=== PATIENT | male | born 1955 | race Caucasian/White ===

== ENCOUNTER → 2018-08-30 19:51 | Outpatient (CLI) | payer MEDICARE, MEDICAID, SELFPAY | PROVIDERS: Family Provider Internal Medicine; PCP Internal Medicine | DX: G47.33 Obstructive sleep apnea (adult) (pediatric) (principal) | CPT/HCPCS: 95810 ==

== ENCOUNTER 2019-01-03 13:17 | Observation (INO) | payer MEDICARE, MEDICAID, SELFPAY ==
[2019-01-03] VITALS (10 sets, daily range): BP systolic 103–125; BP diastolic 64–85; PULSE 60–73; RESP 14–18; TEMP 36.4–37.1; O2SAT 92–99; BMI 33.3; BMI 30.8; BMI 30.9
--- NOTE | 2019-01-03 13:35 | EKG12_ITS ---
Test Reason : CP ADMISSION Blood Pressure : / mmHG Vent. Rate : 063 BPM Atrial Rate : 063 BPM P-R Int : 118 ms QRS Dur : 080 ms QT Int : 394 ms P-R-T Axes : 070 055 031 degrees QTc Int : 403 ms Normal sinus rhythm Normal ECG Confirmed by MILA FRENCH, DIMITRIOS ([id number]), senior editor ROSA SAGASTUME ([id number] on 01/09/2019 5:21:05 PM Referred By: Blair Francisco Confirmed By:DIMITRIOS ZARAGOZA MD
--- NOTE | 2019-01-03 13:35 | RAD_ITS ---
STUDY: X-RAY CHEST REASON FOR EXAM: Male, 63 years old. Chest pain. Shortness of breath. TECHNIQUE: Single AP portable view of the chest. COMPARISON: Comparison is made with prior study dated September 08, 2016. FINDINGS: EKG electrodes are seen. Hyperinflation. Scattered calcified granulomas. There is no demonstrated pleural abnormality. There is mild cardiac enlargement. Normal mediastinum and laurence. Normal visualized pulmonary arteries. Normal visualized aortic arch and descending thoracic aorta. There are diffuse degenerative changes of the visualized thoracic spine. Normal visualized ribs, clavicles, and shoulders. There is no demonstrated abnormality of the visualized soft tissue structures of the upper abdomen. RAD/Chest 1 View (Portable) IMPRESSION: Hyperinflation. The lungs are clear. Electronically Signed: Clinton Banda, at 14:23 EDT , Service support ,
[2019-01-03 13:55] LABS: Absolute Lymphocyte Count 1.64 X10^3/ul (0.83-4.51); Absolute Neutrophil Count 4.5 X10^3/uL (2.0-7.7); Basophil# 0.01 X10^3/uL; Basophil% 0.1 % (0-1); Eosinophil# 0.21 X10^3/uL; Hematocrit 42.2 % (40-54); Hemoglobin 13.9 g/dl (13.0-16.5); Lymphocyte # 1.64 X10^3/ul (4.0); Lymphocyte % 23.7 % (19-41); Mean Corp Hgb Conc 32.9 g/gl (32-36); Mean Corpuscular Volume 94.2 fL (80-94); Mean Platelet Vol. 10.2 fl (6.2-12.0); Monocyte% 8.7 % (0-10); Neutrophil # 4.46 X10^3/uL (2.7-7.7); Neutrophil % 64.4 % (47-70); Platelet Count 270 K/mm3 (150-450); RBC Distribution Width CV 13.3 % (11.6-14.6); RBC Distribution Width SD 45.7 fl (35.1-43.9); Red Blood Count 4.48 M/mm3 (4.6-6.2); White Blood Count 6.9 K/mm3 (4.4-11.0)
[2019-01-03 14:03] LABS: Anion Gap 2 (5-15); BUN 19 mg/dL (7-18); Calcium,Total 8.7 mg/dL (8.5-10.1); Chloride 108 mmol/L (98-107); Creatinine, Serum 0.95 mg/dL (0.70-1.30); EST Glomerular Filtration Rate 84 mL/min (>60); Est Glom Filt Rate - Afr Amer 102 mL/min (>60); Estimated Creatinine Clearance 72.48 ml/min; Glucose 127 mg/dL (74-106); Sodium Level 139 mmol/L (136-145)
[2019-01-03 14:06] LABS: POSITIVE COUNT NO; POSITIVE DIFFERENTIAL NO; POSITIVE MORPHOLOGY NO
--- NOTE | 2019-01-03 14:14 | ED.VISSUMM ---
- ER Visit Summary Date of Service: 01/03/19 Chief Complaint: Chest pain History of Present Illness: The patient is a 63 M with history of stents x1 resents with chest pain that started 9 hours prior to arrival. No known injury. Pain is on the left. No fever or chills. He has no back pain or tearing sensation. He has no PE risk factors. Physical Examination: Otherwise normal exam he does not appear toxic. He has normal pulse ox, heart is regular lungs are clear bilaterally no chest wall tenderness he is got a soft and nontender abdomen with no lower extremity edema. Emergency Department Course and Treatment: Patient has an unremarkable EKG, chest x-ray is unremarkable except for a very slight effusion. He does have quite a few risk factors including prior PTCA, his last stress test was over 2 years ago, he will need admission for further cardiac testing Disposition: Admit to the hospital in stable condition Impression: Chest pain This note was generated with [employer] dictation software. It may contain incorrect words, spelling, and punctuation that were not noted in review of the chart prior to signing ED Disposition - Plan for ED Patient: Referrals: Grant Krause MD [Primary Care Provider] -
[2019-01-03] MEDS: Ondansetron 4 MG/2 ML Vial IV (14:22)
[2019-01-03] MEDS: Morphine 4 MG/ML Syringe IV (14:23)
--- NOTE | 2019-01-03 14:45 | PCM.HP.STD ---
Problem List (1) Chest pain Status: Acute (2) Type II diabetes mellitus Status: Chronic (3) Coronary artery disease Status: Chronic Comment: Status post stent 3 years ago. (4) Hyperlipidemia Status: Chronic (5) Hypertension Status: Chronic History of Present Illness Date of Admission: 01/03/19 Chief Complaint: Chest pain The patient is a 63 year old M with history of coronary artery disease status post 1 stent came to ED with chest pain started about 4 AM. Patient told he was awake watching TV at that time, felt like throbbing sensation, localized without radiation. It is not associated with shortness of breath, palpitation, dizziness or localized. Patient still feel some discomfort/throbbing sensation even after aspirin 4 tablets of 81 mg, 4 mg IV morphine sulfate. EKG normal sinus rhythm. There is no ST-T significant changes suggestive of ischemia. There is no change from the previous EKG. [] Past Medical History Past Medical History (Chronic Problems): Chronic Problems Type II diabetes mellitus (Chronic) Coronary artery disease (Chronic) Status post stent 3 years ago. Hyperlipidemia (Chronic) Hypertension (Chronic) Allergies No Known Allergies Allergy (Verified 01/03/19 13:16) Home Medications: Ambulatory Orders Medication Instructions Recorded Aspirin [Aspirin, Baby] 81 mg PO DAILY@0800 07/20/15 Metformin HCl [Glucophage] 500 mg PO BIDCM #60 tablet 07/23/15 Metoprolol(XL)Succ [Toprol Xl 50 mg PO DAILY #30 tablet 07/23/15 (Beta Raegan)] Nitroglycerin [Nitrostat] 0.4 mg SUBLINGUAL Q5M PRN #25 07/23/15 tablet Lisinopril [Prinivil] 5 mg PO DAILY 09/08/16 Tamsulosin HCl [Flomax] 0.4 mg PO DAILY 09/08/16 Fenofibrate [Lofibra] 160 mg PO DAILY 09/10/16 Lovastatin [Mevacor] 40 mg PO DAILY 09/10/16 Albuterol IH (ProAir) [Proair Hfa 1 - 2 puff INHALATION Q4H PRN PRN 01/03/19 (SP)Vent Pts] Surgical History: tonsillectomy, - - Left eye surgery, tonsillectomy. heart cath with stents Psychiatric History: No pertinent psych hx Smoking Status: Never smoker - *Family History Maternal History Items: Diabetes Paternal History Items: Heart Disease - Coronary artery disease/[place] Review of Systems Constitutional: Denies: Chills, Fever, Weight Change HEENT: Denies: Head Aches, Sinus Congestion, Sinus Drainage Cardiovascular: Reports: Chest Pressure, Edema. Denies: Palpitations Respiratory: Denies: Cough, Shortness of breath at rest, Sputum production Gastrointestinal: Denies: Abdominal Pain, Nausea, Vomiting Genitourinary: Denies: Dysuria Musculoskeletal: Denies: Joint Pain, Joint Tenderness Skin: Denies: Rash, Wounds Neurological: Denies: Numbness, Tingling, Focal weakness Psychiatric: Denies: Anxiety, Depression, Homicidal Ideations, Suicidal Ideations Hematologic/ Lymphatic: Denies: Easy Bruising, Easy Bleeding VTE Information - Inpt Only VTE Present on Admission: No VTE Mechan Device Prophylaxis: None VTE Pharm Prophylaxis ordered?: Yes - Physical Exam General: Alert, Oriented x3, Cooperative HEENT: Atraumatic, PERRLA, EOMI, Normocephalic Oral: Moist Mucosa Neck: Supple, No JVD, Negative Carotid Bruits Lungs: Clear to auscultation, No rhonchi, No wheeze, No rales, Diminished - Air entry is diminished in bilateral bases Cardiovascular: Regular rate, Regular Rhythm, Normal S1, Normal S2, No murmurs Abdomen: Bowel Sounds Present, Soft, Non Tender Extremities: Capillary Refill Less than 3 Seconds, Edema - Mild ankle edema. Skin: No rashes, No breakdown Musculoskeletal: No Tenderness to Palpation of Joints or Extremities, Arthritic Changes Neurological: Cranial nerves II-XII grossly intact Psych/Mental Status: Normal Affect, Appropriate Vital Signs Temp Pulse Resp BP Pulse Ox 98.7 F 60 16 103/73 98 01/03/19 13:12 01/03/19 14:10 01/03/19 14:10 01/03/19 14:10 01/03/19 14:10 Oxygen Flow Rate (L/min) 2 Oxygen Delivery Method Nasal Cannula Weight: 213 lb 2.992 oz Body Mass Index (BMI) 33.3 Laboratory Tests Past 24 Hrs 01/03/19 01/03/19 13:15 13:15 WBC 6.9 RBC 4.48 L Hgb 13.9 Hct 42.2 MCV 94.2 H MCH 31.0 MCHC 32.9 RDW 13.3 RDW Differential 45.7 H Plt Count 270 MPV 10.2 Immature Gran % (Auto) 0.100 Neut % (Auto) 64.4 Lymph % (Auto) 23.7 [place] % (Auto) 8.7 Eos % (Auto) 3.0 Baso % (Auto) 0.1 Absolute Neuts (auto) 4.5 Absolute Lymphs (auto) 1.64 Total Counted Not Reportable Sodium 139 Potassium 4.0 Chloride 108 H Carbon Dioxide 29.0 Anion Gap 2 L BUN 19 H Creatinine 0.95 Estim Creat Clear Calc 72.48 Est GFR (MDRD) Af Amer 102 Est GFR (MDRD) Non-Af 84 BUN/Creatinine Ratio 20.0 Glucose 127 H Calcium 8.7 Troponin I < 0.015 Assessment/Plan All Active Problems Chest pain (Acute) The patient is a 63 year old M with history of coronary artery disease status post 1 stent came to ED with chest pain started about 4 AM. Patient told he was awake watching TV at that time, felt like throbbing sensation, localized without radiation. It is not associated with shortness of breath, palpitation, dizziness or localized. Patient still feel some discomfort/throbbing sensation even after aspirin 4 tablets of 81 mg, 4 mg IV morphine sulfate. EKG normal sinus rhythm. There is no ST-T significant changes suggestive of ischemia. There is no change from the previous EKG. [] 1. Atypical chest pain: Patient is being admitted in PCU for observation to rule out acute coronary syndrome.Serial troponin enzymes and if negative, Lexiscan nuclear stress test tomorrow morning. Fasting profile tomorrow morning. Patient had nuclear stress test in October 2016 and was reported normal myocardial perfusion with preserved EF. Patient had cardiac cath in June 2015 and reported as proximal LAD 50% with mild mid segment disease. Left circumflex with previously placed stent patent with left to right collaterals. RCA totally occluded with [id number] collaterals. Preserved EF. Patient follows Dr. Barakat. 2. Diabetes mellitus type 2: On Accu-Chek before meals and at bedtime and cover with NovoLog sliding scale. 3. Hypertension and dyslipidemia: Home medications continued. Blood pressure controlled. Fasting lipid profile for tomorrow morning. 4. Obstructive sleep apnea on CPAP: Seems patient is noncompliant to CPAP. 5. DVT prophylaxis: On Lovenox 40 mg subcu daily. Clinical Impression(s) from Imaging Studies Chest X-Ray 01/03/19 13:35 IMPRESSION: Hyperinflation. The lungs are clear. Code Visit OBSV E&M: 09684 Initial observation care L3
--- NOTE | 2019-01-03 15:00 | EKG12_ITS ---
Test Reason : CP Blood Pressure : / mmHG Vent. Rate : 065 BPM Atrial Rate : 065 BPM P-R Int : 122 ms QRS Dur : 082 ms QT Int : 396 ms P-R-T Axes : 067 052 030 degrees QTc Int : 411 ms Normal sinus rhythm Normal ECG Confirmed by MILA FRENCH, DIMITRIOS ([id number]), online editor ROSA SAGASTUME ([id number]) on 01/09/2019 4:20:33 PM Referred By: Blair Francisco Confirmed By:DIMITRIOS ZARAGOZA MD
[2019-01-03 16:41] LABS: Bedside Glucose 112 mg/dL (70-110)
[2019-01-03] MEDS: Enoxaparin 40 MG/0.4 ML Syringe SC (16:48)
[2019-01-03] MEDS: Atorvastatin Calcium 80 MG Tablet PO (21:10)
[2019-01-03] MEDS: Metoprolol Tartrate 25 MG Tablet PO (21:10)
[2019-01-03 23:11] LABS: Bedside Glucose 96 mg/dL (70-110)
[2019-01-04] VITALS (10 sets, daily range): BP systolic 105–123; BP diastolic 59–78; PULSE 53–77; RESP 16–17; TEMP 36.6–36.9; O2SAT 92–100
[2019-01-04 05:36] LABS: Absolute Lymphocyte Count 1.68 X10^3/ul (0.83-4.51); Absolute Neutrophil Count 3.8 X10^3/uL (2.0-7.7); Basophil# 0.02 X10^3/uL; Basophil% 0.3 % (0-1); Eosinophil# 0.25 X10^3/uL; Eosinophils% 3.9 % (0-5); Hematocrit 39.7 % (40-54); Hemoglobin 12.8 g/dl (13.0-16.5); Lymphocyte # 1.68 X10^3/ul (4.0); Lymphocyte % 26.5 % (19-41); Mean Corp Hgb Conc 32.2 g/gl (32-36); Mean Corpuscular Hgb 30.3 pg (27.0-32.0); Mean Corpuscular Volume 94.1 fL (80-94); Mean Platelet Vol. 10.6 fl (6.2-12.0); Monocyte# 0.53 X10^3/uL; Monocyte% 8.4 % (0-10); Neutrophil # 3.84 X10^3/uL (2.7-7.7); Neutrophil % 60.7 % (47-70); Platelet Count 246 K/mm3 (150-450); Prothrombin Time (Protime)PT. 13.2 SECONDS (11.7-14.9); RBC Distribution Width CV 13.1 % (11.6-14.6); RBC Distribution Width SD 43.8 fl (35.1-43.9); Red Blood Count 4.22 M/mm3 (4.6-6.2); White Blood Count 6.3 K/mm3 (4.4-11.0)
[2019-01-04 05:37] LABS: Partial Thromboplast Time 25.3 Seconds (24.1-36.2)
[2019-01-04 05:49] LABS: POSITIVE COUNT NO; POSITIVE DIFFERENTIAL NO; POSITIVE MORPHOLOGY NO
--- NOTE | 2019-01-04 05:55 | EKG12_ITS ---
Test Reason : CP Blood Pressure : / mmHG Vent. Rate : 064 BPM Atrial Rate : 064 BPM P-R Int : 122 ms QRS Dur : 078 ms QT Int : 404 ms P-R-T Axes : 068 059 047 degrees QTc Int : 416 ms Normal sinus rhythm with sinus arrhythmia Normal ECG When compared with ECG of 03-JAN-2019 15:15, MANUAL COMPARISON REQUIRED, DATA IS UNCONFIRMED Confirmed by MILA FRENCH, DIMITRIOS ([id number]), primer expeditor and drier ROSA SAGASTUME ([id number]) on 01/09/2019 5:18:36 PM Referred By: Blair Francisco Confirmed By:DIMITRIOS ZARAGOZA MD
[2019-01-04 05:57] LABS: Anion Gap 8 (5-15); BUN 17 mg/dL (7-18); BUN/Creat Ratio 18.6 RATIO (10-20); Calcium,Total 8.7 mg/dL (8.5-10.1); Chloride 108 mmol/L (98-107); Cholesterol 128 mg/dL (200); Creatinine, Serum 0.92 mg/dL (0.70-1.30); EST Glomerular Filtration Rate 88 mL/min (>60); Est Glom Filt Rate - Afr Amer 106 mL/min (>60); Estimated Creatinine Clearance 74.84 ml/min; Glucose 114 mg/dL (74-106); High Density Lipoprotein 41 mg/dL; Sodium Level 143 mmol/L (136-145); Thyroid Stim Hormone (TSH) 1.86 uIU/mL (0.358-3.74); Triglycerides 74 mg/dL; Very Low Density Lipoprotein 15 mg/dL (5-40)
[2019-01-04] MEDS: Lisinopril 5 MG Tablet PO (06:24)
[2019-01-04] MEDS: Aspirin 81 MG TAB.CHEW PO (06:24)
[2019-01-04 07:01] LABS: Bedside Glucose 129 mg/dL (70-110)
[2019-01-04] MEDS: Fenofibrate 145 MG Tablet PO (09:59)
[2019-01-04] MEDS: Tamsulosin HCl 0.4 MG Capsule PO (09:59)
[2019-01-04] MEDS: Metoprolol Tartrate 25 MG Tablet PO (10:00)
--- NOTE | 2019-01-04 13:19 | STRESSREP ---
Stress Test Report Exercise stress myocardial perfusion scan. 63-year-old male with a history of chest pain. Stress protocol: Resting EKG demonstrates sinus bradycardia with a rate of 59 beats minute normal intervals are noted resting blood pressure 112/82 mmHg. Patient exercised according to regular Vinicio protocol for total duration of 5 minutes completing 2 minutes into stage II of the Vinicio protocol the maximum heart rate attained was 150 bpm which is 96% of maximum predicted heart rate maximum workload was 7 metabolic equivalents. At rest there were no ST or T wave changes noted suggest ischemia peak exercise Myocardial perfusion protocol. 14.2 mCi of technetium 99m sestamibi was injected at rest. Patient exercised according to regular Vinicio protocol for 5 minutes at peak exercise 44.6 mCi of technetium 99m sestamibi was injected stress images were obtained stress and rest images were reconstructed and compared in the short axis vertical and horizontal long axis. Gated images were also obtained Perfusion SPECT analysis: Review of the stress images demonstrate normal uptake of tracer noted in all areas of myocardium the resting images similarly demonstrate normal uptake of tracer noted in all areas of the myocardium. No areas of reversibility are noted suggest ischemia no previous infarct is noted. Gated SPECT analysis: The gated ejection fraction is noted to be 67%. Conclusion: Normal exercise myocardial perfusion stress test at a moderate workload. Preserved ejection fraction.
[2019-01-04 14:15] LABS: Bedside Glucose 114 mg/dL (70-110)
[2019-01-04 14:51] LABS: D-Dimer Quantitative (DVT/PE) 0.42 FEU/ug/m (0.27-0.49)
--- NOTE | 2019-01-04 14:53 | DCINST_ITS ---
You will use the following diet at home:: Cardiac Your food should be the consistency of: Regular Your liquids should be the consistency of: Regular/Thin Discharge Activity: Return to Normal Activity Allergies/Adverse Reactions: Allergies No Known Allergies Allergy (Verified 01/03/19 13:16) Medications to take at Discharge Aspirin [Aspirin, Baby] 81 mg PO DAILY@0800 07/20/15 Metformin HCl [Glucophage] 500 mg PO BIDCM #60 tablet 07/23/15 Nitroglycerin [Nitrostat] 0.4 mg SUBLINGUAL Q5M PRN #25 tablet 07/23/15 Lisinopril [Prinivil] 5 mg PO DAILY 09/08/16 Tamsulosin HCl [Flomax] 0.4 mg PO DAILY 09/08/16 Fenofibrate [Lofibra] 160 mg PO DAILY 09/10/16 Albuterol IH (ProAir) [Proair Hfa] 1 - 2 puff INHALATION Q4H PRN PRN 01/03/19 Atorvastatin Calcium [Lipitor] 80 mg PO QHS 01/03/19 Metoprolol Tartrate [Lopressor (beta natan)] 25 mg PO BID 01/03/19 Primary Care Physician: Grant Krause MD [Primary Care Provider] - Please follow up with your Primary Care Physician in: 1-2 weeks Test Results: Test results from this visit will be discussed in further detail at your follow- up appointment, if applicable. Proposed Discharge Date: 01/04/19
--- NOTE | 2019-01-04 14:53 | PCM.DC.SUM ---
Discharge Date and Diagnosis Date of Admission: 01/03/19 Date of Discharge: 01/04/19 - Primary Discharge Diagnosis Chest pain - musculoskeletal T2DM Hx CAD prior stents HLD HTN Obesity - Secondary Discharge Diagnosis Chronic Problems Type II diabetes mellitus (Chronic) Coronary artery disease (Chronic) Status post stent 3 years ago. Hyperlipidemia (Chronic) Hypertension (Chronic) Hospital Course and Treatment Imaging Results: 01/04/19 05:55 Nuclear Stress Test - Treadmil [NM] Routine Operations: None Procedures: Stress test Summary of Care Provided: Hospital course: The patient is a 63 year old M with a past medical history of CAD with prior stents, hypertension, hyperlipidemia, type 2 diabetes, who presents the emergency room with complaint of new left-sided aching pain in his left chest wall. In the emergency room he had a EKG that was negative, troponin that was negative, negative chest x-ray. Chest pain continued. He was admitted to the PCU and placed on telemetry. He had no events on telemetry. Troponin was cycled and remained negative. The following morning he underwent stress test which was negative for ischemia. As he continued to have left-sided pain, and reported that he has been sedentary lately, and has been having calf pain when he walks, it was felt that a d-dimer should be checked to rule out PE. This was negative. As the pain was reproducible with palpation, at this time it is most likely that the chest pain is due to a musculoskeletal etiology. The patient was then discharged home in stable condition and advised to follow-up with his PCP in 1-2 weeks. This patient was seen by Keo Bernard PA-C under the supervision of Doctor []. [] - Physical Exam General: Alert, Oriented x3, Cooperative HEENT: Atraumatic, PERRLA, EOMI, Normocephalic Neck: Supple, No JVD, Negative Carotid Bruits Lungs: Clear to auscultation, Normal air movement Cardiovascular: Regular rate, No murmurs, - - Chest pain reproducible with palpation over the lateral left ribs Abdomen: Bowel Sounds Present, Soft, Non Tender Extremities: No edema, Capillary Refill Less than 3 Seconds Skin: No rashes, No breakdown Musculoskeletal: No Tenderness to Palpation of Joints or Extremities Neurological: Cranial nerves II-XII grossly intact Psych/Mental Status: Normal Affect, Appropriate, Alert and oriented to time, place, person, mood and affect Vital Signs Temp Pulse Resp BP Pulse Ox 97.9 F 77 17 123/73 H 92 01/04/19 09:55 01/04/19 10:00 01/04/19 09:55 01/04/19 10:00 01/04/19 09:55 Oxygen Flow Rate (L/min) 2 Oxygen Delivery Method Room Air Weight: 197 lb Body Mass Index (BMI) 30.8 Intake and Output for Last 24 Hours 01/02/19 01/03/19 01/04/19 23:59 23:59 23:59 Intake Total 750 / 750 700 / 700 Balance 750 / 750 700 / 700 Laboratory Tests Past 24 Hrs 01/03/19 01/03/19 01/04/19 16:20 19:20 04:58 WBC RBC Hgb Hct MCV MCH MCHC RDW RDW Differential Plt Count MPV Immature Gran % (Auto) Neut % (Auto) Lymph % (Auto) [place] % (Auto) Eos % (Auto) Baso % (Auto) Absolute Neuts (auto) Absolute Lymphs (auto) Total Counted PT INR APTT D-Dimer Quant (PE/DVT) Sodium 143 Potassium 4.0 Chloride 108 H Carbon Dioxide 27.0 Anion Gap 8 BUN 17 Creatinine 0.92 Estim Creat Clear Calc 74.84 Est GFR (MDRD) Af Amer 106 Est GFR (MDRD) Non-Af 88 BUN/Creatinine Ratio 18.6 Glucose 114 H Calcium 8.7 Troponin I < 0.015 < 0.015 Triglycerides 74 Cholesterol 128 LDL Cholesterol 72 VLDL Cholesterol 15 HDL Cholesterol 41 TSH 1.86 01/04/19 01/04/19 01/04/19 04:58 04:58 14:24 WBC 6.3 RBC 4.22 L Hgb 12.8 L Hct 39.7 L MCV 94.1 H MCH 30.3 MCHC 32.2 RDW 13.1 RDW Differential 43.8 Plt Count 246 MPV 10.6 Immature Gran % (Auto) 0.200 Neut % (Auto) 60.7 Lymph % (Auto) 26.5 [place] % (Auto) 8.4 Eos % (Auto) 3.9 Baso % (Auto) 0.3 Absolute Neuts (auto) 3.8 Absolute Lymphs (auto) 1.68 Total Counted Not Reportable PT 13.2 INR 1.0 APTT 25.3 D-Dimer Quant (PE/DVT) 0.42 Sodium Potassium Chloride Carbon Dioxide Anion Gap BUN Creatinine Estim Creat Clear Calc Est GFR (MDRD) Af Amer Est GFR (MDRD) Non-Af BUN/Creatinine Ratio Glucose Calcium Troponin I Triglycerides Cholesterol LDL Cholesterol VLDL Cholesterol HDL Cholesterol TSH POC Glucose 01/04/19 01/04/19 01/03/19 14:01 06:54 21:12 POC Glucose 114 H 129 H 96 01/03/19 16:35 POC Glucose 112 H Discharge Diet: Low fat/ Low Cholesterol, 1800 Calorie Control Diet, - - No added salt Discharge Activity: Return to Normal Activity Home Medications: Medications to take at Discharge Aspirin [Aspirin, Baby] 81 mg PO DAILY@0800 07/20/15 Metformin HCl [Glucophage] 500 mg PO BIDCM #60 tablet 07/23/15 Nitroglycerin [Nitrostat] 0.4 mg SUBLINGUAL Q5M PRN #25 tablet 07/23/15 Lisinopril [Prinivil] 5 mg PO DAILY 09/08/16 Tamsulosin HCl [Flomax] 0.4 mg PO DAILY 09/08/16 Fenofibrate [Lofibra] 160 mg PO DAILY 09/10/16 Albuterol IH (ProAir) [Proair Hfa] 1 - 2 puff INHALATION Q4H PRN PRN 01/03/19 Atorvastatin Calcium [Lipitor] 80 mg PO QHS 01/03/19 Metoprolol Tartrate [Lopressor (beta natan)] 25 mg PO BID 01/03/19 Primary Care Physician: Grant Krause MD [Primary Care Provider] - Please follow up with your Primary Care Physician in: 1-2 weeks Disposition: Home Minutes spent on discharge:: 35 Patient Condition:: Stable Medical Necessity - Tobacco Use Smoking Status: Never smoker Meaningful Use Info Meaningful Use Diagnoses (Choose all that apply): None applicable
== END 2019-01-04 14:53 | disposition home or self-care (01) ==
LOC: ED 13:34 → PCU 14:41
PROVIDERS: Physician Assistant; Admitting Provider Internal Medicine; Emergency Provider Emergency Medicine; Family Provider Internal Medicine; PCP Internal Medicine; Referring Provider Internal Medicine; Visit Provider Internal Medicine
DX: R07.89 Other chest pain (principal); I25.10 Atherosclerotic heart disease of native coronary artery without angina pectoris; E11.9 Type 2 diabetes mellitus without complications; E78.5 Hyperlipidemia, unspecified; I10 Essential (primary) hypertension; Z79.899 Other long term (current) drug therapy; Z79.82 Long term (current) use of aspirin; Z79.84 Long term (current) use of oral hypoglycemic drugs; Z95.5 Presence of coronary angioplasty implant and graft; G47.33 Obstructive sleep apnea (adult) (pediatric); E66.9 Obesity, unspecified; Z68.30 Body mass index [BMI] 30.0-30.9, adult; Z71.3 Dietary counseling and surveillance
CPT/HCPCS: 36415; 71045; 78452; 80048; 80061; 82962; 84443; 84484; 85025; 85379; 85610; 85730; 93005; 93017; 96372; 96374; 96375; 99218; 99284; A9500; J7030; A4216; G0378; J2405

== ENCOUNTER → 2020-04-02 06:56 | Outpatient (CLI) | payer MEDICARE, MEDICAID, SELFPAY ==
[2020-03-25 11:01] VITALS: BMI 33.2
[2020-04-02 07:32] LABS: AST(SGOT) 16 U/L (15-37); Alanine Aminotransfer ALT/SGPT 19 U/L (16-61); Albumin, Serum 3.4 g/dL (3.2-5.0); Alkaline Phosphatase 49 U/L (45-117); Bilirubin, Direct 0.13 mg/dL (0.00-0.30); Cholesterol 144 mg/dL (200); Globulin 3.8 g/dL (2.2-4.2); High Density Lipoprotein 38 mg/dL; Protein, Total 7.2 g/dL (6.4-8.2); Triglycerides 85 mg/dL; Very Low Density Lipoprotein 17 mg/dL (5-40)
--- NOTE | 2020-04-02 09:25 | STRESSREP_ITS ---
Stress Test Report Date: Procedure: Exercise tolerance test/imaging study Indications: Chest pain; CAD; PCI Consent: Per the patient Procedure: The patient exercised on a Vinicio protocol for 4 minutes and 13 seconds completing Stage I and 1 minute and 13 seconds of Stage II achieving a peak heart rate of 148 bpm (96 % predicted maximal heart rate) with a peak blood pressure 162/90 mmHg and a peak MET capacity of 6 METs. The baseline ECG demonstrated sinus rhythm. The peak exercise ECG demonstrated somatic/motion artifact with [id number] ST segment variability with the appearance of approximately 1 to [address] segment depression in leads II, III, aVF, and V4 through V6 with gradual resolution towards baseline in recovery. There were no cardiac dysrhythmias pretest, during exercise, or recovery. The functional capacity was considered decreased. There was no complaint of chest discomfort during exercise or recovery. The examination was discontinued secondary to dyspnea. Impression: 1. Technically adequate (percent predicted maximal heart rate greater than 85%) exercise tolerance test 2. Peak exercise ECG with somatic/motion artifact with [id number] ST segment variability with the appearance of approximately 1 to [address] segment depression in leads II, III, aVF, and V4 through V6 with gradual resolution towards baseline in recovery 3. There were no cardiac dysrhythmias pretest, during exercise, or recovery 4. Nuclear images pending Myocardial perfusion imaging study: Technique: The patient was injected with 14.1 mCi of technetium 99m Cardiolite and subsequently rest SPECT Cardiolite nuclear imaging was obtained in the horizontal long, vertical long, and short axis views. The patient exercised on a Vinicio protocol for 4 minutes and 13 seconds completing Stage I and 1 minute and 13 seconds of Stage II achieving a peak heart rate of 148 bpm (96 % predicted maximal heart rate) with a peak blood pressure 162/90 mmHg and a peak MET capacity of 6 METs. The patient was injected with 44.5 mCi of technetium 99m Cardiolite and subsequently stress SPECT Cardiolite nuclear imaging was obtained in the horizontal long, vertical long, and short axis views. A gated Cardiolite study at peak stress was obtained. Interpretation: Rest and stress SPECT Cardiolite nuclear imaging status post realignment, normalization, and attenuation correction, demonstrates status post stress the appearance of diminished myocardial perfusion/tracer uptake in the basal towards mid inferior segments noted more prominently on the short axis views. There is diminished end systolic thickening and brightening in the aforementioned areas. The gated Cardiolite study demonstrates myocardial thickening and inward wall motion. The reported LVEF is 71 %. Impression: 1. Rest and stress SPECT Cardiolite nuclear imaging demonstrate myocardial perfusion changes demonstrating following stress the appearance of diminished myocardial perfusion/tracer uptake in the basal towards mid inferior segments noted more prominently on the short axis views appearing suggestive of but not diagnostic of stress-induced myocardial ischemia. 2. The gated Cardiolite study reports an LVEF of 71 %. This note was generated with [employer] software. It may contain incorrect words, spelling, and punctuation that were not noted in checking the note before signing.
== END ==
PROVIDERS: PCP Internal Medicine; Referring Provider Internal Medicine Cardiovascular Disease; Visit Provider Internal Medicine Cardiovascular Disease
DX: I25.10 Atherosclerotic heart disease of native coronary artery without angina pectoris (principal); Z95.5 Presence of coronary angioplasty implant and graft; E78.00 Pure hypercholesterolemia, unspecified; I10 Essential (primary) hypertension; R07.9 Chest pain, unspecified
CPT/HCPCS: 36415; 78452; 80061; 80076; 93017; A9500; A4216

== ENCOUNTER → 2020-04-18 14:00 | Outpatient (CLI) | payer MEDICARE, MEDICAID, SELFPAY ==
[2020-03-25 11:01] VITALS: BMI 33.2
--- NOTE | 2020-04-18 14:47 | RAD_ITS ---
STUDY: X-RAY CHEST REASON FOR EXAM: Male, 65 years old. ABNORMAL STRESS TEST ON 04/02 TECHNIQUE: PA and lateral views of the chest. COMPARISON: 01/03/2019 FINDINGS: Lungs are hyperexpanded with chronic interstitial changes, no superimposed infiltrate or effusion. There is no demonstrated pleural abnormality. Normal size heart. Normal mediastinum and laurence. Normal visualized pulmonary arteries. Normal visualized aortic arch and descending thoracic aorta. There are diffuse degenerative changes of the visualized thoracic spine. Normal visualized ribs, clavicles, and shoulders. There is no demonstrated abnormality of the visualized soft tissue structures of the upper abdomen. RAD/Chest PA and Lateral IMPRESSION: Hyperexpanded lungs with chronic interstitial changes, no superimposed acute pulmonary process Electronically Signed: Brenden Ledezma MD at 15:18 EDT , Service support ,
== END ==
PROVIDERS: PCP Internal Medicine; Referring Provider Physician Assistant Medical; Visit Provider Physician Assistant Medical
DX: I25.10 Atherosclerotic heart disease of native coronary artery without angina pectoris (principal); E78.00 Pure hypercholesterolemia, unspecified; I10 Essential (primary) hypertension
CPT/HCPCS: 71046

== ENCOUNTER 2020-04-23 08:06 | Day surgery (SDC) | payer MEDICARE, MEDICAID, SELFPAY ==
[2020-03-25 11:01] VITALS: BMI 33.2
[2020-04-18 15:10] LABS: Absolute Neutrophil Count 3.6 X10^3/uL (2.0-7.7); Basophil# 0.02 X10^3/uL; Basophil% 0.4 % (0-1); Eosinophil# 0.13 X10^3/uL; Eosinophils% 2.5 % (0-5); Hematocrit 41.6 % (40-54); Hemoglobin 13.4 g/dL (13.0-16.5); Lymphocyte % 20.8 % (19-41); Mean Corp Hgb Conc 32.2 g/dL (32-36); Mean Corpuscular Hgb 30.2 pg (27.0-32.0); Mean Corpuscular Volume 93.9 fL (80-94); Mean Platelet Vol. 11.9 fl (6.2-12.0); Monocyte# 0.43 X10^3/uL; Monocyte% 8.1 % (0-10); NRBC Flagged by Analyzer 0 % (0-5); Neutrophil % 67.8 % (47-70); POSITIVE COUNT YES; RBC Distribution Width CV 13.2 % (11.6-14.6); RBC Distribution Width SD 45.4 fl (35.1-43.9); Red Blood Count 4.43 M/mm3 (4.6-6.2); White Blood Count 5.3 K/mm3 (4.4-11.0)
[2020-04-18 15:15] LABS: International Normalized Ratio 0.9; Prothrombin Time (Protime)PT. 11.6 SECONDS (11.7-14.9)
[2020-04-18 15:31] LABS: Anion Gap 2 (5-15); BUN 21 mg/dL (7-18); BUN/Creat Ratio 22.4 RATIO (10-20); Calcium,Total 8.8 mg/dL (8.5-10.1); Chloride 110 mmol/L (98-107); Creatinine, Serum 0.94 mg/dL (0.70-1.30); EST Glomerular Filtration Rate 85 mL/min (>60); Est Glom Filt Rate - Afr Amer 103 mL/min (>60); Glucose 158 mg/dL (74-106); Potassium 4.2 mmol/L (3.5-5.1); Sodium Level 140 mmol/L (136-145)
[2020-04-18 15:46] LABS: Differential Indicated SCAN CRITERIA MET
[2020-04-18 15:49] LABS: Differential Comment SCANNED; Platelet Estimate ADEQUATE (ADEQ)
--- NOTE | 2020-04-19 07:38 | HP.PCM_ITS ---
<Nagi Gan - Last Filed: 04/22/20 09:39> History and Physical Date of Admission: 04/23/20 Intake Vital Signs: See EMR Intake Visit Reasons: [facility] Allergies No Known Allergies Allergy (Verified 03/25/20 11:14) Medications See EMR [facility] Medical History Presence of stent in coronary artery (Chronic ~04/05/12) Pure hypercholesterolemia (Chronic) Essential hypertension (Chronic) Atherosclerotic heart disease of [place] coronary artery without angina pectoris (Chronic) Chest pain (Acute) Type II diabetes mellitus (Chronic) Hyperlipidemia (Inactive) Hypertension (Inactive) Surgical History Presence of coronary angioplasty implant and graft (Chronic ~04/05/12) History of umbilical hernia repair (Resolved) Family History Sister Hypertension Social History (Updated 03/25/20 @ 11:[address] Chirag Barakat MD) Smoking Status: Never smoker alcohol intake: current substance use type: marijuana HPI HPI XAVI CABELLO, is a 65 year old white male who presents to the [facility] today for a left heart catheterization. He has a history of CAD, PCI, hyperlipidemia, and hypertension. Overall he states he is doing reasonably well. He does note that at times when he exerts, such as going up an incline, he does develop some chest discomfort. He feels this is par for the course for his diagnosis. He states he has not had use his nitroglycerin sublingual. He has not had any obvious orthopnea or PND. He denies any near-syncope or syncope. He was checking his PCP visit from 03-15-2020. At that time he states his temperature was 98.6, pulse of 70, blood pressure 122/76 mmHg, respiratory rate 16, O2 saturation of 96% on room air, weight of 219 pounds, and a BMI of 34.4. He states his PCP has not checked his lipid labs to the best of his knowledge. Due to symptoms expressed during telephone visit on 03/25/2020 patient underwent stress test on 04/02/2020, that showed diminished myocardial perfusion/tracer uptake in the basal towards mid inferior segments noted more prominently on the short axis views appearing suggestive of but not diagnostic of stress-induced myocardial ischemia and peak exercise ECG showing appearance of approximately 1 to [address] segment depression in leads 2, 3, aVF, and V4 through V6 with gradual resolution towards baseline in recovery. Due to his abnormal stress test, he presents today for a heart catheterization to evaluate further. ROS Const Constitutional: Positive for fatigue; no anorexia, body ache, chills, excessive sweating, fever(s), frequent falls, headache(s), decreased energy, malaise, night sweats, snoring, weakness, weight change, sleep problems, abnormal sleep pattern, change in appetite or other Eyes Eyes: No visual disturbances ENT ENT: No abnormal hearing, headache(s) or neck pain Resp Respiratory: Positive for shortness of breath sob: SOB with activity (slight; going upstairs); no cough, change in phlegm color, chest congestion, excessive phlegm production, hemoptysis, pain on inspiration, pain with cough, snoring, stridor, wheezing or other Cardio Cardiology: Positive for chest pain with exertion (Rare); no chest pain at rest, leg pain with exertion, excessive sweating, shortness of breath, dyspnea on exertion, generalized swelling, irregular heart rhythm, lightheadedness, orthopnea, radiating jaw, neck or arm pain, fast heart rate, slow heart rate, palpitations or other Musc Musculoskeletal: Positive for joint pain (Lt knee); no abnormal walking, back pain, deformity, joint swelling, limited range of motion, loss of height, muscle cramps, muscle weakness, decreased muscle mass, body aches, neck pain, numbness, radiating pain into limb, stiffness, tingling or other Neuro Neurology: Positive for unsteady gait/balance (slight); no abnormal walking, abnormal hearing, abnormal movements, abnormal speech, behavioral changes, confusion, dizziness, weakness, frequent falls, headache(s), lack of coordination, loss of vision, memory loss, numbness, tingling, visual disturbances, restless legs, fainting, tremor(s) or other Psych Psychiatric: No abnormal sleep pattern, No behavioral changes, No change in appetite, No confusion, No memory loss Endo Endocrine: Positive for fatigue; no excessive sweating Aller/Imm Allergy/Immunologic: No wheezing Cardiology Exam Const Appearance: cooperative, healthy appearing, comfortable and no acute distress Nutritional Appearance: well nourished and obese Orientation: alert, awake and oriented x3 Head Head: normal to inspection Ears: hearing grossly normal bilaterally Nose: external nose normal Face and Sinus: face symmetric Mouth: oral mucosae normal Eyes General: appearance normal, both eyes and all related structures Eyelids: eyelids normal EOM: EOM intact bilaterally Neck Neck: normal visual inspection and no JVD Carotids: normal carotid upstroke Chest Chest inspection: normal inspection of the chest, symmetric chest movement and normal respiratory effort; negative cough Auscultation: Bilateral: Clear to Auscultation Cardio Rate: regular rate Rhythm: regular rhythm Heart sounds: S1 normal and S2 normal; negative rub, gallop or murmur GI GI: normal to inspection and obese Neuro General: alert, awake, oriented x3 and CN's II-XI intact bilaterally Skin Skin: no rashes or lesions noted Extremities Pulses: Normal: Right Posterior Tibial Pulse, Left Posterior Tibial Pulse, Right Radial Pulse, Left Radial Pulse Lower Extremity Edema: None: Bilateral Psych Psychological: normal affect Musc Musculoskeletal: No muscle weakness Details: Details:: Exam was limited due to phone visit with no video. Supplemental Info Transthoracic echocardiogram: 07-28-13: [facility] CONCLUSIONS: ? Exam indication: Chest Pain ? The left ventricle is normal in size. There is mild left ventricular hypertrophy. Left ventricular systolic function is normal. EF ? 57 ? 5% (20 biplane) Baseline left ventricular diastolic function is normal. ? The right ventricle is normal in size. Right ventricular systolic function is normal. ? There are no significant valvular abnori?alities. ? No prior echocardiographic exam available for comparison. Stress Test Report Date: Procedure: Exercise tolerance test/imaging study Indications: Chest pain; CAD; PCI Consent: Per the patient Procedure: The patient exercised on a Vinicio protocol for 4 minutes and 13 seconds completing Stage I and 1 minute and 13 seconds of Stage II achieving a peak heart rate of 148 bpm (96 % predicted maximal heart rate) with a peak blood pressure 162/90 mmHg and a peak MET capacity of 6 METs. The baseline ECG demonstrated sinus rhythm. The peak exercise ECG demonstrated somatic/motion artifact with [id number] ST segment variability with the appearance of approximately 1 to [address] segment depression in leads II, III, aVF, and V4 through V6 with gradual resolution towards baseline in recovery. There were no cardiac dysrhythmias pretest, during exercise, or recovery. The functional capacity was considered decreased. There was no complaint of chest discomfort during exercise or recovery. The examination was discontinued secondary to dyspnea. Impression: 1. Technically adequate (percent predicted maximal heart rate greater than 85%) exercise tolerance test 2. Peak exercise ECG with somatic/motion artifact with [id number] ST segment variability with the appearance of approximately 1 to [address] segment depression in leads II, III, aVF, and V4 through V6 with gradual resolution towards baseline in recovery 3. There were no cardiac dysrhythmias pretest, during exercise, or recovery 4. Nuclear images pending Myocardial perfusion imaging study: Technique: The patient was injected with 14.1 mCi of technetium 99m Cardiolite and subsequently rest SPECT Cardiolite nuclear imaging was obtained in the horizontal long, vertical long, and short axis views. The patient exercised on a Vinicio protocol for 4 minutes and 13 seconds completing Stage I and 1 minute and 13 seconds of Stage II achieving a peak heart rate of 148 bpm (96 % predicted maximal heart rate) with a peak blood pressure 162/90 mmHg and a peak MET capacity of 6 METs. The patient was injected with 44.5 mCi of technetium 99m Cardiolite and subsequently stress SPECT Cardiolite nuclear imaging was obtained in the horizontal long, vertical long, and short axis views. A gated Cardiolite study at peak stress was obtained. Interpretation: Rest and stress SPECT Cardiolite nuclear imaging status post realignment, normalization, and attenuation correction, demonstrates status post stress the appearance of diminished myocardial perfusion/tracer uptake in the basal towards mid inferior segments noted more prominently on the short axis views. There is diminished end systolic thickening and brightening in the aforementioned areas. The gated Cardiolite study demonstrates myocardial thickening and inward wall motion. The reported LVEF is 71 %. Impression: 1. Rest and stress SPECT Cardiolite nuclear imaging demonstrate myocardial perfusion changes demonstrating following stress the appearance of diminished myocardial perfusion/tracer uptake in the basal towards mid inferior segments noted more prominently on the short axis views appearing suggestive of but not diagnostic of stress-induced myocardial ischemia. 2. The gated Cardiolite study reports an LVEF of 71 %. Cardiac catheterization: 07-23-15 CONCLUSION: 1. Angiographically normal left main coronary artery, 2. Left anterior descending artery with proximal 50% stenosis and mild mid segment disease, 3. Left circumflex artery, which is codominant with previously placed stent which is patent and [id number] collaterals. 4. Right coronary artery which is totally occluded with [id number] collaterals. 5. Preserved ejection fraction. PCI: 04-05-12: [facility] IMPRESSION: 1. Severe CAD of the mid circumflex. Chronically occluded right coronary artery. 2. A Vision bare metal stent was deployed due to history of alcohol use, drug use, financial concerns. Quality Reporting Medication Reconciliation ([facility] 68) albuterol sulfate 90 mcg/actuation 1 - 2 puffs inhalation Q4H PRN PRN aspirin 81 mg PO DAILY@0800 atorvastatin 80 mg PO QHS fenofibrate 160 mg PO DAILY fluticasone propionate 50 mcg/actuation (Allergy Relief (fluticasone)) 1 spray intranasal BID lisinopril 5 mg PO DAILY metformin 850 mg PO BID metoprolol tartrate 25 mg PO BID nitroglycerin 0.4 mg sublingual Q5M PRN sildenafil (Viagra) 50 mg PO DAILY PRN tamsulosin 0.4 mg PO DAILY BMI Screening ([facility] 69) Body Mass Index (BMI): 34.9 Tobacco Screening ([facility] 138) Smoking Status: Never smoker Assessment & Plan 1. Atherosclerosis of [place] coronary artery of [place] heart without angina pectoris I25.10 Plan At the present time there is some concern about his exertional chest discomfort. He seems to have a difficult time describing it. It does not happen at rest or at night. Patient's stress test on 04/02/2020 was considered to be abnormal. He will proceed with left heart catheterization to evaluate further. Based on results, further recommendation will be made. 2. Presence of stent in coronary artery Z95.5 PTCA/BMS to Mid CX 04/05/12 Plan He has undergone previous PCI as noted. Based on results of his heart catheterization further recommendation will be made. 3. Pure hypercholesterolemia E78.00 Plan He will be asked to have future fasting lipid hepatic profile. 4. Essential hypertension I10 Plan His blood pressure that he reports from his recent visit appear to be well controlled. He will continue his current medical therapy and follow-up. 5. Chest pain, unspecified type R07.9 Plan He does have exertional chest discomfort and an abnormal stress test. Thus, he will proceed with heart catheterization to further evaluate coronary artery disease. Thank you for allowing me to participate in the care of your patient. Please don't hesitate to call if any issues arise. This note was generated using a voice recognition system and there may be incorrect words, spelling or punctuation that were not noted when reviewing the office note prior to saving. Procedure Criteria Procedure Type: Elective COVID Risk Discussion: The surgeon/proceduralist and patient have discussed in detail the risk of exposure to and/or potential harm posed by the COVID-19 virus with having a surgery/procedure at this time versus the risk of delaying the surgery/pro cedure. It is not possible to know either the risk of delaying the surgery or procedure or chance of getting an infection with perfect accuracy, but a joint decision was made between the patient and the surgeon/proceduralist to proceed at this time with the scheduled surgery/procedure as indicated on the consent form. <Chirag Barakat - Last Filed: 04/23/20 07:45> History and Physical Addendum: Date: 04-23-2020 I have re-examined the patient. There are no clinical changes since date of exam.
[2020-04-23 08:17] VITALS: BMI 33.2
--- NOTE | 2020-04-23 09:58 | CL.D_ITS ---
Patient Name: XAVI CABELLO Study Date: 04/23/2020 Performing: Chirag Barakat MD Ht: 66.92 inches 170 cm : 1955 Wt: 211.64 lbs 96 kg Age: 65 Gender: male BSA: 2.07 PROCEDURE(S) PERFORMED [id number]/COR/LV CLINICAL PROFILE AND INDICATIONS Indications: Suspected CAD Heart Failure: None Stress/Imaging Date: 04/02/2020Stress Test with SPECT MPI: Positive Angina Classification Anginal Classification w/in 2 Weeks: CCS III CAD Presentations: Stable angina. CONCLUSIONS Elevated Left Ventricular End Diastolic Pressure Segmented LV systolic dysfunction- Mild LVEF: by LV gram 55 % [place] Multivessel CAD Left to Right collateral flow RECOMMENDATIONS Risk factor modification Medical therapy DESCRIPTION OF PROCEDURE The patient arrived to the procedure lab. The risks and benefits of the procedure as well as a full d escription of our services here and current unavailability of surgical backup were fully explained to the patient and/or their significant other prior to the catheterization. The Timeout was completed, verifying the correct patient and procedure. The patient's procedural site was prepped and draped in the usual fashion. Local anesthetic was given subcutaneously to right radial region with Lidocaine 2% . Using a modified Seldinger technique, arterial access was obtained via the right radial artery, a 6 Fr sheath was inserted. Right Coronary Artery selective angiography was then performed in multiple v iews using a 5 Fr. 4.0 [place] catheter. Left Coronary Artery selective angiography was performed in mu ltiple views using a 5 Fr. 4.0 [place] catheter. Left Ventriculography was performed in BRANCH projection using a 5 Fr. Pigtail catheter. LV to AO pullback pressures were then recorded.The arterial sheath was pulled and a TR Band was applied for hemostasis CORONARY ANGIOGRAPHY DOMINANCE: Right Dominant LEFT HEART ASSESSMENT Left Ventricular Ejection Fraction: by LV Gram 55 % Inferior Mid Hypokinesis Elevated Left Ventricular End Diastolic Pressure LVEDP: 15 mmHg LEFT MAIN: Angiographically normal LEFT ANTERIOR DESCENDING ARTERY: OSTIAL LAD: 10 - 25 % Stenosis MID LAD: Mild luminal irregularities CIRCUMFLEX ARTERY: Mild luminal irregularities MID CIRC: Previously placed stent has an instent smooth; eccentric; 25 % restenosis RIGHT CORONARY ARTERY: PROX RCA: is occluded COLLATERAL FLOW: Collateral flow from Left to Right AORTIC ROOT: Angiographically normal COMPLICATIONS No Complications PROCEDURE MEDICATIONS Fentanyl 50 mcg IV Versed 1 mg IV Oxygen: 2 L/min via nasal cannula Heparin diluted in 23cc Heparinized saline. Patient given 10cc IA of this solution. 04/23/2020 09:23: 29 Verapamil 2.5mg, Ntg 100mcgs, 2000 units of Heparin diluted in 23cc Heparinized saline. Patient give n 10cc IA of this solution. 04/23/2020 09:23:29 SUMMARY OF HEMODYNAMIC DATA Time AIR REST AO 102/63 (83) SA 09:25:06 LV 128/-3, 18 09:33:27 LV 128/-1, 15 09:33:34 LV 117/1, 21 09:34:21 LV 117/-2, 17 09:34:28 LVp 119/-3, 17 09:34:35 AOp 108/61 (82) 09:34:40 ECG 09:49:02 Signed By Chirag Barakat MD On 04/23/2020 09:58:19 Chirag Barakat MD
== END 2020-04-23 11:10 | disposition home or self-care (01) ==
LOC: CLSP 08:08
PROVIDERS: Physician Assistant Medical; PCP Internal Medicine; Referring Provider Internal Medicine Cardiovascular Disease; Visit Provider Internal Medicine Cardiovascular Disease
DX: I25.10 Atherosclerotic heart disease of native coronary artery without angina pectoris (principal); I25.82 Chronic total occlusion of coronary artery; I10 Essential (primary) hypertension; E11.9 Type 2 diabetes mellitus without complications; E78.00 Pure hypercholesterolemia, unspecified; Z95.1 Presence of aortocoronary bypass graft; Z79.82 Long term (current) use of aspirin; Z79.84 Long term (current) use of oral hypoglycemic drugs; Z79.899 Other long term (current) drug therapy; R07.9 Chest pain, unspecified
CPT/HCPCS: 36415; 80048; 85025; 85610; 85730; 93458; 99152; 99153; J7040; Q9967; C1769; C1894

== ENCOUNTER → 2020-11-11 13:29 | Outpatient (CLI) | payer MEDICARE, MEDICAID, SELFPAY ==
[2020-10-30 11:23] VITALS: BMI 35.1
[2020-11-11 15:10] LABS: AST(SGOT) 23 U/L (15-37); Alanine Aminotransfer ALT/SGPT 27 U/L (16-61); Albumin, Serum 3.5 g/dL (3.2-5.0); Alkaline Phosphatase 45 U/L (45-117); Bilirubin, Direct 0.12 mg/dL (0.00-0.30); Cholesterol 160 mg/dL (200); Globulin 3.5 g/dL (2.2-4.2); High Density Lipoprotein 52 mg/dL; Triglycerides 94 mg/dL; Very Low Density Lipoprotein 19 mg/dL (5-40)
== END ==
PROVIDERS: PCP Internal Medicine; Referring Provider Internal Medicine Cardiovascular Disease; Visit Provider Internal Medicine Cardiovascular Disease
DX: E78.00 Pure hypercholesterolemia, unspecified (principal)
CPT/HCPCS: 36415; 80061; 80076

== ENCOUNTER → 2020-11-15 12:46 | Outpatient (CLI) | payer MEDICARE, MEDICAID, SELFPAY ==
[2020-10-30 11:23] VITALS: BMI 35.1
--- NOTE | 2020-11-15 12:48 | CDU_ITS ---
Reason For Study: Carotid Stenosis Rt. Velocities/BP Lt. Velocities/BP Prox CCA 105/20 cm/sec. Prox CCA 89/27 cm/sec. Mid CCA 80/24 cm/sec. Mid CCA 80/26 cm/sec. Dist CCA 92/29 cm/sec. Dist CCA 93/19 cm/sec. Prox ICA 105/37 cm/sec. Prox ICA 173/58 cm/sec. Mid ICA 58/19 cm/sec. Mid ICA 158/29 cm/sec. Dist ICA 77/23 cm/sec. Dist ICA 98/36 cm/sec. Rt. ICA/CCA = 1.3. Lt. ICA/CCA = 2.2. Prox ECA 115/15 cm/sec. Prox ECA 134/21 cm/sec. Rt. Vert. 44/10 cm/sec. Lt. Vert. 54/17 cm/sec. Right Extracranial There is heterogeneous, smooth atherosclerotic plaque noted in the right common carotid artery. There is heterogeneous, irregular atherosclerotic plaque noted in the right internal carotid artery. There is intimal thickening but no significant atherosclerotic plaque noted in the right external carotid artery. Antegrade flow is noted in the right vertebral artery. Left Extracranial There is heterogeneous, smooth atherosclerotic plaque noted in the left common carotid artery. There is heterogeneous, smooth atherosclerotic plaque noted in the left internal carotid artery. There is intimal thickening but no significant atherosclerotic plaque noted in the left external carotid artery. Antegrade flow is noted in the left vertebral artery. Procedure Carotid Duplex [id number]. Exam performed in department. Interpretation Summary Mild (<50%) stenosis right extracranial internal carotid. Moderate (50-69%) stenosis left extracranial internal carotid. Flow within the vertebral arteries is antegrade bilaterally. Ordering Physician: Chirag Barakat Referring Physician: Grant Krause Performed By: Christie Gan, RDCS, RVT
== END ==
PROVIDERS: PCP Internal Medicine; Referring Provider Internal Medicine Cardiovascular Disease; Visit Provider Internal Medicine Cardiovascular Disease
DX: I65.23 Occlusion and stenosis of bilateral carotid arteries (principal); E78.00 Pure hypercholesterolemia, unspecified; I10 Essential (primary) hypertension; I25.10 Atherosclerotic heart disease of native coronary artery without angina pectoris; Z95.5 Presence of coronary angioplasty implant and graft
CPT/HCPCS: 93880

== ENCOUNTER → 2021-05-08 14:40 | Outpatient (CLI) | payer MEDICARE, MEDICAID, SELFPAY ==
[2021-05-08 14:06] VITALS: BMI 35.1
[2021-05-08 16:35] LABS: AST(SGOT) 19 U/L (15-37); Alanine Aminotransfer ALT/SGPT 23 U/L (16-61); Albumin, Serum 3.5 g/dL (3.2-5.0); Alkaline Phosphatase 36 U/L (45-117); Bilirubin, Direct 0.15 mg/dL (0.00-0.30); Cholesterol 168 mg/dL (200); Globulin 3.3 g/dL (2.2-4.2); High Density Lipoprotein 50 mg/dL; Protein, Total 6.8 g/dL (6.4-8.2); Triglycerides 93 mg/dL; Very Low Density Lipoprotein 19 mg/dL (5-40)
== END ==
PROVIDERS: PCP Internal Medicine; Referring Provider Internal Medicine Cardiovascular Disease; Visit Provider Internal Medicine Cardiovascular Disease
DX: E78.00 Pure hypercholesterolemia, unspecified (principal)
CPT/HCPCS: 36415; 80061; 80076

== ENCOUNTER 2022-01-29 14:39 | Emergency (ER) | payer MEDICARE, MEDICAID, SELFPAY ==
[2022-01-29 14:41] VITALS: BP 143/73; PULSE 76; RESP 15; TEMP 36.7; O2SAT 97; BMI 31.1
--- NOTE | 2022-01-29 16:03 | EX.ED.GENINJ ---
HPI <ROBY Ly - Last Filed: 01/29/22 16:51> History of Present Illness Chief Complaint: Other, Pain/Inj Narrative Narrative: Patient presents of twitching of his jaw that has been ongoing for years. It was intermittent but over the last few months became a daily occurrence. Its not painful but he wants to be evaluated because he is curious about it. He states he will see his PCP but did not think he could get an urgent appointment. He denies tremor in his arms or legs. Denies balance issues or gait difficulty. He denies stiffness or slowness. He has no family history of tremor. He denies any new medications. He denies any trouble swallowing or breathing. No dysphonia or hoarseness. No headache or focal motor or sensory changes. PFS <ROBY Ly - Last Filed: 01/29/22 16:51> [facility] Medical History Atherosclerotic heart disease of [place] coronary artery without angina pectoris Chest pain Essential hypertension Hyperlipidemia Hypertension [place]BAN on CPAP Presence of stent in coronary artery (~04/05/12) Pure hypercholesterolemia Type II diabetes mellitus Home Medications aspirin 81 mg PO DAILY@0800 07/20/15 [History Last Taken 04/23/20] nitroglycerin 0.4 mg SUBLINGUAL Q5M PRN #25 tab 07/23/15 [Rx Last Taken 01/03/19] tamsulosin 0.4 mg PO DAILY 09/08/16 [History Last Taken 01/03/19] fenofibrate 160 mg PO DAILY 09/10/16 [History Last Taken 01/03/19] sildenafil 50 mg tablet 50 mg PO DAILY PRN 03/25/20 [History Last Taken Unknown] albuterol sulfate 90 mcg/actuation aerosol inhaler 2 puff INHALATION Q6H PRN 10/30/20 [History Last Taken Unknown] lisinopril 10 mg tablet 10 mg PO DAILY 10/30/20 [History Last Taken Unknown] ranolazine 500 mg tablet,extended release,12 hr 500 mg PO BID #180 tab 01/24/21 [Rx Last Taken Unknown] metoprolol tartrate 25 mg tablet 25 mg PO BID tab 05/08/21 [History Last Taken Unknown] empagliflozin 25 mg tablet 25 mg PO DAILY 12/04/21 [History Last Taken Unknown] metformin 500 mg tablet 1,000 mg PO BID tab 12/04/21 [History Last Taken Unknown] rosuvastatin 40 mg tablet 40 mg PO DAILY 12/04/21 [History Last Taken Unknown] Allergy/AdvReac Type Severity Reaction Status Date / Time No Known Allergies Allergy Verified 01/29/22 14:44 Family History Sister Hypertension Surgical History History of left heart catheterization (LHC) (~04/23/20) History of umbilical hernia repair Presence of coronary angioplasty implant and graft (~04/05/12) Social History Smoking Status: Never smoker alcohol intake: current alcohol intake frequency: a few times a week Alcohol type: beer substance use type: marijuana caffeine: Yes ROS <ROBY Ly - Last Filed: 01/29/22 16:51> ROS ED ROS Narrative Constitutional: Negative for fever, chills, malaise. Eyes: Negative for visual change. ENT: Negative for sore throat, ear pain, rhinorrhea. CVS: Negative for palpitations, chest pain, syncope. Respiratory: Negative for shortness of breath, cough, orthopnea. GI: Negative for abdominal pain, nausea, vomiting, diarrhea, constipation, melena, hematochezia. : Negative for dysuria, hematuria or frequency. Neuro: Negative for headache, motor/sensory dysfunction. Skin: Negative for rash, abscess, or wound. Musc: Negative for joint pain, swelling, trauma. Heme: Negative for easy bruising, bleeding, lymphadenopathy. EXAM <ROBY Ly - Last Filed: 01/29/22 16:51> Physical Exam Narrative Exam Narrative: CONST: Patient sitting in no acute distress. EYES: Normal inspection. PERRLA, EOMI. ENT: Normal inspection, moist mucous membranes. NECK: Normal inspection. No lymphadenopathy or masses, trachea midline. RESP: No respiratory distress, CTAB. CVS: Regular rate and rhythm, no murmur, no gallop. SKIN: Color normal, no rash, warm, dry, intact. EXTREMITIES: Normal appearance, no pedal edema. NEURO: Oriented x4. Slight tremor of lower jaw. No fasciculations noted. No tremor of the upper or lower extremities, no cogwheeling or rigidity, normal [id number] bilaterally. Normal gait with no bradykinesia, rises from chair easily. PSYCH: Normal affect. Const Vital Signs: 01/29/22 14:41 01/29/22 15:25 Temperature 98.1 F Temperature Source Temporal Pulse Rate 76 Respiratory Rate 15 Respiratory Effort Normal Non-Labored Respiratory Pattern Irregular Blood Pressure 143/73 H Blood Pressure Mean 96 Pulse Ox 97 Oxygen Delivery Method Room Air <Dr. Hugo Gauthier DO - Last Filed: 01/29/22 17:09> Physical Exam Const Vital Signs: 01/29/22 14:41 01/29/22 15:25 Temperature 98.1 F Temperature Source Temporal Pulse Rate 76 Respiratory Rate 15 Respiratory Effort Normal Non-Labored Respiratory Pattern Irregular Blood Pressure 143/73 H Blood Pressure Mean 96 Pulse Ox 97 Oxygen Delivery Method Room Air MDM <ROBY Ly - Last Filed: 01/29/22 16:51> [facility] Narrative Medical decision making narrative: Patient presents with tremor of his jaw that has been ongoing for months. He appears well nontoxic. Vital signs within normal limits. He does have a slight tremor of his jaw. No tremor of his upper or lower extremities. He has no symptoms of Parkinson's such as bradykinesia or rigidity or gait difficulty. We discussed this is likely essential tremor. There is no indication for emergent work-up and he needs to see his primary care doctor for further evaluation. Patient agreeable with this plan and discharged home in stable condition. Diagnosis 1. Facial tremor <Dr. Hugo Gauthier DO - Last Filed: 01/29/22 17:09> [facility] Narrative Medical decision making narrative: I have personally performed a face to face assessment of the patient and have reviewed the ZAK Note. I performed a substantive portion of the visit including all aspects of the following. My rick findings include: History: Patient presents with twitching of his lower jaw that has been getting worse over the past couple days. Patient denies any trauma or injury. Patient states he will schedule appoint with his primary care physician for this however he just came to the emergency department to make sure that this was nothing life-threatening. Patient denies any shortness of breath. Patient denies any difficulty swallowing or difficulty talking. Patient denies any fevers or chills. Exam: Vital signs are stable. Patient is afebrile. Patient is in no acute distress. Cranial nerves II through XII are intact. There are no focal motor or sensory deficits noted. There is a mild tremor noted of the lower jaw. Patient is able to talk in complete sentences without difficulty. Patient is able to swallow without difficulty. Heart was regular rate and rhythm. Lungs are clear and equal bilaterally. Medical Decison Making: Patient was advised that this appears to be an essential tremor. Patient was instructed to follow-up with his primary care physician in 5 to 7 days. Patient understood and was agreeable with the plan. All questions were answered. Discharge Plan Triage Chief Complaint: Other, Pain/Inj ED Provider: Wendy Lopez Dx/Rx/DC Orders Clinical Impression: Tremor Instructions: Essential Tremor (ET) Prescriptions: No Action sildenafil [Viagra] 50 mg tablet 50 mg PO DAILY PRN (Reason: sexual activity) RF: 0 lisinopril 10 mg tablet 10 mg PO DAILY RF: 0 albuterol sulfate [ProAir HFA] 90 mcg/actuation HFA aerosol inhaler 2 puff INHALATION Q6H PRNRF: 0 rosuvastatin 40 mg tablet 40 mg PO DAILY RF: 0 Jardiance 25 mg tablet 25 mg PO DAILY RF: 0 aspirin 81 MG tablet,chewable 81 mg PO DAILY@0800 RF: 0 nitroglycerin 0.4 MG tablet 0.4 mg SUBLINGUAL Q5M PRN (Reason: Chest Pain) Qty: 25 RF: 0 tamsulosin 0.4 MG capsule 0.4 mg PO DAILY RF: 0 fenofibrate 160 MG tablet 160 mg PO DAILY RF: 0 ranolazine [Ranexa] 500 mg tablet extended release 12 hr 500 mg PO BID Qty: 180 RF: 3 metoprolol tartrate 25 mg tablet 25 mg PO BID RF: 0 metformin 500 mg tablet 1,000 mg PO BID RF: 0 Primary Care Provider: Grant Krause Referrals: Grant Krause MD [Primary Care Provider] - Activity Restrictions/Additional Instructions: Please see your doctor for further evaluation. This may be essential tremor. They can do further evaluation and medication if indicated Disposition Disposition: Home, Self Care Discharge Date/Time: 01/29/22 16:59
== END 2022-01-29 16:59 | disposition home or self-care (01) ==
PROVIDERS: Emergency Provider Physician Assistant; PCP Internal Medicine; Visit Provider Physician Assistant
DX: R25.1 Tremor, unspecified (principal); E11.9 Type 2 diabetes mellitus without complications; I25.10 Atherosclerotic heart disease of native coronary artery without angina pectoris; E78.5 Hyperlipidemia, unspecified; E78.00 Pure hypercholesterolemia, unspecified; I10 Essential (primary) hypertension; G47.33 Obstructive sleep apnea (adult) (pediatric); Z95.1 Presence of aortocoronary bypass graft; Z79.82 Long term (current) use of aspirin; Z79.899 Other long term (current) drug therapy; Z79.84 Long term (current) use of oral hypoglycemic drugs
CPT/HCPCS: 99282

== ENCOUNTER → 2022-04-14 | Outpatient (CLI) | payer MEDICARE, MEDICAID, SELFPAY ==
--- NOTE | 2022-04-14 07:21 | ECHOD_ITS ---
Reason For Study: CAD/ASHD Procedure This was a 2D Doppler, Color Flow transthoracic echocardiogram. The exam was of adequate technical quality. Exam performed in department. Left Ventricle Normal LV size. Left ventricular systolic function is normal. The estimated ejection fraction is 65 %. Diastolic function is indeterminate. No regional wall motion abnormalities noted. Right Ventricle Normal RV size. Normal systolic function. Atria The left atrium is mildly enlarged. Normal right atrium. No doppler evidence for ASD. Mitral Valve There is no mitral annular calcification. Normal mitral valve. Trivial mitral valve insufficiency. Tricuspid Valve Normal tricuspid valve. Trivial tricuspid valve insufficiency. Unable to estimate RV systolic pressure due to insufficient tricuspid regurgitant envelope. Aortic Valve Trisinus/trileaflet aortic valve. Mild focal aortic valve calcification. Pulmonic Valve The pulmonic valve is not well visualized. Great Vessels The aortic root is not well visualized. Pericardium/Pleural No pericardial effusion. MMode/2D Measurements & Calculations RVDd: 3.2 cm LAV(MOD-sp4): 61.7 ml LVAd ap4: 24.8 cm2 LVLd ap4: 7.8 cm EDV(MOD-sp4): 72.5 ml EDV(sp4-el): 66.6 ml LVAs ap4: 11.8 cm2 LVLs ap4: 6.0 cm ESV(MOD-sp4): 20.9 ml ESV(sp4-el): 19.6 ml EF(MOD-sp4): 71.2 % EF(sp4-el): 70.5 % SV(MOD-sp4): 51.7 ml SV(sp4-el): 47.0 ml LA A4 area: 21.4 cm2 LA dimension(2D): 4.3 cm RA A4 area: 18.1 cm2 Time Measurements MV dec time: 0.15 sec Doppler Measurements & Calculations MV E max keanu: 91.1 cm/sec Lat Peak E' Keanu: 12.8 cm/sec Med Peak E' Keanu: 7.7 cm/sec MV A max keanu: 61.2 cm/sec E/E' lat: 7.1 E/E' med: 11.8 MV E/A: 1.5 MV dec slope: 643.7 cm/sec2 Ao V2 max: 195.7 cm/sec LV V1 max: 125.2 cm/sec Ao max P.4 mmHg LV V1 max P.3 mmHg Ao V2 mean: 122.6 cm/sec LV V1 mean P.2 mmHg Ao mean P.3 mmHg LV V1 mean: 82.6 cm/sec Ao V2 VTI: 39.1 cm LV V1 VTI: 26.6 cm PA V2 max: 104.4 cm/sec PA V2 mean: 80.0 cm/sec ECHO/Echo Complete Interpretation Summary Left ventricular systolic function is normal. The estimated ejection fraction is 65 %. The left atrium is mildly enlarged. Trivial mitral valve insufficiency. Trivial tricuspid valve insufficiency. Mild focal aortic valve calcification. Unable to estimate RV systolic pressure due to insufficient tricuspid regurgita nt envelope. Diastolic function is indeterminate. Ordering Physician: Chirag Barakat Referring Physician: Chirag Barakat Performed By: Susy Man RCS
[2022-04-14 07:53] LABS: AST(SGOT) 19 U/L (15-37); Alanine Aminotransfer ALT/SGPT 26 U/L (16-61); Albumin, Serum 3.6 g/dL (3.2-5.0); Alkaline Phosphatase 41 U/L (45-117); Bilirubin, Direct 0.16 mg/dL (0.00-0.30); Cholesterol 162 mg/dL (200); Globulin 3.1 g/dL (2.2-4.2); High Density Lipoprotein 55 mg/dL; Protein, Total 6.7 g/dL (6.4-8.2); Triglycerides 74 mg/dL; Very Low Density Lipoprotein 15 mg/dL (5-40)
--- NOTE | 2022-04-14 12:07 | STRESSREP_ITS ---
Stress Test Report Date: 04-14-2022 Procedure: Exercise tolerance test/imaging study Indications: Chest pain/left shoulder pain; CAD; PCI Consent: Per the patient Procedure: The patient exercised on a Vinicio protocol for 5 minutes completing Stage I and 2 minutes of Stage II achieving a peak heart rate of 150 bpm (99% predicted maximal heart rate) with a peak blood pressure 186/78 mmHg and a peak MET capacity of 7 METs. The baseline ECG demonstrated normal sinus rhythm. The peak exercise ECG demonstrated somatic/motion artifact with no obvious ECG changes. There were occasional PVCs and brief ventricular trigeminy during exercise and occasional PVCs during recovery. The functional capacity was considered good. There was no complaint of chest discomfort during exercise or recovery. The examination was discontinued secondary to dyspnea and leg fatigue. Impression: 1. Technically adequate (percent predicted maximal heart rate greater than 85%) exercise tolerance test 2. Peak exercise ECG with somatic/motion artifact with no obvious ECG changes 3. There were occasional PVCs and brief ventricular trigeminy during exercise and occasional PVCs during recovery 4. Nuclear images pending Myocardial perfusion imaging study: Technique: The patient was injected with 14.1 mCi of technetium 99m Cardiolite and subsequently rest SPECT Cardiolite nuclear imaging was obtained in the horizontal long, vertical long, and short axis views. The patient exercised on a Vinicio protocol for 5 minutes completing Stage I and 2 minutes of Stage II a chieving a peak heart rate of 150 bpm (99% predicted maximal heart rate) with a peak blood pressure 186/78 mmHg and a peak MET capacity of 7 METs. The patient was injected with 43.9 mCi of technetium 99m Cardiolite and subsequently stress SPECT Cardiolite nuclear imaging was obtained in the horizontal long, vertical long, and short axis views. A gated Cardiolite study at peak stress was obtained. Interpretation: Rest and stress SPECT Cardiolite nuclear imaging status post realignment, normalization, and attenuation correction, demonstrates the appearance of body motion during image acquisition and the appearance following stress of an area of diminished myocardial perfusion/tracer uptake in the mid inferior segments. There is end systolic thickening and brightening. The gated Cardiolite study demonstrates myocardial thickening and inward wall motion. The reported LVEF is 85%. Impression: 1. Rest and stress SPECT Cardiolite nuclear imaging demonstrate the appearance of body motion during image acquisition and the appearance following stress of an area of diminished myocardial perfusion/tracer uptake in the mid inferior segments concerning for an area of stress-induced myocardial ischemia, however, an element of body motion/shifting soft tissue attenuation/artifact cannot necessarily be excluded. 2. The gated Cardiolite study reports an LVEF of 85%. This note was generated with [employer] software. It may contain incorrect words, spelling, and punctuation that were not noted in checking the note before signing.
== END | disposition home or self-care (01) ==
LOC: CVS 07:05
PROVIDERS: PCP Internal Medicine; Referring Provider Internal Medicine Cardiovascular Disease; Visit Provider Internal Medicine Cardiovascular Disease
DX: I25.10 Atherosclerotic heart disease of native coronary artery without angina pectoris (principal); Z95.5 Presence of coronary angioplasty implant and graft; E78.00 Pure hypercholesterolemia, unspecified
CPT/HCPCS: 36415; 78452; 80061; 80076; 93017; 93306; A9500; A4216

== ENCOUNTER 2022-04-25 22:42 | Emergency (ER) | payer MEDICARE, MEDICAID, SELFPAY ==
[2022-04-25 22:42] VITALS: BP 158/88; PULSE 97; RESP 16; TEMP 37.2; O2SAT 99; BMI 29.0
--- NOTE | 2022-04-25 22:51 | EX.ED.DYSGE1 ---
HPI History of Present Illness Chief Complaint: Cold Sx Informant: patient Narrative Narrative: Patient presents sore throat since yesterday. No fevers cough vomiting diarrhea. No loss of taste or smell. No COVID infections in the past. He states he had vaccination with the booster. However states he is here to rule out COVID. Denies nausea or vomiting. History of hypertension diabetes hyperlipidemia. History of coronary disease. Denies any dyspnea. [facility] Medical History Atherosclerotic heart disease of [place] coronary artery without angina pectoris Chest pain Essential hypertension Hyperlipidemia Hypertension [place] on CPAP Presence of stent in coronary artery (~04/05/12) Pure hypercholesterolemia Type II diabetes mellitus Home Medications aspirin 81 mg chewable tablet 81 mg PO DAILY@0800 07/20/15 [History Last Taken 04/23/20] nitroglycerin 0.4 mg sublingual tablet 0.4 mg sublingual Q5M PRN Chest Pain #25 tabs 07/23/15 [Rx Last Taken 01/03/19] tamsulosin 0.4 mg capsule 0.4 mg PO DAILY 09/08/16 [History Last Taken 01/03/19] fenofibrate 160 mg tablet 160 mg PO DAILY 09/10/16 [History Last Taken 01/03/19] sildenafil 50 mg tablet (Viagra) 50 mg PO DAILY PRN sexual activity 03/25/20 [History Last Taken Unknown] albuterol sulfate 90 mcg/actuation aerosol inhaler (ProAir HFA) 2 puff inhalation Q6H PRN 10/30/20 [History Last Taken Unknown] lisinopril 10 mg tablet 10 mg PO DAILY 10/30/20 [History Last Taken Unknown] metoprolol tartrate 25 mg tablet 25 mg PO BID 05/08/21 [History Last Taken Unknown] empagliflozin 25 mg tablet (Jardiance) 25 mg PO DAILY 12/04/21 [History Last Taken Unknown] metformin 500 mg tablet 1,000 mg PO BID 12/04/21 [History Last Taken Unknown] rosuvastatin 40 mg tablet 40 mg PO DAILY 12/04/21 [History Last Taken Unknown] ranolazine 500 mg tablet,extended release,12 hr (Ranexa) 500 mg PO BID #180 tabs 04/07/22 [Rx Last Taken Unknown] nirmatrelvir 300 mg (150 mg x2)-ritonavir 100 mg tablet,dose pack(EUA) (Paxlovid) See Rx Instructions PO .COMPLEX #30 tabs 04/25/22 [Rx Last Taken Unknown] Allergy/AdvReac Type Severity Reaction Status Date / Time No Known Allergies Allergy Verified 04/25/22 22:44 Family History Sister Hypertension Surgical History History of left heart catheterization (LHC) (~04/23/20) History of umbilical hernia repair Presence of coronary angioplasty implant and graft (~04/05/12) Social History Smoking Status: Never smoker alcohol intake: current alcohol intake frequency: a few times a week Alcohol type: beer substance use type: marijuana caffeine: Yes ROS ROS ED Constitutional Constitutional ED: Denies chills, fever(s) or sweats Eyes Eyes: Denies change in vision ENT ENT ED: Reports sore throat; Denies dysphagia Cardiovascular Cardiovascular: Denies chest pain, leg edema, palpitations or racing heartbeat Respiratory/Chest Respiratory/Chest: Denies cough, dyspnea or dyspnea on exertion Gastrointestinal Gastrointestinal: Denies abdominal pain, diarrhea, nausea or vomiting Genitourinary Genitourinary ED: Denies dysuria, hematuria or urinary frequency Musculoskeletal Musculoskeletal: Denies back pain, extremity pain or neck pain Integumentary Denies rash or wounds Neurologic Neurologic: Denies headache(s), paresthesias or weakness EXAM Physical Exam Const Vital Signs: 04/25/22 22:42 04/25/22 22:59 Temperature 98.9 F Temperature Source Temporal Pulse Rate 97 Respiratory Rate 16 Respiratory Effort Normal Respiratory Pattern Normal Blood Pressure 158/88 H Blood Pressure Mean 111 Pulse Ox 99 Oxygen Delivery Method Room Air Positive well nourished and well developed General Appearance ED: well developed and NAD HEENT Reports moist mucous membranes HEENT Narrative: No posterior pharyngeal erythema. No exudates. Airway patent. No trismus. normocephalic and atraumatic Eyes PERRL, EOMs intact bilaterally and conjunctivae normal General Eye ED: Yes normal appearance of both eyes Neck no lymphadenopathy and supple General: Negative for tenderness Chest Wall Chest: Negative for tenderness Resp normal respiratory effort and normal air movement Effort and Inspection: symmetric chest movement; Negative for respiratory distress Cardio regular rate, regular rhythm and no murmurs Peripheral Pulses: pulses 2+ throughout GI normal to inspection, nondistended, normoactive bowel sounds and non-tender Palpation: Negative for guarding or rebound tenderness present Back/Spine no CVA tenderness and no thoracic nor lumbar tenderness Extremity normal to inspection General Extremety ED: Negative for edema or tenderness General Extremity: Negative for edema Neuro oriented x3 and no sensory deficits noted Sensorium / Orientation: awake and alert Skin no rashes or lesions noted and no wounds MDM MDM MDM Narrative Medical decision making narrative: Patient vital signs stable. Isolated pharyngitis since yesterday normal throat exam. COVID testing obtained and returned positive. Pulse ox stable I discussed findings with patient. Labs 3 days as an outpatient normal creatinine. He does wish to start treatment. Paxlovid ordered for meds to bed. Discussed for him that he may hold his statin prevent any myalgias. We will hold his Ranexa and his Flomax. He will monitor his pulse ox. Return precautions discussed. All questions were answered. Discharge Plan Triage Chief Complaint: Cold Sx ED Provider: Milton Garcia Dx/Rx/DC Orders Clinical Impression: COVID-19 virus infection, Sore throat, History of coronary artery disease Prescriptions: New Paxlovid (EUA) 300 mg (150 mg x 2)-100 mg tablets,dose pack See Rx Instructions .ROUTE .COMPLEX Qty: 30 0RF Rx Instructions: take TWO 150 mg tablets of nirmatrelvir with ONE 100 mg tablet of ritonavir twice daily for 5 days No Action sildenafil [Viagra] 50 mg tablet 50 mg PO DAILY PRN (Reason: sexual activity) lisinopril 10 mg tablet 10 mg PO DAILY albuterol sulfate [ProAir HFA] 90 mcg/actuation HFA aerosol inhaler 2 puff INHALATION Q6H PRN rosuvastatin 40 mg tablet 40 mg PO DAILY Jardiance 25 mg tablet 25 mg PO DAILY aspirin 81 MG tablet,chewable 81 mg PO DAILY@0800 Label Comments: antiplatelet nitroglycerin 0.4 MG tablet 0.4 mg SUBLINGUAL Q5M PRN (Reason: Chest Pain) Qty: 25 0RF Label Comments: CHEST PAIN tamsulosin 0.4 MG capsule 0.4 mg PO DAILY fenofibrate 160 MG tablet 160 mg PO DAILY metoprolol tartrate 25 mg tablet 25 mg PO BID metformin 500 mg tablet 1,000 mg PO BID ranolazine [Ranexa] 500 mg tablet extended release 12 hr 500 mg PO BID Qty: 180 3RF Primary Care Provider: Grant Krause Referrals: Grant Krause MD [Primary Care Provider] - 5-7 Days Activity Restrictions/Additional Instructions: COVID-positive. Take medication as provided. Hold your Ranexa and your Flomax while taking this medication. You may want to hold your rosuvastatin to prevent possible increasing myalgias for up to 3 days.. Monitor your pulse oximeter. Return if any dyspnea with pulse ox less than 88%. Disposition Disposition: Home, Self Care
[2022-04-26 00:21] VITALS: PULSE 94; RESP 17; O2SAT 99
== END 2022-04-26 00:22 | disposition home or self-care (01) ==
PROVIDERS: Emergency Provider Emergency Medicine; PCP Internal Medicine; Visit Provider Emergency Medicine
DX: U07.1 COVID-19 (principal); E11.9 Type 2 diabetes mellitus without complications; I10 Essential (primary) hypertension; E78.5 Hyperlipidemia, unspecified; I25.10 Atherosclerotic heart disease of native coronary artery without angina pectoris; G47.33 Obstructive sleep apnea (adult) (pediatric); Z95.1 Presence of aortocoronary bypass graft; Z79.82 Long term (current) use of aspirin; Z79.899 Other long term (current) drug therapy
CPT/HCPCS: 87811; 99282

== ENCOUNTER → 2022-05-11 | Outpatient (CLI) | payer MEDICARE, MEDICAID, SELFPAY | END | disposition home or self-care (01) | LOC: LAB 15:15 | PROVIDERS: PCP Internal Medicine; Visit Provider Internal Medicine | DX: G24.4 Idiopathic orofacial dystonia (principal) ==

== ENCOUNTER 2022-05-26 07:28 | Day surgery (SDC) | payer MEDICARE, MEDICAID, SELFPAY ==
--- NOTE | 2022-04-22 10:11 | RAD_ITS ---
EXAM: XR CHEST, 2 VIEWS CLINICAL INDICATION: Heart cath TECHNIQUE: Frontal and lateral views of the chest. This report was created using [employer] report generation technology. COMPARISON: 04/18/2020 FINDINGS: LUNGS AND PLEURAL SPACES: There is minimal scarring at the lung bases. There has been no change. No pneumothorax. No effusion. HEART: Unremarkable. Cardiac silhouette not enlarged. MEDIASTINUM: Central airways and mediastinal contour are unremarkable. BONES/JOINTS: Unremarkable. SOFT TISSUES: Unremarkable. RAD/Chest PA and Lateral IMPRESSION: No acute pulmonary abnormality. Electronically Signed: Dario White MD at 3:03 EDT ,
[2022-04-22 11:17] LABS: Absolute Lymphocyte Count 1.31 X10^3/uL (0.83-4.51); Absolute Neutrophil Count 4.8 X10^3/uL (2.0-7.7); Basophil# 0.05 X10^3/uL; Basophil% 0.7 % (0-1); Eosinophil# 0.23 X10^3/uL; Eosinophils% 3.2 % (0-5); Hematocrit 46.3 % (40-54); Lymphocyte # 1.31 X10^3/ul (0.83-4.51); Lymphocyte % 18.4 % (19-41); Mean Corp Hgb Conc 32.4 g/dL (32-36); Mean Corpuscular Hgb 31.9 pg (27.0-32.0); Mean Corpuscular Volume 98.5 fL (80-94); Mean Platelet Vol. 10.6 fl (6.2-12.0); Monocyte% 9.8 % (0-10); NRBC Flagged by Analyzer 0 % (0-5); Neutrophil # 4.83 X10^3/uL (2.7-7.7); Neutrophil % 67.8 % (47-70); Platelet Count 276 K/mm3 (150-450); RBC Distribution Width CV 12.8 % (11.6-14.6); RBC Distribution Width SD 46.5 fl (35.1-43.9); White Blood Count 7.1 K/mm3 (4.4-11.0)
[2022-04-22 11:25] LABS: International Normalized Ratio 0.9; Prothrombin Time (Protime)PT. 12.2 SECONDS (11.7-14.9)
[2022-04-22 11:26] LABS: Partial Thromboplast Time 27.7 Seconds (24.1-36.2)
[2022-04-22 11:43] LABS: Anion Gap 4 (5-15); BUN 29 mg/dL (7-18); BUN/Creat Ratio 24.2 RATIO (10-20); Calcium,Total 9.6 mg/dL (8.5-10.1); Chloride 105 mmol/L (98-107); EST Glomerular Filtration Rate 64 mL/min (>60); Est Glom Filt Rate - Afr Amer 77 mL/min (>60); Glucose 141 mg/dL (74-106); Potassium 4.4 mmol/L (3.5-5.1); Sodium Level 138 mmol/L (136-145)
[2022-05-11 15:28] LABS: Hematocrit 45.9 % (40-54); Hemoglobin 15.2 g/dL (13.0-16.5); Mean Corp Hgb Conc 33.1 g/dL (32-36); Mean Corpuscular Hgb 31.7 pg (27.0-32.0); Mean Corpuscular Volume 95.6 fL (80-94); Mean Platelet Vol. 9.8 fl (6.2-12.0); Platelet Count 313 K/mm3 (150-450); RBC Distribution Width CV 12.3 % (11.6-14.6); RBC Distribution Width SD 43.6 fl (35.1-43.9); White Blood Count 9.8 K/mm3 (4.4-11.0)
[2022-05-11 15:44] LABS: International Normalized Ratio 0.9; Partial Thromboplast Time 24.9 Seconds (24.1-36.2); Prothrombin Time (Protime)PT. 12.3 SECONDS (11.7-14.9)
[2022-05-11 16:13] LABS: Anion Gap 5 (5-15); BUN 28 mg/dL (7-18); Calcium,Total 9.3 mg/dL (8.5-10.1); Chloride 106 mmol/L (98-107); Creatinine, Serum 1.27 mg/dL (0.70-1.30); EST Glomerular Filtration Rate 60 mL/min (>60); Est Glom Filt Rate - Afr Amer 72 mL/min (>60); Glucose 147 mg/dL (74-106); Potassium 4.4 mmol/L (3.5-5.1); Sodium Level 140 mmol/L (136-145)
--- NOTE | 2022-05-25 07:56 | PCM.HP.BLA ---
History and Physical Date of Admission: 05/26/22 [facility] [address] [place], [place] [address] OFFICE VISIT Date of Service:? 04/22/22 MR#: [id number] Acct: [id number] Name:XAVI HORTON Rep #: [id number] : 1955 ?Provider: ?MELISSA Gan Age/Sex:? 67/M Location: [facility] Status: Signed HPI HPI History of Present Illness Surgical H&P: Yes Details: This is a 67-year-old white male who presents today for outpatient cardiovascular follow-up and was previously been followed with our colleague, Mo Hatfield MD, for concerns of underlying CAD status post PCI superimposed upon a history of hyperlipidemia and hypertension. He had an echocardiogram completed on 04/14/2022 that showed ejection fraction of 65%, no regional wall motion abnormalities, and no hemodynamically significant valvular disease.? He had stress test completed on 04/14/2022 that showed P ECG with no obvious ECG changes and nuclear images demonstrating an area of diminished myocardial perfusion/tracer uptake in the mid inferior segments concerning for an area of stress-induced myocardial ischemia, however, an element of body motion/shifting soft tissue attenuation/artifact cannot necessarily be excluded.? On account of stress test results, symptoms, and CAD history, he will proceed with heart catheterization to assess further. He denies to us, arm, jaw, or neck discomfort.? He acknowledges occasional palpitations.? He states left lower extremity edema.? He acknowledges that his shortness of breath with activity is at baseline.? He denies shortness of breath at rest, orthopnea, cough, or PND.? He denies lightheadedness, dizziness, near-syncope, syncope, or fatigue. Intake Vital Signs ? 04/22/2209:00 04/22/2209:07 Height 5 ft 7 in 5 ft 7 in Weight: ? 200 lb 4 oz BMI ? 31.4 BP ? 122/78 H Blood Pressure Location ? Lt brachial Position ? Sitting Respiration ? 16 Pulse ? 60 Pulse Source ? Auscultation Intake Visit Reasons:?UPDATE H&P FOR CATH 05/05 Community Living Coach Required: No Accompanied by: Self Allergies No Known Allergies Allergy (Verified 04/22/22 09:07) Medications aspirin 81 mg chewable tablet 81 mg PO DAILY@0800 07/20/15 [History Confirmed 04/22/22] nitroglycerin 0.4 mg sublingual tablet 0.4 mg sublingual Q5M PRN Chest Pain #25 tabs 07/23/15 [Rx Confirmed 04/22/22] tamsulosin 0.4 mg capsule 0.4 mg PO DAILY 09/08/16 [History Confirmed 04/22/22] fenofibrate 160 mg tablet 160 mg PO DAILY 09/10/16 [History Confirmed 04/22/22] sildenafil 50 mg tablet (Viagra) 50 mg PO DAILY PRN sexual activity 03/25/20 [History Confirmed 04/22/22] albuterol sulfate 90 mcg/actuation aerosol inhaler (ProAir HFA) 2 puff inhalation Q6H PRN 10/30/20 [History Confirmed 04/22/22] lisinopril 10 mg tablet 10 mg PO DAILY 10/30/20 [History Confirmed 04/22/22] metoprolol tartrate 25 mg tablet 25 mg PO BID 05/08/21 [History Confirmed 04/22/22] empagliflozin 25 mg tablet (Jardiance) 25 mg PO DAILY 12/04/21 [History Confirmed 04/22/22] metformin 500 mg tablet 1,000 mg PO BID 12/04/21 [History Confirmed 04/22/22] rosuvastatin 40 mg tablet 40 mg PO DAILY 12/04/21 [History Confirmed 04/22/22] ranolazine 500 mg tablet,extended release,12 hr (Ranexa) 500 mg PO BID #180 tabs 04/07/22 [Rx Confirmed 04/22/22] PFSH Medical History? Atherosclerotic heart disease of [place] coronary artery without angina pectoris Chest pain Essential hypertension Hyperlipidemia Hypertension [place] on CPAP Presence of stent in coronary artery (~04/05/12) Pure hypercholesterolemia Type II diabetes mellitus Surgical History? History of left heart catheterization (LHC) (~04/23/20) History of umbilical hernia repair Presence of coronary angioplasty implant and graft (~04/05/12) Family History? Sister Hypertension Social History? Smoking Status:? Never smoker alcohol intake:? current alcohol intake frequency: a few times a week Alcohol type: beer substance use type:? marijuana caffeine:? Yes ROS Const Const: Negative for fatigue, weakness, body ache, fever(s), headache(s), chills, frequent falls, night sweats, daytime sleepiness, difficulty sleeping, excessive sweating, weight gain, weight loss, increased appetite, poor appetite, anorexia or other Eyes Eyes: Negative for blurry vision or double vision ENT ENT: Negative for headache(s), dizziness or balance problems Cardio Chest Pain: No Palpitations: Yes (occasional) feels like its: fast and skipping Edema: Left (LE) Muscle aches with walking: None Resp Respiratory: Positive for SOB with activity (baseline); Negative for SOB at rest, SOB orthopnea\SOB lying down, Cough, Coughing up blood/hemoptysis, chest congestion, pain on inspiration, snoring, stridor, wheezing, crackles, paroxysmal nocturnal dyspnea or other Musc Musc: Positive for joint pain (Lt knee); Negative for muscle aches/ myalgia, muscle weakness or balance problems Neuro Neuro: Negative for dizziness, lightheadedness, near syncope, syncope, orthostatic symptoms, frequent falls, headache(s), weakness, confusion, memory loss, restless legs, blurry vision, double vision, vertigo, seizures, lack of coordination or other Endo Endo: Negative for fatigue or excessive sweating Cardiology Exam Const Appearance: cooperative, healthy appearing, comfortable and no acute distress Nutritional Appearance: well nourished and obese Orientation: alert, awake and oriented x3 Head Head: normal to inspection Ears: hearing grossly normal bilaterally Nose: external nose normal Face and Sinus: face symmetric Mouth: oral mucosae normal Eyes General: appearance normal, both eyes and all related structures Eyelids: eyelids normal EOM: EOM intact bilaterally Neck Neck: normal visual inspection and no JVD Carotids: normal carotid upstroke Chest Chest inspection: normal inspection of the chest, symmetric chest movement and normal respiratory effort; Negative cough Auscultation: Bilateral: Diminished Lung Sounds Cardio Rate: regular rate Rhythm: regular rhythm Heart sounds: S1 normal and S2 normal; Negative rub, gallop or murmur GI GI: normal to inspection and obese Neuro General: patient alert, patient awake, patient oriented x3 and CN's II-XI intact bilaterally Skin Skin: no rashes or lesions noted Extremities Pulses: Normal: Right Posterior Tibial Pulse, Left Posterior Tibial Pulse, Right Radial Pulse and Left Radial Pulse Lower Extremity Edema: Trace: Bilateral Psych Psychological: normal affect Supplemental Info Supplemental Information Echocardiogram from 04/14/22 Interpretation Summary Left ventricular systolic function is normal. The estimated ejection fraction is 65 %. The left atrium is mildly enlarged. Trivial mitral valve insufficiency. Trivial tricuspid valve insufficiency. Mild focal aortic valve calcification. Unable to estimate RV systolic pressure due to insufficient tricuspid regurgitant envelope. Diastolic function is indeterminate. Transthoracic echocardiogram: 07-28-13: [facility] CONCLUSIONS: ? Exam indication: Chest Pain ? The left ventricle is normal in size. There is mild left ventricular hypertrophy. Left ventricular systolic function is normal. EF ? 57 ? 5% (20 biplane) Baseline left ventricular diastolic function is normal. ? The right ventricle is normal in size. Right ventricular systolic function is normal. ? There are no significant valvular abnormalities. ? No prior echocardiographic exam available for comparison. Stress Test Report Date: 04-14-2022 Procedure: Exercise tolerance test/imaging study Indications: Chest pain/left shoulder pain; CAD; PCI Consent: Per the patient Procedure: The patient exercised on a Vinicio protocol for 5 minutes completing Stage I and 2 minutes of Stage II achieving a peak heart rate of 150 bpm (99% predicted maximal heart rate) with a peak blood pressure 186/78 mmHg and a peak MET capacity of 7 METs. The baseline ECG demonstrated normal sinus rhythm.? The peak exercise ECG demonstrated somatic/motion artifact with no obvious ECG changes. There were occasional PVCs and brief ventricular trigeminy during exercise and occasional PVCs during recovery.? The functional capacity was considered good. There was no complaint of chest discomfort during exercise or recovery. The examination was discontinued secondary to dyspnea and leg fatigue. Impression: 1.? Technically adequate (percent predicted maximal heart rate greater than 85%) exercise tolerance test 2.? Peak exercise ECG with somatic/motion artifact with no obvious ECG changes 3.? There were occasional PVCs and brief ventricular trigeminy during exercise and occasional PVCs during recovery 4.? Nuclear images pending Myocardial perfusion imaging study: Technique: The patient was injected with 14.1 mCi of technetium 99m Cardiolite and subsequently rest SPECT Cardiolite nuclear imaging was obtained in the horizontal long, vertical long, and short axis views. The patient exercised on a Vinicio protocol for 5 minutes completing Stage I and 2 minutes of Stage II achieving a peak heart rate of 150 bpm (99% predicted maximal heart rate) with a peak blood pressure 186/78 mmHg and a peak MET capacity of 7 METs. The patient was injected with 43.9 mCi of technetium 99m Cardiolite and subsequently stress SPECT Cardiolite nuclear imaging was obtained in the horizontal long, vertical long, and short axis views.? A gated Cardiolite study at peak stress was obtained. Interpretation: Rest and stress SPECT Cardiolite nuclear imaging status post realignment, normalization, and attenuation correction, demonstrates the appearance of body motion during image acquisition and the appearance following stress of an area of diminished myocardial perfusion/tracer uptake in the mid inferior segments.? There is end systolic thickening and brightening.? The gated Cardiolite study demonstrates myocardial thickening and inward wall motion.? The reported LVEF is 85%. Impression: 1.? Rest and stress SPECT Cardiolite nuclear imaging demonstrate the appearance of body motion during image acquisition and the appearance following stress of an area of diminished myocardial perfusion/tracer uptake in the mid inferior segments concerning for an area of stress-induced myocardial ischemia, however, an element of body motion/shifting soft tissue attenuation/artifact cannot necessarily be excluded. 2.? The gated Cardiolite study reports an LVEF of 85%. Cardiac catheterization: 07-23-15 CONCLUSION: 1. Angiographically normal left main coronary artery, 2. Left anterior descending artery with proximal 50% stenosis and mild mid segment disease, 3. Left circumflex artery, which is codominant with previously placed stent which is patent and [id number] collaterals. 4. Right coronary artery which is totally occluded with [id number] collaterals. 5. Preserved ejection fraction. Cardiac cath: 04/23/2020 CONCLUSIONS Elevated Left Ventricular End Diastolic Pressure Segmented LV systolic dysfunction- Mild LVEF: by LV gram 55 % [place] Multivessel CAD Left to Right collateral flow RECOMMENDATIONS Risk factor modification Medical therapy CORONARY ANGIOGRAPHY DOMINANCE:? Right Dominant LEFT HEART ASSESSMENT Left Ventricular Ejection Fraction: by LV Gram 55 % Inferior Mid Hypokinesis Elevated Left Ventricular End Diastolic Pressure LVEDP: 15 mmHg LEFT MAIN: Angiographically normal LEFT ANTERIOR DESCENDING ARTERY: OSTIAL LAD: 10 - 25 % Stenosis MID LAD: Mild luminal irregularities CIRCUMFLEX ARTERY: Mild luminal irregularities MID CIRC: Previously placed stent has an instent smooth; eccentric; 25 % restenosis RIGHT CORONARY ARTERY: PROX RCA: is occluded COLLATERAL FLOW: Collateral flow from Left to Right AORTIC ROOT: Angiographically normal PCI: 04-05-12: [facility] IMPRESSION: 1. Severe CAD of the mid circumflex. Chronically occluded right coronary artery. 2. A Vision bare metal stent was deployed due to history of alcohol use, drug use, financial concerns. Carotid duplex ultrasound from 11/15/2020: Interpretation Summary Mild (<50%) stenosis right extracranial internal carotid. Moderate (50-69%) stenosis left extracranial internal carotid. Flow within the vertebral arteries is antegrade bilaterally. Labs: ?? ? LDL Cholesterol 92 mg/dL (0-130) ?? ? HDL Cholesterol 55 mg/dL (40-) ?? ? Triglycerides 74 mg/dL (-199) ?? ? VLDL Cholesterol 15 mg/dL (5-40) Diagnostics: ?? ? Electrocardiogram ? Echocardiogram ? Stress Test NM ? Stress Test ? Pulmonary: ?? ? No Data to Display Assessment and Plan Assessment and Plan (1) Atherosclerotic heart disease of [place] coronary artery without angina pectoris: ?Status:?Chronic ?Qualifiers: ?[place] vs. transplanted heart:?[place] heart? Qualified Code(s):?I25.10 - Atherosclerotic heart disease of [place] coronary artery without angina pectoris ?Plan: His EKG on 04/22/2022 showed sinus rhythm at a rate of 60 bpm, AL interval 140, QTc 478, and QRS 98.? On account of abnormal stress test and CAD history, he will proceed with heart catheterization.? Based on results, further recommendation will be made. (2) Presence of stent in coronary artery: ?Status:?Chronic ?Comment: PTCA/[facility] to Mid CX 04/05/12 ?Plan: He will continue current medical therapy with aspirin 81 mg p.o. daily, fenofibrate 160 mg p.o. daily, lisinopril 10 mg p.o. daily, metoprolol 25 mg p.o. twice daily, Ranexa 500 mg p.o. twice daily, and Crestor 40 mg p.o. daily. (3) Essential hypertension: ?Status:?Chronic ?Plan: Patient's blood pressure is well-controlled.? We will continue to monitor. We will not make any medication regimen changes. (4) Pure hypercholesterolemia: ?Status:?Chronic ?Plan: Laboratory Tests ? 04/14/22 ? 07:11 Triglycerides ?74 Cholesterol ?162 LDL Cholesterol ?92 HDL Cholesterol ?55 He will continue Crestor 40 mg p.o. daily and repeat laboratory testing in approximately 6 months. ? ? ? Orders: Orders 12 Lead EKG performed by [facility] Today I25.10 - Atherosclerotic heart disease of [place] coronary artery without angina pectoris, Z95.5 - Presence of coronary angioplasty implant and graft ? Plan Details Follow Up: ? ? Keep as is (PFM) COVID (Procedure Consent) Procedure Criteria Procedure Criteria: Yes Elective The surgeon/proceduralist and patient have discussed in detail the risk of exposure to and/or potential harm posed by the COVID-19 virus with having a surgery/procedure at this time versus the risk of? delaying the surgery/procedure. It is not possible to know either the risk of delaying the surgery or procedure or chance of getting an infection with perfect accuracy, but a joint decision was made between the patient and the surgeon/proceduralist ?to proceed at this time with the scheduled surgery/procedure as indicated on the consent form. Coding Level of Care Code Off vis,est,level 3 Diagnoses Atherosclerotic heart disease of [place] coronary artery without angina pectoris? I25.10 ? ? ? [place] vs. transplanted heart: [place] heart Presence of stent in coronary artery? Z95.5 Essential hypertension? I10 Pure hypercholesterolemia? E78.00 Coding Level of Care Code Off vis,est,level 3 Diagnoses Atherosclerotic heart disease of [place] coronary artery without angina pectoris? I25.10 ? ? ? [place] vs. transplanted heart: [place] heart Presence of stent in coronary artery? Z95.5 Essential hypertension? I10 Pure hypercholesterolemia? E78.00 04/22/22 0956 <Electronically signed by Nagi CAMC> Date Nagi TORRES Cosigner Signature: Date (if applicable) CC:? Dr. Grant Krause MD ~ Assessment & Plan Addt'l Comments Addendum: I have examined the patient the following changes are noted: The patient underwent transthoracic echocardiogram on 04-14-2022. The results are noted below. Interpretation Summary Left ventricular systolic function is normal. The estimated ejection fraction is 65 %. The left atrium is mildly enlarged. Trivial mitral valve insufficiency. Trivial tricuspid valve insufficiency. Mild focal aortic valve calcification. Unable to estimate RV systolic pressure due to insufficient tricuspid regurgitant envelope. Diastolic function is indeterminate. The patient underwent pharmacologic stress nuclear imaging study on 04-14-2022. The results are noted below. Stress Test Report Date: 04-14-2022 Procedure: Exercise tolerance test/imaging study Indications: Chest pain/left shoulder pain; CAD; PCI Consent: Per the patient Procedure: The patient exercised on a Vinicio protocol for 5 minutes completing Stage I and 2 minutes of Stage II achieving a peak heart rate of 150 bpm (99% predicted maximal heart rate) with a peak blood pressure 186/78 mmHg and a peak MET capacity of 7 METs. The baseline ECG demonstrated normal sinus rhythm.? The peak exercise ECG demonstrated somatic/motion artifact with no obvious ECG changes. There were occasional PVCs and brief ventricular trigeminy during exercise and occasional PVCs during recovery.? The functional capacity was considered good. There was no complaint of chest discomfort during exercise or recovery. The examination was discontinued secondary to dyspnea and leg fatigue. Impression: 1.? Technically adequate (percent predicted maximal heart rate greater than 85%) exercise tolerance test 2.? Peak exercise ECG with somatic/motion artifact with no obvious ECG changes 3.? There were occasional PVCs and brief ventricular trigeminy during exercise and occasional PVCs during recovery 4.? Nuclear images pending Myocardial perfusion imaging study: Technique: The patient was injected with 14.1 mCi of technetium 99m Cardiolite and subsequently rest SPECT Cardiolite nuclear imaging was obtained in the horizontal long, vertical long, and short axis views. The patient exercised on a Vinicio protocol for 5 minutes completing Stage I and 2 minutes of Stage II achieving a peak heart rate of 150 bpm (99% predicted maximal heart rate) with a peak blood pressure 186/78 mmHg and a peak MET capacity of 7 METs. The patient was injected with 43.9 mCi of technetium 99m Cardiolite and subsequently stress SPECT Cardiolite nuclear imaging was obtained in the horizontal long, vertical long, and short axis views.? A gated Cardiolite study at peak stress was obtained. Interpretation: Rest and stress SPECT Cardiolite nuclear imaging status post realignment, normalization, and attenuation correction, demonstrates the appearance of body motion during image acquisition and the appearance following stress of an area of diminished myocardial perfusion/tracer uptake in the mid inferior segments.? There is end systolic thickening and brightening.? The gated Cardiolite study demonstrates myocardial thickening and inward wall motion.? The reported LVEF is 85%. Impression: 1.? Rest and stress SPECT Cardiolite nuclear imaging demonstrate the appearance of body motion during image acquisition and the appearance following stress of an area of diminished myocardial perfusion/tracer uptake in the mid inferior segments concerning for an area of stress-induced myocardial ischemia, however, an element of body motion/shifting soft tissue attenuation/artifact cannot necessarily be excluded. 2.? The gated Cardiolite study reports an LVEF of 85%. The patient's previous diagnostic cardiac catheterization from 04-23-2020 is noted below. CONCLUSIONS Elevated Left Ventricular End Diastolic Pressure Segmented LV systolic dysfunction- Mild LVEF: by LV gram 55 % [place] Multivessel CAD Left to Right collateral flow RECOMMENDATIONS Risk factor modification Medical therapy DESCRIPTION OF? PROCEDURE The patient arrived to the procedure lab. The risks and benefits of the procedure as well as a full description of our services here and current unavailability of surgical backup were fully explained to the patient and/or their significant other prior to the catheterization. The Timeout was completed, verifying the correct patient and procedure. The patient's procedural site was prepped and draped in the usual fashion. Local anesthetic was given subcutaneously to right radial region with Lidocaine 2%. Using a modified Seldinger technique, arterial access was obtained via the right radial artery, a 6Fr sheath was inserted.? Right Coronary Artery selective angiography was then performed in multiple views using a 5 Fr. 4.0 [place] catheter. Left Coronary Artery selective angiography was performed in multiple views using a 5 Fr. 4.0 [place] catheter. Left Ventriculography was performed in BRANCH projection using a 5 Fr. [place] catheter. LV to AO pullback pressures were then recorded.The arterial sheath was pulled and a TR Band was applied for hemostasis CORONARY ANGIOGRAPHY DOMINANCE:? Right Dominant LEFT HEART ASSESSMENT Left Ventricular Ejection Fraction: by LV Gram 55 % Inferior Mid Hypokinesis Elevated Left Ventricular End Diastolic Pressure LVEDP: 15 mmHg LEFT MAIN: Angiographically normal LEFT ANTERIOR DESCENDING ARTERY: OSTIAL LAD: 10 - 25 % Stenosis MID LAD: Mild luminal irregularities CIRCUMFLEX ARTERY: Mild luminal irregularities MID CIRC: Previously placed stent has an instent smooth; eccentric; 25 % restenosis RIGHT CORONARY ARTERY: PROX RCA: is occluded COLLATERAL FLOW: Collateral flow from Left to Right AORTIC ROOT: Angiographically normal Based upon the patient's clinical course and pharmacologic stress nuclear imaging studies it was recommended the patient undergo reevaluation in the cardiac catheterization laboratory. The procedure and risk were discussed with the patient. He was agreeable to this approach.
[2022-05-25 08:13] VITALS: BMI 31.3
--- NOTE | 2022-05-26 13:00 | CL.D_ITS ---
Patient Name: XAVI CABELLO Study Date: 05/26/2022 Performing: Chirag Barakat MD Ht: 67 inches 170.18 cm : 1955 Wt: 200 lbs 90.72 kg Age: 67 Gender: male BSA: 2.02 PROCEDURE(S) PERFORMED [id number])[facility] CLINICAL PROFILE AND INDICATIONS Indications: Suspected CAD Heart Failure: None Stress/Imaging Date: 04/14/2022tress Test with SPECT MPI: Positive Intermediate Risk Angina Classification Anginal Classification w/in 2 Weeks: CCS III CAD Presentations: Other: worsening angina CONCLUSIONS RECOMMENDATIONS DESCRIPTION OF PROCEDURE The patient arrived to the procedure lab. The risks and benefits of the procedure as well as a full description of our services here and current unavailability of surgical backup were fully explained to the patient and/or their significant other prior to the catheterization. The Timeout was completed, verifying the correct patient and procedure. The patient's procedural site was prepped and draped in the usual fashion. Local anesthetic was given subcutaneously to right radial region with Lidocaine 2%. Using a modified Seldinger technique, arterial access was obtained via the right radial artery, a 6Fr sheath was inserted. Left Coronary Artery selective angiography was performed in multiple views using a 5 Fr. 4.0 [place] catheter. Right Coronary Artery selective angiography was then performed in multiple views using a 5 Fr. 4.0 [place] catheter. LV to AO pullback pressures were then recorded.The arterial sheath was pulled and a TR Band was applied for hemostasis-10 cc air CORONARY ANGIOGRAPHY DOMINANCE: Right Dominant LEFT HEART ASSESSMENT Left Ventricular Ejection Fraction: Not assessed Elevated Left Ventricular End Diastolic Pressure LVEDP: 24 mmHg LEFT MAIN: Mild calcification LEFT ANTERIOR DESCENDING ARTERY: Mild luminal irregularities OSTIAL LAD: 10 -25 % Stenosis PROX LAD: Mild calcification, 25 % Stenosis CIRCUMFLEX ARTERY: PROX CIRC: Mild calcification MID CIRC: eccentric: 25 % Stenosis, Previously placed stent has an instent 10 - 25 % restenosis OM 2: Proximal - 25 % Stenosis RIGHT CORONARY ARTERY: PROX RCA: is occluded COLLATERAL FLOW: Collateral flow from Left to Right COMPLICATIONS No Complications PROCEDURE MEDICATIONS Fentanyl 50 mcg IV Versed 1 mg IV Fentanyl 50 mcg IV Versed 1 mg IV Oxygen: 2 L/min via nasal cannula Heparin given IA 05/26/2022 11:42:08 Verapamil 2.5mg, Ntg 100mcgs, 3000 units of Heparin given IA 05/26/2022 11:42:08 SUMMARY OF HEMODYNAMIC DATA Time AIR REST ECG 07:49:59 Art 130/69 (90) 11:35:06 AO 100/57 (77) SA 11:42:34 LV 138/10, 24 11:51:08 LV 130/9, 24 11:51:17 LVp 129/6, 23 11:51:24 AOp 118/68 (91) 11:51:31 Signed By Chirag Barakat MD On 05/26/2022 13:00:15 Chirag Barakat MD
== END 2022-05-26 13:45 | disposition home or self-care (01) ==
LOC: CLSP 07:31
PROVIDERS: PCP Internal Medicine; Referring Provider Internal Medicine Cardiovascular Disease; Visit Provider Internal Medicine Cardiovascular Disease
DX: I25.10 Atherosclerotic heart disease of native coronary artery without angina pectoris (principal); E11.9 Type 2 diabetes mellitus without complications; I10 Essential (primary) hypertension; E78.5 Hyperlipidemia, unspecified; G47.33 Obstructive sleep apnea (adult) (pediatric); Z95.1 Presence of aortocoronary bypass graft; E78.00 Pure hypercholesterolemia, unspecified; Z79.84 Long term (current) use of oral hypoglycemic drugs; Z79.890 Hormone replacement therapy; Z79.82 Long term (current) use of aspirin; R06.02 Shortness of breath
CPT/HCPCS: 36415; 71046; 80048; 85025; 85027; 85610; 85730; 87426; 93454; 99152; 99153; C9803; J7040; Q9967; C1769; C1894

== ENCOUNTER → 2022-05-28 | Outpatient (CLI) | payer MEDICARE, MEDICAID, SELFPAY ==
[2022-05-28 13:03] LABS: Anion Gap 6 (5-15); BUN 17 mg/dL (7-18); BUN/Creat Ratio 14.4 RATIO (10-20); Calcium,Total 9.3 mg/dL (8.5-10.1); Chloride 107 mmol/L (98-107); Creatinine, Serum 1.18 mg/dL (0.70-1.30); EST Glomerular Filtration Rate 65 mL/min (>60); Est Glom Filt Rate - Afr Amer 79 mL/min (>60); Glucose 126 mg/dL (74-106); Potassium 4.3 mmol/L (3.5-5.1); Sodium Level 138 mmol/L (136-145)
== END | disposition home or self-care (01) ==
PROVIDERS: PCP Internal Medicine; Visit Provider Internal Medicine Cardiovascular Disease
DX: I25.10 Atherosclerotic heart disease of native coronary artery without angina pectoris (principal); I10 Essential (primary) hypertension; E78.00 Pure hypercholesterolemia, unspecified; Z95.5 Presence of coronary angioplasty implant and graft
CPT/HCPCS: 36415; 80048

== ENCOUNTER → 2022-11-13 | Outpatient (CLI) | payer MEDICARE, MEDICAID, SELFPAY ==
[2022-11-13 13:43] LABS: AST(SGOT) 18 U/L (15-37); Alanine Aminotransfer ALT/SGPT 22 U/L (16-61); Albumin, Serum 3.5 g/dL (3.2-5.0); Alkaline Phosphatase 42 U/L (45-117); Bilirubin, Direct 0.12 mg/dL (0.00-0.30); Cholesterol 135 mg/dL (200); Globulin 3.5 g/dL (2.2-4.2); High Density Lipoprotein 54 mg/dL; Triglycerides 79 mg/dL; Very Low Density Lipoprotein 16 mg/dL (5-40)
== END | disposition home or self-care (01) ==
LOC: LAB 12:07
PROVIDERS: PCP Internal Medicine; Referring Provider Internal Medicine Cardiovascular Disease; Visit Provider Internal Medicine Cardiovascular Disease
DX: E78.00 Pure hypercholesterolemia, unspecified (principal)
CPT/HCPCS: 36415; 80061; 80076

== ENCOUNTER 2023-06-09 11:33 | Emergency (ER) | payer MEDICARE, MEDICAID, SELFPAY ==
[2023-06-09 11:34] VITALS: BP 131/81; PULSE 68; RESP 18; TEMP 36.2; O2SAT 96; BMI 34.4
--- NOTE | 2023-06-09 11:47 | EDS_ITS ---
HPI HPI - URI History of Present Illness Chief Complaint: Cold Sx Narrative Narrative: Male with history of COPD presenting with cough, cold symptoms. He states he had some rhinorrhea and a cough. Mild sputum production. No fevers or chills. No nausea or vomiting. Patient states has been ill for about 5 days. He states he came to the ER today to get a COVID test. ROS ROS ED Constitutional Constitutional ED: Denies chills, fever(s) or sweats Eyes Eyes: Denies blurry vision or change in vision ENT ENT ED: Reports rhinorrhea; Denies ear pain or sore throat Cardiovascular Cardiovascular: Denies chest pain, palpitations or racing heartbeat Respiratory/Chest Respiratory/Chest: Reports cough; Denies dyspnea or sputum Gastrointestinal Gastrointestinal: Denies abdominal pain, constipation, diarrhea, nausea or vomiting Genitourinary Genitourinary ED: Denies dysuria, hematuria or urinary frequency Musculoskeletal Musculoskeletal: Denies arthralgias, myalgias or neck pain Integumentary Denies abscess, Abrasions or rash Neurologic Neurologic: Denies headache(s), paresthesias or weakness Psychiatric Psychiatric: Denies anxiety, depression, suicidal ideation or suicidal thoughts Endocrine Endocrinology: Denies polydipsia or polyuria PFSH [facility] Medical History Atherosclerotic heart disease of [place] coronary artery without angina pectoris Chest pain Essential hypertension Hyperlipidemia Hypertension [place] on CPAP Presence of stent in coronary artery (~04/05/12) Pure hypercholesterolemia Type II diabetes mellitus Home Medications aspirin 81 mg chewable tablet 81 mg PO DAILY@0800 07/20/15 [History Last Taken 05/26/22] nitroglycerin 0.4 mg sublingual tablet 0.4 mg sublingual Q5M PRN Chest Pain #25 tabs 07/23/15 [Rx Last Taken 01/03/19] tamsulosin 0.4 mg capsule 0.4 mg PO DAILY 09/08/16 [History Last Taken 01/03/19] fenofibrate 160 mg tablet 160 mg PO DAILY 09/10/16 [History Last Taken 01/03/19] sildenafil 50 mg tablet (Viagra) 50 mg PO DAILY PRN sexual activity 03/25/20 [History Last Taken Unknown] albuterol sulfate 90 mcg/actuation aerosol inhaler (ProAir HFA) 2 puff inhalation Q6H PRN Shortness Of Breath Or Wheezing 10/30/20 [History Last Taken Unknown] lisinopril 10 mg tablet 10 mg PO DAILY 10/30/20 [History Last Taken 05/26/22] metoprolol tartrate 25 mg tablet 25 mg PO BID 05/08/21 [History Last Taken 05/26/22] empagliflozin 25 mg tablet (Jardiance) 25 mg PO DAILY 12/04/21 [History Last Taken Unknown] metformin 500 mg tablet 1,000 mg PO BID 12/04/21 [History Last Taken 05/25/22] rosuvastatin 40 mg tablet 40 mg PO DAILY 12/04/21 [History Last Taken Unknown] ranolazine 1,000 mg tablet,extended release,12 hr (Ranexa) 1,000 mg PO BID #180 tabs 05/26/22 [Rx Last Taken Unknown] gabapentin 100 mg capsule 100 mg PO DAILY PRN 05/14/23 [History Last Taken Unknown] glipizide 2.5 mg tablet, extended release 24 hr 2.5 mg PO DAILY 05/14/23 [History Last Taken Unknown] Allergy/AdvReac Type Severity Reaction Status Date / Time No Known Allergies Allergy Verified 06/09/23 11:34 Family History Sister Hypertension Surgical History History of left heart catheterization (LHC) (~05/26/22) History of umbilical hernia repair Presence of coronary angioplasty implant and graft (~04/05/12) Social History Smoking Status: Never smoker alcohol intake: current alcohol intake frequency: a few times a week Alcohol type: beer substance use type: marijuana caffeine: Yes EXAM Physical Exam Const Vital Signs: 06/09/23 11:34 06/09/23 11:57 Temperature 97.2 F L Temperature Source Temporal Pulse Rate 68 Respiratory Rate 18 Respiratory Effort Normal Non-Labored Respiratory Pattern Normal Blood Pressure 131/81 H Blood Pressure Mean 97 Pulse Ox 96 Oxygen Delivery Method Room Air Positive well nourished General Appearance ED: NAD; Negative for pallor HEENT Reports moist mucous membranes normocephalic and atraumatic Eyes PERRL and EOMs intact bilaterally Resp normal respiratory effort and clear to auscultation bilaterally Auscultation: Negative for rales, rhonchi or wheezes Cardio Rate: regular rate Rhythm: regular rhythm Extremity normal to inspection Neuro oriented x3 and CN's II-XII intact bilaterally Sensorium / Orientation: alert Motor Exam: strength 5/5 throughout Psych mental status grossly normal Skin General Skin Exam: Negative for jaundice or pallor MDM MDM MDM Narrative Medical decision making narrative: Senting with URI symptoms for the last 5 days. Lungs are clear to auscultation bilaterally. Good rate and rhythm. Vital signs are stable he is afebrile. Is not hypoxic, tachypneic. Patient requested COVID test. Discussed with the patient that he is already been having symptoms for 5 days and this would not change the course of treatment but he still wants this. Flu are negative. Patient counseled on return precautions. I feel he stable for discharge at this time. Impression: 1. Viral syndrome Lab Data Attestation: I reviewed the patient's lab results. Discharge Plan Triage Chief Complaint: Cold Sx ED Provider: Garry Warren Dx/Rx/DC Orders Instructions: ED Pharyngitis, Viral Prescriptions: No Action sildenafil [Viagra] 50 mg tablet 50 mg PO DAILY PRN (Reason: sexual activity) lisinopril 10 mg tablet 10 mg PO DAILY albuterol sulfate [ProAir HFA] 90 mcg/actuation HFA aerosol inhaler 2 puff INHALATION Q6H PRN (Reason: Shortness Of Breath Or Wheezing) rosuvastatin 40 mg tablet 40 mg PO DAILY Jardiance 25 mg tablet 25 mg PO DAILY glipizide 2.5 mg tablet extended release 24hr 2.5 mg PO DAILY Patient Comments: Take 1 tablet by mouth once daily. gabapentin 100 mg capsule 100 mg PO DAILY PRN aspirin 81 MG tablet,chewable 81 mg PO DAILY@0800 Patient Comments: antiplatelet nitroglycerin 0.4 MG tablet 0.4 mg SUBLINGUAL Q5M PRN (Reason: Chest Pain) Qty: 25 0RF Patient Comments: CHEST PAIN tamsulosin 0.4 MG capsule 0.4 mg PO DAILY fenofibrate 160 MG tablet 160 mg PO DAILY metoprolol tartrate 25 mg tablet 25 mg PO BID metformin 500 mg tablet 1,000 mg PO BID ranolazine [Ranexa] 1,000 mg tablet extended release 12 hr 1,000 mg PO BID Qty: 180 4RF Primary Care Provider: Grant Krause Referrals: Grant Krause MD [Primary Care Provider] - Disposition Disposition: Home, Self Care
== END 2023-06-09 13:06 | disposition home or self-care (01) ==
PROVIDERS: Emergency Provider Student in an Organized Health Care Education/Training Program; PCP Internal Medicine; Visit Provider Student in an Organized Health Care Education/Training Program
DX: B34.9 Viral infection, unspecified (principal); J44.9 Chronic obstructive pulmonary disease, unspecified; E11.9 Type 2 diabetes mellitus without complications; E78.00 Pure hypercholesterolemia, unspecified; I10 Essential (primary) hypertension; I25.10 Atherosclerotic heart disease of native coronary artery without angina pectoris; Z79.82 Long term (current) use of aspirin; Z79.899 Other long term (current) drug therapy; Z95.5 Presence of coronary angioplasty implant and graft
CPT/HCPCS: 87428; 99282

== ENCOUNTER → 2023-12-06 | Outpatient (CLI) | payer MEDICARE, MEDICAID, SELFPAY ==
[2023-12-06 16:30] LABS: AST(SGOT) 17 U/L (15-37); Alanine Aminotransfer ALT/SGPT 18 U/L (16-61); Albumin, Serum 3.5 g/dL (3.2-5.0); Alkaline Phosphatase 35 U/L (45-117); Anion Gap 2 (5-15); BUN 29 mg/dL (7-18); BUN/Creat Ratio 21.3 RATIO (10-20); Calcium,Total 9.3 mg/dL (8.5-10.1); Chloride 109 mmol/L (98-107); Creatinine, Serum 1.36 mg/dL (0.70-1.30); EST Glomerular Filtration Rate 55 mL/min (>60); Est Glom Filt Rate - Afr Amer 67 mL/min (>60); Globulin 3.4 g/dL (2.2-4.2); Glucose 122 mg/dL (74-106); Potassium 4.3 mmol/L (3.5-5.1); Protein, Total 6.9 g/dL (6.4-8.2); Sodium Level 140 mmol/L (136-145)
== END | disposition home or self-care (01) ==
LOC: LAB 15:38
PROVIDERS: PCP Internal Medicine; Referring Provider Internal Medicine Cardiovascular Disease; Visit Provider Internal Medicine Cardiovascular Disease
DX: E66.9 Obesity, unspecified (principal); E78.5 Hyperlipidemia, unspecified; R60.0 Localized edema; I25.10 Atherosclerotic heart disease of native coronary artery without angina pectoris; I10 Essential (primary) hypertension
CPT/HCPCS: 36415; 80053

== ENCOUNTER → 2023-12-14 | Outpatient (CLI) | payer MEDICARE, MEDICAID, SELFPAY ==
[2023-12-14 17:28] LABS: Anion Gap 7 (5-15); BUN 35 mg/dL (7-18); BUN/Creat Ratio 20.5 RATIO (10-20); Calcium,Total 9.6 mg/dL (8.5-10.1); Chloride 104 mmol/L (98-107); Creatinine, Serum 1.71 mg/dL (0.70-1.30); EST Glomerular Filtration Rate 42 mL/min (>60); Est Glom Filt Rate - Afr Amer 51 mL/min (>60); Glucose 146 mg/dL (74-106); Potassium 4.5 mmol/L (3.5-5.1); Sodium Level 138 mmol/L (136-145)
== END | disposition home or self-care (01) ==
LOC: LAB 16:22
PROVIDERS: PCP Internal Medicine; Referring Provider Internal Medicine Cardiovascular Disease; Visit Provider Internal Medicine Cardiovascular Disease
DX: R60.0 Localized edema (principal); I25.10 Atherosclerotic heart disease of native coronary artery without angina pectoris; E66.9 Obesity, unspecified; I10 Essential (primary) hypertension
CPT/HCPCS: 36415; 80048

== ENCOUNTER → 2024-01-13 | Outpatient (CLI) | payer MEDICARE, MEDICAID, SELFPAY ==
--- NOTE | 2024-01-13 13:44 | ECHOD_ITS ---
Reason For Study: CHEST PAIN Procedure This was a 2D Doppler, Color Flow transthoracic echocardiogram. Exam performed in department. Left Ventricle Normal LV size. Mild concentric left ventricular hypertrophy. The left ventricular ejection fraction is 65 %. Normal diastology for age. Right Ventricle Normal right ventricle. Atria The left and right atria are normal. Mitral Valve Trivial mitral valve insufficiency. Tricuspid Valve Trivial tricuspid valve insufficiency. Normal pulmonary artery pressure. Aortic Valve The aortic valve is not well visualized in the short axis view. Mild aortic stenosis. Pulmonic Valve The pulmonic valve is not well visualized. Great Vessels Normal sized aortic root. Pericardium/Pleural Epicardial fat. MMode/2D Measurements & Calculations LVIDd: 5.0 cm IVSd: 1.3 cm Ao root diam: 3.1 cm RVDd: 3.4 cm LVPWd: 0.94 cm LAV(MOD-bp): 44.4 ml LVAd ap4: 21.6 cm2 SV(MOD-sp4): 27.2 ml LAV(MOD-bp) Indexed: 20.9 ml/m2 LVLd ap4: 7.6 cm LAV(MOD-sp2): 32.3 ml EDV(MOD-sp4): 52.2 ml LAV(MOD-sp4): 52.6 ml EDV(sp4-el): 52.0 ml LVAs ap4: 12.6 cm2 LVLs ap4: 6.2 cm ESV(MOD-sp4): 25.0 ml ESV(sp4-el): 22.0 ml EF(MOD-sp4): 52.1 % EF(sp4-el): 57.7 % SV(sp4-el): 30.0 ml LA A4 area: 19.4 cm2 RA A4 area: 14.7 cm2 TAPSE: 1.9 cm Time Measurements MV dec time: 0.22 sec Doppler Measurements & Calculations MV E max keanu: 80.5 cm/sec Lat Peak E' Keanu: 12.1 cm/sec Med Peak E' Keanu: 5.0 cm/sec MV A max keanu: 49.8 cm/sec E/E' lat: 6.6 E/E' med: 16.0 MV E/A: 1.6 MV V2 max: 90.0 cm/sec MV dec slope: 390.7 cm/sec2 Ao V2 max: 224.6 cm/sec MV max P.2 mmHg Ao max P.2 mmHg MV V2 mean: 52.6 cm/sec Ao V2 mean: 149.3 cm/sec MV mean P.3 mmHg Ao mean P.3 mmHg MV V2 VTI: 27.3 cm Ao V2 VTI: 50.4 cm AV (velocity ratio): 0.51 LV V1 max: 119.0 cm/sec PA V2 max: 92.8 cm/sec TR max keanu: 260.5 cm/sec LV V1 max P.7 mmHg PA V2 mean: 65.6 cm/sec TR max P.1 mmHg LV V1 mean P.2 mmHg LV V1 mean: 85.8 cm/sec LV V1 VTI: 25.6 cm ECHO/Echo Complete Interpretation Summary Mild concentric left ventricular hypertrophy. The left ventricular ejection fraction is 65 %. Mild aortic stenosis. Ordering Physician: Calderon Cordova Referring Physician: Calderon Cordova Performed By: Susy Koehler and Student
== END | disposition home or self-care (01) ==
LOC: CVS 13:42
PROVIDERS: PCP Internal Medicine; Referring Provider Internal Medicine Cardiovascular Disease; Visit Provider Internal Medicine Cardiovascular Disease
DX: Z98.890 Other specified postprocedural states (principal); R60.0 Localized edema; I25.10 Atherosclerotic heart disease of native coronary artery without angina pectoris; I10 Essential (primary) hypertension; G47.33 Obstructive sleep apnea (adult) (pediatric); Z99.89 Dependence on other enabling machines and devices; E66.9 Obesity, unspecified
CPT/HCPCS: 93306

== ENCOUNTER → 2024-06-06 | Outpatient (CLI) | payer MEDICARE, MEDICAID, SELFPAY ==
[2024-06-06 15:46] LABS: AST(SGOT) 19 U/L (15-37); Alanine Aminotransfer ALT/SGPT 23 U/L (16-61); Albumin, Serum 3.5 g/dL (3.2-5.0); Alkaline Phosphatase 35 U/L (45-117); Anion Gap 7 (5-15); BUN 29 mg/dL (7-18); Calcium,Total 9.5 mg/dL (8.5-10.1); Chloride 105 mmol/L (98-107); Cholesterol 150 mg/dL (200); Creatinine, Serum 1.53 mg/dL (0.70-1.30); EST Glomerular Filtration Rate 48 mL/min (>60); Est Glom Filt Rate - Afr Amer 58 mL/min (>60); Globulin 3.5 g/dL (2.2-4.2); Glucose 196 mg/dL (74-106); High Density Lipoprotein 59 mg/dL; Potassium 4.5 mmol/L (3.5-5.1); Sodium Level 138 mmol/L (136-145); Triglycerides 95 mg/dL; Very Low Density Lipoprotein 19 mg/dL (5-40)
== END | disposition home or self-care (01) ==
PROVIDERS: PCP Internal Medicine; Referring Provider Internal Medicine Cardiovascular Disease; Visit Provider Internal Medicine Cardiovascular Disease
DX: E78.5 Hyperlipidemia, unspecified (principal); R60.0 Localized edema; I25.10 Atherosclerotic heart disease of native coronary artery without angina pectoris; Z95.5 Presence of coronary angioplasty implant and graft
CPT/HCPCS: 36415; 80053; 80061

== ENCOUNTER 2024-07-11 00:19 | Observation (INO) | payer MEDICARE, MEDICAID, SELFPAY ==
[2024-07-11] VITALS (22 sets, daily range): BP systolic 103–148; BP diastolic 63–114; PULSE 67–83; RESP 14–31; TEMP 36.3–36.7; O2SAT 94–99; BMI 36.2; BMI 35.3
--- NOTE | 2024-07-11 00:43 | RAD_ITS ---
EXAM: XR Chest 1 View INDICATION: Male, 69 years old. Chest pain TECHNIQUE: Single AP view COMPARISON: None FINDINGS: DEVICES: None LUNGS: No confluent air space opacity. Mild coarsened prominence of the interstitial lung markings noted at bilateral lung bases, likely representing scar formation. No concerning pulmonary nodule. No pleural effusion or pneumothorax. MEDIASTINUM: Borderline cardiomegaly. Mediastinal silhouette is within normal limits. No central pulmonary vascular congestion. . SKELETAL STRUCTURES: No acute skeletal abnormality. Multilevel degenerative changes spine UPPER ABDOMEN: Unremarkable RAD/Chest 1 View (Portable) IMPRESSION: Likely bibasilar linear scar formation with no acute cardiopulmonary disease Electronically Signed: Rudolph Ambrosio MD at 1:44 EDT ,
--- NOTE | 2024-07-11 00:44 | EDS_ITS ---
HPI History of Present Illness Chief Complaint: Upper Extremity Injury Narrative Narrative: Chief complaint and HPI: Left upper extremity pain radiating to the chest. 69-year-old male with history of ACS status post stents, DM, HTN, HLD, CVA, presents for evaluation of left upper extremity pain that is radiating into his left chest. Patient states that this feels similar to his previous [place]. Patient states he woke up with left arm pain. He did state that he slept on his left arm last night. He states that the pain radiates into his chest. He states that the pain has not improved and is slightly worsening therefore he presented today. He did take his baby aspirin this morning. He denies any fever, chills, dizziness, lightheadedness, nausea, vomiting, shortness of breath, abdominal pain, numbness/tingling, weakness. Review of systems: See HPI Medications: As listed on the chart Allergies: As listed on the chart PFSH: Per chart Vital signs: As listed on the chart. Reviewed. Physical exam: Gen: A&O x3, NAD Head: Normocephalic, atraumatic Eyes: No sclera icterus, conjunctiva clear ENT: Moist mucous membranes Neck: Trachea midline, No JVD CV: RRR, no murmurs, no peripheral edema Resp: Lungs CTA BL, no w/r/c GI: Abd soft, non-distended, non-tender, no r/r/g Musc: Full ROM, no deformity, bilateral upper extremity ulnar and radial pulses plus 2 out of 4-no swelling or tenderness to palpation Skin: Warm, dry Neuro: Alert, oriented, grossly intact, sensation intact Psych: Cooperative, appropriate mood and affect [facility] Medical History Atherosclerotic heart disease of [place] coronary artery without angina pectoris Chest pain COVID-19 virus infection Essential hypertension Hyperlipidemia Hypertension Leg edema, left [place] on CPAP Presence of stent in coronary artery (~04/05/12) Pure hypercholesterolemia Tinnitus Type II diabetes mellitus Home Medications ?Medication ?Instructions ?Recorded ?Last Taken ?Type aspirin 81 mg chewable tablet 81 mg PO DAILY@0800 07/20/15 05/26/22 History nitroglycerin 0.4 mg sublingual 0.4 mg sublingual Q5M PRN Chest 07/23/15 01/03/19 Rx tablet Pain #25 tabs tamsulosin 0.4 mg capsule 0.4 mg PO DAILY 09/08/16 01/03/19 History fenofibrate 160 mg tablet 160 mg PO DAILY 09/10/16 01/03/19 History albuterol sulfate 90 mcg/actuation 2 puff inhalation Q6H PRN 10/30/20 Unknown History aerosol inhaler (ProAir HFA) Shortness Of Breath Or Wheezing lisinopril 10 mg tablet 10 mg PO DAILY 10/30/20 05/26/22 History metoprolol tartrate 25 mg tablet 25 mg PO BID 05/08/21 05/26/22 History empagliflozin 25 mg tablet 25 mg PO DAILY 12/04/21 Unknown History (Jardiance) metformin 500 mg tablet 1,000 mg PO BID 12/04/21 05/25/22 History rosuvastatin 40 mg tablet 40 mg PO DAILY 12/04/21 Unknown History glipizide 2.5 mg tablet, extended 2.5 mg PO DAILY 05/14/23 Unknown History release 24 hr ranolazine 1,000 mg 1,000 mg PO BID #180 tabs 07/09/23 Unknown Rx tablet,extended release,12 hr (Ranexa) furosemide 20 mg tablet 20 mg PO DAILY #90 tabs 12/06/23 Unknown Rx gabapentin 100 mg capsule 100 mg PO BID 12/06/23 Unknown History potassium chloride 10 mEq 10 meq PO DAILY #90 tabs 12/06/23 Unknown Rx tablet,extended release sildenafil 50 mg tablet (Viagra) 50 mg PO QDAY PRN sexual activity 06/06/24 Unknown History Allergy/AdvReac Type Severity Reaction Status Date / Time No Known Allergies Allergy Verified 07/11/24 00:20 Family History Sister Hypertension Surgical History History of left heart catheterization (LHC) (~05/26/22) History of umbilical hernia repair Presence of coronary angioplasty implant and graft (~04/05/12) Social History (Updated 06/06/24 @ 13:53 by Suresh Beltran RN) Smoking Status: Never smoker alcohol intake: former substance use type: former substance user Date of last use: stopped marijuana caffeine: Yes EXAM Physical Exam Const Vital Signs: 07/11/24 00:20 Temperature 97.8 F Temperature Source Oral Pulse Rate 83 Respiratory Rate 16 Blood Pressure 148/82 H Blood Pressure Mean 104 Pulse Ox 98 Oxygen Delivery Method Room Air MDM MDM MDM Narrative Medical decision making narrative: 69-year-old male with significant cardiac history presents for evaluation of left upper extremity pain that radiates into his left chest. States this feels similar to his previous [place]. On chart review patient had an echo in December 2023 EF was 65%. His last cardiac cath was April 2022 showed mild stenosis in multiple vessels. Differential diagnosis includes but is not limited to ACS, arrhythmia, electrolyte abnormality, musculoskeletal strain. Aspirin ordered along with cardiac workup. EKG and chest x-ray reviewed see below. CBC unremarkable without leukocytosis or anemia. BMP without STEPHANIE. Magnesium unremarkable. Troponin unremarkable x 2. Patient is still having his left arm pain that is radiating to his left chest. Given that he has a moderate heart score of 5 and states that this feels like his previous [place], patient will warrant admission for further cardiac workup. Patient was updated on results and confirmed understanding the plan. Nitro ordered. Dr. Cristina was contacted and patient was discussed. He accepted admission. EKG: Interpreted by me/EM physician: EKG shows normal sinus rhythm with PVCs. No acute ischemic changes. Heart rate 76. Diagnostic: Interpreted by me/EM physician: Chest x-ray shows bibasilar atelectasis, no pneumonia, effusion, cardiomegaly, pneumothorax Impression: 1. Left upper extremity pain radiating to the chest 2. Concern for ACS with moderate heart score Discharge Plan Triage Chief Complaint: Upper Extremity Injury ED Provider: Jere Fabian Dx/Rx/DC Orders Prescriptions: No Action lisinopril 10 mg tablet 10 mg PO DAILY albuterol sulfate [ProAir HFA] 90 mcg/actuation HFA aerosol inhaler 2 puff INHALATION Q6H PRN (Reason: Shortness Of Breath Or Wheezing) rosuvastatin 40 mg tablet 40 mg PO DAILY Jardiance 25 mg tablet 25 mg PO DAILY glipizide 2.5 mg tablet extended release 24hr 2.5 mg PO DAILY Patient Comments: Take 1 tablet by mouth once daily. gabapentin 100 mg capsule 100 mg PO BID furosemide 20 mg tablet 20 mg PO DAILY Qty: 90 3RF potassium chloride 10 mEq tablet extended release 10 meq PO DAILY Qty: 90 3RF sildenafil [Viagra] 50 mg tablet 50 mg PO QDAY PRN (Reason: sexual activity) Rx Instructions: administer 30 minutes to 4 hours before activity aspirin 81 MG tablet,chewable 81 mg PO DAILY@0800 Patient Comments: antiplatelet nitroglycerin 0.4 MG tablet 0.4 mg SUBLINGUAL Q5M PRN (Reason: Chest Pain) Qty: 25 0RF Patient Comments: CHEST PAIN tamsulosin 0.4 MG capsule 0.4 mg PO DAILY fenofibrate 160 MG tablet 160 mg PO DAILY metoprolol tartrate 25 mg tablet 25 mg PO BID metformin 500 mg tablet 1,000 mg PO BID ranolazine [Ranexa] 1,000 mg tablet extended release 12 hr 1,000 mg PO BID Qty: 180 4RF Primary Care Provider: Grant Krause Referrals: Grant Krause MD [Primary Care Provider] - Print Language: Sammarinese
[2024-07-11] MEDS: Aspirin 81 MG TAB.CHEW 324 MG PO (00:50)
[2024-07-11 00:54] LABS: Absolute Lymphocyte Count 1.75 X10^3/uL (0.83-4.51); Basophil# 0.04 X10^3/uL; Basophil% 0.5 % (0-1); Eosinophil# 0.23 X10^3/uL; Eosinophils% 2.9 % (0-5); Hemoglobin 14.2 g/dL (13.0-16.5); Lymphocyte # 1.75 X10^3/ul (0.83-4.51); Lymphocyte % 22.3 % (19-41); Mean Corp Hgb Conc 32.3 g/dL (32-36); Mean Corpuscular Hgb 31.8 pg (27.0-32.0); Mean Corpuscular Volume 98.4 fL (80-94); Mean Platelet Vol. 10.3 fl (6.2-12.0); Monocyte# 0.75 X10^3/uL; Monocyte% 9.6 % (0-10); NRBC Flagged by Analyzer 0 % (0-5); Neutrophil # 5.02 X10^3/uL (2.7-7.7); Neutrophil % 64.2 % (47-70); Platelet Count 292 K/mm3 (150-450); RBC Distribution Width CV 13.3 % (11.6-14.6); RBC Distribution Width SD 48.2 fl (35.1-43.9); Red Blood Count 4.47 M/mm3 (4.6-6.2); White Blood Count 7.8 K/mm3 (4.4-11.0)
[2024-07-11 01:15] LABS: Anion Gap 6 (5-15); BUN 22 mg/dL (7-18); BUN/Creat Ratio 17.9 RATIO (10-20); Chloride 107 mmol/L (98-107); Creatinine, Serum 1.23 mg/dL (0.70-1.30); EST Glomerular Filtration Rate 62 mL/min (>60); Est Glom Filt Rate - Afr Amer 75 mL/min (>60); Estimated Creatinine Clearance 63.59 ml/min; Glucose 166 mg/dL (74-106); Magnesium 1.9 mg/dL (1.6-2.6); Potassium 4.1 mmol/L (3.5-5.1); Sodium Level 140 mmol/L (136-145); Troponin-I HS (w/2H Reflex) 4 pg/mL (3.0-78.0)
[2024-07-11 02:51] LABS: Reflex Troponin-HS? (from REC) Y
[2024-07-11 03:12] LABS: Troponin-I HS 5 pg/mL (3.0-78.0)
--- NOTE | 2024-07-11 03:52 | HP.PCM_ITS ---
HPI - General General Date of Admission: 07/11/24 Date of Service: 07/11/24 Chief Complaint: Chest pain HPI Narrative XAVI CABELLO, is a 69 M who presents with left arm pain radiating to his chest. Onset of symptoms began earlier this evening when he woke up with pain that he states felt like his previous acute coronary syndrome pain. Patient has a history of diabetes, hypertension, hyperlipidemia and obstructive sleep apnea and obesity. Initial set of cardiac markers are negative and EKGs negative for ST elevation. Last heart catheterization was 2021 that showed mild coronary disease at that time. Patient denies any fevers or chills, shortness of breath and/or nausea or vomiting. Patient will be admitted to progressive care unit for observation and rule out cardiac etiology. [facility] Medical History Atherosclerotic heart disease of [place] coronary artery without angina pectoris Chest pain COVID-19 virus infection Essential hypertension Hyperlipidemia Hypertension Leg edema, left ALBAN on CPAP Presence of stent in coronary artery (~04/05/12) Pure hypercholesterolemia Tinnitus Type II diabetes mellitus Home Medications ?Medication ?Instructions ?Recorded ?Last Taken ?Type aspirin 81 mg chewable tablet 81 mg PO DAILY@0800 07/20/15 05/26/22 History nitroglycerin 0.4 mg sublingual 0.4 mg sublingual Q5M PRN Chest 07/23/15 01/03/19 Rx tablet Pain #25 tabs tamsulosin 0.4 mg capsule 0.4 mg PO DAILY 09/08/16 01/03/19 History fenofibrate 160 mg tablet 160 mg PO DAILY 09/10/16 01/03/19 History albuterol sulfate 90 mcg/actuation 2 puff inhalation Q6H PRN 10/30/20 Unknown History aerosol inhaler (ProAir HFA) Shortness Of Breath Or Wheezing lisinopril 10 mg tablet 10 mg PO DAILY 10/30/20 05/26/22 History metoprolol tartrate 25 mg tablet 25 mg PO BID 05/08/21 05/26/22 History empagliflozin 25 mg tablet 25 mg PO DAILY 12/04/21 Unknown History (Jardiance) metformin 500 mg tablet 1,000 mg PO BID 12/04/21 05/25/22 History rosuvastatin 40 mg tablet 40 mg PO DAILY 12/04/21 Unknown History glipizide 2.5 mg tablet, extended 2.5 mg PO DAILY 05/14/23 Unknown History release 24 hr ranolazine 1,000 mg 1,000 mg PO BID #180 tabs 07/09/23 Unknown Rx tablet,extended release,12 hr (Ranexa) furosemide 20 mg tablet 20 mg PO DAILY #90 tabs 12/06/23 Unknown Rx gabapentin 100 mg capsule 100 mg PO BID 12/06/23 Unknown History potassium chloride 10 mEq 10 meq PO DAILY #90 tabs 12/06/23 Unknown Rx tablet,extended release sildenafil 50 mg tablet (Viagra) 50 mg PO QDAY PRN sexual activity 06/06/24 Unknown History Allergy/AdvReac Type Severity Reaction Status Date / Time No Known Allergies Allergy Verified 07/11/24 00:20 Family History Sister Hypertension Surgical History History of left heart catheterization (LHC) (~05/26/22) History of umbilical hernia repair Presence of coronary angioplasty implant and graft (~04/05/12) Social History (Updated 06/06/24 @ 13:53 by Suresh Beltran RN) Smoking Status: Never smoker alcohol intake: former substance use type: former substance user Date of last use: stopped marijuana caffeine: Yes ROS Constitutional Constitutional: Denies chills or fever(s) Eyes Eyes: Denies blurry vision ENT HEENT: Denies abnormal hearing Cardiovascular Cardiovascular: Reports chest pain Respiratory/Chest Respiratory/Chest: Denies cough Gastrointestinal Gastrointestinal: Denies abdominal pain Musculoskeletal Musculoskeletal: Reports extremity pain; Denies back pain Integumentary Integumentary: Reports dry skin Neurologic Neurologic: Denies abnormal gait Psychiatric Psychiatric: Denies anxiety Vital Signs Vital Signs Vital Signs: 07/11/24 00:20 07/11/24 00:28 07/11/24 00:30 Temperature 97.8 F Temperature Source Oral Pulse Rate 83 82 80 Respiratory Rate 16 18 17 Respiratory Effort Respiratory Pattern Blood Pressure 148/82 H Blood Pressure Mean 104 Pulse Ox 98 96 97 Oxygen Delivery Method Room Air 07/11/24 00:33 07/11/24 00:45 07/11/24 00:45 Temperature Temperature Source Pulse Rate 80 78 Respiratory Rate 27 H 18 Respiratory Effort Normal Respiratory Pattern Normal Blood Pressure 125/81 H 108/68 Blood Pressure Mean 95 80 Pulse Ox 97 95 Oxygen Delivery Method Room Air 07/11/24 01:00 07/11/24 01:15 07/11/24 01:30 Temperature Temperature Source Pulse Rate 67 Respiratory Rate 19 H Respiratory Effort Respiratory Pattern Blood Pressure 132/87 H 128/82 H 131/71 H Blood Pressure Mean 102 96 88 Pulse Ox 96 96 96 Oxygen Delivery Method Room Air Room Air 07/11/24 01:45 07/11/24 02:00 07/11/24 02:15 Temperature Temperature Source Pulse Rate 71 Respiratory Rate 16 Respiratory Effort Respiratory Pattern Blood Pressure 112/75 123/80 H 117/74 Blood Pressure Mean 88 92 88 Pulse Ox 96 95 95 Oxygen Delivery Method Room Air 07/11/24 02:30 07/11/24 02:45 07/11/24 02:46 Temperature Temperature Source Pulse Rate 83 79 Respiratory Rate 16 14 Respiratory Effort Respiratory Pattern Blood Pressure 119/73 103/80 Blood Pressure Mean 83 89 Pulse Ox 94 95 96 Oxygen Delivery Method 07/11/24 03:00 07/11/24 03:35 Temperature 98.1 F Temperature Source Pulse Rate 82 78 Respiratory Rate 31 H 16 Respiratory Effort Respiratory Pattern Blood Pressure 106/63 123/76 H Blood Pressure Mean 78 91 Pulse Ox 97 99 Oxygen Delivery Method Room Air Weight Weight: 231 lb 4.238 oz Body Mass Index (BMI) 36.2 Physical Exam Const oriented x3 General Appearance: cooperative and well developed HEENT normocephalic and head/scalp atraumatic Eyes PERRL Neck no lymphadenopathy Lymph Lymphatic: no lymphadenopathy noted Resp normal respiratory effort, normal air movement and clear to auscultation bilaterally Cardio regular rate, regular rhythm, S1 normal heart sound, S2 normal heart sound and no murmurs GI normal to inspection, nondistended, normoactive bowel sounds Extremity normal capillary refill Skin General Skin Exam: no breakdown Neuro no focal motor deficits and no sensory deficits noted Results Lab / Micro Data 07/11/24 00:31 07/11/24 00:31 Labs: Laboratory Results - last 24 hr 07/11/24 00:31: WBC 7.8, RBC 4.47 L, Hgb 14.2, Hct 44.0, MCV 98.4 H, MCH 31.8, MCHC 32.3, RDW Std Deviation 48.2 H, RDW Coeff of Marlen 13.3, Plt Count 292, MPV 10.3, Immature Gran % (Auto) 0.500, Neut % (Auto) 64.2, Lymph % (Auto) 22.3, [place] % (Auto) 9.6, Eos % (Auto) 2.9, Baso % (Auto) 0.5, Absolute Neuts (auto) 5.0, Absolute Lymphs (auto) 1.75, Nucleated RBC % 0, Sodium 140, Potassium 4.1, Chloride 107, Carbon Dioxide 27.0, Anion Gap 6, BUN 22 H, Creatinine 1.23, Estim Creat Clear Calc 63.59, Est GFR (MDRD) Af Amer 75, Est GFR (MDRD) Non-Af 62, BUN/Creatinine Ratio 17.9, Glucose 166 H, Calcium 9.0, Magnesium 1.9, Troponin I High Sens 4 07/11/24 02:43: Troponin I High Sens 5 Imaging Radiology Impression Chest X-Ray 07/11/24 00:43 IMPRESSION: Likely bibasilar linear scar formation with no acute cardiopulmonary disease Electronically Signed: Rudolph Ambrosio MD at 1:44 EDT , Assessment & Plan Assessment/Plan (1) History of left heart catheterization (LHC): (2) Presence of stent in coronary artery: (3) Pure hypercholesterolemia: (4) Essential hypertension: (5) Chest pain: QUALIFIERS: Chest pain type: unspecified Qualified Code(s): R07.9 - Chest pain, unspecified (6) Type II diabetes mellitus: (7) Obesity (BMI 30.0-34.9): (8) ALBAN on CPAP: PLAN: Plan 1. Chest pain rule out [place]?admit patient to progressive care unit for observation, cycle cardiac enzymes, nitroglycerin as needed for pain and oxygen per routine protocol, will order a nuclear exercise stress test 2. Hypertension?continue routine home medications 3. Diabetes?we will continue routine home medications and monitor blood glucose levels 4. Hyperlipidemia?continue statin medication 5. ALBAN?continue CPAP 6. DVT prophylaxis?low molecular weight heparin Charges/Coding Visit Charges OBSV E&M: 76097 Observ/hosp same date L2
[2024-07-11 06:03] LABS: Absolute Lymphocyte Count 2.14 X10^3/uL (0.83-4.51); Absolute Neutrophil Count 4.1 X10^3/uL (2.0-7.7); Basophil# 0.05 X10^3/uL; Basophil% 0.7 % (0-1); Eosinophil# 0.28 X10^3/uL; Eosinophils% 3.8 % (0-5); Hematocrit 42.1 % (40-54); Hemoglobin 13.7 g/dL (13.0-16.5); Lymphocyte # 2.14 X10^3/ul (0.83-4.51); Mean Corp Hgb Conc 32.5 g/dL (32-36); Mean Corpuscular Hgb 32.1 pg (27.0-32.0); Mean Corpuscular Volume 98.6 fL (80-94); Mean Platelet Vol. 10.4 fl (6.2-12.0); Monocyte# 0.74 X10^3/uL; NRBC Flagged by Analyzer 0 % (0-5); Neutrophil # 4.14 X10^3/uL (2.7-7.7); Platelet Count 279 K/mm3 (150-450); RBC Distribution Width CV 13.4 % (11.6-14.6); RBC Distribution Width SD 47.9 fl (35.1-43.9); Red Blood Count 4.27 M/mm3 (4.6-6.2); White Blood Count 7.4 K/mm3 (4.4-11.0)
[2024-07-11 06:38] LABS: Anion Gap 4 (5-15); BUN 23 mg/dL (7-18); BUN/Creat Ratio 21.1 RATIO (10-20); Calcium,Total 9.2 mg/dL (8.5-10.1); Chloride 108 mmol/L (98-107); Creatinine, Serum 1.09 mg/dL (0.70-1.30); EST Glomerular Filtration Rate 71 mL/min (>60); Est Glom Filt Rate - Afr Amer 86 mL/min (>60); Estimated Creatinine Clearance 70.85 ml/min; Glucose 123 mg/dL (74-106); Potassium 4.2 mmol/L (3.5-5.1); Sodium Level 140 mmol/L (136-145)
[2024-07-11 06:42] LABS: Troponin-I HS 8 pg/mL (3.0-78.0)
[2024-07-11] MEDS: Lisinopril 10 MG Tablet PO (07:55)
[2024-07-11] MEDS: Aspirin 81 MG TAB.CHEW PO (07:55)
[2024-07-11] MEDS: 0.9% Saline Lock 10 ML Syringe IV (07:55)
[2024-07-11] MEDS: Furosemide 20 MG Tablet PO (10:25)
[2024-07-11] MEDS: Tamsulosin HCl 0.4 MG Capsule PO (10:25)
[2024-07-11] MEDS: Potassium Chloride Oral Tablet 10 MEQ PO (10:25)
[2024-07-11] MEDS: Fenofibrate 145 MG Tablet PO (10:26)
[2024-07-11] MEDS: Ranolazine 500 MG Tablet 1000 MG PO (10:26)
[2024-07-11] MEDS: Metoprolol Tartrate 25 MG Tablet PO (10:28)
[2024-07-11] MEDS: Gabapentin 100 MG Capsule PO (10:56)
--- NOTE | 2024-07-11 11:31 | STRESSREP ---
Stress Test Report Exercise myocardial perfusion stress test. 69-year-old male with a history of chest pain Stress protocol: Resting EKG demonstrates normal sinus rhythm with a rate of 55 bpm resting blood pressure is 150/92 mmHg. The patient exercised according to the regular [place] protocol for a total duration of 3 minutes attaining a maximum heart rate of 144 bpm which was 100% of maximum predicted heart rate; the maximum workload was 4.6 metabolic equivalents. At rest there were no ST or T wave changes noted to suggest ischemia and at peak exercise upsloping ST changes only were noted which did not meet the criteria for ischemia. No clinical angina was noted the test was terminated due to the target heart rate being achieved/fatigue. The peak blood pressure was 204/92 mmHg. Myocardial perfusion protocol. 14.8 mCi of technetium 99m sestamibi was injected at rest. The patient exercised according to regular Vinicio protocol for total duration of 3 minutes and at peak exercise 45 mCi of technetium 99m sestamibi was injected stress images were obtained stress and rest images were reconstructed in comparing the short axis vertical long and horizontal long axis. Gated images were also obtained. Perfusion SPECT analysis: Review of the stress images demonstrate normal uptake of tracer noted in all areas of the myocardium. The resting images similarly demonstrate normal uptake of tracer noted in all areas of the myocardium. No areas of reversibility are noted to suggest ischemia no previous infarct was noted. Gated SPECT analysis: The gated ejection fraction is 77%. Conclusion: Normal exercise myocardial perfusion stress test at a low workload Preserved ejection fraction.
[2024-07-11] MEDS: glipiZIDE 2.5 MG TAB.ER.24 PO (12:15)
[2024-07-11] MEDS: metFORMIN HCl 1,000 MG Tablet 1000 MG PO (12:15)
[2024-07-11] MEDS: Empagliflozin 25 MG Tablet PO (12:15)
[2024-07-11] MEDS: Enoxaparin 40 MG/0.4 ML Syringe SC (12:15)
[2024-07-11 12:38] LABS: Bedside Glucose 169 mg/dL (74-106)
[2024-07-11] MEDS: Magnesium Chloride 64 MG Delay Rel.Tablet 128 MG PO (12:52)
--- NOTE | 2024-07-11 13:30 | PCM.DC.SUM ---
Providers Date of Admission: 07/11/24 Date of Discharge: 07/11/24 Primary Care Physician: Dr. Grant Krause MD Reason For Visit: CHEST PAIN WITH LEFT ARM PAIN Diagnosis Discharge Diagnosis (1) History of left heart catheterization (LHC): Status: Acute Code(s): Z98.890 - Other specified postprocedural states (2) Presence of stent in coronary artery: Status: Chronic Code(s): Z95.5 - Presence of coronary angioplasty implant and graft (3) Pure hypercholesterolemia: Status: Chronic Code(s): E78.00 - Pure hypercholesterolemia, unspecified (4) Essential hypertension: Status: Chronic Code(s): I10 - Essential (primary) hypertension (5) Chest pain: Status: Acute Code(s): R07.9 - Chest pain, unspecified Qualifiers: Chest pain type: unspecified Qualified Code(s): R07.9 - Chest pain, unspecified (6) Type II diabetes mellitus: Status: Chronic Code(s): E11.9 - Type 2 diabetes mellitus without complications (7) Obesity (BMI 30.0-34.9): Status: Chronic Code(s): E66.9 - Obesity, unspecified (8) ALBAN on CPAP: Status: Chronic Code(s): G47.33 - Obstructive sleep apnea (adult) (pediatric); Z99.89 - Dependence on other enabling machines and devices Medications at Discharge Home Medications aspirin 81 mg chewable tablet 81 mg PO DAILY@0800 07/20/15 nitroglycerin 0.4 mg sublingual tablet 0.4 mg sublingual Q5M PRN Chest Pain #25 tabs 07/23/15 tamsulosin 0.4 mg capsule 0.4 mg PO DAILY 09/08/16 fenofibrate 160 mg tablet 160 mg PO DAILY 09/10/16 albuterol sulfate 90 mcg/actuation aerosol inhaler (ProAir HFA) 2 puff inhalation Q6H PRN Shortness Of Breath Or Wheezing 10/30/20 lisinopril 10 mg tablet 10 mg PO DAILY 10/30/20 metoprolol tartrate 25 mg tablet 25 mg PO BID 05/08/21 empagliflozin 25 mg tablet (Jardiance) 25 mg PO DAILY 12/04/21 metformin 500 mg tablet 1,000 mg PO BID 12/04/21 rosuvastatin 40 mg tablet 40 mg PO DAILY 12/04/21 glipizide 2.5 mg tablet, extended release 24 hr 2.5 mg PO DAILY 05/14/23 ranolazine 1,000 mg tablet,extended release,12 hr (Ranexa) 1,000 mg PO BID #180 tabs 07/09/23 furosemide 20 mg tablet 20 mg PO DAILY #90 tabs 12/06/23 gabapentin 100 mg capsule 100 mg PO BID 12/06/23 potassium chloride 10 mEq tablet,extended release 10 meq PO DAILY #90 tabs 12/06/23 sildenafil 50 mg tablet (Viagra) 50 mg PO QDAY PRN sexual activity 06/06/24 Hospital Course Operations None Procedures Stress test Summary of Care Provided Minutes Spent on Discharge: 45 Hospital Course: Patient is a 69 y/o male with a PMH as outlined who was admitted via the ED on 07/11/2024 with a complaint of chest pain. The chest pain radiated to the left side of his chest and symptoms started on the evening of admission. He said the pain felt like how he had previously felt when he had his acute coronary syndrome. Review of symptoms otherwise negative. Troponins x 3 were negative. He was admitted to be managed for chest pain to rule out ACS. He had stress test on 07/11/2024 which showed no evidence of ischemia. Patient felt much better and was discharged home on 07/11/2024. He is follow-up with his primary care doctor within 1 to 2 weeks. Patient seen and examined prior to discharge. He felt well and had no complaints. He had an uneventful night. Review of systems otherwise negative. Labs and vitals reviewed. Home medications reviewed and reconciled. Physical Exam Const alert, oriented x3 and no apparent distress General Appearance: cooperative, comfortable and well kempt Exam Limitations: no limitations HEENT normocephalic, head/scalp atraumatic, hearing grossly normal bilaterally and moist oral mucous membranes Mouth: oral and palatal mucosa normal Eyes PERRL, EOMs intact bilaterally and conjunctivae normal Neck no lymphadenopathy and supple Resp normal respiratory effort, no retractions, no use of accessory muscles and clear to auscultation bilaterally Cardio regular rate, regular rhythm, S1 normal heart sound, S2 normal heart sound and no murmurs GI normal to inspection, nondistended, normoactive bowel sounds, soft to palpation, non-tender and non-distended Extremity normal to inspection, full ROM and no clubbing, cyanosis or edema Skin no rashes or lesions noted and no wounds Neuro oriented x3, CN's II-XII intact bilaterally and moves all extremities Sensorium / Orientation: awake and alert Motor Exam: strength 5/5 throughout Psych affect normal Weight / BMI Weight Weight: 225 lb 8.526 oz Body Mass Index (BMI) 35.3 ABG / Lab / Microbiology Data 07/11/24 05:48 07/11/24 05:48 Laboratory: Laboratory Results - last 24 hr 07/11/24 00:31: WBC 7.8, RBC 4.47 L, Hgb 14.2, Hct 44.0, MCV 98.4 H, MCH 31.8, MCHC 32.3, RDW Std Deviation 48.2 H, RDW Coeff of Marlen 13.3, Plt Count 292, MPV 10.3, Immature Gran % (Auto) 0.500, Neut % (Auto) 64.2, Lymph % (Auto) 22.3, [place] % (Auto) 9.6, Eos % (Auto) 2.9, Baso % (Auto) 0.5, Absolute Neuts (auto) 5.0, Absolute Lymphs (auto) 1.75, Nucleated RBC % 0, Sodium 140, Potassium 4.1, Chloride 107, Carbon Dioxide 27.0, Anion Gap 6, BUN 22 H, Creatinine 1.23, Estim Creat Clear Calc 63.59, Est GFR (MDRD) Af Amer 75, Est GFR (MDRD) Non-Af 62, BUN/Creatinine Ratio 17.9, Glucose 166 H, Calcium 9.0, Magnesium 1.9, Troponin I High Sens 4 07/11/24 02:43: Troponin I High Sens 5 07/11/24 05:48: WBC 7.4, RBC 4.27 L, Hgb 13.7, Hct 42.1, MCV 98.6 H, MCH 32.1 H, MCHC 32.5, RDW Std Deviation 47.9 H, RDW Coeff of [place] 13.4, Plt Count 279, MPV 10.4, Immature Gran % (Auto) 0.500, Neut % (Auto) 56.0, Lymph % (Auto) 29.0, [place] % (Auto) 10.0, Eos % (Auto) 3.8, Baso % (Auto) 0.7, Absolute Neuts (auto) 4.1, Absolute Lymphs (auto) 2.14, Nucleated RBC % 0, Sodium 140, Potassium 4.2, Chloride 108 H, Carbon Dioxide 27.0, Anion Gap 4 L, BUN 23 H, Creatinine 1.09, Estim Creat Clear Calc 70.85, Est GFR (MDRD) Af Amer 86, Est GFR (MDRD) Non-Af 71, BUN/Creatinine Ratio 21.1 H, Glucose 123 H, Calcium 9.2, Troponin I High Sens 8 07/11/24 12:12: POC Glucose 169 H Radiography Diagnostic Testing: Radiology Impression Chest X-Ray 07/11/24 00:43 IMPRESSION: Likely bibasilar linear scar formation with no acute cardiopulmonary disease Electronically Signed: Rudolph Ambrosio MD at 1:44 EDT , D/C Instructions Discharge Diet: Low fat / Low cholesterol Discharge Activity: Return to Normal Activity Weight Bearing Status: Weight bearing as tolerated Call your doctor if you observe: Fever of 101 or Higher, Shortness of breath, Dizziness, Swelling in the ankles and Chest pain Meaningful Use Info Meaningful Use Meaningful Use Diagnoses (Choose all that apply): None applicable Ischemic Stroke Statin Dosing Therapy Reference: STATIN DOSE THERAPY REFERENCE: * Patients > 75 years receive moderate or high dose statin therapy. * Patients 75 years or YOUNGER should receive HIGH intensity statin dose unless contraindicated. You will be required to document reason for non-treatment if statin daily dose does not meet guidelines. HIGH DOSE STATIN THERAPY DAILY Atorvastatin > than or = to 40 mg Rosuvastatin > than or = to 20 mg Amlodipine + Atorvastatin > than or = to 2.5/40 mg Ezetimibe + Simvastatin 10/80 mg Simvastatin 80mg Discharge Plan Admission Admit Date/Time: 07/11/24 03:57 Primary Reason for Your Visit: chest pain Attending Provider: Quyen Broussard Primary Care Provider: Grant Krause Consulting Providers: Chirag Cristina Instructions Patient Instructions: ED Chest Pain, Noncardiac Discharge Orders/Prescriptions Prescriptions: Continued lisinopril 10 mg tablet 10 mg PO DAILY albuterol sulfate [ProAir HFA] 90 mcg/actuation HFA aerosol inhaler 2 puff INHALATION Q6H PRN (Reason: Shortness Of Breath Or Wheezing) rosuvastatin 40 mg tablet 40 mg PO DAILY Jardiance 25 mg tablet 25 mg PO DAILY glipizide 2.5 mg tablet extended release 24hr 2.5 mg PO DAILY Patient Comments: Take 1 tablet by mouth once daily. gabapentin 100 mg capsule 100 mg PO BID furosemide 20 mg tablet 20 mg PO DAILY Qty: 90 3RF potassium chloride 10 mEq tablet extended release 10 meq PO DAILY Qty: 90 3RF sildenafil [Viagra] 50 mg tablet 50 mg PO QDAY PRN (Reason: sexual activity) Rx Instructions: administer 30 minutes to 4 hours before activity aspirin 81 MG tablet,chewable 81 mg PO DAILY@0800 Patient Comments: antiplatelet nitroglycerin 0.4 MG tablet 0.4 mg SUBLINGUAL Q5M PRN (Reason: Chest Pain) Qty: 25 0RF Patient Comments: CHEST PAIN tamsulosin 0.4 MG capsule 0.4 mg PO DAILY fenofibrate 160 MG tablet 160 mg PO DAILY metoprolol tartrate 25 mg tablet 25 mg PO BID metformin 500 mg tablet 1,000 mg PO BID ranolazine [Ranexa] 1,000 mg tablet extended release 12 hr 1,000 mg PO BID Qty: 180 4RF Referrals / Follow Up: Grant Krause MD [Primary Care Provider] - Within 1 Week Disposition Disposition (needs filled in before D/C Order can be placed): Home, Self Care Charges/Coding Visit Charges Inpatient E&M: 34304 Disch Hosp >30min
--- NOTE | 2024-07-11 14:05 | DCINST_ITS ---
Discharge Instructions Diet Discharge Diet: Low fat / Low cholesterol Activity Discharge Activity: Return to Normal Activity Weight Bearing Status: Weight bearing as tolerated Dressing / Incision Call your doctor if you observe: Fever of 101 or Higher, Shortness of breath, Dizziness, Swelling in the ankles and Chest pain Follow Up Care Test Results: Test results from this visit will be discussed in further detail at your follow- up appointment, if applicable. Discharge Plan Admission Admit Date/Time: 07/11/24 03:57 Primary Reason for Your Visit: chest pain Attending Provider: Quyen Broussard Primary Care Provider: Grant Krause Consulting Providers: Chirag Cristina Instructions Patient Instructions: ED Chest Pain, Noncardiac Discharge Orders/Prescriptions Prescriptions: Continued lisinopril 10 mg tablet 10 mg PO DAILY albuterol sulfate [ProAir HFA] 90 mcg/actuation HFA aerosol inhaler 2 puff INHALATION Q6H PRN (Reason: Shortness Of Breath Or Wheezing) rosuvastatin 40 mg tablet 40 mg PO DAILY Jardiance 25 mg tablet 25 mg PO DAILY glipizide 2.5 mg tablet extended release 24hr 2.5 mg PO DAILY Patient Comments: Take 1 tablet by mouth once daily. gabapentin 100 mg capsule 100 mg PO BID furosemide 20 mg tablet 20 mg PO DAILY Qty: 90 3RF potassium chloride 10 mEq tablet extended release 10 meq PO DAILY Qty: 90 3RF sildenafil [Viagra] 50 mg tablet 50 mg PO QDAY PRN (Reason: sexual activity) Rx Instructions: administer 30 minutes to 4 hours before activity aspirin 81 MG tablet,chewable 81 mg PO DAILY@0800 Patient Comments: antiplatelet nitroglycerin 0.4 MG tablet 0.4 mg SUBLINGUAL Q5M PRN (Reason: Chest Pain) Qty: 25 0RF Patient Comments: CHEST PAIN tamsulosin 0.4 MG capsule 0.4 mg PO DAILY fenofibrate 160 MG tablet 160 mg PO DAILY metoprolol tartrate 25 mg tablet 25 mg PO BID metformin 500 mg tablet 1,000 mg PO BID ranolazine [Ranexa] 1,000 mg tablet extended release 12 hr 1,000 mg PO BID Qty: 180 4RF Referrals / Follow Up: Grant Krause MD [Primary Care Provider] - Within 1 Week Disposition Disposition (needs filled in before D/C Order can be placed): Home, Self Care
--- NOTE | 2024-07-11 14:22 | PHA.DC_ITS ---
Pharmacy [facility] Reconciliation Pharmacy Service has performed discharge medication reconciliation for this patient. The patient's discharge medication list was reviewed for discrepancies and discrepancies were resolved. Medications at Discharge Home Medications aspirin 81 mg chewable tablet 81 mg PO DAILY@0800 07/20/15 nitroglycerin 0.4 mg sublingual tablet 0.4 mg sublingual Q5M PRN Chest Pain #25 tabs 07/23/15 tamsulosin 0.4 mg capsule 0.4 mg PO DAILY 09/08/16 fenofibrate 160 mg tablet 160 mg PO DAILY 09/10/16 albuterol sulfate 90 mcg/actuation aerosol inhaler (ProAir HFA) 2 puff inhalation Q6H PRN Shortness Of Breath Or Wheezing 10/30/20 lisinopril 10 mg tablet 10 mg PO DAILY 10/30/20 metoprolol tartrate 25 mg tablet 25 mg PO BID 05/08/21 empagliflozin 25 mg tablet (Jardiance) 25 mg PO DAILY 12/04/21 metformin 500 mg tablet 1,000 mg PO BID 12/04/21 rosuvastatin 40 mg tablet 40 mg PO DAILY 12/04/21 glipizide 2.5 mg tablet, extended release 24 hr 2.5 mg PO DAILY 05/14/23 ranolazine 1,000 mg tablet,extended release,12 hr (Ranexa) 1,000 mg PO BID #180 tabs 07/09/23 furosemide 20 mg tablet 20 mg PO DAILY #90 tabs 12/06/23 gabapentin 100 mg capsule 100 mg PO BID 12/06/23 potassium chloride 10 mEq tablet,extended release 10 meq PO DAILY #90 tabs 12/06/23 sildenafil 50 mg tablet (Viagra) 50 mg PO QDAY PRN sexual activity 06/06/24
--- NOTE | 2024-07-11 14:32 | CASEMGMT ---
Patient has order for discharge. RN CM in to discuss needs at discharge. Patient denies needs or help at discharge. Patient had no further questions or concerns.
--- NOTE | 2024-07-11 14:39 | CHAPLAIN ---
Type of Pastoral Visit _x__ Initial Visit ___ Follow-up Visit ___ On-call Visit ___ General Patient Visit ___ Spiritual Assessment ___ Family Conference ___ Bereavement ___ Rapid Response ___ Code Blue ___ Other (describe below) Pastoral Care Referral From _x__ Patient ___ Family ___ Nurse ___ Physician ___ Fitting Room Associate ___ [employer] ___ Other (describe below) Sacrament/Intervention _x__ Active listening ___ Anointing ___ Taoism ___ Bereavement ___ Communion ___ Beatrice exploration ___ _x__ Life review _x__ Prayer ___ Reconciliation ___ Sacrament of Sick _x__ Supportive presence ___ Wedding ___ Other (describe below) Pastoral Comments patient and his friend are in the room together; both are talkative and expressive of their thoughts; both engage in a longer conversation about life, work, locations, and the country; pt acknowledges his intent of going back to [place] and he welcomes a prayer to be given; pt goal is finding out test results and going home; pt did not have further requests or concerns
[2024-07-18 18:08] LABS: BNP,B-Type NATRIURETIC PEPTIDE 77.5 pg/mL (0.0-100.0)
== END 2024-07-11 14:04 | disposition home or self-care (01) ==
LOC: ED 03:25 → PCU 04:12
PROVIDERS: Admitting Provider Family Medicine; Emergency Provider Surgery; PCP Internal Medicine; Visit Provider Student in an Organized Health Care Education/Training Program
DX: R07.89 Other chest pain (principal); E11.9 Type 2 diabetes mellitus without complications; Z86.73 Personal history of transient ischemic attack (TIA), and cerebral infarction without residual deficits; G47.33 Obstructive sleep apnea (adult) (pediatric); M79.602 Pain in left arm; Z79.84 Long term (current) use of oral hypoglycemic drugs; I10 Essential (primary) hypertension; Z79.82 Long term (current) use of aspirin; Z95.5 Presence of coronary angioplasty implant and graft; I25.10 Atherosclerotic heart disease of native coronary artery without angina pectoris; E78.00 Pure hypercholesterolemia, unspecified; E66.9 Obesity, unspecified; Z79.899 Other long term (current) drug therapy; Z68.36 Body mass index [BMI] 36.0-36.9, adult
CPT/HCPCS: 36415; 71045; 78452; 80048; 82962; 83735; 83880; 84484; 85025; 93005; 93017; 96372; 99221; 99285; A9500; A4216; G0378

== ENCOUNTER → 2025-05-09 | Outpatient (CLI) | payer MEDICARE, MEDICAID, SELFPAY | END | disposition home or self-care (01) | LOC: SL 20:01 | PROVIDERS: PCP Internal Medicine; Referring Provider Nurse Practitioner Adult Health; Visit Provider Nurse Practitioner Adult Health | DX: G47.33 Obstructive sleep apnea (adult) (pediatric) (principal) | CPT/HCPCS: 95810 ==

== ENCOUNTER 2025-09-23 00:47 | Emergency (ER) | payer MEDICARE, MEDICAID, SELFPAY ==
[2025-09-23 00:48] VITALS: BP 156/111; PULSE 103; RESP 22; TEMP 36.4; O2SAT 97; BMI 34.4
[2025-09-23 00:51] VITALS: BP 156/111; PULSE 106; RESP 22; TEMP 36.4; O2SAT 96
--- NOTE | 2025-09-23 01:00 | EKG12_ITS ---
Test Reason : DYSRHYTHMIA Blood Pressure : */* mmHG Vent. Rate : 91 BPM Atrial Rate : 91 BPM P-R Int : 122 ms QRS Dur : 68 ms QT Int : 372 ms P-R-T Axes : 66 63 46 degrees QTcB Int : 457 ms Normal sinus rhythm Nonspecific ST abnormality Abnormal ECG Confirmed by Taran Chne ([id number]), editor & co founder BORIS BILL ([id number]) on 09/25/2025 10:02:45 AM Referred By: Confirmed By: Taran Chen
[2025-09-23] MEDS: 0.9% Normal Saline (1000mL) 1,000 ML 1000 ML IV (01:21)
--- NOTE | 2025-09-23 01:24 | EDS_ITS ---
HPI History of Present Illness Chief Complaint: General Illness Narrative Narrative: Patient was seen and examined after presenting to ED for nausea cough congestion body aches roommate has similar symptoms. [facility] Medical History Obesity (BMI 30.0-34.9) Tinnitus COVID-19 virus infection Leg edema, left ALBNA on CPAP Presence of stent in coronary artery (~04/05/12) Pure hypercholesterolemia Essential hypertension Atherosclerotic heart disease of [place] coronary artery without angina pectoris Chest pain Type II diabetes mellitus Hyperlipidemia Hypertension Home Medications ?Medication ?Instructions ?Recorded ?Last Taken ?Type aspirin 81 mg chewable tablet 81 mg PO DAILY@0800 hear [facility] 07/20/15 05/26/22 History nitroglycerin 0.4 mg sublingual 0.4 mg sublingual Q5M PRN Chest 07/23/15 01/03/19 Rx tablet Pain #25 tabs tamsulosin 0.4 mg capsule 0.4 mg PO DAILY 09/08/1606/15 History fenofibrate 160 mg tablet 160 mg PO DAILY cholesterol 09/10/16 01/03/19 History albuterol sulfate 90 mcg/actuation 2 puff inhalation Q 6H PRN 10/30/20 Unknown History aerosol inhaler (ProAir HFA) Shortness Of Breath Or Wh eezing lisinopril 10 mg tablet 10 mg PO DAILY blood pressur e 10/30/20 05/26/22 History metoprolol tartrate 25 mg tablet 25 mg PO BID blood pr essure 05/08/21 05/26/22 History empagliflozin 25 mg tablet 25 mg PO DAILY diabetes 07/18 Unknown History (Jardiance) metformin 500 mg tablet 1,000 mg PO BID diabetes 07/1805/25/22 History rosuvastatin 40 mg tablet 40 mg PO DAILY cholesterol 0 12/04/21 Unknown History glipizide 2.5 mg tablet, extended 2.5 mg PO DAILY diab etes 05/14/23 Unknown History release 24 hr gabapentin 100 mg capsule 100 mg PO BID nerve pain 08/20 Unknown History sildenafil 50 mg tablet (Viagra) 50 mg PO QDAY PRN sex ual activity 06/06/24 Unknown History ranolazine 1,000 mg 1,000 mg PO BID #180 tabs Unknown Rx tablet,extended release,12 hr potassium chloride 10 mEq 10 meq PO DAILY #90 TABLETS 10/18/24 Unknown Rx tablet,extended release furosemide 20 mg tablet 20 mg PO DAILY #30 TABLETS 1 11/08/24 Unknown Rx Allergy/AdvReac Type Severity Reaction Status Date / Time No Known Allergies Allergy Verified 09/23/25 00:49 Family History Sister Hypertension Surgical History History of left heart catheterization (LHC) (~05/26/22) History of umbilical hernia repair Presence of coronary angioplasty implant and graft (~04/05/12) Social History Smoking Status: Never smoker alcohol intake: former substance use type: former substance user Date of last use: stopped marijuana caffeine: Yes ROS ROS ED ROS Narrative Pertinent Positives: Nausea cough congestion body aches fevers diarrhea Pertinent Negatives: Chest pain or pressure shortness of breath vomiting The remainder of review of systems negative unless otherwise stated in the HPI above. Systems reviewed including constitutional, psychiatric, cardiovascular, respiratory, integument, HENT, gastrointestinal. EXAM Physical Exam Narrative Exam Narrative: Afebrile he is hemodynamically stable does not appear toxic or in distress normal range of motion of head and neck normal heart and lung sounds abdomen is soft nontender nondistended no palpable pulsatile mass he has intact and equal MSPs in his extremities. Const Vital Signs: 09/23/25 00:48 09/23/25 00:48 09/23/25 00:51 Temperature 97.6 F L 97.6 F L Temperature Source Oral Oral Pulse Rate 103 H 106 H Respiratory Rate 22 H 22 H Respiratory Effort Normal Respiratory Pattern Tachypnea Blood Pressure 156/111 H 156/111 H Blood Pressure Mean 126 126 Pulse Ox 97 96 Oxygen Delivery Method Room Air Room Air 09/23/25 01:51 09/23/25 02:00 09/23/25 02:48 Temperature 97.6 F L 97.6 F L Temperature Source Oral Oral Pulse Rate 87 92 86 Respiratory Rate 18 18 18 Respiratory Effort Respiratory Pattern Blood Pressure 130/77 H 133/88 H 132/94 H Blood Pressure Mean 94 103 106 Pulse Ox 92 96 93 Oxygen Delivery Method Room Air Room Air Room Air 09/23/25 03:04 Temperature 97.6 F L Temperature Source Pulse Rate 84 Respiratory Rate 18 Respiratory Effort Respiratory Pattern Blood Pressure 132/94 H Blood Pressure Mean 106 Pulse Ox 95 Oxygen Delivery Method MDM MDM MDM Narrative Medical decision making narrative: Nursing notes, triage notes, available previous documentation, and vital signs were reviewed. Any discrepancies noted were addressed. Differential Diagnoses: Viral syndrome will evaluate for pneumonia or UTI could be a gastroenteritis picture as well Interventions: Zofran Fluids Given: 1 L normal saline Labs Reviewed: No leukocytosis leukopenia anemia electrolyte abnormality or kunal l insufficiency or significant transaminitis troponin was 18 patient patient is positive for influenza A Imaging Reviewed: Personally reviewed and interpreted by me: Chest x-ray no significant pneumonia edema widened mediastinum or pneumothoraces EKG: Normal sinus rhythm rate of [address] segment elevation. EKG interpretation is noted and agreed to in the EMR. The interpretation of this patient's EKG contributed directly to the care and management of this patient. Previous Documentation Reviewed: None available or applicable at this time. ED Course: Patient presenting with symptoms that are consistent with a viral process we will have her evaluate for bacterial pneumonia as well as a urine infection patient given Zofran and IV fluids we will reassess. 0309: Patient is positive for influenza A he was up and ambulatory did not desaturate he appears to be doing well overall he is stable for discharge home return precautions follow-up recommendations provided This note was made utilizing voice recognition software. All attempts were made to correct spelling or other errors prior to note completion. However, due to the fast-paced nature of emergency medicine, some errors may still be present. Lab Data Labs: Laboratory Results - last 24 hr 09/23/25 01:18 WBC 5.2 RBC 4.95 Hgb 15.2 Hct 47.8 MCV 96.6 H MCH 30.7 MCHC 31.8 L RDW Std Deviation 46.4 H RDW Coeff of Marlen 13.1 Plt Count 225 MPV 10.3 Immature Gran % (Auto) 0.200 Neut % (Auto) 61.3 Lymph % (Auto) 22.6 [place] % (Auto) 13.4 H Eos % (Auto) 1.9 Baso % (Auto) 0.6 Absolute Neuts (auto) 3.2 Absolute Lymphs (auto) 1.18 Nucleated RBC % 0 Sodium 138 Potassium 4.5 Chloride 100 Carbon Dioxide 25.6 Anion Gap 12 BUN 22 H Creatinine 1.09 Estim Creat Clear Calc 68.92 Est GFR (MDRD) Non-Af 72 BUN/Creatinine Ratio 20.2 H Glucose 213 H Calcium 9.4 Total Bilirubin 0.54 AST 54 H ALT 32 Alkaline Phosphatase 46 Troponin T High Sens 18 Total Protein 6.7 Albumin 3.5 Globulin 3.2 Albumin/Globulin Ratio 1.1 Discharge Plan Triage Chief Complaint: General Illness ED Provider: Aleksandra Diaz Dx/Rx/DC Orders Clinical Impression: Myalgia, Nausea, Diarrhea, Acute viral syndrome, Influenza A Instructions: ED Viral Syndrome (Adult) Prescriptions: No Action lisinopril 10 mg tablet 10 mg PO DAILY albuterol sulfate [ProAir HFA] 90 mcg/actuation HFA aerosol inhaler 2 puff INHALATION Q6H PRN (Reason: Shortness Of Breath Or Wheezing) rosuvastatin 40 mg tablet 40 mg PO DAILY Jardiance 25 mg tablet 25 mg PO DAILY glipizide 2.5 mg tablet extended release 24hr 2.5 mg PO DAILY Patient Comments: Take 1 tablet by mouth once daily. gabapentin 100 mg capsule 100 mg PO BID sildenafil [Viagra] 50 mg tablet 50 mg PO QDAY PRN (Reason: sexual activity) Rx Instructions: administer 30 minutes to 4 hours before activity aspirin 81 MG tablet,chewable 81 mg PO DAILY@0800 Patient Comments: antiplatelet nitroglycerin 0.4 MG tablet 0.4 mg SUBLINGUAL Q5M PRN (Reason: Chest Pain) Qty: 25 0RF Patient Comments: CHEST PAIN tamsulosin 0.4 MG capsule 0.4 mg PO DAILY fenofibrate 160 MG tablet 160 mg PO DAILY metoprolol tartrate 25 mg tablet 25 mg PO BID metformin 500 mg tablet 1,000 mg PO BID ranolazine 1,000 mg tablet extended release 12 hr 1,000 mg PO BID Qty: 180 4RF potassium chloride 10 mEq tablet extended release 10 meq PO DAILY Qty: 90 3RF furosemide 20 mg tablet 20 mg PO DAILY Qty: 30 1RF Primary Care Provider: Grant Krause Referrals: Grant Krause MD [Primary Care Provider, Internal Medicine] Activity Restrictions/Additional Instructions: You have influenza A treatment for it is Tylenol ibuprofen if you can take it and making sure that you are staying hydrated please follow-up with your doctor please return if you are getting worse Print Language: Divehi Disposition Disposition: Home, Self Care
--- NOTE | 2025-09-23 01:34 | RAD_ITS ---
PROCEDURE: CHEST PA AND LATERAL 09/22/2025 REASON FOR EXAM: COUGH TECHNIQUE: Procedure Code: RADCXR Modality: DX Procedure: CHEST PA AND LATERAL COMPARISON: Chest x-ray 07/11/2024 FINDINGS: Hardware: None. Heart: The heart size is normal. Mediastinum: The mediastinal contour is unremarkable. Lungs: The lungs are clear. No pneumothorax or pleural effusion. Bones: The bones are unremarkable. RAD/Chest PA and Lateral IMPRESSION: NO ACUTE FINDINGS. Reading [facility]
[2025-09-23 01:40] LABS: Hematocrit 47.8 % (40-54); Hemoglobin 15.2 g/dL (13.0-16.5); Immature Granulocytes Count 0.010 X10^3/uL (0.0-0.0); Mean Corp Hgb Conc 31.8 g/dL (32-36); Mean Corpuscular Volume 96.6 fL (80-94); Mean Platelet Vol. 10.3 fl (6.2-12.0); NRBC Flagged by Analyzer 0 % (0-5); Platelet Count 225 K/mm3 (150-450); RBC Distribution Width CV 13.1 % (11.6-14.6); RBC Distribution Width SD 46.4 fl (35.1-43.9); Red Blood Count 4.95 M/mm3 (4.6-6.2); White Blood Count 5.2 K/mm3 (4.4-11.0)
[2025-09-23 01:51] VITALS: BP 130/77; PULSE 87; RESP 18; TEMP 36.4; O2SAT 92
[2025-09-23 02:00] VITALS: BP 133/88; PULSE 92; RESP 18; TEMP 36.4; O2SAT 96
[2025-09-23 02:15] LABS: AST(SGOT) 54 U/L (<=37); Alanine Aminotransfer ALT/SGPT 32 U/L (<=46); Albumin, Serum 3.5 g/dL (3.4-4.8); Alkaline Phosphatase 46 U/L (40-129); Anion Gap 12 (7-18); BUN 22 mg/dL (4-19); BUN/Creat Ratio 20.2 RATIO (10-20); Calcium,Total 9.4 mg/dL (7.6-11.0); Carbon Dioxide 25.6 mmol/L (20.0-29.0); Chloride 100 mmol/L (96-106); Estimated Creatinine Clearance 68.92 ml/min (50-250); Globulin 3.2 g/dL (2.2-4.2); Glucose 213 mg/dL (70-99); Potassium 4.5 mmol/L (3.5-5.1)
--- OUTSIDE RECORDS SUMMARY | 2025-09-23 02:15 | XMS RPT_ITS | CCD ---
Demographics Address [address] [place] [address] Home Phone Preferred Language en Marital Status Single Druze Affiliation Unknown Race White Ethnic Group Not or Lati no Author Organization [facility] Care Team Providers Care Jeweler Apprentice Name Role Phone Marleen James Unavailable Unavailable Linda RN, Jovita Yates Unavailable Unavailable Grant Krause MD Primary Care Provider Alysia, [place] S Unavailable Dr. Grant Krause Primary Care Provider Hortencia Mathis Attending Provider Unavailable Dr. Grant Krause Referring Provider Roof SENIOR ORACLE DATABASE DEVELOPER, SENIOR ORACLE DATABASE DEVELOPER-Carmen Chao Attending Provider Dr. Grant Krause Primary Care Provider Dr. Grant Krause Referring Provider Dr. Chirag Barakat Attending Provider Dr. Chirag Barakat Referring Provider Dr. Chirag Barakat Other Provider Roof SENIOR ORACLE DATABASE DEVELOPER, IVELISSE-Carmen Chao Attending Provider Grant Krause MD Primary Care Provider Alysia, Mo S Unavailable Alysia, Mo S Unavailable Grant Krause MD Primary Care Provider Alysia, [place] S Unavailable Dr. Grant Krause Primary Care Provider Rosana Shirley Attending Provider Unavailable Dr. Grant Krause Referring Provider Dr. Chirag Barakat Attending Provider Alysia [place] S Unavailable Dr. Grant Krause Primary Care Provider Jimi, Dr. Burns Referring Provider Roof SENIOR ORACLE DATABASE DEVELOPER, SENIOR ORACLE DATABASE DEVELOPER-C Nagi Chao Attending Provider Alysia FRENCH, Mo S Unavailable Dr. Grant Krause Primary Care Provider Dr. Grant Krause Referring Provider Art, Dr. Mancera Attending Provider Jimi FRENCH, Grant Chao Primary Care Provider Mary WHALEN.Liat ROJAS Unavailable Jimi FRENCH, Dr. Burns Primary Care Provider Nathan SENIOR ORACLE DATABASE DEVELOPER-C, Tito Howell Attending Provider Nathan SENIOR ORACLE DATABASE DEVELOPER-C, Tito Howell Referring Provider Grant Krause Primary Care Unavailable Grant Krause Referring Unavailable ArtCalderon calabrese Attending Unavailable Jimi, Grant Primary Care Unavailable Chirag Cristina Attending Unavailable Alysia, [place] Attending Unavailable Jimi, Grant Primary Care Unavailable CristinaChirag Admitting Unavailable Chirag Cristina Consulting Unavailable Quyen Broussard Consulting Unavailable Grant Krause Primary Care Unavailable Calderon Cordova Attending Unavailable ArtCalderon calabrese Referring Unavailable Jimi, Grant Primary Care Unavailable Nathan SENIOR ORACLE DATABASE DEVELOPER, Tito M Attending Unavailable Nathan SENIOR ORACLE DATABASE DEVELOPER, Tito M Referring Unavailable Jimi, Grant Primary Care Unavailable Latishaam, Quyen Camilla Attending Unavailable CristinaChirag medeiros Admitting Unavailable CristinaChirag Consulting Unavailable GANTA, TERRI Referring Unavailable KRAUSE, QUENTIN Primary Care Unavailable JIMI, GRANT Chao Primary Care Unavailable LIAT SMITH Referring Unavailable GANTA, TERRI Attending Unavailable JIMI, QUENTIN Primary Care Unavailable GANTA, TERRI Referring Unavailable JIMI, GRANT Chao Primary Care Unavailable TESTRAKE, MARGARITO Attending Unavailable KRAUSE, QUENTIN Primary Care Unavailable SELF Referring Unavailable TERRI AGUIRRE Attending Unavailable KRAUSE, QUENTIN Primary Care Unavailable VETOVITZ, NILDA Referring Unavailable VETOVITZ, NILDA Attending Unavailable KRAUSE, QUENTIN Primary Care Unavailable NATHAN, TITO Attending Unavailable KRAUSE, QUENTIN Primary Care Unavailable KRAUSE, QUENTIN Referring Unavailable KRAUSE, QUENTIN Primary Care Unavailable TESTRAKE, MARGARITO Referring Unavailable TESTRAKE, MARGARITO Attending Unavailable KRAUSE, QUENTIN Primary Care Unavailable KRAUSE, QUENTIN Referring Unavailable NATHAN, TITO Attending Unavailable KRAUSE, QUENTIN Primary Care Unavailable VETOVITZ, NILDA Referring Unavailable VETOVITZ, NILDA Attending Unavailable KRAUSE, QUENTIN Primary Care Unavailable KRAUSE, QUENTIN Attending Unavailable KRAUSE, QUENTIN Primary Care Unavailable TESTRAKE, MARGARITO Referring Unavailable TESTRAKE, MARGARITO Attending Unavailable KRAUSE, QUENTIN Primary Care Unavailable KRAUSE, QUENTIN Attending Unavailable KRAUSE, QUENTIN Primary Care Unavailable VETOVITZ, NILDA Referring Unavailable VETOVITZ, NILDA Attending Unavailable KRAUSE, QUENTIN Primary Care Unavailable NATHAN, TITO Attending Unavailable KRAUSE, QUENTIN Primary Care Unavailable LIAT SMITH Attending Unavailable JIMI, QUENTIN Primary Care Unavailable LIAT SMITH Referring Unavailable KRAUSE, QUENTIN Primary Care Unavailable VETOVITZ, NILDA Referring Unavailable VETOVITZ, NILDA Attending Unavailable Medications Current Medications Medication Drug Class(es) Dates Sig (Normalized) Sig (Original) [id number] 200 actuat albuterol 0.09 mg/actuat metered dose inhaler (20 sources) beta2-Adrenergic Agonist Start: 01-14-2021 End: 10-24-2024 take 2 puff(s) by inhalation every six hours as needed for wheezing albuterol HFA (PROVENTIL HFA, VENTOLIN HFA) 90 mcg/actuation inhaler Indications: Wheezing Inhale 2 Puffs as instructed every 6 hours as needed for wheezing/shortnes s of breath. 18 g 2 10/24/2024 Active Start: 10-30-2020 Albuterol Sulf ate (Proair Hfa) 90 mcg/actuation HFA aerosol inhaler Active 2 NMA INHALATION EVERY 6 HOURS as needed for Shortness Of Breath Or Wheezing October 30, 2020 1:00am Start: 10-30-2020 take 1 puff(s) by in halation every six hours Albuterol Sulfate (Proair Hfa) 90 mcg/actuation HFA aerosol inhaler Active 2 PUFF INHALATION EVERY 6 HOURS October 30, 2020 1:00am Start: 01-03-2019 End: 12-04-2021 Albuterol Sulfate 1 PUFF inh aler Discontinued 1 - 2 NMA INHALATION EVERY 4 HOURS NEEDED as needed for Asthma January 03, 2019 12:00am December 04, 2021 5:42pm Start: 01-03-2019 End: 12-04-2021 take 1 puff(s) by inhalation every four hours as needed Albuterol Sulfate Discontinued 1 - 2 PUFF INHALATION EVERY 4 HOURS NEEDED January 03, 2019 12:00am December 04, 2021 5:42pm Comment on above: Inhale 2 Puffs as in structed every 6 hours as needed for Wheezing/Shortness of Breath. CPAP/BIPAP/OTHER (13 sources) Start: End: CPAP/BIPAP/OTHER Indications: ALBAN on CPAP Type .CPAPSettings into a note to see current settings/supplies/DM E information. 1 Each 11/02/2024 03/19/2052 Active empagliflozin 25 mg oral tablet (20 sources) Sodium-Glucose Cotransporter 2 Inhibitor Start: 022 End: take 1 tablet by mouth once daily, then take 1 tablet by mouth once daily in the morning empagliflozin (JARDIANCE) 25 mg tablet Indications: Controlled type 2 diabetes mellitus without complication, without long-term current use of insulin (HCC) Take 1 tablet by mouth once daily. Take 1 tablet once daily in the morning 90 tablet 3 11/02/2024 Active Comment on above: Take 1 tablet by luma th once daily. Take 1 tablet once daily in the morning fenofibrate 160 mg oral tablet (20 sources) Peroxisome Proliferator Receptor alpha Agonist Start: 016 End: 024 take 1 tablet by mouth once daily Fenofibrate (LOFIBRA) 160 mg tablet Indications: Mixed hyperlipidemia Take 1 tablet by mouth once daily. 90 tablet 3 06/16/2024 Active Comment on above: Take 1 tablet by luma once daily. furosemide 20 mg oral tablet (20 sources) Loop Diuretic Start: End: take 1 tablet by mouth once daily furosemide (LASIX) 20 mg tablet Take 1 tablet by mouth once daily[facility] 12/09/2023 Active Comment on above: Take 1 tablet by luma once daily. [facility] gabapentin 100 mg oral capsule (20 sources) Anti-epileptic Agent Start: End: take 1 capsule by mouth twice daily gabapentin (NEURONTIN) 100 mg capsule Indications: Oral dyskinesia Take 1 capsule by mouth two times a day for 180 days. Taking for tremors 180 capsule 1 04/10/2025 10/07/2025 Active Start: 05-14-2023 End: 12-06-2023 take 1 capsule by mouth once daily as needed Gabapentin 100 mg capsule Discontinued 100 mg PO DAILY as needed May 14, 2023 12:00am December 06, 2023 2:50pm Start: 09-25-2022 End: 06-14-2023 take 1 capsule by mouth twice daily gabapentin (NEURONTIN) 100 mg capsule Indications: Oral dyskinesia Take 1 capsule by mouth twice daily for 180 days. 180 capsule 1 12/16/2022 Active Comment on above: Take 1 capsule by [facility] twice daily for 90 days. Take 1 capsule by mo [facility] twice daily for 180 days. Take 1 capsule by mo [facility] two times a day for 180 days. glipiZIDE er 2.5 mg 24 hr extended release oral tablet (20 sources) Sulfonylurea Start: 3 End: take 1 tablet by mouth once daily glipiZIDE (GLUCOTROL XL) 2.5 mg 24 hr tablet Indications: Type 2 diabetes mellitus with stage 3a chronic kidney disease, without long-term current use of insulin (HCC) Take 1 tablet by mouth once daily. Taking Diabetes 30 tablet 5 04/10/2025 Active Comment on above: Take 1 tablet by luma once daily. lisinopril 10 mg oral tablet (20 sources) Angiotensin Converting Enzyme Inhibitor Start: End: take 1 tablet by mouth once daily lisinopril (ZESTRIL) 10 mg tablet Take 1 tablet by mouth once daily. 90 tablet 3 10/24/2024 Active Start: 09-08-2016 End: 10-30-2020 take 1 tablet by mouth once daily Lisinopril 5 MG tablet Discontinued 5 mg PO DAILY September 08, 2016 1:00am October 30, 2020 12:26pm Comment on above: Take 1 tablet by luma th once daily. metFORMIN hydrochloride 500 mg oral tablet (20 sources) Biguanide Start: take 1 tablet by mouth twice daily at mealtime metFORMIN (GLUCOPHAGE) 500 mg tablet Take 1 tablet by mouth two times a day with meals. . 04/10/2025 Active Start: 12-04-2021 take 1000 mg by mout h twice daily Metformin Active 1000 MG PO TWICE A DAY December 04, 2021 5:40pm Start: 05-08-2021 End: 12-04-2021 Metformin 500 mg tablet Discontinued 850 mg PO TWICE A DAY May 08, 2021 2:04pm December 04, 2021 5:42pm Start: 05-08-2021 End: 12-04-2021 take 850 mg by mouth twice daily Metformin Discontinue d 850 MG PO TWICE A DAY May 08, 2021 2:04pm December 04, 2021 5:42pm Start: 11-11-2020 End: 05-08-2021 take 1000 mg by mouth twice daily Metformin Discontinued 1000 MG PO TWICE A DAY November 11, 2020 1:00am May 08, 2021 2:05pm Start: 09-16-2020 End: 04-10-2025 take 2 tablets by mouth twice daily Metformin 500 mg tablet Discontinued 1000 mg PO TWICE A DAY November 11, 2020 1:00am May 08, 2021 2:05pm Start: 03-25-2020 End: 11-11-2020 take 1 tablet by mouth twice daily Metformin 850 mg tablet Discontinued 850 mg PO TWICE A DAY March 25, 2020 12:00am November 11, 2020 5:41pm Start: 07-22-2015 End: 03-25-2020 take 1 tablet by mouth twice daily at mealtime Metformin 500 MG tablet Discontinued 500 mg PO TWICE DAILY WITH MEALS 60 0 July 23, 2015 11:54am March 25, 2020 11:17am Comment on above: Take 2 tablets by mo [facility] twice daily with meals. . metoprolol tartrate 25 mg oral tablet (20 sources) beta-Adrenergic Raegan Start: 05-08-2021 End: 06-20-2024 take 1 tablet by mouth twice daily metoprolol tartrate, short acting, (LOPRESSOR) 25 mg tablet Take 1 tablet by mouth two times a day. 180 tablet 3 06/20/2024 Active Start: 11-11-2020 End: 05-08-2021 take 1 tablet by mouth once daily Metoprolol Tartrate 25 mg tablet Discontinued 25 mg PO DAILY November 11, 2020 5:43pm May 08, 2021 2:05pm Start: 03-25-2020 End: 11-11-2020 take 1 tablet by mouth twice daily Metoprolol Tartrate 25 mg tablet Discontinued 25 mg PO TWICE A DAY March 25, 2020 12:00am November 11, 2020 5:43pm Start: 01-03-2019 End: 03-25-2020 Metoprolol Tartrate 50 MG ta blet Discontinued 25 mg PO TWICE A DAY January 03, 2019 12:00am March 25, 2020 11:17am Start: 01-03-2019 End: 03-25-2020 take 25 mg by mouth twice daily Metoprolol Tartrate Di scontinued 25 MG PO TWICE A DAY January 03, 2019 12:00am March 25, 2020 11:17am Start: 07-30-2015 take 1 tablet by luma once daily TOPROL XL 50 MG [id number] One tablet by mouth daily METOPROLOL SUCCINATE [id number] Anita Dietrich RN Start: 07-22-2015 End: 07-23-2015 take 1 tablet by mouth once daily Metoprolol Succinate 50 MG tablet Discontinued 50 mg PO DAILY July 22, 2015 12:00am July 23, 2015 11:54am Comment on above: Take 1 tablet by luma twice daily. nitroglycerin 0.4 mg sublingual tablet (20 sources) Nitrate Vasodilator Start: 07-30-2015 NITROGLYCERIN 0.4 MG SUBL 1 tablet under the tongue every 5 minutes times 3 as needed for chest pain. NITROGLYCERIN [id number] Rosana Shirley RN Start: 07-22-2015 End: 09-18-2024 nitroglycerin sublingual (NI TROQUICK) 0.4 mg SL tablet Indications: Coronary artery disease involving squaxin coronary artery of squaxin heart without angina pectoris Dissolve 1 tablet under the tongue as needed for chest pain. 25 tablet 09/18/2024 Active Start: 07-22-2015 End: 07-23-2015 Nitroglycerin Active 0.4 MG SL Q5M July 23, 2015 11:54am Comment on above: Dissolve 1 tablet un zachary the tongue as needed for chest pain. potassium chloride 10 meq extended release oral tablet (20 sources) Start: 12-06-2023 End: 10-18-2024 take 1 tablet by mouth once daily at breakfast potassium chloride (K-TAB) 10 mEq tablet Take 1 tablet by mouth daily with breakfast. [facility] 12/09/2023 Active Comment on above: Take 1 tablet by luma th daily with breakfast. [facility] 12 hr ranolazine 1000 mg extended release oral tablet (20 sources) Anti-anginal Start: 05-26-2022 End: 09-18-2024 ranolazine SR (RANEXA) 1,000 mg tab ER 12 hr Indications: Coronary artery disease involving squaxin coronary artery of squaxin heart without angina pectoris Take 1 tablet by mouth twice daily. Per CARDIOLOGY. 09/28/2022 Active Start: 11-06-2020 End: 09-28-2022 take 1 tablet by mouth twice daily Ranolazine (Ranexa) 500 mg tablet extended release 12 hr Discontinued 500 mg PO TWICE A DAY 180 April 07, 2022 3:17pm May 26, 2022 1:11pm Start: 04-23-2020 End: 10-30-2020 take 1 tablet by mouth twice daily Ranolazine (Ranexa) 500 mg tablet extended release 12 hr Discontinued 500 mg PO TWICE A DAY 60 April 23, 2020 12:00am October 30, 2020 12:28pm Comment on above: Take 1 tablet by luma th twice daily. Take 1 tablet by luma th twice daily. Per CARDIOLOGY. rosuvastatin calcium 40 mg oral tablet (20 sources) HMG-CoA Reductase Inhibitor Start: 2020 End: 2024 take 1 tablet by mouth once daily at bedtime for hyperlipidemia rosuvastatin (CRESTOR) 40 mg tablet Indications: Mixed hyperlipidemia Take 1 tablet by mouth daily at bedtime. For cholesterol. 90 tablet 3 10/09/2024 Active Comment on above: Take 1 tablet by luma th daily at bedtime. For cholesterol. sildenafil 100 mg oral tablet (20 sources) Phosphodiesterase 5 Inhibitor Start: 2023 Sildenafil (Viagra) 50 mg tablet Active 50 mg PO daily as needed for sexual activity June 06, 2024 12:00am administer 30 minutes to 4 hours before activity Start: 04-18-2024 End: 04-02-2025 take 1 tablet by mouth once daily as needed sildenafil (VIAGRA) 100 mg tablet Indications: Erectile dysfunction, unspecified erectile dysfunction type Take 1 tablet by mouth once daily as needed. Take 30-60 minutes before sexual activity. 5 tablet 5 04/03/2025 Active Start: 04-14-2024 End: 04-18-2024 sildenafil (VIAGRA) 50 mg ta blet Indications: Erectile dysfunction, unspecified erectile dysfunction type Take 1 tablet by mouth as needed. Take 1/2 hour before sexual activity, as directed for e.d. 5 tablet 5 04/14/2024 04/18/2024 Discontinued (Dosage adjustment) Start: 06-26-2023 End: 04-12-2024 sildenafil (VIAGRA) 50 mg ta blet Indications: Erectile dysfunction, unspecified erectile dysfunction type Take 1 tablet by mouth as needed. Take 1/2 hour before sexual activity, as directed for e.d. 5 tablet 5 10/22/2023 04/12/2024 Discontinued Start: 08-15-2019 End: 06-06-2024 take 1 tablet by mouth once daily as needed Sildenafil (Viagra) 50 mg tablet Discontinued 50 mg PO DAILY as needed for sexual activity March 25, 2020 11:18am June 06, 2024 1:40pm Comment on above: Take 1 tablet by luma th as needed. Take 1/2 hour before sexual activity, as directed for e.d. tamsulosin hydrochloride 0.4 mg oral capsule (20 sources) alpha-Adrenergic Raegan Start: End: take 1 capsule by mouth once daily tamsulosin (FLOMAX) 0.4 mg Indications: BPH with obstruction/lower urinary tract symptoms Take 1 capsule by mouth once daily. 90 capsule 3 11/02/2024 Active Comment on above: Take 1 capsule by mo [facility] once daily. Completed/Discontinued Medications Medication Drug Class(es) Dates Sig (Normalized) Sig (Original) aspirin 81 mg oral strip (20 sources) Nonsteroidal Anti-inflammatory Drug Start: 07-30-2015 take 1 tablet by mouth once daily ASPIRIN 81 MG TABS One tablet by mouth daily ASPIRIN [id number] Anita Dietrich RN Start: 07-20-2015 take 1 tablet by luma once daily Aspirin 81 MG tablet,chewable Active 81 mg PO DAILY@0800 July 20, 2015 12:00am [facility] Start: 01-03-2015 take 1 tablet by luma once daily aspirin, enteric coated (ECOTRIN LOW STRENGTH) 81 mg EC tablet Indications: Type II or unspecified type diabetes mellitus without mention of complication, not stated as uncontrolled Take 1 tablet by mouth once daily. 30 tablet 6 01/03/2015 Active Comment on above: Take 1 tablet by luma once daily. atorvastatin 80 mg oral tablet (20 sources) HMG-CoA Reductase Inhibitor Start: 0 End: 2 take 1 tablet by mouth at bedtime Atorvastatin 80 mg tablet Discontinued 80 mg PO AT BEDTIME March 25, 2020 12:00am December 04, 2021 5:41pm Start: 01-03-2019 End: 03-25-2020 take 2 tablets by mouth at bedtime Atorvastatin 40 MG tablet Discontinued 80 mg PO AT BEDTIME January 03, 2019 12:00am March 25, 2020 11:18am Start: 01-03-2019 End: 03-25-2020 take 80 mg by mouth at bedtime Atorvastatin Discontinu ed 80 MG PO AT BEDTIME January 03, 2019 12:00am March 25, 2020 11:18am Start: 07-30-2015 take 1 tablet by luma once daily in the evening ATORVASTATIN CALCIUM 80 MG TABS One tablet by mouth every evening ATORVASTATIN CALCIUM [id number] Anita Dietrich RN Start: 07-22-2015 End: 07-23-2015 take 1 tablet by mouth at bedtime Atorvastatin 80 MG tablet Discontinued 80 mg PO AT BEDTIME July 22, 2015 12:00am July 23, 2015 11:54am benzonatate 100 mg oral capsule (7 sources) Non-narcotic Antitussive Start: 07-21-2024 End: 10-09-2024 take 1 capsule by mouth three times daily as needed benzonatate (TESSALON PERLES) 100 mg capsule Indications: Acute cough Take 1 capsule by mouth three times a day as needed for up to 12 doses. 12 capsule 07/21/2024 10/09/2024 Discontinued (Course of therapy completed) betamethasone 3 mg/ml / betamethasone acetate 3 mg/ml injectable suspension (13 sources) Corticosteroid Start: 04-23-2025 End: 04-23-2025 betamethasone acetate-betamethas one sodium phosphate 6 mg injection (CELESTONE) Start: 04-23-2025 End: 04-23-2025 6 mg, Injection - FOR ORTHO USE ONLY, ONCE, 1 dose, Starting on Wed04/23/25 at 1440, Until Wed04/23/25 at 1440 Start: 01-15-2025 End: 01-15-2025 betamethasone acetate-betame thasone sodium phosphate 6 mg injection (CELESTONE) Start: 01-15-2025 End: 01-15-2025 6 mg, Injection - FOR ORTHO USE ONLY, ONCE, 1 dose, Starting on Wed01/15/25 at 1343, Until Wed01/15/25 at 1343 Start: 10-09-2024 End: 10-09-2024 betamethasone acetate-betame thasone sodium phosphate 6 mg injection (CELESTONE) Start: 10-09-2024 End: 10-09-2024 6 mg, Injection - FOR ORTHO USE ONLY, ONCE, 1 dose, Starting on Wed10/09/24 at 1535, Until Wed10/09/24 at 1535 Start: 06-05-2024 End: 06-05-2024 betamethasone acetate-betame thasone sodium phosphate 6 mg injection (CELESTONE) Start: 06-05-2024 End: 06-05-2024 6 mg, Injection - FOR ORTHO USE ONLY, ONCE, 1 dose, Starting on 06/05/24 at 1433, Until Wed06/05/24 at 1433 Start: 02-14-2024 End: 02-14-2024 betamethasone acetate-betame thasone sodium phosphate 6 mg injection (CELESTONE) Start: 11-08-2023 End: 11-08-2023 betamethasone acetate-betame thasone sodium phosphate 6 mg injection (CELESTONE) Start: 04-26-2023 End: 04-26-2023 betamethasone acetate-betame thasone sodium phosphate 6 mg injection (CELESTONE) Start: 2023 End: 2023 betamethasone acetate-betame thasone sodium phosphate 6 mg injection (CELESTONE) C,E,Copper,Zinc 53-[id number]-N ut (Ocuvite Adult 50 Plus) 250-5-1 mg capsule (1 source) Start: 11-11-2020 End: 12-04-2021 C,E,Copper,Zinc 33-[id number]-X ut (Ocuvite Adult 50 Plus) 250-5-1 mg capsule Discontinued 1 NMA PO DAILY November 11, 2020 1:00am December 04, 2021 5:42pm C,E,Zinc,Copper 46-Perpl1t-U ut (Ocuvite Adult 50 Plus) 250-5-1 mg capsule (10 sources) Start: 11-11-2020 End: 12-04-2021 C,E,Zinc,Copper 19-Vftvr0n-Z ut (Ocuvite Adult 50 Plus) 250-5-1 mg capsule Discontinued 1 CAP PO DAILY November 11, 2020 5:42pm December 04, 2021 5:42pm Start: 11-11-2020 End: 12-04-2021 C,E,Zinc,Copper 56-Idokt1e-N ut (Ocuvite Adult 50 Plus) 250-5-1 mg capsule Discontinued 1 CAP PO DAILY November 11, 2020 12:00am December 04, 2021 4:42pm Start: 11-11-2020 End: 12-04-2021 C,E,Zinc,Copper 63-Xnaev0a-V ut (Ocuvite Adult 50 Plus) 250-5-1 mg capsule Discontinued 1 CAP PO DAILY November 11, 2020 1:00am December 04, 2021 5:42pm clopidogrel 75 mg oral tablet (11 sources) [id number] Platelet Inhibitor Start: 04-17-2020 End: 10-30-2020 take 1 tablet by mouth once daily Clopidogrel (Plavix) 75 mg tablet Discontinued 75 mg PO DAILY 26 10April 17, 2020 12:00am October 30, 2020 12:26pm for heart cath CPAP (20 sources) Start: 09-15-2018 End: 12-04-2024 CPAP Settings 5 - 15 cm H2O, suitable mask per pt preference, chin strap, head gear, humidity, tubing, lifetime supplies. G47.33 Obstructive Sleep Apnea 1 Device 09/15/2018 12/04/2024 Discontinued Start: 09-15-2018 CPAP Settings 5 - 15 cm H2O, suitable mask per pt preference, chin strap, head gear, humidity, tubing, lifetime supplies. G47.33 Obstructive Sleep Apnea 1 Device 09/15/2018 Active Start: 09-15-2018 CPAP Settings 5 - 15 cm H2O, suitable mask per pt preference, chin strap, head gear, humidity, tubing, lifetime supplies. G47.33 Obstructive Sleep Apnea 1 Device 0 09/15/2018 Active Comment on above: Settings 5 - 15 cm H 2O, suitable mask per pt preference, chin strap, head gear, humidity, tubing, lifetime supplies. G47.33 Obstructive Sleep Apnea cyclobenzaprine hydrochloride 10 mg oral tablet (11 sources) Muscle Relaxant Start: End: take 1 tablet by mouth three times daily as needed for pain Cyclobenzaprine 10 MG tablet Discontinued 10 mg PO 3 TIMES DAILY NEEDED as needed for muscle spasm/chest pain January 04, 2019 12:00am February 16, 2019 1:50pm ezetimibe 10 mg oral tablet (11 sources) Dietary Cholesterol Absorption Inhibitor Start: End: take 1 tablet by mouth once daily Ezetimibe 10 MG tablet Discontinued 10 mg PO DAILY July 22, 2015 12:00am July 23, 2015 11:47am fluticasone propionate 0.05 mg/actuat metered dose nasal spray (11 sources) Corticosteroid Start: 020 End: take 50 ug nasal route twice daily Fluticasone Propionate (Allergy Relief (Fluticasone)) 50 mcg/actuation spray,suspension Discontinued 1 NMA INTRANASAL TWICE A DAY March 25, 2020 12:00am December 04, 2021 5:42pm administer into each nostril Start: 03-25-2020 End: 12-04-2021 take 1 spray(s) nasal route twice daily Fluticasone Propionate (Allergy Relief (Fluticasone)) 50 mcg/actuation spray,suspension Discontinued 1 SPRAY INTRANASAL TWICE A DAY March 25, 2020 12:00am December 04, 2021 5:42pm administer into each nostril 24 hr isosorbide mononitrate 120 mg extended release oral tablet (4 sources) Start: 07-30-2015 End: 10-14-2016 take 1 tablet by mouth once daily ISOSORBIDE MONONITRATE ER 120 MG [id number] (Imdur) One tablet by mouth daily ISOSORBIDE MONONITRATE [id number] Rosana Shirley RN 10 ml lidocaine hydrochloride 10 mg/ml injection (13 sources) Antiarrhythmic, Amide Local Anesthetic Start: 04-23-2025 End: 04-23-2025 lidocaine (PF) 10 mg/mL (1 %) 5 mL injection (XYLOCAINE) Start: 04-23-2025 End: 04-23-2025 5 mL, Injection - FOR ORTHO USE ONLY, ONCE, 1 dose, Starting on Wed04/23/25 at 1440, Until Wed04/23/25 at 1440 Start: 01-15-2025 End: 01-15-2025 lidocaine (PF) 10 mg/mL (1 % ) 5 mL injection (XYLOCAINE) Start: 01-15-2025 End: 01-15-2025 5 mL, Injection - FOR ORTHO USE ONLY, ONCE, 1 dose, Starting on Wed01/15/25 at 1343, Until Wed01/15/25 at 1343 Start: 10-09-2024 End: 10-09-2024 lidocaine (PF) 10 mg/mL (1 % ) 5 mL injection (XYLOCAINE) Start: 10-09-2024 End: 10-09-2024 5 mL, Injection - FOR ORTHO USE ONLY, ONCE, 1 dose, Starting on Wed10/09/24 at 1535, Until Wed10/09/24 at 1535 Start: 06-05-2024 End: 06-05-2024 lidocaine (PF) 10 mg/mL (1 % ) 4 mL injection (XYLOCAINE) Start: 06-05-2024 End: 06-05-2024 4 mL, Injection - FOR ORTHO USE ONLY, ONCE, 1 dose, Starting on Wed06/05/24 at 1433, Until Wed06/05/24 at 1433 Start: 02-14-2024 End: 02-14-2024 lidocaine (PF) 10 mg/mL (1 % ) 4 mL injection (XYLOCAINE) Start: 11-08-2023 End: 11-08-2023 lidocaine (PF) 10 mg/mL (1 % ) 4 mL injection (XYLOCAINE) Start: 04-26-2023 End: 04-26-2023 lidocaine (PF) 10 mg/mL (1 % ) 4 mL injection (XYLOCAINE) Start: 2023 End: 2023 lidocaine (PF) 10 mg/mL (1 % ) 4 mL injection (XYLOCAINE) Multivitamin With Folic Acid (Thera) 1 TABLET tablet (11 sources) Start: 07-22-2015 End: 07-23-2015 take 1 tablet by mouth once daily Multivitamin With Folic Acid (Thera) 1 TABLET tablet Discontinued 1 TABLET PO DAILY July 22, 2015 10:35am July 23, 2015 11:48am Start: 07-22-2015 End: 07-23-2015 take 1 tablet by mouth once daily Multivitamin With Folic Acid (Thera) 1 TABLET tablet Discontinued 1 {tbl} PO DAILY July 22, 2015 12:00am July 23, 2015 11:48am Start: 07-22-2015 End: 07-23-2015 take 1 tablet by mouth once daily Multivitamin With Folic Acid (Thera) 1 TABLET tablet Discontinued 1 TABLET PO DAILY July 21, 2015 11:00pm July 23, 2015 10:48am Start: 07-22-2015 End: 07-23-2015 take 1 tablet by mouth once daily Multivitamin With Folic Acid (Thera) 1 TABLET tablet Discontinued 1 TABLET PO DAILY July 22, 2015 12:00am July 23, 2015 11:48am Nirmatrelvir-Ritonavir (9 sources) Start: 04-25-2022 End: 11-13-2022 Nirmatrelvir-Ritonavir (Paxl ovid (Eua)) 300 mg (150 mg x 2)-100 mg tablets,dose pack Discontinued 0 PO .COMPLEX 30 April 25, 2022 12:00am November 13, 2022 12:04pm take TWO 150 mg tablets of nirmatrelvir with ONE 100 mg tablet of ritonavir twice daily for 5 days Start: 04-25-2022 End: 11-13-2022 Nirmatrelvir-Ritonavir (Paxl ovid (Eua)) 300 mg (150 mg x 2)-100 mg tablets,dose pack Discontinued 0 PO .COMPLEX April 25, 2022 12:00am November 13, 2022 12:04pm take TWO 150 mg tablets of nirmatrelvir with ONE 100 mg tablet of ritonavir twice daily for 5 days Start: 04-25-2022 End: 11-13-2022 Nirmatrelvir-Ritonavir (Paxl ovid (Eua)) 300 mg (150 mg x 2)-100 mg tablets,dose pack Discontinued 0 PO .COMPLEX April 24, 2022 11:00pm November 13, 2022 11:04am take TWO 150 mg tablets of nirmatrelvir with ONE 100 mg tablet of ritonavir twice daily for 5 days Start: 04-25-2022 Nirmatrelvir-R itonavir (Paxlovid (Eua)) 300 mg (150 mg x 2)- 100 mg tablets,dose pack Active 0 PO .COMPLEX April 25, 2022 12:00am take TWO 150 mg tablets of nirmatrelvir with ONE 100 mg tablet of ritonavir twice daily for 5 days polyethylene glycol 3350 [id number] mg / potassium chloride 2970 mg / sodium bicarbonate 6740 mg / sodium chloride 5860 mg / sodium sulfate 88313 mg powder for oral solution (2 sources) Osmotic Laxative Start: 08-04-2023 End: 08-04-2023 peg 3350-Electrolytes (GOLYTELY) 236-22.74-6.74 -5.86 gram suspension Indications: History of colonic polyps Take 4,000 mL by mouth one time only for 1 dose. Refer to printed prep instructions from your provider. 4000 mL 0 08/04/2023 08/04/2023 Start: 09-16-2022 End: 09-16-2022 peg 3350-electrolytes (COLYT E) 240-22.72-6.72 -5.84 gram solution Indications: Special screening for malignant neoplasms, colon Take 4,000 mL by mouth one time only for 1 dose. 4000 mL 0 09/16/2022 09/16/2022 Active Comment on above: Take 4,000 mL by luma th one time only for 1 dose. Take 4,000 mL by luma th one time only for 1 dose. Refer to printed prep instructions from your provider. Problems Active Problems Problem Classification Problem Date Documented Da te Episodic/Chronic Acquired foot deformities (8 sources) Acquired hallux valgus; Translations: [Hallux valgus (acquired), unspecified foot] Onset: 06-01-2025 04-22-2023 Chronic Acquired foot deformities (1 source) Bunion; Translations: [Bunion of unspecified foot] Episodic Coronary atherosclerosis and other heart disease (20 sources) Coronary atherosclerosis; Translations: [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] Onset: 03-04-2012 Resolved: 04-28-2017 10-14-2016 Chronic Comment on above: History of bare-meta l stent to the left circumflex coronary artery. Chronic total occlusion of the right coronary artery. Diabetes mellitus with complications (20 sources) Type 2 diabetes mellitus; Translations: [Type 2 diabetes mellitus with diabetic chronic kidney disease] Onset: 09-26-2022 09-27-2022 Chronic Diabetes mellitus without complication (20 sources) Diabetes mellitus; Translations: [Type 2 diabetes mellitus without complication] Onset: 09-05-2007 07-30-2015 Chronic Diabetes mellitus without complication (1 source) Diabetes mellitus without complication; Translations: [Type 2 diabetes mellitus with stage 3a chronic kidney disease, without long-term current use of insulin (HCC)] Onset: 09-27-2022 Disorders of lipid metabolism (20 sources) Hyperlipidemia; Translations: [Mixed hyperlipidemia] Onset: 07-30-2015 07-30-2015 Chronic E Codes: Fall (1 source) Fall; Translations: [Unspecified fall, initial encounter] 06-16-2024 Episodic Essential hypertension (20 sources) Hypertensive disorder; Translations: [Essential hypertension] Onset: 03-04-2012 Resolved: 10-06-2017 07-30-2015 Chronic Heart valve disorders (2 sources) Aortic valve stenosis; Translations: [Nonrheumatic aortic (valve) stenosis] Onset: 06-14-2024 06-06-2024 Chronic Hyperplasia of prostate (20 sources) Benign prostatic hyperplasia; Translations: [Benign prostatic hyperplasia without lower urinary tract symptoms] Onset: 07-28-2007 Resolved: 03-04-2012 06-30-2021 Chronic Malaise and fatigue (1 source) Other fatigue; Translations: [Fatigue, unspecified type] Onset: 05-10-2025 Episodic Mycoses (7 sources) Onychomycosis; Translations: [Tinea unguium] Onset: 06-01-2025 04-22-2023 Episodic Nutritional deficiencies (1 source) Deficiency of other specified B group vitamins; Translations: [Vitamin B12 deficiency] Onset: 05-10-2025 Episodic Osteoarthritis (20 sources) Osteoarthritis of left knee joint; Translations: [Unilateral primary osteoarthritis, left knee] Onset: 05-11-2022 Chronic Other circulatory disease (9 sources) H/O: heart disorder; Translations: [Personal history of other diseases of the circulatory system] 05-04-2022 Episodic Other connective tissue disease (6 sources) Pain of toe of left foot; Translations: [Pain in left toe(s)] 04-22-2023 Episodic Other connective tissue disease (6 sources) Pain of toe of right foot; Translations: [Pain in right toe(s)] 04-22-2023 Episodic Other connective tissue disease (1 source) Pain in left toe(s); Translations: [Pain in toe of left foot] Onset: 06-01-2025 Episodic Other connective tissue disease (1 source) Pain in right toe(s); Translations: [Pain in toe of right foot] Onset: 06-01-2025 Episodic Other diseases of kidney and ureters (1 source) Renal impairment; Translations: [Disorder of kidney and ureter, unspecified] 02-07-2024 Episodic Other ear and sense organ disorders (1 source) Tinnitus, unspecified ear; Translations: [Tinnitus, unspecified] 05-14-2023 Episodic Other hereditary and degenerative nervous system conditions (20 sources) Oral dyskinesia; 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] Onset: 05-11-2022 Chronic Other hereditary and degenerative nervous system conditions (1 source) Impaired cognition; Translations: [Mild cognitive impairment, so stated] 05-10-2025 Chronic Other hereditary and degenerative nervous system conditions (2 sources) Mild cognitive impairment, so stated; Translations: [Cognitive impairment, mild, so stated] Onset: 05-10-2025 Chronic Other hereditary and degenerative nervous system conditions (1 source) Idiopathic orofacial dystonia; 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] Onset: 05-11-2022 Chronic Other lower respiratory disease (4 sources) Wheezing; Translations: [Wheezing] Episodic Other lower respiratory disease (1 source) Cough; Translations: [Acute cough] 07-21-2024 Episodic Other male genital disorders (20 sources) Male erectile dysfunction, unspecified; Translations: [Impotence of organic origin] Onset: 06-11-2016 06-11-2016 Chronic Other nervous system disorders (11 sources) Tremor; Translations: [Tremor, unspecified] 02-06-2022 Episodic Other nervous system disorders (4 sources) Impaired cognition; Translations: [Other symptoms and signs involving cognitive functions and awareness] 04-10-2025 Episodic Other nervous system disorders (1 source) Other symptoms and signs involving cognitive functions and awareness; Translations: [Cognitive deficits] Onset: 05-10-2025 Episodic Other non-traumatic joint disorders (4 sources) Pain in left knee; Translations: [Pain in joint, lower leg] Episodic Other nutritional; endocrine; and metabolic disorders (2 sources) Body mass index (BMI) 32.0-32.9, adult; Translations: [Body mass index (BMI) 32.0-32.9, adult] Onset: 10-30-2016 10-30-2016 Chronic Other nutritional; endocrine; and metabolic disorders (20 sources) Obese class II; Translations: [Obesity, unspecified] Onset: 04-02-2023 Chronic Other nutritional; endocrine; and metabolic disorders (5 sources) Obesity, unspecified; Translations: [Obesity, unspecified] Onset: 06-14-2024 12-06-2023 Chronic Other nutritional; endocrine; and metabolic disorders (1 source) Abnormal weight gain; Translations: [Weight gain] Onset: 05-10-2025 Episodic Other screening for suspected conditions (not mental disorders or infectious disease) (5 sources) Patient encounter status; Translations: [Encounter for screening for malignant neoplasm of colon] Episodic Other skin disorders (1 source) Seborrheic keratosis; Translations: [Other seborrheic keratosis] 10-09-2024 Episodic Other upper respiratory infections (9 sources) Sore throat symptom; Translations: [Acute pharyngitis, unspecified] 05-04-2022 Episodic Residual codes; unclassified (20 sources) Obstructive sleep apnea syndrome; Translations: [Obstructive sleep apnea (adult) (pediatric)] Onset: 10-06-2017 03-03-2021 Chronic Residual codes; unclassified (20 sources) Hypoxia; Translations: [Idiopathic sleep related nonobstructive alveolar hypoventilation] Onset: 10-06-2017 10-06-2017 Chronic Residual codes; unclassified (7 sources) Obstructive sleep apnea (adult) (pediatric); Translations: [Obstructive sleep apnea (adult)(pediatric)] Onset: 07-25-2024 12-06-2023 Chronic Residual codes; unclassified (2 sources) Dependence on other enabling machines and devices; Translations: [Dependence on other enabling machines and devices] Onset: 06-14-2024 Chronic Residual codes; unclassified (11 sources) Edema of left lower limb; Translations: [Localized edema] 12-08-2021 Episodic Residual codes; unclassified (4 sources) Bilateral lower limb edema; Translations: [Localized edema] 12-06-2023 Episodic Residual codes; unclassified (1 source) Other specified health status; Translations: [Intolerance of continuous positive airway pressure (CPAP) ventilation] Onset: 08-02-2025 Episodic Screening or history of mental health and substance abuse (2 sources) Nicotine dependence; Translations: [Nicotine dependence, unspecified, uncomplicated] Onset: 07-30-2015 07-30-2015 Chronic Substance-related disorders (20 sources) Marijuana user; Translations: [Cannabis use, unspecified, uncomplicated] 12-13-2015 Episodic Unclassified (2 sources) Placement of stent in coronary artery ; Translations: [Presence of cardiac and vascular implant and graft, unspecified] Onset: 07-30-2015 04-28-2017 Viral infection (9 sources) Disease caused by 2019-nCoV; Translations: [COVID-19] 04-25-2022 Episodic Past or Other Problems Problem Classification Problem Date Documented Date Episodic/Chronic Acute bronchitis (20 sources) Bronchitis; Translations: [Acute bronchitis, unspecified] Onset: 01-19-2019 01-19-2019 Episodic Alcohol-related disorders (20 sources) Alcohol abuse; Translations: [Alcohol abuse, uncomplicated] Onset: 03-05-2012 Resolved: 03-16-2012 09-22-2021 Chronic Coronary atherosclerosis and other heart disease (20 sources) Presence of coronary angioplasty implant and graft; Translations: [Stented coronary artery] Onset: 03-08-2012 07-30-2015 Episodic Comment on above: PTCA/BMS to Mid CX 0 04/05/12 Genitourinary symptoms and ill-defined conditions (20 sources) Lower urinary tract symptoms; Translations: [Unspecified symptoms and signs involving the genitourinary system] Onset: 12-11-2015 Resolved: 05-04-2018 05-04-2018 Episodic Nonspecific chest pain (16 sources) Atypical chest pain; Translations: [Chest pain] Onset: 10-14-2016 10-14-2016 Episodic Other aftercare (2 sources) Other prison (current) drug therapy; Translations: [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] Onset: 07-30-2015 07-30-2015 Episodic Other and unspecified benign neoplasm (20 sources) Tubular adenoma of colon; Translations: [Benign neoplasm of colon, unspecified] Onset: 08-03-2012 10-21-2016 Episodic Other and unspecified benign neoplasm (20 sources) History of polyp of colon; Translations: [Personal history of colonic polyps] Onset: 08-25-2023 Episodic Other ear and sense organ disorders (20 sources) Tinnitus; Translations: [Tinnitus, unspecified ear] Onset: 07-30-2021 07-30-2021 Episodic Other nutritional; endocrine; and metabolic disorders (20 sources) Obese class I; Translations: [Obesity, unspecified] Onset: 08-16-2019 Resolved: 10-08-2023 08-16-2019 Chronic Other nutritional; endocrine; and metabolic disorders (20 sources) Body mass index 30+ - obesity; Translations: [Obesity, unspecified] Resolved: 07-30-2021 07-30-2021 Chronic Residual codes; unclassified (9 sources) Localized edema; Translations: [Edema] Onset: 06-14-2024 Episodic Residual codes; unclassified (7 sources) History of cardiac catheterization; Translations: [Other specified postprocedural states] Onset: 04-27-2022 05-26-2022 Episodic Comment on above: LEFT MAIN: Mild calc ification; LEFT ANTERIOR DESCENDING ARTERY: Mild luminal irregularities; OSTIAL LAD: 10 -25 % StenosisPROX LAD: Mild calcification, 25 % Stenosis; CIRCUMFLEX ARTERY: PROX CIRC: Mild calcification; MID CIRC: eccentric: 25 % Stenosis, Previously placed stent has an [id number] - 25 % restenosis; OM 2: Proximal - 25 % Stenosis; RIGHT CORONARY ARTERY: PROX RCA: is occluded; COLLATERAL FLOW: Collateral flow from Left to Right; per cardiac cath Dr. Barakat 05/26/22 ;LEFT MAIN: Angiographically normal; LEFT ANTERIOR DESCENDING ARTERY:OSTIAL LAD: 10 - 25 % StenosisMID LAD: Mild luminal irregularities, CIRCUMFLEX ARTERY: Mild luminal irregularities, MID CIRC: Previously placed; stent has an instent smooth; eccentric; 25 % restenosis; RIGHT CORONARY ARTERY:PROX RCA: is occluded, COLLATERAL FLOW: Collateral flow from Left to Right; AORTIC ROOT: Angiographically normal per cath 04/23/20 Residual codes; unclassified (1 source) Other specified postprocedural states; Translations: [Other specified postprocedural states] Onset: 07-25-2024 Episodic Screening and history of mental health and substance abuse codes (2 sources) Encounter for screening examination for other mental health and behavioral disorders; Translations: [Encounter for screening for depression] Onset: 04-10-2025 Episodic Substance-related disorders (20 sources) Smoker; Translations: [Nicotine dependence, unspecified, uncomplicated] Onset: 03-04-2012 Resolved: 03-04-2012 Chronic Unclassified (20 sources) SUMMARY Onset: 03-04-2012 Resolved: 03-16-2012 09-22-2021 Unclassified (9 sources) Smoker; Translations: [Smoking] Onset: 03-04-2012 Resolved: 03-04-2012 Results Test Name Value Interpretation Reference Range Facility [facility] 07-30-2025 CNOV Office Visit (ORTHWS ) XAVI CABELLO ([id number]) 1955 Date Time Provider Department 07/30/25 11:45 AM NILDA KIM During your visit today, we recorded the following information about you: Arabella Cohen MA 07/30/2025 12:03 PM Signed AMB ROOMING INTAKE FLOWSHEET DATA Pain Pain Level: 4 Pain Location: Knee-Left Description: Sharp, Dull, Aching Duration Amount of Time: (ongoing) Frequency: Intermittent Intervention/Comfort measure: Medication Nilda Kim PA-C 07/30/2025 12:03 PM Signed Large Joint Arthro/Inj: L knee joint 07/30/2025 12:03 PM The procedure site was prepped in the usual sterile fashion. Site: L knee joint Medications: 6 mg betamethasone acetate-betamethasone sodium phosphate 6 mg/mL Anesthetics: 5 mL lidocaine (PF) 10 mg/mL (1 %) Outcome: Tolerated well, no immediate complications Post-injection instructions were reviewed with the patient and the patient voiced understanding of these instructions. Informed Consent Consent Obtained: Verbal [place] Protocol A moment to CARE was completed. SIGN IN Sign in communication not applicable due to emergent procedure. Personnel directly involved with the procedure wore the appropriate PPE. Special Equipment: N/A Patient/Surrogate Stated/Verified: Patient name, Date of , Relevant allergies and Intended procedure TIME OUT Relevant labs, photos, and/or imaging studies have been reviewed. Consent documented and matches the intended procedure. Correct side/site marked and visible. Medications required for procedure verified. No fire risk assessment and interventions applicable. No implant(s) inserted. Referring Provider: NILDA KIM [[id number]] Allergies As of Date: 07/30/2025 (No Known Allergies) Date Reviewed: 07/30/2025 Reviewed by: Arabella Cohen MA - Fully Assessed Reason for Visit: Follow Up [171] Primary Visit Diagnosis:Primary osteoarthritis of left knee [M17.12] Order(s):Large Joint Arthro/Inj: L knee joint [VFJ790] Order #: [id number] [] betamethasone acetate-betamethasone sodium phosphate 6 mg injection (CELESTONE)Disp: Rfl: [] lidocaine (PF) 10 mg/mL (1 %) 5 mL injection (XYLOCAINE)Disp: Rfl: Prescriptions as of 07/30/2025 - Fenofibrate (LOFIBRA) 160 mg tablet Take 1 tablet by mouth once daily. - gabapentin (NEURONTIN) 100 mg capsule Take 1 capsule by mouth two times a day for 180 days. Taking for tremors - glipiZIDE (GLUCOTROL XL) 2.5 mg 24 hr tablet Take 1 tablet by mouth once daily. Taking Diabetes - metFORMIN (GLUCOPHAGE) 500 mg tablet Take 1 tablet by mouth two times a day with meals. . - sildenafil (VIAGRA) 100 mg tablet Take 1 tablet by mouth once daily as needed. Take 30-60 minutes before sexual activity. - empagliflozin (JARDIANCE) 25 mg tablet Take 1 tablet by mouth once daily. Take 1 tablet once daily in the morning - tamsulosin (FLOMAX) 0.4 mg Take 1 capsule by mouth once daily. - CPAP/BIPAP/OTHER Type .CPAPSettings into a note to see current settings/supplies/DME information. - lisinopril (ZESTRIL) 10 mg tablet Take 1 tablet by mouth once daily. - albuterol HFA (PROVENTIL HFA, VENTOLIN HFA) 90 mcg/actuation inhaler Inhale 2 Puffs as instructed every 6 hours as needed for wheezing/shortness of breath. - rosuvastatin (CRESTOR) 40 mg tablet Take 1 tablet by mouth daily at bedtime. For cholesterol. - nitroglycerin sublingual (NITROQUICK) 0.4 mg SL tablet Dissolve 1 tablet under the tongue as needed for chest pain. - metoprolol tartrate, short acting, (LOPRESSOR) 25 mg tablet Take 1 tablet by mouth two times a day. - furosemide (LASIX) 20 mg tablet Take 1 tablet by mouth once daily. From [facility]. - potassium chloride (K-TAB) 10 mEq tablet Take 1 tablet by mouth daily with breakfast. From [facility]. - ranolazine SR (RANEXA) 1,000 mg tab ER 12 hr Take 1 tablet by mouth twice daily. Per CARDIOLOGY. - aspirin, enteric coated (ECOTRIN LOW STRENGTH) 81 mg EC tablet Take 1 tablet by mouth once daily. Problem List As Of Date 07/30/2025 Noted Resolved Mixed hyperlipidemia [E78.2] BPH w/o urinary obs/LUTS [N40.0] 07/28/2007 03/04/2012 Type 2 diabetes mellitus with stage 3a chronic *09/26/2022 Unstable angina (HCC) [I20.0] 03/04/2012 03/15/2012 SUMMARY [V999.95] 03/04/2012 03/16/2012 Smoking [PCJ6005] 03/04/2012 03/04/2012 Hypertension [I10] 03/04/2012 10/06/2017 Alcohol abuse [F10.10] 03/05/2012 03/16/2012 CAD (coronary artery disease), squaxin coronary *03/05/2012 Stented coronary artery [Z95.5] 03/08/2012 Unstable angina [I20.0] 07/28/2013 09/06/2013 BPH with obstruction/lower urinary tract sympto*12/11/2015 Lower urinary tract symptoms (LUTS) [R39.9] 12/11/2015 05/04/2018 Marijuana use [F12.90] Obesity (BMI 30-39.9) [E66.9] 07/30/2021 Essential hypertension [I10] 12/13/2015 Male erectile dysfun (more content not included)... Normal [facility] MRI 3D BRAIN QUANTon -14-2 025 MRI 3D BRAIN QUANT * * *Final Report* * * DATE OF EXAM: Jul 10 2025 3:27PM [facility] [id number] - MRI 3D BRAIN QUANT / PROCEDURE REASON: Cognitive impairment, mild, so stated * * * * Physician Interpretation * * * * EXAMINATION: MRI BRAIN W QUANT WO IVCON, MRI 3D BRAIN QUANT CLINICAL HISTORY: Cognitive impairment. TECHNIQUE: Axial LINDA FLAIR, LINDA T2, diffusion and susceptibility weighted imaging without contrast, using the ADNI dementia protocol and 3-D post-processing using the NeuroQuant software at an independent workstation with concurrent physician supervision and images were created, reviewed and archived. MQ: [id number] COMPARISON: None RESULT: QUALITATIVE: Acute Intracranial Process: None. Chronic Intracranial Process: Scattered nonspecific white matter changes. Number of chronic lacunar infarcts: None Location of chronic lacunar infarcts: Not applicable Age related white matter changes ([facility]) rating: White matter lesions: 1 Basal ganglia lesions: 0 Prior intracranial hemorrhage: Parenchymal microhemorrhages: 0 Other (siderosis/macrohemorrh ages (>10mm): Not Applicable Amyloid Related Imaging Abnormalities: ARIA-E: N/A ARIA-H Microhemorrhage: N/A ARIA-H Siderosis: N/A Qualitative brain and hippocampal volume loss for age: Mild volume loss. Ventricles: Commensurate with volume loss. Brain Parenchymal Signal and Morphology: The brain parenchyma is otherwise within normal limits of signal and morphology. There is no evidence of an intracranial mass or extraaxial fluid collection. Other Significant Findings: None. QUANTITATIVE: Exam Quality: Good for volumetric analysis. Segmentation: Negligible mismapping by visual inspection. Quantitative Data: Total Hippocampal Volume: Percentile for Age: 32 Asymmetry Index: -9.99 Inferior Lateral Vent Volume: Percentile for age: 46 Asymmetry Index: 27.8 Superior Lateral Vent Volume: Percentile for age: 34 Asymmetry Index: 35.7 Temporal Lobe Cortex Volume: Temporal Lobe Percentile for Age: 80 Temporal Lobe Asymmetry Index: -1.59 Frontal Lobe Cortex Volume: Frontal Lobe Percentile for Age: 97 Frontal Lobe Asymmetry Index: -3.72 Parietal Lobe Cortex Volume: Parietal Lobe Percentile for Age:50 Occipital Lobe Cortex Volume: Occipital Lobe Percentile for Age: 73 Whole Brain Volume Brain Percentile for Age: 31 Concordance between qualitative and quantitative hippocampal volume assessment: Concordant Change in brain volumes: No previous volumetric study for comparison See below for comparison of brain volumes in relation to the prior volumetric study: Not applicable. The prior study was reprocessed with the current algorithm version for adequate comparison. Please note that small variations may be due to standard measurement error. Brain Volume: Current percentile: N/A Previous percentile: N/A Hippocampal Volume: Current percentile: N/A Previous percentile: N/A Superior Lateral Ventricle Volume Change: Current percentile: N/A Previous percentile: N/A Inferior Lateral Ventricle Volume Change: Current percentile: N/A Previous percentile: N/A Mean hippocampal volume loss among normal elderly: 0.7% per year, (-0.3 to 1.7; Ovi 2008; also Yoel 2010). IMPRESSION: No evidence of an acute intracranial process or intracranial mass. Mild generalized volume loss. Hippocampal volumes at the 32nd percentile when compared to age matched normal controls by quantitative analysis. Mild white matter disease which is nonspecific but likely reflective of chronic microvascular ischemia. No evidence of parenchymal microhemorrhages by MRI. REFERENCES: White Matter Lesions: 0 = No lesions, including symmetrical, well-defined caps or bands 1 = Focal Lesions 2 = Beginning of [place] 3 = Diffuse Involvement of Entire Region Basal Ganglia Lesions: 0 = No Lesions 1 = 1 Focal Lesion (>5mm) 2 = >1 Focal Lesion (>5mm) 3 = Confluent Lesions Yoel Butts et al. The clinical use of structural MRI in Alzheimer disease. Nature Reviews Neurology 6;67 (2010). Ovi et al. Validation of a fully automated 3D hippocampal segmentation method using subjects with Alzheimer's disease mild cognitive impairment, and elderly controls. Neuroimage 43;59 (2008). Delta et al. A New Rating Scale for Age-Related White Matter Changes Applicable to MRI and CT. Stroke. 32:1318 (2001). * Asymmetry index defined as difference between left and right volumes divided by mean or [(L-R/Mean) x 100] (%). Age-matched reference charts measure total hippocampal volume (% of intracranial volume). See results from the analysis charts for details. Care Companion: CYNTHIA Transcribe Date/Time: Jul 10 2025 3:33P Dictated by : CHACHA VILLANUEVA MD This examination was interpreted and the report reviewed and electronically signed by: CHACHA VILLANUEVA MD on Jul 10 2025 4:44PM EST [id number] [facility] MRI BRAIN W QUANT WO IVCONon 07-10-2025 MRI BRAIN W QUANT WO IVCON * * *Final Report* * * DATE OF EXAM: Jul 10 2025 3:27PM [facility] 3015 - MRI BRAIN W QUANT WO IVCON / PROCEDURE REASON: Cognitive impairment, mild, so stated * * * * Physician Interpretation * * * * EXAMINATION: MRI BRAIN W QUANT WO IVCON, MRI 3D BRAIN QUANT CLINICAL HISTORY: Cognitive impairment. TECHNIQUE: Axial LINDA FLAIR, LINDA T2, diffusion and susceptibility weighted imaging without contrast, using the ADNI dementia protocol and 3-D post-processing using the [employer] software at an independent workstation with concurrent physician supervision and images were created, reviewed and archived. MQ: [id number] COMPARISON: None RESULT: QUALITATIVE: Acute Intracranial Process: None. Chronic Intracranial Process: Scattered nonspecific white matter changes. Number of chronic lacunar infarcts: None Location of chronic lacunar infarcts: Not applicable Age related white matter changes (ARWMC) rating: White matter lesions: 1 Basal ganglia lesions: 0 Prior intracranial hemorrhage: Parenchymal microhemorrhages: 0 Other (siderosis/macrohemorrh ages (>10mm): Not Applicable Amyloid Related Imaging Abnormalities: ARIA-E: N/A ARIA-H Microhemorrhage: N/A ARIA-H Siderosis: N/A Qualitative brain and hippocampal volume loss for age: Mild volume loss. Ventricles: Commensurate with volume loss. Brain Parenchymal Signal and Morphology: The brain parenchyma is otherwise within normal limits of signal and morphology. There is no evidence of an intracranial mass or extraaxial fluid collection. Other Significant Findings: None. QUANTITATIVE: Exam Quality: Good for volumetric analysis. Segmentation: Negligible mismapping by visual inspection. Quantitative Data: Total Hippocampal Volume: Percentile for Age: 32 Asymmetry Index: -9.99 Inferior Lateral Vent Volume: Percentile for age: 46 Asymmetry Index: 27.8 Superior Lateral Vent Volume: Percentile for age: 34 Asymmetry Index: 35.7 Temporal Lobe Cortex Volume: Temporal Lobe Percentile for Age: 80 Temporal Lobe Asymmetry Index: -1.59 Frontal Lobe Cortex Volume: Frontal Lobe Percentile for Age: 97 Frontal Lobe Asymmetry Index: -3.72 Parietal Lobe Cortex Volume: Parietal Lobe Percentile for Age:50 Occipital Lobe Cortex Volume: Occipital Lobe Percentile for Age: 73 Whole Brain Volume Brain Percentile for Age: 31 Concordance between qualitative and quantitative hippocampal volume assessment: Concordant Change in brain volumes: No previous volumetric study for comparison See below for comparison of brain volumes in relation to the prior volumetric study: Not applicable. The prior study was reprocessed with the current algorithm version for adequate comparison. Please note that small variations may be due to standard measurement error. Brain Volume: Current percentile: N/A Previous percentile: N/A Hippocampal Volume: Current percentile: N/A Previous percentile: N/A Superior Lateral Ventricle Volume Change: Current percentile: N/A Previous percentile: N/A Inferior Lateral Ventricle Volume Change: Current percentile: N/A Previous percentile: N/A Mean hippocampal volume loss among normal elderly: 0.7% per year, (-0.3 to 1.7; Ovi 2008; also Yoel 2010). IMPRESSION: No evidence of an acute intracranial process or intracranial mass. Mild generalized volume loss. Hippocampal volumes at the 32nd percentile when compared to age matched normal controls by quantitative analysis. Mild white matter disease which is nonspecific but likely reflective of chronic microvascular ischemia. No evidence of parenchymal microhemorrhages by MRI. REFERENCES: White Matter Lesions: 0 = No lesions, including symmetrical, well-defined caps or bands 1 = Focal Lesions 2 = Beginning of [place] 3 = Diffuse Involvement of Entire Region Basal Ganglia Lesions: 0 = No Lesions 1 = 1 Focal Lesion (>5mm) 2 = >1 Focal Lesion (>5mm) 3 = Confluent Lesions Yoel Butts, et al. The clinical use of structural MRI in Alzheimer disease. Nature Reviews Neurology 6;67 (2010). Ovi et al. Validation of a fully automated 3D hippocampal segmentation method using subjects with Alzheimer's disease mild cognitive impairment, and elderly controls. Neuroimage 43;59 (2008). Delta et al. A New Rating Scale for Age-Related White Matter Changes Applicable to MRI and CT. Stroke. 32:1318 (2001). * Asymmetry index defined as difference between left and right volumes divided by mean or [(L-R/Mean) x 100] (%). Age-matched reference charts measure total hippocampal volume (% of intracranial volume). See results from the analysis charts for details. Care Companion: CYNTHIA Transcribe Date/Time: Jul 10 2025 3:33P Dictated by : CHACHA VILLANUEVA MD This examination was interpreted and the report reviewed and electronically signed by: CHACHA VILLANUEVA MD on Jul 10 2025 4:44PM EST [id number] [facility] CNOVon 06-27-2025 CNOV Office Visit (CHRISTINAR ) XAVI CABELLO ([id number]) 1955 M Date Time Provider Department 06/27/25 3:30 PM TERRI AGUIRRE During your visit today, we recorded the following information about you: Pulse Respiration Blood pressure Weight 86/minute 16/minute 122/78 102.1 kg Terri Aguirre MD 06/27/2025 4:04 PM Signed We discussed the following during your visit: 1. MRI Test: - I will reorder the MRI test for you. Please ensure you go to the correct location this time. If you need assistance with directions, consider asking your cousin or friend to help you navigate or use a GPS-enabled device. - Once the MRI is completed, we will review the results together at a follow-up appointment. 2. Sleep Apnea and Inspire Device: - You expressed interest in the Inspire device for sleep apnea and stated you no longer wish to use the CPAP machine. - The Inspire device involves placing a probe in the tongue area. You mentioned concerns about whether this would interfere with dental implants, and I confirmed it will not. - You may need to visit the [facility] twice a year for follow-up care related to the Inspire device. 3. Tremor: - You reported taking medication for tremors, but I do not see any current prescriptions for this in your records. Please confirm the name of the medication and the prescribing doctor so we can update your chart. - If your tremors worsen or you need further evaluation, let me know. 4. Tinnitus: - You mentioned ongoing tinnitus and frustration with treatment options. While there is no specific treatment discussed today, please let me know if you would like to explore management options in the future. Next Steps: - Complete the MRI as scheduled. My team will assist you with scheduling and provide any necessary instructions. - Follow up with me after the MRI to discuss the results and next steps. - If you have any questions or concerns about your tremor medication or the Inspire device, please contact our office. Terri Aguirre MD 06/27/2025 5:49 PM Signed Reason for Visit HPI Xavi is a 70-year-old male with a history of tremors, tinnitus, and sleep apnea, presenting for follow-up. Xavi reports difficulty locating the facility for a scheduled MRI test, resulting in multiple visits to the wrong hospital. He plans to attempt the test again with assistance from his cousin and roommate, who have navigation capabilities on their phones. Xavi expresses a desire to discontinue using his current sleep apnea machine and is interested in the Inspire device. He inquires about potential interference with future dental implants and mentions that his insurance may cover some costs for both the Inspire device and dental implants. He reports ongoing tremors, for which he is taking medication. Initially prescribed one pill, he requested an increase to two pills daily and believes a dosage of 4-5 pills would be more effective. He also experiences tinnitus and expresses skepticism about available treatments. SOCIAL HISTORY[1] Past medical history, appointments, medications, allergies reviewed. Pertinent Lab/Diagnostic Studies are reviewed and discussed today Current Outpatient Medications: Fenofibrate (LOFIBRA) 160 mg tablet gabapentin (NEURONTIN) 100 mg capsule glipiZIDE (GLUCOTROL XL) 2.5 mg 24 hr tablet metFORMIN (GLUCOPHAGE) 500 mg tablet sildenafil (VIAGRA) 100 mg tablet empagliflozin (JARDIANCE) 25 mg tablet tamsulosin (FLOMAX) 0.4 mg CPAP/BIPAP/OTHER lisinopril (ZESTRIL) 10 mg tablet albuterol HFA (PROVENTIL HFA, VENTOLIN HFA) 90 mcg/actuation inhaler rosuvastatin (CRESTOR) 40 mg tablet nitroglycerin sublingual (NITROQUICK) 0.4 mg SL tablet metoprolol tartrate, short acting, (LOPRESSOR) 25 mg tablet furosemide (LASIX) 20 mg tablet potassium chloride (K-TAB) 10 mEq tablet ranolazine SR (RANEXA) 1,000 mg tab ER 12 hr aspirin, enteric coated (ECOTRIN LOW STRENGTH) 81 mg EC tablet Health Maintenance Influenza Vaccine(1)@ Review Of Systems Ears/Nose/Mouth/Throat: (+) tinnitus Neurological: (+) tremor Physical Exam BP 122/78 Pulse 86 Resp 16 Wt 102.1 kg (225 lb) BMI 35.73 kg/m? GENERAL: NAD, alert and oriented SKIN: unremarkable, no rash or skin lesions. HEAD: normocephalic EYES: PERRLA, EOMI, conjunctiva clear EARS: external ears normal, canals clear, TM's normal. NOSE/SINUSES: Nares normal. Septum midline. OROPHARYNX: lips, mucosa, and tongue normal, good dentition. No oral lesions noted. NECK: Supple, no lymphadenopathy, normal thyroid, no carotid bruits. LUNGS: Clear to auscultation bilaterally, no wheezes/rhonchi/rales. HEART: Regular rate and rhythm, no murmurs. No ectopy. EXTREMITIES: Normal, No deformities, No skin discoloration, No edema. NEURO: Awake, alert and oriented x3, cranial nerves II-XII (more content not included)... Normal [facility] CNOVon 06-01-2025 CNOV Office Visit (PODIWS ) XAVI CABELLO ([id number]) 1955 M Date Time Provider Department 06/01/25 2:20 PM MARGARITO JOSEPH During your visit today, we recorded the following information about you: Rupali Pendleton, VIOLETA 06/01/2025 2:37 PM Signed Patient presents with: Left Foot - Established Patient, Follow Up, Diabetic Foot Care Right Foot - Established Patient, Follow Up, Diabetic Foot Care Patient presents for follow up diabetic foot/nail care. WALT 11/28/24 Margarito Joseph 06/01/2025 2:25 PM Signed Diabetes Foot Care Instructions When you have diabetes, proper foot care is very important. Poor foot care may lead to amputation of a foot or leg. As a person with diabetes, you are more vulnerable to foot problems, because diabetes can damage your nerves and reduce blood flow to your feet. Here are some diabetes foot care tips to follow: Wash and Dry Your Feet Daily Use mild soaps Use warm water Pat your skin dry; do not rub. Thoroughly dry your feet. After washing, use lotion on your feet to prevent cracking. Do not put lotion between your toes. Examine Your Feet Each Day Check the tops and bottoms of your feet. Have someone else look at your feet if you cannot see them. Check for dry, cracked skin. Look for blisters, cuts, scratches, or other sores. Check for redness, increased warmth, or tenderness when touching any area of your feet. Check for ingrown toenails, corns, and calluses. If you get a blister or sore from your shoes, do not pop it. Apply a bandage and wear a different pair of shoes. Take Care of Your Toenails Cut toenails after bathing, when they are soft. Cut toenails straight across and smooth with a nail file. Avoid cutting into the corners of toes. Do not cut cuticles. If you have neuropathy (or decreased sensation in your feet) a director data processing should always cut your toenails. Be Careful When Exercising Walk and exercise in comfortable shoes. Do not exercise when you have open sores on your feet. Protect Your Feet With Shoes and Socks Never go barefoot. Always protect your feet by wearing shoes or hard-soled slippers or footwear. Avoid shoes with high heels and pointed toes. Avoid shoes that expose your toes or heels (such as open-toed shoes or sandals). These types of shoes increase your risk for injury and potential infections. Try on new footwear with the type of socks you usually wear. Do not wear new shoes for more than an hour at a time. Change your socks daily. Look and feel inside your shoes before putting them on to make sure there are no foreign objects or rough areas. Avoid tight socks. Wear natural-fiber socks (cotton, wool, or a cotton-wool blend). Wear special shoes if your health care provider recommends them. Wear shoes/boots that will protect your feet from various weather conditions (cold, moisture, etc.). Make sure your shoes fit properly. If you have neuropathy (nerve damage), you may not notice that your shoes are too tight. Perform the footwear test described below. Footwear Test Use this simple test to see if your shoes fit correctly: Stand on a piece of paper. (Make sure you are standing and not sitting, because your foot changes shape when you stand.) Trace the outline of your foot. Trace the outline of your shoe. Compare the tracings: Is the shoe too narrow? Is your foot crammed into the shoe? The shoe should be at least 1/2 inch longer than your longest toe and as wide as your foot. Proper Shoe Choices The following types of shoes are best for people with diabetes Closed toes and heels Leather uppers without a seam inside At least 1/2 inch extra space at the end of your longest toe Inside of shoe should be soft with no rough areas Outer sole should be made of stiff material Shoes should be at least as wide as your feet Tips for Foot Care in Diabetes Don't wait to treat a minor foot problem if you have diabetes. Follow your health care provider's guidelines and first aid guidelines. Report foot injuries and infections to your health care provider immediately. Check water temperature with your elbow, not your foot. Do not use a heating pad on your feet. Do not cross your legs. Do not self-treat your corns, calluses, or other foot problems. Go to your health care provider or director data processing to treat these conditions. Margarito Joseph 06/01/2025 2:37 PM Signed Last saw pcp: 05/10/25 Subjective: Patient presents to clinic c/o painful toenails. They state that the nails are especially painful with shoe gear and pressure. Patient states that nails 1-5 b/l are painful. Patient admits to being diabetic. No other pedal complaints at this time. Patient states no change in medications or medical history since last visit. Objective: Patient presents to clinic ambulating in And 1 high tops Vasc: DP and PT pulses are (more content not included)... Normal [facility] CNOVon 05-10-2025 CNOV Office Visit (CHRISTINAR ) XAVI CABELLO ([id number]) 1955 M Date Time Provider Department 05/10/25 1:30 PM TERRI AGUIRRE During your visit today, we recorded the following information about you: Pulse Respiration Blood pressure Weight Normal [facility] TSH SerPl-aCncon 05-10-2025 TSH Qn 1.700 m[IU]/L Normal 0.270-4.200 [facility] Comment on above: Order Comment: Speci men Type: BLOOD SPECIMENOrdering Facility: [facility] Address: [address] [place] [address] Performed By: #### 3 016-3, 2132-9 ####[facility] LABCLIA [id number] [place] [address] [place] Vit B12 [facility], [place] 08-14-2 025 Cobalamin (Vitamin B12) [Mass/Vol] 530 pg/mL Normal 232-1245 [facility] Comment on above: Order Comment: Speci men Type: BLOOD SPECIMENOrdering Facility: [facility] Address: [address] [place] [address] Performed By: #### 3 016-3, 2132-9 ####[facility] LABCLIA [id number] [facility]ID[facility] [address] CNOVon 04-23-2025 CNOV Office Visit (ORTHWS ) XAVI CABELLO ([id number]) 1955 Date Time Provider Department 04/23/25 2:30 PM NILDA KIM During your visit today, we recorded the following information about you: Arabella Cohen MA 04/23/2025 2:40 PM Signed AMB ROOMING INTAKE FLOWSHEET DATA Pain Pain Level: 3 Pain Location: Knee-Left Description: Dull, Aching Duration Amount of Time: (ongoing) Frequency: Intermittent Intervention/Comfort measure: Other: See comment (none) Nilda Kim PA-C 04/23/2025 2:40 PM Signed Large Joint Arthro/Inj: L knee joint 04/23/2025 2:40 PM The procedure site was prepped in the usual sterile fashion. Site: L knee joint Medications: 6 mg betamethasone acetate-betamethasone sodium phosphate 6 mg/mL Anesthetics: 5 mL lidocaine (PF) 10 mg/mL (1 %) Outcome: Tolerated well, no immediate complications Post-injection instructions were reviewed with the patient and the patient voiced understanding of these instructions. Informed Consent Consent Obtained: Verbal [place] Protocol A moment to CARE was completed. SIGN IN Sign in communication not applicable due to emergent procedure. Personnel directly involved with the procedure wore the appropriate PPE. Special Equipment: N/A Patient/Surrogate Stated/Verified: Patient name, Date of , Relevant allergies and Intended procedure TIME OUT Relevant labs, photos, and/or imaging studies have been reviewed. Consent documented and matches the intended procedure. Correct side/site marked and visible. Medications required for procedure verified. No fire risk assessment and interventions applicable. No implant(s) inserted. SIGN OUT No specimen collected. All instruments, equipment, possible retained foreign bodies accounted for. No post-procedure POC communication to the patient's multidisciplinary team (including the bedside nurse for hospitalized patients) applicable. Referring Provider: NILDA KIM [[id number]] Allergies As of Date: 04/23/2025 (No Known Allergies) Date Reviewed: 04/23/2025 Reviewed by: Arabella Cohen MA - Fully Assessed Reason for Visit: Follow Up [171] Primary Visit Diagnosis:Primary osteoarthritis of left knee [M17.12] Order(s):Large Joint Arthro/Inj: L knee joint [TRE425] Order #: [id number] [] betamethasone acetate-betamethasone sodium phosphate 6 mg injection (CELESTONE)Disp: Rfl: [] lidocaine (PF) 10 mg/mL (1 %) 5 mL injection (XYLOCAINE)Disp: Rfl: Prescriptions as of 04/23/2025 - gabapentin (NEURONTIN) 100 mg capsule Take 1 capsule by mouth two times a day for 180 days. Taking for tremors - glipiZIDE (GLUCOTROL XL) 2.5 mg 24 hr tablet Take 1 tablet by mouth once daily. Taking Diabetes - metFORMIN (GLUCOPHAGE) 500 mg tablet Take 1 tablet by mouth two times a day with meals. . - sildenafil (VIAGRA) 100 mg tablet Take 1 tablet by mouth once daily as needed. Take 30-60 minutes before sexual activity. - empagliflozin (JARDIANCE) 25 mg tablet Take 1 tablet by mouth once daily. Take 1 tablet once daily in the morning - tamsulosin (FLOMAX) 0.4 mg Take 1 capsule by mouth once daily. - CPAP/BIPAP/OTHER Type .CPAPSettings into a note to see current settings/supplies/DME information. - lisinopril (ZESTRIL) 10 mg tablet Take 1 tablet by mouth once daily. - albuterol HFA (PROVENTIL HFA, VENTOLIN HFA) 90 mcg/actuation inhaler Inhale 2 Puffs as instructed every 6 hours as needed for wheezing/shortness of breath. - rosuvastatin (CRESTOR) 40 mg tablet Take 1 tablet by mouth daily at bedtime. For cholesterol. - nitroglycerin sublingual (NITROQUICK) 0.4 mg SL tablet Dissolve 1 tablet under the tongue as needed for chest pain. - metoprolol tartrate, short acting, (LOPRESSOR) 25 mg tablet Take 1 tablet by mouth two times a day. - Fenofibrate (LOFIBRA) 160 mg tablet Take 1 tablet by mouth once daily. - furosemide (LASIX) 20 mg tablet Take 1 tablet by mouth once daily. From [facility]. - potassium chloride (K-TAB) 10 mEq tablet Take 1 tablet by mouth daily with breakfast. From [facility]. - ranolazine SR (RANEXA) 1,000 mg tab ER 12 hr Take 1 tablet by mouth twice daily. Per CARDIOLOGY. - aspirin, enteric coated (ECOTRIN LOW STRENGTH) 81 mg EC tablet Take 1 tablet by mouth once daily. Problem List As Of Date 04/23/2025 Noted Resolved Mixed hyperlipidemia [E78.2] BPH w/o urinary obs/LUTS [N40.0] 07/28/2007 03/04/2012 Type 2 diabetes mellitus with stage 3a chronic *09/26/2022 Unstable angina (HCC) [I20.0] 03/04/2012 03/15/2012 SUMMARY [V999.95] 03/04/2012 03/16/2012 Smoking [DDG6475] 03/04/2012 03/04/2012 Hypertension [I10] 03/04/2012 10/06/2017 Alcohol abuse [F10.10] 03/05/2012 03/16/2012 CAD (coronary artery disease), squaxin coronary *03/05/2012 Stented coronary artery [Z95.5] 03/08/2012 Unstable angina [I20.0] 07/28/2013more content not included)... Normal [facility] Large Joint Arthro/Inj: L nicolle ee jointon 04-23-2025 Nilda Kim PA -C 04/23/2025 2:40 PM Large Joint Arthro/Inj: L knee joint 04/23/2025 2:40 PM The procedure site was prepped in the usual sterile fashion. Site: L knee joint Medications: 6 mg betamethasone acetate-betamethasone sodium phosphate 6 mg/mL Anesthetics: 5 mL lidocaine (PF) 10 mg/mL (1 %) Outcome: Tolerated well, no immediate complications Post-injection instructions were reviewed with the patient and the patient voiced understanding of these instructions. Informed Consent Consent Obtained: Verbal [place] Protocol A moment to CARE was completed. SIGN IN Sign in communication not applicable due to emergent procedure. Personnel directly involved with the procedure wore the appropriate PPE. Special Equipment: N/A Patient/Surrogate Stated/Verified: Patient name, Date of , Relevant allergies and Intended procedure TIME OUT Relevant labs, photos, and/or imaging studies have been reviewed. Consent documented and matches the intended procedure. Correct side/site marked and visible. Medications required for procedure verified. No fire risk assessment and interventions applicable. No implant(s) inserted. SIGN OUT No specimen collected. All instruments, equipment, possible retained foreign bodies accounted for. No post-procedure POC communication to the patient's multidisciplinary team (including the bedside nurse for hospitalized patients) applicable. [facility] CNOVon 04-10-2025 CNOV Office Visit (INTMWS ) XAVI CABELLO ([id number]) 1955 M Date Time Provider Department 04/10/25 1:40 PM LIAT SMITH INTMWS During your visit today, we recorded the following information about you: Pulse Respiration Blood pressure Weight 68/minute 14/minute 126/72 99.9 kg Height 1.69 m Liat Smith, HIGH 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 04/10/2025 2:24 PM Signed Xavi Dempseybull is a 70 year old male here for a Medicare wellness visit. Medicare Health Risk Assessment General Health Good Exercise: Minutes/Day 0 min Exercise: Days/Week 0 days Alcohol: Daily Use Never Alcohol: Drinks/Day Patient does not drink Alcohol: 6 or more drinks Never Feel off balance No Concerns: Teeth/Dentures No Concerns: Sexual function No Troubled by feelings None of the above Frequency: Eating healthy diet Nearly every day ADLs requiring help None of the above Safety precautions in home/vehicle Yes Smoke, vape, chews tobacco No Difficulty hearing No Difficulty seeing No Current Providers Specialists: I have reviewed specialist-related care of the patient in the medical record. Current care team: Patient Care Team: Grant Krause MD as PCP - Mo Parsons MD as Physician (Cardiology) Liat Smith APRN.BOB as Cover Operator (Internal Medicine) Dr. Joseph-podiatry [facility] Medical/Family history review Reviewed and updated problem list, medical/surgical/family /social history, medications, and allergies. Opioid use review Opioid Medications (last 90 days) No data to display Anxiety/Depression screening PHQ-2 Score: 0 (Lower risk for depression) MAT-2 Score: 0 Recommendation: no further intervention at this time Cognitive screening Mini Cog Score: 2 Cognitive screening reviewed and Recommended referral for further evaluation (score 0-2). Functional Observation Was the patient's Timed Up AND Go test unsteady or >= 12 seconds? No Advance Care Planning Surrogate decision maker documented and/or advance directives scanned in chart Measurements BP 126/72 Pulse 68 Resp 14 Ht 169 cm (5' 6.54) Wt 99.9 kg (220 lb 3.8 oz) SpO2 96% BMI 34.98 kg/m? Vision Screening: Follows with optometry/ophthalmology Assessment/Plan Medicare annual wellness visit, subsequent (Z00.00) - Counseled on healthy diet and regular exercise - Fall avoidance information provided - Personalized prevention plan provided - Discussed need for and benefit of weight loss. BMI 34.98 kg/(m2) Additional Concerns The following concerns were also discussed with the patient: Memory Concerns: - Reports so-so memory. - Taking an OTC memory supplement. Type 2 Diabetes Mellitus: - Last A1c: 6.2%. - Taking glipizide, Jardiance, and metformin. - Recently reduced metformin dosage from 2 tablets BID to 1 tablet BID, reporting improved symptoms. - Denies checking blood glucose levels at home. Hypertension: - Taking lisinopril and metoprolol. - Denies checking blood pressure at home. Review of Systems Constitutional: Negative for fatigue. Respiratory: Negative for cough, shortness of breath and wheezing. Cardiovascular: Negative for chest pain, palpitations and leg swelling. Objective: BP 126/72 Pulse 68 Resp 14 Ht 169 cm (5' 6.54) Wt 99.9 kg (220 lb 3.8 oz) SpO2 96% BMI 34.98 kg/m? Physical Exam Vitals reviewed. Constitutional: Appearance: Normal appearance. Cardiovascular: Rate and Rhythm: Normal rate and regular rhythm. Heart sounds: Normal heart sounds. No murmur heard. Pulmonary: Effort: Pulmonary effort is normal. Breath sounds: Normal breath sounds. No wheezing, rhonchi or rales. Skin: General: Skin is warm and dry. Neurological: Mental Status: He is alert. Psychiatric: Mood and Affect: Mood normal. DATA REVIEWED: Most recent labs Assessment/Plan: 1. Medicare annual wellness visit, subsequent (Z00.00) See medicare wellness 2. Oral dyskinesia (G24.4) Gabapentin refilled 3. Type 2 diabetes mellitus with stage 3a chronic kidney disease, without long-term current use of insulin (HCC) (E11.22) - Last HbA1c was 6.2%. - Currently managed with glipizide, Jardiance, and metformin. - Patient reduced metformin dosage to 500 mg BID due to gastrointestinal side effects; updated medication list accordingly. - Refills for gabapentin and glipizide provided. - Patient not currently monitoring blood glucose at home. 4. Cognitive deficits (R41.89) - Scored 2 out of 5 on memory test, indicating potential cognitive issues. - Referred to Dr. Aguirre, a specialist in geriatric cognitive disorders, for further evaluation. - Appointment to be scheduled in the afternoon as per patient's preference. 5. Essential hypertension (I10) - Managed with lisinopril and metoprolol. - Patient not currently monitoring blood pressure at home. 6. Enco (more content not included)... Normal [facility] Comprehensive metabolic 2000 panelon 04-10-2025 Albumin [Mass/Vol] 4.2 g/dL 3.9 - 4.9 g/dL [facility] ALP [Catalytic activity/Vol] 42 U/L 38 - 113 U/L [facility] ALT [Catalytic activity/Vol] 15 U/L 10 - 54 U/L [facility] Anion gap [Moles/Vol] 13 mmol/L 8 - 15 mmol/L [facility] AST [Catalytic activity/Vol] 26 U/L 14 - 40 U/L [facility] Bilirubin [Mass/Vol] 0.4 mg/dL 0.2 - 1 .3 mg/dL [facility] Calcium [Mass/Vol] 9.5 mg/dL 8.5 - 10. 2 mg/dL [facility] Chloride [Moles/Vol] 101 mmol/L 98 - 10 7 mmol/L [facility] CO2 [Moles/Vol] 24 mmol/L 22 - 30 mmol/L [facility] Creatinine [Mass/Vol] 1.21 mg/dL 0.73 - 1.22 mg/dL [facility] GFR/1.73 sq M.predicted among non-blacks MDRD (S/P/Bld) [Vol rate/Area] 64 mL/min/{1.73_m2} - PINF [facility] Comment on above: Estimated Glomerular Filtration Rate (eGFR) is calculated using the 2020 CKD-EPI creatinine equation. This equation utilizes serum creatinine, sex, and age as parameters. The creatinine assay has traceable calibration to isotope dilution-mass spectrometry. Refer to KDIGO guidelines for clinical interpretation. In patients with unstable renal function, e.g. those with acute kidney injury, the eGFR may not accurately reflect actual GFR. Glucose [Mass/Vol] 141 mg/dL High 74 - 99 mg/dL [facility] Comment on above: The [place] Diab[employer] s Association (ADA) provides guidance for cutoff values for fasting glucose and random glucose. The ADA defines fasting as no caloric intake for at least 8 hours. Fasting plasma glucose results between 100 to 125 mg/dL indicate increased risk for diabetes (prediabetes). Fasting plasma glucose results greater than or equal to 126 mg/dL meet the criteria for diagnosis of diabetes. In the absence of unequivocal hyperglycemia, results should be confirmed by repeat testing. In a patient with classic symptoms of hyperglycemia or hyperglycemic crisis, random plasma glucose results greater than or equal to 200 mg/dL meet the criteria for diagnosis of diabetes. Reference: Standards of Medical Care in Diabetes 2016, [place] Diabetes Association. Diabetes Care. 2016.39(Suppl 1). Interpretation and review of laboratory results Abnormal [facility] Potassium [Moles/Vol] 4.9 mmol/L 3.7 - 5.1 mmol/L [facility] Protein [Mass/Vol] 6.9 g/dL 6.3 - 8.0 g/dL [facility] Sodium [Moles/Vol] 138 mmol/L 136 - 144 mmol/L [facility] Urea nitrogen [Mass/Vol] 19 mg/dL 9 - 24 mg/dL [facility] Albumin [Mass/Vol] 4.2 g/dL Normal 3.9-4.9 [facility] Comment on above: Order Comment: Speci men Type: BLOOD SPECIMENOrdering Facility: [facility] Address: [address] [place] [address] Performed By: #### 2 4323-8 ####[facility] LABCLIA [id number] [place] [address] [place] ALP [Catalytic activity/Vol] 42 U/L Normal 38-113 [facility] Comment on above: Order Comment: Speci men Type: BLOOD SPECIMENOrdering Facility: [facility] Address: [address] [place] [address] Performed By: #### 2 4323-8 ####[facility] LABCLIA [id number] [place] [address] [place] ALT [Catalytic activity/Vol] 15 U/L Normal 10-54 [facility] Comment on above: Order Comment: Speci men Type: BLOOD SPECIMENOrdering Facility: [facility] Address: [address] [place] [address] Performed By: #### 2 4323-8 ####[facility] LABCLIA [id number] [facility] [place] [id number] [place] Anion gap [Moles/Vol] 13 mmol/L Normal 8-15 [facility] Comment on above: Order Comment: Speci men Type: BLOOD SPECIMENOrdering Facility: [facility] Address: [address] [place] [address] Performed By: #### 2 4323-8 ####[facility] LABCLIA [id number] [address] [place] [address] [place] AST [Catalytic activity/Vol] 26 U/L Normal 14-40 [facility] Comment on above: Order Comment: Speci men Type: BLOOD SPECIMENOrdering Facility: [facility] Address: [address] [place] [address] Performed By: #### 2 4323-8 ####[facility] LABCLIA [id number] [place] [id number] [place] Bilirubin [Mass/Vol] 0.4 mg/dL Normal 0.2-1.3 [facility] Comment on above: Order Comment: Speci men Type: BLOOD SPECIMENOrdering Facility: [facility] Address: [address] [place] [address] Performed By: #### 2 4323-8 ####[facility] LABCLIA [id number] [place] [id number] [place] Calcium [Mass/Vol] 9.5 mg/dL Normal 8.5-10.2 [facility] Comment on above: Order Comment: Speci men Type: BLOOD SPECIMENOrdering Facility: [facility] Address: [address] [place] [address] Performed By: #### 2 4323-8 ####[facility] LABCLIA [id number] [facility] [place] [id number] [place] Chloride [Moles/Vol] 101 mmol/L Normal 98-107 [facility] Comment on above: Order Comment: Speci men Type: BLOOD SPECIMENOrdering Facility: [facility] Address: [address] [place] [address] Performed By: #### 2 4323-8 ####[facility] LABCLIA [id number] [facility] [place] [id number] [place] CO2 [Moles/Vol] 24 mmol/L Normal 22-30 [facility] Comment on above: Order Comment: Speci men Type: BLOOD SPECIMENOrdering Facility: [facility] Address: [address] [place] [id number] Performed By: #### 2 4323-8 ####[facility] LABIA [id number] [place] [id number] [place] Creatinine [Mass/Vol] 1.21 mg/dL Normal 0.73-1.22 [facility] Comment on above: Order Comment: Speci men Type: BLOOD SPECIMENOrdering Facility: [facility] Address: [address] [place] [address] Performed By: #### 2 4323-8 ####[facility] LABIA [id number] [place] [address] [place] eGFRcr SerPlBld CKD-EPI 2020 64 mL/min/1.73m??? Normal >=60 [facility] Comment on above: Order Comment: Speci men Type: BLOOD SPECIMENOrdering Facility: [facility] Address: [address] [place] [address] Result Comment: Alryn mated Glomerular Filtration Rate (eGFR) is calculated using the 2020 CKD-EPI creatinine equation. This equation utilizes serum creatinine, sex, and age as parameters. The creatinine assay has traceable calibration to isotope dilution-mass spectrometry. Refer to KDIGO guidelines for clinical interpretation. In patients with unstable renal function, e.g. those with acute kidney injury, the eGFR may not accurately reflect actual GFR. Performed By: #### 2 4323-8 ####[facility] LABIA [id number] [place] [id number] [place] Glucose [Mass/Vol] 141 mg/dL High 74-99 [facility] Comment on above: Order Comment: Speci men Type: BLOOD SPECIMENOrdering Facility: [facility] Address: [address] [place] [address] Result Comment: The [place] Diabetes Association (ADA) provides guidance for cutoff values for fasting glucose and random glucose. The ADA defines fasting as no caloric intake for at least 8 hours. Fasting plasma glucose results between 100 to 125 mg/dL indicate increased risk for diabetes (prediabetes). Fasting plasma glucose results greater than or equal to 126 mg/dL meet the criteria for diagnosis of diabetes. In the absence of unequivocal hyperglycemia, results should be confirmed by repeat testing. In a patient with classic symptoms of hyperglycemia or hyperglycemic crisis, random plasma glucose results greater than or equal to 200 mg/dL meet the criteria for diagnosis of diabetes. Reference: Standards of Medical Care in Diabetes 2016, [place] Diabetes Association. Diabetes Care. 2016.39(Suppl 1). Performed By: #### 2 4323-8 ####[facility] LABCLIA [id number] [address] [address] [place] Potassium [Moles/Vol] 4.9 mmol/L Normal 3.7-5.1 [facility] Comment on above: Order Comment: Speci men Type: BLOOD SPECIMENOrdering Facility: [facility] Address: [address] [place] [address] Performed By: #### 2 4323-8 ####[facility] LABIA [id number] [place] [id number] [place] Protein [Mass/Vol] 6.9 g/dL Normal 6.3-8.0 [facility] Comment on above: Order Comment: Speci men Type: BLOOD SPECIMENOrdering Facility: [facility] Address: [address] [place] [address] Performed By: #### 2 4323-8 ####[facility] LABCLIA [id number] [address] [address] [place] Sodium [Moles/Vol] 138 mmol/L Normal 136-144 [facility] Comment on above: Order Comment: Speci men Type: BLOOD SPECIMENOrdering Facility: [facility] Address: [address] [place] [address] Performed By: #### 2 4323-8 ####[facility] LABCLIA [id number] [address] [address] [place] Urea nitrogen [Mass/Vol] 19 mg/dL Normal 9-24 [facility] Comment on above: Order Comment: Mariana sinclair Type: BLOOD SPECIMENOrdering Facility: [facility] Address: [address] [place] [address] Performed By: #### 2 4323-8 ####[facility] LABIA [id number] [place] [id number] [facility] HbA1c (Bld)on 04-10-2025 Average glucose Estimated from glycated hemoglobin (Bld) [Mass/Vol] 157 mg/dL Normal [facility] Comment on above: Order Comment: Mariana sinclair Type: BLOOD SPECIMENOrdering Facility: [facility] Address: [address] [place] [address] Result Comment: eAG: (Estimated average glucose) is a calculated value from HgbA1c and is payable representative of the average blood glucose level in the last 2-3 month period. Performed By: #### 5 5454-3 ####[facility] [id number] [address] STATES [facility] HbA1c (Bld) [Mass fraction] 7.1 % High 4.3-5.6 [facility] Comment on above: Order Comment: Mariana sinclair Type: BLOOD SPECIMENOrdering Facility: [facility] Address: [address] [place] [address] Result Comment: [place] Diabetes Association guidelines indicate that patients with HgbA1c in the range 5.7-6.4% are at increased risk for development of diabetes, and intervention by lifestyle modification may be beneficial. HgbA1c greater or equal to 6.5% is considered diagnostic of diabetes. Performed By: #### 5 5454-3 ####[facility] [id number] [place] [id number] [facility] CNOVon 02-15-2025 CNOV Office Visit (SLEWST ) XAVI CABELLO ([id number]) 1955 M Date Time Provider Department 02/15/25 2:30 PM TITO EVANS During your visit today, we recorded the following information about you: Pulse Respiration Blood pressure Weight 78/minute 16/minute 119/80 101.3 kg Tito Evans APRN.CNP 02/15/2025 5:39 PM Signed [facility] Follow up/ Established patient visit Date of last visit : 12/04/2024 The following Impression/Plan was copied and pasted from the patient's last [facility] Disorders [facility] visit on 12/04/24: IMPRESSION/PLAN: G47.33 ALBAN on CPAP (primary encounter diagnosis) Xavi Cabello is a 69 year old male with PMH of moderate to severe ALBAN on autoCPAP, DM2, BPH, HTN, obesity, HLD, aortic valve stenosis, CAD, dyslipidemia, cardiac stent We discussed ALBAN, PAP therapy. Answered his questions about hypoglossal nerve stimulation ([employer]). Recommend he continue PAP therapy since he tolerates it. We will look at his residual AHI when he comes in for follow up. - Continue Auto CPAP at 5-15 cmH2O. DME [employer] - Remember to clean your mask and equipment regularly, as directed. - You should be eligible for new supplies approximately every 3-6 months, depending on your insurance coverage. Contact your Durable Medical Equipment (DME) company for new supplies as needed. - Follow up in 6-8 weeks for 31-90 day PAP compliance visit Tito Evans APRN.BRAKE MACHINE OPERATOR Recording using blueKiwi software for draft documentation of the visit was discussed with the patient/authorized payable representative; all questions welcomed and answered. Patient/authorized payable representative agreed to proceed Here for follow up for ALBAN, this was scheduled for a 31-90 day PAP compliance visit for his replacement device. - Moderate to Severe Sleep Apnea - Patient is a 70-year-old male presenting with concerns about moderate sleep apnea, which becomes severe when sleeping on his back. - He was prescribed an auto CPAP with a pressure range of [address] Krause and picked it up eventually, though he does not recall the exact date. - Patient has not been able to use the new machine yet and is experiencing difficulties with its setup, particularly with adding water and starting the machine. - He prefers the old machine but acknowledges it is no longer functional. - Patient is considering the possibility of needing a hospital-based sleep study to reassess his condition. His last PSG was in 2018 and used 3% scoring. He now has Medicare. - Sleep Difficulties - Patient reports intermittent trouble sleeping. - He uses gummies from [employer] to help fall asleep, initially taking one but now takes two for better effect. - Typically goes to bed around 02:00 or 03:00 and wakes up between 11:00 and 13:00. - He wakes up 1-2 times per night, though not consistently every night. - Describes himself as a night owl and occasionally takes naps during the day. Usually sleeps on back or left side SLEEP APNEA Sleep apnea type : ALBAN, Most Recent Apnea-Hypopnea Index (AHI): 15.1 (3%) in 2018 at [facility] Treatment : PAP therapy DME: [facility] Current PAP settin-15 cm H2O. PATIENT-ENTERED QUESTIONNAIRE SLEEP SCORES 07/28/2018 09/15/2018 Insomnia Severity Index Score 11 13 07/28/2018 09/15/2018 PHQ-9 Score 2 5 04/20/2017 04/20/2017 07/28/2018 PROMIS Global Health - (T-Scores - the mean of general population = 50. Five points is a clinically meaningful difference.) Physical T-Score 42.3 42.3 42.3 Mental T-Score 43.5 43.5 45.8 ALLERGIES No Known Allergies CURRENT MEDICATIONS: empagliflozin (JARDIANCE) 25 mg tablet Take 1 tablet by mouth once daily. Take 1 tablet once daily in the morning tamsulosin (FLOMAX) 0.4 mg Take 1 capsule by mouth once daily. CPAP/BIPAP/OTHER Type .CPAPSettings into a note to see current settings/supplies/DME information. lisinopril (ZESTRIL) 10 mg tablet Take 1 tablet by mouth once daily. albuterol HFA (PROVENTIL HFA, VENTOLIN HFA) 90 mcg/actuation inhaler Inhale 2 Puffs as instructed every 6 hours as needed for wheezing/shortness of breath. glipiZIDE (GLUCOTROL XL) 2.5 mg 24 hr tablet Take 1 tablet by mouth once daily. rosuvastatin (CRESTOR) 40 mg tablet Take 1 tablet by mouth daily at bedtime. For cholesterol. gabapentin (NEURONTIN) 100 mg capsule Take 1 capsule by mouth two times a day for 180 days. nitroglycerin sublingual (NITROQUICK) 0.4 mg SL tablet Dissolve 1 tablet under the tongue as needed for chest pain. sildenafil (VIAGRA) 100 mg tablet Take 1 tablet by mouth once daily as needed. Take 30-60 minutes before sexual activity. metoprolol tartrate, short acting, (LOPRESSOR) 25 mg tablet Take 1 tablet by mouth two times a day. Fenofibrate (LOFIBRA) 160 mg tablet Take 1 tablet by mouth once daily. metFORMIN (GLUCOPHAGE) 500 mg tablet Take 2 tab (more content not included)... Normal [facility] CNOVon 01-15-2025 CNOV Office Visit (ORTHWS ) XAVI CABELLO ([id number]) 1955 Date Time Provider Department 01/15/25 1:30 PM NILDA KIM During your visit today, we recorded the following information about you: Arabella Cohen MA 01/15/2025 1:43 PM Signed AMB ROOMING INTAKE FLOWSHEET DATA Pain Pain Level: 3 Pain Location: Knee-Left Description: Aching Duration Amount of Time: (ongoing) Frequency: Continuous Intervention/Comfort measure: Other: See comment (none) 14 weeks post visit OA left knee with injection given. He got good relief and would like a repeat injection. Nilda Kim PA-C 01/15/2025 1:43 PM Signed Large Joint Arthro/Inj: L knee joint 01/15/2025 1:43 PM The procedure site was prepped in the usual sterile fashion. Site: L knee joint Medications: 6 mg betamethasone acetate-betamethasone sodium phosphate 6 mg/mL Anesthetics: 5 mL lidocaine (PF) 10 mg/mL (1 %) Outcome: Tolerated well, no immediate complications Post-injection instructions were reviewed with the patient and the patient voiced understanding of these instructions. Informed Consent Consent Obtained: Verbal [place] Protocol A moment to CARE was completed. SIGN IN Sign in communication not applicable due to emergent procedure. Personnel directly involved with the procedure wore the appropriate PPE. Special Equipment: N/A Patient/Surrogate Stated/Verified: Patient name, Date of , Relevant allergies and Intended procedure TIME OUT Relevant labs, photos, and/or imaging studies have been reviewed. Consent documented and matches the intended procedure. Correct side/site marked and visible. Medications required for procedure verified. No fire risk assessment and interventions applicable. No implant(s) inserted. SIGN OUT No specimen collected. All instruments, equipment, possible retained foreign bodies accounted for. No post-procedure POC communication to the patient's multidisciplinary team (including the bedside nurse for hospitalized patients) applicable. Referring Provider: NILDA KIM [[id number]] Allergies As of Date: 01/15/2025 (No Known Allergies) Date Reviewed: 01/15/2025 Reviewed by: Arabella Cohen MA - Fully Assessed Reason for Visit: Established Patient [175] Follow Up [171] Primary Visit Diagnosis:Primary osteoarthritis of left knee [M17.12] Order(s):Large Joint Arthro/Inj: L knee joint [EHS658] Order #: [id number] [] betamethasone acetate-betamethasone sodium phosphate 6 mg injection (CELESTONE)Disp: Rfl: [] lidocaine (PF) 10 mg/mL (1 %) 5 mL injection (XYLOCAINE)Disp: Rfl: Prescriptions as of 01/15/2025 - empagliflozin (JARDIANCE) 25 mg tablet Take 1 tablet by mouth once daily. Take 1 tablet once daily in the morning - tamsulosin (FLOMAX) 0.4 mg Take 1 capsule by mouth once daily. - CPAP/BIPAP/OTHER Type .CPAPSettings into a note to see current settings/supplies/DME information. - lisinopril (ZESTRIL) 10 mg tablet Take 1 tablet by mouth once daily. - albuterol HFA (PROVENTIL HFA, VENTOLIN HFA) 90 mcg/actuation inhaler Inhale 2 Puffs as instructed every 6 hours as needed for wheezing/shortness of breath. - glipiZIDE (GLUCOTROL XL) 2.5 mg 24 hr tablet Take 1 tablet by mouth once daily. - rosuvastatin (CRESTOR) 40 mg tablet Take 1 tablet by mouth daily at bedtime. For cholesterol. - gabapentin (NEURONTIN) 100 mg capsule Take 1 capsule by mouth two times a day for 180 days. - nitroglycerin sublingual (NITROQUICK) 0.4 mg SL tablet Dissolve 1 tablet under the tongue as needed for chest pain. - sildenafil (VIAGRA) 100 mg tablet Take 1 tablet by mouth once daily as needed. Take 30-60 minutes before sexual activity. - metoprolol tartrate, short acting, (LOPRESSOR) 25 mg tablet Take 1 tablet by mouth two times a day. - Fenofibrate (LOFIBRA) 160 mg tablet Take 1 tablet by mouth once daily. - metFORMIN (GLUCOPHAGE) 500 mg tablet Take 2 tablets by mouth two times a day with meals. . - furosemide (LASIX) 20 mg tablet Take 1 tablet by mouth once daily. From [facility]. - potassium chloride (K-TAB) 10 mEq tablet Take 1 tablet by mouth daily with breakfast. From [facility]. - ranolazine SR (RANEXA) 1,000 mg tab ER 12 hr Take 1 tablet by mouth twice daily. Per CARDIOLOGY. - aspirin, enteric coated (ECOTRIN LOW STRENGTH) 81 mg EC tablet Take 1 tablet by mouth once daily. Medication notes this encounter METFORMIN 500 MG TABLET >> Arabella Cohen MA 01/15/2025 1:30 PM >> ARABELLA COHEN WedJan 15, 2025 1:30 PM Patient is taking 1 in the am and 1 in the pm Problem List As Of Date 01/15/2025 Noted Resolved Mixed hyperlipidemia [E78.2] BPH w/o urinary obs/LUTS [N40.0] 07/28/2007 03/04/2012 Type 2 diabetes mellitus with stage 3a chronic *09/26/2022 Unstable angina (HCC) [I20.0] 03/04/2012 03/15/2012 SUMMARY [V999.95] (more content not included)... Normal [facility] Large Joint Arthro/Inj: L nicolle ee jointon 01-15-2025 VeNilda hwang PA -C 01/15/2025 1:43 PM Large Joint Arthro/Inj: L knee joint 01/15/2025 1:43 PM The procedure site was prepped in the usual sterile fashion. Site: L knee joint Medications: 6 mg betamethasone acetate-betamethasone sodium phosphate 6 mg/mL Anesthetics: 5 mL lidocaine (PF) 10 mg/mL (1 %) Outcome: Tolerated well, no immediate complications Post-injection instructions were reviewed with the patient and the patient voiced understanding of these instructions. Informed Consent Consent Obtained: Verbal [place] Protocol A moment to CARE was completed. SIGN IN Sign in communication not applicable due to emergent procedure. Personnel directly involved with the procedure wore the appropriate PPE. Special Equipment: N/A Patient/Surrogate Stated/Verified: Patient name, Date of , Relevant allergies and Intended procedure TIME OUT Relevant labs, photos, and/or imaging studies have been reviewed. Consent documented and matches the intended procedure. Correct side/site marked and visible. Medications required for procedure verified. No fire risk assessment and interventions applicable. No implant(s) inserted. SIGN OUT No specimen collected. All instruments, equipment, possible retained foreign bodies accounted for. No post-procedure POC communication to the patient's multidisciplinary team (including the bedside nurse for hospitalized patients) applicable. [facility] CNOVon 12-04-2024 CNOV Office Visit (SLEWST ) XAVI CABELLO ([id number]) 1955 M Date Time Provider Department 12/04/24 2:30 PM TITO EVANS During your visit today, we recorded the following information about you: Pulse Respiration Blood pressure Weight 74/minute 18/minute 103/72 100.9 kg Tito Evans APRN.CNP 12/04/2024 3:06 PM Signed [facility] New Patient Evaluation PATIENT NAME: Xavi Cabello DATE OF SERVICE: December 03, 2024 CONSULTING PROVIDER: Grant Krause [address] [facility] [address] REASON FOR CONSULT: Grant Krause sends the patient for an opinion about ALBAN. My findings and recommendations will be transmitted electronically via shared medical record to the consulting provider. HPI: Xavi Cabello is a 69 year old male. Sleep-related history: moderate ALBAN, exacerbated to severe in supine sleep, Dr Krause wrote a prescription for a replacement autoCPAP 5-15 cmH2O, pt says he is picking it up from [facility] today. He says he uses his CPAP nightly, except for the last month when his machine quit working. No marijuana or alcohol for 2 yrs SLEEP-WAKE SCHEDULE Bedtime: 2-3 AM. He does not have a hard time falling asleep. Takes a gummy to help him sleep (gets at [employer], doesn't know the ingredients). Wake time: 11 AM to 1 PM After falling asleep: he wakes up 1-2 time(s) per night, because of the need to urinate. On weekends, he maintains the same sleep schedule. Average total sleep time (in a 24 hour period): 8-10 hours. SLEEP-RELATED DETAILS Preferred sleep position: side or back Breathing disturbances and other behaviors during sleep: probably snores. GERD or aspiration: No Waking up with heart pounding or racing: No Anxiety or rumination: No He does not report having an urge to move the legs in the evening (when resting) that is accompanied or caused by uncomfortable and/or unpleasant sensations in the legs. He has not been told that he has leg kicking during sleep. He denies any history of parasomnias. Daytime sleepiness is not a problem. He does not report sleep paralysis but has had sleep-related hallucinations WAKE-RELATED DETAILS He does not work. He does have difficulty with memory or concentration. He denies falling asleep or dozing off when driving. He does not take naps. He does not drink caffeinated beverages. There has not been a recent change in weight. Patient Questionnaires Sleep Scores 09/15/2018 Insomnia Severity Index Score 13 09/15/2018 PHQ-9 Score 5 07/28/2018 PROMIS Global Health - (T-Scores - the mean of general population = 50. Five points is a clinically meaningful difference.) Physical T-Score 42.3 Mental T-Score 45.8 PAST TREATMENTS: AutoPAP 5-15 cmH2O PRIOR SLEEP STUDIES: 08/30/2018 PSG at [facility]: AHI 15.1, supine 33.0 PAST MEDICAL HISTORY Diagnosis Date Alcohol abuse 03/05/2012 Arthritis Asthma BPH with obstruction/lower urinary tract symptoms 12/11/2015 CAD (coronary artery disease), squaxin coronary artery 03/05/2012 COPD (chronic obstructive pulmonary disease) ([facility]) COVID-19 04/24/2022 Hypertension Hypertrophy of prostate without urinary obstruction and other lower urinary tract symptoms (LUTS) 07/28/2007 Left knee pain Marijuana use Nocturnal hypoxia 10/06/2017 Obesity (BMI 30-39.9) Obstructive sleep apnea 10/06/2017 DME [facility] Other and unspecified hyperlipidemia Stented coronary artery 03/08/2012 Tubular adenoma of colon 08/03/2012 Type 2 diabetes mellitus with stage 3a chronic kidney disease, without long-term current use of insulin ([facility]) 09/26/2022 Type II or unspecified type diabetes mellitus without mention of complication, not stated as uncontrolled 09/05/2007 Unstable angina ([facility]) 07/28/2013 PAST SURGICAL HISTORY Procedure Laterality Date COLONOSCOPY 09/23/2022 poor bowel prep-repeat in 1 year COLONOSCOPY 08/25/2023 repeat 5 years COLONOSCOPY FLX DX W/COLLJ SPEC WHEN PFRMD 08/03/2012 Colonoscopy COLONOSCOPY FLX DX W/COLLJ SPEC WHEN PFRMD 12/16/2016 Colonoscopy mac EYE SURGERY HX HERNIA REPAIR HX LEFT HEART CATH,PERCUTANEOUS 07/31/2013 Cardiac cath, L heart LEFT HEART CATH,PERCUTANEOUS 07/23/2015 Cardiac cath, L heart PAST SURGICAL HISTORY OF 1968 circumcision PAST SURGICAL HISTORY OF Left 1968 eye surgery left eye only PAST SURGICAL HISTORY OF 03/24/2004 Umbilical hernia repair TONSILLECTOMY AND ADENOIDECTOMY TONSILLECTOMY HX TRANSCATH STENT INIT VESSEL,PERCUT 03/07/2012 Transcath stent init vessel percut ACTIVE PROBLEM LIST Mixed Hyperlipidemia Type 2 Diabetes Mellitus With Stage 3a Chronic Kidney Disease, Without Long-Term Current Use of Insulin ([facility]) Cad (Coronary Artery Disease), [place] Coronary Artery Stented Coronary Artery Bph With Obstruction/Lower Urinary Tract Symptoms Anastasia (more content not included)... Normal [facility] CNOVon 11-28-2024 CNOV Office Visit (PODIWS ) XAVI CABELLO ([id number]) 1955 M Date Time Provider Department 11/28/24 1:45 PM MARGARITO JOSEPH PODIWS During your visit today, we recorded the following information about you: Lupis Ramirez LPN 11/28/2024 2:39 PM Signed AMB ROOMING INTAKE FLOWSHEET DATA Patient presents with: Left Foot - Established Patient, Diabetic Foot Care Right Foot - Established Patient, Diabetic Foot Care YUN Linder Matthew 11/28/2024 2:26 PM Signed Diabetes Foot Care Instructions When you have diabetes, proper foot care is very important. Poor foot care may lead to amputation of a foot or leg. As a person with diabetes, you are more vulnerable to foot problems, because diabetes can damage your nerves and reduce blood flow to your feet. Here are some diabetes foot care tips to follow: Wash and Dry Your Feet Daily Use mild soaps Use warm water Pat your skin dry; do not rub. Thoroughly dry your feet. After washing, use lotion on your feet to prevent cracking. Do not put lotion between your toes. Examine Your Feet Each Day Check the tops and bottoms of your feet. Have someone else look at your feet if you cannot see them. Check for dry, cracked skin. Look for blisters, cuts, scratches, or other sores. Check for redness, increased warmth, or tenderness when touching any area of your feet. Check for ingrown toenails, corns, and calluses. If you get a blister or sore from your shoes, do not pop it. Apply a bandage and wear a different pair of shoes. Take Care of Your Toenails Cut toenails after bathing, when they are soft. Cut toenails straight across and smooth with a nail file. Avoid cutting into the corners of toes. Do not cut cuticles. If you have neuropathy (or decreased sensation in your feet) a director data processing should always cut your toenails. Be Careful When Exercising Walk and exercise in comfortable shoes. Do not exercise when you have open sores on your feet. Protect Your Feet With Shoes and Socks Never go barefoot. Always protect your feet by wearing shoes or hard-soled slippers or footwear. Avoid shoes with high heels and pointed toes. Avoid shoes that expose your toes or heels (such as open-toed shoes or sandals). These types of shoes increase your risk for injury and potential infections. Try on new footwear with the type of socks you usually wear. Do not wear new shoes for more than an hour at a time. Change your socks daily. Look and feel inside your shoes before putting them on to make sure there are no foreign objects or rough areas. Avoid tight socks. Wear natural-fiber socks (cotton, wool, or a cotton-wool blend). Wear special shoes if your health care provider recommends them. Wear shoes/boots that will protect your feet from various weather conditions (cold, moisture, etc.). Make sure your shoes fit properly. If you have neuropathy (nerve damage), you may not notice that your shoes are too tight. Perform the footwear test described below. Footwear Test Use this simple test to see if your shoes fit correctly: Stand on a piece of paper. (Make sure you are standing and not sitting, because your foot changes shape when you stand.) Trace the outline of your foot. Trace the outline of your shoe. Compare the tracings: Is the shoe too narrow? Is your foot crammed into the shoe? The shoe should be at least 1/2 inch longer than your longest toe and as wide as your foot. Proper Shoe Choices The following types of shoes are best for people with diabetes Closed toes and heels Leather uppers without a seam inside At least 1/2 inch extra space at the end of your longest toe Inside of shoe should be soft with no rough areas Outer sole should be made of stiff material Shoes should be at least as wide as your feet Tips for Foot Care in Diabetes Don't wait to treat a minor foot problem if you have diabetes. Follow your health care provider's guidelines and first aid guidelines. Report foot injuries and infections to your health care provider immediately. Check water temperature with your elbow, not your foot. Do not use a heating pad on your feet. Do not cross your legs. Do not self-treat your corns, calluses, or other foot problems. Go to your health care provider or director data processing to treat these conditions. Margarito Joseph 11/28/2024 2:39 PM Signed Last saw pcp: 10/09/24 Subjective: Patient presents to clinic c/o painful toenails. They state that the nails are especially painful with shoe gear and pressure. Patient states that nails 1-5 b/l are painful. Patient admits to being diabetic. No other pedal complaints at this time. Patient states no change in medications or medical history since last visit. Objective: Patient presents to clinic ambulating in sneaker Vasc: DP and PT pulses are palpable bilateral. CFT is less than 5 secon (more content not included)... Normal [facility] 11-09-2024 CNPN Telephone (PODIWS) XAVI CABELLO ([id number]) 1955 M Date Time Provider Department 11/09/24 MAGRARITO JOSEPH PODIWS During your visit today, we recorded the following information about you: Martha Meza LPN 11/09/2024 10:14 AM Signed Patient calling with influenza-like symptoms. Would like to reschedule his appointment this afternoon to next week if possible? He prefers afternoons. He is reachable at [phone]. YUN Garcia Amelia, LPN 11/09/2024 10:40 AM Signed Patient is rescheduled for 11/28/2024. Lupis Ramirez LPN Allergies As of Date: 11/09/2024 (No Known Allergies) Date Reviewed: 11/02/2024 Reviewed by: Johanny Palomo LPN - Fully Assessed Reason for Visit: Appointment [186] Prescriptions as of 11/09/2024 - empagliflozin (JARDIANCE) 25 mg tablet Take 1 tablet by mouth once daily. Take 1 tablet once daily in the morning - tamsulosin (FLOMAX) 0.4 mg Take 1 capsule by mouth once daily. - CPAP/BIPAP/OTHER Type .CPAPSettings into a note to see current settings/supplies/DME information. - lisinopril (ZESTRIL) 10 mg tablet Take 1 tablet by mouth once daily. - albuterol HFA (PROVENTIL HFA, VENTOLIN HFA) 90 mcg/actuation inhaler Inhale 2 Puffs as instructed every 6 hours as needed for wheezing/shortness of breath. - glipiZIDE (GLUCOTROL XL) 2.5 mg 24 hr tablet Take 1 tablet by mouth once daily. - rosuvastatin (CRESTOR) 40 mg tablet Take 1 tablet by mouth daily at bedtime. For cholesterol. - gabapentin (NEURONTIN) 100 mg capsule Take 1 capsule by mouth two times a day for 180 days. - nitroglycerin sublingual (NITROQUICK) 0.4 mg SL tablet Dissolve 1 tablet under the tongue as needed for chest pain. - sildenafil (VIAGRA) 100 mg tablet Take 1 tablet by mouth once daily as needed. Take 30-60 minutes before sexual activity. - metoprolol tartrate, short acting, (LOPRESSOR) 25 mg tablet Take 1 tablet by mouth two times a day. - Fenofibrate (LOFIBRA) 160 mg tablet Take 1 tablet by mouth once daily. - metFORMIN (GLUCOPHAGE) 500 mg tablet Take 2 tablets by mouth two times a day with meals. . - furosemide (LASIX) 20 mg tablet Take 1 tablet by mouth once daily. From [facility]. - potassium chloride (K-TAB) 10 mEq tablet Take 1 tablet by mouth daily with breakfast. From [facility]. - ranolazine SR (RANEXA) 1,000 mg tab ER 12 hr Take 1 tablet by mouth twice daily. Per CARDIOLOGY. - CPAP Settings 5 - 15 cm H2O, suitable mask per pt preference, chin strap, head gear, humidity, tubing, lifetime supplies. G47.33 Obstructive Sleep Apnea - aspirin, enteric coated (ECOTRIN LOW STRENGTH) 81 mg EC tablet Take 1 tablet by mouth once daily. Problem List As Of Date 11/09/2024 Noted Resolved Mixed hyperlipidemia [E78.2] BPH w/o urinary obs/LUTS [N40.0] 07/28/2007 03/04/2012 Type 2 diabetes mellitus with stage 3a chronic *09/26/2022 Unstable angina (HCC) [I20.0] 03/04/2012 03/15/2012 SUMMARY [V999.95] 03/04/2012 03/16/2012 Smoking [F17.200] 03/04/2012 03/04/2012 Hypertension [I10] 03/04/2012 10/06/2017 Alcohol abuse [F10.10] 03/05/2012 03/16/2012 CAD (coronary artery disease), squaxin coronary *03/05/2012 Stented coronary artery [Z95.5] 03/08/2012 Unstable angina [I20.0] 07/28/2013 09/06/2013 BPH with obstruction/lower urinary tract sympto*12/11/2015 Lower urinary tract symptoms (LUTS) [R39.9] 12/11/2015 05/04/2018 Marijuana use [F12.90] Obesity (BMI 30-39.9) [E66.9] 07/30/2021 Essential hypertension [I10] 12/13/2015 Male erectile dysfunction, unspecified [N52.9] 06/11/2016 Tubular adenoma of colon [D12.6] 08/03/2012 ALBAN on CPAP [G47.33] 10/06/2017 Nocturnal hypoxia [G47.34] 10/06/2017 Bronchitis with bronchospasm [J20.9] 01/19/2019 Erectile dysfunction [N52.9] 01/20/2019 Obesity, Class I, BMI 30-34.9 [E66.811] 08/16/2019 10/08/2023 Tinnitus [H93.19] 07/30/2021 Oral dyskinesia [G24.4] 05/11/2022 Primary osteoarthritis of left knee [M17.12] 05/11/2022 Obesity, Class II, BMI 35-39.9 [E66.812] 04/02/2023 History of colonic polyps [Z86.0100] 08/25/2023 Encounter Status:Closed by LUPIS RAMIREZ on 11/09/24 Normal [facility] CNOVon 11-02-2024 CNOV Office Visit (INTMWS ) XAVI CABELLO ([id number]) 1955 M Date Time Provider Department 11/02/24 2:00 PM GRANT KRAUSE INTMWS During your visit today, we recorded the following information about you: Temperature Pulse Respiration Blood pressure Normal [facility] CNPNon 10-24-2024 CNPN Telephone (4CQ) XAVI CABELLO ([id number]) 1955 M Date Time Provider Department 10/24/24 GRANT KRAUSE 4CQ During your visit today, we recorded the following information about you: Olga Oquendo 10/24/2024 4:36 PM Signed Patient is in need of CPAP supplies and possibly a new machine as his was making a noise and after taking it to [facility] advised patient that he may need a new machine. Patient was also told that he would need to transfer his CPAP and supplies over to [facility] due to insurance. Patient did schedule with Tito Evans for 12/04 as he has not been seen by them since 2018 Grant Krause MD 10/26/2024 5:25 PM Signed Schedule sooner appointment with sleep medicine or here if machine is not operational. Rufina Jerome MA 10/26/2024 7:05 PM Addendum No sooner new patient sleep appointment available. Patient is still scheduled with sleep 3/10. Insurance also may require patient to complete a new sleep study since it's been over 5 years to qualify for a new machine. Please advise if patient is able to schedule with PCP team to get new supplies in the mean time? ALY Patel Victor H, MD 10/27/2024 1:18 PM Signed Schedule PCP appointment if CPAP is inoperable. Amber Valdes OCCA 10/30/2024 2:01 PM Signed In review of chart, patient is scheduled with PCP to discuss CPAP issues on 11/01. MELINDA Sauceda Allergies As of Date: 10/24/2024 (No Known Allergies) Date Reviewed: 10/09/2024 Reviewed by: Lupis Ramirez LPN - Fully Assessed Reason for Visit: Patient Update [1234] Cmt: CPAP supplies Prescriptions as of 10/30/2024 - lisinopril (ZESTRIL) 10 mg tablet Take 1 tablet by mouth once daily. - albuterol HFA (PROVENTIL HFA, VENTOLIN HFA) 90 mcg/actuation inhaler Inhale 2 Puffs as instructed every 6 hours as needed for wheezing/shortness of breath. - glipiZIDE (GLUCOTROL XL) 2.5 mg 24 hr tablet Take 1 tablet by mouth once daily. - rosuvastatin (CRESTOR) 40 mg tablet Take 1 tablet by mouth daily at bedtime. For cholesterol. - gabapentin (NEURONTIN) 100 mg capsule Take 1 capsule by mouth two times a day for 180 days. - nitroglycerin sublingual (NITROQUICK) 0.4 mg SL tablet Dissolve 1 tablet under the tongue as needed for chest pain. - sildenafil (VIAGRA) 100 mg tablet Take 1 tablet by mouth once daily as needed. Take 30-60 minutes before sexual activity. - metoprolol tartrate, short acting, (LOPRESSOR) 25 mg tablet Take 1 tablet by mouth two times a day. - Fenofibrate (LOFIBRA) 160 mg tablet Take 1 tablet by mouth once daily. - metFORMIN (GLUCOPHAGE) 500 mg tablet Take 2 tablets by mouth two times a day with meals. . - tamsulosin (FLOMAX) 0.4 mg Take 1 capsule by mouth once daily. - furosemide (LASIX) 20 mg tablet Take 1 tablet by mouth once daily. From [facility]. - potassium chloride (K-TAB) 10 mEq tablet Take 1 tablet by mouth daily with breakfast. From [facility]. - empagliflozin (JARDIANCE) 25 mg tablet Take 1 tablet by mouth once daily. Take 1 tablet once daily in the morning - ranolazine SR (RANEXA) 1,000 mg tab ER 12 hr Take 1 tablet by mouth twice daily. Per CARDIOLOGY. - CPAP Settings 5 - 15 cm H2O, suitable mask per pt preference, chin strap, head gear, humidity, tubing, lifetime supplies. G47.33 Obstructive Sleep Apnea - aspirin, enteric coated (ECOTRIN LOW STRENGTH) 81 mg EC tablet Take 1 tablet by mouth once daily. Problem List As Of Date 10/24/2024 Noted Resolved Mixed hyperlipidemia [E78.2] BPH w/o urinary obs/LUTS [N40.0] 07/28/2007 03/04/2012 Type 2 diabetes mellitus with stage 3a chronic *09/26/2022 Unstable angina (HCC) [I20.0] 03/04/2012 03/15/2012 SUMMARY [V999.95] 03/04/2012 03/16/2012 Smoking [F17.200] 03/04/2012 03/04/2012 Hypertension [I10] 03/04/2012 10/06/2017 Alcohol abuse [F10.10] 03/05/2012 03/16/2012 CAD (coronary artery disease), squaxin coronary *03/05/2012 Stented coronary artery [Z95.5] 03/08/2012 Unstable angina [I20.0] 07/28/2013 09/06/2013 Benign prostatic hyperplasia without lower urin*12/11/2015 Lower urinary tract symptoms (LUTS) [R39.9] 12/11/2015 05/04/2018 Marijuana use [F12.90] Obesity (BMI 30-39.9) [E66.9] 07/30/2021 Essential hypertension [I10] 12/13/2015 Male erectile dysfunction, unspecified [N52.9] 06/11/2016 Tubular adenoma of colon [D12.6] 08/03/2012 Obstructive sleep apnea [G47.33] 10/06/2017 Nocturnal hypoxia [G47.34] 10/06/2017 Bronchitis with bronchospasm [J20.9] 01/19/2019 Erectile dysfunction [N52.9] 01/20/2019 Obesity, Class I, BMI 30-34.9 [E66.811] 08/16/2019 10/08/2023 Tinnitus [H93.19] 07/30/2021 Oral dyskinesia [G24.4] 05/11/2022 Primary osteoarthritis of left knee [M17.12] 05/11/2022 Obesity, Class II, BMI 35-39.9 [E66.812] 04/02/2023 History of colonic polyps [Z86.0100] 08/25/2023 (more content not included)... Normal [facility] ALBUMIN/CREATININE RATIO, UR INEon 10-09-2024 Albumin DL <= 20 mg/L (U) [Mass/Vol] mg/dL Normal [facility] Comment on above: Order Comment: Speci men Type: URINE SPECIMENOrdering Facility: [facility] Address: [address] [place] [address] Performed By: #### U ACR ####[facility] LABCLIA [id number] [place] [address] [place] Albumin/Creatinine (U) [Mass ratio] <12 Normal <30 [facility] Comment on above: Order Comment: Chrisi men Type: URINE SPECIMENOrdering Facility: [facility] Address: [address] [place] [address] Result Comment: Adul t Male and Female Nephrotic Criteria: <30 mg/g is considered normal to mildly increased 30-300 mg/g is considered moderately increased >300 mg/g is considered severely increased KDIGO. (2013). KDIGO 2012 Clinical Practice Guideline for the Evaluation and Management of Chronic Kidney Disease. Official Journal of the International Society of Nephrology, 3(1), 1-150. Performed By: #### U ACR ####[facility] LABCLIA [id number] [place] [address] [place] Creatinine (U) [Mass/Vol] 102.9 mg/dL Normal 20.0-300.0 [facility] Comment on above: Order Comment: Chrisi men Type: URINE SPECIMENOrdering Facility: [facility] Address: [address] [id number] Performed By: #### U ACR ####[facility] LABCLIA [id number] [facility] [id number] [address] [place] Basic metabolic 2000 panelon 10-09-2024 Anion gap [Moles/Vol] 8 mmol/L Normal 8-15 [facility] Comment on above: Order Comment: Speci men Type: BLOOD SPECIMENOrdering Facility: [facility] Address: [address] [place] [address] Performed By: #### 2 4321-2 ####[facility] MILLTOWNCLIA [id number] [place] [address] [place] Calcium [Mass/Vol] 9.8 mg/dL Normal 8.5-10.2 [facility] Comment on above: Order Comment: Speci men Type: BLOOD SPECIMENOrdering Facility: [facility] Address: [address] [place] [address] Performed By: #### 2 4321-2 ####[facility] MILLTOWNCLIA [id number] [place] [address] [place] Chloride [Moles/Vol] 100 mmol/L Normal 98-107 [facility] Comment on above: Order Comment: Speci men Type: BLOOD SPECIMENOrdering Facility: [facility] Address: [address] [place] [address] Performed By: #### 2 4321-2 ####[facility] MILLTOWNCLIA [id number] [place] [address] [place] CO2 [Moles/Vol] 28 mmol/L Normal 22-30 [facility] Comment on above: Order Comment: Speci men Type: BLOOD SPECIMENOrdering Facility: [facility] Address: [address] [place] [address] Performed By: #### 2 4321-2 ####[facility] MILLTOWNCLIA [id number] [place] [address] [place] Creatinine [Mass/Vol] 1.21 mg/dL Normal 0.73-1.22 [facility] Comment on above: Order Comment: Mariana sinclair Type: BLOOD SPECIMENOrdering Facility: [facility] Address: [address] [place] [address] Performed By: #### 2 4321-2 ####[facility] [id number] [place] [address] [place] Creatinine and Glomerular filtration rate.predicted panel (S/P/Bld) 64 mL/min/1.73m??? Normal >=60 [facility] Comment on above: Order Comment: Mariana sinclair Type: BLOOD SPECIMENOrdering Facility: [facility] Address: [address] [place] [address] Result Comment: Arlyn mated Glomerular Filtration Rate (eGFR) is calculated using the 2020 CKD-EPI creatinine equation. This equation utilizes serum creatinine, sex, and age as parameters. The creatinine assay has traceable calibration to isotope dilution-mass spectrometry. Refer to KDIGO guidelines for clinical interpretation. In patients with unstable renal function, e.g. those with acute kidney injury, the eGFR may not accurately reflect actual GFR. Performed By: #### 2 4321-2 ####[facility] [id number] [place] [address] [place] Glucose [Mass/Vol] 120 mg/dL High 74-99 [facility] Comment on above: Order Comment: Mariana sinclair Type: BLOOD SPECIMENOrdering Facility: [facility] Address: [address] [place] [address] Result Comment: The [place] Diabetes Association (ADA) provides guidance for cutoff values for fasting glucose and random glucose. The ADA defines fasting as no caloric intake for at least 8 hours. Fasting plasma glucose results between 100 to 125 mg/dL indicate increased risk for diabetes (prediabetes). Fasting plasma glucose results greater than or equal to 126 mg/dL meet the criteria for diagnosis of diabetes. In the absence of unequivocal hyperglycemia, results should be confirmed by repeat testing. In a patient with classic symptoms of hyperglycemia or hyperglycemic crisis, random plasma glucose results greater than or equal to 200 mg/dL meet the criteria for diagnosis of diabetes. Reference: Standards of Medical Care in Diabetes 2016, [place] Diabetes Association. Diabetes Care. 2016.39(Suppl 1). Performed By: #### 2 4321-2 ####[facility] [id number] [place] [address] [place] Potassium [Moles/Vol] 4.7 mmol/L Normal 3.7-5.1 [facility] Comment on above: Order Comment: Mariana sinclair Type: BLOOD SPECIMENOrdering Facility: [facility] Address: [address] [place] [address] Performed By: #### 2 4321-2 ####[facility] [id number] [place] [address] [place] Sodium [Moles/Vol] 136 mmol/L Normal 136-144 [facility] Comment on above: Order Comment: Mariana sinclair Type: BLOOD SPECIMENOrdering Facility: [facility] Address: [address] [place] [address] Performed By: #### 2 4321-2 ####[facility] [id number] [place] [address] [place] Urea nitrogen [Mass/Vol] 20 mg/dL Normal 9-24 [facility] Comment on above: Order Comment: Mariana sinclair Type: BLOOD SPECIMENOrdering Facility: [facility] Address: [address] [place] [address] Performed By: #### 2 4321-2 ####[facility] [id number] [place] [address] [place] CNOVon 10-09-2024 CNOV Office Visit (ORTHWS ) DESTINEYXAVI Mamta ([id number]) 1955 M Date Time Provider Department 10/09/24 3:00 PM NILDA KIM During your visit today, we recorded the following information about you: Lupis Ramirez LPN 10/09/2024 3:36 PM Signed AMB ROOMING INTAKE FLOWSHEET DATA Patient presents with: Left Knee - Established Patient, Follow Up, Injections YUN Linder Sondra, PA-C 10/09/2024 3:36 PM Signed Large Joint Arthro/Inj: L knee joint Informed Consent Consent Obtained: Verbal [place] Protocol A moment to CARE was completed. SIGN IN Sign in communication not applicable due to emergent procedure. Personnel directly involved with the procedure wore the appropriate PPE. Special Equipment: N/A Patient/Surrogate Stated/Verified: Patient name, Date of , Relevant allergies and Intended procedure TIME OUT Relevant labs, photos, and/or imaging studies have been reviewed. Intended patient and procedure match the source document(s). Consent documented and matches the intended procedure. Correct side/site marked and visible. Medications required for procedure verified. No fire risk assessment and interventions applicable. No implant(s) inserted.10/09/2024 3:35 PM The procedure site was prepped in the usual sterile fashion. Site: L knee joint Medications: 6 mg betamethasone acetate-betamethasone sodium phosphate 6 mg/mL Anesthetics: 5 mL lidocaine (PF) 10 mg/mL (1 %) Outcome: Tolerated well, no immediate complications Post-injection instructions were reviewed with the patient and the patient voiced understanding of these instructions. SIGN OUT No specimen collected. All instruments, equipment, possible retained foreign bodies accounted for. Post-procedure follow-up management communicated and Plan of Care Visit completed when applicable Referring Provider: NILDA KIM [[id number]] Allergies As of Date: 10/09/2024 (No Known Allergies) Date Reviewed: 10/09/2024 Reviewed by: Lupis Ramirez LPN - Fully Assessed Reason for Visit: Established Patient [175] Follow Up [171] Injections [199] Primary Visit Diagnosis:Primary osteoarthritis of left knee [M17.12] Order(s):Large Joint Arthro/Inj: L knee joint [LQF409] Order #: [id number] [] betamethasone acetate-betamethasone sodium phosphate 6 mg injection (CELESTONE)Disp: Rfl: [] lidocaine (PF) 10 mg/mL (1 %) 5 mL injection (XYLOCAINE)Disp: Rfl: Prescriptions as of 10/09/2024 - glipiZIDE (GLUCOTROL XL) 2.5 mg 24 hr tablet Take 1 tablet by mouth once daily. - rosuvastatin (CRESTOR) 40 mg tablet Take 1 tablet by mouth daily at bedtime. For cholesterol. - gabapentin (NEURONTIN) 100 mg capsule Take 1 capsule by mouth two times a day for 180 days. - nitroglycerin sublingual (NITROQUICK) 0.4 mg SL tablet Dissolve 1 tablet under the tongue as needed for chest pain. - sildenafil (VIAGRA) 100 mg tablet Take 1 tablet by mouth once daily as needed. Take 30-60 minutes before sexual activity. - albuterol HFA (PROVENTIL HFA, VENTOLIN HFA) 90 mcg/actuation inhaler Inhale 2 Puffs as instructed every 6 hours as needed for wheezing/shortness of breath. - metoprolol tartrate, short acting, (LOPRESSOR) 25 mg tablet Take 1 tablet by mouth two times a day. - Fenofibrate (LOFIBRA) 160 mg tablet Take 1 tablet by mouth once daily. - metFORMIN (GLUCOPHAGE) 500 mg tablet Take 2 tablets by mouth two times a day with meals. . - lisinopril (ZESTRIL) 10 mg tablet Take 1 tablet by mouth once daily. - tamsulosin (FLOMAX) 0.4 mg Take 1 capsule by mouth once daily. - furosemide (LASIX) 20 mg tablet Take 1 tablet by mouth once daily. From [facility]. - potassium chloride (K-TAB) 10 mEq tablet Take 1 tablet by mouth daily with breakfast. From [facility]. - empagliflozin (JARDIANCE) 25 mg tablet Take 1 tablet by mouth once daily. Take 1 tablet once daily in the morning - ranolazine SR (RANEXA) 1,000 mg tab ER 12 hr Take 1 tablet by mouth twice daily. Per CARDIOLOGY. - CPAP Settings 5 - 15 cm H2O, suitable mask per pt preference, chin strap, head gear, humidity, tubing, lifetime supplies. G47.33 Obstructive Sleep Apnea - aspirin, enteric coated (ECOTRIN LOW STRENGTH) 81 mg EC tablet Take 1 tablet by mouth once daily. Problem List As Of Date 10/09/2024 Noted Resolved Mixed hyperlipidemia [E78.2] BPH w/o urinary obs/LUTS [N40.0] 07/28/2007 03/04/2012 Type 2 diabetes mellitus with stage 3a chronic *09/26/2022 Unstable angina (HCC) [I20.0] 03/04/2012 03/15/2012 SUMMARY [V999.95] 03/04/2012 03/16/2012 Smoking [F17.200] 03/04/2012 03/04/2012 Hypertension [I10] 03/04/2012 10/06/2017 Alcohol abuse [F10.10] 03/05/2012 03/16/2012 CAD (coronary artery disease), [place] coronary *03/05/2012 Stented coronary artery [Z95.5] 03/08/2012 Unstable angina [I20.0] 07/28/2013 09/06/2013 Benign pro (more content not included)... Normal [facility] Office Visit (INTMWS ) XAVI CABELLO ([id number]) 1955 M Date Time Provider Department 10/09/24 1:00 PM GRANT KRAUSE INTMWS During your visit today, we recorded the following information about you: Temperature Pulse Respiration Blood pressure 98.1 degrees 64/minute 16/minute 118/76 Weight 101 kg Grant Krause MD 10/09/2024 1:45 PM Signed This note was created using NoteWriter. Subjective Xavimonster Cabello is a 69 year old male. He was doing well and was only concerned about a lesion on his right earlobe present for a year or so. No rapid growth, pain, or bleeding was noted. He had not done his labs but will do them today. Review of Systems Constitutional: Negative for fatigue and fever. Respiratory: Negative for chest tightness and shortness of breath. Cardiovascular: Negative for chest pain, palpitations and leg swelling. ACTIVE PROBLEM LIST Mixed Hyperlipidemia Type 2 Diabetes Mellitus With Stage 3a Chronic Kidney Disease, Without Long-Term Current Use of Insulin (Hcc) Cad (Coronary Artery Disease), [place] Coronary Artery Stented Coronary Artery Benign Prostatic Hyperplasia Without Lower Urinary Tract Symptoms Marijuana Use Essential Hypertension Male Erectile Dysfunction, Unspecified Tubular Adenoma of Colon Obstructive Sleep Apnea Nocturnal Hypoxia Bronchitis With Bronchospasm Erectile Dysfunction Tinnitus Oral Dyskinesia Primary Osteoarthritis of Left Knee Obesity, Class II, Bmi 35-39.9 History of Colonic Polyps Social History Tobacco Use - Smoking status: Never - Smokeless tobacco: Never Vaping Use - Vaping status: Never Used Substance Use Topics - Alcohol use: Not Currently Comment: sober over year - Drug use: Not Currently Types: Marijuana Comment: sober over year Current Outpatient Medications Medication Sig - glipiZIDE (GLUCOTROL XL) 2.5 mg 24 hr tablet Take 1 tablet by mouth once daily. - nitroglycerin sublingual (NITROQUICK) 0.4 mg SL tablet Dissolve 1 tablet under the tongue as needed for chest pain. - sildenafil (VIAGRA) 100 mg tablet Take 1 tablet by mouth once daily as needed. Take 30-60 minutes before sexual activity. - albuterol HFA (PROVENTIL HFA, VENTOLIN HFA) 90 mcg/actuation inhaler Inhale 2 Puffs as instructed every 6 hours as needed for wheezing/shortness of breath. - metoprolol tartrate, short acting, (LOPRESSOR) 25 mg tablet Take 1 tablet by mouth two times a day. - Fenofibrate (LOFIBRA) 160 mg tablet Take 1 tablet by mouth once daily. - metFORMIN (GLUCOPHAGE) 500 mg tablet Take 2 tablets by mouth two times a day with meals. . - lisinopril (ZESTRIL) 10 mg tablet Take 1 tablet by mouth once daily. - tamsulosin (FLOMAX) 0.4 mg Take 1 capsule by mouth once daily. - furosemide (LASIX) 20 mg tablet Take 1 tablet by mouth once daily. From [facility]. - potassium chloride (K-TAB) 10 mEq tablet Take 1 tablet by mouth daily with breakfast. From [facility]. - empagliflozin (JARDIANCE) 25 mg tablet Take 1 tablet by mouth once daily. Take 1 tablet once daily in the morning - ranolazine SR (RANEXA) 1,000 mg tab ER 12 hr Take 1 tablet by mouth twice daily. Per CARDIOLOGY. - CPAP Settings 5 - 15 cm H2O, suitable mask per pt preference, chin strap, head gear, humidity, tubing, lifetime supplies. G47.33 Obstructive Sleep Apnea - aspirin, enteric coated (ECOTRIN LOW STRENGTH) 81 mg EC tablet Take 1 tablet by mouth once daily. - rosuvastatin (CRESTOR) 40 mg tablet Take 1 tablet by mouth daily at bedtime. For cholesterol. - gabapentin (NEURONTIN) 100 mg capsule Take 1 capsule by mouth two times a day for 180 days. No current facility-administered medications for this visit. Objective BP 118/76 (BP Site: Left Arm, BP Position: Sitting, BP Cuff Size: Large Adult) Pulse 64 Temp 36.7 ?C (98.1 ?F) (Temporal) Resp 16 Wt 101 kg (222 lb 10.6 oz) BMI 35.67 kg/m? Physical Exam Constitutional: General: He is not in acute distress. HENT: Ears: Comments: Greenish seborrheic lesion edge of right ear lobe ~4 x 3 mm. Cardiovascular: Rate and Rhythm: Normal rate and regular rhythm. Heart sounds: No murmur heard. No gallop. Pulmonary: Breath sounds: Normal breath sounds. Musculoskeletal: Right lower leg: No edema. Left lower leg: No edema. Neurological: Mental Status: He is alert. Cranial Nerves: No facial asymmetry. Comments: No oral dyskinesia. Assessment and Plan 1. Seborrheic keratosis - ICD9: 702.19, ICD10: L82.1 (primary diagnosis) - Right ear lobe. Observe only. Consider LN if bothersome. 2. Controlled type 2 diabetes mellitus without complication, without long-term current use of insulin (HCC) - ICD9: 250.00, ICD10: E11.9 - Control undetermined, due for labs - Continue current medications 3. Mixed hyperlipidemia - ICD9: 272.2, ICD10: E78.2 - Control undetermined, du (more content not included)... Normal [facility] HbA1c (Bld)on 10-09-2024 Average glucose Estimated from glycated hemoglobin (Bld) [Mass/Vol] 131 mg/dL Normal [facility] Comment on above: Order Comment: Mariana sinclair Type: BLOOD SPECIMENOrdering Facility: [facility] Address: [address] [place] [address] Result Comment: eAG: (Estimated average glucose) is a calculated value from HgbA1c and is payable representative of the average blood glucose level in the last 2-3 month period. Performed By: #### 5 5454-3 ####[facility] [id number] [place] [address] [place] [facility] HbA1c (Bld) [Mass fraction] 6.2 % High 4.3-5.6 [facility] Comment on above: Order Comment: Mariana sinclair Type: BLOOD SPECIMENOrdering Facility: [facility] Address: [address] [place] [address] Result Comment: [place] Diabetes Association guidelines indicate that patients with HgbA1c in the range 5.7-6.4% are at increased risk for development of diabetes, and intervention by lifestyle modification may be beneficial. HgbA1c greater or equal to 6.5% is considered diagnostic of diabetes. Performed By: #### 5 5454-3 ####[facility] [id number] [address] [place] Large Joint Arthro/Inj: L kn ee jointon 10-09-2024 Nilda Kim PA -C 10/09/2024 3:36 PM Large Joint Arthro/Inj: L knee joint Informed Consent Consent Obtained: Verbal [place] Protocol A moment to CARE was completed. SIGN IN Sign in communication not applicable due to emergent procedure. Personnel directly involved with the procedure wore the appropriate PPE. Special Equipment: N/A Patient/Surrogate Stated/Verified: Patient name, Date of , Relevant allergies and Intended procedure TIME OUT Relevant labs, photos, and/or imaging studies have been reviewed. Intended patient and procedure match the source document(s). Consent documented and matches the intended procedure. Correct side/site marked and visible. Medications required for procedure verified. No fire risk assessment and interventions applicable. No implant(s) inserted.10/09/2024 3:35 PM The procedure site was prepped in the usual sterile fashion. Site: L knee joint Medications: 6 mg betamethasone acetate-betamethasone sodium phosphate 6 mg/mL Anesthetics: 5 mL lidocaine (PF) 10 mg/mL (1 %) Outcome: Tolerated well, no immediate complications Post-injection instructions were reviewed with the patient and the patient voiced understanding of these instructions. SIGN OUT No specimen collected. All instruments, equipment, possible retained foreign bodies accounted for. Post-procedure follow-up management communicated and Plan of Care Visit completed when applicable [facility] Lipid 1996 panelon 5 Cholesterol [Mass/Vol] 154 mg/dL Normal <200 [facility] Comment on above: Order Comment: Mariana sinclair Type: BLOOD SPECIMENOrdering Facility: [facility] Address: [address] [place] [address] Result Comment: <200 mg/dL, Desirable 200-239 mg/dL, Borderline high >239 mg/dL, High Performed By: #### 2 4331-1 ####[facility]CL[facility] [id number] [address] [id number] [place] [address] [place] Cholesterol in HDL [Mass/Vol] 52 mg/dL Normal >39 [facility] Comment on above: Order Comment: Mariana sinclair Type: BLOOD SPECIMENOrdering Facility: [facility] Address: [address] [place] [address] Result Comment: 40-5 9 mg/dL, Acceptable >59 mg/dL, High: Negative risk factor for coronary heart disease <40 mg/dL, Low: Positive risk factor for coronary heart disease Performed By: #### 2 4331-1 ####[facility] [id number] [address] [id number] [place] [address] [place] Cholesterol in LDL [Mass/Vol] 79 mg/dL Normal <100 [facility] Comment on above: Order Comment: Speci men Type: BLOOD SPECIMENOrdering Facility: [facility] Address: [address] [place] [address] Result Comment: <100 mg/dL, Optimal 100-129 mg/dL, Near optimal/above optimal 130-159 mg/dL, Borderline high 160-189 mg/dL, High >189 mg/dL, Very high Secondary prevention optimal LDL Cholesterol levels are recommended to be < 70 mg/dL Performed By: #### 2 4331-1 ####[facility] LABIA [id number] [address] [id number] [place] [address] [place] Cholesterol in LDL/Cholesterol in HDL [Mass ratio] 1.52 {ratio} Normal <2.54 [facility] Comment on above: Order Comment: Mariana men Type: BLOOD SPECIMENOrdering Facility: [facility] Address: [address] [place] [address] Result Comment: Refe rence: 1. National Cholesterol Education Program ATP III Guideline At-A-Glance Quick Desk Reference: National Heart, Lung, and Blood [place]. National Institutes of Health. 2001: NIH Publication No. 01-3305. 2. An International Atherosclerosis Society position paper: global recommendations for the management of dyslipidemia: executive summary, Atherosclerosis. 2014: 232(2):410-413. Performed By: #### 2 4331-1 ####[facility] [id number] [address] [id number] [place] [address] [place] Cholesterol in VLDL [Mass/Vol] 23 mg/dL Normal <30 [facility] Comment on above: Order Comment: Chrisi men Type: BLOOD SPECIMENOrdering Facility: [facility] Address: [address] [place] [address] Performed By: #### 2 4331-1 ####[facility]CL[facility] [id number] [place] [id number] [facility] [id number] [place] [address] [place] Cholesterol non HDL [Mass/Vol] 102 mg/dL Normal <130 [facility] Comment on above: Order Comment: Speci men Type: BLOOD SPECIMENOrdering Facility: [facility] Address: [address] [place] [address] Result Comment: <130 mg/dL, Optimal 130-159 mg/dL, Near optimal/above optimal 160-189 mg/dL, Borderline high 190-219 mg/dL, High >219 mg/dL, Very high Secondary prevention optimal non HDL Cholesterol levels are recommended to be <100 mg/dL Performed By: #### 2 4331-1 ####[facility] [id number] [address] [id number] [place] [address] [place] Cholesterol.total/Cho lesterol in HDL [Mass ratio] 2.96 {ratio} Normal <5.10 [facility] Comment on above: Order Comment: Speci men Type: BLOOD SPECIMENOrdering Facility: [facility] Address: [address] [place] [address] Performed By: #### 2 4331-1 ####[facility] [id number] [address] [id number] [place] [address] [place] FASTING TIME 13 hrs Normal [facility] Comment on above: Order Comment: Speci men Type: BLOOD SPECIMENOrdering Facility: [facility] Address: [address] [place] [address] Performed By: #### 2 4331-1 ####[facility] [id number] [place] [id number] [facility] [id number] [place] [address] [place] Triglyceride [Mass/Vol] 116 mg/dL Normal <150 [facility] Comment on above: Order Comment: Speci men Type: BLOOD SPECIMENOrdering Facility: [facility] Address: [address] [place] [address] Result Comment: <150 mg/dL, Normal 150-199 mg/dL, Borderline high 200-499 mg/dL, High >499 mg/dL, Very high Performed By: #### 2 4331-1 ####[facility] [id number] [address] [id number] [address] [place] CNOVon 10-06-2024 CNOV Office Visit (PODIWS ) XAVI CABELLO ([id number]) 1955 M Date Time Provider Department 10/06/24 1:00 PM MARGARITO JOSEPH PODIWS During your visit today, we recorded the following information about you: Lupis Ramirez LPN 10/06/2024 1:17 PM Signed AMB ROOMING INTAKE FLOWSHEET DATA Patient presents with: Left Foot - Established Patient, Diabetic Foot Care, Swelling Right Foot - Established Patient, Diabetic Foot Care YUN Linder Matthew 10/06/2024 1:17 PM Signed Last saw pcp: 07/19/24 Subjective: Patient presents to clinic c/o painful toenails. They state that the nails are especially painful with shoe gear and pressure. Patient states that nails 1-5 b/l are painful. Patient admits to being diabetic. No other pedal complaints at this time. Patient states no change in medications or medical history since last visit. Objective: Patient presents to clinic ambulating in [facility] Vasc: DP and PT pulses are palpable bilateral. CFT is less than 5 seconds bilateral. Skin temperature is warm to cool proximal to distal bilateral. There is moderate edema or varicosities noted. Neuro: Protective sensation is intact to the foot and toes when tested with the 5.07 SWM bilateral. Vibratory sensation is absent at the hallux IPJ bilateral. The hallux is downgoing bilateral. Derm: Nails 1-5 b/l are painful, discolored-yellow, thick, crumbly, dystrophic and with subungal debris. Skin is of normal turgor, texture and hair growth is present bilateral. There are no hyperkeratosis, ulcerations, scars, verruca or other lesions noted. Ortho: Muscle strength is 5/5 for all pedal groups tested. Ankle joint DF is full with the knee extended with no pain or crepitus noted. 1st MPJ ROM is decreased bilateral. Bunion is present to b/l feet. Assessment: (B35.1) Onychomycosis (primary encounter diagnosis) (M79.675) Pain in toe of left foot (M79.674) Pain in toe of right foot (E11.42) Diabetic polyneuropathy associated with type 2 diabetes mellitus (HCC) (M20.10) Acquired hallux valgus, unspecified laterality (M20.12) Hallux valgus of left foot Plan: Patient was seen and evaluated. Nails 1-5 bilateral were debrided in length and thickness. Patient was instructed on the continued importance of diabetic foot care along with proper diet and keeping their blood sugar under control to prevent complications. Stressed the importance of avoiding barefoot walking, wearing good shoe and inspection of feet Discussed bunion. No pain. Continue with wider shoe. Patient is to RTC in 3-4 months. MELLY Montoya Matthew 10/06/2024 1:16 PM Signed Diabetes Foot Care Instructions When you have diabetes, proper foot care is very important. Poor foot care may lead to amputation of a foot or leg. As a person with diabetes, you are more vulnerable to foot problems, because diabetes can damage your nerves and reduce blood flow to your feet. Here are some diabetes foot care tips to follow: Wash and Dry Your Feet Daily Use mild soaps Use warm water Pat your skin dry; do not rub. Thoroughly dry your feet. After washing, use lotion on your feet to prevent cracking. Do not put lotion between your toes. Examine Your Feet Each Day Check the tops and bottoms of your feet. Have someone else look at your feet if you cannot see them. Check for dry, cracked skin. Look for blisters, cuts, scratches, or other sores. Check for redness, increased warmth, or tenderness when touching any area of your feet. Check for ingrown toenails, corns, and calluses. If you get a blister or sore from your shoes, do not pop it. Apply a bandage and wear a different pair of shoes. Take Care of Your Toenails Cut toenails after bathing, when they are soft. Cut toenails straight across and smooth with a nail file. Avoid cutting into the corners of toes. Do not cut cuticles. If you have neuropathy (or decreased sensation in your feet) a director data processing should always cut your toenails. Be Careful When Exercising Walk and exercise in comfortable shoes. Do not exercise when you have open sores on your feet. Protect Your Feet With Shoes and Socks Never go barefoot. Always protect your feet by wearing shoes or hard-soled slippers or footwear. Avoid shoes with high heels and pointed toes. Avoid shoes that expose your toes or heels (such as open-toed shoes or sandals). These types of shoes increase your risk for injury and potential infections. Try on new footwear with the type of socks you usually wear. Do not wear new shoes for more than an hour at a time. Change your socks daily. Look and feel inside your shoes before putting them on to make sure there are no foreign objects or rough areas. Avoid tight socks. Wear natural-fiber socks (cotton, wool, or a cotton-wool blend). Wear special shoes if your health care (more content not included)... Normal [facility] L5000.0010on 07-18-2024 Natriuretic peptide B (Bld) [Mass/Vol] 77.5 pg/mL Normal 0.0-100.0 [facility] Comment on above: Order Comment: Speci men Comment: A duplicate report has been generated due to demographic Specimen Comment: updates. Result Comment: Siem ens ADVIA Centaur XP methodology Performed at: [address] [id number] Clipper Counters: Patrick Rosales PhD, Phone: [phone] Performed By: #### L 500.2500, L501.5200, L100.0100, L501.5425, L5000.0010 #### [facility] Laboratory [address] [place], [address] Basic Metabolic Profile (BMP )on 07-11-2024 BUN/CRE 21.1 RATIO High 10-20 [facility] Comment on above: Performed By: #### L 100.0100, L500.2500 ####[facility] [address] [place], [address] CA,Total 9.2 mg/dL Normal 8.5-10.1 [facility] Comment on above: Performed By: #### L 100.0100, L500.2500 ####[facility] [address] [place], [address] Chloride [Moles/Vol] 108 mmol/L High 98-107 [facility] Comment on above: Performed By: #### L 100.0100, L500.2500 ####[facility] [address] [place], [address] CO2 [Moles/Vol] 27.0 mmol/L Normal 21.0-32.0 [facility] Comment on above: Performed By: #### L 100.0100, L500.2500 ####[facility] [address] [place], [address] Creatinine [Mass/Vol] 1.09 mg/dL Normal 0.70-1.30 [facility] Comment on above: Result Comment: The validity of the calculated GFR GFRAA in patients over 70 years has not been determined. Clinical correlation is essential. Performed By: #### L 100.0100, L500.2500 ####[facility] [address] [place], [address] ECRCL 70.85 ml/min Normal [facility] Comment on above: Performed By: #### L 100.0100, L500.2500 ####[facility] [address] [place], [address] EST GFR - AA 86 mL/min Normal >60 [facility] Comment on above: Result Comment: Afri can Gambian GFR Calc Performed By: #### L 100.0100, L500.2500 ####[facility] [address] [place], [address] GAP 4 Low 5-15 [facility] Comment on above: Performed By: #### L 100.0100, L500.2500 ####[facility] [address] [place], [address] GFR/1.73 sq M.predicted among non-blacks MDRD (S/P/Bld) [Vol rate/Area] 71 mL/min/{1.73_m2} Normal >60 [facility] Comment on above: Result Comment: Non- GFR Calc Performed By: #### L 100.0100, L500.2500 ####[facility] [address] [place], [address] Glucose [Mass/Vol] 123 mg/dL High 74-106 [facility] Comment on above: Result Comment: Fast ing Glucose result from 100 to 125 mg/dL suggests IMPAIRED HOMEOSTASIS per A.D.A. criteria. Performed By: #### L 100.0100, L500.2500 ####[facility] [address] [place], [address] Potassium [Moles/Vol] 4.2 mmol/L Normal 3.5-5.1 [facility] Comment on above: Performed By: #### L 100.0100, L500.2500 ####[facility] [address] [place], [address] Sodium [Moles/Vol] 140 mmol/L Normal 136-145 [facility] Comment on above: Performed By: #### L 100.0100, L500.2500 ####[facility] [address] [place], [address] Urea nitrogen [Mass/Vol] 23 mg/dL High 7-18 [facility] Comment on above: Performed By: #### L 100.0100, L500.2500 ####[facility] [address] [place], [address] BUN/CRE 17.9 RATIO Normal 10-20 [facility] Comment on above: Order Comment: 1 Y Performed By: #### L 500.2500, L501.5200, L100.0100, L501.5425, L5000.0010 #### [facility] [address] [place], [address] CA,Total 9.0 mg/dL Normal 8.5-10.1 [facility] Comment on above: Order Comment: 1 Y Performed By: #### L 500.2500, L501.5200, L100.0100, L501.5425, L5000.0010 #### [facility] [address] [place], [address] Chloride [Moles/Vol] 107 mmol/L Normal 98-107 [facility] Comment on above: Order Comment: 1 Y Performed By: #### L 500.2500, L501.5200, L100.0100, L501.5425, L5000.0010 #### [facility] [address] [place], [address] CO2 [Moles/Vol] 27.0 mmol/L Normal 21.0-32.0 [facility] Comment on above: Order Comment: 1 Y Performed By: #### L 500.2500, L501.5200, L100.0100, L501.5425, L5000.0010 #### [facility] [address] [place], [address] Creatinine [Mass/Vol] 1.23 mg/dL Normal 0.70-1.30 [facility] Comment on above: Order Comment: 1 Y Result Comment: The validity of the calculated GFR GFRAA in patients over 70 years has not been determined. Clinical correlation is essential. Performed By: #### L 500.2500, L501.5200, L100.0100, L501.5425, L5000.0010 #### [facility] [address] [place], [address] ECRCL 63.59 ml/min Normal [facility] Comment on above: Order Comment: 1 Y Performed By: #### L 500.2500, L501.5200, L100.0100, L501.5425, L5000.0010 #### [facility] [address] [place], [address] EST GFR - AA 75 mL/min Normal >60 [facility] Comment on above: Order Comment: 1 Y Result Comment: Afri can Gambian GFR Calc Performed By: #### L 500.2500, L501.5200, L100.0100, L501.5425, L5000.0010 #### [facility] [address] [place], [address] GAP 6 Normal 5-15 [facility] Comment on above: Order Comment: 1 Y Performed By: #### L 500.2500, L501.5200, L100.0100, L501.5425, L5000.0010 #### [facility] [address] [place], [address] GFR/1.73 sq M.predicted among non-blacks MDRD (S/P/Bld) [Vol rate/Area] 62 mL/min/{1.73_m2} Normal >60 [facility] Comment on above: Order Comment: 1 Y Result Comment: Non- GFR Calc Performed By: #### L 500.2500, L501.5200, L100.0100, L501.5425, L5000.0010 #### [facility] [address] [place], [address] Glucose [Mass/Vol] 166 mg/dL High 74-106 [facility] Comment on above: Order Comment: 1 Y Result Comment: Fast ing Glucose result greater than or equal to 126 mg/dL suggests DIABETES MELLITUS per A.D.A. criteria. Performed By: #### L 500.2500, L501.5200, L100.0100, L501.5425, L5000.0010 #### [facility] [address] [place], [address] Potassium [Moles/Vol] 4.1 mmol/L Normal 3.5-5.1 [facility] Comment on above: Order Comment: 1 Y Performed By: #### L 500.2500, L501.5200, L100.0100, L501.5425, L5000.0010 #### [facility] [address] [place], [address] Sodium [Moles/Vol] 140 mmol/L Normal 136-145 [facility] Comment on above: Order Comment: 1 Y Performed By: #### L 500.2500, L501.5200, L100.0100, L501.5425, L5000.0010 #### [facility] [address] [place], [address] Urea nitrogen [Mass/Vol] 22 mg/dL High 7-18 [facility] Comment on above: Order Comment: 1 Y Performed By: #### L 500.2500, L501.5200, L100.0100, L501.5425, L5000.0010 #### [facility] [address] [place], [address] Bedside Glucoseon 07-11-2024 FINGERSTICK GLU 169 mg/dL High 74-106 [facility] Comment on above: Result Comment: SHAHRAM WILKERSON OF PATIENT CARE PER NURSING PROTOCOL Performed By: #### L 501.080 ####[facility] [address] [place], [address] CBC W/Diff, Automatedon 06-27 Absolute Lymph 2.14 X10 3/uL Normal 0.83-4.51 [facility] Comment on above: Performed By: #### L 100.0100, L500.2500 #### [facility] [address] [place], [address] Absolute Neut 4.1 X10 3/uL Normal 2.0-7.7 [facility] Comment on above: Performed By: #### L 100.0100, L500.2500 #### [facility] [address] [place], [address] Basophils/100 WBC (Bld) 0.7 % Normal 0-1 [facility] Comment on above: Performed By: #### L 100.0100, L500.2500 #### [facility] [address] [place], [address] Eosinophils/100 WBC (Bld) 3.8 % Normal 0-5 [facility] Comment on above: Performed By: #### L 100.0100, L500.2500 #### [facility] [address] [place], [address] Erythrocyte distribution width (RBC) [Ratio] 13.4 % Normal 11.6-14.6 [facility] Comment on above: Performed By: #### L 100.0100, L500.2500 #### [facility] [address] [place], [address] Hematocrit (Bld) [Volume fraction] 42.1 % Normal 40-54 [facility] Comment on above: Performed By: #### L 100.0100, L500.2500 #### [facility] [address] [place], [address] Hemoglobin (Bld) [Mass/Vol] 13.7 g/dL Normal 13.0-16.5 [facility] Comment on above: Performed By: #### L 100.0100, L500.2500 #### [facility] [address] [place], [address] IG% 0.500 Normal 0.0-0.9 [facility] Comment on above: Result Comment: IG% - Immature Granulocytes (promyelocytes, myelocytes and metamyelocytes) > 1% indicates that a LEFT SHIFT is Present. Performed By: #### L 100.0100, L500.2500 #### [facility] [address] [place], [address] Lymphocytes/100 WBC (Bld) 29.0 % Normal 19-41 [facility] Comment on above: Performed By: #### L 100.0100, L500.2500 #### [facility] [address] [place], [address] MCH (RBC) [Entitic mass] 32.1 pg High 27.0-32.0 [facility] Comment on above: Performed By: #### L 100.0100, L500.2500 #### [facility] [address] [place], [address] MCHC (RBC) [Mass/Vol] 32.5 g/dL Normal 32-36 [facility] Comment on above: Performed By: #### L 100.0100, L500.2500 #### [facility] [address] [place], [address] MCV (RBC) [Entitic vol] 98.6 fL High 80-94 [facility] Comment on above: Performed By: #### L 100.0100, L500.2500 #### [facility] [address] [place], [address] Monocytes/100 WBC (Bld) 10.0 % Normal 0-10 [facility] Comment on above: Performed By: #### L 100.0100, L500.2500 #### [facility] [address] [place], [address] Neutrophils/100 WBC (Bld) 56.0 % Normal 47-70 [facility] Comment on above: Performed By: #### L 100.0100, L500.2500 #### [facility] [address] [place], [address] Nucleated RBC (Bld) [#/Vol] 0 10*3/uL Normal 0-5 [facility] Comment on above: Performed By: #### L 100.0100, L500.2500 #### [facility] [address] [place], [address] Platelet mean volume (Bld) [Entitic vol] 10.4 fL Normal 6.2-12.0 [facility] Comment on above: Performed By: #### L 100.0100, L500.2500 #### [facility] [address] [place], [address] Platelets (Bld) [#/Vol] 279 10*3/uL Normal 150-450 [facility] Comment on above: Performed By: #### L 100.0100, L500.2500 #### [facility] [address] [place], [address] RBC (Bld) [#/Vol] 4.27 10*6/uL Low 4.6-6.2 [facility] Comment on above: Performed By: #### L 100.0100, L500.2500 #### [facility] [address] [place], [address] RDW SD 47.9 fl High 35.1-43.9 [facility] Comment on above: Performed By: #### L 100.0100, L500.2500 #### [facility] [address] [place], [address] WBC (Bld) [#/Vol] 7.4 10*3/uL Normal 4.4-11.0 [facility] Comment on above: Performed By: #### L 100.0100, L500.2500 #### [facility] [address] [facility] [place], [address] Absolute Lymph 1.75 X10 3/uL Normal 0.83-4.51 [facility] Comment on above: Performed By: #### L 500.2500, L501.5200, L100.0100, L501.5425, L5000.0010 #### [facility] [address] [facility] [place], [address] Absolute Neut 5.0 X10 3/uL Normal 2.0-7.7 [facility] Comment on above: Performed By: #### L 500.2500, L501.5200, L100.0100, L501.5425, L5000.0010 #### [facility] [address] [place], [address] Basophils/100 WBC (Bld) 0.5 % Normal 0-1 [facility] Comment on above: Performed By: #### L 500.2500, L501.5200, L100.0100, L501.5425, L5000.0010 #### [facility] [address] [place], [address] Eosinophils/100 WBC (Bld) 2.9 % Normal 0-5 [facility] Comment on above: Performed By: #### L 500.2500, L501.5200, L100.0100, L501.5425, L5000.0010 #### [facility] [address] [place], [address] Erythrocyte distribution width (RBC) [Ratio] 13.3 % Normal 11.6-14.6 [facility] Comment on above: Performed By: #### L 500.2500, L501.5200, L100.0100, L501.5425, L5000.0010 #### [facility] [address] [place], [address] Hematocrit (Bld) [Volume fraction] 44.0 % Normal 40-54 [facility] Comment on above: Performed By: #### L 500.2500, L501.5200, L100.0100, L501.5425, L5000.0010 #### [facility] [address] [facility] [place], [address] Hemoglobin (Bld) [Mass/Vol] 14.2 g/dL Normal 13.0-16.5 [facility] Comment on above: Performed By: #### L 500.2500, L501.5200, L100.0100, L501.5425, L5000.0010 #### [facility] [address] [facility] [place], [address] IG% 0.500 Normal 0.0-0.9 [facility] Comment on above: Result Comment: IG% - Immature Granulocytes (promyelocytes, myelocytes and metamyelocytes) > 1% indicates that a LEFT SHIFT is Present. Performed By: #### L 500.2500, L501.5200, L100.0100, L501.5425, L5000.0010 #### [facility] [address] [facility] [place], [address] Lymphocytes/100 WBC (Bld) 22.3 % Normal 19-41 [facility] Comment on above: Performed By: #### L 500.2500, L501.5200, L100.0100, L501.5425, L5000.0010 #### [facility] [address] [place], [address] MCH (RBC) [Entitic mass] 31.8 pg Normal 27.0-32.0 [facility] Comment on above: Performed By: #### L 500.2500, L501.5200, L100.0100, L501.5425, L5000.0010 #### [facility] [address] [place], [address] MCHC (RBC) [Mass/Vol] 32.3 g/dL Normal 32-36 [facility] Comment on above: Performed By: #### L 500.2500, L501.5200, L100.0100, L501.5425, L5000.0010 #### [facility] [address] [place], [address] MCV (RBC) [Entitic vol] 98.4 fL High 80-94 [facility] Comment on above: Performed By: #### L 500.2500, L501.5200, L100.0100, L501.5425, L5000.0010 #### [facility] [address] [place], [address] Monocytes/100 WBC (Bld) 9.6 % Normal 0-10 [facility] Comment on above: Performed By: #### L 500.2500, L501.5200, L100.0100, L501.5425, L5000.0010 #### [facility] [address] [place], [address] Neutrophils/100 WBC (Bld) 64.2 % Normal 47-70 [facility] Comment on above: Performed By: #### L 500.2500, L501.5200, L100.0100, L501.5425, L5000.0010 #### [facility] [address] [place], [address] Nucleated RBC (Bld) [#/Vol] 0 10*3/uL Normal 0-5 [facility] Comment on above: Performed By: #### L 500.2500, L501.5200, L100.0100, L501.5425, L5000.0010 #### [facility] [address] [place], [address] Platelet mean volume (Bld) [Entitic vol] 10.3 fL Normal 6.2-12.0 [facility] Comment on above: Performed By: #### L 500.2500, L501.5200, L100.0100, L501.5425, L5000.0010 #### [facility] [address] [place], [address] Platelets (Bld) [#/Vol] 292 10*3/uL Normal 150-450 [facility] Comment on above: Performed By: #### L 500.2500, L501.5200, L100.0100, L501.5425, L5000.0010 #### [facility] [address] [place], [address] RBC (Bld) [#/Vol] 4.47 10*6/uL Low 4.6-6.2 [facility] Comment on above: Performed By: #### L 500.2500, L501.5200, L100.0100, L501.5425, L5000.0010 #### [facility] [address] [place], [address] RDW SD 48.2 fl High 35.1-43.9 [facility] Comment on above: Performed By: #### L 500.2500, L501.5200, L100.0100, L501.5425, L5000.0010 #### [facility] [address] [place], [address] WBC (Bld) [#/Vol] 7.8 10*3/uL Normal 4.4-11.0 [facility] Comment on above: Performed By: #### L 500.2500, L501.5200, L100.0100, L501.5425, L5000.0010 #### [facility] [address] [place], [address] Chest 1 View (Portable)on Chest 1 View (Portable) [facility] Imaging Services [address] [place] [address] Chest 1 View (Portable) MR#: [id number] Acct: [id number] Name: XAVI CABELLO Rep #: [id number] : 1955 M 69 From: Rudolph Ambrosio MD PCP: Dr. Grant Krause MD Status: REG ER Study: Chest 1 View (Portable) Date of Exam: 07/11/24 Exam# [id number] Ordering Dr: [place] [id number] EXAM: XR Chest 1 View INDICATION: Male, 69 years old. Chest pain TECHNIQUE: Single AP view COMPARISON: None FINDINGS: DEVICES: None LUNGS: No confluent air space opacity. Mild coarsened prominence of the interstitial lung markings noted at bilateral lung bases, likely representing scar formation. No concerning pulmonary nodule. No pleural effusion or pneumothorax. MEDIASTINUM: Borderline cardiomegaly. Mediastinal silhouette is within normal limits. No central pulmonary vascular congestion. . SKELETAL STRUCTURES: No acute skeletal abnormality. Multilevel degenerative changes spine UPPER ABDOMEN: Unremarkable RAD/Chest 1 View (Portable) IMPRESSION: Likely bibasilar linear scar formation with no acute cardiopulmonary disease Electronically Signed: Rudolph Ambrosio MD at 1:44 EDT , CC: Dr. Jere Fabian DO; Dr. Grant Krause MD Care Companion: Signed Normal [facility] Discharge Instructionon 06-[address] [facility] Medical Records Department [address] [place] [address] Instructions for Home/Discharge Instructions 07/11/24 1405 MR#: [id number] Acct: [id number] Name: XAVI CABELLO Rep #: [id number] : 1955 69 From: Quyen Broussard MD PCP: Dr. Grant Krause MD Status:ADM NHUNG Discharge Instructions Diet Discharge Diet: Low fat / Low cholesterol Activity Discharge Activity: Return to Normal Activity Weight Bearing Status: Weight bearing as tolerated Dressing / Incision Call your doctor if you observe: Fever of 101 or Higher, Shortness of breath, Dizziness, Swelling in the ankles and Chest pain Follow Up Care Test Results: Test results from this visit will be discussed in further detail at your follow-up appointment, if applicable. Discharge Plan Admission Admit Date/Time: 07/11/24 03:57 Primary Reason for Your Visit: chest pain Attending Provider: Quyen Broussard Primary Care Provider: Grant Krause Consulting Providers: Chirag Cristina Instructions Patient Instructions: ED Chest Pain, Noncardiac Discharge Orders/Prescriptions Prescriptions: Continued lisinopril 10 mg tablet 10 mg PO DAILY albuterol sulfate [ProAir HFA] 90 mcg/actuation HFA aerosol inhaler 2 puff INHALATION Q6H PRN (Reason: Shortness Of Breath Or Wheezing) rosuvastatin 40 mg tablet 40 mg PO DAILY Jardiance 25 mg tablet 25 mg PO DAILY glipizide 2.5 mg tablet extended release 24hr 2.5 mg PO DAILY Patient Comments: Take 1 tablet by mouth once daily. gabapentin 100 mg capsule 100 mg PO BID furosemide 20 mg tablet 20 mg PO DAILY Qty: 90 3RF potassium chloride 10 mEq tablet extended release 10 meq PO DAILY Qty: 90 3RF sildenafil [Viagra] 50 mg tablet 50 mg PO QDAY PRN (Reason: sexual activity) Rx Instructions: administer 30 minutes to 4 hours before activity aspirin 81 MG tablet,chewable 81 mg PO DAILY@0800 Patient Comments: antiplatelet nitroglycerin 0.4 MG tablet 0.4 mg SUBLINGUAL Q5M PRN (Reason: Chest Pain) Qty: 25 0RF Patient Comments: CHEST PAIN tamsulosin 0.4 MG capsule 0.4 mg PO DAILY fenofibrate 160 MG tablet 160 mg PO DAILY metoprolol tartrate 25 mg tablet 25 mg PO BID metformin 500 mg tablet 1,000 mg PO BID ranolazine [Ranexa] 1,000 mg tablet extended release 12 hr 1,000 mg PO BID Qty: 180 4RF Referrals / Follow Up: Grant Krause MD [Primary Care Provider] - Within 1 Week Disposition Disposition (needs filled in before D/C Order can be placed): Home, Self Care 07/11/24 1405 Quyen Broussard MD CC: Dr. Chirag Cristina MD; Dr. Grant Krause MD Signed Normal [facility] Emergency Department Summary on 07-11-2024 Emergency Department Summary [facility] Medical Records Department [address] [place] [address] Emergency Department Summary 07/11/24 MR#: [id number] Acct: [id number] Name: XAVI CABELLO Rep #: [id number] : 1955 69 From: Jere Fabian DO PCP: Dr. Grant Krause MD Status:REG ER Location: ED HPI History of Present Illness Chief Complaint: Upper Extremity Injury Narrative Narrative: Chief complaint and HPI: Left upper extremity pain radiating to the chest. 69-year-old male with history of ACS status post stents, DM, HTN, HLD, CVA, presents for evaluation of left upper extrem ity pain that is radiating into his left chest. Patient states that this feels similar to his previous [place]. Patient states he woke up with left arm pain. He did state that he slept on his left arm last night. He states that the pain radiates into his chest. He states that the pain has not improved and is slightly worsening therefore he presented today. He did take his baby aspirin this morning. He denies any fever, chills, dizziness, lightheadedness, nausea, vomiting, shortness of breath, abdominal pain, numbness/tingling, weakness. Review of systems: See HPI Medications: As listed on the chart Allergies: As listed on the chart PFSH: Per chart Vital signs: As listed on the chart. Reviewed. 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 Chest pain COVID-19 virus infection Essential hypertension Hyperlipidemia Hypertension Leg edema, left ALBAN on CPAP Presence of stent in coronary artery ( 04/05/12) Pure hypercholesterolemia Tinnitus Type II diabetes mellitus Home Medications ???Medication ???Instructions ???Recorded ???Last Taken ???Type aspirin 81 mg chewable tablet 81 mg PO DAILY@0800 07/20/15 05/26/22 History nitroglycerin 0.4 mg sublingual 0.4 mg sublingual Q5M PRN Chest 07/23/15 01/03/19 Rx tablet Pain #25 tabs tamsulosin 0.4 mg capsule 0.4 mg PO DAILY 09/08/16 01/03/19 History fenofibrate 160 mg tablet 160 mg PO DAILY 09/10/16 01/03/19 History albuterol sulfate 90 mcg/actuation 2 puff inhalation Q6H PRN 10/30/20 Unknown History aerosol inhaler (ProAir HFA) Shortness Of Breath Or Wheezing lisinopril 10 mg tablet 10 mg PO DAILY 10/30/20 05/26/22 History metoprolol tartrate 25 mg tablet 25 mg PO BID 05/08/21 05/26/22 History empagliflozin 25 mg tablet 25 mg PO DAILY 12/04/21 Unknown History (Jardiance) metformin 500 mg tablet 1,000 mg PO BID 12/04/21 05/25/22 History rosuvastatin 40 mg tablet 40 mg PO DAILY 12/04/21 Unknown History glipizide 2.5 mg tablet, extended 2.5 mg PO DAILY 05/14/23 Unknown History release 24 hr ranolazine 1,000 mg 1,000 mg PO BID #180 tabs 07/09/23 Unknown Rx tablet,extended release,12 hr (Ranexa) furosemide 20 mg tablet 20 mg PO DAILY #90 tabs 12/06/23 Unknown Rx gabapentin 100 mg capsule 100 mg PO BID 12/06/23 Unknown History potassium chloride 10 mEq 10 meq PO DAILY #90 tabs 12/06/23 Unknown Rx tablet,extended release sildenafil 50 mg tablet (Viagra) 50 mg PO QDAY PRN sexual activity 06/06/24 Unknown History Allergy/AdvReac Type Severity Reaction Status Date / Time No Known Allergies Allergy Verified 07/11/24 00:20 Family History Sister Hypertension Surgical History History of left heart catheterization (LHC) ( 05/26/22) History of umbilical hernia repair Presence of coronary angioplasty implant and graft ( 04/05/12) Social History (Updated 06/06/24 @ 13:53 by Suresh Beltran RN) Smoking Status: Never smoker alcohol intake: former substance use type: former substance user Date of last use: stopped marijuana caffeine: Yes EXAM Physical Exam Const Vital Signs: 07/11/24 00:20 Temperature 97.8 F Temperature Source Oral Pulse Rate 83 Respiratory Rate 16 Blood Pressure 148/82 H Blood Pressure Mean 104 Pulse Ox 98 Oxygen Delivery Method Room Air MDM MDM MDM Narrative Medical decision making narrative: 69-year-old male with significant cardiac history presents for evaluatio (more content not included)... Normal [facility] L501.4020on 07-11-2024 TROPONIN-I HS 8 pg/mL Normal 3.0-78.0 [facility] Comment on above: Order Comment: 'TROP ' Serial specimen #1, #2 or #3: 3 Result Comment: Arabella banks Note: New Test Units and Gender Specific Reference Ranges. For more information see Policy Stat Procedure [place] High Sensitivity Troponin (TNIH) and attachments. Performed By: #### L 501.4020 #### [facility] Laboratory [address] [place], [address] TROPONIN-I HS 5 pg/mL Normal 3.0-78.0 [facility] Comment on above: Result Comment: Plea se Note: New Test Units and Gender Specific Reference Ranges. For more information see Policy Stat Procedure [place] High Sensitivity Troponin (TNIH) and attachments. Performed By: #### L 501.4020 #### [facility] [address] [place], [address] L501.5425on 07-11-2024 TROPONIN-I HS 4 pg/mL Normal 3.0-78.0 [facility] Comment on above: Order Comment: 1 Y Result Comment: Plea se Note: New Test Units and Gender Specific Reference Ranges. For more information see Policy Stat Procedure [place] High Sensitivity Troponin (TNIH) and attachments. Performed By: #### L 500.2500, L501.5200, L100.0100, L501.5425, L5000.0010 #### [facility] [address] [place], [address] Magnesiumon 07-11-2024 Magnesium [Mass/Vol] 1.9 mg/dL Normal 1.6-2.6 [facility] Comment on above: Order Comment: 1 Y Performed By: #### L 500.2500, L501.5200, L100.0100, L501.5425, L5000.0010 #### [facility] [address] [place], [address] Stress Reporton 07-11-2024 Stress Report [facility] [address] [place] [address] MR#: [id number] Acct: [id number] Name: XAVI CABELLO Rep #: [id number] : 1955 69 From: Mo [place] MD Primary Care: Dr. Grant Krause MD Status: ADM NHUNG Referring Dr: Sex: M C Stress Test Report Exercise myocardial perfusion stress test. 69-year-old male with a history of chest pain Stress protocol: Resting EKG demonstrates normal sinus rhythm with a rate of 55 bpm resting blood pressure is 150/92 mmHg. The patient exercised according to the regular Vinicio protocol for a total duration of 3 minutes attaining a maximum heart rate of 144 bpm which was 100% of maximum predicted heart rate; the maximum workload was 4.6 metabolic equivalents. At rest there were no ST or T wave changes noted to suggest ischemia and at peak exercise upsloping ST changes only were noted which did not meet the criteria for ischemia. No clinical angina was noted the test was terminated due to the target heart rate being achieved/fatigue. The peak blood pressure was 204/92 mmHg. Myocardial perfusion protocol. 14.8 mCi of technetium 99m sestamibi was injected at rest. The patient exercised according to regular Vinicio protocol for total duration of 3 minutes and at peak exercise 45 mCi of technetium 99m sestamibi was injected stress images were obtained stress and rest images were reconstructed in comparing the short axis vertical long and horizontal long axis. Gated images were also obtained. Perfusion SPECT analysis: Review of the stress images demonstrate normal uptake of tracer noted in all areas of the myocardium. The resting images similarly demonstrate normal uptake of tracer noted in all areas of the myocardium. No areas of reversibility are noted to suggest ischemia no previous infarct was noted. Gated SPECT analysis: The gated ejection fraction is 77%. Conclusion: Normal exercise myocardial perfusion stress test at a low workload Preserved ejection fraction. 07/11/241131 Date Mo [place] MD CC: Dr. Jere Fabian DO; Dr. Quyen Broussard MD; Dr. Chirag Cristina MD; Dr. Grant Krause MD Date Dictated: 07/11/241130 Date Transcribed: 07/11/241130 Care Companion: CO Signed Normal [facility] Cardiology Visit Reporton Cardiology Visit Report [facility] [address] [place] [address]. [address] [place] [address] OFFICE VISIT Date of Service: 06/06/24 MR#: [id number] Acct: [id number] Name: XAVI CABELLO Rep #: [id number] : 1955 Provider: Dr. Calderon Cordova MD Age/Sex: 69/M Location: [facility] Status: Signed [facility] History of Present Illness Details: Denies any complaints today. No chest pains. No shortness of breath. No palpitations. No orthopnea. No PND. His ankle edema is better since starting on furosemide. Patient has stopped smoking marijuana. Intake Vital Signs 12/06/23 14:44 06/06/24 08:51 Height 5 ft 7 in 5 ft 7 in Weight: 220 lb BMI 34.4 BP 110/73 Blood Pressure Location Lt brachial Position Sitting Respiration 20 H Pulse 84 Pulse Source NIBP Intake Visit Reasons: 6 M FU Co Founder And Director Required: No Accompanied by: Self Is patient in pain?: No Allergies No Known Allergies Allergy (Verified 06/06/24 13:36) Medications ???Medication ???Instructions ???Recorded ???Confirmed ???Type aspirin 81 mg chewable tablet 81 mg PO DAILY@0800 07/20/06/06/24 History nitroglycerin 0.4 mg sublingual 0.4 mg sublingual Q5M PRN Chest 07/23/15 06/06/24 Rx tablet Pain #25 tabs tamsulosin 0.4 mg capsule 0.4 mg PO DAILY 09/08/16 06/06/24 History fenofibrate 160 mg tablet 160 mg PO DAILY 09/10/16 06/06/24 History albuterol sulfate 90 mcg/actuation 2 puff inhalation Q6H PRN 10/30/20 06/06/24 History aerosol inhaler (ProAir HFA) Shortness Of Breath Or Wheezing lisinopril 10 mg tablet 10 mg PO DAILY 10/30/20 06/06/24 History metoprolol tartrate 25 mg tablet 25 mg PO BID 05/08/21 06/06/24 History empagliflozin 25 mg tablet 25 mg PO DAILY 12/04/21 06/06/24 History (Jardiance) metformin 500 mg tablet 1,000 mg PO BID 12/04/21 06/06/24 History rosuvastatin 40 mg tablet 40 mg PO DAILY 12/04/21 06/06/24 History glipizide 2.5 mg tablet, extended 2.5 mg PO DAILY 05/14/23 06/06/24 History release 24 hr ranolazine 1,000 mg 1,000 mg PO BID #180 tabs 07/09/23 06/06/24 Rx tablet,extended release,12 hr (Ranexa) furosemide 20 mg tablet 20 mg PO DAILY #90 tabs 12/06/23 06/06/24 Rx gabapentin 100 mg capsule 100 mg PO BID 12/06/23 06/06/24 History potassium chloride 10 mEq 10 meq PO DAILY #90 tabs 12/06/23 06/06/24 Rx tablet,extended release sildenafil 50 mg tablet (Viagra) 50 mg PO QDAY PRN 06/06/24 06/06/24 History Ejection fraction %: 65 Have you fallen in the past year?: Yes (S/P Fall wednesday. Right leg gave out. 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 Chest pain COVID-19 virus infection Essential hypertension Hyperlipidemia Hypertension Leg edema, left ALBAN on CPAP Presence of stent in coronary artery ( 04/05/12) Pure hypercholesterolemia Tinnitus Type II diabetes mellitus Surgical History History of left heart catheterization (LHC) ( 05/26/22) History of umbilical hernia repair Presence of coronary angioplasty implant and graft ( 04/05/12) Family History Sister Hypertension Social History (Updated 06/06/24 @ 13:53 by Suresh Beltran RN) Smoking Status: Never smoker alcohol intake: former substance use type: former substance user Date of last use: stopped marijuana caffeine: Yes ROS Const Const: Negative for fatigue, weakness or headache(s) ENT ENT: Negative for headache(s), dizziness, Nosebleed/epistaxis or balance problems Cardio Chest Pain: No Palpitations: Yes feels like its: fast (pt reports anxiety related) Edema: Bilateral (left worse than right, +3 pitting LLE) Muscle aches with walking: None Resp Respiratory: Positive for SOB with activity (audibly observed by RN) and SOB at rest; Negative for SOB orthopnea SOB lying down GI GI: Positive for heartburn (diet induced); Negative nausea or vomiting Musc Musc: Positive for joint pain (Left knee); Negative for muscle aches/ myalgia, muscle weakness or balance problems Neuro Neuro: Negative for dizziness, lightheadedness, near syncope, syncope, headache(s) or weakness Endo Endo: Negative for fatigue Cardiology Exam Const Appearance: comfortable and no acute distress Nutritional Appearance: obese Neck Neck: no JVD Carotids: Negative bruit Chest Auscultation: Bilateral: Clear to Auscultation Cardio Rate: regular rate Rhythm: regular rhythm Heart sounds: S1 normal and S2 normal GI GI: obese Neuro General: patient alert, patient awake and patient oriented x3 Extremities Lower Extremity Edema: +2: Bilateral Supplemental Info Supplemental Informat (more content not included)... Normal [facility] Comprehensive Metabolic Prof ilon 06-06-2024 Albumin [Mass/Vol] 3.5 g/dL Normal 3.2-5.0 [facility] Comment on above: Performed By: #### L 500.4100, L500.4050 ####[facility] [address] [place], [address] Albumin/Globulin [Mass ratio] 1.0 {ratio} Normal 0.9-2.4 [facility] Comment on above: Performed By: #### L 500.4100, L500.4050 ####[facility] [address] [place], [address] ALK P 35 U/L Low 45-117 [facility] Comment on above: Performed By: #### L 500.4100, L500.4050 ####[facility] [address] [place], [address] ALT [Catalytic activity/Vol] 23 U/L Normal 16-61 [facility] Comment on above: Performed By: #### L 500.4100, L500.4050 ####[facility] [address] [place], [address] AST [Catalytic activity/Vol] 19 U/L Normal 15-37 [facility] Comment on above: Performed By: #### L 500.4100, L500.4050 ####[facility] [address] [place], [address] Bilirubin [Mass/Vol] 0.40 mg/dL Normal 0.20-1.00 [facility] Comment on above: Result Comment: For patients on eltrombopag therapy, use of Dimension [place] TBIL is not recommended. Performed By: #### L 500.4100, L500.4050 ####[facility] [address] [place], [address] BUN/CRE 19.0 RATIO Normal 10-20 [facility] Comment on above: Performed By: #### L 500.4100, L500.4050 ####[facility] [address] [place], [address] CA,Total 9.5 mg/dL Normal 8.5-10.1 [facility] Comment on above: Performed By: #### L 500.4100, L500.4050 ####[facility] [address] [place], [address] Chloride [Moles/Vol] 105 mmol/L Normal 98-107 [facility] Comment on above: Performed By: #### L 500.4100, L500.4050 ####[facility] [address] [place], [address] CO2 [Moles/Vol] 26.0 mmol/L Normal 21.0-32.0 [facility] Comment on above: Performed By: #### L 500.4100, L500.4050 ####[facility] [address] [place], [address] Creatinine [Mass/Vol] 1.53 mg/dL High 0.70-1.30 [facility] Comment on above: Result Comment: The validity of the calculated GFR GFRAA in patients over 70 years has not been determined. Clinical correlation is essential. Performed By: #### L 500.4100, L500.4050 ####[facility] [address] [place], [address] EST GFR - AA 58 mL/min Low >60 [facility] Comment on above: Result Comment: Afri can Gambian GFR Calc Performed By: #### L 500.4100, L500.4050 ####[facility] [address] [place], [address] GAP 7 Normal 5-15 [facility] Comment on above: Performed By: #### L 500.4100, L500.4050 ####[facility] [address] [place], [address] GFR/1.73 sq M.predicted among non-blacks MDRD (S/P/Bld) [Vol rate/Area] 48 mL/min/{1.73_m2} Low >60 [facility] Comment on above: Result Comment: Non- GFR Calc Performed By: #### L 500.4100, L500.4050 ####[facility] [address] [place], [address] Globulin (S) [Mass/Vol] 3.5 g/dL Normal 2.2-4.2 [facility] Comment on above: Performed By: #### L 500.4100, L500.4050 ####[facility] [address] [place], [address] Glucose [Mass/Vol] 196 mg/dL High 74-106 [facility] Comment on above: Result Comment: Fast ing Glucose result greater than or equal to 126 mg/dL suggests DIABETES MELLITUS per A.D.A. criteria. Performed By: #### L 500.4100, L500.4050 ####[facility] [address] [place], [address] Potassium [Moles/Vol] 4.5 mmol/L Normal 3.5-5.1 [facility] Comment on above: Performed By: #### L 500.4100, L500.4050 ####[facility] [address] [place], [address] Sodium [Moles/Vol] 138 mmol/L Normal 136-145 [facility] Comment on above: Performed By: #### L 500.4100, L500.4050 ####[facility] [address] [place], [address] T PROT 7.0 g/dL Normal 6.4-8.2 [facility] Comment on above: Performed By: #### L 500.4100, L500.4050 ####[facility] [address] [place], [address] Urea nitrogen [Mass/Vol] 29 mg/dL High 7-18 [facility] Comment on above: Performed By: #### L 500.4100, L500.4050 ####[facility] [address] [place], [address] Lipid Profileon 06-06-2024 Cholesterol [Mass/Vol] 150 mg/dL Normal 200 [facility] Comment on above: Result Comment: <200 mg/dL Desirable 200-240 mg/dL Borderline >240 mg/dL High Risk Performed By: #### L 500.4100, L500.4050 ####[facility] [address] [place], [address] Cholesterol in HDL [Mass/Vol] 59 mg/dL Normal [facility] Comment on above: Result Comment: The drugs N-Acetylcysteine and Metamizole may falsely depress this assay. Reference Range HDL <40 mg/dL Low HDL Cholesterol HDL >or= 60 mg/dL High HDL Cholesterol Performed By: #### L 500.4100, L500.4050 ####[facility] [address] [place], [address] Cholesterol in LDL [Mass/Vol] 72 mg/dL Normal 0-130 [facility] Comment on above: Performed By: #### L 500.4100, L500.4050 ####[facility] [address] [place], [address] Cholesterol in VLDL [Mass/Vol] 19 mg/dL Normal 5-40 [facility] Comment on above: Performed By: #### L 500.4100, L500.4050 ####[facility] [address] [place], [address] Triglyceride [Mass/Vol] 95 mg/dL Normal [facility] Comment on above: Result Comment: The drugs N-Acetylcysteine and Metamizole may falsely depress this assay. Serum Triglycerides Reference Interval Normal <150 mg/dL Borderline high 150 - 199 mg/dL High 200 - 499 mg/dL Very High > or = 500 mg/dL Performed By: #### L 500.4100, L500.4050 ####[facility] [address] [place], [address] Large Joint Arthro/Inj: L kn ee jointon 06-05-2024 Nilda Kim PA -C 06/05/2024 2:34 PM Large Joint Arthro/Inj: L knee joint Informed Consent Consent Obtained: Verbal [place] Protocol A moment to CARE was completed. SIGN IN Sign in communication not applicable due to emergent procedure. Personnel directly involved with the procedure wore the appropriate PPE. Special Equipment: N/A Patient/Surrogate Stated/Verified: Patient name, Date of , Relevant allergies and Intended procedure TIME OUT Intended patient and procedure match the source document(s). Relevant labs, photos, and/or imaging studies have been reviewed. Correct side/site marked and visible. Medications required for procedure verified. No fire risk assessment and interventions applicable. No implant(s) inserted. 06/05/2024 2:33 PM The procedure site was prepped in the usual sterile fashion. Site: L knee joint Medications: 6 mg betamethasone acetate-betamethasone sodium phosphate 6 mg/mL Anesthetics: 4 mL lidocaine (PF) 10 mg/mL (1 %) Outcome: Tolerated well, no immediate complications Post-injection instructions were reviewed with the patient and the patient voiced understanding of these instructions. SIGN OUT No specimen collected. All instruments, equipment, possible retained foreign bodies accounted for. Post-procedure follow-up management communicated and Plan of Care Visit completed when applicable [facility] Large Joint Arthro/Inj: L kn ee jointon 02-14-2024 Nilda Kim PA -C 02/14/2024 1:53 PM Large Joint Arthro/Inj: L knee joint Informed Consent Consent Obtained: Verbal [place] Protocol A moment to CARE was completed. SIGN IN Sign in communication not applicable due to emergent procedure. Personnel directly involved with the procedure wore the appropriate PPE. Special Equipment: N/A Patient/Surrogate Stated/Verified: Patient name, Date of , Relevant allergies and Intended procedure TIME OUT Intended patient and procedure match the source document(s). Relevant labs, photos, and/or imaging studies have been reviewed. Correct side/site marked and visible. Medications required for procedure verified. No fire risk assessment and interventions applicable. No implant(s) inserted. 02/14/2024 1:53 PM The procedure site was prepped in the usual sterile fashion. Site: L knee joint Medications: 6 mg betamethasone acetate-betamethasone sodium phosphate 6 mg/mL Anesthetics: 4 mL lidocaine (PF) 10 mg/mL (1 %) Outcome: Tolerated well, no immediate complications Post-injection instructions were reviewed with the patient and the patient voiced understanding of these instructions. SIGN OUT All instruments, equipment, possible retained foreign bodies accounted for. [facility] Basophil percentageOrdered B y: Calderon Cordova on 12-14-2023 Chloride [Moles/Vol] 104 mmol/L 98-107 [facility] Glucose [Mass/Vol] 146 mg/dL 74-106 [facility] Comment on above: Fasting Glucose resu lt greater than or equal to 126 mg/dL suggests DIABETES MELLITUS per A.D.A. criteria. Potassium [Moles/Vol] 4.5 mmol/L 3.5-5.1 [facility] Sodium [Moles/Vol] 138 mmol/L 136-145 [facility] Laboratory - Chemistry and C hemistry - challengeOrdered By: Calderon Cordova on 12-14-2023 CO2 [Moles/Vol] 27.0 mmol/L 21.0-32.0 [facility] Urea nitrogen/Creatinine [Mass ratio] 20.5 mg/mg 10-20 [facility] No Panel InformationOrdered By: Calderon Cordova on 12-14-2023 Estimated GFR (MDRD) Amer 51 mL/min >60 [facility] Comment on above: GFR Calc Estimated GFR (MDRD) Non-Af Amer 42 mL/min >60 [facility] Comment on above: Non- GFR Calc Serum or plasma calcium rony urement (mass/volume)Ordered By: Calderon Cordova on 12-14-2023 Calcium [Mass/Vol] 9.6 mg/dL 8.5-10.1 [facility] Serum or plasma creatinine m easurement (mass/volume)Ordered By: Calderon Cordova on 12-14-2023 Creatinine [Mass/Vol] 1.71 mg/dL 0.70-1.30 [facility] Comment on above: The validity of the calculated GFR & GFRAA in patients over 70 years has not been determined. Clinical correlation is essential. Serum or plasma urea nitroge n measurement (mass/volume)Ordered By: Calderon Cordova on 12-14-2023 Urea nitrogen [Mass/Vol] 35 mg/dL 7-18 [facility] Thin prep Papanicolaou smear with manual screeningOrdered By: Calderon Cordova on 12-14-2023 Thin prep Papanicolaou smear with manual screening 7 5-15 [facility] Basophil percentageOrdered B y: Calderon Cordova on 12-06-2023 Bilirubin [Mass/Vol] 0.50 mg/dL 0.20-1.00 [facility] Comment on above: For patients on eltr ombopag therapy, use of Dimension [place] TBIL is not recommended. Chloride [Moles/Vol] 109 mmol/L 98-107 [facility] Glucose [Mass/Vol] 122 mg/dL 74-106 [facility] Comment on above: Fasting Glucose resu lt from 100 to 125 mg/dL suggests IMPAIRED HOMEOSTASIS per A.D.A. criteria. Potassium [Moles/Vol] 4.3 mmol/L 3.5-5.1 [facility] Protein [Mass/Vol] 6.9 g/dL 6.4-8.2 [facility] Sodium [Moles/Vol] 140 mmol/L 136-145 [facility] Laboratory - Chemistry and C hemistry - challengeOrdered By: Calderon Cordova on 12-06-2023 Albumin/Globulin [Mass ratio] 1.0 {ratio} 0.9-2.4 [facility] ALP [Catalytic activity/Vol] 35 U/L 45-117 [facility] ALT [Catalytic activity/Vol] 18 U/L 16-61 [facility] CO2 [Moles/Vol] 29.0 mmol/L 21.0-32.0 [facility] Globulin (S) [Mass/Vol] 3.4 g/dL 2.2-4.2 [facility] Urea nitrogen/Creatinine [Mass ratio] 21.3 mg/mg 10-20 [facility] No Panel InformationOrdered By: Calderon Cordova on 12-06-2023 Estimated GFR (MDRD) Amer 67 mL/min >60 [facility] Comment on above: GFR Calc Estimated GFR (MDRD) Non-Af Amer 55 mL/min >60 [facility] Comment on above: Non- GFR Calc Serum or plasma calcium rony urement (mass/volume)Ordered By: Calderon Cordova on 12-06-2023 Calcium [Mass/Vol] 9.3 mg/dL 8.5-10.1 [facility] Serum or plasma creatinine m easurement (mass/volume)Ordered By: Calderon Cordova on 12-06-2023 Creatinine [Mass/Vol] 1.36 mg/dL 0.70-1.30 [facility] Comment on above: The validity of the calculated GFR & GFRAA in patients over 70 years has not been determined. Clinical correlation is essential. Serum or plasma urea nitroge n measurement (mass/volume)Ordered By: Caldeorn Cordova on 12-06-2023 Urea nitrogen [Mass/Vol] 29 mg/dL 7-18 [facility] Thin prep Papanicolaou smear with manual screeningOrdered By: Calderon Cordova on 12-06-2023 Thin prep Papanicolaou smear with manual screening 3.5 g/dL 3.2-5.0 [facility] Thin prep Papanicolaou smear with manual screening 17 U/L 15-37 [facility] Thin prep Papanicolaou smear with manual screening 2 5-15 [facility] COLONOSCOPY SCREENINGon 11-2 [facility] Influenza virus A and B and SARS-CoV-2 (COVID-19) Ag panel - Upper respiratory specimOrdered By: Garry Warren on 06-09-2023 SARS-CoV-2 (COVID-19) RNA CHUY+probe Ql (Resp) [facility] XR KNEE GENERAL 4V AP BOTH/P A BOTH/LAT/MERC LEFTon 04-26-2023 [facility] CBC panel Auto (Bld)on 04-02 Erythrocyte distribution width (RBC) [Ratio] 13.0 % 11.5 - 15.0 % [facility] Hematocrit (Bld) [Volume fraction] 47.6 % 39.0 - 51.0 % [facility] Hemoglobin (Bld) [Mass/Vol] 15.2 g/dL 13.0 - 17.0 g/dL [facility] MCH (RBC) [Entitic mass] 31.1 pg 26.0 - 34.0 pg [facility] MCHC (RBC) [Mass/Vol] 31.9 g/dL 30.5 - 36.0 g/dL [facility] MCV (RBC) [Entitic vol] 97.3 fL 80.0 - 100.0 fL [facility] Nucleated RBC (Bld) [#/Vol] <0.01 k/uL [facility] Platelet mean volume (Bld) [Entitic vol] 10.6 fL 9.0 - 12.7 fL [facility] Platelets (Bld) [#/Vol] 312 10*3/uL 150 - 400 k/uL [facility] RBC (Bld) [#/Vol] 4.89 10*6/uL 4.20 - 6.0 0 m/uL [facility] WBC (Bld) [#/Vol] 9.97 10*3/uL 3.70 - 11. 00 k/uL [facility] HbA1c (Bld)on 04-02-2023 Average glucose Estimated from glycated hemoglobin (Bld) [Mass/Vol] 169 mg/dL [facility] HbA1c (Bld) [Mass fraction] 7.5 % High 4.3 - 5.6 % [facility] Basophil percentageOrdered B y: Dr. Barakat on 11-13-2022 Bilirubin [Mass/Vol] 0.30 mg/dL 0.20-1.00 [facility] Comment on above: For patients on eltr ombopag therapy, use of Dimension [place] TBIL is not recommended. Cholesterol [Mass/Vol] 135 mg/dL <200 [facility] Comment on above: <200 mg/dL Desirable 200-240 mg/dL Borderline >240 mg/dL High Risk Protein [Mass/Vol] 7.0 g/dL 6.4-8.2 [facility] Triglyceride [Mass/Vol] 79 mg/dL <199 [facility] Comment on above: The drugs N-Acetylcy steine and Metamizole may falsely depress this assay.Serum Triglycerides Reference Interval Normal <150 mg/dL Borderline high 150 - 199 mg/dL High 200 - 499 mg/dL Very High > or = 500 mg/dL Direct bilirubinOrdered By: Dr. Barakat on 11-13-2022 Bilirubin.direct [Mass/Vol] 0.12 mg/dL 0.00-0.30 [facility] Laboratory - Chemistry and C hemistry - challengeOrdered By: Dr. Barakat on 11-13-2022 ALP [Catalytic activity/Vol] 42 U/L 45-117 [facility] ALT [Catalytic activity/Vol] 22 U/L 16-61 [facility] Globulin (S) [Mass/Vol] 3.5 g/dL 2.2-4.2 [facility] Serum or plasma albumin rony urement (mass/volume)Ordered By: Dr. Barakat on 11-13-2022 Albumin [Mass/Vol] 3.5 g/dL 3.2-5.0 [facility] Serum or plasma cholesterol in HDL measurement (mass/volume)Ordered By: Dr. Barakat on 11-13-2022 Cholesterol in HDL [Mass/Vol] 54 mg/dL >40 [facility] Comment on above: The drugs N-Acetylcy steine and Metamizole may falsely depress this assay. Reference Range HDL <40 mg/dL Low HDL Cholesterol HDL >or= 60 mg/dL High HDL Cholesterol Serum or plasma cholesterol in VLDL measurement (mass/volume)Ordered By: Dr. Barakat on 11-13-2022 Cholesterol in VLDL [Mass/Vol] 16 mg/dL 5-40 [facility] Serum or plasma low density lipoprotein (LDL) cholesterol measurement (mass/volume)Ordered By: Dr. Barakat on 11-13-2022 Cholesterol in LDL [Mass/Vol] 65 mg/dL 0-130 [facility] Thin prep Papanicolaou smear with manual screeningOrdered By: Dr. Barakat on 11-13-2022 Thin prep Papanicolaou smear with manual screening 18 U/L 15-37 [facility] SURGICAL PATHOLOGYon 022 Case Report Surgical Pathology Report Case: [id number] Authorizing Provider: Madelin Blanc MD Collected: 09/23/2022 12:35 PM Ordering Location: Ambulatory Surgery Received: 09/23/2022 01:34 PM Pathologist: Fracisco David MD Specimen: TRANSVERSE COLON POLYP [facility] FINAL DIAGNOSIS Transverse colon june yp, biopsy: - Tubular adenoma. JEL 09/25/2022 [facility] Gross Description A. TRANSVERSE COLON POLYP Received in formalin is one piece of snow, soft tissue measuring 0.4 x 0.2 x 0.2 cm. Totally submitted in one cassette. Gross examination performed at [facility], [address] [place] [address] TTN 09/23/2022 11:34 PM [facility] Performing Lab Diagnostic interpretation performed at [facility], [address] [place] [address] CLIA# [id number] Physician Practice Consultant: Damien Golden M.D. [facility] COLONOSCOPY SCREENINGon 08-28 [facility] Basophil percentageon 2021 Chloride [Moles/Vol] 107 mmol/L 98-107 [facility] Work Phone: Glucose [Mass/Vol] 126 mg/dL 74-106 [facility] Work Phone: Comment on above: Fasting Glucose resu lt greater than or equal to 126 mg/dL suggests DIABETES MELLITUS per A.D.A. criteria. Potassium [Moles/Vol] 4.3 mmol/L 3.5-5.1 [facility] Work Phone: Sodium [Moles/Vol] 138 mmol/L 136-145 [facility] Work Phone: Laboratory - Chemistry and C hemistry - challengeon 05-28-2022 CO2 [Moles/Vol] 25.0 mmol/L 21.0-32.0 [facility] Work Phone: Urea nitrogen/Creatinine [Mass ratio] 14.4 mg/mg 10-20 [facility] Work Phone: No Panel Informationon 05-28 Estimated GFR (MDRD) Amer 79 mL/min >60 [facility] Work Phone: Comment on above: GFR Calc Estimated GFR (MDRD) Non-Af Amer 65 mL/min >60 [facility] Work Phone: Comment on above: Non- GFR Calc Serum or plasma calcium rony urement (mass/volume)on 05-28-2022 Calcium [Mass/Vol] 9.3 mg/dL 8.5-10.1 [facility] Work Phone: Serum or plasma creatinine m easurement (mass/volume)on 05-28-2022 Creatinine [Mass/Vol] 1.18 mg/dL 0.70-1.30 [facility] Work Phone: Comment on above: The validity of the calculated GFR & GFRAA in patients over 70 years has not been determined. Clinical correlation is essential. Serum or plasma urea nitroge n measurement (mass/volume)on 05-28-2022 Urea nitrogen [Mass/Vol] 17 mg/dL 7-18 [facility] Work Phone: Thin prep Papanicolaou smear with manual screeningon 05-28-2022 Thin prep Papanicolaou smear with manual screening 6 5-15 [facility] Work Phone: Basophil percentageon 2021 Chloride [Moles/Vol] 106 mmol/L 98-107 [facility] Work Phone: Glucose [Mass/Vol] 147 mg/dL 74-106 [facility] Work Phone: Comment on above: Fasting Glucose resu lt greater than or equal to 126 mg/dL suggests DIABETES MELLITUS per A.D.A. criteria. Potassium [Moles/Vol] 4.4 mmol/L 3.5-5.1 [facility] Work Phone: Sodium [Moles/Vol] 140 mmol/L 136-145 [facility] Work Phone: WBC (Bld) [#/Vol] 9.8 10*3/uL 4.4-11.0 [facility] Work Phone: [phone] Blood erythrocytes count (nu mber/volume)on 05-11-2022 RBC (Bld) [#/Vol] 4.80 10*6/uL 4.6-6.2 [facility] Work Phone: Blood hemoglobin measurement (mass/volume)on 05-11-2022 Hemoglobin (Bld) [Mass/Vol] 15.2 g/dL 13.0-16.5 [facility] Work Phone: Blood platelet mean volumeon 05-11-2022 Platelet mean volume (Bld) [Entitic vol] 9.8 fL 6.2-12.0 [facility] Work Phone: Determination of erythrocyte mean corpuscular volume (MCV)on 05-11-2022 MCV (RBC) [Entitic vol] 95.6 fL 80-94 [facility] Work Phone: Hematocrit Auto (Bld) [Volum e fraction]on 05-11-2022 Hematocrit (Bld) [Volume fraction] 45.9 % 40-54 [facility] Work Phone: INR in Blood by Coagulation assayon 05-11-2022 INR Coag (Bld) [Relative time] 0.9 {INR} [facility] Work Phone: Laboratory - Chemistry and C hemistry - challengeon 05-11-2022 CO2 [Moles/Vol] 29.0 mmol/L 21.0-32.0 [facility] Work Phone: Urea nitrogen/Creatinine [Mass ratio] 22.0 mg/mg 10-20 [facility] Work Phone: Laboratory - Coagulationon 0 05-11-2022 aPTT Coag (Bld) [Time] 24.9 s 24.1-36.2 [facility] Work Phone: [phone] PT Coag (PPP) [Time] 12.3 s 11.7-14.9 [facility] Work Phone: Laboratory - Hematology and Cell countson 05-11-2022 Erythrocyte distribution width (RBC) [Entitic vol] 43.6 fL 35.1-43.9 [facility] Work Phone: [phone] Erythrocyte distribution width (RBC) [Ratio] 12.3 % 11.6-14.6 [facility] Work Phone: MCH (RBC) [Entitic mass] 31.7 pg 27.0-32.0 [facility] Work Phone: MCHC Auto (RBC) [Mass/Vol]on 05-11-2022 MCHC (RBC) [Mass/Vol] 33.1 g/dL 32-36 [facility] Work Phone: No Panel Informationon 05-11 Estimated GFR (MDRD) Amer 72 mL/min >60 [facility] Work Phone: Comment on above: GFR Calc Estimated GFR (MDRD) Non-Af Amer 60 mL/min >60 [facility] Work Phone: Comment on above: Non- GFR Calc Platelets bldon 05-11-2022 Platelets (Bld) [#/Vol] 313 10*3/uL 150-450 [facility] Work Phone: Serum or plasma calcium rony urement (mass/volume)on 05-11-2022 Calcium [Mass/Vol] 9.3 mg/dL 8.5-10.1 [facility] Work Phone: Serum or plasma creatinine m easurement (mass/volume)on 05-11-2022 Creatinine [Mass/Vol] 1.27 mg/dL 0.70-1.30 [facility] Work Phone: Comment on above: The validity of the calculated GFR & GFRAA in patients over 70 years has not been determined. Clinical correlation is essential. Serum or plasma urea nitroge n measurement (mass/volume)on 05-11-2022 Urea nitrogen [Mass/Vol] 28 mg/dL 7-18 [facility] Work Phone: Thin prep Papanicolaou smear with manual screeningon 05-11-2022 Thin prep Papanicolaou smear with manual screening 5 5-15 [facility] Work Phone: Absolute lymphocyte counton 04-22-2022 Lymphocytes Auto (Unsp spec) [#/Vol] 1.31 10*3/uL 0.83-4.51 [facility] Work Phone: Basophil percentageon 2021 Basophils/100 WBC (Bld) 0.7 % 0-1 [facility] Work Phone: Eosinophils/100 WBC (Bld) 3.2 % 0-5 [facility] Work Phone: Neutrophils (Bld) [#/Vol] 4.8 10*3/uL 2.0-7.7 [facility] Work Phone: Neutrophils/100 WBC (Bld) 67.8 % 47-70 [facility] Work Phone: Blood lymphocytes/100 leukoc yteson 04-22-2022 Lymphocytes/100 WBC (Bld) 18.4 % 19-41 [facility] Work Phone: Blood monocytes/100 leukocyt eson 04-22-2022 Monocytes/100 WBC (Bld) 9.8 % 0-10 [facility] Work Phone: Laboratory - Hematology and Cell countson 04-22-2022 Immature granulocytes/100 WBC (Bld) 0.100 % 0.0-0.9 [facility] Work Phone: Comment on above: IG% - Immature Granu locytes (promyelocytes, myelocytes and metamyelocytes) > 1% indicates that a LEFT SHIFT is Present. Nucleated RBC/100 WBC (Bld) [Ratio] 0 % 0-5 [facility] Work Phone: Basophil percentageon 2021 Bilirubin [Mass/Vol] 0.30 mg/dL 0.20-1.00 [facility] Work Phone: [phone] Comment on above: For patients on eltr ombopag therapy, use of Dimension [place] TBIL is not recommended. Cholesterol [Mass/Vol] 162 mg/dL <200 [facility] Work Phone: [phone] Comment on above: <200 mg/dL Desirable 200-240 mg/dL Borderline >240 mg/dL High Risk Protein [Mass/Vol] 6.7 g/dL 6.4-8.2 [facility] Work Phone: [phone] Triglyceride [Mass/Vol] 74 mg/dL <199 [facility] Work Phone: [phone] Comment on above: The drugs N-Acetylcy steine and Metamizole may falsely depress this assay.Serum Triglycerides Reference Interval Normal <150 mg/dL Borderline high 150 - 199 mg/dL High 200 - 499 mg/dL Very High > or = 500 mg/dL Direct bilirubinon 2 Bilirubin.direct [Mass/Vol] 0.16 mg/dL 0.00-0.30 [facility] Work Phone: [phone] Laboratory - Chemistry and C hemistry - challengeon 04-14-2022 ALP [Catalytic activity/Vol] 41 U/L 45-117 [facility] Work Phone: [phone] ALT [Catalytic activity/Vol] 26 U/L 16-61 [facility] Work Phone: [phone] Globulin (S) [Mass/Vol] 3.1 g/dL 2.2-4.2 [facility] Work Phone: [phone] Serum or plasma albumin rony urement (mass/volume)on 04-14-2022 Albumin [Mass/Vol] 3.6 g/dL 3.2-5.0 [facility] Work Phone: Serum or plasma cholesterol in HDL measurement (mass/volume)on 04-14-2022 Cholesterol in HDL [Mass/Vol] 55 mg/dL >40 [facility] Work Phone: Comment on above: The drugs N-Acetylcy steine and Metamizole may falsely depress this assay. Reference Range HDL <40 mg/dL Low HDL Cholesterol HDL >or= 60 mg/dL High HDL Cholesterol Serum or plasma cholesterol in VLDL measurement (mass/volume)on 04-14-2022 Cholesterol in VLDL [Mass/Vol] 15 mg/dL 5-40 [facility] Work Phone: Serum or plasma low density lipoprotein (LDL) cholesterol measurement (mass/volume)on 04-14-2022 Cholesterol in LDL [Mass/Vol] 92 mg/dL 0-130 [facility] Work Phone: Thin prep Papanicolaou smear with manual screeningon 04-14-2022 Thin prep Papanicolaou smear with manual screening 19 U/L 15-37 [facility] Work Phone: XR Chest PA and Lateralon IMPRESSION: No acute radiographic abnormality. Care Companion: [facility] Transcribe Date/Time: Feb 13 2022 10:04A Dictated by : SARY GENTILE MD This examination was interpreted and the report reviewed and electronically signed by: SARY GENTILE MD on Feb 13 2022 10:13AM EST [id number]_U SE_DIVISION OF RADIOLOGY * * *Final Report* * * DATE OF EXAM: Feb 12 2022 4:20PM WOX 5291 - XR CHEST 2V FRONTAL/LAT / PROCEDURE REASON: Bronchitis with bronchospasm * * * * Physician Interpretation * * * * EXAMINATION: CHEST RADIOGRAPH (2 VIEW FRONTAL & LATERAL) CLINICAL HISTORY: Bronchitis with bronchospasm MQ: XC2_6 EXAM DATE/TIME: 02/12/2022 4:20 PM COMPARISON: Chest x-ray 03/11/2017 RESULT: Lines, tubes, and devices: None. Lungs and pleura: No consolidation. No lung mass. No pleural effusion. No pneumothorax. Cardiomediastinal silhouette: Normal cardiomediastinal silhouette. Bones and soft tissues: Degenerative disease of the thoracic spine. [id number]_U _DIVISION OF RADIOLOGY Provider, [facility] Mitchel brumfield [place] - 02/13/2022 * * *Final Report* * * DATE OF EXAM: Feb 12 2022 4:20PM WOX 5291 - XR CHEST 2V FRONTAL/LAT / PROCEDURE REASON: Bronchitis with bronchospasm * * * * Physician Interpretation * * * * EXAMINATION: CHEST RADIOGRAPH (2 VIEW FRONTAL & LATERAL) CLINICAL HISTORY: Bronchitis with bronchospasm MQ: XC2_6 EXAM DATE/TIME: 02/12/2022 4:20 PM COMPARISON: Chest x-ray 03/11/2017 RESULT: Lines, tubes, and devices: None. Lungs and pleura: No consolidation. No lung mass. No pleural effusion. No pneumothorax. Cardiomediastinal silhouette: Normal cardiomediastinal silhouette. Bones and soft tissues: Degenerative disease of the thoracic spine. IMPRESSION IMPRESSION: No acute radiographic abnormality. Care Companion: CYNTHIA Transcribe Date/Time: Feb 13 2022 10:04A Dictated by : SARY GENTILE MD This examination was interpreted and the report reviewed and electronically signed by: SARY GENTILE MD on Feb 13 2022 10:13AM EST [facility] XR Chest PA and LateralOrder ed By: [facility] Provider on 02-13-2022 [facility] XR Chest PA and Lateralon Radiology Study observation (narrative) [facility] XR Knee - left 4 Viewson IMPRESSION: Degenerative changes as detailed in report. Small amount of left suprapatellar joint fluid. Care Companion: [facility] Transcribe Date/Time: Nov 28 2021 4:29P Dictated by : MALIA THOMAS MD This examination was interpreted and the report reviewed and electronically signed by: MALIA THOMAS MD on Nov 28 2021 4:32PM [facility] DIVISION OF RADIOLOGY * * *Final Report* * * DATE OF EXAM: Nov 28 2021 4:26PM WOX 5202 - XR KNEE 4V AP/PA BOTH+LAT/ALANNA LT / PROCEDURE REASON: multiple diagnoses * * * * Physician Interpretation * * * * EXAMINATION: XR KNEE 4V AP/PA BOTH+LAT/ALANNA LT HISTORY: Chronic worsening left knee pain. Pain is anterior. Negative injury. TECHNIQUE: XR KNEE 4V AP/PA BOTH+LAT/ALANNA LT Laterality: LEFT Number of different views (projections): 4 M: XB_1 COMPARISON: Comparison is made to left knee dated 03 Feb 2013 RESULT: Standing frontal radiographs of the bilateral knees with bilateral PA flexion views, sunrise views and a lateral view of the left knee show no acute osseous or articular process. There is pancompartmental degenerative change present with periarticular osteophytosis and narrowing of the left medial tibiofemoral joint compartment. There is an associated mild varus deformity. There is left intercondylar and patellar spurring with preservation of the patellofemoral joint spaces. There is a small amount of left suprapatellar joint fluid. The soft tissues are unremarkable. DIVISION OF RADIOLOGY Provider, [facility] - 11/28/2021 * * *Final Report* * * DATE OF EXAM: Nov 28 2021 4:26PM WOX 5202 - XR KNEE 4V AP/PA BOTH+LAT/ALANNA LT / PROCEDURE REASON: multiple diagnoses * * * * Physician Interpretation * * * * EXAMINATION: XR KNEE 4V AP/PA BOTH+LAT/ALANNA LT HISTORY: Chronic worsening left knee pain. Pain is anterior. Negative injury. TECHNIQUE: XR KNEE 4V AP/PA BOTH+LAT/ALANNA LT Laterality: LEFT Number of different views (projections): 4 M: XB_1 COMPARISON: Comparison is made to left knee dated 03 Feb 2013 RESULT: Standing frontal radiographs of the bilateral knees with bilateral PA flexion views, sunrise views and a lateral view of the left knee show no acute osseous or articular process. There is pancompartmental degenerative change present with periarticular osteophytosis and narrowing of the left medial tibiofemoral joint compartment. There is an associated mild varus deformity. There is left intercondylar and patellar spurring with preservation of the patellofemoral joint spaces. There is a small amount of left suprapatellar joint fluid. The soft tissues are unremarkable. IMPRESSION IMPRESSION: Degenerative changes as detailed in report. Small amount of left suprapatellar joint fluid. 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 04-28-2017 Left ventricular Ejection fraction 57 % Invalid Interpretation Code [facility] Work Phone: [phone] Office Visit: [facility] 10-30-19 17 Dietary management education, guidance, and counseling (procedure) yes Invalid Interpretation Code [email or web address] Work Phone: [phone] Documentation of current medications (procedure) Done Invalid Interpretation Code [email or web address] Work Phone: [phone] Clinical Lists Update: Prelo meal packer 07-30-2015 Anion gap 5 mmol/L Invalid Interpretation Code [email or web address] Work Phone: [phone] BUN/Creatinine Ratio 17.9 mg/mg Invalid Interpretation Code [email or web address] Work Phone: [phone] Calcium 8.9 mg/dL Invalid Interpretation Code [email or web address] Work Phone: [phone] Chloride 107 mmol/L Invalid Interpretation Code [email or web address] Work Phone: [phone] CO2 27 mmol/L Invalid Interpretation Code [employer] Work Phone: [phone] Creatinine 0.78 mg/dL Invalid Interpretation Code [facility] Work Phone: [phone] Glucose 130 mg/dL High [employer] Work Phone: [phone] Potassium 4.0 mmol/L Invalid Interpretation Code [facility] Work Phone: [phone] Sodium 139 mmol/L Invalid Interpretation Code [employer] Work Phone: [phone] Tobacco use CPHS Current every day smoker Invalid Interpretation Code [employer] Work Phone: [phone] Urea nitrogen 14 mg/dL Invalid Interpretation Code [email or web address] Work Phone: [phone] Clinical Lists Update: Prelo meal packer 07-21-2015 Cholesterol 243 mg/dL Invalid Interpretation Code [email or web address] Work Phone: [phone] Erythrocytes (RBC) 4.46 10*6/uL [facility]: [phone] HDL Cholesterol 47 mg/dL Invalid Interpretation Code [facility] Work Phone: [phone] Hematocrit (HCT) 42.5 % Invalid Interpretation Code [facility] Work Phone: [phone] Hemoglobin (HGB) 13.9 g/dL Invalid Interpretation Code [facility] Work Phone: [phone] LDL Cholesterol 166 mg/dL Invalid Interpretation Code [facility] Work Phone: [phone] Platelets 255 10*3/mm3 Invalid Interpretation Code [facility] Work Phone: [phone] Triglyceride 149 mg/dL Invalid Interpretation Code [facility] Work Phone: [phone] WBC (Leukocytes) 7.6 10*3/uL Invalid Interpretation Code [facility] Work Phone: [phone] Clinical Lists Update: Prelo meal packer 07-20-2015 Thyroid stimulating hormone (TSH) 0.45 u[iU]/mL Invalid Interpretation Code [facility] Work Phone: [phone] No Panel Information [facility] SARS-CoV-2 (COVID-19) Ag IA. rapid Ql (Resp) SARS-CoV-2 Antigen (Rapid) SARS-CoV-2 (COVID 19) [facility] Work Phone: Vital Signs Date Time Vital Sign Value Performing Clinician Deb brown 05-10-2025 13:24-0400 Body mass index (BMI) [Ratio] 35.23 kg/m2 Terri Aguirre MD Work Phone: [facility] 05-10-2025 13:24-0400 Body weight 100.61 kg Terri Aguirre MD Work Phone: [facility] 05-10-2025 13:24-0400 Diastolic blood pressure 77 mm[Hg] Terri Aguirre MD Work Phone: [facility] 05-10-2025 13:24-0400 Heart rate 89 /min Terri Aguirre MD Work Phone: [facility] 05-10-2025 13:24-0400 Respiratory rate 16 /min Terri Aguirre MD Work Phone: [facility] 05-10-2025 13:24-0400 Systolic blood pressure 126 mm[Hg] Terri Aguirre MD Work Phone: [facility] 04-10-2025 13:50-0400 Body height 169 cm Liat Mary 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 Work Phone: [facility] 04-10-2025 13:50-0400 Body mass index (BMI) [Ratio] 34.98 kg/m2 Liat Mary 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 Work Phone: [facility] 04-10-2025 13:50-0400 Body weight 99.9 kg Liat Mary 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 Work Phone: [facility] 04-10-2025 13:50-0400 Diastolic blood pressure 72 mm[Hg] Liat Mary 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 Work Phone: [facility] 04-10-2025 13:50-0400 Heart rate 68 /min Liat Mary 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 Work Phone: [facility] 04-10-2025 13:50-0400 Respiratory rate 14 /min Liat Mary 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 Work Phone: [facility] 04-10-2025 13:50-0400 SaO2% (BldA) [Mass fraction] 96 % Liat Mary 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 Work Phone: [facility] 04-10-2025 13:50-0400 Systolic blood pressure 126 mm[Hg] Liat Mary 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 Work Phone: [facility] 12-04-2024 14:28-0400 Body mass index (BMI) [Ratio] 35.63 kg/m2 Tito Evans [employer]IGH 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 Work Phone: [facility] 12-04-2024 14:28-0400 Body weight 100.88 kg Tito Nathan 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 Work Phone: [facility] 12-04-2024 14:28-0400 Diastolic blood pressure 72 mm[Hg] Tito Nathan [employer]IGH 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 Work Phone: [facility] 12-04-2024 14:28-0400 Heart rate 74 /min Tito Nathan 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 Work Phone: [facility] 12-04-2024 14:28-0400 Respiratory rate 18 /min Tito Nathan [employer]IGH 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 Work Phone: [facility] 12-04-2024 14:28-0400 SaO2% (BldA) [Mass fraction] 93 % Tito Nathan [employer]IGH 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 Work Phone: [facility] 12-04-2024 14:28-0400 Systolic blood pressure 103 mm[Hg] Tito Nathan [employer]IGH 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 Work Phone: [facility] 11-02-2024 14:06-0500 Body mass index (BMI) [Ratio] 35.81 kg/m2 Grant Krause MD Work Phone: [facility] 11-02-2024 14:06-0500 Body temperature 98.29 [degF] Grant Krause MD Work Phone: [facility] 11-02-2024 14:06-0500 Body weight 101.4 kg Grant Krause MD Work Phone: [facility] 11-02-2024 14:06-0500 Diastolic blood pressure 66 mm[Hg] Grant Krause MD Work Phone: [facility] 11-02-2024 14:06-0500 Heart rate 76 /min Grant Krause MD Work Phone: [facility] 11-02-2024 14:06-0500 Respiratory rate 16 /min Grant Krause MD Work Phone: [facility] 11-02-2024 14:06-0500 Systolic blood pressure 110 mm[Hg] Grant Krause MD Work Phone: [facility] 10-09-2024 12:59-0500 Body mass index (BMI) [Ratio] 35.67 kg/m2 Grant Krause MD Work Phone: [facility] 10-09-2024 12:59-0500 Body temperature 98.1 [degF] Grant Krause MD Work Phone: [facility] 10-09-2024 12:59-0500 Body weight 101 kg Grant Krause MD Work Phone: [facility] 10-09-2024 12:59-0500 Diastolic blood pressure 76 mm[Hg] Grant Krause MD Work Phone: [facility] 10-09-2024 12:59-0500 Heart rate 64 /min Grant Krause MD Work Phone: [facility] 10-09-2024 12:59-0500 Respiratory rate 16 /min Grant Krause MD Work Phone: [facility] 10-09-2024 12:59-0500 Systolic blood pressure 118 mm[Hg] Grant Krause MD Work Phone: [facility] 07-21-2024 15:41-0400 Body mass index (BMI) [Ratio] 35.46 kg/m2 Tad Moomaw [employer]IGH 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 Work Phone: [facility] 07-21-2024 15:41-0400 Body temperature 99.61 [degF] Tad Moomaw [employer]IGH 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 Work Phone: [facility] 07-21-2024 15:41-0400 Body weight 100.4 kg Tad Moomaw HIGH 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 Work Phone: [facility] 07-21-2024 15:41-0400 Diastolic blood pressure 78 mm[Hg] Tad Moomaw [employer]IGH 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 Work Phone: [facility] 07-21-2024 15:41-0400 Heart rate 102 /min Tad Moomaw [employer]IGH 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 Work Phone: [facility] 07-21-2024 15:41-0400 Respiratory rate 18 /min Tad Moomaw [employer]IGH 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 Work Phone: [facility] 07-21-2024 15:41-0400 SaO2% (BldA) [Mass fraction] 96 % Tad Moomaw [employer]IGH 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 Work Phone: [facility] 07-21-2024 15:41-0400 Systolic blood pressure 128 mm[Hg] Tad Moomaw [employer]IGH 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 Work Phone: [facility] 07-19-2024 14:18-0400 Body mass index (BMI) [Ratio] 35.88 kg/m2 Grant Krause MD Work Phone: [facility] 07-19-2024 14:18-0400 Body temperature 98.01 [degF] Grant Krause MD Work Phone: [facility] 07-19-2024 14:18-0400 Body weight 101.6 kg Grant Krause MD Work Phone: [facility] 07-19-2024 14:18-0400 Diastolic blood pressure 60 mm[Hg] Grant Krause MD Work Phone: [facility] 07-19-2024 14:18-0400 Heart rate 64 /min Grant Krause MD Work Phone: [facility] 07-19-2024 14:18-0400 Respiratory rate 16 /min Grant Krause MD Work Phone: [facility] 07-19-2024 14:18-0400 Systolic blood pressure 102 mm[Hg] Grant Krause MD Work Phone: [facility] 06-16-2024 14:45-0400 Body mass index (BMI) [Ratio] 35.03 kg/m2 Grant Krause MD Work Phone: [facility] 06-16-2024 14:45-0400 Body temperature 97.39 [degF] Grant Krause MD Work Phone: [facility] 06-16-2024 14:45-0400 Body weight 99.2 kg Grant Krause MD Work Phone: [facility] 06-16-2024 14:45-0400 Diastolic blood pressure 82 mm[Hg] Grant Krause MD Work Phone: [facility] 06-16-2024 14:45-0400 Heart rate 72 /min Grant Krause MD Work Phone: [facility] 06-16-2024 14:45-0400 Respiratory rate 18 /min Grant Krause MD Work Phone: [facility] 06-16-2024 14:45-0400 SaO2% (BldA) [Mass fraction] 96 % Grant Krause MD Work Phone: [facility] 06-16-2024 14:45-0400 Systolic blood pressure 118 mm[Hg] Grant Krause MD Work Phone: [facility] 02-22-2024 12:51-0400 Body mass index (BMI) [Ratio] 35.34 kg/m2 Liat Mary 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 Work Phone: [facility] 02-22-2024 12:51-0400 Body weight 100.06 kg Liat Mary 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 Work Phone: [facility] 02-22-2024 12:51-0400 Diastolic blood pressure 60 mm[Hg] Liat Mary 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 Work Phone: [facility] 02-22-2024 12:51-0400 Heart rate 60 /min Liat Mary 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 Work Phone: [facility] 02-22-2024 12:51-0400 Respiratory rate 20 /min Liat Mary [employer] 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 Work Phone: [facility] 02-22-2024 12:51-0400 Systolic blood pressure 106 mm[Hg] Liat Mary [employer]IGH 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 Work Phone: [facility] 02-07-2024 12:49-0400 Body height 168.3 cm Liat Mary 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 Work Phone: [facility] 02-07-2024 12:49-0400 Body mass index (BMI) [Ratio] 36.04 kg/m2 Liat Mary 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 Work Phone: [facility] 02-07-2024 12:49-0400 Body weight 102.06 kg Liat Mary 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 Work Phone: [facility] 02-07-2024 12:49-0400 Diastolic blood pressure 68 mm[Hg] Liat Mary [employer]IGH 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 Work Phone: [facility] 02-07-2024 12:49-0400 Heart rate 69 /min Liat Mary 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 Work Phone: [facility] 02-07-2024 12:49-0400 Respiratory rate 16 /min [facility] Mary [employer] 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 Work Phone: [facility] 02-07-2024 12:49-0400 SaO2% (BldA) [Mass fraction] 94 % [facility] Mary [employer] 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 Work Phone: [facility] 02-07-2024 12:49-0400 Systolic blood pressure 110 mm[Hg] Liat Mary [employer] 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 Work Phone: [facility] 12-06-2023 14:44-0400 Body height 170.[address] Grant Krause Work Phone: [facility] 12-06-2023 14:44-0400 Body mass index (BMI) [Ratio] 34.9 kg/m2 Dr. Grant Krause Work Phone: [facility] 12-06-2023 14:44-0400 Body weight 101.[address] Grant Krause Work Phone: [facility] 12-06-2023 14:44-0400 Diastolic blood pressure 81 mm[Hg] Dr. Grant Krause Work Phone: [facility] 12-06-2023 14:44-0400 Heart rate 74 /min Dr. Grant Krause Work Phone: [facility] 12-06-2023 14:44-0400 Respiratory rate 16 /min Dr. Grant Krause Work Phone: [facility] 12-06-2023 14:44-0400 Systolic blood pressure 128 mm[Hg] Dr. Grant Krause Work Phone: [facility] 08-25-2023 09:56-0500 Diastolic blood pressure 78 mm[Hg] Madelin Blanc MD Work Phone: [facility] 08-25-2023 09:56-0500 Heart rate 82 /min Madelin Blanc MD Work Phone: [facility] 08-25-2023 09:56-0500 Respiratory rate 16 /min Madelin Blanc MD Work Phone: [facility] 08-25-2023 09:56-0500 SaO2% (BldA) [Mass fraction] 96 % Madelin Blanc MD Work Phone: [facility] 08-25-2023 09:56-0500 Systolic blood pressure 148 mm[Hg] Madelin Blanc MD Work Phone: [facility] 08-25-2023 08:14-0500 Body temperature 97.11 [degF] Madelin Blanc MD Work Phone: [facility] 08-25-2023 08:14-0500 Body weight 100.6 kg Madelin Blanc MD Work Phone: [facility] 08-04-2023 15:40-0500 Body height 170.2 cm Madelin Blanc MD Work Phone: [facility] 08-04-2023 15:40-0500 Body temperature 98.6 [degF] Madelin Blanc MD Work Phone: [facility] 08-04-2023 15:40-0500 Body weight 100.61 kg Madelin Blanc MD Work Phone: [facility] 08-04-2023 15:40-0500 Diastolic blood pressure 82 mm[Hg] Madelin Blanc MD Work Phone: [facility] 08-04-2023 15:40-0500 Heart rate 77 /min Madelin Blanc MD Work Phone: [facility] 08-04-2023 15:40-0500 SaO2% (BldA) [Mass fraction] 96 % Madelin Blanc MD Work Phone: [facility] 08-04-2023 15:40-0500 Systolic blood pressure 126 mm[Hg] Madelin Blanc MD Work Phone: [facility] 06-09-2023 11:34-0400 Body height 170.[address] Grant Krause Work Phone: 7([phone])710-472760 [place] [address] 06-09-2023 11:34-0400 Body mass index (BMI) [Ratio] 34.4 kg/m2 Dr. Grant Krause Work Phone: 7(138)776-542860 [place] [address] 06-09-2023 11:34-0400 Body temperature 97.2 [degF] Dr. Grant Krause Work Phone: 4(474)[phone] [place] [address] 06-09-2023 11:34-0400 Body weight 99.[address] Grant Krause Work Phone: 1(387)524-518160 [place] [address] 06-09-2023 11:34-0400 Diastolic blood pressure 81 mm[Hg] Dr. Grant Krause Work Phone: 0(449)135-118960 [place] [address] 06-09-2023 11:34-0400 Heart rate 68 /min Dr. Grant Krause Work Phone: 9(353)661-534660 [place] [address] 06-09-2023 11:34-0400 Respiratory rate 18 /min Dr. Grant Krause Work Phone: 6(670)520-108760 [place] [address] 06-09-2023 11:34-0400 SaO2% (BldA) [Mass fraction] 96 % Dr. Grant Krause Work Phone: 1(128)943-352260 [place] [address] 06-09-2023 11:34-0400 Systolic blood pressure 131 mm[Hg] Dr. Grant Krause Work Phone: [facility] 05-14-2023 11:20-0400 Body mass index (BMI) [Ratio] 33.3 kg/m2 Dr. Grant Krause Work Phone: [facility] 05-14-2023 11:20-0400 Body weight 96.[address] Grant Krause Work Phone: [facility] 05-14-2023 11:20-0400 Diastolic blood pressure 67 mm[Hg] Dr. Grant Krause Work Phone: [facility] 05-14-2023 11:20-0400 Heart rate 62 /min Dr. Grant Krause Work Phone: 9(326)929-290460 [place] [address] 05-14-2023 11:20-0400 Respiratory rate 18 /min Dr. Grant Krause Work Phone: [facility] 05-14-2023 11:20-0400 Systolic blood pressure 109 mm[Hg] Dr. Grant Krause Work Phone: [facility] 04-02-2023 13:11-0400 Body weight 98.88 kg Grant Krause MD Work Phone: [facility] 04-02-2023 13:11-0400 Diastolic blood pressure 72 mm[Hg] Grant Krause MD Work Phone: [facility] 04-02-2023 13:11-0400 Heart rate 64 /min Grant Krause MD Work Phone: [facility] 04-02-2023 13:11-0400 Respiratory rate 18 /min Grant Krause MD Work Phone: [facility] 04-02-2023 13:11-0400 Systolic blood pressure 114 mm[Hg] Grant Krause MD Work Phone: [facility] 12-16-2022 15:18-0400 Body height 168 cm Liat Older [employer]IGH 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 Work Phone: [facility] 12-16-2022 15:18-0400 Body weight 97.98 kg Liat Older [employer]IGH 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 Work Phone: [facility] 12-16-2022 15:18-0400 Diastolic blood pressure 77 mm[Hg] Liat Older HIGH 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 Work Phone: [facility] 12-16-2022 15:18-0400 Heart rate 69 /min Liat Older HIGH 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 Work Phone: [facility] 12-16-2022 15:18-0400 Respiratory rate 18 /min Liat Older HIGH 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 Work Phone: [facility] 12-16-2022 15:18-0400 Systolic blood pressure 113 mm[Hg] Liat Older HIGH 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 Work Phone: [facility] 11-13-2022 11:03-0500 Body height 170.[address] Grant Krause Work Phone: [facility] 11-13-2022 11:03-0500 Body mass index (BMI) [Ratio] 34.1 kg/m2 Dr. Grant Krause Work Phone: [facility] 11-13-2022 11:03-0500 Body weight 98.[address] Grant Krause Work Phone: [facility] 11-13-2022 11:03-0500 Diastolic blood pressure 72 mm[Hg] Dr. Grant Krause Work Phone: [facility] 11-13-2022 11:03-0500 Heart rate 64 /min Dr. Grant Krause Work Phone: [facility] 11-13-2022 11:03-0500 Respiratory rate 18 /min Dr. Grant Krause Work Phone: [facility] 11-13-2022 11:03-0500 Systolic blood pressure 118 mm[Hg] Dr. Grant Krause Work Phone: [facility] 09-23-2022 13:13-0500 Diastolic blood pressure 73 mm[Hg] Madelin Blanc MD Work Phone: [facility] 09-23-2022 13:13-0500 Heart rate 76 /min Madelin Blanc MD Work Phone: [facility] 09-23-2022 13:13-0500 Respiratory rate 16 /min Madelin Blanc MD Work Phone: [facility] 09-23-2022 13:13-0500 SaO2% (BldA) [Mass fraction] 93 % Madelin Blanc MD Work Phone: [facility] 09-23-2022 13:13-0500 Systolic blood pressure 117 mm[Hg] Madelin Blanc MD Work Phone: [facility] 09-23-2022 11:05-0500 Body temperature 97.5 [degF] Madelin Blanc MD Work Phone: [facility] 05-26-2022 07:44-0400 Body height 170.[address] Grant Krause Work Phone: [facility] Work Phone: 05-26-2022 07:44-0400 Body weight 90.[address] Grant Krause Work Phone: [facility] Work Phone: 05-25-2022 08:13-0400 Body mass index (BMI) [Ratio] 31.3 kg/m2 Dr. Grant Krause Work Phone: [facility] Work Phone: 05-11-2022 13:58-0400 Body temperature 98.1 [degF] Grant Krause MD Work Phone: [facility] 05-11-2022 13:58-0400 Body weight 88.36 kg Grant Krause MD Work Phone: [facility] 05-11-2022 13:58-0400 Diastolic blood pressure 80 mm[Hg] Grant Krause MD Work Phone: [facility] 05-11-2022 13:58-0400 Heart rate 80 /min Grant Krause MD Work Phone: [facility] 05-11-2022 13:58-0400 Respiratory rate 16 /min Grant Krause MD Work Phone: [facility] 05-11-2022 13:58-0400 Systolic blood pressure 102 mm[Hg] Grant Krause MD Work Phone: [facility] 04-26-2022 00:21-0400 Heart rate 94 /min Dr. Grant Krause Work Phone: [facility] Work Phone: 04-26-2022 00:21-0400 Respiratory rate 17 /min Dr. Grant Krause Work Phone: [facility] Work Phone: 04-26-2022 00:21-0400 SaO2% (BldA) [Mass fraction] 99 % Dr. Grant Krause Work Phone: [facility] Work Phone: 04-25-2022 22:42-0400 Body height 170.[address] Grant Krause Work Phone: [facility] Work Phone: 04-25-2022 22:42-0400 Body mass index (BMI) [Ratio] 29 kg/m2 Dr. Grant Krause Work Phone: [facility] Work Phone: 04-25-2022 22:42-0400 Body temperature 98.9 [degF] Dr. Garnt Krause Work Phone: [facility] Work Phone: 04-25-2022 22:42-0400 Body weight 83.[address] Grant Krause Work Phone: [facility] Work Phone: 04-25-2022 22:42-0400 Diastolic blood pressure 88 mm[Hg] Dr. Grant Krause Work Phone: [facility] Work Phone: 04-25-2022 22:42-0400 Systolic blood pressure 158 mm[Hg] Dr. Grant Krause Work Phone: [facility] Work Phone: 04-22-2022 09:07-0400 Body mass index (BMI) [Ratio] 31.4 kg/m2 Dr. Grant Krause Work Phone: [facility] Work Phone: 04-22-2022 09:07-0400 Body weight 90.[address] Grant Krause Work Phone: [facility] Work Phone: 04-22-2022 09:07-0400 Diastolic blood pressure 78 mm[Hg] Dr. Grant Krause Work Phone: [facility] Work Phone: 04-22-2022 09:07-0400 Heart rate 60 /min Dr. Grant Krause Work Phone: [facility] Work Phone: 04-22-2022 09:07-0400 Respiratory rate 16 /min Dr. Grant Krause Work Phone: [facility] Work Phone: 04-22-2022 09:07-0400 Systolic blood pressure 122 mm[Hg] Dr. Grant Krause Work Phone: [facility] Work Phone: 03-16-2022 13:36-0400 Body height 170.[address] Grant Krause Work Phone: [facility] Work Phone: 03-16-2022 13:36-0400 Body mass index (BMI) [Ratio] 30.6 kg/m2 Dr. Grant Krause Work Phone: [facility] Work Phone: 03-16-2022 13:36-0400 Body weight 88.[address] Grant Krause Work Phone: [facility] Work Phone: 03-16-2022 13:36-0400 Diastolic blood pressure 62 mm[Hg] Dr. Grant Krause Work Phone: [facility] Work Phone: 03-16-2022 13:36-0400 Heart rate 60 /min Dr. Grant Krause Work Phone: [facility] Work Phone: 03-16-2022 13:36-0400 Respiratory rate 16 /min Dr. Grant Krause Work Phone: [facility] Work Phone: 03-16-2022 13:36-0400 Systolic blood pressure 96 mm[Hg] Dr. Grant Krause Work Phone: [facility] Work Phone: 01-29-2022 14:41-0400 Body height 170.[address] Grant Krause Work Phone: [facility] Work Phone: 01-29-2022 14:41-0400 Body mass index (BMI) [Ratio] 31.1 kg/m2 Dr. Grant Krause Work Phone: [facility] Work Phone: 01-29-2022 14:41-0400 Body temperature 98.1 [degF] Dr. Grant Krause Work Phone: [facility] Work Phone: 01-29-2022 14:41-0400 Body weight 90.[address] Grant Krause Work Phone: [facility] Work Phone: 01-29-2022 14:41-0400 Diastolic blood pressure 73 mm[Hg] Dr. Grant Krause Work Phone: [facility] Work Phone: 01-29-2022 14:41-0400 Heart rate 76 /min Dr. Grant Krause Work Phone: [facility] Work Phone: 01-29-2022 14:41-0400 Respiratory rate 15 /min Dr. Grant Krause Work Phone: [facility] Work Phone: 01-29-2022 14:41-0400 SaO2% (BldA) [Mass fraction] 97 % Dr. Grant Krause Work Phone: [facility] Work Phone: 01-29-2022 14:41-0400 Systolic blood pressure 143 mm[Hg] Dr. Grant Krause Work Phone: [facility] Work Phone: 12-08-2021 15:15-0400 Body mass index (BMI) [Ratio] 30.2 kg/m2 Dr. Grant Krause Work Phone: [facility] Work Phone: 12-08-2021 15:15-0400 Body weight 87.[address] Grant Krause Work Phone: [facility] Work Phone: 12-08-2021 15:15-0400 Diastolic blood pressure 58 mm[Hg] Dr. Grant Krause Work Phone: [facility] Work Phone: 12-08-2021 15:15-0400 Heart rate 66 /min Dr. Grant Krause Work Phone: [facility] Work Phone: 12-08-2021 15:15-0400 Respiratory rate 18 /min Dr. Grant Krause Work Phone: [facility] Work Phone: 12-08-2021 15:15-0400 Systolic blood pressure 96 mm[Hg] Dr. Grant Krause Work Phone: [facility] Work Phone: 10-30-2016 15:58-0500 BMI (Body Mass Index) 32.04 kg/m2 Jovita Mckeon RN [facility] Work Phone: 10-30-2016 15:58-0500 BP Diastolic 74 mm[Hg] Jovita Mckeon RN [facility] Work Phone: 10-30-2016 15:58-0500 BP Systolic 110 mm[Hg] Jovita Mckeon RN [facility] Work Phone: 10-30-2016 15:58-0500 BSA (Body Surface Area) 2.04 m2 Jovita Mckeon RN [facility] Work Phone: 10-30-2016 15:58-0500 Height 170.18 cm Jovita Mckeon RN [facility] Work Phone: 10-30-2016 15:58-0500 Pulse (Heart Rate) 72 /min Jovita Mckeon RN [facility] Work Phone: 10-30-2016 15:58-0500 Respiratory Rate 18 /min Jovita Mckeon RN [facility] Work Phone: 10-30-2016 15:58-0500 Weight 92.81 kg Jovita Mckeon RN [facility] Work Phone: Encounters Encounter Date Encounter Type Care Provider Facility Start: 08-02-2025 End: 08-02-2025 ambulatory GRANT KRAUSE Facility:[facility] Start: 07-30-2025 End: 07-30-2025 ambulatory GRANT KRAUSE Facility:[facility] Start: 07-10-2025 ambulatory TERRI AGUIRRE Facility:1 [id number] Start: 06-27-2025 End: 06-27-2025 ambulatory GRANT KRAUSE Facility:[facility] Start: 06-01-2025 End: 06-01-2025 Patient encounter procedure Margarito Opal Work Phone: Podiatry Comment on above: Onychomycosis (Prima ry Dx); Pain in toe of left foot; Pain in toe of right foot; Diabetic polyneuropathy associated with type 2 diabetes mellitus (HCC); Acquired hallux valgus of right foot Start: 06-01-2025 End: 06-01-2025 ambulatory GRANT KRAUSE Facility:[facility] Start: 05-10-2025 End: 05-10-2025 ambulatory GRANT KRAUSE Facility:[facility] Start: 05-10-2025 End: 05-10-2025 Office consultation new/estab patient 60 min Terri Aguirre MD Work Phone: Geriatrics Comment on above: Cognitive impairment , mild, so stated (Primary Dx); Cognitive deficits Start: 05-10-2025 End: 05-10-2025 ambulatory GRANT KRAUSE Facility:[facility] Start: 05-09-2025 End: 05-09-[address] Grant Krause MD Work Phone: -Sleep Lab Start: 05-09-2025 End: 05-09-2025 Patient encounter procedure Tito Evans [employer] -Sleep Lab Work Phone: Start: 05-09-2025 End: 05-09-2025 ambulatory Grant Krause Facility:[facility] Start: 04-23-2025 End: 04-23-2025 Patient encounter procedure Nilda Kim PA-C Work Phone: Orthopaedics Comment on above: Primary osteoarthrit is of left knee (Primary Dx) Start: 04-23-2025 End: 04-23-2025 ambulatory GRANT KRAUSE Facility:[facility] Start: 04-11-2025 End: 04-11-2025 Follow-up encounter Liat Smith APRN.CNP Work Phone: [facility] Start: 04-10-2025 End: 04-10-2025 Office outpatient visit 25 minutes Liat Smith APRN.CNP Work Phone: [facility] Comment on above: Medicare annual well ness visit, subsequent (Primary Dx); Oral dyskinesia; Type 2 diabetes mellitus with stage 3a chronic kidney disease, without long-term current use of insulin (HCC); Cognitive deficits; Essential hypertension; Encounter for screening examination for other mental health and behavioral disorders; Screening for depression Start: 04-10-2025 End: 04-10-2025 ambulatory GRANT KRAUSE Facility:[facility] Start: 04-10-2025 End: 04-10-2025 Patient encounter procedure Liat Smith APRN.BRAKE MACHINE OPERATOR Work Phone: [facility] Start: 04-02-2025 End: 04-03-2025 Refill Grant Krause MD Work Phone: Family Medicine [facility] Comment on above: Refill Request Start: 03-12-2025 End: 03-12-2025 Refill Grant Krause MD Work Phone: Internal Medicine [facility] Comment on above: Refill Request Start: 02-15-2025 End: 02-15-2025 ambulatory GRANT KRAUSE Facility:[facility] Start: 02-05-2025 End: 02-05-2025 Refill Grant Krause MD Work Phone: [facility] Comment on above: Refill Request Start: 01-15-2025 End: 01-15-2025 Patient encounter procedure Nilda Kim PA-C Work Phone: Orthopaedics Comment on above: Primary osteoarthrit is of left knee (Primary Dx) Start: 01-15-2025 End: 01-15-2025 ambulatory GRANT KRAUSE Facility:[facility] Start: 12-04-2024 End: 12-04-2024 Patient encounter procedure Tito Evans APRN.BRAKE MACHINE OPERATOR Work Phone: Neurology Comment on above: ALBAN on CPAP (Primary Dx) Start: 12-04-2024 End: 12-04-2024 ambulatory GRANT KRAUSE Facility:[facility] Start: 11-28-2024 End: 11-28-2024 ambulatory GRANT KRAUSE Facility:[facility] Start: 11-28-2024 End: 11-28-2024 Patient encounter procedure Margarito Joseph Work Phone: Podiatry Comment on above: Onychomycosis (Prima ry Dx); Pain in toe of left foot; Pain in toe of right foot; Diabetic polyneuropathy associated with type 2 diabetes mellitus (HCC) Start: 11-09-2024 End: 11-09-2024 Telephone encounter Margarito Kimblesahara Work Phone: Podiatry Comment on above: Appointment Start: 11-02-2024 End: 11-02-2024 ambulatory GRANT KRAUSE Facility:[facility] Start: 11-02-2024 End: 11-02-2024 Office outpatient visit 25 minutes Grant Krause MD Work Phone: Internal Medicine [facility] Comment on above: ALBAN on CPAP (Primary Dx); Controlled type 2 diabetes mellitus without complication, without long-term current use of insulin ([facility]); BPH with obstruction/lower urinary tract symptoms; Essential hypertension Start: 11-01-2024 End: 11-01-2024 Refill Grant Krause MD Work Phone: [facility] Comment on above: Refill Request Start: 10-24-2024 End: 10-30-2024 Refill Grant Krause MD Work Phone: [facility] Comment on above: Refill Request Refill Request; Medi cation Problem (Patient is out of his inhaler.) Patient Update (CPAP supplies) Start: 10-09-2024 End: 10-09-2024 Office outpatient visit 15 minutes Grant Krause MD Work Phone: [facility] Comment on above: Seborrheic keratosis (Primary Dx); Controlled type 2 diabetes mellitus without complication, without long-term current use of insulin (HCC); Mixed hyperlipidemia; Oral dyskinesia Start: 10-09-2024 End: 10-09-2024 Refill Grnat Krause MD Work Phone: Internal Medicine [place] Comment on above: Refill Request Primary osteoarthrit is of left knee (Primary Dx) Start: 10-06-2024 End: 10-06-2024 ambulatory GRANT KRAUSE Facility:[facility] Start: 09-18-2024 End: 09-18-2024 Refill Grant Krause MD Work Phone: Internal [facility] Comment on above: Refill Request Start: 08-14-2024 End: 08-14-[address] [facility] Work Phone: [facility] Start: 08-14-2024 End: 08-14-2024 Patient encounter procedure Teressa Pansiacasio [facility] Work Phone: [facility] Comment on above: Allied Health Visit (Statin Use Review) Start: 08-03-2024 End: 08-04-2024 Refill Grant Krause MD Work Phone: Internal Medicine [place] Comment on above: Refill Request Start: 07-27-2024 End: 07-27-2024 ambulatory Grant Krause MD Work Phone: Pharm [facility] Start: 07-21-2024 End: 07-21-2024 Patient encounter procedure Tad Stratton 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 Work Phone: [facility] Comment on above: Acute cough (Primary Dx) Start: 07-19-2024 End: 07-19-2024 Office outpatient visit 15 minutes Grant Krause MD Work Phone: Internal Medicine [place] Comment on above: Chest pain, unspecif ied type (Primary Dx); Coronary artery disease involving squaxin coronary artery of squaxin heart without angina pectoris; Type 2 diabetes mellitus with stage 3a chronic kidney disease, without long-term current use of insulin (HCC); Mixed hyperlipidemia Start: 07-11-2024 End: 07-11-2024 ambulatory Grant Krause Facility:[facility] Start: 06-23-2024 End: 06-23-2024 Patient encounter procedure Margarito Joseph Work Phone: Podiatry Comment on above: Onychomycosis (Prima ry Dx); Pain in toe of left foot; Pain in toe of right foot; Diabetic polyneuropathy associated with type 2 diabetes mellitus (HCC); Acquired hallux valgus, unspecified laterality Start: 06-21-2024 End: 06-21-2024 Refill Grant Krause MD Work Phone: Family [facility] Comment on above: Refill Request Start: 06-20-2024 End: 06-20-2024 Refill Grant Krause MD Work Phone: Internal Medicine [place] Comment on above: Refill Request Start: 06-19-2024 End: 06-19-2024 Telephone encounter Grant Krause MD Work Phone: Internal Medicine [place] Comment on above: Results Start: 06-16-2024 End: 06-16-2024 Office outpatient visit 25 minutes Grant Krause MD Work Phone: Internal Medicine [place] Comment on above: Fall, initial encoun ter (Primary Dx); Mixed hyperlipidemia; Encounter for immunization; Type 2 diabetes mellitus with stage 3a chronic kidney disease, without long-term current use of insulin (HCC); Coronary artery disease involving squaxin coronary artery of squaxin heart without angina pectoris; Oral dyskinesia Start: 06-06-2024 End: 06-06-2024 ambulatory Grant Krause Facility:[facility] Start: 06-06-2024 End: 06-06-2024 ambulatory Grant Krause Facility:[facility] Start: 06-05-2024 End: 06-05-2024 Patient encounter procedure Nilda Kim PA-C Work Phone: Orthopaedics Comment on above: Primary osteoarthrit is of left knee (Primary Dx) Start: 05-05-2024 Refill Grant allen MD Work Phone: Internal Medicine [place] Comment on above: Refill Request Start: 04-27-2024 Refill Grant allen MD Work Phone: [facility] Comment on above: Refill Request Start: 04-18-2024 Refill Grant allen MD Work Phone: [facility] Comment on above: Refill Request Start: 04-12-2024 Refill Grant allen MD Work Phone: Internal [facility] [place] Comment on above: Refill Request Start: 04-10-2024 Refill Grant allen MD Work Phone: Internal Medicine [facility] Comment on above: Refill Request Start: 03-23-2024 End: 03-23-2024 Patient encounter procedure Margarito Kimblesahara Work Phone: Podiatry Comment on above: Onychomycosis (Prima ry Dx); Pain in toe of left foot; Pain in toe of right foot; Diabetic polyneuropathy associated with type 2 diabetes mellitus (HCC); Acquired hallux valgus, unspecified laterality; Hallux valgus of left foot Start: 02-25-2024 Refill Grant allen MD Work Phone: Internal [facility] Comment on above: Refill Request Start: 02-22-2024 End: 02-22-2024 Patient encounter procedure Liat Smith APRN.BRAKE MACHINE OPERATOR Work Phone: Internal [facility] Comment on above: Patient request for diagnostic testing (Primary Dx) Start: 02-22-2024 End: 02-22-2024 Patient requested procedure Liat Smith APRN.BRAKE MACHINE OPERATOR Work Phone: [facility] Work Phone: Start: 02-14-2024 End: 02-14-2024 Patient encounter procedure Nilda Kim PA-C Work Phone: Orthopaedics Comment on above: Primary osteoarthrit is of left knee (Primary Dx) Start: 02-09-2024 Telephone encounter Grant connell MD Work Phone: Internal [facility] Comment on above: Results Start: 02-07-2024 End: 02-07-2024 Patient encounter procedure Liathiro Smith APRN.CNP Work Phone: [facility] Comment on above: Medicare annual well ness visit, subsequent (Primary Dx); Renal insufficiency Start: 01-14-2024 Refill Grant allen MD Work Phone: Internal Medicine [facility] Comment on above: Refill Request Start: 01-13-2024 Non-patient / Non-visit Dr. Rahda Krause Work Phone: [facility] Start: 01-13-2024 End: 01-13-[address] Grant Krause Work Phone: [facility] Work Phone: Start: 01-13-2024 End: 01-13-[address] Grant Krause Work Phone: [facility]-Cardiovascula r Services Work Phone: Start: 01-12-2024 Refill Grant allen MD Work Phone: Internal Medicine [facility] Comment on above: Refill Request Start: 12-14-2023 End: 12-14-[address] Grant Krause Work Phone: [facility] Work Phone: Start: 12-14-2023 End: 12-14-[address] Grant Krause Work Phone: [facility]-Laboratory Work Phone: Start: 12-07-2023 Telephone encounter Grant connell MD Work Phone: Internal Medicine [facility] Comment on above: Patient Update Start: 12-06-2023 End: 12-06-[address] Grant Krause Work Phone: [facility] Work Phone: Start: 12-06-2023 End: 12-06-[address] Grant Krause Work Phone: [facility]-Laboratory Work Phone: Start: 12-06-2023 End: 12-06-[address] Grant Krause Work Phone: [facility] Work Phone: Start: 11-23-2023 Refill Grant allen MD Work Phone: Internal [facility] Comment on above: Refill Request Start: 11-08-2023 End: 11-08-2023 Patient encounter procedure Nilda Kim PA-C Work Phone: Orthopaedics Comment on above: Primary osteoarthrit is of left knee (Primary Dx) Start: 08-26-2023 Refill Grant allen MD Work Phone: Internal [facility] Comment on above: Refill Request Start: 08-25-2023 End: 08-25-2023 Subsequent hospital visit by physician Madelin Blanc MD Work Phone: Ambulatory Surgery Comment on above: History of colonic p olyps [Z86.010] Start: 08-04-2023 End: 08-04-2023 Patient encounter procedure Madelin Blanc MD Work Phone: General Surgery Comment on above: History of colonic p olyps (Primary Dx) Start: 08-04-2023 End: 08-01-2024 Telephone encounter Madelin Blanc MD Work Phone: General Surgery Comment on above: 08/25/2023 [facility] Start: 07-26-2023 End: 07-26-2023 Patient encounter procedure Margarito Joseph Work Phone: Podiatry Comment on above: Onychomycosis (Prima ry Dx); Pain in toe of left foot; Pain in toe of right foot; Diabetic polyneuropathy associated with diabetes mellitus due to underlying condition (HCC); Acquired hallux valgus, unspecified laterality; Hallux valgus of left foot Refill Request Start: 07-08-2023 Refill Grant allen MD Work Phone: Family [facility] Comment on above: Refill Request Start: 06-09-2023 End: 06-09-2023 Emergency department patient visit Dr. Grant Krause Work Phone: [facility]-Emergency Department Work Phone: Start: 05-28-2023 Refill Grant allen MD Work Phone: Internal [facility] Comment on above: Refill Request Start: 05-14-2023 End: 05-14-[address] Grant Krause Work Phone: [facility] Work Phone: Start: 05-10-2023 Refill Grant allen MD Work Phone: Internal [facility] Comment on above: Refill Request Start: 04-26-2023 End: 04-26-2023 Patient encounter procedure Nilda CA-C Work Phone: Orthopaedics Comment on above: Primary osteoarthrit is of left knee (Primary Dx) Start: 04-26-2023 End: 04-26-2023 Subsequent hospital visit by physician Nakul [facility] Work Phone: Radiology Comment on above: Left knee pain, unsp ecified chronicity [M25.562] Start: 04-22-2023 End: 04-22-2023 Patient encounter procedure Margarito Joseph Work Phone: Podiatry Comment on above: Diabetic mononeuropa thy associated with diabetes mellitus due to underlying condition (HCC) (Primary Dx); Acquired hallux valgus, unspecified laterality; Onychomycosis; Pain in toe of left foot; Pain in toe of right foot Start: 04-13-2023 Orders Only Nilda bosch PA-C Work Phone: Orthopaedics Comment on above: Left knee pain, unsp ecified chronicity (Primary Dx) Start: 04-07-2023 Telephone encounter Grant connell MD Work Phone: Internal [facility] Comment on above: Results Start: 04-02-2023 End: 04-02-2023 Patient encounter procedure Grant Krause MD Work Phone: Internal Medicine [place] Comment on above: Type 2 diabetes octaviano itus with stage 3a chronic kidney disease, without long-term current use of insulin (HCC) (Primary Dx); Essential hypertension; Coronary artery disease involving squaxin coronary artery of squaxin heart without angina pectoris; Mixed hyperlipidemia; Obesity, Class II, BMI 35-39.9; Bunion Start: 03-23-2023 Refill Grant aleln MD Work Phone: Internal Medicine [place] Comment on above: Refill Request Start: 01-19-2023 Refill Grant allen MD Work Phone: Internal [facility] Comment on above: Refill Request Start: 2023 End: 2023 Patient encounter procedure Nilda Kim PA-C Work Phone: Orthopaedics Comment on above: Primary osteoarthrit is of left knee (Primary Dx) Start: 12-28-2022 Telephone encounter Grant connell MD Work Phone: Internal [facility] Comment on above: Medication Problem Start: 12-18-2022 Refill Grant allen MD Work Phone: Internal [facility] Comment on above: Refill Request Start: 12-16-2022 End: 12-16-2022 Patient encounter procedure Liat Emery APRN.BRAKE MACHINE OPERATOR Work Phone: Internal Medicine [place] Comment on above: Medicare annual well ness visit, initial (Primary Dx); Oral dyskinesia Start: 11-24-2022 Refill Grant allen MD Work Phone: Internal Medicine [place] Comment on above: Refill Request Start: 11-16-2022 ambulatory [facility] Comment on above: Population Health Na vigation Outreach ([employer] care gaps) Start: 11-13-2022 End: 11-13-[address] Grant Krause Work Phone: [facility] Work Phone: Start: 11-13-2022 End: 11-13-[address] rGant Krause Work Phone: [facility]-Laboratory Start: 11-13-2022 End: 11-13-[address] Grant Krause Work Phone: [facility] Start: 11-02-2022 Refill Grant allen MD Work Phone: [facility] Comment on above: Refill Request Start: 10-30-2022 Non-patient / Non-visit Dr. Radha Krause Work Phone: [facility] Start: 09-30-2022 Refill Grant allen MD Work Phone: Internal [facility] Start: 09-25-2022 Refill Grant allen MD Work Phone: Internal [facility] Comment on above: Refill Request; Refi ll Request Start: 09-23-2022 End: 09-23-2022 Subsequent hospital visit by physician Madelin Blanc MD Work Phone: Ambulatory Surgery Comment on above: History of colonic p olyps [Z86.010] Start: 09-16-2022 Refill Grant allen MD Work Phone: Internal [facility] Comment on above: Refill Request Start: 09-01-2022 Refill Grant allen MD Work Phone: Internal Medicine [facility] Comment on above: Refill Request Start: 08-14-2022 Telephone encounter Madelin Zapata MD Work Phone: General Surgery Comment on above: Patient Question (Ca rdiac clearance for colonoscopy) Start: 08-03-2022 Telephone encounter Madelin Zapata MD Work Phone: General Surgery Comment on above: 09/23/2022 cololn as c Start: 07-24-2022 Refill Liat Older [employer]IGH [employer]CHOOL MATH TUTOR .BRAKE MACHINE OPERATOR Work Phone: Internal [facility] Comment on above: Refill Request Start: 07-10-2022 Refill Grant allen MD Work Phone: Internal [facility] Comment on above: Refill Request Start: 06-29-2022 Refill Grant allen MD Work Phone: Internal [facility] Comment on above: Refill Request Start: 05-28-2022 End: 05-28-[address] Grant Krause Work Phone: [facility] Work Phone: Start: 05-28-2022 End: 05-28-[address] Grant Krause Work Phone: [facility]-Laboratory Start: 05-26-2022 End: 05-26-2022 Admission to same day surgery center Dr. Grant Krause Work Phone: [facility]-Vice President Of Software Development/Special Procedures Start: 05-25-2022 Non-patient / Non-visit Dr. Radha Krause Work Phone: [facility] Start: 05-11-2022 End: 05-11-2022 Patient encounter procedure Grant Krause MD Work Phone: [facility] Comment on above: Oral dyskinesia (Danita peter Dx); Coronary artery disease involving squaxin coronary artery of squaxin heart without angina pectoris; Stented coronary artery; Primary osteoarthritis of left knee Start: 05-01-2022 ambulatory Grant allen MD Work Phone: Internal [facility] Comment on above: Tremor Start: 04-27-2022 Telephone encounter Grant connell MD Work Phone: Internal [facility] Comment on above: Covid19 Concern (shayy t + ) Start: 04-25-2022 End: 04-26-2022 Emergency department patient visit Dr. Grant Krause Work Phone: [facility]-Emergency Department Start: 04-24-2022 Refill Grant allen MD Work Phone: [facility] Comment on above: Refill Request Start: 04-22-2022 End: 04-22-[address] Grant Krause Work Phone: [facility] Start: 04-14-2022 Non-patient / Non-visit Dr. Radha Krause Work Phone: [facility] Start: 04-14-2022 End: 04-14-[address] Grant Krause Work Phone: [facility]-Cardiovascula r Services Start: 04-06-2022 Refill Grant allen MD Work Phone: [facility] Comment on above: Refill Request Start: 04-01-2022 Refill Grant allen MD Work Phone: [facility] Comment on above: Refill Request Start: 03-16-2022 End: 03-16-[address] Grant Krause Work Phone: [facility] Start: 02-27-2022 Refill Grant allen MD Work Phone: [facility] Comment on above: Refill Request Start: 02-17-2022 Refill Grant allen MD Work Phone: [facility] Comment on above: Refill Request Start: 02-12-2022 End: 02-12-2022 Subsequent hospital visit by physician [facility]r [facility] Work Phone: Radiology Comment on above: Canceled (CC cx: Err or or Template Change) Bronchitis with bron chospasm [J20.9] Start: 02-09-2022 Refill Grant allen MD Work Phone: Internal [facility] Comment on above: Refill Request Start: 02-06-2022 Refill Liat Emery APRN, .CNP Work Phone: Internal [facility] Comment on above: Refill Request Start: 01-29-2022 End: 01-29-2022 Emergency department patient visit Dr. Grant Krause Work Phone: [facility]Emergency Department Start: 01-26-2022 End: 01-26-2022 Patient encounter procedure Nilda Kim PA-C Work Phone: Orthopaedics Comment on above: Chronic pain of left knee (Primary Dx); Primary osteoarthritis of left knee Start: 01-12-2022 Refill Grant allen MD Work Phone: Internal [facility] Comment on above: Refill Request Start: 12-29-2021 Refill Grant allen MD Work Phone: [facility] Comment on above: Refill Request Start: 12-24-2021 ambulatory Wendy Narvaez MA [facility] Comment on above: Population Health Na vigation Outreach ([employer] Gaps) Start: 12-08-2021 End: 12-08-[address] Grant Krause Work Phone: [facility] Start: 12-04-2021 Non-patient / Non-visit Dr. Radha Krause Work Phone: [facility] Start: 11-28-2021 End: 11-28-2021 Subsequent hospital visit by physician Xr [facility] Work Phone: Radiology Comment on above: Chronic pain of left knee [M25.562, G89.29] Procedures Date Procedure Procedure Detail Performing Clinician Start: 04-23-2025 Arthrocentesis aspir &/inj major jt/bursa w/o us Nilda Kim PA-C Work Phone: Start: 04-10-2025 Adult depression scr eening sobeida Smith APRN.BRAKE MACHINE OPERATOR Work Phone: Start: 01-15-2025 Arthrocentesis aspir &/inj major jt/bursa w/o us Nilda Vetovitz PA-C Work Phone: Start: 10-09-2024 Arthrocentesis aspir &/inj major jt/bursa w/o us Nilda Vetovitz PA-C Work Phone: Start: 06-05-2024 Arthrocentesis aspir &/inj major jt/bursa w/o us Nilda Vetovitz PA-C Work Phone: Start: 02-14-2024 Arthrocentesis aspir &/inj major jt/bursa w/o us Nilda Vetovitz PA-C Work Phone: Start: 02-07-2024 Adult depression scr eening assessment Grant Krause MD Work Phone: Start: 11-08-2023 Arthrocentesis aspir &/inj major jt/bursa w/o us Nilda Vetovitz PA-C Work Phone: Start: 08-25-2023 Colonoscopy flx dx w /collj spec when pfrmd Madelin Blanc MD Work Phone: Start: 08-25-2023 Colonoscopy Madelin Blanc MD Work Phone: Start: 06-09-2023 SARS-CoV-2 & FLU Ant igen (Rapid) Dr. Grant Krause Work Phone: Start: 04-26-2023 Arthrocentesis aspir &/inj major jt/bursa w/o us Nilda Vetovitz PA-C Work Phone: Start: 04-26-2023 Radiologic exam knee complete 4/more views Nilda Vetovitz PA-C Work Phone: Start: 2023 Arthrocentesis aspir &/inj major jt/bursa w/o us Nilda Vetovitz PA-C Work Phone: Start: 09-23-2022 Level iv surg pathol ogy gross&microscopic exam Madelin Blanc MD Work Phone: Start: 09-23-2022 Colonoscopy flx dx w /collj spec when pfrmd Madelin Blanc MD Work Phone: Start: 09-23-2022 Colonoscopy Grant Crain MD Work Phone: Start: 04-22-2022 Plain chest X-ray Dr. Adriana Krause Work Phone: Start: 04-14-2022 Radionuclide imaging of perfusion of myocardium under exercise stress Dr. Grant Krause Work Phone: Start: 03-26-2022 Adult depression scr eening assessment Grant Krause MD Work Phone: Start: 02-12-2022 Radiologic exam ches t 2 views Grant Krause MD Work Phone: Start: 11-28-2021 Radiologic exam knee complete 4/more views Amanda Yap APRN.CNP Work Phone: Start: 01-03-2021 Adult depression scr eening assessment Wendy Narvaez MA Start: 12-16-2016 Colonoscopy Wendy Narvaez MA Start: 10-30-2016 End: 10-30-2016 SUPERVISOR INTER[employer]ATIONS Rosana Grace PA-C Work Phone: Start: 10-30-2016 End: 10-30-2016 Follow Up Appt 6 months Rosana bone PA-C Work Phone: Viral antigen assay Dr. Mary Krause Work Phone: Plan of Treatment Date Care Activity Detail Author Start: 08-25-2028 Screening for malign ant neoplasm of colon [facility] Start: 09-23-2027 Colonoscopy COLONOSCOPY [facility] Start: 09-23-2027 COLORECTAL CANCER SCREENING COLORECTAL CANCER SCREENING [facility] Start: 04-10-2026 Annual PCP Team Internet Retailer saumya Disease Visit Annual PCP Team Chronic Disease Visit [facility] Start: 04-10-2026 Anxiety Screening Anxiety Screening [facility] Start: 04-10-2026 Creatinine measurement Serum Creatin ine [facility] Start: 04-10-2026 Depression Screening Depression Scre ening [facility] Start: 04-10-2026 Urine microalbumin profile DTaP,Tdap,Td Vaccine (2 - Td or Tdap) [facility] Comment on above: Postponed from 07/28 (Declined at this time) Start: 01-03-2026 PROSTATE CANCER SCREENING DISCUSSION PROSTATE CANCER SCREENING DISCUSSION [facility] Start: 12-26-2025 Glaucoma screening Dilated Retinal E xam [facility] Start: 12-04-2025 BP Controlled (<130/80) BP Controlle d (<130/80) [facility] Start: 11-28-2025 Diabetic foot examination Diabetic Foot Exam [facility] Start: 11-02-2025 Annual PCP Team Internet Retailer saumya Disease Visit Annual PCP Team Chronic Disease Visit [facility] Start: 11-02-2025 BP Controlled (<130/80) BP Controlle d (<130/80) [facility] Start: 10-11-2025 End: 10-11-2025 Patient encounter procedure 10/11/2025 3:00 PM EST Office Visit Internal Medicine [facility] [address] [place] [address] Grant Krause MD [address] [place] [address] follow up 6 months Internal Medicine [facility] Comment on above: follow up 6 months Start: 10-11-2025 Hemoglobin A1c measurement HbA1C [facility] Start: 10-09-2025 Annual PCP Team Cynthia saumya Disease Visit Annual PCP Team Chronic Disease Visit [facility] Start: 10-09-2025 BP Controlled (<130/80) BP Controlle d (<130/80) [facility] Start: 10-09-2025 Creatinine measurement Serum Creatin ine [facility] Start: 10-09-2025 Hepatitis B screening Urine Al bumin:Creatinine Ratio [facility] Start: 10-09-2025 Hepatitis B surface antibody level LDL Cholesterol [facility] Start: 10-01-2025 End: 10-01-2025 Patient encounter procedure 10/01/2025 1:00 PM EST Office Visit Podiatry [address] [place], [place] [id number] Margarito Joseph [address] [place] [address] 4 month follow up nail care Podiatry Comment on above: 4 month follow up na il care Start: 07-30-2025 End: 07-30-2025 Patient encounter procedure 07/30/2025 11:45 AM EST Office Visit Orthopaedics [address] [place] [address] Nilda Kim PA-C [address] [place] [address] L knee injection 91 day follow up Orthopaedics Comment on above: L knee injection 91 day follow up Start: 07-21-2025 BP Controlled (<130/80) BP Controlle d (<130/80) [facility] Start: 07-19-2025 Annual PCP Team Internet Retailer saumya Disease Visit Annual PCP Team Chronic Disease Visit [facility] Start: 07-19-2025 BP Controlled (<130/80) BP Controlle d (<130/80) [facility] Start: 07-05-2025 End: 07-05-2025 Patient encounter procedure 07/05/2025 2:30 PM EDT Office Visit Neurology [address] [place] [address] Tito Evans APRN.BRAKE MACHINE OPERATOR [address] [place] [address] follow up after sleep test Neurology Comment on above: follow up after slee p test Start: 06-21-2025 End: 06-21-2025 Patient encounter procedure 06/21/2025 3:30 PM EDT Office Visit Geriatrics [address] [place], [place] [id number] Terri Aguirre MD [address] [place], [place] [address] MRI Follow up Geriatrics Comment on above: MRI Follow up Start: 06-16-2025 Annual PCP Team Internet Retailer saumya Disease Visit Annual PCP Team Chronic Disease Visit [facility] Start: 06-16-2025 Complete blood count Hemoglobin/Lonnie tocrit [facility] Start: 06-16-2025 Covid-19 Vaccine ( season) Covid-19 Vaccine () [facility] Comment on above: Postponed from 05/28 (Declined at this time) Start: 06-16-2025 Covid-19 Vaccine () Covid-19 Vaccine () [facility] Comment on above: Postponed from 05/28 (Declined at this time) Start: 06-16-2025 Creatinine measurement Serum Creatin ine [facility] Start: 06-08-2025 End: 06-08-2025 Patient encounter procedure 06/08/2025 2:30 PM EDT Appointment RADIO [facility] [address] [place] [address] Cognitive impairment, mild, so stated [G31.84] [facility] [place] Comment on above: Cognitive impairment , mild, so stated [G31.84] Start: 06-01-2025 End: 06-01-2025 Patient encounter procedure 06/01/2025 2:20 PM EDT Office Visit Podiatry [address] [place] [place] [address] Margarito Joseph [address] [facility] [address] [place], [place] [id number] f/u Podiatry Comment on above: f/u Start: 05-28-2025 Influenza vaccination Influenza Vacc ine (#1) [facility] Start: 05-10-2025 End: 08-09-2025 Cobalamin (Vitamin B12) [Mass/volume] in Serum or Plasma [facility] Comment on above: Expected: 05/10/2025 , Expires: 08/09/2025 Start: 05-10-2025 End: 08-09-2025 Thyrotropin [Units/volume] in Serum or Plasma [facility] Comment on above: Expected: 05/10/2025 , Expires: 08/09/2025 Start: 05-10-2025 End: 05-10-2025 Patient encounter procedure 05/10/2025 1:30 PM EDT Office Visit Geriatrics [address] [place] [address] Terri Aguirre MD [address] [place] [address] Cognitive deficits [R41.89] Geriatrics Comment on above: Cognitive deficits [ R41.89] Start: 04-23-2025 End: 04-23-2025 Patient encounter procedure 04/23/2025 2:30 PM EDT Office Visit Orthopaedics [address] [place] [address] Nilda Kim PA-C [address] [place] [address] L knee 91 day follow up injection Orthopaedics Comment on above: L knee 91 day follow up injection Start: 04-10-2025 End: 07-10-2025 Hemoglobin A1c in Blood [facility] Work Phone: Comment on above: Expected: 04/10/2025 , Expires: 07/10/2025 Start: 04-10-2025 End: 04-10-2025 Patient encounter procedure 04/10/2025 1:40 PM EDT Office Visit Internal Medicine [facility] [address] [place] [address] Liat Smith, HIGH 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 [address] [place] [address] rescheduled for 02-06 Internal Medicine [facility] Comment on above: rescheduled for 01-25 3 Start: 04-08-2025 Hemoglobin A1c measurement HbA1C [facility] Start: 04-06-2025 End: 04-06-2025 Patient encounter procedure Podiatry Comment on above: 4 month follow up na sly care Start: 03-23-2025 Diabetic foot examination Diabetic Foot Exam [facility] Start: 02-21-2025 Annual PCP Team Internet Retailer saumya Disease Visit Annual PCP Team Chronic Disease Visit [facility] Start: 02-21-2025 BP Controlled (<130/80) BP Controlle d (<130/80) [facility] Start: 02-15-2025 End: 02-15-2025 Patient encounter procedure 02/15/2025 2:30 PM EDT Office Visit Neurology [address] [facility] [place] [address] Tito Evans APRN.BRAKE MACHINE OPERATOR [address] [place] [address] 2 month follow up Neurology Comment on above: 2 month follow up Start: 02-06-2025 End: 02-06-2025 Patient encounter procedure 02/06/2025 2:20 PM EDT Office Visit Internal Medicine [facility] [address] [facility] [place], [place] [phone] Liat Smith APRN.BRAKE MACHINE OPERATOR [address] [facility] [place] [address] Annual Medicare Wellness w/4 month follow-up Internal Medicine [facility] Comment on above: Annual Medicare Well ness w/4 month follow-up Start: 02-06-2025 Annual PCP Team Internet Retailer saumya Disease Visit Annual PCP Team Chronic Disease Visit [facility] Start: 02-06-2025 Anxiety Screening Anxiety Screening [facility] Start: 02-06-2025 BP Controlled (<130/80) BP Controlle d (<130/80) [facility] Start: 02-06-2025 Covid-19 Vaccine () Covid-19 Vaccine () [facility] Comment on above: Postponed from 05/28 (Declined at this time) Start: 02-06-2025 Creatinine measurement Serum Creatin ine [facility] Start: 02-06-2025 Depression Screening Depression Scre ening [facility] Start: 02-06-2025 Urine microalbumin profile DTaP,Tdap,Td Vaccine (2 - Td or Tdap) [facility] Comment on above: Postponed from 07/28 (Declined at this time) Start: 01-15-2025 End: 01-15-2025 Patient encounter procedure 01/15/2025 1:30 PM EDT Office Visit Orthopaedics [address] [place], [place] [phone] Nilda Kim PA-C [address] [place] [address] L knee 91 day follow up injection Orthopaedics Comment on above: L knee 91 day follow up injection Start: 12-14-2024 Hemoglobin A1c measurement HbA1C [facility] Start: 12-04-2024 End: 12-04-2024 Patient encounter procedure Neurology Comment on above: consult for [employer] consult fo r [employer] Start: 11-28-2024 End: 11-28-2024 Patient encounter procedure 11/28/2024 1:45 PM EST Office Visit Podiatry [address] [place] [address] Margarito Joseph [address] [address] 3 month follow up nail care Podiatry Comment on above: 3 month follow up na il care Start: 11-09-2024 End: 11-09-2024 Patient encounter procedure 11/09/2024 1:15 PM EST Office Visit Podiatry [address] [place] [address] Margarito Joseph [address] [address] 3 month follow up nail care Podiatry Comment on above: 3 month follow up na il care Start: 11-02-2024 End: 11-02-2024 Patient encounter procedure 11/02/2024 2:00 PM EST Office Visit Internal Medicine [place] [address] [place] [address] Grant Krause MD [address] [place], [place] [id number] discuss CPAP issues Internal Medicine [facility] Comment on above: discuss CPAP issues Start: 11-01-2024 End: 11-01-2024 Patient encounter procedure 11/01/2024 2:00 PM EST Office Visit [facility] Medicine [facility] [address] [facility] [place] [address] Grant Krause MD [address] [facility] [place] [address] discuss CPAP issues Internal Medicine [place] Comment on above: discuss CPAP issues Start: 10-19-2024 Glaucoma screening Dilated Retinal E xam [facility] Start: 10-09-2024 End: 10-09-2024 Patient encounter procedure Internal Medicine [facility] Comment on above: follow up L knee 91 day follow up injection Start: 10-08-2024 Annual PCP Team Internet Retailer saumya Disease Visit Annual PCP Team Chronic Disease Visit [facility] Start: 10-08-2024 BP Controlled (<130/80) BP Controlle d (<130/80) [facility] Start: 10-08-2024 Creatinine measurement Serum Creatin ine [facility] Start: 10-08-2024 Hepatitis B screening Urine Al bumin:Creatinine Ratio [facility] Start: 10-08-2024 Hepatitis B surface antibody level LDL Cholesterol [facility] Start: 10-06-2024 End: 10-06-2024 Patient encounter procedure Podiatry Comment on above: 3 month follow up na il care Start: 09-28-2024 End: 12-28-2024 Basic metabolic 2000 panel - Serum or Plasma BASIC METABOLIC PANEL Lab Routine Type 2 diabetes mellitus with stage 3a chronic kidney disease, without long-term current use of insulin (HCC) Expected: 09/28/2024, Expires: 12/28/2024 [facility] Work Phone: Comment on above: Expected: 09/28/2024 , Expires: 12/28/2024 Start: 09-28-2024 End: 12-28-2024 Hemoglobin A1c in Blood HEMOGLOBIN A1C Lab Routine Type 2 diabetes mellitus with stage 3a chronic kidney disease, without long-term current use of insulin (HCC) Expected: 09/28/2024, Expires: 12/28/2024 [facility] Comment on above: Expected: 09/28/2024 , Expires: 12/28/2024 Start: 09-28-2024 End: 12-28-2024 Lipid 1996 panel - Serum or Plasma LIPID PANEL BASIC Lab Routine Mixed hyperlipidemia Expected: 09/28/2024, Expires: 12/28/2024 [facility] Comment on above: Expected: 09/28/2024 , Expires: 12/28/2024 Start: 09-28-2024 End: 12-28-2024 Microalbumin/Creatinine [Mass Ratio] in Urine ALBUMIN/CREATININE RATIO, URINE Lab Routine Type 2 diabetes mellitus with stage 3a chronic kidney disease, without long-term current use of insulin (HCC) Expected: 09/28/2024, Expires: 12/28/2024 [facility] Comment on above: Expected: 09/28/2024 , Expires: 12/28/2024 Start: 09-27-2024 Advance Directive Discussion Advance Directive Discussion [facility] Start: 09-27-2024 Medicare Advantage Annual Wellness Visit Medicare Advantage Annual Wellness Visit [facility] Start: 09-11-2024 End: 09-11-2024 Patient encounter procedure 09/11/2024 2:30 PM EST Office Visit Orthopaedics [address] [place], [place] [address] Nilda Kim PA-C [address] [place] [address] L knee 91 day follow up injection Orthopaedics Comment on above: L knee 91 day follow up injection Start: 08-25-2024 Colonoscopy Colonoscopy [facility] Start: 08-25-2024 Colorectal Cancer Screening Colorectal Cancer Screening [facility] Start: 06-23-2024 End: 06-23-2024 Patient encounter procedure 06/23/2024 3:20 PM EDT Office Visit Podiatry [address] [place] [address] Margarito Joseph [address] [place] [address] 3 month follow up nail care Podiatry Comment on above: 3 month follow up na il care Start: 06-16-2024 End: 09-15-2024 Basic metabolic 2000 panel - Serum or Plasma [facility] Comment on above: Expected: 06/16/2024 , Expires: 09/15/2024 Start: 06-16-2024 End: 09-15-2024 CBC panel - Blood by Automated count [facility] Work Phone: Comment on above: Expected: 06/16/2024 , Expires: 09/15/2024 Start: 06-16-2024 End: 09-15-2024 Hemoglobin A1c in Blood [facility] Comment on above: Expected: 06/16/2024 , Expires: 09/15/2024 Start: 06-16-2024 End: 06-16-2024 Patient encounter procedure Internal Medicine [facility] Comment on above: 4 month follow up Start: 06-05-2024 End: 06-05-2024 Patient encounter procedure 06/05/2024 2:00 PM EDT Office Visit Orthopaedics [address] [place] [address] Nilda Kim PA-C [address] [place] [address] 91 days injection L knee Orthopaedics Comment on above: 91 days injection L knee Start: 05-28-2024 Covid-19 Vaccine ( season) Covid-19 Vaccine ( season) [facility] Start: 05-28-2024 Influenza vaccination Influenza Vacc ine (#1) [facility] Start: 04-07-2024 Hemoglobin A1c measurement HbA1C [facility] Start: 04-02-2024 3 comp foot exam completed DIABETIC FOOT EXAM [facility] Start: 04-02-2024 ANNUAL PCP TEAM ADVISOR CONSULTANT SAUMYA DISEASE VISIT ANNUAL PCP TEAM CHRONIC DISEASE VISIT [facility] Start: 04-02-2024 BP CONTROLLED (<130/80) BP CONTROLLE D (<130/80) [facility] Start: 04-02-2024 Complete blood count Hemoglobin/Lonnie tocrit [facility] Start: 04-02-2024 Diabetic foot examination Diabetic Foot Exam [facility] Start: 04-02-2024 HEMOGLOBIN/HEMATOCRIT HEMOGLOBIN/HEM ATOCRIT [facility] Start: 04-02-2024 Hepatitis B surface antibody level LDL CHOLESTEROL [facility] Start: 04-02-2024 SERUM CREATININE SERUM CREATININE Cl [facility] Start: 03-24-2024 End: 03-24-2024 Patient encounter procedure 03/24/2024 1:40 PM EDT Office Visit Podiatry [address] [place] [address] Margarito Joseph [address] [place] [address] RESCHEDULED FROM 03/03 4 month follow up nail care Podiatry Comment on above: RESCHEDULED FROM 03/03 4 month follow up nail care Start: 03-23-2024 End: 03-23-2024 Patient encounter procedure 03/23/2024 2:00 PM EDT Office Visit Podiatry [address] [place] [address] Margarito Joseph [address] [place] [address] RESCHEDULED FROM 03/03 4 month follow up nail care Podiatry Comment on above: RESCHEDULED FROM 03/03 4 month follow up nail care Start: 02-22-2024 End: 02-22-2024 Patient encounter procedure 02/22/2024 1:00 PM EDT Office Visit Internal Medicine [place] [address] [facility] [address] Lita Smith, HIGH 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 [address] [place] [address] Follow up for multi medication [facility] Medicine [facility] Comment on above: Follow up for multi medication Start: 02-14-2024 End: 02-14-2024 Patient encounter procedure 02/14/2024 1:30 PM EDT Office Visit Orthopaedics [address] [place] [address] Nilda Kim PA-C [address] [place] [address] 91 days injection L knee Orthopaedics Comment on above: 91 days injection L knee Start: 02-07-2024 End: 05-08-2024 Basic metabolic 2000 panel - Serum or Plasma [facility] Work Phone: Comment on above: Expected: 02/07/2024 , Expires: 05/08/2024 Start: 12-17-2023 ANNUAL PCP TEAM ADVISOR CONSULTANT SAUMYA DISEASE VISIT ANNUAL PCP TEAM CHRONIC DISEASE VISIT [facility] Start: 12-17-2023 BP CONTROLLED (<130/80) BP CONTROLLE D (<130/80) [facility] Start: 12-17-2023 Urine microalbumin profile [facility] Comment on above: Postponed from 07/28 (Declined at this time) Start: 10-03-2023 Hemoglobin A1c/Hemoglobin.total in Blood HBA1C [facility] Start: 09-27-2023 Advance Directive Discussion Advance Directive Discussion [facility] Start: 09-27-2023 Behavioral Health Screening Behavioral Health Screening [facility] Start: 09-27-2023 Depression Assessment Depression Ass essment [facility] Start: 09-25-2023 ANNUAL PCP TEAM ADVISOR CONSULTANT SAUMYA DISEASE VISIT ANNUAL PCP TEAM CHRONIC DISEASE VISIT [facility] Start: 09-23-2023 Colonoscopy COLONOSCOPY [facility] Start: 09-23-2023 COLORECTAL CANCER SCREENING COLORECTAL CANCER SCREENING [facility] Start: 09-22-2023 Hepatitis B screening URINE AL BUMIN:CREATININE RATIO [facility] Start: 09-22-2023 SERUM CREATININE SERUM CREATININE Cl [facility] Start: 09-14-2023 Hepatitis C antibody , confirmatory test DILATED RETINAL EXAM [facility] Start: 08-05-2023 BP CONTROLLED (<130/80) BP CONTROLLE D (<130/80) [facility] Start: 06-09-2023 [facility] Start: 05-28-2023 Covid-19 Vaccine ( season) Covid-19 Vaccine ( season) [facility] Start: 05-28-2023 Influenza vaccination C [facility] Start: 05-11-2023 ANNUAL PCP TEAM ADVISOR CONSULTANT SAUMYA DISEASE VISIT ANNUAL PCP TEAM CHRONIC DISEASE VISIT [facility] Start: 04-02-2023 End: 06-02-2023 Comprehensive metabolic 2000 panel - Serum or Plasma [facility] Work Phone: Comment on above: Expected: 04/02/2023 , Expires: 06/02/2023 Start: 04-02-2023 End: 06-02-2023 Lipid 1996 panel - Serum or Plasma [facility] Work Phone: Comment on above: Expected: 04/02/2023 , Expires: 06/02/2023 Start: 03-26-2023 Adult depression screening assessment DEPRESSION SCREENING [facility] Start: 03-26-2023 ANNUAL PCP TEAM ADVISOR CONSULTANT SAUMYA DISEASE VISIT ANNUAL PCP TEAM CHRONIC DISEASE VISIT [facility] Start: 03-26-2023 BP CONTROLLED (<130/80) BP CONTROLLE D (<130/80) [facility] Start: 03-23-2023 Hemoglobin A1c/Hemoglobin.total in Blood HBA1C [facility] Start: 02-13-2023 HEMOGLOBIN/HEMATOCRIT HEMOGLOBIN/HEM ATOCRIT [facility] Start: 02-13-2023 Hepatitis B surface antibody level LDL CHOLESTEROL [facility] Start: 02-12-2023 3 comp foot exam completed DIABETIC FOOT EXAM [facility] Start: 02-12-2023 ANNUAL PCP TEAM ADVISOR CONSULTANT SAUMYA DISEASE VISIT ANNUAL PCP TEAM CHRONIC DISEASE VISIT [facility] Start: 02-12-2023 BP CONTROLLED (<130/80) BP CONTROLLE D (<130/80) [facility] Start: 01-24-2023 COVID-19 VACCINE (6 - Pfizer series) COVID-19 VACCINE (6 - Pfizer series) [facility] Start: 11-28-2022 BP CONTROLLED (<130/80) BP CONTROLLE D (<130/80) [facility] Start: 10-09-2022 Hepatitis C antibody , confirmatory test DILATED RETINAL EXAM [facility] Start: 09-27-2022 ADVANCE DIRECTIVE DISCUSSION ADVANCE DIRECTIVE DISCUSSION [facility] Start: 09-27-2022 DEPRESSION ASSESSMENT DEPRESSION ASS ESSMENT [facility] Start: 08-16-2022 Hemoglobin A1c/Hemoglobin.total in Blood HBA1C [facility] Start: 07-30-2022 ANNUAL PCP TEAM ADVISOR CONSULTANT SAUMYA DISEASE VISIT ANNUAL PCP TEAM CHRONIC DISEASE VISIT [facility] Start: 07-14-2022 COVID-19 VACCINE (5 - Booster for Pfizer series) COVID-19 VACCINE (5 - Booster for Pfizer series) [facility] Start: 06-30-2022 Hepatitis B screening URINE AL BUMIN:CREATININE RATIO [facility] Start: 06-27-2022 Hepatitis B surface antibody level LDL CHOLESTEROL [facility] Start: 06-27-2022 Urine microalbumin profile DTAP,TDAP,TD (2 - Td or Tdap) [facility] Comment on above: Postponed from 07/28 (Declined at this time) Start: 05-28-2022 Influenza vaccination INFLUENZA (#1) [facility] Start: 04-25-2022 [facility] Work Phone: Start: 01-03-2022 Adult depression screening assessment DEPRESSION SCREENING [facility] Start: 01-03-2022 BP CONTROLLED (<130/80) BP CONTROLLE D (<130/80) [facility] Start: 12-26-2021 Hemoglobin A1c/Hemoglobin.total in Blood HBA1C [facility] Start: 12-16-2021 Colonoscopy COLONOSCOPY [facility] Start: 12-16-2021 COLORECTAL CANCER SCREENING COLORECTAL CANCER SCREENING [facility] Start: 12-16-2021 COVID-19 VACCINE (4 - Booster for Pfizer series) COVID-19 VACCINE (4 - Booster for Pfizer series) [facility] Start: 11-04-2021 3 comp foot exam completed DIABETIC FOOT EXAM [facility] Start: 09-27-2021 ADVANCE DIRECTIVE DISCUSSION ADVANCE DIRECTIVE DISCUSSION [facility] Start: 09-27-2021 DEPRESSION ASSESSMENT DEPRESSION ASS ESSMENT [facility] Start: 07-28-2017 Urine microalbumin profile [facility] Start: 05-04-2017 End: 05-04-2017 Appointment Appointment [facility] Work Phone: Start: 10-30-2016 End: 10-30-2016 SUPERVISOR INTERNATIONAL RESERVATIONS SUPERVISOR INTERNATIONAL RESERVATIONS [facility] Work Phone: Start: 10-30-2016 End: 10-30-2016 Follow Up Appt 6 months Follow Up Appt 6 months [facility] Work Phone: Start: 2013 Hepatitis B Vaccine (1 of 3 - Risk 3-dose series) Hepatitis B Vaccine (1 of 3 - Risk 3-dose series) [facility] Start: 2013 RSV Vaccine (1 - 1-d ose 60+ series) RSV Vaccine (1 - 1-dose 60+ series) [facility] Start: 1998 COLOGUARD (FIT-DNA) COLOGUARD (FIT-D NA) [facility] Start: [address] COLONOGRAPHY [facility] Start: 1998 FECAL OCCULT BLOOD FECAL OCCULT BLOO D [facility] Start: 1998 Screening for malign ant neoplasm of colon [facility] Start: 1998 [facility] Start: 1959 PNEUMOCOCCAL: 65+ (1 - PCV) PNEUMOCOCCAL: 65+ (1 - PCV) [facility] Blood chemistry [facility] End: 06-09-2026 MR Brain WO contrast MRI BRAIN W QUANT WO IVCON Radiology Routine Cognitive impairment, mild, so stated 1 Occurrences starting 05/10/2025 until 06/09/2026 [facility] Work Phone: Comment on above: 1 Occurrences starti ng 05/10/2025 until 06/09/2026 End: 06-09-2026 MR Unspecified body region 3D post processing MRI 3D BRAIN QUANT Radiology Routine Cognitive impairment, mild, so stated 1 Occurrences starting 05/10/2025 until 06/09/2026 [facility] Comment on above: 1 Occurrences starti ng 05/10/2025 until 06/09/2026 Patient Education [facility] Work Phone: Patient referral [facility] Work Phone: Radiologic exam ches t 2 views XR CHEST 2V FRONTAL/LAT Radiology Routine Bronchitis with bronchospasm 02/12/2022 4:20 PM EDT [facility] Work Phone: End: 08-05-2023 Screening colonoscopy COLONOSCOPY SCREENING Endoscopy Routine History of colonic polyps 1 Occurrences starting 08/05/2022 until 08/05/2023 [facility] Work Phone: Comment on above: 1 Occurrences starti ng 08/05/2022 until 08/05/2023 End: 08-04-2024 Screening colonoscopy COLONOSCOPY SCREENING Endoscopy Routine History of colonic polyps 1 Occurrences starting 08/04/2023 until 08/04/2024 [facility] Work Phone: Comment on above: 1 Occurrences starti ng 08/04/2023 until 08/04/2024 [facility] End: 05-12-2024 XR KNEE GENERAL 4V AP BOTH/PA BOTH/LAT/MERC LEFT XR KNEE GENERAL 4V AP BOTH/PA BOTH/LAT/MERC LEFT Radiology Routine Left knee pain, unspecified chronicity 1 Occurrences starting 04/13/2023 until 05/12/2024 [facility] Work Phone: Comment on above: 1 Occurrences starti ng 04/13/2023 until 05/12/2024 [facility] Immunizations Immunization Date Immunization Notes Care Provider [facility] 06-16-2024 influenza, high dose seasonal, preservative-free Grant Krause MD Work Phone: [facility] 06-16-2024 influenza virus vacc ine, unspecified formulation Grant Krause MD Work Phone: [facility] 07-08-2023 influenza (HD-IIV4) vaccine, age 65+ yr, high dose, quadrivalent, PF (FLUZONE HIGH-DOSE) Nilda Kim PA-C Work Phone: [facility] Work Phone: 07-08-2023 influenza virus vacc ine, unspecified formulation Grant Krause MD Work Phone: [facility] 09-25-2022 COVID-19 booster vaccine, age 12+ yr, bivalent (PFIZERBiocrates Life SciencesNTFrogtek Bop) Grant Krause MD Work Phone: [facility] Work Phone: 07-29-2022 influenza, high-dose , quadrivalent vaccine (FLUZONE HIGH DOSE QUADRIVALENT) Grant Krause MD Work Phone: [facility] Work Phone: 07-29-2022 influenza virus vacc ine, unspecified formulation Grant Krause MD Work Phone: [facility] 06-27-2021 influenza, high-dose , quadrivalent vaccine (FLUZONE HIGH DOSE QUADRIVALENT) Wendy Narvaez MA [facility] 01-27-2021 zoster vaccine recombinant Wendy Narvaez [facility] Work Phone: 12-27-2020 COVID-19 vaccine, ag e 12+ yr (PFIZER-BIONTECH - PURPLE TOP) Wendy Narvaez [facility] Work Phone: 12-06-2020 COVID-19 vaccine, ag e 12+ yr (PFIZER-BIONTECH - PURPLE TOP) Wendy Narvaez MA [facility] Work Phone: 07-20-2020 influenza, high-dose , quadrivalent vaccine (FLUZONE HIGH DOSE QUADRIVALENT) Wendy Narvaez MA [facility] 07-03-2020 zoster vaccine recombinant Wendy Narvaez [facility] Work Phone: 08-16-2019 influenza, high dose seasonal, preservative-free Wendy Narvaez [facility] Work Phone: 08-16-2019 pneumococcal polysaccharide vaccine, 23 valent Wendy Narvaez [facility] Work Phone: 07-21-2019 influenza, high dose seasonal, preservative-free Wendy Narvaez [facility] 07-28-[address] Grant Krause Work Phone: [facility] 07-28-2018 influenza, seasonal, injectable, preservative free Wendy Narvaez [facility] Work Phone: 06-01-2018 influenza, high dose seasonal, preservative-free Wendy Narvaez MA [facility] 06-01-2018 pneumococcal conjuga te vaccine, 13 valent Wendy Narvaez MA [facility] 05-28-2018 pneumococcal conjuga te vaccine, [address] Grant Krause Work Phone: [facility] 06-17-2017 influenza, injectabl e, quadrivalent, contains preservative Wendy Narvaez ALY [facility] Work Phone: 06-27-[address] Grant Krause Work Phone: [facility] 06-27-2016 influenza, seasonal, injectable, preservative free Wendy Narvaez [facility] Work Phone: 06-11-2016 influenza, injectabl e, quadrivalent, contains preservative Wendy Narvaez MA [facility] 08-13-2015 influenza, seasonal, injectable Wendy Narvaez ALY [facility] 06-27-2013 influenza virus vacc ine, unspecified formulation Wendy Maurerer [facility] Work Phone: 08-10-2011 influenza virus vacc ine, unspecified formulation Wendy Maurerer [facility] Work Phone: 07-31-2008 pneumococcal polysaccharide vaccine, 23 valent Wendy Maurerer [facility] Work Phone: 08-11-2007 influenza virus vacc ine, unspecified formulation Wendy Narvaez [facility] Work Phone: 07-28-2007 tetanus toxoid, redu miky diphtheria toxoid, and acellular pertussis vaccine, adsorbed Wendy Narvaez [facility] Work Phone: Payers Date Payer Category Payer Self-pay [id number] 2024 Medicare (Managed Care) LORNA ESCOTO O [id number] 2024 Unknown ANTHEM BLUE CROS S AND BLUE SHIELD ANTHEM MEDICARE ADVANTAGE HMO [id number] 2024-Present [phone] [address] [place] [address] HMO [id number] 2024 Medicare [id number] 2020 Medicare HUMANA MEDICARE HUMANA GOLD PLUS [id number] 2020-Present [phone] [address] [address] [place] [address] HMO [id number] 2020 Medicare [id number] 2018 Medicaid MEDICAID [facility] MEDICAID [id number] 2018-Present [phone] [address] [place] [address] Medicaid [id number] 2018 Medicaid [id number] 2017 Medicaid [id number] Medicare [id number] Private Health Insurance [id number] Unknown [id number] Unknown [id number] Unknown [id number] Unknown [id number] Unknown [id number] Unknown [id number] Social History Date Type Detail Facility Start: 03-13-2011 End: 08-05-2022 Tobacco smoking status NHIS Never smoked tobacco [facility] Start: 11-28-2021 End: 02-12-2022 Alcohol intake Current drinker of alcohol (finding) [facility] Start: 06-27-2021 History SDOH Alcohol Comment does not drink alcohol routinely [facility] Start: 1955 Sex Assigned At Not on file C [facility] Start: 10-29-2021 End: 08-05-2022 Exposure to SARS-CoV-2 (event) Not sure [facility] Start: 01-29-2022 End: 12-06-2023 Tobacco smoking status NVIS Unknown if ever smoked [facility] Start: 07-20-2015 Heavy [facility] Start: 09-25-2016 Marijuana [facility] Start: 07-26-2013 With Family [facility] Start: 09-25-2016 Non-smoker [facility] Start: 1955 Sex Assigned At Male W [facility] Start: 03-26-2022 End: 06-01-2025 Alcohol intake Ex-drinker (finding) [facility] Start: 03-13-2011 End: 08-05-2022 Tobacco use and exposure Smokeless tobacco non-user [facility] Work Phone: Start: 03-24-2023 End: 04-02-2023 History of Social function [facility] Work Phone: Start: 03-24-2023 End: 04-02-2023 Tobacco use panel [facility] Work Phone: Start: 08-28-2012 Adult Depression Screening Assessment 0 [facility] Work Phone: Start: 07-26-2023 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 Never [facility] Functional Status Date Assessment Result Facility 04-10-2025 Total score [AUDIT-C] 0 04/10/20 25 1:00 PM EDT Alena Mendes MA [facility] 01-04-2014 Are you deaf, or do you have serious difficulty hearing No 01/04/2014 4:32 PM EDT Roseann Cummings Ma No [facility] 01-04-2014 Are you blind, or do you have serious difficulty seeing, even when wearing glasses No 01/04/2014 4:32 PM EDT Roseann Cummings Ma No [facility] 01-04-2014 Do you have serious difficulty walking or climbing stairs No 01/04/2014 4:32 PM EDT Roseann Cummings Ma No [facility] 01-04-2014 Do you have difficul ty dressing or bathing No 01/04/2014 4:32 PM EDT Roseann Cummings Ma No [facility] 01-04-2014 Because of a physica l, mental, or emotional condition, do you have difficulty doing errands alone such as visiting a physician's office or shopping No 01/04/2014 4:32 PM EDT Roseann Cummings Ma No [facility] Mental Status Date Assessment Result Facility 06-09-2023 Cognitive function Level Of Cons ciousness Awake;Alert;Appropriate;Fol lows Commands [facility] Work Phone: 04-25-2022 Cognitive function Level Of Cons ciousness Awake;Alert;Appropriate;Fol lows Commands [facility] Work Phone: 01-29-2022 Cognitive function Level Of Cons ciousness Awake;Alert;Appropriate;Fol lows Commands [facility] Work Phone: 01-04-2014 Because of a physica l, mental, or emotional condition, do you have serious difficulty concentrating, remembering, or making decisions No 01/04/2014 4:32 PM EDT Roseann Cummings Ma No [facility] Clinical Notes 03-27-2012 to 07-30-2025 Margarito Joseph - 06/01/2025 2:25 PM Rupali Bingham RN - 06/01/2025 2:17 PM EDTPatient InstructionsPatient Terri Abacra MD - 05/10/2025 2:33 PM EDTPatient Instructions Note Date & Type Note Facility 07-30-2025 Note HNO ID: [id number] Author: NILDA KIM PA-C Service: ? 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 Site: L knee joint Medications: 6 mg betamethasone acetate-betamethasone sodium phosphate 6 mg/mL Anesthetics: 5 mL lidocaine (PF) 10 mg/mL (1 %) Outcome: Tolerated well, no immediate complications Post-injection instructions were reviewed with the patient and the patient voiced understanding of these instructions. Informed Consent Consent Obtained: Verbal [place] Protocol A moment to CARE was completed. SIGN IN Sign in communication not applicable due to emergent procedure. Personnel directly involved with the procedure wore the appropriate PPE. Special Equipment: N/A Patient/Surrogate Stated/Verified: Patient name, Date of , Relevant allergies and Intended procedure TIME OUT Relevant labs, photos, and/or imaging studies have been reviewed. Consent documented and matches the intended procedure. Correct side/site marked and visible. Medications required for procedure verified. No fire risk assessment and interventions applicable. No implant(s) inserted. [facility] 07-30-2025 Note HNO ID: [id number] Author: ARABELLA COHEN MA Service: ? Author Type: Burn Crew Member Type: Progress Notes Filed: 07/30/2025 12:03 Note Text: AMB ROOMING INTAKE FLOWSHEET DATA Pain Pain Level: 4 Pain Location: Knee-Left Description: Sharp, Dull, Aching Duration Amount of Time: (ongoing) Frequency: Intermittent Intervention/Comfort measure: Medication [facility] 07-10-2025 Note HNO ID: [id number] Author: CELSO PICKERING RT(R) Service: ? Author Type: Technologist Type: Progress Notes Filed: 07/10/2025 14:54 Note Text: Radiology Service Progress Note PATIENT NAME: Xavi Cabello DATE OF SERVICE: July 10, 2025 TIME: 2:47 PM PATIENT IDENTITY VERIFICATION COMPLETED USING TWO (2) IDENTIFIERS: Name and Date of confirmed by patient verbally. FALL SCREENING: Has the patient had 2 falls in the last year or 1 fall with injury or currently using an Ambulatory Assistive Device (Walker, Cane, Wheelchair, Crutches, etc.)? 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 Anesthesia: No. Aromatherapy Administered: No PERIPHERAL IV DATA: Not applicable 3d brain QUANT SIGNED BY: RT Zully(R) July 10, 2025 2:[address] [facility] 06-27-2025 Note HNO ID: [id number] Author: TERRI AGUIRRE MD Service: ? Author Type: Physician Type: Progress Notes Filed: 06/27/2025 17:49 Note Text: Reason for Visit HPI Xavi is a 70-year-old male with a history of tremors, tinnitus, and sleep apnea, presenting for follow-up. Xavi reports difficulty locating the facility for a scheduled MRI test, resulting in multiple visits to the wrong hospital. He plans to attempt the test again with assistance from his cousin and roommate, who have navigation capabilities on their phones. Xavi expresses a desire to discontinue using his current sleep apnea machine and is interested in the Inspire device. He inquires about potential interference with future dental implants and mentions that his insurance may cover some costs for both the Inspire device and dental implants. He reports ongoing tremors, for which he is taking medication. Initially prescribed one pill, he requested an increase to two pills daily and believes a dosage of 4-5 pills would be more effective. He also experiences tinnitus and expresses skepticism about available treatments. SOCIAL HISTORY[1] Past medical history, appointments, medications, allergies reviewed. Pertinent Lab/Diagnostic Studies are reviewed and discussed today Current Outpatient Medications: Fenofibrate (LOFIBRA) 160 mg tablet gabapentin (NEURONTIN) 100 mg capsule glipiZIDE (GLUCOTROL XL) 2.5 mg 24 hr tablet metFORMIN (GLUCOPHAGE) 500 mg tablet sildenafil (VIAGRA) 100 mg tablet empagliflozin (JARDIANCE) 25 mg tablet tamsulosin (FLOMAX) 0.4 mg CPAP/BIPAP/OTHER lisinopril (ZESTRIL) 10 mg tablet albuterol HFA (PROVENTIL HFA, VENTOLIN HFA) 90 mcg/actuation inhaler rosuvastatin (CRESTOR) 40 mg tablet nitroglycerin sublingual (NITROQUICK) 0.4 mg SL tablet metoprolol tartrate, short acting, (LOPRESSOR) 25 mg tablet furosemide (LASIX) 20 mg tablet potassium chloride (K-TAB) 10 mEq tablet ranolazine SR (RANEXA) 1,000 mg tab ER 12 hr aspirin, enteric coated (ECOTRIN LOW STRENGTH) 81 mg EC tablet Health Maintenance Influenza Vaccine(1)@ Review Of Systems Ears/Nose/Mouth/Throat: (+) tinnitus Neurological: (+) tremor Physical Exam BP 122/78 Pulse 86 Resp 16 Wt 102.1 kg (225 lb) BMI 35.73 kg/m? GENERAL: NAD, alert and oriented SKIN: unremarkable, no rash or skin lesions. HEAD: normocephalic EYES: PERRLA, EOMI, conjunctiva clear EARS: external ears normal, canals clear, TM's normal. NOSE/SINUSES: Nares normal. Septum midline. OROPHARYNX: lips, mucosa, and tongue normal, good dentition. No oral lesions noted. NECK: Supple, no lymphadenopathy, normal thyroid, no carotid bruits. LUNGS: Clear to auscultation bilaterally, no wheezes/rhonchi/rales. HEART: Regular rate and rhythm, no murmurs. No ectopy. EXTREMITIES: Normal, No deformities, No skin discoloration, No edema. NEURO: Awake, alert and oriented x3, cranial nerves II-XII grossly intact, normal gait, no involuntary motions. No tremor noted. Tests AND Prior Procedures: - Neurologic assessment: No dementia; some memory issues; no Parkinson's disease Assessment and Plan 1. Cognitive impairment, mild, so stated (G31.84) No evidence of dementia or Parkinson's disease; mild memory issues noted. - MRI reordered after previous attempt was unsuccessful due to navigation issues. - Patient educated on the importance of completing the MRI. - Follow-up after MRI completion. Voice recognition software was used to compose this office note. Please excuse any unintended typographical errors. Recording using ambient [employer] software for draft documentation of the visit was discussed with the patient/authorized payable representative; all questions welcomed and answered. 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 Service: ? Author Type: Physician Type: Progress Notes Filed: 06/01/2025 14:37 Note Text: Last saw pcp: 05/10/25 Subjective: Patient presents to clinic c/o painful toenails. They state that the nails are especially painful with shoe gear and pressure. Patient states that nails 1-5 b/l are painful. Patient admits to being diabetic. No other pedal complaints at this time. Patient states no change in medications or medical history since last visit. Objective: Patient presents to clinic ambulating in And 1 high tops Vasc: DP and PT pulses are palpable bilateral. CFT is less than 5 seconds bilateral. Skin temperature is warm to cool proximal to distal bilateral. There is mild edema or varicosities noted. Neuro: Protective sensation is decreased to the foot and toes when tested with the 5.07 SWM bilateral. Vibratory sensation is absent at the hallux IPJ bilateral. The hallux is downgoing bilateral. Derm: Nails 1-5 b/l are painful, discolored-yellow, thick, crumbly, dystrophic and with subungal debris. Skin is of normal turgor, texture and hair growth is present bilateral. There are no hyperkeratosis, ulcerations, scars, verruca or other lesions noted. Ortho: Muscle strength is 5/5 for all pedal groups tested. Ankle joint DF is decreased with the knee extended with no pain or crepitus noted. 1st MPJ ROM is decreased bilateral. Large bunion is present to b/l feet R>L Assessment: (B35.1) Onychomycosis (primary encounter diagnosis) (M79.675) Pain in toe of left foot (M79.674) Pain in toe of right foot (E11.42) Diabetic polyneuropathy associated with type 2 diabetes mellitus (HCC) (M20.11) Acquired hallux valgus of right foot Plan: Patient was seen and evaluated. Nails 1-5 bilateral were debrided in length and thickness. I personally discussed the bunion deformity of both feet R>L. He has no pain and has no open sores. I discussed how bunions could lead to rubbing in narrow shoe gear so we discussed the need for wider shoes and/or padding. He has elected for wider shoes Because of diabetes and having neuropathy, I personally feel that a diabetic shoe will be a far better option than his current shoe so these were ordered. Other options discussed include surgery. He has elected to pursue conservative care for now Patient was instructed on the continued importance of diabetic foot care along with proper diet and keeping their blood sugar under control to prevent complications. I stressed the importance of avoiding barefoot walking, wearing good shoes and inspection of feet Patient is to RTC in 3-4 months. Margarito Joseph DPM [facility] 06-01-2025 History of Presen t illness Narrative Last saw pcp: 05/10/25 Subjective: Patient presents to clinic c/o painful toenails. They state that the nails are especially painful with shoe gear and pressure. Patient states that nails 1-5 b/l are painful. Patient admits to being diabetic. No other pedal complaints at this time. Patient states no change in medications or medical history since last visit. Objective: Patient presents to clinic ambulating in And 1 high tops Vasc: DP and PT pulses are palpable bilateral. CFT is less than 5 seconds bilateral. Skin temperature is warm to cool proximal to distal bilateral. There is mild edema or varicosities noted. Neuro: Protective sensation is decreased to the foot and toes when tested with the 5.07 SWM bilateral. Vibratory sensation is absent at the hallux IPJ bilateral. The hallux is downgoing bilateral. Derm: Nails 1-5 b/l are painful, discolored-yellow, thick, crumbly, dystrophic and with subungal debris. Skin is of normal turgor, texture and hair growth is present bilateral. There are no hyperkeratosis, ulcerations, scars, verruca or other lesions noted. Ortho: Muscle strength is 5/5 for all pedal groups tested. Ankle joint DF is decreased with the knee extended with no pain or crepitus noted. 1st MPJ ROM is decreased bilateral. Large bunion is present to b/l feet R>L Assessment: (B35.1) Onychomycosis (primary encounter diagnosis) (M79.675) Pain in toe of left foot (M79.674) Pain in toe of right foot (E11.42) Diabetic polyneuropathy associated with type 2 diabetes mellitus (HCC) (M20.11) Acquired hallux valgus of right foot Plan: Patient was seen and evaluated. Nails 1-5 bilateral were debrided in length and thickness. I personally discussed the bunion deformity of both feet R>L. He has no pain and has no open sores. I discussed how bunions could lead to rubbing in narrow shoe gear so we discussed the need for wider shoes and/or padding. He has elected for wider shoes Because of diabetes and having neuropathy, I personally feel that a diabetic shoe will be a far better option than his current shoe so these were ordered. Other options discussed include surgery. He has elected to pursue conservative care for now Patient was instructed on the continued importance of diabetic foot care along with proper diet and keeping their blood sugar under control to prevent complications. I stressed the importance of avoiding barefoot walking, wearing good shoes and inspection of feet Patient is to RTC in 3-4 months. Margarito Joseph DPM Patient presents with: Left Foot - Established Patient, Follow Up, Diabetic Foot Care Right Foot - Established Patient, Follow Up, Diabetic Foot Care Patient presents for follow up diabetic foot/nail care. WALT 11/28/24 documented in this encounter [facility] 06-01-2025 Instructions Margarito Joseph - 06/01/2025 2:25 PM EDT Diabetes Foot Care Instructions When you have diabetes, proper foot care is very important. Poor foot care may lead to amputation of a foot or leg. As a person with diabetes, you are more vulnerable to foot problems, because diabetes can damage your nerves and reduce blood flow to your feet. Here are some diabetes foot care tips to follow: Wash and Dry Your Feet Daily Use mild soaps Use warm water Pat your skin dry; do not rub. Thoroughly dry your feet. After washing, use lotion on your feet to prevent cracking. Do not put lotion between your toes. Examine Your Feet Each Day Check the tops and bottoms of your feet. Have someone else look at your feet if you cannot see them. Check for dry, cracked skin. Look for blisters, cuts, scratches, or other sores. Check for redness, increased warmth, or tenderness when touching any area of your feet. Check for ingrown toenails, corns, and calluses. If you get a blister or sore from your shoes, do not pop it. Apply a bandage and wear a different pair of shoes. Take Care of Your Toenails Cut toenails after bathing, when they are soft. Cut toenails straight across and smooth with a nail file. Avoid cutting into the corners of toes. Do not cut cuticles. If you have neuropathy (or decreased sensation in your feet) a director data processing should always cut your toenails. Be Careful When Exercising Walk and exercise in comfortable shoes. Do not exercise when you have open sores on your feet. Protect Your Feet With Shoes and Socks Never go barefoot. Always protect your feet by wearing shoes or hard-soled slippers or footwear. Avoid shoes with high heels and pointed toes. Avoid shoes that expose your toes or heels (such as open-toed shoes or sandals). These types of shoes increase your risk for injury and potential infections. Try on new footwear with the type of socks you usually wear. Do not wear new shoes for more than an hour at a time. Change your socks daily. Look and feel inside your shoes before putting them on to make sure there are no foreign objects or rough areas. Avoid tight socks. Wear natural-fiber socks (cotton, wool, or a cotton-wool blend). Wear special shoes if your health care provider recommends them. Wear shoes/boots that will protect your feet from various weather conditions (cold, moisture, etc.). Make sure your shoes fit properly. If you have neuropathy (nerve damage), you may not notice that your shoes are too tight. Perform the footwear test described below. Footwear Test Use this simple test to see if your shoes fit correctly: Stand on a piece of paper. (Make sure you are standing and not sitting, because your foot changes shape when you stand.) Trace the outline of your foot. Trace the outline of your shoe. Compare the tracings: Is the shoe too narrow? Is your foot crammed into the shoe? The shoe should be at least 1/2 inch longer than your longest toe and as wide as your foot. Proper Shoe Choices The following types of shoes are best for people with diabetes Closed toes and heels Leather uppers without a seam inside At least 1/2 inch extra space at the end of your longest toe Inside of shoe should be soft with no rough areas Outer sole should be made of stiff material Shoes should be at least as wide as your feet Tips for Foot Care in Diabetes Don't wait to treat a minor foot problem if you have diabetes. Follow your health care provider's guidelines and first aid guidelines. Report foot injuries and infections to your health care provider immediately. Check water temperature with your elbow, not your foot. Do not use a heating pad on your feet. Do not cross your legs. Do not self-treat your corns, calluses, or other foot problems. Go to your health care provider or director data processing to treat these conditions. documented in this encounter [facility] 06-01-2025 Note HNO ID: [id number] Author: RUPALI PENDLETON RN Service: ? Author Type: Registered Nurse Type: Progress Notes Filed: 06/01/2025 14:37 Note Text: Patient presents with: Left Foot - Established Patient, Follow Up, Diabetic Foot Care Right Foot - Established Patient, Follow Up, Diabetic Foot Care Patient presents for follow up diabetic foot/nail care. WALT 11/28/24 [facility] 05-10-2025 Instructions Terri Aguirre MD - 05/10/2025 3:23 PM EDT We discussed your memory concerns: - You reported some memory issues, particularly with recent events, but noted that you can remember older events well. You are still able to manage your medications, bills, and daily activities independently. - I recommend getting an MRI to evaluate for possible causes of memory issues, such as Alzheimer s disease. This will need to be done in [place]. Please arrange transportation if needed. - I also ordered lab work, including a vitamin B12 level, as low levels can contribute to memory problems. Please complete this lab work downstairs before leaving today. - In the meantime, I encourage you to: - Exercise daily, such as walking, to improve overall health and brain function. - Keep your blood sugar and blood pressure under control by taking your medications as prescribed. - Stay socially engaged by meeting with friends, family, or participating in community activities. Activities like puzzles or games can also help keep your mind active. We discussed your dizziness: - You mentioned occasional dizziness when standing up quickly. This may be related to changes in blood pressure. To reduce this, try standing up more slowly and holding onto something for support if needed. - If dizziness becomes more frequent or severe, please let me know. We discussed your tremors: - You are currently taking medication for your tremors. If you feel the tremors are not well-controlled or worsening, let me know so we can adjust your treatment. We discussed your sleep: - You recently completed a sleep study and are considering the Inspire device for sleep apnea. This would require a surgical procedure and follow-up visits at the [facility]. If you decide to pursue this, please contact Dr. Wright and your insurance provider to discuss coverage and next steps. Follow-Up: - Please complete the lab work today and schedule the MRI in [place]. Once the MRI is completed, we will review the results together at your next visit. - Continue your current medications and lifestyle adjustments as discussed. Let me know if you experience any new or worsening symptoms. documented in this encounter [facility] 05-10-2025 Note HNO ID: [id number] Author: TERRI AGUIRRE MD Service: ? Author Type: Physician Type: Progress Notes Filed: 05/10/2025 16:48 Note Text: [facility] Initial Consult Xavi Cabello is a 70 year old year old male who comes for Comprehensive Geriatric Assessment. Pt accompanied by: Caregivers involved in care: HPI: Xavi needed to be redirected multiple times in our interview today, although he was very pleasant Xavi Cabello is a 70-year-old male, with a history of tremors, presenting for evaluation of memory concerns. Xavi reports concerns about memory, noting that he has always had some forgetfulness but is now uncertain if it is more significant. He believes he performed okay on a recent cognitive test, particularly on the clock-drawing task, and mentions that a previous physician did not detect any issues. He is interested in living to 89 years old and wants to maintain cognitive function to realize what's going on. He is unsure if his memory issues are related to a potential stroke, though he is on medication for stroke prevention. He also mentions a family history of dementia or Alzheimer's, as his sister is currently in a correction with a form of dementia. Xavi reports that he can remember lots of old things and some recent events, but he is not sure if his memory is impaired. He denies feeling sad or depressed and has never been or had children, though he mentions two miscarriages with friends. He lives with a 62-year-old roommate, who has had about 15 heart surgeries and some memory issues. Xavi is on Social Security and does not work; he manages his own bills, medications, and transportation. He drives locally but avoids big cities due to traffic stress. He has had a couple of close calls while driving but attributes them to momentary lapses in attention rather than memory issues. He also experiences tinnitus, describing it as a swimming sound, and is on medication for it. He has had five heart surgeries, with the last three performed locally. He recently underwent a sleep study and has used a CPAP machine in the past. He is considering the Inspire device for sleep apnea management. He reports good sleep quality, though he stays up late and gets up once or twice to use the bathroom. He denies restless legs but mentions occasional hallucinations, such as seeing or hearing things that are not there. He also experiences dizziness when getting up too quickly and has had a fall in the past year due to his leg giving out, but he denies any recent falls. Xavi has a history of cortisone injections every 90 days for arthritis. He denies any issues with swallowing or chewing and is trying to get hearing aids due to a potential hearing loss. He has a history of smoking marijuana and using other drugs but denies current use. He does not own any firearms and denies any suicidal ideation. He socializes with his cousin and his cousin's , going out to eat with them when he gets paid. He also tries to visit his nephew, who works at [employer], but has had difficulty reaching him. Any Family History of dementia? Not sure anyone has had the disease. Are you or your spouse a ? No Alzheimer Questionnaire Long-term Memory: Difficulty remembering distant events from the past like childhood, previous employment, wedding: YES Behavioral/personality: Withdrawn/Depressed: NO Crying spells: NO Anxious: NO History of aggression: NO History of irritability: NO Apathy:NO Recent changes in weight or appetite: NO Alcohol or Drug use: NO Smoking? NO Sleep: Do you snore loudly (louder than talking or loud enough to be heard through closed doors)? Has a sleep machine Are you restless when you sleep at night? NO Do you have problems falling a sleep? NO Do you have problems staying a sleep? NO Psychosis: Hallucinations or delusions: NO Suicidal or homicidal ideations: NO Obsessions, compulsions, or hoarding: NO Safety: Does pt know his/her address? YES What would you do if there was a fire? Get out and call 911 Are there any firearms in the home? No Social History: Primary language: Czech Marital Status: Single Living situation: with friend Socially engaged? (participates in activities such as clubs, scientology, community center, sports, games, visiting friends/relatives, etc?): YES meets his cousin once in a while. Caregiver [place] and Stress Are your feeling overwhelmed? NO Do you have concerns about your own health? NO Are you neglecting your own needs? NO Do you have financial concerns? NO Do your fear loss of employment? NO Do you have concerns about verbal/physical abuse? NO Do you feel that you are still capable of taking care of your relative? N/a Are you willing to continue being in the caregiver role? N/a B-ADLs: (I=independent,A=assistance,D=d (more content not included)... [facility] 05-10-2025 History of Presen t illness Narrative [facility] Initial Consult Xavi Cabello is a 70 year old year old male who comes for Comprehensive Geriatric Assessment. Pt accompanied by: Caregivers involved in care: HPI: Xavi needed to be redirected multiple times in our interview today, although he was very pleasant Xavi Cabello is a 70-year-old male, with a history of tremors, presenting for evaluation of memory concerns. Xavi reports concerns about memory, noting that he has always had some forgetfulness but is now uncertain if it is more significant. He believes he performed okay on a recent cognitive test, particularly on the clock-drawing task, and mentions that a previous physician did not detect any issues. He is interested in living to 89 years old and wants to maintain cognitive function to realize what's going on. He is unsure if his memory issues are related to a potential stroke, though he is on medication for stroke prevention. He also mentions a family history of dementia or Alzheimer's, as his sister is currently in a correction with a form of dementia. Xavi reports that he can remember lots of old things and some recent events, but he is not sure if his memory is impaired. He denies feeling sad or depressed and has never been or had children, though he mentions two miscarriages with friends. He lives with a 62-year-old roommate, who has had about 15 heart surgeries and some memory issues. Xavi is on Social Security and does not work; he manages his own bills, medications, and transportation. He drives locally but avoids big cities due to traffic stress. He has had a couple of close calls while driving but attributes them to momentary lapses in attention rather than memory issues. He also experiences tinnitus, describing it as a swimming sound, and is on medication for it. He has had five heart surgeries, with the last three performed locally. He recently underwent a sleep study and has used a CPAP machine in the past. He is considering the Inspire device for sleep apnea management. He reports good sleep quality, though he stays up late and gets up once or twice to use the bathroom. He denies restless legs but mentions occasional hallucinations, such as seeing or hearing things that are not there. He also experiences dizziness when getting up too quickly and has had a fall in the past year due to his leg giving out, but he denies any recent falls. Xavi has a history of cortisone injections every 90 days for arthritis. He denies any issues with swallowing or chewing and is trying to get hearing aids due to a potential hearing loss. He has a history of smoking marijuana and using other drugs but denies current use. He does not own any firearms and denies any suicidal ideation. He socializes with his cousin and his cousin's , going out to eat with them when he gets paid. He also tries to visit his nephew, who works at [employer], but has had difficulty reaching him. Any Family History of dementia? Not sure anyone has had the disease. Are you or your spouse a ? No Alzheimer Questionnaire Long-term Memory: Difficulty remembering distant events from the past like childhood, previous employment, wedding: YES Behavioral/personality: Withdrawn/Depressed: NO Crying spells: NO Anxious: NO History of aggression: NO History of irritability: NO Apathy:NO Recent changes in weight or appetite: NO Alcohol or Drug use: NO Smoking? NO Sleep: Do you snore loudly (louder than talking or loud enough to be heard through closed doors)? Has a sleep machine Are you restless when you sleep at night? NO Do you have problems falling a sleep? NO Do you have problems staying a sleep? NO Psychosis: Hallucinations or delusions: NO Suicidal or homicidal ideations: NO Obsessions, compulsions, or hoarding: NO Safety: Does pt know his/her address? YES What would you do if there was a fire? Get out and call 911 Are there any firearms in the home? No Social History: Primary language: Czech Marital Status: Single Living situation: with friend Socially engaged? (participates in activities such as clubs, scientology, community center, sports, games, visiting friends/relatives, etc?): YES meets his cousin once in a while. Caregiver [place] and Stress Are your feeling overwhelmed? NO Do you have concerns about your own health? NO Are you neglecting your own needs? NO Do you have financial concerns? NO Do your fear loss of employment? NO Do you have concerns about verbal/physical abuse? NO Do you feel that you are still capable of taking care of your relative? N/a Are you willing to continue being in the caregiver role? N/a B-ADLs: (I=independent,A=assistance,D=de pendent) ?Bathing: I, Dressing: I, Toileting: I, Transferring:I, Continence: I, Feeding: I, I-ADLs: Ability to use phone: I, Shopping: I, Cooking: I, Housekeeping: I, Laundry: I, Transportation:I, Medications: {I, Handle Finances: I. PMHx: PAST MEDICAL HISTORY Diagnosis Date Alcohol abuse 03/05/2012 Arthritis Asthma ([facility]) BPH with obstruction/lower urinary tract symptoms 12/11/2015 CAD (coronary artery disease), squaxin coronary artery 03/05/2012 COPD (chronic obstructive pulmonary disease) ([facility]) COVID-19 04/24/2022 Hypertension Hypertrophy of prostate without urinary obstruction and other lower urinary tract symptoms (LUTS) 07/28/2007 Left knee pain Marijuana use Nocturnal hypoxia 10/06/2017 Obesity (BMI 30-39.9) Obstructive sleep apnea 10/06/2017 DME [facility] Other and unspecified hyperlipidemia Stented coronary artery 03/08/2012 Tubular adenoma of colon 08/03/2012 Type 2 diabetes mellitus with stage 3a chronic kidney disease, without long-term current use of insulin ([facility]) 09/26/2022 Type II or unspecified type diabetes mellitus without mention of complication, not stated as uncontrolled 09/05/2007 Unstable angina ([facility]) 07/28/2013 PSHx: PAST SURGICAL HISTORY Procedure Laterality Date COLONOSCOPY 09/23/2022 poor bowel prep-repeat in 1 year COLONOSCOPY 08/25/2023 repeat 5 years COLONOSCOPY FLX DX W/COLLJ SPEC WHEN PFRMD 08/03/2012 Colonoscopy COLONOSCOPY FLX DX W/COLLJ SPEC WHEN PFRMD 12/16/2016 Colonoscopy mac EYE SURGERY HX HERNIA REPAIR HX LEFT HEART CATH,PERCUTANEOUS 07/31/2013 Cardiac cath, L heart LEFT HEART CATH,PERCUTANEOUS 07/23/2015 Cardiac cath, L heart PAST SURGICAL HISTORY OF 1968 circumcision PAST SURGICAL HISTORY OF Left 1968 eye surgery left eye only PAST SURGICAL HISTORY OF 03/24/2004 Umbilical hernia repair TONSILLECTOMY & ADENOIDECTOMY <AGE 10 1958 TONSILLECTOMY HX TRANSCATH STENT INIT VESSEL,PERCUT 03/07/2012 Transcath stent init vessel percut Home Meds: Prior to Admission medications: Medication gabapentin (NEURONTIN) 100 mg capsule, Sig Take 1 capsule by mouth two times a day for 180 days. Taking for tremors, Start Date 04/10/25, End Date 10/07/25, Taking? Yes, Authorizing Provider Liat Smith, HIGH 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 Medication glipiZIDE (GLUCOTROL XL) 2.5 mg 24 hr tablet, Sig Take 1 tablet by mouth once daily. Taking Diabetes, Start Date 04/10/25, Taking? Yes, Authorizing Provider Liat Smith, HIGH 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 Medication metFORMIN (GLUCOPHAGE) 500 mg tablet, Sig Take 1 tablet by mouth two times a day with meals. ., Start Date 04/10/25, Taking? Yes, Authorizing Provider Liat Smith, HIGH 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 Medication sildenafil (VIAGRA) 100 mg tablet, Sig Take 1 tablet by mouth once daily as needed. Take 30-60 minutes before sexual activity., Start Date 04/03/25, Taking? Yes, Authorizing Provider Liat Smith, HIGH 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 Medication empagliflozin (JARDIANCE) 25 mg tablet, Sig Take 1 tablet by mouth once daily. Take 1 tablet once daily in the morning, Start Date 11/02/24, Taking? Yes, Authorizing Provider Grant Krause MD Medication tamsulosin (FLOMAX) 0.4 mg, Sig Take 1 capsule by mouth once daily., Start Date 11/02/24, Taking? Yes, Authorizing Provider Grant Krause MD Medication CPAP/BIPAP/OTHER, Sig Type .CPAPSettings into a note to see current settings/supplies/DME information., Start Date 11/02/24, End Date 03/19/52, Taking? Yes, Authorizing Provider Grant Krause MD Medication lisinopril (ZESTRIL) 10 mg tablet, Sig Take 1 tablet by mouth once daily., Start Date 10/24/24, Taking? Yes, Authorizing Provider Liat Smith, HIGH 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 Medication albuterol HFA (PROVENTIL HFA, VENTOLIN HFA) 90 mcg/actuation inhaler, Sig Inhale 2 Puffs as instructed every 6 hours as needed for wheezing/shortness of breath., Start Date 10/24/24, Taking? Yes, Authorizing Provider Liat Smith, HIGH 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 Medication rosuvastatin (CRESTOR) 40 mg tablet, Sig Take 1 tablet by mouth daily at bedtime. For cholesterol., Start Date 10/09/24, Taking? Yes, Authorizing Provider Grant Krause MD Medication nitroglycerin sublingual (NITROQUICK) 0.4 mg SL tablet, Sig Dissolve 1 tablet under the tongue as needed for chest pain., Start Date 09/18/24, Taking? Yes, Authorizing Provider Liat Smith, HIGH 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 Medication metoprolol tartrate, short acting, (LOPRESSOR) 25 mg tablet, Sig Take 1 tablet by mouth two times a day., Start Date 06/20/24, Taking? Yes, Authorizing Provider Liat Smith, HIGH 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 Medication Fenofibrate (LOFIBRA) 160 mg tablet, Sig Take 1 tablet by mouth once daily., Start Date 06/16/24, Taking? Yes, Authorizing Provider Grant Krause MD Medication furosemide (LASIX) 20 mg tablet, Sig Take 1 tablet by mouth once daily. From [facility] Start Date 12/09/23, Taking? Yes, Authorizing Provider Grant Krause MD Medication potassium chloride (K-TAB) 10 mEq tablet, Sig Take 1 tablet by mouth daily with breakfast. From [facility] Start Date 12/09/23, Taking? Yes, Authorizing Provider Grant Krause MD Medication ranolazine SR (RANEXA) 1,000 mg tab ER 12 hr, Sig Take 1 tablet by mouth twice daily. Per CARDIOLOGY., Start Date 09/28/22, Taking? Yes, Authorizing Provider Grant Krause MD Medication aspirin, enteric coated (ECOTRIN LOW STRENGTH) 81 mg EC tablet, Sig Take 1 tablet by mouth once daily., Start Date 01/03/15, Taking? Yes, Authorizing Provider Grant Krause MD Medication Review: - ANY HIGH RISK MEDICATIONS (STOPP CRITERIA): NO ALLERGIES No Known Allergies Review of Systems Difficulty chew/swallow: no Pain: no Tremor: yes Incontinence - During the last 3 months did you leak urine? NO - Type?: mixed incontinence No Constipation/Change in bowel habits: NO Vision No vision problems reported Follows with retail buyer:NO Hearing - Hearing aid : Hearing impairment, no hearing aids Falls: .: Falls in the last 12 months: None. If + falls: Physical Exam: General: Well-nourished, kempt, obese Ambulatory: without assistance Mobility Aid: None Head: Normocephalic Cardio: regular rate and rhythm Pulmonary: Lungs clear to auscultation bilaterally Extremities: Extremities normal. No deformities, edema, or skin discoloration. Musculoskeletal: Normal Gait Extremities: Extremities normal. No deformities, edema, or skin discoloration. Musculoskeletal: No rigidity, tremor or bradykinesia is noted. Rhomberg: Negative. Neuro:Deep Tendon reflexes :2/4 , Both Lurias test: was normal. A tandem gait testing was normal. Was able to stand on either leg for 10 seconds without any issues. Gait: Unsteadiness: NO Shuffling: NO Tremors: NO Slowness: NO Edgar Cognitive Exam (MOCA): CDR Dementia Scale 1) Subjective Memory Loss: YES 2) Measurable Memory Loss: YES 3) IADLs: NO 4) BADLs: NO Driving Safely: No < 50% 6) Medications: No Level: CDR 0.5 Depression Screening/Evaluation: GDS: 11/11 Assessment and Plan: 1. Cognitive deficits (R41.89) Cognitive impairment, mild, so stated (G31.84) Patient exhibits mild cognitive impairment with concerns about memory retention, particularly recent events. No significant issues with daily functioning, including medication management, bill payments, and driving. No family history of Alzheimer's disease reported. Patient experiences occasional hallucinations and tremors, managed with medication. Recent dizzy spells noted, likely orthostatic in nature. - Ordered MRI to further evaluate cognitive impairment; patient to have MRI done in [place]. - Ordered lab work, including Vitamin B12 levels, to be done downstairs before leaving. - Encouraged regular exercise, blood sugar control, and blood pressure management. - Advised patient to engage in community activities and social interactions to maintain cognitive function. - Follow-up appointment scheduled after MRI results are available. REFERRALS AND RECOMMENDATIONS 1. Discussed the cognitive benefits of memory exercises and reviewed examples 2. Discussed the cognitive benefits of physical exercise and socialization Voice recognition software was used to compose this office note. Please excuse any unintended typographical errors. Terri Aguirre MD [facility] documented in this encounter [facility] 04-23-2025 Note HNO ID: [id number] Author: NILDA KIM PA-C Service: ? Author Type: Physician Fishing Line Winding Machine Operator Type: Progress Notes Filed: 04/23/2025 14:40 Note Text: Large Joint Arthro/Inj: L knee joint 04/23/2025 2:40 PM The procedure site was prepped in the usual sterile fashion. Site: L knee joint Medications: 6 mg betamethasone acetate-betamethasone sodium phosphate 6 mg/mL Anesthetics: 5 mL lidocaine (PF) 10 mg/mL (1 %) Outcome: Tolerated well, no immediate complications Post-injection instructions were reviewed with the patient and the patient voiced understanding of these instructions. Informed Consent Consent Obtained: Verbal [place] Protocol A moment to CARE was completed. SIGN IN Sign in communication not applicable due to emergent procedure. Personnel directly involved with the procedure wore the appropriate PPE. Special Equipment: N/A Patient/Surrogate Stated/Verified: Patient name, Date of , Relevant allergies and Intended procedure TIME OUT Relevant labs, photos, and/or imaging studies have been reviewed. Consent documented and matches the intended procedure. Correct side/site marked and visible. Medications required for procedure verified. No fire risk assessment and interventions applicable. No implant(s) inserted. SIGN OUT No specimen collected. All instruments, equipment, possible retained foreign bodies accounted for. No post-procedure POC communication to the patient's multidisciplinary team (including the bedside nurse for hospitalized patients) applicable. [facility] 04-23-2025 History of Presen t illness Narrative Associated Order(s): Large Joint Arthro/Inj: L knee joint Post-Procedure Diagnose(s): Primary osteoarthritis of left knee Large Joint Arthro/Inj: L knee joint 04/23/2025 2:40 PM The procedure site was prepped in the usual sterile fashion. Site: L knee joint Medications: 6 mg betamethasone acetate-betamethasone sodium phosphate 6 mg/mL Anesthetics: 5 mL lidocaine (PF) 10 mg/mL (1 %) Outcome: Tolerated well, no immediate complications Post-injection instructions were reviewed with the patient and the patient voiced understanding of these instructions. Informed Consent Consent Obtained: Verbal [place] Protocol A moment to CARE was completed. SIGN IN Sign in communication not applicable due to emergent procedure. Personnel directly involved with the procedure wore the appropriate PPE. Special Equipment: N/A Patient/Surrogate Stated/Verified: Patient name, Date of , Relevant allergies and Intended procedure TIME OUT Relevant labs, photos, and/or imaging studies have been reviewed. Consent documented and matches the intended procedure. Correct side/site marked and visible. Medications required for procedure verified. No fire risk assessment and interventions applicable. No implant(s) inserted. SIGN OUT No specimen collected. All instruments, equipment, possible retained foreign bodies accounted for. No post-procedure POC communication to the patient's multidisciplinary team (including the bedside nurse for hospitalized patients) applicable. AMB ROOMING INTAKE FLOWSHEET DATA Pain Pain Level: 3 Pain Location: Knee-Left Description: Dull, Aching Duration Amount of Time: (ongoing) Frequency: Intermittent Intervention/Comfort measure: Other: See comment (none) documented in this encounter [facility] 04-23-2025 Note HNO ID: [id number] Author: ARABELLA COHEN MA Service: ? Author Type: Burn Crew Member Type: Progress Notes Filed: 04/23/2025 14:40 Note Text: AMB ROOMING INTAKE FLOWSHEET DATA Pain Pain Level: 3 Pain Location: Knee-Left Description: Dull, Aching Duration Amount of Time: (ongoing) Frequency: Intermittent Intervention/Comfort measure: Other: See comment (none) [facility] 04-10-2025 Note HNO ID: [id number] Author: LIAT SMITH APRN.CNP Service: ? Author Type: Nurse Practitioner Type: Progress Notes Filed: 04/10/2025 14:24 Note Text: Xavi Cabello is a 70 year old male here for a Medicare wellness visit. Medicare Health Risk Assessment General Health Good Exercise: Minutes/Day 0 min Exercise: Days/Week 0 days Alcohol: Daily Use Never Alcohol: Drinks/Day Patient does not drink Alcohol: 6 or more drinks Never Feel off balance No Concerns: Teeth/Dentures No Concerns: Sexual function No Troubled by feelings None of the above Frequency: Eating healthy diet Nearly every day ADLs requiring help None of the above Safety precautions in home/vehicle Yes Smoke, vape, chews tobacco No Difficulty hearing No Difficulty seeing No Current Providers Specialists: I have reviewed specialist-related care of the patient in the medical record. Current care team: Patient Care Team: Grant Krause MD as PCP - Mo Parsons MD as Physician (Cardiology) Liat Smith APRN.BOB as Cover Operator (Internal Medicine) Dr. Joseph-podiatry [facility] Medical/Family history review Reviewed and updated problem list, medical/surgical/family/social history, medications, and allergies. Opioid use review Opioid Medications (last 90 days) No data to display Anxiety/Depression screening PHQ-2 Score: 0 (Lower risk for depression) MAT-2 Score: 0 Recommendation: no further intervention at this time Cognitive screening Mini Cog Score: 2 Cognitive screening reviewed and Recommended referral for further evaluation (score 0-2). Functional Observation Was the patient's Timed Up AND Go test unsteady or >= 12 seconds? No Advance Care Planning Surrogate decision maker documented and/or advance directives scanned in chart Measurements BP 126/72 Pulse 68 Resp 14 Ht 169 cm (5' 6.54) Wt 99.9 kg (220 lb 3.8 oz) SpO2 96% BMI 34.98 kg/m? Vision Screening: Follows with optometry/ophthalmology Assessment/Plan Medicare annual wellness visit, subsequent (Z00.00) - Counseled on healthy diet and regular exercise - Fall avoidance information provided - Personalized prevention plan provided - Discussed need for and benefit of weight loss. BMI 34.98 kg/(m2) Additional Concerns The following concerns were also discussed with the patient: Memory Concerns: - Reports so-so memory. - Taking an OTC memory supplement. Type 2 Diabetes Mellitus: - Last A1c: 6.2%. - Taking glipizide, Jardiance, and metformin. - Recently reduced metformin dosage from 2 tablets BID to 1 tablet BID, reporting improved symptoms. - Denies checking blood glucose levels at home. Hypertension: - Taking lisinopril and metoprolol. - Denies checking blood pressure at home. Review of Systems Constitutional: Negative for fatigue. Respiratory: Negative for cough, shortness of breath and wheezing. Cardiovascular: Negative for chest pain, palpitations and leg swelling. Objective: BP 126/72 Pulse 68 Resp 14 Ht 169 cm (5' 6.54) Wt 99.9 kg (220 lb 3.8 oz) SpO2 96% BMI 34.98 kg/m? Physical Exam Vitals reviewed. Constitutional: Appearance: Normal appearance. Cardiovascular: Rate and Rhythm: Normal rate and regular rhythm. Heart sounds: Normal heart sounds. No murmur heard. Pulmonary: Effort: Pulmonary effort is normal. Breath sounds: Normal breath sounds. No wheezing, rhonchi or rales. Skin: General: Skin is warm and dry. Neurological: Mental Status: He is alert. Psychiatric: Mood and Affect: Mood normal. DATA REVIEWED: Most recent labs Assessment/Plan: 1. Medicare annual wellness visit, subsequent (Z00.00) See medicare wellness 2. Oral dyskinesia (G24.4) Gabapentin refilled 3. Type 2 diabetes mellitus with stage 3a chronic kidney disease, without long-term current use of insulin (HCC) (E11.22) - Last HbA1c was 6.2%. - Currently managed with glipizide, Jardiance, and metformin. - Patient reduced metformin dosage to 500 mg BID due to gastrointestinal side effects; updated medication list accordingly. - Refills for gabapentin and glipizide provided. - Patient not currently monitoring blood glucose at home. 4. Cognitive deficits (R41.89) - Scored 2 out of 5 on memory test, indicating potential cognitive issues. - Referred to Dr. Aguirre, a specialist in geriatric cognitive disorders, for further evaluation. - Appointment to be scheduled in the afternoon as per patient's preference. 5. Essential hypertension (I10) - Managed with lisinopril and metoprolol. - Patient not currently monitoring blood pressure at home. 6. Encounter for screening examination for other mental health and behavioral disorders (Z13.39) 7. Screening for depression (Z13.31) - Anxiety and depression screenings scored zero, indicating no current issues. Prescription instructions reviewed with patient as applicable. Potential red (more content not included)... [facility] 04-10-2025 History of Presen t illness Narrative Images from the original note were not included. Xavi Cabello is a 70 year old male here for a Medicare wellness visit. Medicare Health Risk Assessment General Health Good Exercise: Minutes/Day 0 min Exercise: Days/Week 0 days Alcohol: Daily Use Never Alcohol: Drinks/Day Patient does not drink Alcohol: 6 or more drinks Never Feel off balance No Concerns: Teeth/Dentures No Concerns: Sexual function No Troubled by feelings None of the above Frequency: Eating healthy diet Nearly every day ADLs requiring help None of the above Safety precautions in home/vehicle Yes Smoke, vape, chews tobacco No Difficulty hearing No Difficulty seeing No Current Providers Specialists: I have reviewed specialist-related care of the patient in the medical record. Current care team: Patient Care Team: Grant Krause MD as PCP - Mo Parsons MD as Physician (Cardiology) Liat Smith APRN.BOB as Cover Operator (Internal Medicine) Dr. Joseph-podiatry [facility] Medical/Family history review Reviewed and updated problem list, medical/surgical/family/social history, medications, and allergies. Opioid use review Opioid Medications (last 90 days) No data to display Anxiety/Depression screening PHQ-2 Score: 0 (Lower risk for depression) MAT-2 Score: 0 Recommendation: no further intervention at this time Cognitive screening Mini Cog Score: 2 Cognitive screening reviewed and Recommended referral for further evaluation (score 0-2). Functional Observation Was the patient's Timed Up & Go test unsteady or >= 12 seconds? No Advance Care Planning Surrogate decision maker documented and/or advance directives scanned in chart Measurements BP 126/72 Pulse 68 Resp 14 Ht 169 cm (5' 6.54) Wt 99.9 kg (220 lb 3.8 oz) SpO2 96% BMI 34.98 kg/m Vision Screening: Follows with optometry/ophthalmology Assessment/Plan Medicare annual wellness visit, subsequent (Z00.00) - Counseled on healthy diet and regular exercise - Fall avoidance information provided - Personalized prevention plan provided - Discussed need for and benefit of weight loss. BMI 34.98 kg/(m^2) Additional Concerns The following concerns were also discussed with the patient: Memory Concerns: - Reports so-so memory. - Taking an OTC memory supplement. Type 2 Diabetes Mellitus: - Last A1c: 6.2%. - Taking glipizide, Jardiance, and metformin. - Recently reduced metformin dosage from 2 tablets BID to 1 tablet BID, reporting improved symptoms. - Denies checking blood glucose levels at home. Hypertension: - Taking lisinopril and metoprolol. - Denies checking blood pressure at home. Review of Systems Constitutional: Negative for fatigue. Respiratory: Negative for cough, shortness of breath and wheezing. Cardiovascular: Negative for chest pain, palpitations and leg swelling. Objective: BP 126/72 Pulse 68 Resp 14 Ht 169 cm (5' 6.54) Wt 99.9 kg (220 lb 3.8 oz) SpO2 96% BMI 34.98 kg/m Physical Exam Vitals reviewed. Constitutional: Appearance: Normal appearance. Cardiovascular: Rate and Rhythm: Normal rate and regular rhythm. Heart sounds: Normal heart sounds. No murmur heard. Pulmonary: Effort: Pulmonary effort is normal. Breath sounds: Normal breath sounds. No wheezing, rhonchi or rales. Skin: General: Skin is warm and dry. Neurological: Mental Status: He is alert. Psychiatric: Mood and Affect: Mood normal. DATA REVIEWED: Most recent labs Assessment/Plan: 1. Medicare annual wellness visit, subsequent (Z00.00) See medicare wellness 2. Oral dyskinesia (G24.4) Gabapentin refilled 3. Type 2 diabetes mellitus with stage 3a chronic kidney disease, without long-term current use of insulin (HCC) (E11.22) - Last HbA1c was 6.2%. - Currently managed with glipizide, Jardiance, and metformin. - Patient reduced metformin dosage to 500 mg BID due to gastrointestinal side effects; updated medication list accordingly. - Refills for gabapentin and glipizide provided. - Patient not currently monitoring blood glucose at home. 4. Cognitive deficits (R41.89) - Scored 2 out of 5 on memory test, indicating potential cognitive issues. - Referred to Dr. Aguirre, a specialist in geriatric cognitive disorders, for further evaluation. - Appointment to be scheduled in the afternoon as per patient's preference. 5. Essential hypertension (I10) - Managed with lisinopril and metoprolol. - Patient not currently monitoring blood pressure at home. 6. Encounter for screening examination for other mental health and behavioral disorders (Z13.39) 7. Screening for depression (Z13.31) - Anxiety and depression screenings scored zero, indicating no current issues. Prescription instructions reviewed with patient as applicable. Potential red flag symptoms discussed with the patient. Reviewed appropriate action plan to take if red flag symptoms occur. Patient agreeable to treatment plan. Liat Smith APRN.BRAKE MACHINE OPERATOR documented in this encounter [facility] 04-10-2025 Instructions Liat Smith APRN.BOB - 04/10/2025 2:04 PM EDT - A referral to Dr. Aguirre, a memory specialist in this building, has been made Screening schedule The following prevention plan is recommended: DTaP,Tdap,Td Vaccine(2 - Td or Tdap) due on 07/28/2017 WHAT YOU CAN DO TO PREVENT FALLS Many falls can be prevented. By making some changes, you can lower your chances of falling. Four things YOU can do to prevent falls for you* and your caregiver 1. Begin a regular exercise program Exercise is one of the most important ways to lower your chances of falling. It makes you stronger and helps you feel better. Exercises that improve balance and coordination (like Richy Chi) are the most helpful. Lack of exercise leads to weakness and increases your chances of falling. Ask your doctor or health care provider about the best type of exercise program for you. 2. Have your health care provider review your medicines Have your doctor or pharmacist review all the medicines you take, even [id number] medicines. As you get older, the way medicines work in your body can change. Some medicines, or combinations of medicines, can make you sleepy or dizzy and can cause you to fall. 3. Have your vision checked Have your eyes checked by an eye doctor at least once a year. You may be wearing the wrong glasses or have a condition like glaucoma or cataracts that limits your vision. Poor vision can increase your chances of falling. 4. Make your home safer About half of all falls happen at home. To make your home safer: Remove things you can trip over (like papers, books, clothes, and shoes) from stairs and places where you walk. Remove small throw rugs or use double-sided tape to keep the rugs from slipping. Keep items you use often in cabinets you can reach easily without using a step stool. Have grab bars put in next to your toilet and in the tub or shower. Use non-slip mats in the bathtub and on shower floors. Improve the lighting in your home. As you get older, you need brighter lights to see well. Hang light-weight curtains or shades to reduce glare. Have handrails and lights put in on all staircases. Wear shoes both inside and outside the house. Avoid going barefoot or wearing slippers. For more information, contact: Centers for Disease Control and Prevention www.cdc.gov/injury * This information may not apply if you have certain medical conditions. documented in this encounter [facility] 04-02-2025 Telephone encounter Note Prescription Refill Information The patient has been identified by name and date of : Yes Caregiver verified no other encounters exist for this prescription request: Yes Caregiver confirmed with patient/requestor that no other refills are due, in the near future, with this provider at this time: Yes The last office visit in the department: 11/02/24 Does the patient have a future office visit with this provider/department: Yes 04/10/25 Requested Prescriptions Pending Prescriptions Disp Refills sildenafil (VIAGRA) 100 mg tablet 5 tablet 5 Sig: Take 1 tablet by mouth once daily as needed. Take 30-60 minutes before sexual activity. Yara Roberson LPN April 02, 2025 4:38 PM [facility] 04-02-2025 Miscellaneous Notes Prescription Refill Information The patient has been identified by name and date of : Yes Caregiver verified no other encounters exist for this prescription request: Yes Caregiver confirmed with patient/requestor that no other refills are due, in the near future, with this provider at this time: Yes The last office visit in the department: 11/02/24 Does the patient have a future office visit with this provider/department: Yes 04/10/25 Requested Prescriptions Pending Prescriptions Disp Refills sildenafil (VIAGRA) 100 mg tablet 5 tablet 5 Sig: Take 1 tablet by mouth once daily as needed. Take 30-60 minutes before sexual activity. Yara Roberson LPN April 02, 2025 4:38 PM documented in this encounter [facility] 03-12-2025 Telephone encounter Note Prescription Refill Information The patient has been identified by name and date of : Yes Caregiver verified no other encounters exist for this prescription request: Yes Caregiver confirmed with patient/requestor that no other refills are due, in the near future, with this provider at this time: Yes The last office visit in the department: 11-02-2024 Does the patient have a future office visit with this provider/department: Yes Requested Prescriptions Pending Prescriptions Disp Refills metFORMIN (GLUCOPHAGE) 500 mg tablet 120 tablet 11 Sig: Take 2 tablets by mouth two times a day with meals. . Jovita Taylor March 12, 2025 9:21 AM [facility] Work Phone: 03-12-2025 Miscellaneous Notes Prescription Refill Information The patient has been identified by name and date of : Yes Caregiver verified no other encounters exist for this prescription request: Yes Caregiver confirmed with patient/requestor that no other refills are due, in the near future, with this provider at this time: Yes The last office visit in the department: 11-02-2024 Does the patient have a future office visit with this provider/department: Yes Requested Prescriptions Pending Prescriptions Disp Refills metFORMIN (GLUCOPHAGE) 500 mg tablet 120 tablet 11 Sig: Take 2 tablets by mouth two times a day with meals. . Jovita Taylor March 12, 2025 9:21 AM documented in this encounter [facility] 02-15-2025 Note HNO ID: [id number] Author: TITO EVANS APRN.BRAKE MACHINE OPERATOR Service: ? Author Type: Nurse Practitioner Type: Progress Notes Filed: 02/15/2025 17:39 Note Text: [facility] Follow up/ Established patient visit Date of last visit : 12/04/2024 The following Impression/Plan was copied and pasted from the patient's last [facility] visit on 12/04/24: IMPRESSION/PLAN: G47.33 ALBAN on CPAP (primary encounter diagnosis) Xavi Cabello is a 69 year old male with PMH of moderate to severe ALBAN on autoCPAP, DM2, BPH, HTN, obesity, HLD, aortic valve stenosis, CAD, dyslipidemia, cardiac stent We discussed ALBAN, PAP therapy. Answered his questions about hypoglossal nerve stimulation ([employer]). Recommend he continue PAP therapy since he tolerates it. We will look at his residual AHI when he comes in for follow up. - Continue Auto CPAP at 5-15 cmH2O. DME [employer] - Remember to clean your mask and equipment regularly, as directed. - You should be eligible for new supplies approximately every 3-6 months, depending on your insurance coverage. Contact your Durable Medical Equipment (DME) company for new supplies as needed. - Follow up in 6-8 weeks for 31-90 day PAP compliance visit Tito Evans APRN.BRAKE MACHINE OPERATOR Recording using blueKiwi software for draft documentation of the visit was discussed with the patient/authorized payable representative; all questions welcomed and answered. Patient/authorized payable representative agreed to proceed Here for follow up for ALBAN, this was scheduled for a 31-90 day PAP compliance visit for his replacement device. - Moderate to Severe Sleep Apnea - Patient is a 70-year-old male presenting with concerns about moderate sleep apnea, which becomes severe when sleeping on his back. - He was prescribed an auto CPAP with a pressure range of [address] Krause and picked it up eventually, though he does not recall the exact date. - Patient has not been able to use the new machine yet and is experiencing difficulties with its setup, particularly with adding water and starting the machine. - He prefers the old machine but acknowledges it is no longer functional. - Patient is considering the possibility of needing a hospital-based sleep study to reassess his condition. His last PSG was in 2018 and used 3% scoring. He now has Medicare. - Sleep Difficulties - Patient reports intermittent trouble sleeping. - He uses gummies from [employer] to help fall asleep, initially taking one but now takes two for better effect. - Typically goes to bed around 02:00 or 03:00 and wakes up between 11:00 and 13:00. - He wakes up 1-2 times per night, though not consistently every night. - Describes himself as a night owl and occasionally takes naps during the day. Usually sleeps on back or left side SLEEP APNEA Sleep apnea type : ALBAN, Most Recent Apnea-Hypopnea Index (AHI): 15.1 (3%) in 2018 at [facility] Treatment : PAP therapy DME: [employer] Current PAP settin-15 cm H2O. PATIENT-ENTERED QUESTIONNAIRE SLEEP SCORES 07/28/2018 09/15/2018 Insomnia Severity Index Score 11 13 07/28/2018 09/15/2018 PHQ-9 Score 2 5 04/20/2017 04/20/2017 07/28/2018 PROMIS Global Health - (T-Scores - the mean of general population = 50. Five points is a clinically meaningful difference.) Physical T-Score 42.3 42.3 42.3 Mental T-Score 43.5 43.5 45.8 ALLERGIES No Known Allergies CURRENT MEDICATIONS: empagliflozin (JARDIANCE) 25 mg tablet Take 1 tablet by mouth once daily. Take 1 tablet once daily in the morning tamsulosin (FLOMAX) 0.4 mg Take 1 capsule by mouth once daily. CPAP/BIPAP/OTHER Type .CPAPSettings into a note to see current settings/supplies/DME information. lisinopril (ZESTRIL) 10 mg tablet Take 1 tablet by mouth once daily. albuterol HFA (PROVENTIL HFA, VENTOLIN HFA) 90 mcg/actuation inhaler Inhale 2 Puffs as instructed every 6 hours as needed for wheezing/shortness of breath. glipiZIDE (GLUCOTROL XL) 2.5 mg 24 hr tablet Take 1 tablet by mouth once daily. rosuvastatin (CRESTOR) 40 mg tablet Take 1 tablet by mouth daily at bedtime. For cholesterol. gabapentin (NEURONTIN) 100 mg capsule Take 1 capsule by mouth two times a day for 180 days. nitroglycerin sublingual (NITROQUICK) 0.4 mg SL tablet Dissolve 1 tablet under the tongue as needed for chest pain. sildenafil (VIAGRA) 100 mg tablet Take 1 tablet by mouth once daily as needed. Take 30-60 minutes before sexual activity. metoprolol tartrate, short acting, (LOPRESSOR) 25 mg tablet Take 1 tablet by mouth two times a day. Fenofibrate (LOFIBRA) 160 mg tablet Take 1 tablet by mouth once daily. metFORMIN (GLUCOPHAGE) 500 mg tablet Take 2 tablets by mouth two times a day with meals. . furosemide (LASIX) 20 mg tablet Take 1 tablet by mouth once daily. From [facility]. potassium chloride (K-TAB) 10 mEq tablet Take 1 tablet by mouth daily with breakfast. From [facility]. ranolazine SR (RANEXA) 1,00 (more content not included)... [facility] 02-05-2025 Telephone encounter Note Pt states he checked with pharmacy and everything has been taken care of. Olga Rivers RN [facility] 02-05-2025 Miscellaneous Notes Pt states he checked with pharmacy and everything has been taken care of. Olga Rivers RN Patient notified, RX sent to [facility] 11/02/2024, he will check with pharmacy. Johanny Palomo LPN Prescription Refill Information The patient has been identified by name and date of : Yes Caregiver verified no other encounters exist for this prescription request: Yes Caregiver confirmed with patient/requestor that no other refills are due, in the near future, with this provider at this time: Yes The last office visit in the department: 11/02/24 Does the patient have a future office visit with this provider/department: Yes 02/06/25 Requested Prescriptions Pending Prescriptions Disp Refills tamsulosin (FLOMAX) 0.4 mg 90 capsule 3 Sig: Take 1 capsule by mouth once daily. Shefali Arias February 05, 2025 10:35 AM documented in this encounter [facility] 02-05-2025 Telephone encounter Note Patient notified, RX sent to [facility] 11/02/2024, he will check with pharmacy. Johanny Palomo LPN [facility] 02-05-2025 Telephone encounter Note Prescription Refill Information The patient has been identified by name and date of : Yes Caregiver verified no other encounters exist for this prescription request: Yes Caregiver confirmed with patient/requestor that no other refills are due, in the near future, with this provider at this time: Yes The last office visit in the department: 11/02/24 Does the patient have a future office visit with this provider/department: Yes 02/06/25 Requested Prescriptions Pending Prescriptions Disp Refills tamsulosin (FLOMAX) 0.4 mg 90 capsule 3 Sig: Take 1 capsule by mouth once daily. Shefali Arias February 05, 2025 10:35 AM [facility] 01-15-2025 Note HNO ID: [id number] Author: NILDA KIM PA-C Service: ? Author Type: Physician Fishing Line Winding Machine Operator Type: Progress Notes Filed: 01/15/2025 13:43 Note Text: Large Joint Arthro/Inj: L knee joint 01/15/2025 1:43 PM The procedure site was prepped in the usual sterile fashion. Site: L knee joint Medications: 6 mg betamethasone acetate-betamethasone sodium phosphate 6 mg/mL Anesthetics: 5 mL lidocaine (PF) 10 mg/mL (1 %) Outcome: Tolerated well, no immediate complications Post-injection instructions were reviewed with the patient and the patient voiced understanding of these instructions. Informed Consent Consent Obtained: Verbal [place] Protocol A moment to CARE was completed. SIGN IN Sign in communication not applicable due to emergent procedure. Personnel directly involved with the procedure wore the appropriate PPE. Special Equipment: N/A Patient/Surrogate Stated/Verified: Patient name, Date of , Relevant allergies and Intended procedure TIME OUT Relevant labs, photos, and/or imaging studies have been reviewed. Consent documented and matches the intended procedure. Correct side/site marked and visible. Medications required for procedure verified. No fire risk assessment and interventions applicable. No implant(s) inserted. SIGN OUT No specimen collected. All instruments, equipment, possible retained foreign bodies accounted for. No post-procedure POC communication to the patient's multidisciplinary team (including the bedside nurse for hospitalized patients) applicable. [facility] 01-15-2025 History of Presen t illness Narrative Associated Order(s): Large Joint Arthro/Inj: L knee joint Post-Procedure Diagnose(s): Primary osteoarthritis of left knee Large Joint Arthro/Inj: L knee joint 01/15/2025 1:43 PM The procedure site was prepped in the usual sterile fashion. Site: L knee joint Medications: 6 mg betamethasone acetate-betamethasone sodium phosphate 6 mg/mL Anesthetics: 5 mL lidocaine (PF) 10 mg/mL (1 %) Outcome: Tolerated well, no immediate complications Post-injection instructions were reviewed with the patient and the patient voiced understanding of these instructions. Informed Consent Consent Obtained: Verbal [place] Protocol A moment to CARE was completed. SIGN IN Sign in communication not applicable due to emergent procedure. Personnel directly involved with the procedure wore the appropriate PPE. Special Equipment: N/A Patient/Surrogate Stated/Verified: Patient name, Date of , Relevant allergies and Intended procedure TIME OUT Relevant labs, photos, and/or imaging studies have been reviewed. Consent documented and matches the intended procedure. Correct side/site marked and visible. Medications required for procedure verified. No fire risk assessment and interventions applicable. No implant(s) inserted. SIGN OUT No specimen collected. All instruments, equipment, possible retained foreign bodies accounted for. No post-procedure POC communication to the patient's multidisciplinary team (including the bedside nurse for hospitalized patients) applicable. AMB ROOMING INTAKE FLOWSHEET DATA Pain Pain Level: 3 Pain Location: Knee-Left Description: Aching Duration Amount of Time: (ongoing) Frequency: Continuous Intervention/Comfort measure: Other: See comment (none) 14 weeks post visit OA left knee with injection given. He got good relief and would like a repeat injection. documented in this encounter [facility] 01-15-2025 Note HNO ID: [id number] Author: ARABELLA COHEN MA Service: ? Author Type: Burn Crew Member Type: Progress Notes Filed: 01/15/2025 13:43 Note Text: AMB ROOMING INTAKE FLOWSHEET DATA Pain Pain Level: 3 Pain Location: Knee-Left Description: Aching Duration Amount of Time: (ongoing) Frequency: Continuous Intervention/Comfort measure: Other: See comment (none) 14 weeks post visit OA left knee with injection given. He got good relief and would like a repeat injection. [facility] 12-04-2024 History of Presen t illness Narrative Images from the original note were not included. [facility] New Patient Evaluation PATIENT NAME: Xavi Cabello DATE OF SERVICE: December 03, 2024 CONSULTING PROVIDER: Grant Krause [id number] [facility] [id number] REASON FOR CONSULT: Grant Krause sends the patient for an opinion about ALBAN. My findings and recommendations will be transmitted electronically via shared medical record to the consulting provider. HPI: Xavi Cabello is a 69 year old male. Sleep-related history: moderate ALBAN, exacerbated to severe in supine sleep, Dr Krause wrote a prescription for a replacement autoCPAP 5-15 cmH2O, pt says he is picking it up from [facility] today. He says he uses his CPAP nightly, except for the last month when his machine quit working. No marijuana or alcohol for 2 yrs SLEEP-WAKE SCHEDULE Bedtime: 2-3 AM. He does not have a hard time falling asleep. Takes a gummy to help him sleep (gets at [employer], doesn't know the ingredients). Wake time: 11 AM to 1 PM After falling asleep: he wakes up 1-2 time(s) per night, because of the need to urinate. On weekends, he maintains the same sleep schedule. Average total sleep time (in a 24 hour period): 8-10 hours. SLEEP-RELATED DETAILS Preferred sleep position: side or back Breathing disturbances and other behaviors during sleep: probably snores. GERD or aspiration: No Waking up with heart pounding or racing: No Anxiety or rumination: No He does not report having an urge to move the legs in the evening (when resting) that is accompanied or caused by uncomfortable and/or unpleasant sensations in the legs. He has not been told that he has leg kicking during sleep. He denies any history of parasomnias. Daytime sleepiness is not a problem. He does not report sleep paralysis but has had sleep-related hallucinations WAKE-RELATED DETAILS He does not work. He does have difficulty with memory or concentration. He denies falling asleep or dozing off when driving. He does not take naps. He does not drink caffeinated beverages. There has not been a recent change in weight. Patient Questionnaires Sleep Scores 09/15/2018 Insomnia Severity Index Score 13 09/15/2018 PHQ-9 Score 5 07/28/2018 PROMIS Global Health - (T-Scores - the mean of general population = 50. Five points is a clinically meaningful difference.) Physical T-Score 42.3 Mental T-Score 45.8 PAST TREATMENTS: AutoPAP 5-15 cmH2O PRIOR SLEEP STUDIES: 08/30/2018 PSG at [facility]: AHI 15.1, supine 33.0 PAST MEDICAL HISTORY Diagnosis Date Alcohol abuse 03/05/2012 Arthritis Asthma BPH with obstruction/lower urinary tract symptoms 12/11/2015 CAD (coronary artery disease), [place] coronary artery 03/05/2012 COPD (chronic obstructive pulmonary disease) ([facility]) COVID-19 04/24/2022 Hypertension Hypertrophy of prostate without urinary obstruction and other lower urinary tract symptoms (LUTS) 07/28/2007 Left knee pain Marijuana use Nocturnal hypoxia 10/06/2017 Obesity (BMI 30-39.9) Obstructive sleep apnea 10/06/2017 DME [employer] Other and unspecified hyperlipidemia Stented coronary artery 03/08/2012 Tubular adenoma of colon 08/03/2012 Type 2 diabetes mellitus with stage 3a chronic kidney disease, without long-term current use of insulin ([facility]) 09/26/2022 Type II or unspecified type diabetes mellitus without mention of complication, not stated as uncontrolled 09/05/2007 Unstable angina (HCC) 07/28/2013 PAST SURGICAL HISTORY Procedure Laterality Date COLONOSCOPY 09/23/2022 poor bowel prep-repeat in 1 year COLONOSCOPY 08/25/2023 repeat 5 years COLONOSCOPY FLX DX W/COLLJ SPEC WHEN PFRMD 08/03/2012 Colonoscopy COLONOSCOPY FLX DX W/COLLJ SPEC WHEN PFRMD 12/16/2016 Colonoscopy mac EYE SURGERY HX HERNIA REPAIR HX LEFT HEART CATH,PERCUTANEOUS 07/31/2013 Cardiac cath, L heart LEFT HEART CATH,PERCUTANEOUS 07/23/2015 Cardiac cath, L heart PAST SURGICAL HISTORY OF 1968 circumcision PAST SURGICAL HISTORY OF Left 1968 eye surgery left eye only PAST SURGICAL HISTORY OF 03/24/2004 Umbilical hernia repair TONSILLECTOMY & ADENOIDECTOMY <AGE 10 1958 TONSILLECTOMY HX TRANSCATH STENT INIT VESSEL,PERCUT 03/07/2012 Transcath stent init vessel percut ACTIVE PROBLEM LIST Mixed Hyperlipidemia Type 2 Diabetes Mellitus With Stage 3a Chronic Kidney Disease, Without Long-Term Current Use of Insulin ([facility]) Cad (Coronary Artery Disease), [place] Coronary Artery Stented Coronary Artery Bph With Obstruction/Lower Urinary Tract Symptoms Marijuana Use Essential Hypertension Male Erectile Dysfunction, Unspecified Tubular Adenoma of Colon [place] On Cpap Nocturnal Hypoxia Bronchitis With Bronchospasm Erectile Dysfunction Tinnitus Oral Dyskinesia Primary Osteoarthritis of Left Knee Obesity, Class II, Bmi 35-39.9 History of Colonic Polyps Allergies As of Date: 12/04/2024 (No Known Allergies) Fully Assessed 12/04/2024 CURRENT MEDICATIONS: empagliflozin (JARDIANCE) 25 mg tablet Take 1 tablet by mouth once daily. Take 1 tablet once daily in the morning tamsulosin (FLOMAX) 0.4 mg Take 1 capsule by mouth once daily. lisinopril (ZESTRIL) 10 mg tablet Take 1 tablet by mouth once daily. albuterol HFA (PROVENTIL HFA, VENTOLIN HFA) 90 mcg/actuation inhaler Inhale 2 Puffs as instructed every 6 hours as needed for wheezing/shortness of breath. glipiZIDE (GLUCOTROL XL) 2.5 mg 24 hr tablet Take 1 tablet by mouth once daily. rosuvastatin (CRESTOR) 40 mg tablet Take 1 tablet by mouth daily at bedtime. For cholesterol. gabapentin (NEURONTIN) 100 mg capsule Take 1 capsule by mouth two times a day for 180 days. nitroglycerin sublingual (NITROQUICK) 0.4 mg SL tablet Dissolve 1 tablet under the tongue as needed for chest pain. sildenafil (VIAGRA) 100 mg tablet Take 1 tablet by mouth once daily as needed. Take 30-60 minutes before sexual activity. metoprolol tartrate, short acting, (LOPRESSOR) 25 mg tablet Take 1 tablet by mouth two times a day. Fenofibrate (LOFIBRA) 160 mg tablet Take 1 tablet by mouth once daily. metFORMIN (GLUCOPHAGE) 500 mg tablet Take 2 tablets by mouth two times a day with meals. . furosemide (LASIX) 20 mg tablet Take 1 tablet by mouth once daily. From [facility]. potassium chloride (K-TAB) 10 mEq tablet Take 1 tablet by mouth daily with breakfast. From [facility]. ranolazine SR (RANEXA) 1,000 mg tab ER 12 hr Take 1 tablet by mouth twice daily. Per CARDIOLOGY. aspirin, enteric coated (ECOTRIN LOW STRENGTH) 81 mg EC tablet Take 1 tablet by mouth once daily. CPAP/BIPAP/OTHER Type .CPAPSettings into a note to see current settings/supplies/DME information. Review of Systems Constitutional: Negative for fatigue and recent unintentional weight change. Cardiovascular: Negative for palpitations. Gastrointestinal: Negative for heartburn. Genitourinary: Positive for nocturia. Neurological: Negative for headaches. SOCIAL HISTORY: Social History Tobacco Use Smoking status: Never Smokeless tobacco: Never Vaping Use Vaping status: Never Used Substance Use Topics Alcohol use: Not Currently Comment: sober over year Drug use: Not Currently Types: Marijuana Comment: sober over year FAMILY HISTORY: FAMILY HISTORY Problem Relation Age of Onset Heart Father of [place] approximately age 40s COPD Mother Diabetes Mother Hypertension Mother Arthritis Brother Diabetes Sister There is no family history of sleep disorders. PHYSICAL EXAMINATION: Vital Signs: BP 103/72 (BP Position: Sitting) Pulse 74 Resp 18 Wt 100.9 kg (222 lb 6.4 oz) SpO2 93% BMI 35.63 kg/m PHYSICAL EXAM: General appearance: pleasant, NAD Mental status: alert and oriented, able to provide own history Constitutional: obese Skin: No visible rashes on exposed skin Neuro: No focal deficits observed, no tremors IMPRESSION/PLAN: G47.33 ALBAN on CPAP (primary encounter diagnosis) Xavi Cabello is a 69 year old male with PMH of moderate to severe ALBAN on autoCPAP, DM2, BPH, HTN, obesity, HLD, aortic valve stenosis, CAD, dyslipidemia, cardiac stent We discussed ALBAN, PAP therapy. Answered his questions about hypoglossal nerve stimulation ([employer]). Recommend he continue PAP therapy since he tolerates it. We will look at his residual AHI when he comes in for follow up. - Continue Auto CPAP at 5-15 cmH2O. DME [employer] - Remember to clean your mask and equipment regularly, as directed. - You should be eligible for new supplies approximately every 3-6 months, depending on your insurance coverage. Contact your Durable Medical Equipment (DME) company for new supplies as needed. - Follow up in 6-8 weeks for 31-90 day PAP compliance visit Tito Evans APRN.BOB documented in this encounter [facility] 12-04-2024 Note HNO ID: [id number] Author: TITO EVANS APRN.CNP Service: ? Author Type: Nurse Practitioner Type: Progress Notes Filed: 12/04/2024 15:06 Note Text: [facility] New Patient Evaluation PATIENT NAME: Xavi Cabello DATE OF SERVICE: December 03, 2024 CONSULTING PROVIDER: Grant Krause [id number] [facility] [address] REASON FOR CONSULT: Grant Krause sends the patient for an opinion about ALBAN. My findings and recommendations will be transmitted electronically via shared medical record to the consulting provider. HPI: Xavi Cabello is a 69 year old male. Sleep-related history: moderate ALBAN, exacerbated to severe in supine sleep, Dr Krause wrote a prescription for a replacement autoCPAP 5-15 cmH2O, pt says he is picking it up from [employer] today. He says he uses his CPAP nightly, except for the last month when his machine quit working. No marijuana or alcohol for 2 yrs SLEEP-WAKE SCHEDULE Bedtime: 2-3 AM. He does not have a hard time falling asleep. Takes a gummy to help him sleep (gets at [employer], doesn't know the ingredients). Wake time: 11 AM to 1 PM After falling asleep: he wakes up 1-2 time(s) per night, because of the need to urinate. On weekends, he maintains the same sleep schedule. Average total sleep time (in a 24 hour period): 8-10 hours. SLEEP-RELATED DETAILS Preferred sleep position: side or back Breathing disturbances and other behaviors during sleep: probably snores. GERD or aspiration: No Waking up with heart pounding or racing: No Anxiety or rumination: No He does not report having an urge to move the legs in the evening (when resting) that is accompanied or caused by uncomfortable and/or unpleasant sensations in the legs. He has not been told that he has leg kicking during sleep. He denies any history of parasomnias. Daytime sleepiness is not a problem. He does not report sleep paralysis but has had sleep-related hallucinations WAKE-RELATED DETAILS He does not work. He does have difficulty with memory or concentration. He denies falling asleep or dozing off when driving. He does not take naps. He does not drink caffeinated beverages. There has not been a recent change in weight. Patient Questionnaires Sleep Scores 09/15/2018 Insomnia Severity Index Score 13 09/15/2018 PHQ-9 Score 5 07/28/2018 PROMIS Global Health - (T-Scores - the mean of general population = 50. Five points is a clinically meaningful difference.) Physical T-Score 42.3 Mental T-Score 45.8 PAST TREATMENTS: AutoPAP 5-15 cmH2O PRIOR SLEEP STUDIES: 08/30/2018 PSG at [facility]: AHI 15.1, supine 33.0 PAST MEDICAL HISTORY Diagnosis Date Alcohol abuse 03/05/2012 Arthritis Asthma BPH with obstruction/lower urinary tract symptoms 12/11/2015 CAD (coronary artery disease), [place] coronary artery 03/05/2012 COPD (chronic obstructive pulmonary disease) (HCC) COVID-19 04/24/2022 Hypertension Hypertrophy of prostate without urinary obstruction and other lower urinary tract symptoms (LUTS) 07/28/2007 Left knee pain Marijuana use Nocturnal hypoxia 10/06/2017 Obesity (BMI 30-39.9) Obstructive sleep apnea 10/06/2017 DME [employer] Other and unspecified hyperlipidemia Stented coronary artery 03/08/2012 Tubular adenoma of colon 08/03/2012 Type 2 diabetes mellitus with stage 3a chronic kidney disease, without long-term current use of insulin ([facility]) 09/26/2022 Type II or unspecified type diabetes mellitus without mention of complication, not stated as uncontrolled 09/05/2007 Unstable angina ([facility]) 07/28/2013 PAST SURGICAL HISTORY Procedure Laterality Date COLONOSCOPY 09/23/2022 poor bowel prep-repeat in 1 year COLONOSCOPY 08/25/2023 repeat 5 years COLONOSCOPY FLX DX W/COLLJ SPEC WHEN PFRMD 08/03/2012 Colonoscopy COLONOSCOPY FLX DX W/COLLJ SPEC WHEN PFRMD 12/16/2016 Colonoscopy mac EYE SURGERY HX HERNIA REPAIR HX LEFT HEART CATH,PERCUTANEOUS 07/31/2013 Cardiac cath, L heart LEFT HEART CATH,PERCUTANEOUS 07/23/2015 Cardiac cath, L heart PAST SURGICAL HISTORY OF 1968 circumcision PAST SURGICAL HISTORY OF Left 1968 eye surgery left eye only PAST SURGICAL HISTORY OF 03/24/2004 Umbilical hernia repair TONSILLECTOMY AND ADENOIDECTOMY TONSILLECTOMY HX TRANSCATH STENT INIT VESSEL,PERCUT 03/07/2012 Transcath stent init vessel percut ACTIVE PROBLEM LIST Mixed Hyperlipidemia Type 2 Diabetes Mellitus With Stage 3a Chronic Kidney Disease, Without Long-Term Current Use of Insulin ([facility]) Cad (Coronary Artery Disease), [place] Coronary Artery Stented Coronary Artery Bph With Obstruction/Lower Urinary Tract Symptoms Marijuana Use Essential Hypertension Male Erectile Dysfunction, Unspecified Tubular Adenoma of Colon [place] On Cpap Nocturnal Hypoxia Bronchitis With Bronchospasm Erectile Dysfunction Tinnitus Oral Dyskinesia Primary Osteoarthritis of Left Knee Obesity, C (more content not included)... [facility] 11-28-2024 Note HNO ID: [id number] Author: MARGARITO JOSEPH, ? Service: ? Author Type: Physician Type: Progress Notes Filed: 11/28/2024 14:39 Note Text: Last saw pcp: 10/09/24 Subjective: Patient presents to clinic c/o painful toenails. They state that the nails are especially painful with shoe gear and pressure. Patient states that nails 1-5 b/l are painful. Patient admits to being diabetic. No other pedal complaints at this time. Patient states no change in medications or medical history since last visit. Objective: Patient presents to clinic ambulating in [facility] Vasc: DP and PT pulses are palpable bilateral. CFT is less than 5 seconds bilateral. Skin temperature is warm to cool proximal to distal bilateral. There is mild edema or varicosities noted. Neuro: Protective sensation is intact to the foot and toes when tested with the 5.07 SWM bilateral. Vibratory sensation is absent at the hallux IPJ bilateral. The hallux is downgoing bilateral. Derm: Nails 1-5 b/l are painful, discolored-yellow, thick, crumbly, dystrophic and with subungal debris. Skin is of normal turgor, texture and hair growth is present bilateral. There are no hyperkeratosis, ulcerations, scars, verruca or other lesions noted. Ortho: Muscle strength is 5/5 for all pedal groups tested. Ankle joint DF is full with the knee extended with no pain or crepitus noted. 1st MPJ ROM is decreased bilateral. Large bunion is present to b/l feet. Assessment: (B35.1) Onychomycosis (primary encounter diagnosis) (M79.675) Pain in toe of left foot (M79.674) Pain in toe of right foot (E11.42) Diabetic polyneuropathy associated with type 2 diabetes mellitus (HCC) Hallux valgus Plan: Patient was seen and evaluated. Nails 1-5 bilateral were debrided in length and thickness. Patient was instructed on the continued importance of diabetic foot care along with proper diet and keeping their blood sugar under control to prevent complicationsI stressed the importance of avoiding barefoot walking, wearing good shoes and inspection of feet. I discussed how this patient suffers from neuropathy and that it is important that she monitor for any open wounds. If she develops any issues, she is to contact our office immediately and we will have them seen. Discussed bunions. Continue with wider shoes. Patient is to RTC in 3-4 months. Margarito Joseph DPM [facility] 11-28-2024 History of Presen t illness Narrative Last saw pcp: 10/09/24 Subjective: Patient presents to clinic c/o painful toenails. They state that the nails are especially painful with shoe gear and pressure. Patient states that nails 1-5 b/l are painful. Patient admits to being diabetic. No other pedal complaints at this time. Patient states no change in medications or medical history since last visit. Objective: Patient presents to clinic ambulating in eaker Vasc: DP and PT pulses are palpable bilateral. CFT is less than 5 seconds bilateral. Skin temperature is warm to cool proximal to distal bilateral. There is mild edema or varicosities noted. Neuro: Protective sensation is intact to the foot and toes when tested with the 5.07 SWM bilateral. Vibratory sensation is absent at the hallux IPJ bilateral. The hallux is downgoing bilateral. Derm: Nails 1-5 b/l are painful, discolored-yellow, thick, crumbly, dystrophic and with subungal debris. Skin is of normal turgor, texture and hair growth is present bilateral. There are no hyperkeratosis, ulcerations, scars, verruca or other lesions noted. Ortho: Muscle strength is 5/5 for all pedal groups tested. Ankle joint DF is full with the knee extended with no pain or crepitus noted. 1st MPJ ROM is decreased bilateral. Large bunion is present to b/l feet. Assessment: (B35.1) Onychomycosis (primary encounter diagnosis) (M79.675) Pain in toe of left foot (M79.674) Pain in toe of right foot (E11.42) Diabetic polyneuropathy associated with type 2 diabetes mellitus (HCC) Hallux valgus Plan: Patient was seen and evaluated. Nails 1-5 bilateral were debrided in length and thickness. Patient was instructed on the continued importance of diabetic foot care along with proper diet and keeping their blood sugar under control to prevent complicationsI stressed the importance of avoiding barefoot walking, wearing good shoes and inspection of feet. I discussed how this patient suffers from neuropathy and that it is important that she monitor for any open wounds. If she develops any issues, she is to contact our office immediately and we will have them seen. Discussed bunions. Continue with wider shoes. Patient is to RTC in 3-4 months. Margarito Joseph DPM AMB ROOMING INTAKE FLOWSHEET DATA Patient presents with: Left Foot - Established Patient, Diabetic Foot Care Right Foot - Established Patient, Diabetic Foot Care Lupis Ramirez LPN documented in this encounter [facility] 11-28-2024 Instructions Margarito Joseph - 11/28/2024 2:26 PM EST Diabetes Foot Care Instructions When you have diabetes, proper foot care is very important. Poor foot care may lead to amputation of a foot or leg. As a person with diabetes, you are more vulnerable to foot problems, because diabetes can damage your nerves and reduce blood flow to your feet. Here are some diabetes foot care tips to follow: Wash and Dry Your Feet Daily Use mild soaps Use warm water Pat your skin dry; do not rub. Thoroughly dry your feet. After washing, use lotion on your feet to prevent cracking. Do not put lotion between your toes. Examine Your Feet Each Day Check the tops and bottoms of your feet. Have someone else look at your feet if you cannot see them. Check for dry, cracked skin. Look for blisters, cuts, scratches, or other sores. Check for redness, increased warmth, or tenderness when touching any area of your feet. Check for ingrown toenails, corns, and calluses. If you get a blister or sore from your shoes, do not pop it. Apply a bandage and wear a different pair of shoes. Take Care of Your Toenails Cut toenails after bathing, when they are soft. Cut toenails straight across and smooth with a nail file. Avoid cutting into the corners of toes. Do not cut cuticles. If you have neuropathy (or decreased sensation in your feet) a director data processing should always cut your toenails. Be Careful When Exercising Walk and exercise in comfortable shoes. Do not exercise when you have open sores on your feet. Protect Your Feet With Shoes and Socks Never go barefoot. Always protect your feet by wearing shoes or hard-soled slippers or footwear. Avoid shoes with high heels and pointed toes. Avoid shoes that expose your toes or heels (such as open-toed shoes or sandals). These types of shoes increase your risk for injury and potential infections. Try on new footwear with the type of socks you usually wear. Do not wear new shoes for more than an hour at a time. Change your socks daily. Look and feel inside your shoes before putting them on to make sure there are no foreign objects or rough areas. Avoid tight socks. Wear natural-fiber socks (cotton, wool, or a cotton-wool blend). Wear special shoes if your health care provider recommends them. Wear shoes/boots that will protect your feet from various weather conditions (cold, moisture, etc.). Make sure your shoes fit properly. If you have neuropathy (nerve damage), you may not notice that your shoes are too tight. Perform the footwear test described below. Footwear Test Use this simple test to see if your shoes fit correctly: Stand on a piece of paper. (Make sure you are standing and not sitting, because your foot changes shape when you stand.) Trace the outline of your foot. Trace the outline of your shoe. Compare the tracings: Is the shoe too narrow? Is your foot crammed into the shoe? The shoe should be at least 1/2 inch longer than your longest toe and as wide as your foot. Proper Shoe Choices The following types of shoes are best for people with diabetes Closed toes and heels Leather uppers without a seam inside At least 1/2 inch extra space at the end of your longest toe Inside of shoe should be soft with no rough areas Outer sole should be made of stiff material Shoes should be at least as wide as your feet Tips for Foot Care in Diabetes Don't wait to treat a minor foot problem if you have diabetes. Follow your health care provider's guidelines and first aid guidelines. Report foot injuries and infections to your health care provider immediately. Check water temperature with your elbow, not your foot. Do not use a heating pad on your feet. Do not cross your legs. Do not self-treat your corns, calluses, or other foot problems. Go to your health care provider or director data processing to treat these conditions. documented in this encounter [facility] 11-28-2024 Note HNO ID: [id number] Author: LUPIS RAMIREZ LPN Service: ? Author Type: LICENSED NURSE Type: Progress Notes Filed: 11/28/2024 14:39 Note Text: AMB ROOMING INTAKE FLOWSHEET DATA Patient presents with: Left Foot - Established Patient, Diabetic Foot Care Right Foot - Established Patient, Diabetic Foot Care Lupis Ramirez LPN [facility] 11-09-2024 Telephone encounter Note Patient is rescheduled for 11/28/2024. Lupis Ramirez LPN [facility] Work Phone: 11-09-2024 Miscellaneous Notes Patient is rescheduled for 11/28/2024. Lupis Ramirez LPN Patient calling with influenza-like symptoms. Would like to reschedule his appointment this afternoon to next week if possible? He prefers afternoons. He is reachable at [phone]. Martha Meza LPN documented in this encounter [facility] 11-09-2024 Telephone encounter Note Patient calling with influenza-like symptoms. Would like to reschedule his appointment this afternoon to next week if possible? He prefers afternoons. He is reachable at [phone]. Martha Meza LPN [facility] 11-02-2024 Note HNO ID: [id number] Author: GRANT KRAUSE MD Service: ? Author Type: Physician Type: Progress Notes Filed: 11/02/2024 15:17 Note Text: This note was created using [employer]. Subjective Patient presents with: Equipment Question: New CPAP Xavi Cabello is a 69 year old male. His CPAP malfunctioned 3 weeks ago. His supplier suggested he get a new machine (~7 yrs old). He was scheduled with sleep medicine but not till next month. He had been using this nightly with benefit. His insurance apparently changed so he will need to go to a new DME supplier. Review of Systems Constitutional: Negative for fatigue. Respiratory: Negative for chest tightness and shortness of breath. Cardiovascular: Negative for chest pain. Neurological: Negative for dizziness and headaches. Psychiatric/Behavioral: Negative for sleep disturbance. ACTIVE PROBLEM LIST Mixed Hyperlipidemia Type 2 Diabetes Mellitus With Stage 3a Chronic Kidney Disease, Without Long-Term Current Use of Insulin (Hcc) Cad (Coronary Artery Disease), [place] Coronary Artery Stented Coronary Artery Bph With Obstruction/Lower Urinary Tract Symptoms Marijuana Use Essential Hypertension Male Erectile Dysfunction, Unspecified Tubular Adenoma of Colon [place] On Cpap Nocturnal Hypoxia Bronchitis With Bronchospasm Erectile Dysfunction Tinnitus Oral Dyskinesia Primary Osteoarthritis of Left Knee Obesity, Class II, Bmi 35-39.9 History of Colonic Polyps Current Outpatient Medications Medication Sig lisinopril (ZESTRIL) 10 mg tablet Take 1 tablet by mouth once daily. albuterol HFA (PROVENTIL HFA, VENTOLIN HFA) 90 mcg/actuation inhaler Inhale 2 Puffs as instructed every 6 hours as needed for wheezing/shortness of breath. glipiZIDE (GLUCOTROL XL) 2.5 mg 24 hr tablet Take 1 tablet by mouth once daily. rosuvastatin (CRESTOR) 40 mg tablet Take 1 tablet by mouth daily at bedtime. For cholesterol. gabapentin (NEURONTIN) 100 mg capsule Take 1 capsule by mouth two times a day for 180 days. nitroglycerin sublingual (NITROQUICK) 0.4 mg SL tablet Dissolve 1 tablet under the tongue as needed for chest pain. sildenafil (VIAGRA) 100 mg tablet Take 1 tablet by mouth once daily as needed. Take 30-60 minutes before sexual activity. metoprolol tartrate, short acting, (LOPRESSOR) 25 mg tablet Take 1 tablet by mouth two times a day. Fenofibrate (LOFIBRA) 160 mg tablet Take 1 tablet by mouth once daily. metFORMIN (GLUCOPHAGE) 500 mg tablet Take 2 tablets by mouth two times a day with meals. . furosemide (LASIX) 20 mg tablet Take 1 tablet by mouth once daily. From [facility]. potassium chloride (K-TAB) 10 mEq tablet Take 1 tablet by mouth daily with breakfast. From [facility]. ranolazine SR (RANEXA) 1,000 mg tab ER 12 hr Take 1 tablet by mouth twice daily. Per CARDIOLOGY. CPAP Settings 5 - 15 cm H2O, suitable mask per pt preference, chin strap, head gear, humidity, tubing, lifetime supplies. G47.33 Obstructive Sleep Apnea aspirin, enteric coated (ECOTRIN LOW STRENGTH) 81 mg EC tablet Take 1 tablet by mouth once daily. empagliflozin (JARDIANCE) 25 mg tablet Take 1 tablet by mouth once daily. Take 1 tablet once daily in the morning tamsulosin (FLOMAX) 0.4 mg Take 1 capsule by mouth once daily. CPAP/BIPAP/OTHER Type .CPAPSettings into a note to see current settings/supplies/DME information. No current facility-administered medications for this visit. Objective BP 110/66 (BP Site: Left Arm, BP Position: Sitting, BP Cuff Size: Large Adult) Pulse 76 Temp 36.8 ?C (98.3 ?F) (Temporal) Resp 16 Wt 101.4 kg (223 lb 8.7 oz) BMI 35.81 kg/m? Physical Exam Constitutional: General: He is not in acute distress. Appearance: He is not ill-appearing. HENT: Nose: No congestion or rhinorrhea. Mouth/Throat: Mouth: Mucous membranes are moist. Pharynx: Oropharynx is clear. Cardiovascular: Heart sounds: Normal heart sounds. Pulmonary: Breath sounds: Normal breath sounds. Neurological: Mental Status: He is alert. 11/02/2024 [place] People tell me that I snore No I wake up at night with shortness of breath or choking No People tell me I gasp, choke or snort while sleeping No People tell me that I stop breathing when sleeping No Feel almost as/more tired after waking No Often wake with headache No Often have difficulty breathing thru nose No I fight sleepiness during the day No I fall asleep when relaxing before/after dinner No Friends,colleagues, family comment on my sleep No Sitting and reading 0 - Never Watching TV 2 - Moderate Chance Sitting/inactive in public place 0 - Never Car for an hour without break 0 - Never Lying down for rest (afternoon) 2 - Moderate Chance Sitting and talking to someone 0 - Never Sitting quietly after lunch (no alcohol) 0 - Never In car, stopped in traffic 0 - Never Have high BP history? Yes Have history of CHF? No Assessment and Plan 1. ALBAN on CP (more content not included)... [facility] 11-02-2024 History of Presen t illness Narrative This note was created using [employer]. Subjective Patient presents with: Equipment Question: New CPAP Xavi Cabello is a 69 year old male. His CPAP malfunctioned 3 weeks ago. His supplier suggested he get a new machine (~7 yrs old). He was scheduled with sleep medicine but not till next month. He had been using this nightly with benefit. His insurance apparently changed so he will need to go to a new DME supplier. Review of Systems Constitutional: Negative for fatigue. Respiratory: Negative for chest tightness and shortness of breath. Cardiovascular: Negative for chest pain. Neurological: Negative for dizziness and headaches. Psychiatric/Behavioral: Negative for sleep disturbance. ACTIVE PROBLEM LIST Mixed Hyperlipidemia Type 2 Diabetes Mellitus With Stage 3a Chronic Kidney Disease, Without Long-Term Current Use of Insulin (Hcc) Cad (Coronary Artery Disease), [place] Coronary Artery Stented Coronary Artery Bph With Obstruction/Lower Urinary Tract Symptoms Marijuana Use Essential Hypertension Male Erectile Dysfunction, Unspecified Tubular Adenoma of Colon [place] On Cpap Nocturnal Hypoxia Bronchitis With Bronchospasm Erectile Dysfunction Tinnitus Oral Dyskinesia Primary Osteoarthritis of Left Knee Obesity, Class II, Bmi 35-39.9 History of Colonic Polyps Current Outpatient Medications Medication Sig lisinopril (ZESTRIL) 10 mg tablet Take 1 tablet by mouth once daily. albuterol HFA (PROVENTIL HFA, VENTOLIN HFA) 90 mcg/actuation inhaler Inhale 2 Puffs as instructed every 6 hours as needed for wheezing/shortness of breath. glipiZIDE (GLUCOTROL XL) 2.5 mg 24 hr tablet Take 1 tablet by mouth once daily. rosuvastatin (CRESTOR) 40 mg tablet Take 1 tablet by mouth daily at bedtime. For cholesterol. gabapentin (NEURONTIN) 100 mg capsule Take 1 capsule by mouth two times a day for 180 days. nitroglycerin sublingual (NITROQUICK) 0.4 mg SL tablet Dissolve 1 tablet under the tongue as needed for chest pain. sildenafil (VIAGRA) 100 mg tablet Take 1 tablet by mouth once daily as needed. Take 30-60 minutes before sexual activity. metoprolol tartrate, short acting, (LOPRESSOR) 25 mg tablet Take 1 tablet by mouth two times a day. Fenofibrate (LOFIBRA) 160 mg tablet Take 1 tablet by mouth once daily. metFORMIN (GLUCOPHAGE) 500 mg tablet Take 2 tablets by mouth two times a day with meals. . furosemide (LASIX) 20 mg tablet Take 1 tablet by mouth once daily. From [facility]. potassium chloride (K-TAB) 10 mEq tablet Take 1 tablet by mouth daily with breakfast. From [facility]. ranolazine SR (RANEXA) 1,000 mg tab ER 12 hr Take 1 tablet by mouth twice daily. Per CARDIOLOGY. CPAP Settings 5 - 15 cm H2O, suitable mask per pt preference, chin strap, head gear, humidity, tubing, lifetime supplies. G47.33 Obstructive Sleep Apnea aspirin, enteric coated (ECOTRIN LOW STRENGTH) 81 mg EC tablet Take 1 tablet by mouth once daily. empagliflozin (JARDIANCE) 25 mg tablet Take 1 tablet by mouth once daily. Take 1 tablet once daily in the morning tamsulosin (FLOMAX) 0.4 mg Take 1 capsule by mouth once daily. CPAP/BIPAP/OTHER Type .CPAPSettings into a note to see current settings/supplies/DME information. No current facility-administered medications for this visit. Objective BP 110/66 (BP Site: Left Arm, BP Position: Sitting, BP Cuff Size: Large Adult) Pulse 76 Temp 36.8 C (98.3 F) (Temporal) Resp 16 Wt 101.4 kg (223 lb 8.7 oz) BMI 35.81 kg/m Physical Exam Constitutional: General: He is not in acute distress. Appearance: He is not ill-appearing. HENT: Nose: No congestion or rhinorrhea. Mouth/Throat: Mouth: Mucous membranes are moist. Pharynx: Oropharynx is clear. Cardiovascular: Heart sounds: Normal heart sounds. Pulmonary: Breath sounds: Normal breath sounds. Neurological: Mental Status: He is alert. 11/02/2024 [place] People tell me that I snore No I wake up at night with shortness of breath or choking No People tell me I gasp, choke or snort while sleeping No People tell me that I stop breathing when sleeping No Feel almost as/more tired after waking No Often wake with headache No Often have difficulty breathing thru nose No I fight sleepiness during the day No I fall asleep when relaxing before/after dinner No Friends,colleagues, family comment on my sleep No Sitting and reading 0 - Never Watching TV 2 - Moderate Chance Sitting/inactive in public place 0 - Never Car for an hour without break 0 - Never Lying down for rest (afternoon) 2 - Moderate Chance Sitting and talking to someone 0 - Never Sitting quietly after lunch (no alcohol) 0 - Never In car, stopped in traffic 0 - Never Have high BP history? Yes Have history of CHF? No Assessment and Plan 1. ALBAN on CPAP - ICD9: 327.23, ICD10: G47.33 (primary diagnosis) Reviewed previous sleep medicine notes. He was using and benefiting from regular auto CPAP use. Continue current settings. - PAP THERAPY ORDER - CPAP/BIPAP/OTHER 2. Controlled type 2 diabetes mellitus without complication, without long-term current use of insulin (HCC) - ICD9: 250.00, ICD10: E11.9 - Controlled - Continue current medications - EMPAGLIFLOZIN 25 MG TABLET 3. BPH with obstruction/lower urinary tract symptoms - ICD9: 600.01, 599.69, ICD10: N40.1, N13.8 Controlled. - TAMSULOSIN 0.4 MG CAPSULE 4. Essential hypertension - ICD9: 401.9, ICD10: I10 - Controlled - Continue current medications Grant Krause MD documented in this encounter [facility] 11-01-2024 Telephone encounter Note Patient notified and will check with pharmacy and if still needed he will ask pcp at office visit today. Dania Jovel LPN [facility] 11-01-2024 Miscellaneous Notes Patient notified and will check with pharmacy and if still needed he will ask pcp at office visit today. Dania Jovel LPN Attempted to reach pt by phone with out success. 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 Try later. Gerda Hsieh LPN Prescription Refill Information The patient has been identified by name and date of : Yes Caregiver verified no other encounters exist for this prescription request: Yes Caregiver confirmed with patient/requestor that no other refills are due, in the near future, with this provider at this time: Yes The last office visit in the department: 07-19-24 Does the patient have a future office visit with this provider/department: Yes Requested Prescriptions Pending Prescriptions Disp Refills furosemide (LASIX) 20 mg tablet 30 tablet 0 Sig: Take 1 tablet by mouth once daily. From [facility]. glipiZIDE XL (GLUCOTROL XL) 2.5 mg 24 hr tablet 30 tablet 5 Sig: Take 1 tablet by mouth once daily. Symone Hsieh [facility] November 01, 2024 9:20 AM documented in this encounter [facility] 11-01-2024 Telephone encounter Note Attempted to reach pt by phone with out success. 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 Try later. Gerda Hsieh LPN [facility] 11-01-2024 Telephone encounter Note Prescription Refill Information The patient has been identified by name and date of : Yes Caregiver verified no other encounters exist for this prescription request: Yes Caregiver confirmed with patient/requestor that no other refills are due, in the near future, with this provider at this time: Yes The last office visit in the department: 07-19-24 Does the patient have a future office visit with this provider/department: Yes Requested Prescriptions Pending Prescriptions Disp Refills furosemide (LASIX) 20 mg tablet 30 tablet 0 Sig: Take 1 tablet by mouth once daily. From [facility]. glipiZIDE XL (GLUCOTROL XL) 2.5 mg 24 hr tablet 30 tablet 5 Sig: Take 1 tablet by mouth once daily. Symone Jori [facility] November 01, 2024 9:20 AM [facility] 11-01-2024 Evaluation note Diagnosis Type 2 diabetes mellitus with stage 3a chronic kidney disease, without long-term current use of insulin (HCC) documented in this encounter [facility]02-03-2025 Telephone encounter Note* Telephone Encounter - Amber Valdes OCCA - 10/30/2024 2:01 PM EST In review of chart, patient is scheduled with PCP to discuss CPAP issues on 11/01. MELINDA Sauceda [facility]02-03-2025 Miscellaneous Notes* Telephone Encounter - Amber Valdes OCCA - 10/30/2024 2:01 PM EST In review of chart, patient is scheduled with PCP to discuss CPAP issues on 11/01. MELINDA Sauceda * Telephone Encounter - Grant Krause MD - 10/27/2024 1:16 PM EST Schedule PCP appointment if CPAP is inoperable. * Telephone Encounter - Rufina Jerome MA - 10/26/2024 6:35 PM EST No sooner new patient sleep appointment available. Patient is still scheduled with sleep 12/04. Insurance also may require patient to complete a new sleep study since it's been over 5 years to qualifyfor a new machine. Please advise if patient is able to schedule with PCP team to get new supplies in the mean time? Rufina Jerome MA * Telephone Encounter - Grant Krause MD - 10/26/2024 5:24 PM EST Schedule sooner appointment with sleep medicine or here if machine is not operational. * Telephone Encounter - Olga Oquendo - 10/24/2024 4:30 PM EST Patient is in need of CPAP supplies and possibly a new machine as his was making a noise and after taking it to [facility] advised patient that he may need a new machine. Patient was also told that he would need to transfer his CPAP and supplies over to [facility] due to insurance. Patient did schedule with [facility] for 12/04 as he has not been seen by them since 2018 [facility] Tele[facility] encounter Note * Telephone Encounter - Grant Krause MD - 10/27/2024 1:16 PM EST Schedule PCP appointment if CPAP is inoperable. [facility]01-30-2025 Telephone encounter Note* Telephone Encounter - Rufina Jerome MA - 10/26/2024 6:35 PM EST No sooner new patient sleep appointment available. Patient is still scheduled with sleep 12/04. Insurance also may require patient to complete a new sleep study since it's been over 5 years to qualifyfor a new machine. Please advise if patient is able to schedule with PCP team to get new supplies in the mean time? Rufina Jerome MA [facility]01-30-2025 Telephone encounter Note* Telephone Encounter - Grant Krause MD - 10/26/2024 5:24 PM EST Schedule sooner appointment with sleep medicine or here if machine is not operational. [facility]01-28-2025 Telephone encounter Note* Telephone Encounter - Olga Oquendo - 10/24/2024 4:30 PM EST Patient is in need of CPAP supplies and possibly a new machine as his was making a noise and after taking it to [facility] advised patient that he may need a new machine. Patient was also told that he would need to transfer his CPAP and supplies over to [facility] due to insurance. Patient did schedule with Tito Evans for 12/04 as he has not been seen by them since 2018 [facility]01-28-2025 Telephone encounter Note* Telephone Encounter - Olga Oquendo - 10/24/2024 4:23 PM EST Patient returned call and advised medication is at the pharmacy. [facility]01-28-2025 Miscellaneous Notes* Telephone Encounter - Olga Oquendo - 10/24/2024 4:23 PM EST Patient returned call and advised medication is at the pharmacy. * Telephone Encounter - Amber Valdes OCCA - 10/24/2024 4:14 PM EST TC to patient, no answer. Unable to leave . Please try again later. MELINDA Sauceda * Telephone Encounter - Lisa Gillespie - 10/24/2024 11:51 AM EST Patient is out of his inhaler. Please expedite this today. Patient has been identified by name and date of : Yes Patient phones for refill(s): Requested Prescriptions Pending Prescriptions Disp Refills albuterol HFA (PROVENTIL HFA, VENTOLIN HFA) 90 mcg/actuation inhaler 18 g 2 Sig: Inhale 2 Puffs as instructed every 6 hours as needed for wheezing/shortness of breath. Date of last office visit in primary care: 10/09/2024 Date of next office visit in primary care: 02/06/2025 Please advise. Thank you. Lisa Gillespie. documented in this encounterPar[facility] Telephone encounter Note * Telephone Encounter - Amber Valdes OCCA - 10/24/2024 4:14 PM EST TC to patient, no answer. Unable to leave VM. Please try again later. MELINDA Sauceda [facility]01-28-2025 Telephone encounter Note* Telephone Encounter - Lisa Gillespie - 10/24/2024 11:51 AM EST Patient is out of his inhaler. Please expedite this today. Patient has been identified by name and date of : Yes Patient phones for refill(s): Requested Prescriptions Pending Prescriptions Disp Refills albuterol HFA (PROVENTIL HFA, VENTOLIN HFA) 90 mcg/actuation inhaler 18 g 2 Sig: Inhale 2 Puffs as instructed every 6 hours as needed for wheezing/shortness of breath. Date of last office visit in primary care: 10/09/2024 Date of next office visit in primary care: 02/06/2025 Please advise. Thank you. Lisa Gillespie. [facility]01-28-2025 Telephone encounter Note* Telephone Encounter - Symone Gonzalez - 10/24/2024 9:30 AM EST Prescription Refill Information The patient has been identified by name and date of : Yes Caregiver verified no other encounters exist for this prescription request: Yes Caregiver confirmed with patient/requestor that no other refills are due, in the near future, with this provider at this time: Yes The last office visit in the department: 07-19-24 Does the patient have a future office visit with this provider/department: Yes Requested Prescriptions Pending Prescriptions Disp Refills lisinopril (ZESTRIL) 10 mg tablet 90 tablet 3 Sig: Take 1 tablet by mouth once daily. Symone Taylor October 24, 2024 9:31 AM [facility]01-28-2025 Miscellaneous Notes* Telephone Encounter - Symone Gonzalez - 10/24/2024 9:30 AM EST Prescription Refill Information The patient has been identified by name and date of : Yes Caregiver verified no other encounters exist for this prescription request: Yes Caregiver confirmed with patient/requestor that no other refills are due, in the near future, with this provider at this time: Yes The last office visit in the department: 07-19-24 Does the patient have a future office visit with this provider/department: Yes Requested Prescriptions Pending Prescriptions Disp Refills lisinopril (ZESTRIL) 10 mg tablet 90 tablet 3 Sig: Take 1 tablet by mouth once daily. Symone Taylor October 24, 2024 9:31 AM documented in this encounterPar[facility] History of Present illness Narrative* Nilda Kim PA-C - 10/09/2024 3:35 PM ESTAssociated Order(s): Large Joint Arthro/Inj: L knee joint Post-Procedure Diagnose(s): Primary osteoarthritis of left knee Large Joint Arthro/Inj: L knee joint Informed Consent Consent Obtained: Verbal [place] Protocol A moment to CARE was completed. SIGN IN Sign in communication not applicable due to emergent procedure. Personnel directly involved with the procedure wore the appropriate PPE. Special Equipment: N/A Patient/Surrogate Stated/Verified: Patient name, Date of , Relevant allergies and Intended procedure TIME OUT Relevant labs, photos, and/or imaging studies have been reviewed. Intended patient and procedure match the source document(s). Consent documented and matches the intended procedure. Correct side/site marked and visible. Medications required for procedure verified. No fire risk assessment and interventions applicable. No implant(s) inserted.10/09/2024 3:35 PM The procedure site was prepped in the usual sterile fashion. Site: L knee joint Medications: 6 mg betamethasone acetate-betamethasone sodium phosphate 6 mg/mL Anesthetics: 5 mL lidocaine (PF) 10 mg/mL (1 %) Outcome: Tolerated well, no immediate complications Post-injection instructions were reviewed with the patient and the patient voiced understanding of these instructions. SIGN OUT No specimen collected. All instruments, equipment, possible retained foreign bodies accounted for. Post-procedure follow-up management communicated and Plan of Care Visit completed when applicable * Lupis Ramirez LPN - 10/09/2024 3:14 PM EST AMB ROOMING INTAKE FLOWSHEET DATA Patient presents with: Left Knee - Established Patient, Follow Up, Injections Lupis Ramirez LPN documented in this encounterPar[facility]25 NoteHNO ID: [id number] Author: NILDA KIM PA-C Service: ? 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 SIGN IN Sign in communication not applicable due to emergent procedure. Personnel directly involved with the procedure wore the appropriate PPE. Special Equipment: N/A Patient/Surrogate Stated/Verified: Patient name, Date of , Relevant allergies and Intended procedure TIME OUT Relevant labs, photos, and/or imaging studies have been reviewed. Intended patient and procedure match the source document(s). Consent documented and matches the intended procedure. Correct side/site marked and visible. Medications required for procedure verified. No fire risk assessment and interventions applicable. No implant(s) inserted.10/09/2024 3:35 PM The procedure site was prepped in the usual sterile fashion. Site: L knee joint Medications: 6 mg betamethasone acetate-betamethasone sodium phosphate 6 mg/mL Anesthetics: 5 mL lidocaine (PF) 10 mg/mL (1 %) Outcome: Tolerated well, no immediate complications Post-injection instructions were reviewed with the patient and the patient voiced understanding of these instructions. SIGN OUT No specimen collected. All instruments, equipment, possible retained foreign bodies accounted for. Post-procedure follow-up management communicated and Plan of Care [facility] NoteHNO ID: [id number] Author: LUPIS RAMIREZ LPN Service: ? Author Type: LICENSED NURSE Type: Progress Notes Filed: 10/09/2024 15:36 Note Text: AMB ROOMING INTAKE FLOWSHEET DATA Patient presents with: Left Knee - Established Patient, Follow Up, Injections [facility] Instructions* Patient Instructions* Grant Krause MD - 10/09/2024 1:36 PM EST Do fasting blood work today. documented in this encounterParma [facility]01-[facility]-2025 NoteHNO ID: [id number] Author: GRANT KRAUSE MD Service: ? Author Type: Physician Type: Progress Notes Filed: 10/09/2024 13:45 Note Text: This note was created using Pandorama. Subjective Xavi Cabello is a 69 year old male. He was doing well and was only concerned about a lesion on his right earlobe present for a year or so. No rapid growth, pain, or bleeding was noted. He had not done his labs but will do them today. Review of Systems Constitutional: Negative for fatigue and fever. Respiratory: Negative for chest tightness and shortness of breath. Cardiovascular: Negative for chest pain, palpitations and leg swelling. ACTIVE PROBLEM LIST Mixed Hyperlipidemia Type 2 Diabetes Mellitus With Stage 3a Chronic Kidney Disease, Without Long-Term Current Use of Insulin (Hcc) Cad (Coronary Artery Disease), [place] Coronary Artery Stented Coronary Artery Benign Prostatic Hyperplasia Without Lower Urinary Tract Symptoms Marijuana Use Essential Hypertension Male Erectile Dysfunction, Unspecified Tubular Adenoma of Colon Obstructive Sleep Apnea Nocturnal Hypoxia Bronchitis With Bronchospasm Erectile Dysfunction Tinnitus Oral Dyskinesia Primary Osteoarthritis of Left Knee Obesity, Class II, Bmi 35-39.9 History of Colonic Polyps Social History Tobacco Use - Smoking status: Never - Smokeless tobacco: Never Vaping Use - Vaping status: Never Used Substance Use Topics - Alcohol use: Not Currently Comment: sober over year - Drug use: Not Currently Types: Marijuana Comment: sober over year Current Outpatient Medications Medication Sig - glipiZIDE (GLUCOTROL XL) 2.5 mg 24 hr tablet Take 1 tablet by mouth once daily. - nitroglycerin sublingual (NITROQUICK) 0.4 mg SL tablet Dissolve 1 tablet under the tongue as needed for chest pain. - sildenafil (VIAGRA) 100 mg tablet Take 1 tablet by mouth once daily as needed. Take 30-60 minutes before sexual activity. - albuterol HFA (PROVENTIL HFA, VENTOLIN HFA) 90 mcg/actuation inhaler Inhale 2 Puffs as instructed every 6 hours as needed for wheezing/shortness of breath. - metoprolol tartrate, short acting, (LOPRESSOR) 25 mg tablet Take 1 tablet by mouth two times a day. - Fenofibrate (LOFIBRA) 160 mg tablet Take 1 tablet by mouth once daily. - metFORMIN (GLUCOPHAGE) 500 mg tablet Take 2 tablets by mouth two times a day with meals. . - lisinopril (ZESTRIL) 10 mg tablet Take 1 tablet by mouth once daily. - tamsulosin (FLOMAX) 0.4 mg Take 1 capsule by mouth once daily. - furosemide (LASIX) 20 mg tablet Take 1 tablet by mouth once daily. From [facility]. - potassium chloride (K-TAB) 10 mEq tablet Take 1 tablet by mouth daily with breakfast. From [facility]. - empagliflozin (JARDIANCE) 25 mg tablet Take 1 tablet by mouth once daily. Take 1 tablet once daily in the morning - ranolazine SR (RANEXA) 1,000 mg tab ER 12 hr Take 1 tablet by mouth twice daily. Per CARDIOLOGY. - CPAP Settings 5 - 15 cm H2O, suitable mask per pt preference, chin strap, head gear, humidity, tubing, lifetime supplies. G47.33 Obstructive Sleep Apnea - aspirin, enteric coated (ECOTRIN LOW STRENGTH) 81 mg EC tablet Take 1 tablet by mouth once daily. - rosuvastatin (CRESTOR) 40 mg tablet Take 1 tablet by mouth daily at bedtime. For cholesterol. - gabapentin (NEURONTIN) 100 mg capsule Take 1 capsule by mouth two times a day for 180 days. No current facility-administered medications for this visit. Objective BP 118/76 (BP Site: Left Arm, BP Position: Sitting, BP Cuff Size: Large Adult) Pulse 64 Temp 36.7 ?C (98.1 ?F) (Temporal) Resp 16 Wt 101 kg (222 lb 10.6 oz) BMI 35.67 kg/m? Physical Exam Constitutional: General: He is not in acute distress. HENT: Ears: Comments: Greenish seborrheic lesion edge of right ear lobe ~4 x 3 mm. Cardiovascular: Rate and Rhythm: Normal rate and regular rhythm. Heart sounds: No murmur heard. No gallop. Pulmonary: Breath sounds: Normal breath sounds. Musculoskeletal: Right lower leg: No edema. Left lower leg: No edema. Neurological: Mental Status: He is alert. Cranial Nerves: No facial asymmetry. Comments: No oral dyskinesia. Assessment and Plan 1. Seborrheic keratosis - ICD9: 702.19, ICD10: L82.1 (primary diagnosis) - Right ear lobe. Observe only. Consider LN if bothersome. 2. Controlled type 2 diabetes mellitus without complication, without long-term current use of insulin (HCC) - ICD9: 250.00, ICD10: E11.9 - Control undetermined, due for labs - Continue current medications 3. Mixed hyperlipidemia - ICD9: 272.2, ICD10: E78.2 - Control undetermined, due for labs - Continue current medications - Counseled on healthy diet and regular exercise - ROSUVASTATIN 40 MG TABLET 4. Oral dyskinesia - ICD9: 333.82, ICD10: G24.4 - Controlled. Continue medication. - GABAPENTIN 100 MG CAPSULE Grant Krause [facility]01-13-2025 History of Present illness Narrative* Grant Krause MD - 10/09/2024 1:20 PM EST This note was created using MoneyMailriter. Subjective Xavi Cabello is a 69 year old male. He was doing well and was only concerned about a lesion on his right earlobe present for a year or so. No rapid growth, pain, or bleeding was noted. He had not done his labs but will do them today. Review of Systems Constitutional: Negative for fatigue and fever. Respiratory: Negative for chest tightness and shortness of breath. Cardiovascular: Negative for chest pain, palpitations and leg swelling. ACTIVE PROBLEM LIST Mixed Hyperlipidemia Type 2 Diabetes Mellitus With Stage 3a Chronic Kidney Disease, Without Long-Term Current Use of Insulin (Hcc) Cad (Coronary Artery Disease), [place] Coronary Artery Stented Coronary Artery Benign Prostatic Hyperplasia Without Lower Urinary Tract Symptoms Marijuana Use Essential Hypertension Male Erectile Dysfunction, Unspecified Tubular Adenoma of Colon Obstructive Sleep Apnea Nocturnal Hypoxia Bronchitis With Bronchospasm Erectile Dysfunction Tinnitus Oral Dyskinesia Primary Osteoarthritis of Left Knee Obesity, Class II, Bmi 35-39.9 History of Colonic Polyps Social History Tobacco Use Smoking status: Never Smokeless tobacco: Never Vaping Use Vaping status: Never Used Substance Use Topics Alcohol use: Not Currently Comment: sober over year Drug use: Not Currently Types: Marijuana Comment: sober over year Current Outpatient Medications Medication Sig glipiZIDE (GLUCOTROL XL) 2.5 mg 24 hr tablet Take 1 tablet by mouth once daily. nitroglycerin sublingual (NITROQUICK) 0.4 mg SL tablet Dissolve 1 tablet under the tongue as neededfor chest pain. sildenafil (VIAGRA) 100 mg tablet Take 1 tablet by mouth once daily as needed. Take 30-60 minutes before sexual activity. albuterol HFA (PROVENTIL HFA, VENTOLIN HFA) 90 mcg/actuation inhaler Inhale 2 Puffs as instructed every 6 hours as needed for wheezing/shortness of breath. metoprolol tartrate, short acting, (LOPRESSOR) 25 mg tablet Take 1 tablet by mouth two times a day. Fenofibrate (LOFIBRA) 160 mg tablet Take 1 tablet by mouth once daily. metFORMIN (GLUCOPHAGE) 500 mg tablet Take 2 tablets by mouth two times a day with meals. . lisinopril (ZESTRIL) 10 mg tablet Take 1 tablet by mouth once daily. tamsulosin (FLOMAX) 0.4 mg Take 1 capsule by mouth once daily. furosemide (LASIX) 20 mg tablet Take 1 tablet by mouth once daily. From [facility]. potassium chloride (K-TAB) 10 mEq tablet Take 1 tablet by mouth daily with breakfast. From [facility]. empagliflozin (JARDIANCE) 25 mg tablet Take 1 tablet by mouth once daily. Take 1 tablet once daily in the morning ranolazine SR (RANEXA) 1,000 mg tab ER 12 hr Take 1 tablet by mouth twice daily. Per CARDIOLOGY. CPAP Settings 5 - 15 cm H2O, suitable mask per pt preference, chin strap, head gear, humidity, tubing, lifetime supplies. G47.33 Obstructive Sleep Apnea aspirin, enteric coated (ECOTRIN LOW STRENGTH) 81 mg EC tablet Take 1 tablet by mouth once daily. rosuvastatin (CRESTOR) 40 mg tablet Take 1 tablet by mouth daily at bedtime. For cholesterol. gabapentin (NEURONTIN) 100 mg capsule Take 1 capsule by mouth two times a day for 180 days. No current facility-administered medications for this visit. Objective BP 118/76 (BP Site: Left Arm, BP Position: Sitting, BP Cuff Size: Large Adult) Pulse 64 Temp 36.7 C (98.1 F) (Temporal) Resp 16 Wt 101 kg (222 lb 10.6 oz) BMI 35.67 kg/m Physical Exam Constitutional: General: He is not in acute distress. HENT: Ears: Comments: Greenish seborrheic lesion edge of right ear lobe ~4 x 3 mm. Cardiovascular: Rate and Rhythm: Normal rate and regular rhythm. Heart sounds: No murmur heard. No gallop. Pulmonary: Breath sounds: Normal breath sounds. Musculoskeletal: Right lower leg: No edema. Left lower leg: No edema. Neurological: Mental Status: He is alert. Cranial Nerves: No facial asymmetry. Comments: No oral dyskinesia. Assessment and Plan 1. Seborrheic keratosis - ICD9: 702.19, ICD10: L82.1 (primary diagnosis) - Right ear lobe. Observe only. Consider LN if bothersome. 2. Controlled type 2 diabetes mellitus without complication, without long-term current use of insulin (HCC) - ICD9: 250.00, ICD10: E11.9 - Control undetermined, due for labs - Continue current medications 3. Mixed hyperlipidemia - ICD9: 272.2, ICD10: E78.2 - Control undetermined, due for labs - Continue current medications - Counseled on healthy diet and regular exercise - ROSUVASTATIN 40 MG TABLET 4. Oral dyskinesia - ICD9: 333.82, ICD10: G24.4 - Controlled. Continue medication. - GABAPENTIN 100 MG CAPSULE Grant Krause MD documented in this encounterPar[facility] Telephone encounter Note * Telephone Encounter - Lynda Dickens RN - 10/09/2024 9:41 AM EST The patient has been identified by name and date of : Yes Caregiver verified no other encounters exist for this prescription request: Yes Caregiver confirmed with patient/requestor that no other refills are due, in the near future, with this provider at this time: Yes The last office visit in the department: 07/19/2024 Does the patient have a future office visit with this provider/department: Yes 10/09/2024 Requested Prescriptions Pending Prescriptions Disp Refills glipiZIDE XL (GLUCOTROL XL) 2.5 mg 24 hr tablet 30 tablet 5 Sig: Take 1 tablet by mouth once daily. Lynda Dickens RN October 09, 2024 9:41 AM [facility]01-13-2025 Miscellaneous Notes* Telephone Encounter - Lynda Dickens RN - 10/09/2024 9:41 AM EST The patient has been identified by name and date of : Yes Caregiver verified no other encounters exist for this prescription request: Yes Caregiver confirmed with patient/requestor that no other refills are due, in the near future, with this provider at this time: Yes The last office visit in the department: 07/19/2024 Does the patient have a future office visit with this provider/department: Yes 10/09/2024 Requested Prescriptions Pending Prescriptions Disp Refills glipiZIDE XL (GLUCOTROL XL) 2.5 mg 24 hr tablet 30 tablet 5 Sig: Take 1 tablet by mouth once daily. Lynda Dickens RN October 09, 2024 9:41 AM documented in this encounterPar[facility]01[facility]25 Evaluation note* Diagnosis Type 2 diabetes mellitus with stage 3a chronic kidney disease, without long-term current use of insulin (HCC) documented in this encounter [facility]01-10-2025 NoteHNO ID: [id number] Author: MARGARITO JOSEPH, ? Service: ? Author Type: Physician Type: Progress Notes Filed: 10/06/2024 13:17 Note Text: Last saw pcp: 07/19/24 Subjective: Patient presents to clinic c/o painful toenails. They state that the nails are especially painful with shoe gear and pressure. Patient states that nails 1-5 b/l are painful. Patient admits to being diabetic. No other pedal complaints at this time. Patient states no change in medications or medical history since last visit. Objective: Patient presents to clinic ambulating in sneakers Vasc: DP and PT pulses are palpable bilateral. CFT is less than 5 seconds bilateral. Skin temperature is warm to cool proximal to distal bilateral. There is moderate edema or varicosities noted. Neuro: Protective sensation is intact to the foot and toes when tested with the 5.07 SWM bilateral. Vibratory sensation is absent at the hallux IPJ bilateral. The hallux is downgoing bilateral. Derm: Nails 1-5 b/l are painful, discolored-yellow, thick, crumbly, dystrophic and with subungal debris. Skin is of normal turgor, texture and hair growth is present bilateral. There are no hyperkeratosis, ulcerations, scars, verruca or other lesions noted. Ortho: Muscle strength is 5/5 for all pedal groups tested. Ankle joint DF is full with the knee extended with no pain or crepitus noted. 1st MPJ ROM is decreased bilateral. Bunion is present to b/l feet. Assessment: (B35.1) Onychomycosis (primary encounter diagnosis) (M79.675) Pain in toe of left foot (M79.674) Pain in toe of right foot (E11.42) Diabetic polyneuropathy associated with type 2 diabetes mellitus (HCC) (M20.10) Acquired hallux valgus, unspecified laterality (M20.12) Hallux valgus of left foot Plan: Patient was seen and evaluated. Nails 1-5 bilateral were debrided in length and thickness. Patient was instructed on the continued importance of diabetic foot care along with proper diet and keeping their blood sugar under control to prevent complications. Stressed the importance of avoiding barefoot walking, wearing good shoe and inspection of feet Discussed bunion. No pain. Continue with wider shoe. Patient is to RTC in 3-4 months. Margarito Joseph, [facility]01-10-2025 NoteHNO ID: [id number] Author: LUPIS RAMIREZ LPN Service: ? Author Type: LICENSED NURSE Type: Progress Notes Filed: 10/06/2024 13:17 Note Text: AMB ROOMING INTAKE FLOWSHEET DATA Patient presents with: Left Foot - Established Patient, Diabetic Foot Care, Swelling Right Foot - Established Patient, Diabetic Foot Care Lupis Ramirez LPJ.W. [facility] Telephone encounter Note* Telephone Encounter - Gerda Hsieh LPN - 09/18/2024 2:58 PM EST The patient has been identified by name and date of : Yes Caregiver verified no other encounters exist for this prescription request: Yes Caregiver confirmed with patient/requestor that no other refills are due, in the near future, with this provider at this time: Yes The last office visit in the department: 07/19/2024 Does the patient have a future office visit with this provider/department: Yes 10/09/2024 Requested Prescriptions Pending Prescriptions Disp Refills nitroglycerin sublingual (NITROQUICK) 0.4 mg SL tablet 25 tablet 0 Sig: Dissolve 1 tablet under the tongue as needed for chest pain. Gerda Hsieh LPN September 18, 2024 2:58 PM [facility]12-23-2024 Miscellaneous Notes* Telephone Encounter - Gerda Hsieh LPN - 09/18/2024 2:58 PM EST The patient has been identified by name and date of : Yes Caregiver verified no other encounters exist for this prescription request: Yes Caregiver confirmed with patient/requestor that no other refills are due, in the near future, with this provider at this time: Yes The last office visit in the department: 07/19/2024 Does the patient have a future office visit with this provider/department: Yes 10/09/2024 Requested Prescriptions Pending Prescriptions Disp Refills nitroglycerin sublingual (NITROQUICK) 0.4 mg SL tablet 25 tablet 0 Sig: Dissolve 1 tablet under the tongue as needed for chest pain. Gerda Hsieh LPN September 18, 2024 2:58 PM documented in this encounterParma [facility]11-18-2024 History of Present illness Narrative* [facility] - 08/14/2024 2:58 PM EST Pt chart reviewed as part of population health initiative focused on statin use in patients with diabetes (DM) or cardiovascular disease (CVD). Xavi Cabello is identified through data from [employer] (insurer) as a potential candidate for statin therapy with no prescriptions claims processed for a statin medication in this calendar year. Chart Review The following case components were reviewed for current or historic statin use: Confirmed diabetes and or CVD: Yes Current/Active med list includes a statin: Yes IF YES, Last order date and quantity: rosuvastatin 40 mg 90 ds + 1RF on 05/05/24 Last pharmacy fill date: Per Epic: 08/01/24 for 90ds, Per pharmacy phone call: 08/01/24 for 90 ds IF NO, reason identified (contraindication, intolerance, exclusion, etc.): n/a ALLERGIES No Known Allergies PAST MEDICAL HISTORY Diagnosis Date Alcohol abuse 03/05/2012 Arthritis Asthma CAD (coronary artery disease), squaxin coronary artery 03/05/2012 COPD (chronic obstructive pulmonary disease) (HCC) COVID-19 04/24/2022 Hypertension Hypertrophy of prostate without urinary obstruction and other lower urinary tract symptoms (LUTS) 07/28/2007 Left knee pain Marijuana use Nocturnal hypoxia 10/06/2017 Obesity (BMI 30-39.9) Obstructive sleep apnea 10/06/2017 [facility] [employer] Other and unspecified hyperlipidemia Stented coronary artery 03/08/2012 Tubular adenoma of colon 08/03/2012 Type 2 diabetes mellitus with stage 3a chronic kidney disease, without long-term current use of insulin ([facility]) 09/26/2022 Type II or unspecified type diabetes mellitus without mention of complication, not stated as uncontrolled 09/05/2007 Unstable angina ([facility]) 07/28/2013 Cholesterol, Total (mg/dL) Date Value 10/08/2023 150 06/27/2021 208 HDL Cholesterol (mg/dL) Date Value 10/08/2023 40 06/27/2021 50 LDL Cholesterol (mg/dL) Date Value 10/08/2023 80 06/27/2021 130 Triglyceride (mg/dL) Date Value 10/08/2023 149 06/27/2021 138 Outcome of review: Confirmed pickup by pharmacy Teressa Maldonado PharmEvelyn, BCACP Primary Care Clinical Occupational Health Rn documented in this encounterPar[facility]24 NoteHNO ID: [id number] Author: TERESSA MALDONADO RPh Service: ? Author Type: Pharmacist Type: Progress Notes Filed: 08/14/2024 15:00 Note Text: Pt chart reviewed as part of population health initiative focused on statin use in patients with diabetes (DM) or cardiovascular disease (CVD). Xavi Cabello is identified through data from [employer] (insurer) as a potential candidate for statin therapy with no prescriptions claims processed for a statin medication in this calendar year. Chart Review The following case components were reviewed for current or historic statin use: Confirmed diabetes and or CVD: Yes Current/Active med list includes a statin: Yes IF YES, Last order date and quantity: rosuvastatin 40 mg 90 ds + 1RF on 05/05/24 Last pharmacy fill date: Per Epic: 08/01/24 for 90ds, Per pharmacy phone call: 08/01/24 for 90 ds IF NO, reason identified (contraindication, intolerance, exclusion, etc.): n/a ALLERGIES No Known Allergies PAST MEDICAL HISTORY Diagnosis Date Alcohol abuse 03/05/2012 Arthritis Asthma CAD (coronary artery disease), squaxin coronary artery 03/05/2012 COPD (chronic obstructive pulmonary disease) ([facility]) COVID-19 04/24/2022 Hypertension Hypertrophy of prostate without urinary obstruction and other lower urinary tract symptoms (LUTS) 07/28/2007 Left knee pain Marijuana use Nocturnal hypoxia 10/06/2017 Obesity (BMI 30-39.9) Obstructive sleep apnea 10/06/2017 [facility] [employer] Other and unspecified hyperlipidemia Stented coronary artery 03/08/2012 Tubular adenoma of colon 08/03/2012 Type 2 diabetes mellitus with stage 3a chronic kidney disease, without long-term current use of insulin ([facility]) 09/26/2022 Type II or unspecified type diabetes mellitus without mention of complication, not stated as uncontrolled 09/05/2007 Unstable angina ([facility]) 07/28/2013 Cholesterol, Total (mg/dL) Date Value 10/08/2023 150 06/27/2021 208 HDL Cholesterol (mg/dL) Date Value 10/08/2023 40 06/27/2021 50 LDL Cholesterol (mg/dL) Date Value 10/08/2023 80 06/27/2021 130 Triglyceride (mg/dL) Date Value 10/08/2023 149 06/27/2021 138 Outcome of review: Confirmed pickup by pharmacy Teressa Maldonado PharmD, BCACP Primary Care Clinical Pharmacy [facility]ist[facility]24 NotePatient Outreach ([facility]) XAVI CABELLO ([id number]) 1955 M Date Time Provider Department 08/14/24 TERESSA MALDONADO [facility] During your visit today, we recorded the following information about you: Teressa Maldonado [facility] 08/14/2024 3:00 PM Signed Pt chart reviewed as part of population health initiative focused on statin use in patients with diabetes (DM) or cardiovascular disease (CVD). Xavi Cabello is identified through data from [employer] (insurer) as a potential candidate for statin therapy with no prescriptions claims processed for a statin medication in this calendar year. Chart Review The following case components were reviewed for current or historic statin use: Confirmed diabetes and or CVD: Yes Current/Active med list includes a statin: Yes IF YES, Last order date and quantity: rosuvastatin 40 mg 90 ds + 1RF on 05/05/24 Last pharmacy fill date: Per Epic: 08/01/24 for 90ds, Per pharmacy phone call: 08/01/24 for 90 ds IF NO, reason identified (contraindication, intolerance, exclusion, etc.): n/a ALLERGIES No Known Allergies PAST MEDICAL HISTORY Diagnosis Date Alcohol abuse 03/05/2012 Arthritis Asthma CAD (coronary artery disease), squaxin coronary artery 03/05/2012 COPD (chronic obstructive pulmonary disease) ([facility]) COVID-19 04/24/2022 Hypertension Hypertrophy of prostate without urinary obstruction and other lower urinary tract symptoms (LUTS) 07/28/2007 Left knee pain Marijuana use Nocturnal hypoxia 10/06/2017 Obesity (BMI 30-39.9) Obstructive sleep apnea 10/06/2017 [facility] [employer] Other and unspecified hyperlipidemia Stented coronary artery 03/08/2012 Tubular adenoma of colon 08/03/2012 Type 2 diabetes mellitus with stage 3a chronic kidney disease, without long-term current use of insulin ([facility]) 09/26/2022 Type II or unspecified type diabetes mellitus without mention of complication, not stated as uncontrolled 09/05/2007 Unstable angina ([facility]) 07/28/2013 Cholesterol, Total (mg/dL) Date Value 10/08/2023 150 06/27/2021 208 HDL Cholesterol (mg/dL) Date Value 10/08/2023 40 06/27/2021 50 LDL Cholesterol (mg/dL) Date Value 10/08/2023 80 06/27/2021 130 Triglyceride (mg/dL) Date Value 10/08/2023 149 06/27/2021 138 Outcome of review: Confirmed pickup by pharmacy Teressa Maldonado, PharmD, BCACP Primary Care Clinical Occupational Health Rn Allergies As of Date: 08/14/2024 (No Known Allergies) Date Reviewed: 07/21/2024 Reviewed by: Tad Stratton, HIGH 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 - Fully Assessed Reason for Visit: Allied Health Visit [5] Cmt: Statin Use Review Prescriptions as of 08/14/2024 - sildenafil (VIAGRA) 100 mg tablet Take 1 tablet by mouth once daily as needed. Take 30-60 minutes before sexual activity. - benzonatate (TESSALON PERLES) 100 mg capsule Take 1 capsule by mouth three times a day as needed for up to 12 doses. - albuterol HFA (PROVENTIL HFA, VENTOLIN HFA) 90 mcg/actuation inhaler Inhale 2 Puffs as instructed every 6 hours as needed for wheezing/shortness of breath. - metoprolol tartrate, short acting, (LOPRESSOR) 25 mg tablet Take 1 tablet by mouth two times a day. - Fenofibrate (LOFIBRA) 160 mg tablet Take 1 tablet by mouth once daily. - rosuvastatin (CRESTOR) 40 mg tablet Take 1 tablet by mouth daily at bedtime. For cholesterol. - glipiZIDE (GLUCOTROL XL) 2.5 mg 24 hr tablet Take 1 tablet by mouth once daily. - gabapentin (NEURONTIN) 100 mg capsule Take 1 capsule by mouth two times a day for 180 days. - metFORMIN (GLUCOPHAGE) 500 mg tablet Take 2 tablets by mouth two times a day with meals. . - lisinopril (ZESTRIL) 10 mg tablet Take 1 tablet by mouth once daily. - tamsulosin (FLOMAX) 0.4 mg Take 1 capsule by mouth once daily. - furosemide (LASIX) 20 mg tablet Take 1 tablet by mouth once daily. From [facility]. - potassium chloride (K-TAB) 10 mEq tablet Take 1 tablet by mouth daily with breakfast. From [facility]. - empagliflozin (JARDIANCE) 25 mg tablet Take 1 tablet by mouth once daily. Take 1 tablet once daily in the morning - nitroglycerin sublingual (NITROQUICK) 0.4 mg SL tablet Dissolve 1 tablet under the tongue as needed for chest pain. - ranolazine SR (RANEXA) 1,000 mg tab ER 12 hr Take 1 tablet by mouth twice daily. Per CARDIOLOGY. - CPAP Settings 5 - 15 cm H2O, suitable mask per pt preference, chin strap, head gear, humidity, tubing, lifetime supplies. G47.33 Obstructive Sleep Apnea - aspirin, enteric coated (ECOTRIN LOW STRENGTH) 81 mg EC tablet Take 1 tablet by mouth once daily. Problem List As Of Date 08/14/2024 Noted Resolved Mixed hyperlipidemia [E78.2] BPH w/o urinary obs/LUTS [N40.0] 07/28/2007 03/04/2012 Type 2 diabetes mellit (more content not included)...[facility] 08-03-20[facility] Telephone encounter Note* Telephone Encounter - Marbella Reeves RN - 08/03/2024 2:29 PM EST Prescription Refill Information The patient has been identified by name and date of : Yes Caregiver verified no other encounters exist for this prescription request: Yes Caregiver confirmed with patient/requestor that no other refills are due, in the near future, with this provider at this time: Yes The last office visit in the department: 07/19/24 Does the patient have a future office visit with this provider/department: Yes Requested Prescriptions Pending Prescriptions Disp Refills sildenafil (VIAGRA) 100 mg tablet 5 tablet 2 Sig: Take 1 tablet by mouth once daily as needed. Take 30-60 minutes before sexual activity. Marbella Reeves RN August 03, 2024 2:33 PM [facility]11-07-2024 Miscellaneous Notes* Telephone Encounter - Marbella Reeves RN - 08/03/2024 2:29 PM EST Prescription Refill Information The patient has been identified by name and date of : Yes Caregiver verified no other encounters exist for this prescription request: Yes Caregiver confirmed with patient/requestor that no other refills are due, in the near future, with this provider at this time: Yes The last office visit in the department: 07/19/24 Does the patient have a future office visit with this provider/department: Yes Requested Prescriptions Pending Prescriptions Disp Refills sildenafil (VIAGRA) 100 mg tablet 5 tablet 2 Sig: Take 1 tablet by mouth once daily as needed. Take 30-60 minutes before sexual activity. Marbella Reeves RN August 03, 2024 2:33 PM documented in this encounterParma [facility]10-31-2024 History of Present illness Narrative* Suzanne Krueger - 07/27/2024 1:45 PM EDT Xavi Cabello is identified through a medication adherence outreach initiative based on pharmacy claims data from [employer] (insurer) for Non-insulin DM medication(s). Patient is reviewed 07/27/24 due to medication adherence concerns with the following medications (name, strength, sig): Metformin 500mg 2 tabs twice daily Per data/report, last fill date and days supply: Metformin due 07/26 Per reconcile dispense, last fill date and days supply: Metformin 06/26/24 for 30 ds Per call to pharmacy, last picked up date and days supply: n/a Contacted patient: No answer; left generic VM Outcome of review/outreach: (choose outcome source and status) - Called pt had to [facility] Suzanne Krueger Shipping Room Supervisor documented in this encounterParma [facility]10-25-2024 History of Present illness Narrative* Tad Stratton, HIGH 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 - 07/21/2024 3:46 PM EDT This note was created using [employer]. Subjective Xavi Cabello is a 69 year old male. HPI Pt has had a sore throat, cough, runny nose and watery eyes. The nose and eyes have resolved. He has been feeling very tired. Review of Systems Constitutional: Negative for fever. HENT: Positive for sore throat. Respiratory: Positive for cough. Objective BP 128/78 Pulse 102 Temp 37.6 C (99.6 F) Resp 18 Wt 100.4 kg (221 lb 5.5 oz) SpO2 96% BMI 35.46 kg/m Physical Exam Vitals and nursing note reviewed. Constitutional: General: He is not in acute distress. Appearance: Normal appearance. He is not ill-appearing. HENT: Head: Normocephalic. Mouth/Throat: Mouth: Mucous membranes are moist. Eyes: Conjunctiva/sclera: Conjunctivae normal. Cardiovascular: Rate and Rhythm: Normal rate and regular rhythm. Pulmonary: Effort: Pulmonary effort is normal. Breath sounds: Normal breath sounds. Musculoskeletal: General: Normal range of motion. Cervical back: Normal range of motion. Skin: General: Skin is warm and dry. Neurological: General: No focal deficit present. Mental Status: He is alert. Psychiatric: Mood and Affect: Mood normal. Behavior: Behavior normal. Assessment and Plan ASSESSMENT/PLAN: 1. Acute cough - ICD9: 786.2, ICD10: R05.1 Discussed possible viral testing which he declines. I did consider chest x-ray however as patient has not reported a fever and has a benign physical exam and appears well I did not feel it was necessary at this time. Patient requesting a prescription for cough medicine which she was given. Discussed most likely viral origin of his symptoms. - BENZONATATE 100 MG CAPSULE Tad Stratton APRN.BRAKE MACHINE OPERATOR documented in this encounterParma [facility]10-23-2024 Instructions* Patient Instructions* Grant Krause MD - 07/19/2024 2:34 PM EDT FASTING BLOOD WORK AND URINE TEST IN SEPTEMBER. documented in this encounterParma [facility]10-23-2024 History of Present illness Narrative* Grant Krause MD - 07/19/2024 2:27 PM EDT This note was created using [employer]. Subjective Xavi Cabello is a 69 year old male. He was admitted Jul 11 for observation of chest pain. ACS was ruled out and stress test was negative. Medications were unchanged. He had no recurrence of symptoms. Review of Systems Constitutional: Negative for fatigue and fever. Respiratory: Negative for chest tightness and shortness of breath. Cardiovascular: Negative for chest pain, palpitations and leg swelling. ACTIVE PROBLEM LIST Mixed Hyperlipidemia Type 2 Diabetes Mellitus With Stage 3a Chronic Kidney Disease, Without Long-Term Current Use of Insulin (Hcc) Cad (Coronary Artery Disease), [place] Coronary Artery Stented Coronary Artery Benign Prostatic Hyperplasia Without Lower Urinary Tract Symptoms Marijuana Use Essential Hypertension Male Erectile Dysfunction, Unspecified Tubular Adenoma of Colon Obstructive Sleep Apnea Nocturnal Hypoxia Bronchitis With Bronchospasm Erectile Dysfunction Tinnitus Oral Dyskinesia Primary Osteoarthritis of Left Knee Obesity, Class II, Bmi 35-39.9 History of Colonic Polyps Social History Tobacco Use Smoking status: Never Smokeless tobacco: Never Vaping Use Vaping status: Never Used Substance Use Topics 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 metoprolol tartrate, short acting, (LOPRESSOR) 25 mg tablet Take 1 tablet by mouth two times a day. Fenofibrate (LOFIBRA) 160 mg tablet Take 1 tablet by mouth once daily. rosuvastatin (CRESTOR) 40 mg tablet Take 1 tablet by mouth daily at bedtime. For cholesterol. glipiZIDE (GLUCOTROL XL) 2.5 mg 24 hr tablet Take 1 tablet by mouth once daily. sildenafil (VIAGRA) 100 mg tablet Take 1 tablet by mouth once daily as needed. Take 30-60 minutes before sexual activity. gabapentin (NEURONTIN) 100 mg capsule Take 1 capsule by mouth two times a day for 180 days. metFORMIN (GLUCOPHAGE) 500 mg tablet Take 2 tablets by mouth two times a day with meals. . lisinopril (ZESTRIL) 10 mg tablet Take 1 tablet by mouth once daily. tamsulosin (FLOMAX) 0.4 mg Take 1 capsule by mouth once daily. furosemide (LASIX) 20 mg tablet Take 1 tablet by mouth once daily. From [facility]. potassium chloride (K-TAB) 10 mEq tablet Take 1 tablet by mouth daily with breakfast. [facility]. empagliflozin (JARDIANCE) 25 mg tablet Take 1 tablet by mouth once daily. Take 1 tablet once daily in the morning nitroglycerin sublingual (NITROQUICK) 0.4 mg SL tablet Dissolve 1 tablet under the tongue as neededfor chest pain. ranolazine SR (RANEXA) 1,000 mg tab ER 12 hr Take 1 tablet by mouth twice daily. Per CARDIOLOGY. CPAP Settings 5 - 15 cm H2O, suitable mask per pt preference, chin strap, head gear, humidity, tubing, lifetime supplies. G47.33 Obstructive Sleep Apnea aspirin, enteric coated (ECOTRIN LOW STRENGTH) 81 mg EC tablet Take 1 tablet by mouth once daily. No current facility-administered medications for this visit. Objective BP 102/60 (BP Site: Left Arm, BP Position: Sitting, BP Cuff Size: Large Adult) Pulse 64 Temp 36.7 C (98 F) (Temporal) Resp 16 Wt 101.6 kg (223 lb 15.8 oz) BMI 35.88 kg/m Physical Exam Constitutional: General: He is not in acute distress. Appearance: He is not ill-appearing. HENT: Head: Normocephalic. Eyes: Conjunctiva/sclera: Conjunctivae normal. Cardiovascular: Rate and Rhythm: Normal rate and regular rhythm. Heart sounds: No murmur heard. No gallop. Pulmonary: Breath sounds: Normal breath sounds. Musculoskeletal: Right lower leg: No edema. Left lower leg: No edema. Neurological: Mental Status: He is alert. Assessment and Plan 1. Chest pain, unspecified type - ICD9: 786.50, ICD10: R07.9 (primary diagnosis) Chest pain of unclear etiology, patient with significant risk factor(s). 2. Coronary artery disease involving squaxin coronary artery of squaxin heart without angina pectoris- ICD9: 414.01, ICD10: I25.10 - Stable. 3. Type 2 diabetes mellitus with stage 3a chronic kidney disease, without long- term current use of insulin (HCC) - ICD9: 250.40, 585.3, ICD10: E11.22, N18.31 - Controlled - Continue current medications - BASIC METABOLIC PANEL - HEMOGLOBIN A1C - ALBUMIN/CREATININE RATIO, URINE 4. Mixed hyperlipidemia - ICD9: 272.2, ICD10: E78.2 - Controlled - Continue current medications - LIPID PANEL BASIC Grant Krause MD documented in this encounterParma [facility]10-15-2024 [facility] Medical Records Department [address] [place] [id number] Discharge Summary 07/11/24 1330 MR#: [id number] Acct: [id number] Name: XAVI CABELLO Rep #: [id number] : 1955 69 From: Quyen Broussard MD PCP: Dr. Grant Krause MD Status:ADM NHUNG Location: [place] [address] Providers Date of Admission: 07/11/24 Date of Discharge: 07/11/24 Primary Care Physician: Dr. Grant Krause MD Reason For Visit: CHEST PAIN WITH LEFT ARM PAIN Diagnosis Discharge Diagnosis (1) History of left heart catheterization (LHC): Status: Acute Code(s): Z98.890 - Other specified postprocedural states (2) Presence of stent in coronary artery: Status: Chronic Code(s): Z95.5 - Presence of coronary angioplasty implant and graft (3) Pure hypercholesterolemia: Status: Chronic Code(s): E78.00 - Pure hypercholesterolemia, unspecified (4) Essential hypertension: Status: Chronic Code(s): I10 - Essential (primary) hypertension (5) Chest pain: Status: Acute Code(s): R07.9 - Chest pain, unspecified Qualifiers: Chest pain type: unspecified Qualified Code(s): R07.9 - Chest pain, unspecified (6) Type II diabetes mellitus: Status: Chronic Code(s): E11.9 - Type 2 diabetes mellitus without complications (7) Obesity (BMI 30.0-34.9): Status: Chronic Code(s): E66.9 - Obesity, unspecified (8) ALBAN on CPAP: Status: Chronic Code(s): G47.33 - Obstructive sleep apnea (adult) (pediatric); Z99.89 - Dependence on other enabling machines and devices Medications at Discharge Home Medications aspirin 81 mg chewable tablet 81 mg PO DAILY@0800 07/20/15 nitroglycerin 0.4 mg sublingual tablet 0.4 mg sublingual Q5M PRN Chest Pain #25 tabs 07/23/15 tamsulosin 0.4 mg capsule 0.4 mg PO DAILY 09/08/16 fenofibrate 160 mg tablet 160 mg PO DAILY 09/10/16 albuterol sulfate 90 mcg/actuation aerosol inhaler (ProAir HFA) 2 puff inhalation Q6H PRN Shortness Of Breath Or Wheezing 10/30/20 lisinopril 10 mg tablet 10 mg PO DAILY 10/30/20 metoprolol tartrate 25 mg tablet 25 mg PO BID 05/08/21 empagliflozin 25 mg tablet (Jardiance) 25 mg PO DAILY 12/04/21 metformin 500 mg tablet 1,000 mg PO BID 12/04/21 rosuvastatin 40 mg tablet 40 mg PO DAILY 12/04/21 glipizide 2.5 mg tablet, extended release 24 hr 2.5 mg PO DAILY 05/14/23 ranolazine 1,000 mg tablet,extended release,12 hr (Ranexa) 1,000 mg PO BID #180 tabs 07/09/23 furosemide 20 mg tablet 20 mg PO DAILY #90 tabs 12/06/23 gabapentin 100 mg capsule 100 mg PO BID 12/06/23 potassium chloride 10 mEq tablet,extended release 10 meq PO DAILY #90 tabs 12/06/23 sildenafil 50 mg tablet (Viagra) 50 mg PO QDAY PRN sexual activity 06/06/24 Hospital Course Operations None Procedures Stress test Summary of Care Provided Minutes Spent on Discharge: 45 Hospital Course: Patient is a 69 y/o male with a PMH as outlined who was admitted via the ED on 07/11/2024 with a complaint of chest pain. The chest pain radiated to the left side of his chest and symptoms started on the evening of admission. He said the pain felt like how he had previously felt when he had his acute coronary syndrome. Review of symptoms otherwise negative. Troponins x 3 were negative. He was admitted to be managed for chest pain to rule out ACS. He had stress test on 07/11/2024 which showed no evidence of ischemia. Patient felt much better and was discharged home on 07/11/2024. He is follow-up with his primary care doctor within 1 to 2 weeks. Patient seen and examined prior to discharge. He felt well and had no complaints. He had an uneventful night. Review of systems otherwise negative. Labs and vitals reviewed. Home medications reviewed and reconciled. Physical Exam Const alert, oriented x3 and no apparent distress General Appearance: cooperative, comfortable and well kempt Exam Limitations: no limitations HEENT normocephalic, head/scalp atraumatic, hearing grossly normal bilaterally and moist oral mucous membranes Mouth: oral and palatal mucosa normal Eyes PERRL, EOMs intact bilaterally and conjunctivae normal Neck no lymphadenopathy and supple Resp normal respiratory effort, no retractions, no use of accessory muscles and clear to auscultation bilaterally Cardio regular rate, regular rhythm, S1 normal heart sound, S2 normal heart sound and no murmurs GI normal to inspection, nondistended, normoactive bowel sounds, soft to palpation, non-tender and non- distended Extremity normal to inspection, full ROM and no clubbing, cyanosis or edema Skin no rashes or lesions noted and no wounds Neuro oriented x3, CN's II-XII intact bilaterally and moves all extremities Sensorium / Orientation: awake and alert Motor Exam: strength 5/5 throughout Psych affect normal Weight / BMI Weight Weight: 225 lb 8.526 oz Body Mass Index (BMI) 35.3 ABG / Lab (more content not included)...[facility]10-15-2024 [facility] Medical Records Department [address] [place] [address] History Physical Exam 07/11/24 0352 MR#: [id number] Acct: [id number] Name: XAVI CABELLO Rep #: [id number] : 1955 69 From: Chirag Cristina MD PCP: Dr. Grant Krause MD Status:REG ER Location: ED HPI - General General Date of Admission: 07/11/24 Date of Service: 07/11/24 Chief Complaint: Chest pain HPI Narrative XAVI CABELLO, is a 69 M who presents with left arm pain radiating to his chest. Onset of symptoms began earlier this evening when he woke up with pain that he states felt like his previous acute coronary syndrome pain. Patient has a history of diabetes, hypertension, hyperlipidemia and obstructive sleep apnea and obesity. Initial set of cardiac markers are negative and EKGs negative for ST elevation. Last heart catheterization was 2021 that showed mild coronary disease at that time. Patient denies any fevers or chills, shortness of breath and/or nausea or vomiting. Patient will be admitted to progressive care unit for observation and rule out cardiac etiology. [facility] Medical History 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 Chest pain COVID-19 virus infection Essential hypertension Hyperlipidemia Hypertension Leg edema, left ALBAN on CPAP Presence of stent in coronary artery ( 04/05/12) Pure hypercholesterolemia Tinnitus Type II diabetes mellitus Home Medications ???Medication ???Instructions ???Recorded ???Last Taken ???Type aspirin 81 mg chewable tablet 81 mg PO DAILY@0800 07/20/15 05/26/22 History nitroglycerin 0.4 mg sublingual 0.4 mg sublingual Q5M PRN Chest 07/23/15 01/03/19 Rx tablet Pain #25 tabs tamsulosin 0.4 mg capsule 0.4 mg PO DAILY 09/08/16 01/03/19 History fenofibrate 160 mg tablet 160 mg PO DAILY 12/15/16 04/09/19 History albuterol sulfate 90 mcg/actuation 2 puff inhalation Q6H PRN 10/30/20 Unknown History aerosol inhaler (ProAir HFA) Shortness Of Breath Or Wheezing lisinopril 10 mg tablet 10 mg PO DAILY 10/30/20 05/26/22 History metoprolol tartrate 25 mg tablet 25 mg PO BID 05/08/21 05/26/22 History empagliflozin 25 mg tablet 25 mg PO DAILY 12/04/21 Unknown History (Jardiance) metformin 500 mg tablet 1,000 mg PO BID 12/04/21 05/25/22 History rosuvastatin 40 mg tablet 40 mg PO DAILY 12/04/21 Unknown History glipizide 2.5 mg tablet, extended 2.5 mg PO DAILY 05/14/23 Unknown History release 24 hr ranolazine 1,000 mg 1,000 mg PO BID #180 tabs 07/09/23 Unknown Rx tablet,extended release,12 hr (Ranexa) furosemide 20 mg tablet 20 mg PO DAILY #90 tabs 12/06/23 Unknown Rx gabapentin 100 mg capsule 100 mg PO BID 12/06/23 Unknown History potassium chloride 10 mEq 10 meq PO DAILY #90 tabs 12/06/23 Unknown Rx tablet,extended release sildenafil 50 mg tablet (Viagra) 50 mg PO QDAY PRN sexual activity 06/06/24 Unknown History Allergy/AdvReac Type Severity Reaction Status Date / Time No Known Allergies Allergy Verified 07/11/24 00:20 Family History Sister Hypertension Surgical History History of left heart catheterization (LHC) ( 05/26/22) History of umbilical hernia repair Presence of coronary angioplasty implant and graft ( 04/05/12) Social History (Updated 06/06/24 @ 13:53 by Suresh Beltran RN) Smoking Status: Never smoker alcohol intake: former substance use type: former substance user Date of last use: stopped marijuana caffeine: Yes ROS Constitutional Constitutional: Denies chills or fever(s) Eyes Eyes: Denies blurry vision ENT HEENT: Denies abnormal hearing Cardiovascular Cardiovascular: Reports chest pain Respiratory/Chest Respiratory/Chest: Denies cough Gastrointestinal Gastrointestinal: Denies abdominal pain Musculoskeletal Musculoskeletal: Reports extremity pain; Denies back pain Integumentary Integumentary: Reports dry skin Neurologic Neurologic: Denies abnormal gait Psychiatric Psychiatric: Denies anxiety Vital Signs Vital Signs Vital Signs: 07/11/24 00:20 07/11/24 00:28 07/11/24 00:30 Temperature 97.8 F Temperature Source Oral Pulse Rate 83 82 80 Respiratory Rate 16 18 17 Respiratory Effort Respiratory Pattern Blood Pressure 148/82 H Blood Pressure Mean 104 Pulse Ox 98 96 97 Oxygen Delivery Method Room Air 07/11/24 00:33 07/11/24 00:45 07/11/24 00:45 Temperature Temperature Source Pulse Rate 80 78 Respiratory Rate 27 H 18 Respiratory Effort Normal Respiratory Pattern Normal Blood Pressure 125/81 H 108/68 Blood Pressure Mean 95 80 Pulse Ox 97 95 Oxygen Delivery M (more content not included)...[facility] 06-23-2024 History of Present illness Narrative* Margarito Joseph - 06/23/2024 3:18 PM EDT Last saw pcp: 06/16/2024 Subjective: Patient presents to clinic c/o painful toenails. They state that the nails are especially painful with shoe gear and pressure. Patient states that nails 1-5 b/l are painful. Patient admits to being diabetic. No other pedal complaints at this time. Patient states no change in medications or medical history since last visit. Objective: Patient presents to clinic ambulating in [facility] Vasc: DP and PT pulses are palpable bilateral. CFT is less than 5 seconds bilateral. Skin temperature is warm to cool proximal to distal bilateral. There is mild edema or varicosities noted. Neuro: Protective sensation is intact to the foot and toes when tested with the 5.07 SWM bilateral.Vibratory sensation is decreased at the hallux IPJ bilateral. The hallux is downgoing bilateral. Derm: Nails 1-5 b/l are painful, discolored-yellow, thick, crumbly, dystrophic and with subungal debris. Skin is of normal turgor, texture and hair growth is decreased bilateral. There are no hyperkeratosis, ulcerations, scars, verruca or other lesions noted. Ortho: Muscle strength is 5/5 for all pedal groups tested. Ankle joint DF is decreased with the knee extended with no pain or crepitus noted. 1st MPJ ROM is decreased bilateral. Bunion is present to right foot Assessment: (B35.1) Onychomycosis (primary encounter diagnosis) (M79.675) Pain in toe of left foot (M79.674) Pain in toe of right foot (E11.42) Diabetic polyneuropathy associated with type 2 diabetes mellitus (HCC) (M20.10) Acquired hallux valgus, unspecified laterality Plan: Patient was seen and evaluated. Nails 1-5 bilateral were debrided in length and thickness. Patient was instructed on the continued importance of diabetic foot care along with proper diet andkeeping their blood sugar under control to prevent complications. Stressed the importance of avoiding barefoot walking, wearing good shoes and inspection of feet Patient has bunion of right foot. No pain. Will order diabetic shoes. Patient will benefti from diabetic shoes given bunion and neuopathy. Patient is to RTC in 3-4 months. Margarito Joseph DPM * Lupis Ramirez LPN - 06/23/2024 3:13 PM EDT AMB ROOMING INTAKE FLOWSHEET DATA Patient presents with: Left Foot - Established Patient, Diabetic Foot Care Right Foot - Established Patient, Diabetic Foot Care Lupis Ramirez LPN documented in [facility] encounterPar[facility] Instructions* Patient Instructions* Margarito Joseph - 06/23/2024 3:18 PM EDT Diabetes Foot Care Instructions When you have diabetes, proper foot care is very important. Poor foot care may lead to amputation of a foot or leg. As a person with diabetes, you are more vulnerable to foot problems, because diabetes can damage your nerves and reduce blood flow to your feet. Here are some diabetes foot care tips to follow: Wash and Dry Your Feet Daily Use mild soaps Use warm water Pat your skin dry; do not rub. Thoroughly dry your feet. After washing, use lotion on your feet to prevent cracking. Do not put lotion between your toes. Examine Your Feet Each Day Check the tops and bottoms of your feet. Have someone else look at your feet if you cannot see them. Check for dry, cracked skin. Look for blisters, cuts, scratches, or other sores. Check for redness, increased warmth, or tenderness when touching any area of your feet. Check for ingrown toenails, corns, and calluses. If you get a blister or sore from your shoes, do not pop it. Apply a bandage and wear a differentpair of shoes. Take Care of Your Toenails Cut toenails after bathing, when they are soft. Cut toenails straight across and smooth with a nail file. Avoid cutting into the corners of toes. Do not cut cuticles. If you have neuropathy (or decreased sensation in your feet) a director data processing should always cut your toenails. Be Careful When Exercising Walk and exercise in comfortable shoes. Do not exercise when you have open sores on your feet. Protect Your Feet With Shoes and Socks Never go barefoot. Always protect your feet by wearing shoes or hard-soled slippers or footwear. Avoid shoes with high heels and pointed toes. Avoid shoes that expose your toes or heels (such as open-toed shoes or sandals). These types of shoes increase your risk for injury and potential infections. Try on new footwear with the type of socks you usually wear. Do not wear new shoes for more than an hour at a time. Change your socks daily. Look and feel inside your shoes before putting them on to make sure there are no foreign objects orrough areas. Avoid tight socks. Wear natural-fiber socks (cotton, wool, or a cotton-wool blend). Wear special shoes if your health care provider recommends them. Wear shoes/boots that will protect your feet from various weather conditions (cold, moisture, etc.). Make sure your shoes fit properly. If you have neuropathy (nerve damage), you may not notice that your shoes are too tight. Perform the footwear test described below. Footwear Test Use this simple test to see if your shoes fit correctly: Stand on a piece of paper. (Make sure you are standing and not sitting, because your foot changes shape when you stand.) Trace the outline of your foot. Trace the outline of your shoe. Compare the tracings: Is the shoe too narrow? Is your foot crammed into the shoe? The shoe should be at least 1/2 inch longer than your longest toe and as wide as your foot. Proper Shoe Choices The following types of shoes are best for people with diabetes Closed toes and heels Leather uppers without a seam inside At least 1/2 inch extra space at the end of your longest toe Inside of shoe should be soft with no rough areas Outer sole should be made of stiff material Shoes should be at least as wide as your feet Tips for Foot Care in Diabetes Don't wait to treat a minor foot problem if you have diabetes. Follow your health care provider's guidelines and first aid guidelines. Report foot injuries and infections to your health care provider immediately. Check water temperature with your elbow, not your foot. Do not use a heating pad on your feet. Do not cross your legs. Do not self-treat your corns, calluses, or other foot problems. Go to your health care provider or director data processing to treat these conditions. documented in this encounterPar[facility]09-[facility]24 Telephone encounter Note * Telephone Encounter - Hillary Flores LPN - 06/21/2024 4:00 PM EDT Pt notified. [facility] Miscellaneous Notes* Telephone Encounter - Hillary Flores LPN - 06/21/2024 4:00 PM EDT Pt notified. * Telephone Encounter - Liat Smith APRN.CNP - 06/21/2024 3:58 PM EDT Please remind patient regarding time line for medication refills Liat Smith APRN.CNP * Telephone Encounter - Amanda Bueno - 06/21/2024 2:11 PM EDT Prescription Refill Information The patient has been identified by name and date of : Yes Caregiver verified no other encounters exist for this prescription request: Yes Caregiver confirmed with patient/requestor that no other refills are due, in the near future, with this provider at this time: Yes NOTE: please send RX today, patient is completely out of this medication The last office visit in the department: 06/16/2024 Does the patient have a future office visit with this provider/department: Yes Requested Prescriptions Pending Prescriptions Disp Refills albuterol HFA (PROVENTIL HFA, VENTOLIN HFA) 90 mcg/actuation inhaler 18 g 5 Sig: Inhale 2 Puffs as instructed every 6 hours as needed for wheezing/shortness of breath. Amanda Dallas June 21, 2024 2:12 PM documented in this encounterPar[facility]09-[facility]-2024 Telephone encounter Note * Telephone Encounter - Liat Smith APRN.CNP - 06/21/2024 3:58 PM EDT Please remind patient regarding time line for medication refills Liat Smith APRN.CNP [facility] Telephone encounter Note* Telephone Encounter - Amanda Bueno - 06/21/2024 2:11 PM EDT Prescription Refill Information The patient has been identified by name and date of : Yes Caregiver verified no other encounters exist for this prescription request: Yes Caregiver confirmed with patient/requestor that no other refills are due, in the near future, with this provider at this time: Yes NOTE: please send RX today, patient is completely out of this medication The last office visit in the department: 06/16/2024 Does the patient have a future office visit with this provider/department: Yes Requested Prescriptions Pending Prescriptions Disp Refills albuterol HFA (PROVENTIL HFA, VENTOLIN HFA) 90 mcg/actuation inhaler 18 g 5 Sig: Inhale 2 Puffs as instructed every 6 hours as needed for wheezing/shortness of breath. Amanda Dallas June 21, 2024 2:12 PM [facility] Telephone encounter Note* Telephone Encounter - Jovita Gonzales LPN - 06/20/2024 1:26 PM EDT The patient has been identified by name and date of : Yes Caregiver verified no other encounters exist for this prescription request: Yes Caregiver confirmed with patient/requestor that no other refills are due, in the near future, with this provider at this time: Yes The last office visit in the department: 06/16/2024 Does the patient have a future office visit with this provider/department: Yes 10/09/2024 Requested Prescriptions Pending Prescriptions Disp Refills metoprolol tartrate, short acting, (LOPRESSOR) 25 mg tablet 180 tablet 3 Sig: Take 1 tablet by mouth two times a day. Jovita Gonzales LPN June 20, 2024 1:28 PM [facility]-24-[facility] Miscellaneous Notes* Telephone Encounter - Jovita Gonzales LPN - 06/20/2024 1:26 PM EDT The patient has been identified by name and date of : Yes Caregiver verified no other encounters exist for this prescription request: Yes Caregiver confirmed with patient/requestor that no other refills are due, in the near future, with this provider at this time: Yes The last office visit in the department: 06/16/2024 Does the patient have a future office visit with this provider/department: Yes 10/09/2024 Requested Prescriptions Pending Prescriptions Disp Refills metoprolol tartrate, short acting, (LOPRESSOR) 25 mg tablet 180 tablet 3 Sig: Take 1 tablet by mouth two times a day. Jovita Gonzales LPN June 20, 2024 1:28 PM documented in this encounterPar[facility]09-23-2024 Telephone encounter Note * Telephone Encounter - Johanny Palomo LPN - 06/19/2024 7:03 PM EDT Patient notified, verbalized understanding. Johanny Palomo LPN [facility]09-23-[facility] Miscellaneous Notes* Telephone Encounter - Johanny Palomo LPN - 06/19/2024 7:03 PM EDT Patient notified, verbalized understanding. Johanny Palomo LPN * Telephone Encounter - Johanny Palomo LPN - 06/19/2024 4:01 PM EDT TC, Patient is unavailable, will try again later. Johanny Palomo LPN * Telephone Encounter - Marino Weiss MA - 06/19/2024 11:21 AM EDT TC to pt. Unable to reach. No option to LM. Will try again at a later time. * Telephone Encounter - Marino Weiss MA - 06/19/2024 11:20 AM EDT ----- Message from Grant Krause MD sent at 06/17/2024 11:00 AM EDT ----- Stable kidney disease. Overall okay. documented in this encounterPar[facility]09-23-2024 Telephone encounter Note * Telephone Encounter - Johanny Palomo LPN - 06/19/2024 4:01 PM EDT TC, Patient is unavailable, will try again later. Johanny Palomo LPN [facility] Telephone encounter Note* Telephone Encounter - Marino Weiss MA - 06/19/2024 11:21 AM EDT TC to pt. Unable to reach. No option to LM. Will try again at a later time. [facility] Telephone encounter Note* Telephone Encounter - Marino Weiss MA - 06/19/2024 11:20 AM EDT ----- Message from Grant Krause MD sent at 06/17/2024 11:00 AM EDT ----- Stable kidney disease. Overall okay. [facility] History of Present illness Narrative* Grant Krause MD - 06/16/2024 3:19 PM EDT This note was created using NoteWriter. Subjective Xavi Cabello is a 69 year old male. On 06/02/24, he had an episode of prolonged standing, talking with a friend, that caused some numbness in his right leg. He started moving around to alleviate the numbness and his right leg gave out and he fell. He had no other symptoms, and was able to get up quickly with no further symptoms. [place] walked around [place] with no difficulty. He saw Dr. Cordova after that but did not seem to mention this to him. He had an echo done in December with no significant findings. He was asking if he needed a brain scan. Review of Systems Constitutional: Negative for diaphoresis, fatigue and fever. Respiratory: Negative for chest tightness and shortness of breath. Cardiovascular: Negative for chest pain and palpitations. Gastrointestinal: Negative for blood in stool, diarrhea, nausea and vomiting. Neurological: Negative for dizziness, syncope, facial asymmetry, numbness and headaches. ACTIVE PROBLEM LIST Mixed Hyperlipidemia Type 2 Diabetes Mellitus With Stage 3a Chronic Kidney Disease, Without Long-Term Current Use of Insulin (Hcc) Cad (Coronary Artery Disease), [place] Coronary Artery Stented Coronary Artery Benign Prostatic Hyperplasia Without Lower Urinary Tract Symptoms Marijuana Use Essential Hypertension Male Erectile Dysfunction, Unspecified Tubular Adenoma of Colon Obstructive Sleep Apnea Nocturnal Hypoxia Bronchitis With Bronchospasm Erectile Dysfunction Tinnitus Oral Dyskinesia Primary Osteoarthritis of Left Knee Obesity, Class II, Bmi 35-39.9 History of Colonic Polyps Social History Tobacco Use Smoking status: Never Smokeless tobacco: Never Vaping Use Vaping status: Never Used Substance Use Topics 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 For cholesterol. glipiZIDE (GLUCOTROL XL) 2.5 mg 24 hr tablet Take 1 tablet by mouth once daily. sildenafil (VIAGRA) 100 mg tablet Take 1 tablet by mouth once daily as needed. Take 30-60 minutes before sexual activity. gabapentin (NEURONTIN) 100 mg capsule Take 1 capsule by mouth two times a day for 180 days. metFORMIN (GLUCOPHAGE) 500 mg tablet Take 2 tablets by mouth two times a day with meals. . lisinopril (ZESTRIL) 10 mg tablet Take 1 tablet by mouth once daily. tamsulosin (FLOMAX) 0.4 mg Take 1 capsule by mouth once daily. furosemide (LASIX) 20 mg tablet Take 1 tablet by mouth once daily. From [facility]. potassium chloride (K-TAB) 10 mEq tablet Take 1 tablet by mouth daily with breakfast. [facility]. empagliflozin (JARDIANCE) 25 mg tablet Take 1 tablet by mouth once daily. Take 1 tablet once daily in the morning nitroglycerin sublingual (NITROQUICK) 0.4 mg SL tablet Dissolve 1 tablet under the tongue as neededfor chest pain. Fenofibrate (LOFIBRA) 160 mg tablet Take 1 tablet by mouth once daily. metoprolol tartrate, short acting, (LOPRESSOR) 25 mg tablet Take 1 tablet by mouth twice daily. albuterol HFA (PROVENTIL HFA, VENTOLIN HFA) 90 mcg/actuation inhaler Inhale 2 Puffs as instructed every 6 hours as needed for wheezing/shortness of breath. ranolazine SR (RANEXA) 1,000 mg tab ER 12 hr Take 1 tablet by mouth twice daily. Per CARDIOLOGY. CPAP Settings 5 - 15 cm H2O, suitable mask per pt preference, chin strap, head gear, humidity, tubing, lifetime supplies. G47.33 Obstructive Sleep Apnea aspirin, enteric coated (ECOTRIN LOW STRENGTH) 81 mg EC tablet Take 1 tablet by mouth once daily. No current facility-administered medications for this visit. Objective BP 118/82 (BP Site: Left Arm, BP Position: Sitting, BP Cuff Size: Regular Adult) Pulse 72 Temp 36.3 C (97.4 F) (Temporal) Resp 18 Wt 99.2 kg (218 lb 11.1 oz) SpO2 96% BMI 35.03 kg/m Physical Exam Constitutional: General: He is not in acute distress. Appearance: He is not ill-appearing or diaphoretic. HENT: Head: Atraumatic. Mouth/Throat: Mouth: Mucous membranes are moist. Eyes: Extraocular Movements: Extraocular movements intact. Conjunctiva/sclera: Conjunctivae normal. Neck: Vascular: No carotid bruit. Cardiovascular: Rate and Rhythm: Normal rate and regular rhythm. Heart sounds: No murmur heard. No gallop. Pulmonary: Breath sounds: Normal breath sounds. Abdominal: Tenderness: There is no abdominal tenderness. Musculoskeletal: Right lower leg: No edema. Left lower leg: No edema. Neurological: General: No focal deficit present. Mental Status: He is alert. Cranial Nerves: No cranial nerve deficit. Sensory: No sensory deficit. Motor: No weakness. Gait: Gait normal. Comments: No automatism noted. Orthostatic Vitals: Supine 110/70 P 70 Sitting 116/68 P 82. Assessment and Plan 1. Fall, initial encounter - ICD9: E888.9, ICD10: W19.XXXA (primary diagnosis) Etiology not clear. I advised against brain CT scan. - COMPLETE BLOOD COUNT 2. Mixed hyperlipidemia - ICD9: 272.2, ICD10: E78.2 - Controlled - FENOFIBRATE 160 MG TABLET 3. Encounter for immunization - ICD9: V03.89, ICD10: Z23 - INFLUENZA VACCINE, PRSV FREE, AGE 65+ YR, HIGH DOSE, TRIVALENT (FLUZONE HIGH-DOSE) 4. Type 2 diabetes mellitus with stage 3a chronic kidney disease, without long- term current use of insulin (HCC) - ICD9: 250.40, 585.3, ICD10: E11.22, N18.31 - Control undetermined, due for labs - Continue current medications - eGFR: 50 Due for labs - BASIC METABOLIC PANEL - HEMOGLOBIN A1C 5. Coronary artery disease involving squaxin coronary artery of squaxin heart without angina pectoris- ICD9: 414.01, ICD10: I25.10 - Stable. 6. Oral dyskinesia - ICD9: 333.82, ICD10: G24.4 - Controlled. Grant Krause MD documented in this encounterPar[facility]09-[facility] History of Present illness Narrative* Nilda Kim PA-C - 06/05/2024 2:33 PM EDTAssociated Order(s): Large Joint Arthro/Inj: L knee joint Post-Procedure Diagnose(s): Primary osteoarthritis of left knee Large Joint Arthro/Inj: L knee joint Informed Consent Consent Obtained: Verbal [place] Protocol A moment to CARE was completed. SIGN IN Sign in communication not applicable due to emergent procedure. Personnel directly involved with the procedure wore the appropriate PPE. Special Equipment: N/A Patient/Surrogate Stated/Verified: Patient name, Date of , Relevant allergies and Intended procedure TIME OUT Intended patient and procedure match the source document(s). Relevant labs, photos, and/or imaging studies have been reviewed. Correct side/site marked and visible. Medications required for procedure verified. No fire risk assessment and interventions applicable. No implant(s) inserted. 06/05/2024 2:33 PM The procedure site was prepped in the usual sterile fashion. Site: L knee joint Medications: 6 mg betamethasone acetate-betamethasone sodium phosphate 6 mg/mL Anesthetics: 4 mL lidocaine (PF) 10 mg/mL (1 %) Outcome: Tolerated well, no immediate complications Post-injection instructions were reviewed with the patient and the patient voiced understanding of these instructions. SIGN OUT No specimen collected. All instruments, equipment, possible retained foreign bodies accounted for. Post-procedure follow-up management communicated and Plan of Care Visit completed when applicable * Arabella Cohen MA - 06/05/2024 2:03 PM EDT AMB ROOMING INTAKE FLOWSHEET DATA Pain Pain Level: 5 Pain Location: Knee-Left Description: Dull, Aching Duration Amount of Time: (ongoing) Frequency: Intermittent Intervention/Comfort measure: Other: See comment (none) Patient here today for 16 weeks post visit OA left knee with injection given. He would like an injection today. documented in this encounterPar[facility]08-[facility]-2024 Telephone encounter Note * Telephone Encounter - Rupali Villatoro RN - 05/05/2024 12:38 PM EDT Pt only has two pills left. The patient has been identified by name and date of : Yes Caregiver verified no other encounters exist for this prescription request: Yes Caregiver confirmed with patient/requestor that no other refills are due, in the near future, with this provider at this time: Yes The last office visit in the department: 02/22/2024 Does the patient have a future office visit with this provider/department: Yes 06/16/2024 Requested Prescriptions Pending Prescriptions Disp Refills rosuvastatin (CRESTOR) 40 mg tablet 90 tablet 1 Sig: Take 1 tablet by mouth daily at bedtime. For cholesterol. Rupali Villatoro RN May 05, 2024 12:39 PM [facility] Miscellaneous Notes* Telephone Encounter - Rupali Villatoro RN - 05/05/2024 12:38 PM EDT Pt only has two pills left. The patient has been identified by name and date of : Yes Caregiver verified no other encounters exist for this prescription request: Yes Caregiver confirmed with patient/requestor that no other refills are due, in the near future, with this provider at this time: Yes The last office visit in the department: 02/22/2024 Does the patient have a future office visit with this provider/department: Yes 06/16/2024 Requested Prescriptions Pending Prescriptions Disp Refills rosuvastatin (CRESTOR) 40 mg tablet 90 tablet 1 Sig: Take 1 tablet by mouth daily at bedtime. For cholesterol. Rupali Villatoro RN May 05, 2024 12:39 PM documented [facility] Telephone encounter Note * Telephone Encounter - Lesa Ledesma - 04/27/2024 10:30 AM EDT Prescription Refill Information The patient has been identified by name and date of : Yes Caregiver verified no other encounters exist for this prescription request: Yes Caregiver confirmed with patient/requestor that no other refills are due, in the near future, with this provider at this time: Yes The last office visit in the department: 02-18-24 Does the patient have a future office visit with this provider/department: Yes Requested Prescriptions Pending Prescriptions Disp Refills glipiZIDE XL (GLUCOTROL XL) 2.5 mg 24 hr tablet 30 tablet 5 Sig: Take 1 tablet by mouth once daily. Lesa Ledesma April 27, 2024 10:30 AM [facility]08-01-2024 Miscellaneous Notes* Telephone Encounter - Lesa Ledesma - 04/27/2024 10:30 AM EDT Prescription Refill Information The patient has been identified by name and date of : Yes Caregiver verified no other encounters exist for this prescription request: Yes Caregiver confirmed with patient/requestor that no other refills are due, in the near future, with this provider at this time: Yes The last office visit in the department: 02-18-24 Does the patient have a future office visit with this provider/department: Yes Requested Prescriptions Pending Prescriptions Disp Refills glipiZIDE XL (GLUCOTROL XL) 2.5 mg 24 hr tablet 30 tablet 5 Sig: Take 1 tablet by mouth once daily. Lesa Ledesma April 27, 2024 10:30 AM documented in this encounterPar[facility] Evaluation note* Diagnosis Type 2 diabetes mellitus with stage 3a chronic kidney disease, without long-term current use of insulin (HCC) documented in this encounter [facility] Telephone encounter Note* Telephone Encounter - Grant Krause MD - 04/18/2024 6:48 PM EDT The following approved medication requests have been transmitted electronically. Requested Prescriptions Signed Prescriptions Disp Refills sildenafil (VIAGRA) 100 mg tablet 5 tablet 2 Sig: Take 1 tablet by mouth once daily as needed. Take 30-60 minutes before sexual activity. Authorizing Provider: GRANT KRAUSE MD [facility] Miscellaneous Notes* Telephone Encounter - Grant Krause MD - 04/18/2024 6:48 PM EDT The following approved medication requests have been transmitted electronically. Requested Prescriptions Signed Prescriptions Disp Refills sildenafil (VIAGRA) 100 mg tablet 5 tablet 2 Sig: Take 1 tablet by mouth once daily as needed. Take 30-60 minutes before sexual activity. Authorizing Provider: GRANT KRAUSE MD * Telephone Encounter - Johanny Palomo LPN - 04/18/2024 4:30 PM EDT Spoke to Xavi, he is wanting an increase in strength, he is taking 30 minutes prior to sexual intercourse, states sometimes it does not seem like the medications works. Please review/advise. Johanny Palomo LPN * Telephone Encounter - Lesa Ledesma - 04/18/2024 4:12 PM EDT Prescription Refill Information The patient has been identified by name and date of : Yes Caregiver verified no other encounters exist for this prescription request: Yes Caregiver confirmed with patient/requestor that no other refills are due, in the near future, with this provider at this time: Yes The last office visit in the department: 02-22-24 Does the patient have a future office visit with this provider/department: Yes Requested Prescriptions Pending Prescriptions Disp Refills sildenafil (VIAGRA) 50 mg tablet 5 tablet 5 Sig: Take 1 tablet by mouth as needed. Take 1/2 hour before sexual activity, as directed for e.d. Patient asking to increase dosage. Lesa Ledesma April 18, 2024 4:13 PM documented in this encounterPar[facility]07[facility]24 Telephone encounter Note * Telephone Encounter - Johanny Palomo LPN - 04/18/2024 4:30 PM EDT Spoke to Xavi, he is wanting an increase in strength, he is taking 30 minutes prior to sexual intercourse, states sometimes it does not seem like the medications works. Please review/advise. Johanny Palomo LPN [facility]07-23-[facility] Telephone encounter Note* Telephone Encounter - Lesa Ledesma - 04/18/2024 4:12 PM EDT Prescription Refill Information The patient has been identified by name and date of : Yes Caregiver verified no other encounters exist for this prescription request: Yes Caregiver confirmed with patient/requestor that no other refills are due, in the near future, with this provider at this time: Yes The last office visit in the department: 02-22-24 Does the patient have a future office visit with this provider/department: Yes Requested Prescriptions Pending Prescriptions Disp Refills sildenafil (VIAGRA) 50 mg tablet 5 tablet 5 Sig: Take 1 tablet by mouth as needed. Take 1/2 hour before sexual activity, as directed for e.d. Patient asking to increase dosage. Lesa Ledesma April 18, 2024 4:13 PM [facility] Telephone encounter Note* Telephone Encounter - Ivonne Luz - 04/12/2024 4:13 PM EDT Prescription Refill Information The patient has been identified by name and date of : Yes Caregiver verified no other encounters exist for this prescription request: Yes Caregiver confirmed with patient/requestor that no other refills are due, in the near future, with this provider at this time: Yes The last office visit in the department: 02/22/24 Does the patient have a future office visit with this provider/department: Yes Requested Prescriptions Pending Prescriptions Disp Refills sildenafil (VIAGRA) 50 mg tablet 5 tablet 5 Sig: Take 1 tablet by mouth as needed. Take 1/2 hour before sexual activity, as directed for e.d. Ivonne Taylor April 12, 2024 4:14 PM [facility] Miscellaneous Notes* Telephone Encounter - Ivonne Luz - 04/12/2024 4:13 PM EDT Prescription Refill Information The patient has been identified by name and date of : Yes Caregiver verified no other encounters exist for this prescription request: Yes Caregiver confirmed with patient/requestor that no other refills are due, in the near future, with this provider at this time: Yes The last office visit in the department: 02/22/24 Does the patient have a future office visit with this provider/department: Yes Requested Prescriptions Pending Prescriptions Disp Refills sildenafil (VIAGRA) 50 mg tablet 5 tablet 5 Sig: Take 1 tablet by mouth as needed. Take 1/2 hour before sexual activity, as directed for e.d. Ivonne Taylor April 12, 2024 4:14 PM documented in [facility] encounterPar[facility]07-[facility]24 Telephone encounter Note * Telephone Encounter - Lisa Gillespie - 04/10/2024 2:17 PM EDT Patient has been identified by name and date of : Yes, Patient phones for refill(s): Requested Prescriptions Pending Prescriptions Disp Refills gabapentin (NEURONTIN) 100 mg capsule 180 capsule 1 Sig: Take 1 capsule by mouth two times a day for 180 days. Date of last office visit in primary care: 02/22/2024 Date of next office visit in primary care: 06/16/2024 Please advise. Thank you. Lisa Gillespie. [facility]07-15-[facility] Miscellaneous Notes* Telephone Encounter - Lisa Gillespie - 04/10/2024 2:17 PM EDT Patient has been identified by name and date of : Yes, Patient phones for refill(s): Requested Prescriptions Pending Prescriptions Disp Refills gabapentin (NEURONTIN) 100 mg capsule 180 capsule 1 Sig: Take 1 capsule by mouth two times a day for 180 days. Date of last office visit in primary care: 02/22/2024 Date of next office visit in primary care: 06/16/2024 Please advise. Thank you. Lisa Gillespie. documented in this encounterPar[facility]06[facility] History of Present illness Narrative* Margarito Joseph - 03/23/2024 2:06 PM EDT Last saw pcp: 02/07/24 Subjective: Patient presents to clinic c/o painful toenails. They state that the nails are especially painful with shoe gear and pressure. Patient states that nails b/l hallux are painful. Patient admits to being diabetic. No other pedal complaints at this time. Patient states no change in medications or medical history since last visit. Objective: Patient presents to clinic ambulating in nike Vasc: DP and PT pulses are nonpalpable bilateral. CFT is less than 5 seconds bilateral. Skin temperature is warm to cool proximal to distal bilateral. There is moderate edema or varicosities noted. Neuro: Protective sensation is decreased to the foot and toes when tested with the 5.07 SWM bilateral. Vibratory sensation is absent at the hallux IPJ bilateral. The hallux is downgoing bilateral. Derm: Nails 1-5 b/l are painful, discolored-yellow, thick, crumbly, dystrophic and with subungal debris. Skin is of normal turgor, texture and hair growth is absent bilateral. There are no hyperkeratosis, ulcerations, scars, verruca or other lesions noted. Ortho: Muscle strength is 5/5 for all pedal groups tested. Ankle joint DF is decreased with the knee extended with no pain or crepitus noted. 1st MPJ ROM is decreased bilateral. Bunion is present to b/l feet Assessment: (B35.1) Onychomycosis (primary encounter diagnosis) (M79.675) Pain in toe of left foot (M79.674) Pain in toe of right foot (E11.42) Diabetic polyneuropathy associated with type 2 diabetes mellitus (HCC) (M20.10) Acquired hallux valgus, unspecified laterality (M20.12) Hallux valgus of left foot Plan: Patient was seen and evaluated. Nails 1-5 bilateral were debrided in length and thickness. Q8 modifier Patient was instructed on the continued importance of diabetic foot care along with proper diet andkeeping their blood sugar under control to prevent complications. Discussed his neuropathy. Stressed the importance of good shoes and avoiding barefoot walking With his bunions, recommend wider shoes Patient is to RTC in 3-4 months. Margarito Joseph DPM * Lupis Ramirez LPN - 03/23/2024 1:48 PM EDT AMB ROOMING INTAKE FLOWSHEET DATA Patient presents with: Left Foot - Established Patient, Diabetic Foot Care Right Foot - Established Patient, Diabetic Foot Care Lupis Ramirez LPN documented in this encounterPar[facility]05[facility]24 Telephone encounter Note * Telephone Encounter - Lisa Gillespie - 02/25/2024 11:57 AM EDT Patient is out of this medication-please expedite. Patient has been identified by name and date of : Yes, Patient phones for refill(s): Requested Prescriptions Pending Prescriptions Disp Refills metFORMIN (GLUCOPHAGE) 500 mg tablet 120 tablet 11 Sig: Take 2 tablets by mouth two times a day with meals. . Date of last office visit in primary care: 02/22/2024 Date of next office visit in primary care: 06/16/2024 Please advise. Thank you. Lisa Gillespie. [facility] Miscellaneous Notes* Telephone Encounter - Lisa Gillespie - 02/25/2024 11:57 AM EDT Patient is out of this medication-please expedite. Patient has been identified by name and date of : Yes, Patient phones for refill(s): Requested Prescriptions Pending Prescriptions Disp Refills metFORMIN (GLUCOPHAGE) 500 mg tablet 120 tablet 11 Sig: Take 2 tablets by mouth two times a day with meals. . Date of last office visit in primary care: 02/22/2024 Date of next office visit in primary care: 06/16/2024 Please advise. Thank you. Lisa Gillespie. documented in this encounterPar[facility]05-[facility] History of Present illness Narrative* Liat Smith, HIGH 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 - 02/22/2024 1:02 PM EDT Patient was seen two weeks ago for medicare wellness and follow-up. He called and scheduled anotheroffice visit today but he is unsure if he was told to schedule this and why. He thinks maybe this is to review his BP however it has been normal in the office and already scheduled for routine follow-ups in May and September. He states he would like to have an x-ray of my brain to check for Parkinson's, Alzheimers, etc. He denies any symptoms, just wants done out of curiosity. I advised patient his insurance would not pay for any type of brain scan unless he was symptomatic. He again denied symptoms. Denies any other concerns today, I will not charge patient for this appointment Liat Smith APRN.BOB documented in this encounterPar[facility]05[facility]24 History of Present illness Narrative* Nilda Kim PA-C - 02/14/2024 1:53 PM EDTAssociated Order(s): Large Joint Arthro/Inj: L knee joint Post-Procedure Diagnose(s): Primary osteoarthritis of left knee Large Joint Arthro/Inj: L knee joint Informed Consent Consent Obtained: Verbal [place] Protocol A moment to CARE was completed. SIGN IN Sign in communication not applicable due to emergent procedure. Personnel directly involved with the procedure wore the appropriate PPE. Special Equipment: N/A Patient/Surrogate Stated/Verified: Patient name, Date of , Relevant allergies and Intended procedure TIME OUT Intended patient and procedure match the source document(s). Relevant labs, photos, and/or imaging studies have been reviewed. Correct side/site marked and visible. Medications required for procedure verified. No fire risk assessment and interventions applicable. No implant(s) inserted. 02/14/2024 1:53 PM The procedure site was prepped in the usual sterile fashion. Site: L knee joint Medications: 6 mg betamethasone acetate-betamethasone sodium phosphate 6 mg/mL Anesthetics: 4 mL lidocaine (PF) 10 mg/mL (1 %) Outcome: Tolerated well, no immediate complications Post-injection instructions were reviewed with the patient and the patient voiced understanding of these instructions. SIGN OUT All instruments, equipment, possible retained foreign bodies accounted for. * Lupis Ramirez LPN - 02/14/2024 1:14 PM EDT AMB ROOMING INTAKE FLOWSHEET DATA Pain Pain Level: 3 Pain Location: Knee-Left Description: Sore Duration Units: Months Frequency: Intermittent Intervention/Comfort measure: Reposition, Relaxation Patient presents with: Left Knee - Established Patient, Follow Up, Injections, Knee Pain 14 week post visit OA left knee with injection. Wants injection. Lupis Ramirez LPN documented in this encounterPar[facility]05-[facility]24 Telephone encounter Note * Telephone Encounter - Marbella Reeves RN - 02/09/2024 1:44 PM EDT Spoke with patient. Given message from provider's office. Patient verbalizes understanding. Marbella Reeves RN [facility]05-[facility] Miscellaneous Notes* Telephone Encounter - Marbella Reeves RN - 02/09/2024 1:44 PM EDT Spoke with patient. Given message from provider's office. Patient verbalizes understanding. Marbella Reeves RN * Telephone Encounter - Gerda Hsieh LPN - 02/09/2024 8:26 AM EDT Attempted to reach pt by phone without success. No voicemail. Try later. eGrda Hsieh LPN * Telephone Encounter - Gerda Hsieh LPN - 02/09/2024 8:26 AM EDT ----- Message from Liat Smith APRN.BRAKE MACHINE OPERATOR sent at 02/09/2024 7:33 AM EDT ----- Please let the patient know kidney function remains decreased but better than previous in November. Stress importance of staying hydrated, limiting salt intake, keeping BP controlled and avoiding NSAID's Liat Smith APRN.BRAKE MACHINE OPERATOR documented in this encounterPar[facility]05-[facility]-2024 Telephone encounter Note * Telephone Encounter - Gerda Hsieh LPN - 02/09/2024 8:26 AM EDT Attempted to reach pt by phone without success. No voicemail. Try later. Gerda Hsieh LPN [facility]05-15-[facility] Telephone encounter Note* Telephone Encounter - Gerda Hsieh LPN - 02/09/2024 8:26 AM EDT ----- Message from Liat Smith APRN.BRAKE MACHINE OPERATOR sent at 02/09/2024 7:33 AM EDT ----- Please let the patient know kidney function remains decreased but better than previous in November. Stress importance of staying hydrated, limiting salt intake, keeping BP controlled and avoiding NSAID's Liat Smith APRN.BRAKE MACHINE OPERATOR [facility]-13[facility] Instructions* Patient Instructions* Liat Smith APRN.BRAKE MACHINE OPERATOR - 02/07/2024 1:03 PM EDT Screening schedule The following prevention plan is recommended: DTaP,Tdap,Td Vaccine(2 - Td or Tdap) due on 07/28/2017 Covid-19 Vaccine(2022-24 season) due on 05/28/2023 WHAT YOU CAN DO TO PREVENT FALLS Many falls can be prevented. By making some changes, you can lower your chances of falling. Four things YOU can do to prevent falls for you* and your caregiver 1. Begin a regular exercise program Exercise is one of the most important ways to lower your chances of falling. It makes you stronger and helps you feel better. Exercises that improve balance and coordination (like Richy Chi) are the most helpful. Lack of exercise leads to weakness and increases your chances of falling. Ask your doctor or health care provider about the best type of exercise program for you. 2. Have your health care provider review your medicines Have your doctor or pharmacist review all the medicines you take, even [id number] medicines. As you get older, the way medicines work in your body can change. Some medicines, or combinations of medicines, can make you sleepy or dizzy andcan cause you to fall. 3. Have your vision checked Have your eyes checked by an eye doctor at least once a year. You may be wearing the wrong glasses or have a condition like glaucoma or cataracts that limits your vision. Poor vision can increase your chances of falling. 4. Make your home safer About half of all falls happen at home. To make your home safer: Remove things you can trip over (like papers, books, clothes, and shoes) from stairs and places where you walk. Remove small throw rugs or use double-sided tape to keep the rugs from slipping. Keep items you use often in cabinets you can reach easily without using a step stool. Have grab bars put in next to your toilet and in the tub or shower. Use non-slip mats in the bathtub and on shower floors. Improve the lighting in your home. As you get older, you need brighter lights to see well. Hang light-weight curtains or shades to reduce glare. Have handrails and lights put in on all staircases. Wear shoes both inside and outside the house. Avoid going barefoot or wearing slippers. For more information, contact: Centers for Disease Control and Prevention www.cdc.gov/injury * This information may not apply if you have certain medical conditions. documented in this encounterPar[facility]05-[facility]-2024 History of Present illness Narrative* Liat Smith APRN.CNP - 02/07/2024 1:01 PM EDT Xavi Cabello is a 69 year old male here for a Medicare wellness visit. Medicare Health Risk Assessment General Health Very good Exercise: Minutes/Day 0 min Exercise: Days/Week 0 days Alcohol: Daily Use Never Alcohol: Drinks/Day Patient does not drink Alcohol: 6 or more drinks Never Feel off balance Yes Concerns: Teeth/Dentures No Concerns: Sexual function No Troubled by feelings None of the above Frequency: Eating healthy diet More than half the days ADLs requiring help None of the above Safety precautions in home/vehicle Yes Smoke, vape, chews tobacco No Difficulty hearing Yes Difficulty seeing Yes Current Providers Specialists: I have reviewed specialist-related care of the patient in the medical record. Current care team: Patient Care Team: Grant Krause MD as PCP - General Dr. Joseph- Podiatry [facility] Outside specialists seen: [facility], [facility] Medical/Family history review Reviewed and updated problem list, medical/surgical/family/social history, medications, and allergies. Opioid use review Opioid Medications (last 90 days) No data to display Depression screening Depression Screening PHQ-2 Score MAT-2 Total Score 02/07/2024 0 0 Depression screening tool completed and reviewed. Based on score and interview, patient is not at risk for depression. Screening tool discussed with patient, and I recommended no further interventionat this time. Cognitive screening Mini Cog Score: 4 Cognitive screening reviewed and No further action needed (score 3-5). Functional Observation Was the patient's Timed Up & Go test unsteady or ? 12 seconds? No Advance Care Planning Surrogate decision maker documented and/or advance directives scanned in chart Measurements BP 110/68 Pulse 69 Resp 16 Ht 5' 6.25 (1.68m) Wt 225 lb (102.1kg) SpO2 94% BMI 36.03 kg/(m^2). Vision Screening: Follows with optometry/ophthalmology Assessment/Plan Medicare annual wellness visit, subsequent (Z00.00) - Counseled on healthy diet and regular exercise - Fall avoidance information provided - Personalized prevention plan provided - Discussed need for and benefit of weight loss. BMI 36.04 kg/(m^2) 2. Renal insufficiency - ICD9: 593.9, ICD10: N28.9 Worsening on last labs in November, ordered by cardiology but unsure if ever addressed. - recheck BASIC METABOLIC PANEL today Liat Smith APRN.BRAKE MACHINE OPERATOR documented in this encounterPar[facility]04-19-2024 Miscellaneous Notes* Telephone Encounter - Malia Arndt LPN - 01/14/2024 1:34 PM EDT Patient has been identified by name and date of : Patient phones for refill(s): Requested Prescriptions Pending Prescriptions Disp Refills tamsulosin (FLOMAX) 0.4 mg 90 capsule 3 Sig: Take 1 capsule by mouth once daily. Date of last office visit in primary care: 10/08/2023 Date of next office visit in primary care: 02/07/2024 Please advise. Thank you. Malia Arndt LPN. documented in this encounterPar[facility]04-17-2024 Miscellaneous Notes* Telephone Encounter - Gerda Hsieh LPN - 01/12/2024 3:01 PM EDT Patient has been identified by name and date of : Yes, Provider Dr Krause Date 01/12/24 Time3:01 pm Patient phones for refill(s): Requested Prescriptions Pending Prescriptions Disp Refills lisinopril (ZESTRIL) 10 mg tablet 90 tablet 0 Sig: Take 1 tablet by mouth once daily. Date of last office visit in primary care: 10/08/2023 Date of next office visit in primary care: 02/07/2024 Please advise pt. Thank you. Gerda Hsieh LPN. documented in this encounterPar[facility]03-12-2024 Miscellaneous Notes* Telephone Encounter - Lynda Dickens RN - 12/07/2023 4:29 PM EDT Pt wanted to let pcp know: he saw [facility] yesterday, and they prescribed him 2 new medications: Furosemide 20 mg 1 tab daily Potassium CL (Klor con) 10 mEq 1 tab daily documented in this encounterPar[facility]02-29-2024 Miscellaneous Notes* Telephone Encounter - Ivonne Luz - 11/25/2023 9:25 AM EST Patient called again for this refill. * Telephone Encounter - Ivonne Luz - 11/23/2023 11:48 AM EST Patient has been identified by name and date of : Yes, Provider Jimi Patient phones for refill(s): Requested Prescriptions Pending Prescriptions Disp Refills empagliflozin (JARDIANCE) 25 mg tablet 90 tablet 3 Sig: Take 1 tablet by mouth once daily. Take 1 tablet once daily in the morning Date of last office visit in primary care: 10/08/2023 Date of next office visit in primary care: 02/07/2024 Please advise. Thank you. Ivonne Taylor. documented in this encounterPar[facility]02-12-2024 History of Present illness Narrative* Nilda Kim PA-C - 11/08/2023 2:17 PM ESTAssociated Order(s): Large Joint Arthro/Inj: L knee joint Post-Procedure Diagnose(s): Primary osteoarthritis of left knee Large Joint Arthro/Inj: L knee joint Informed Consent Consent Obtained: Verbal [place] Protocol A moment to CARE was completed. SIGN IN Sign in communication not applicable due to emergent procedure. Personnel directly involved with the procedure wore the appropriate PPE. Special Equipment: N/A Patient/Surrogate Stated/Verified: Patient name, Date of , Relevant allergies and Intended procedure TIME OUT Intended patient and procedure match the source document(s). Relevant labs, photos, and/or imaging studies have been reviewed. Correct side/site marked and visible. Medications required for procedure verified. No fire risk assessment and interventions applicable. No implant(s) inserted. 11/08/2023 2:17 PM The procedure site was prepped in the usual sterile fashion. Site: L knee joint Medications: 6 mg betamethasone acetate-betamethasone sodium phosphate 6 mg/mL Anesthetics: 4 mL lidocaine (PF) 10 mg/mL (1 %) Outcome: Tolerated well, no immediate complications Post-injection instructions were reviewed with the patient and the patient voiced understanding of these instructions. SIGN OUT All instruments, equipment, possible retained foreign bodies accounted for. * Amira Simms RN - 11/08/2023 1:27 PM EST Patient presents with: Left Knee - Established Patient, Knee Pain, Injections AMB ROOMING INTAKE FLOWSHEET DATA Pain Pain Level: 4 Pain Location: Knee-Left Description: Dull Intervention/Comfort measure: Medication Pt with left knee pain. States pain since last injection is intermittent. Requesting injection today. [facility] Miscellaneous Notes* Telephone Encounter - Marino Weiss Ma - 08/27/2023 10:42 AM EST WALT: 04/02/2023 Last refill: 09/01/2022 QTY: 25 Refills: 0 * Telephone Encounter - Christie Hector - 08/26/2023 3:04 PM EST Patient has been identified by name and date of : Yes Requested Prescriptions Pending Prescriptions Disp Refills nitroglycerin sublingual (NITROQUICK) 0.4 mg SL tablet 25 tablet 0 Sig: Dissolve 1 tablet under the tongue as needed for chest pain. RX INSTRUCTIONS: Patient aware RX will be sent to pharmacy. No need to notify patient. Christie Taylor documented in [facility] Nurse Note* Destiny Fierro RN - 08/25/2023 9:26 AM EST Arrived in phase II via cart. Left lateral position. Sedated, but responds to verbal stimuli. Colornormal; skin warm and dry. Respirations wnl and unlabored. Abdomen soft and with + bowel sounds in quads X 4. Patient resting comfortably. Family at bedside. Destiny Fierro RN documented in this encounter[facility]11[facility]23 History and physical note * Madelin Blanc MD - 08/25/2023 8:45 AM EST UPDATED PROCEDURAL SEDATION HISTORY AND PHYSICAL EXAMINATION SERVICE DATE: 08/25/2023 SERVICE TIME: 8:26 PHYSICAL EXAM MUST BE COMPLETED ON ADMISSION PROCEDURE: colonoscopy, possible biopsies Procedure Indications: history of colon polyp, poor colon cleansing prep in last colonoscopy The History and Physical (completed in the past 30 days) has been reviewed and the patient has beenexamined. The contents accurately reflect the patient's condition with the following additions or revisions since the H&P was completed. ASA Class: ASA Class:: Patient with severe systemic disease Examination indicates no changes. AIRWAY: Airway Visualization of Uvula: Yes Mouth opening greater than 2 fingerbreadths: Yes Neck Full Range of Motion: Yes LUNGS: Lungs clear to auscultation CARDIAC: Regular rhythm,Regular rate Provisional Diagnosis/Treatment Plan: colonoscopy, possible biopsies SEDATION GOAL: Moderate This H&P can be found in the Electronic Medical Record . SIGNATURE: Madelin Blanc MD PATIENT NAME: Xavi Cabello DATE: August 25, 2023 TIME: 8:26 AM Source Note - Madelin Blanc MD - 08/25/2023 8:45 AM EST HISTORY AND PHYSICAL Xavi Cabello 1955 REFERRING PHYSICIAN: Madelin Blanc MD CHIEF COMPLAINT: Consult (Colonoscopy) HPI: The patient is a 68 year old male referred for endoscopy. Xavi notes history of colon polyp. He had a previous colonoscopy in 2021 which he was found to have a tubular adenoma but also inadequate clearance due to poor colon cleansing preparation. He denies noting blood in his stools; he denies abdominal pain, he denies changes in bowel habits. He recently had a cardiology evaluation in April 2023 and his disease was deemed stable. He notes no colon cancer in his family PAST MEDICAL HISTORY PAST MEDICAL HISTORY Diagnosis Date Alcohol abuse 03/05/2012 Arthritis Asthma CAD (coronary artery disease), squaxin coronary artery 03/05/2012 COPD (chronic obstructive pulmonary disease) ([facility]) COVID-19 04/24/2022 Hypertension Hypertrophy of prostate without urinary obstruction and other lower urinary tract symptoms (LUTS) 07/28/2007 Left knee pain Marijuana use Nocturnal hypoxia 10/06/2017 Obesity (BMI 30-39.9) Obstructive sleep apnea 10/06/2017 [facility] Other and unspecified hyperlipidemia Stented coronary artery 03/08/2012 Tubular adenoma of colon 08/03/2012 Type 2 diabetes mellitus with stage 3a chronic kidney disease, without long-term current use of insulin ([facility]) 09/26/2022 Type II or unspecified type diabetes mellitus without mention of complication, not stated as uncontrolled 09/05/2007 Unstable angina ([facility]) 07/28/2013 PAST SURGICAL HISTORY PAST SURGICAL HISTORY Procedure Laterality Date COLONOSCOPY 09/23/2022 poor bowel prep-repeat in 1 year COLONOSCOPY FLX DX W/COLLJ SPEC WHEN PFRMD 08/03/2012 Colonoscopy COLONOSCOPY FLX DX W/COLLJ SPEC WHEN PFRMD 12/16/2016 Colonoscopy mac EYE SURGERY HX HERNIA REPAIR HX LEFT HEART CATH,PERCUTANEOUS 07/31/2013 Cardiac cath, L heart LEFT HEART CATH,PERCUTANEOUS 07/23/2015 Cardiac cath, L heart PAST SURGICAL HISTORY OF 1968 circumcision PAST SURGICAL HISTORY OF Left 1968 eye surgery left eye only PAST SURGICAL HISTORY OF 03/24/2004 Umbilical hernia repair TONSILLECTOMY & ADENOIDECTOMY <AGE 10 1958 TONSILLECTOMY HX TRANSCATH STENT INIT VESSEL,PERCUT 03/07/2012 Transcath stent init vessel percut CURRENT MEDICATIONS Current Outpatient Medications Medication Sig Fenofibrate (LOFIBRA) 160 mg tablet Take 1 tablet by mouth once daily. sildenafil (VIAGRA) 50 mg tablet Take 1 tablet by mouth as needed. Take 1/2 hour before sexual activity, as directed for e.d. metoprolol tartrate, short acting, (LOPRESSOR) 25 mg tablet Take 1 tablet by mouth twice daily. albuterol HFA (PROVENTIL HFA, VENTOLIN HFA) 90 mcg/actuation inhaler Inhale 2 Puffs as instructed every 6 hours as needed for wheezing/shortness of breath. rosuvastatin (CRESTOR) 40 mg tablet Take 1 tablet by mouth daily at bedtime. For cholesterol. glipiZIDE (GLUCOTROL XL) 2.5 mg 24 hr tablet Take 1 tablet by mouth once daily. lisinopril (ZESTRIL) 10 mg tablet Take 1 tablet by mouth once daily. metFORMIN (GLUCOPHAGE) 500 mg tablet Take 2 tablets by mouth twice daily with meals. . tamsulosin (FLOMAX) 0.4 mg Take 1 capsule by mouth once daily. empagliflozin (JARDIANCE) 25 mg tablet Take 1 tablet by mouth once daily. Take 1 tablet once daily in the morning ranolazine SR (RANEXA) 1,000 mg tab ER 12 hr Take 1 tablet by mouth twice daily. Per CARDIOLOGY. nitroglycerin sublingual (NITROQUICK) 0.4 mg SL tablet Dissolve 1 tablet under the tongue as neededfor chest pain. CPAP Settings 5 - 15 cm H2O, suitable mask per pt preference, chin strap, head gear, humidity, tubing, lifetime supplies. G47.33 Obstructive Sleep Apnea aspirin, enteric coated (ECOTRIN LOW STRENGTH) 81 mg EC tablet Take 1 tablet by mouth once daily. gabapentin (NEURONTIN) 100 mg capsule Take 1 capsule by mouth twice daily for 180 days. No current facility-administered medications for this visit. ALLERGIES: Patient has no known allergies. PERSONAL HISTORY: SOCIAL HISTORY Social History Tobacco Use Smoking status: Never Smokeless tobacco: Never Vaping Use Vaping Use: Never used Substance Use Topics Alcohol use: Not Currently Comment: sober over year Drug use: Not Currently Comment: sober over year FAMILY HISTORY FAMILY HISTORY Problem Relation Age of Onset Heart Father of [place] approximately age 40s COPD Mother Diabetes Mother Hypertension Mother Arthritis Brother Diabetes Sister The review of systems data was entered by the nurse and reviewed by pr Nursing Notes: Scarlet Geller LPN 08/04/2023 3:42 PM Signed REVIEW OF SYSTEMS: General: The patient NOTES fatigue, denies weight loss, denies weight gain, denies feeling hot, anddenies feelings of cold. Eyes: The patient denies glaucoma, NOTES eye injury/surgery, wears glasses or contacts. Ear/Nose/Throat: The patient denies allergies, denies hayfever, denies ear infections, and denies bloody noses. Cardiovascular: The patient denies chest pain, denies heart disease, NOTES high blood pressure, bare metal stent stable LVEF 85% March 2022, denies irregular heart beat, NOTES high cholesterol, deniespoor circulation, denies heart failure, other cardiac issues, NOTES claudication, denies cold feet,denies peripheral arterial stent. Respiratory: The patient denies tuberculosis, NOTES pneumonia, NOTES frequent cough, denies pulmonary embolism, NOTES shortness of breath, and denies coughing up blood, NOTES copd Gastrointestinal: The patient denies difficulty swallowing, denies acid reflux, denies ulcers, denies vomiting, denies jaundice/hepatitis, denies gallbladder problems, denies black or tarry stools, NOTES hemorrhoids, denies bleeding from rectum, denies diverticulitis, denies constipation, denies diarrhea, denies loss of stool control, and NOTES hernias. Kidney/Bladder: The patient denies kidney stones, denies urine infections, and denies bloody urine. Skin: The patient denies a history of skin cancer, denies bleeding/changing moles, and denies a history of skin rash. Neurologic: The patient denies a history of epilepsy/convulsions, denies headaches, denies head/spinal injuries, and denies stroke/TIA. Psychiatric: The patient denies psychiatric medications, denies depression, and denies voices, denies substance abuse. Endocrine: The patient denies thyroid disorders, NOTES diabetes, and denies hormonal problems. Hematologic: The patient denies a history of bruising, denies bleeding, and denies anemia, denies blood clots. Infections: The patient NOTES a history of measles and mumps, denies rheumatic fever, and denies sexually transmitted diseases. Musculoskeletal: The patient denies back pain/injury, denies back problems, NOTES sciatica, denies knee/foot trouble, denies arthritis, or denies gout. When was patient's last Mammogram screening? N/A Last Colonoscopy: 2021 Scarlet Geller LPN PHYSICAL EXAMINATION: General: The patient is 68 year old male, well nourished, well hydrated in no acute distress. The patient is oriented to time, place, and person. VITALS: Blood pressure 126/82, pulse 77, temperature 37 C (98.6 F), height 170.2 cm (5' 7), fzhepj992.6 kg (221 lb 12.8 oz), SpO2 96 %. Body mass index is 34.74 kg/m . Head: Normal cephalic, atraumatic Eyes: pupils are equally round, sclera are clear/anicteric, wearing glasses Neck is supple with no tracheal deviation Cardiac: regular Respiratory: Normal respiratory excursion and pattern. Abdominal exam: benign Extremities: no clubbing, cyanosis or edema. Neuro: non focal Psych: normal mood IMPRESSION: history of colon polyps, inadequate colon cleaning preparation in last colonoscopy 2021 PLAN: I have discussed the above with the patient. I have offered colonoscopy , possible biopsies I have explained the procedure to the patient. I have counseled the patient as to the risks of the procedure, including but not limited to: infection, bleeding, injury to any intrabdominal organs such as liver/spleen, perforation of the GI tract,inability to complete the procedure, complications of anesthesia, etc. - the patient understands. The patient wishes to proceed. I have answered all questions to the patient s satisfaction and the patient has no further questions. Diagnoses: (Z86.010) History of colonic polyps (primary encounter diagnosis) Madelin Blanc MD * Madelin Blanc MD - 08/25/2023 8:45 AM EST HISTORY AND PHYSICAL Xavi Oleary Kemarinomonster 1955 REFERRING PHYSICIAN: Madelin Blanc MD CHIEF COMPLAINT: Consult (Colonoscopy) HPI: The patient is a 68 year old male referred for endoscopy. Xavi notes history of colon polyp. He had a previous colonoscopy in 2021 which he was found to have a tubular adenoma but also inadequate clearance due to poor colon cleansing preparation. He denies noting blood in his stools; he denies abdominal pain, he denies changes in bowel habits. He recently had a cardiology evaluation in April 2023 and his disease was deemed stable. He notes no colon cancer in his family PAST MEDICAL HISTORY PAST MEDICAL HISTORY Diagnosis Date Alcohol abuse 03/05/2012 Arthritis Asthma CAD (coronary artery disease), squaxin coronary artery 03/05/2012 COPD (chronic obstructive pulmonary disease) ([facility]) COVID-19 04/24/2022 Hypertension Hypertrophy of prostate without urinary obstruction and other lower urinary tract symptoms (LUTS) 07/28/2007 Left knee pain Marijuana use Nocturnal hypoxia 10/06/2017 Obesity (BMI 30-39.9) Obstructive sleep apnea 10/06/2017 [facility] Other and unspecified hyperlipidemia Stented coronary artery 03/08/2012 Tubular adenoma of colon 08/03/2012 Type 2 diabetes mellitus with stage 3a chronic kidney disease, without long-term current use of insulin ([facility]) 09/26/2022 Type II or unspecified type diabetes mellitus without mention of complication, not stated as uncontrolled 09/05/2007 Unstable angina ([facility]) 07/28/2013 PAST SURGICAL HISTORY PAST SURGICAL HISTORY Procedure Laterality Date COLONOSCOPY 09/23/2022 poor bowel prep-repeat in 1 year COLONOSCOPY FLX DX W/COLLJ SPEC WHEN PFRMD 08/03/2012 Colonoscopy COLONOSCOPY FLX DX W/COLLJ SPEC WHEN PFRMD 12/16/2016 Colonoscopy mac EYE SURGERY HX HERNIA REPAIR HX LEFT HEART CATH,PERCUTANEOUS 07/31/2013 Cardiac cath, L heart LEFT HEART CATH,PERCUTANEOUS 07/23/2015 Cardiac cath, L heart PAST SURGICAL HISTORY OF 1968 circumcision PAST SURGICAL HISTORY OF Left 1968 eye surgery left eye only PAST SURGICAL HISTORY OF 03/24/2004 Umbilical hernia repair TONSILLECTOMY & ADENOIDECTOMY <AGE 10 1958 TONSILLECTOMY HX TRANSCATH STENT INIT VESSEL,PERCUT 03/07/2012 Transcath stent init vessel percut CURRENT MEDICATIONS Current Outpatient Medications Medication Sig Fenofibrate (LOFIBRA) 160 mg tablet Take 1 tablet by mouth once daily. sildenafil (VIAGRA) 50 mg tablet Take 1 tablet by mouth as needed. Take 1/2 hour before sexual activity, as directed for e.d. metoprolol tartrate, short acting, (LOPRESSOR) 25 mg tablet Take 1 tablet by mouth twice daily. albuterol HFA (PROVENTIL HFA, VENTOLIN HFA) 90 mcg/actuation inhaler Inhale 2 Puffs as instructed every 6 hours as needed for wheezing/shortness of breath. rosuvastatin (CRESTOR) 40 mg tablet Take 1 tablet by mouth daily at bedtime. For cholesterol. glipiZIDE (GLUCOTROL XL) 2.5 mg 24 hr tablet Take 1 tablet by mouth once daily. lisinopril (ZESTRIL) 10 mg tablet Take 1 tablet by mouth once daily. metFORMIN (GLUCOPHAGE) 500 mg tablet Take 2 tablets by mouth twice daily with meals. . tamsulosin (FLOMAX) 0.4 mg Take 1 capsule by mouth once daily. empagliflozin (JARDIANCE) 25 mg tablet Take 1 tablet by mouth once daily. Take 1 tablet once daily in the morning ranolazine SR (RANEXA) 1,000 mg tab ER 12 hr Take 1 tablet by mouth twice daily. Per CARDIOLOGY. nitroglycerin sublingual (NITROQUICK) 0.4 mg SL tablet Dissolve 1 tablet under the tongue as neededfor chest pain. CPAP Settings 5 - 15 cm H2O, suitable mask per pt preference, chin strap, head gear, humidity, tubing, lifetime supplies. G47.33 Obstructive Sleep Apnea aspirin, enteric coated (ECOTRIN LOW STRENGTH) 81 mg EC tablet Take 1 tablet by mouth once daily. gabapentin (NEURONTIN) 100 mg capsule Take 1 capsule by mouth twice daily for 180 days. No current facility-administered medications for this visit. ALLERGIES: Patient has no known allergies. PERSONAL HISTORY: SOCIAL HISTORY Social History Tobacco Use Smoking status: Never Smokeless tobacco: Never Vaping Use Vaping Use: Never used Substance Use Topics Alcohol use: Not Currently Comment: sober over year Drug use: Not Currently Comment: sober over year FAMILY HISTORY FAMILY HISTORY Problem Relation Age of Onset Heart Father of [place] approximately age 40s COPD Mother Diabetes Mother Hypertension Mother Arthritis Brother Diabetes Sister The review of systems data was entered by the nurse and reviewed by pr Nursing Notes: Scarlet Geller LPN 08/04/2023 3:42 PM Signed REVIEW OF SYSTEMS: General: The patient NOTES fatigue, denies weight loss, denies weight gain, denies feeling hot, anddenies feelings of cold. Eyes: The patient denies glaucoma, NOTES eye injury/surgery, wears glasses or contacts. Ear/Nose/Throat: The patient denies allergies, denies hayfever, denies ear infections, and denies bloody noses. Cardiovascular: The patient denies chest pain, denies heart disease, NOTES high blood pressure, bare metal stent stable LVEF 85% March 2022, denies irregular heart beat, NOTES high cholesterol, deniespoor circulation, denies heart failure, other cardiac issues, NOTES claudication, denies cold feet,denies peripheral arterial stent. Respiratory: The patient denies tuberculosis, NOTES pneumonia, NOTES frequent cough, denies pulmonary embolism, NOTES shortness of breath, and denies coughing up blood, NOTES copd Gastrointestinal: The patient denies difficulty swallowing, denies acid reflux, denies ulcers, denies vomiting, denies jaundice/hepatitis, denies gallbladder problems, denies black or tarry stools, NOTES hemorrhoids, denies bleeding from rectum, denies diverticulitis, denies constipation, denies diarrhea, denies loss of stool control, and NOTES hernias. Kidney/Bladder: The patient denies kidney stones, denies urine infections, and denies bloody urine. Skin: The patient denies a history of skin cancer, denies bleeding/changing moles, and denies a history of skin rash. Neurologic: The patient denies a history of epilepsy/convulsions, denies headaches, denies head/spinal injuries, and denies stroke/TIA. Psychiatric: The patient denies psychiatric medications, denies depression, and denies voices, denies substance abuse. Endocrine: The patient denies thyroid disorders, NOTES diabetes, and denies hormonal problems. Hematologic: The patient denies a history of bruising, denies bleeding, and denies anemia, denies blood clots. Infections: The patient NOTES a history of measles and mumps, denies rheumatic fever, and denies sexually transmitted diseases. Musculoskeletal: The patient denies back pain/injury, denies back problems, NOTES sciatica, denies knee/foot trouble, denies arthritis, or denies gout. When was patient's last Mammogram screening? N/A Last Colonoscopy: 2021 Scarlet Geller LPN PHYSICAL EXAMINATION: General: The patient is 68 year old male, well nourished, well hydrated in no acute distress. The patient is oriented to time, place, and person. VITALS: Blood pressure 126/82, pulse 77, temperature 37 C (98.6 F), height 170.2 cm (5' 7), .6 kg (221 lb 12.8 oz), SpO2 96 %. Body mass index is 34.74 kg/m . Head: Normal cephalic, atraumatic Eyes: pupils are equally round, sclera are clear/anicteric, wearing glasses Neck is supple with no tracheal deviation Cardiac: regular Respiratory: Normal respiratory excursion and pattern. Abdominal exam: benign Extremities: no clubbing, cyanosis or edema. Neuro: non focal Psych: normal mood IMPRESSION: history of colon polyps, inadequate colon cleaning preparation in last colonoscopy 2021 PLAN: I have discussed the above with the patient. I have offered colonoscopy , possible biopsies I have explained the procedure to the patient. I have counseled the patient as to the risks of the procedure, including but not limited to: infection, bleeding, injury to any intrabdominal organs such as liver/spleen, perforation of the GI tract,inability to complete the procedure, complications of anesthesia, etc. - the patient understands. The patient wishes to proceed. I have answered all questions to the patient s satisfaction and the patient has no further questions. Diagnoses: (Z86.010) History of colonic polyps (primary encounter diagnosis) Madelin Blanc MD [facility] Telephone encounter Note * Telephone Encounter - Yadira Neal - 08/12/2023 10:57 AM EST Patient notified [facility] Telephone encounter Note* Telephone Encounter - Yadira Neal - 08/12/2023 10:57 AM EST Images from the original note were not included. Madelin Blanc MD You 9 minutes ago (10:48 AM) He can take all his medications as he normally would. [facility] Miscellaneous Notes* Telephone Encounter - Yadira Neal - 08/12/2023 10:57 AM EST Patient notified * Telephone Encounter - Yadira Neal - 08/12/2023 10:57 AM EST Images from the original note were not included. Madelin Blanc MD You 9 minutes ago (10:48 AM) He can take all his medications as he normally would. * Telephone Encounter - Yadira Neal - 08/12/2023 8:35 AM EST Patient asking in regards to medication list and what can and cannot be taken prior to procedure on08/25/2023 in [facility] Please advise Yadira Neal [employer]inist Apprentice * Telephone Encounter - Yadira Neal - 08/04/2023 4:27 PM EST 08/25/[address] Blanc patient to be on 2 days clear liquids prior to procedure as well as to take 4 dulcolaxtablets the night before procedure Yadira Neal [employer] Machinist Apprentice documented [facility] Telephone encounter Note * Telephone Encounter - Yadira Neal - 08/12/2023 8:35 AM EST Patient asking in regards to medication list and what can and cannot be taken prior to procedure on08/25/2023 in [facility] Please advise Yadira Neal [employer] Machinist Apprentice [facility] Telephone encounter Note* Telephone Encounter - Yadira Neal - 08/04/2023 4:27 PM EST 08/25/[address] Blanc patient to be on 2 days clear liquids prior to procedure as well as to take 4 dulcolaxtablets the night before procedure Yadira Neal [employer] Machinist Apprentice [facility] Instructions* Patient Instructions* Madelin Blanc MD - 08/04/2023 3:57 PM EST Images from the original note were not included. Bowel Preparation Instructions for: Golytely, Nulytely, Trilyte or Colyte (polyethylene glycol 3350and electrolytes) IF YOU DO NOT FOLLOW THESE DIRECTIONS, YOUR COLONOSCOPY WILL BE CANCELLED. Grant Instructions: Your bowel must be empty so that your doctor can clearly view your colon. Follow all of the instructions in this handout EXACTLY as they are written. Do NOT eat any solid food the ENTIRE day before your colonoscopy. Drink only clear liquids. Buy your bowel preparation at least 5 days before your colonoscopy. TRANSPORTATION on the Day of Your Exam A responsible person MUST be present with you at Check In prior to your colonoscopy and REMAIN in the endoscopy area until you are discharged. You are NOT ALLOWED to drive, take a taxi or bus, or leave the Endoscopy Center ALONE. If you do not have a responsible pile driver operator (family member or friend) with you to take you home, your exam cannot be done with sedation and will be cancelled. Please bring a list of all of your current medications, including any Over-the Counter medications with you. Medications If you take insulin, diabetic medications or blood thinners such as Coumadin (warfarin), Plavix (clopidogrel), Ticlid (ticlopidine hydrochloride), Agrylin (anagrelide), Xarelto (Rivaroxaban), Pradaxa(Dabigatran), Eliquis (Apixaban), and Effient (Prasugrel). You MUST call the doctors who orders those medicines for instructions on altering the dosage before your colonoscopy. All other medications should be taken the day of the exam with a sip of water including ASPIRIN. Five (5) Days Before Your Colonoscopy Do NOT take medicines that stop diarrhea - such as Imodium, Kaopectate, or Pepto Bismol. Do NOT take fiber supplements - such as Metamucil, Citrucel, or Perdiem. Do NOT take products that contain iron - such as multi-vitamins (the label lists what is in the products). Do NOT take Vitamin E. Buy the prescription bowel preparation solution at your local pharmacy or drugstore pharmacy. 1 08/2019 Bowel Preparation Instructions for: Golytely, Nulytely, Trilyte or Colyte (polyethylene glycol 3350and electrolytes) Three (3) Days Before Your Colonoscopy Do NOT eat high-fiber foods - such as popcorn, beans, seeds (flax, sunflower, quinoa), multigrain bread, nuts, salad/vegetables, or fresh and dried fruit. One (1) Day Before Your Colonoscopy Only drink clear liquids the ENTIRE DAY before your colonoscopy. Do NOT eat any solid foods. Drink at least 8 ounces of clear liquids every hour after waking up. The clear liquids you can drink include: Clear Liquid (NO RED LIQUIDS) DO NOT DRINK Gatorade, Pedialyte or Powerade Clear broth or bouillon Coffee or tea (no milk or non-dairy creamer) Carbonated and non-carbonated soft drinks Murray-Aid or other fruit flavored drinks Strained fruit juices (no pulp) Jell-O, popsicles, hard candy Water Alcohol Milk or non-dairy creamers Noodles or vegetables in soup Juice with pulp Liquid you cannot see through Do not use tobacco/vaping products The bowel preparation solution will be consumed in two parts. Mix the solution the evening before your colonoscopy and refrigerate before drinking. You may add the flavor pack that came with the bowel preparation. Do NOT add ice, sugar or any other flavorings to the solution. Part 1 At 6:00 PM - Evening before your colonoscopy Drink an 8-oz glass of bowel preparation every 10 minutes for a total of 8 glasses. You may continue to drink clear liquids until midnight. Part 2 On the day of your colonoscopy you may drink clear liquids up to (three) 3 hours before your procedure. 4 1/2 hours before your colonoscopy Drink an 8-oz glass of bowel preparation every 10 minutes for a total of 8 glasses. Fifteen (15) minutes later, drink an 8-oz glass of clear liquids every 15 minutes for a total of 2 glasses. You may continue to drink clear liquids up to (three) 3 hours before your exam. 2 08/2019 documented in this encounterPar[facility] History of Present illness Narrative* Madelin Blanc MD - 08/04/2023 3:42 PM EST HISTORY AND PHYSICAL Xavi Cabello 1955 REFERRING PHYSICIAN: Madelin Blanc MD CHIEF COMPLAINT: Consult (Colonoscopy) HPI: The patient is a 68 year old male referred for endoscopy. Xavi notes history of colon polyp. He had a previous colonoscopy in 2021 which he was found to have a tubular adenoma but also inadequate clearance due to poor colon cleansing preparation. He denies noting blood in his stools; he denies abdominal pain, he denies changes in bowel habits. He recently had a cardiology evaluation in April 2023 and his disease was deemed stable. He notes no colon cancer in his family PAST MEDICAL HISTORY Diagnosis Date Alcohol abuse 03/05/2012 Arthritis Asthma CAD (coronary artery disease), squaxin coronary artery 03/05/2012 COPD (chronic obstructive pulmonary disease) ([facility]) COVID-19 04/24/2022 Hypertension Hypertrophy of prostate without urinary obstruction and other lower urinary tract symptoms (LUTS) 07/28/2007 Left knee pain Marijuana use Nocturnal hypoxia 10/06/2017 Obesity (BMI 30-39.9) Obstructive sleep apnea 10/06/2017 DME [facility] Other and unspecified hyperlipidemia Stented coronary artery 03/08/2012 Tubular adenoma of colon 08/03/2012 Type 2 diabetes mellitus with stage 3a chronic kidney disease, without long-term current use of insulin ([facility]) 09/26/2022 Type II or unspecified type diabetes mellitus without mention of complication, not stated as uncontrolled 09/05/2007 Unstable angina ([facility]) 07/28/2013 PAST SURGICAL HISTORY Procedure Laterality Date COLONOSCOPY 09/23/2022 poor bowel prep-repeat in 1 year COLONOSCOPY FLX DX W/COLLJ SPEC WHEN PFRMD 08/03/2012 Colonoscopy COLONOSCOPY FLX DX W/COLLJ SPEC WHEN PFRMD 12/16/2016 Colonoscopy mac EYE SURGERY HX HERNIA REPAIR HX LEFT HEART CATH,PERCUTANEOUS 07/31/2013 Cardiac cath, L heart LEFT HEART CATH,PERCUTANEOUS 07/23/2015 Cardiac cath, L heart PAST SURGICAL HISTORY OF 1968 circumcision PAST SURGICAL HISTORY OF Left 1968 eye surgery left eye only PAST SURGICAL HISTORY OF 03/24/2004 Umbilical hernia repair TONSILLECTOMY & ADENOIDECTOMY <AGE 10 1958 TONSILLECTOMY HX TRANSCATH STENT INIT VESSEL,PERCUT 03/07/2012 Transcath stent init vessel percut Current Outpatient Medications Medication Sig Fenofibrate (LOFIBRA) 160 mg tablet Take 1 tablet by mouth once daily. sildenafil (VIAGRA) 50 mg tablet Take 1 tablet by mouth as needed. Take 1/2 hour before sexual activity, as directed for e.d. metoprolol tartrate, short acting, (LOPRESSOR) 25 mg tablet Take 1 tablet by mouth twice daily. albuterol HFA (PROVENTIL HFA, VENTOLIN HFA) 90 mcg/actuation inhaler Inhale 2 Puffs as instructed every 6 hours as needed for wheezing/shortness of breath. rosuvastatin (CRESTOR) 40 mg tablet Take 1 tablet by mouth daily at bedtime. For cholesterol. glipiZIDE (GLUCOTROL XL) 2.5 mg 24 hr tablet Take 1 tablet by mouth once daily. lisinopril (ZESTRIL) 10 mg tablet Take 1 tablet by mouth once daily. metFORMIN (GLUCOPHAGE) 500 mg tablet Take 2 tablets by mouth twice daily with meals. . tamsulosin (FLOMAX) 0.4 mg Take 1 capsule by mouth once daily. empagliflozin (JARDIANCE) 25 mg tablet Take 1 tablet by mouth once daily. Take 1 tablet once daily in the morning ranolazine SR (RANEXA) 1,000 mg tab ER 12 hr Take 1 tablet by mouth twice daily. Per CARDIOLOGY. nitroglycerin sublingual (NITROQUICK) 0.4 mg SL tablet Dissolve 1 tablet under the tongue as neededfor chest pain. CPAP Settings 5 - 15 cm H2O, suitable mask per pt preference, chin strap, head gear, humidity, tubing, lifetime supplies. G47.33 Obstructive Sleep Apnea aspirin, enteric coated (ECOTRIN LOW STRENGTH) 81 mg EC tablet Take 1 tablet by mouth once daily. gabapentin (NEURONTIN) 100 mg capsule Take 1 capsule by mouth twice daily for 180 days. No current facility-administered medications for this visit. ALLERGIES: Patient has no known allergies. PERSONAL HISTORY: Social History Tobacco Use Smoking status: Never Smokeless tobacco: Never Vaping Use Vaping Use: Never used Substance Use Topics Alcohol use: Not Currently Comment: sober over year Drug use: Not Currently Comment: sober over year FAMILY HISTORY Problem Relation Age of Onset Heart Father of [place] approximately age 40s COPD Mother Diabetes Mother Hypertension Mother Arthritis Brother Diabetes Sister The review of systems data was entered by the nurse and reviewed by pr Nursing Notes: Scarlet Geller LPN 08/04/2023 3:42 PM Signed REVIEW OF SYSTEMS: General: The patient NOTES fatigue, denies weight loss, denies weight gain, denies feeling hot, anddenies feelings of cold. Eyes: The patient denies glaucoma, NOTES eye injury/surgery, wears glasses or contacts. Ear/Nose/Throat: The patient denies allergies, denies hayfever, denies ear infections, and denies bloody noses. Cardiovascular: The patient denies chest pain, denies heart disease, NOTES high blood pressure, bare metal stent stable LVEF 85% March 2022, denies irregular heart beat, NOTES high cholesterol, deniespoor circulation, denies heart failure, other cardiac issues, NOTES claudication, denies cold feet,denies peripheral arterial stent. Respiratory: The patient denies tuberculosis, NOTES pneumonia, NOTES frequent cough, denies pulmonary embolism, NOTES shortness of breath, and denies coughing up blood, NOTES copd Gastrointestinal: The patient denies difficulty swallowing, denies acid reflux, denies ulcers, denies vomiting, denies jaundice/hepatitis, denies gallbladder problems, denies black or tarry stools, NOTES hemorrhoids, denies bleeding from rectum, denies diverticulitis, denies constipation, denies diarrhea, denies loss of stool control, and NOTES hernias. Kidney/Bladder: The patient denies kidney stones, denies urine infections, and denies bloody urine. Skin: The patient denies a history of skin cancer, denies bleeding/changing moles, and denies a history of skin rash. Neurologic: The patient denies a history of epilepsy/convulsions, denies headaches, denies head/spinal injuries, and denies stroke/TIA. Psychiatric: The patient denies psychiatric medications, denies depression, and denies voices, denies substance abuse. Endocrine: The patient denies thyroid disorders, NOTES diabetes, and denies hormonal problems. Hematologic: The patient denies a history of bruising, denies bleeding, and denies anemia, denies blood clots. Infections: The patient NOTES a history of measles and mumps, denies rheumatic fever, and denies sexually transmitted diseases. Musculoskeletal: The patient denies back pain/injury, denies back problems, NOTES sciatica, denies knee/foot trouble, denies arthritis, or denies gout. When was patient's last Mammogram screening? N/A Last Colonoscopy: 2021 Scarlet Geller LPN PHYSICAL EXAMINATION: General: The patient is 68 year old male, well nourished, well hydrated in no acute distress. The patient is oriented to time, place, and person. VITALS: Blood pressure 126/82, pulse 77, temperature 37 C (98.6 F), height 170.2 cm (5' 7), cgewlo411.6 kg (221 lb 12.8 oz), SpO2 96 %. Body mass index is 34.74 kg/m . Head: Normal cephalic, atraumatic Eyes: pupils are equally round, sclera are clear/anicteric, wearing glasses Neck is supple with no tracheal deviation Cardiac: regular Respiratory: Normal respiratory excursion and pattern. Abdominal exam: benign Extremities: no clubbing, cyanosis or edema. Neuro: non focal Psych: normal mood Assessment IMPRESSION: history of colon polyps, inadequate colon cleaning preparation in last colonoscopy 2021 PLAN: I have discussed the above with the patient. I have offered colonoscopy , possible biopsies I have explained the procedure to the patient. I have counseled the patient as to the risks of the procedure, including but not limited to: infection, bleeding, injury to any intrabdominal organs such as liver/spleen, perforation of the GI tract,inability to complete the procedure, complications of anesthesia, etc. - the patient understands. The patient wishes to proceed. I have answered all questions to the patient s satisfaction and the patient has no further questions. My clinic staff has educated the patient as to the colon cleansing regimen and I have prescribed Golytely for the colon cleansing solution. I have recommended two days of clear liquids with the firstday to have 4 dulcolax. The patient will be scheduled for the procedure at [facility]. Diagnoses: (Z86.010) History of colonic polyps (primary encounter diagnosis) I have confirmed and edited as necessary, the PFSH and ROS obtained by others. I spent a total of 26 minutes on the date of the service which included preparing to see the patient with review of any pertinent laboratory studies/radiological imaging/medical records, kfuw-[id number] care, obtaining oral medical history from the patient in this encounter, counseling and educating the patient/family/caregiver, and ordering and/or scheduling of medications/tests/procedures,and completing appropriate medical documentation. Madelin Blanc MD documented in this encounterPar[facility]11-08-[facility]23 Nurse Note* Scarlet Geller LPN - 08/04/2023 3:38 PM EST REVIEW OF SYSTEMS: General: The patient NOTES fatigue, denies weight loss, denies weight gain, denies feeling hot, anddenies feelings of cold. Eyes: The patient denies glaucoma, NOTES eye injury/surgery, wears glasses or contacts. Ear/Nose/Throat: The patient denies allergies, denies hayfever, denies ear infections, and denies bloody noses. Cardiovascular: The patient denies chest pain, denies heart disease, NOTES high blood pressure,NOTES cardiac stent, denies prior heart attack, denies irregular heart beat, NOTES high cholesterol, denies poor circulation, denies heart failure, other cardiac issues, NOTES claudication, denies cold feet, denies peripheral arterial stent. Respiratory: The patient denies tuberculosis, NOTES pneumonia, NOTES frequent cough, denies pulmonary embolism, NOTES shortness of breath, and denies coughing up blood, NOTES copd Gastrointestinal: The patient denies difficulty swallowing, denies acid reflux, denies ulcers, denies vomiting, denies jaundice/hepatitis, denies gallbladder problems, denies black or tarry stools, NOTES hemorrhoids, denies bleeding from rectum, denies diverticulitis, denies constipation, denies diarrhea, denies loss of stool control, and NOTES hernias. Kidney/Bladder: The patient denies kidney stones, denies urine infections, and denies bloody urine. Skin: The patient denies a history of skin cancer, denies bleeding/changing moles, and denies a history of skin rash. Neurologic: The patient denies a history of epilepsy/convulsions, denies headaches, denies head/spinal injuries, and denies stroke/TIA. Psychiatric: The patient denies psychiatric medications, denies depression, and denies voices, denies substance abuse. Endocrine: The patient denies thyroid disorders, NOTES diabetes, and denies hormonal problems. Hematologic: The patient denies a history of bruising, denies bleeding, and denies anemia, denies blood clots. Infections: The patient NOTES a history of measles and mumps, denies rheumatic fever, and denies sexually transmitted diseases. Musculoskeletal: The patient denies back pain/injury, denies back problems, NOTES sciatica, denies knee/foot trouble, denies arthritis, or denies gout. When was patient's last Mammogram screening? N/A Last Colonoscopy: 2021 Scarlet Geller LPN documented in this encounterPar[facility]10-30-2023 Miscellaneous Notes* Telephone Encounter - Marino Weiss Ma - 07/26/2023 3:19 PM EDT WALT: 04/02/2023 Last refill: 06/29/2022 QTY: 90 Refills: 3 * Telephone Encounter - Karishma Dukes - 07/26/2023 11:17 AM EDT Patient has been identified by name and date of : Yes Requested Prescriptions Pending Prescriptions Disp Refills Fenofibrate (LOFIBRA) 160 mg tablet 90 tablet 3 Sig: Take 1 tablet by mouth once daily. RX INSTRUCTIONS: Patient aware RX will be sent to pharmacy. No need to notify patient. Karishma Taylor documented in this encounterParma [facility]10-30-2023 Instructions* Patient Instructions* Margarito Joseph - 07/26/2023 2:08 PM EDT Diabetes Foot Care Instructions When you have diabetes, proper foot care is very important. Poor foot care may lead to amputation of a foot or leg. As a person with diabetes, you are more vulnerable to foot problems, because diabetes can damage your nerves and reduce blood flow to your feet. Here are some diabetes foot care tips to follow: Wash and Dry Your Feet Daily Use mild soaps Use warm water Pat your skin dry; do not rub. Thoroughly dry your feet. After washing, use lotion on your feet to prevent cracking. Do not put lotion between your toes. Examine Your Feet Each Day Check the tops and bottoms of your feet. Have someone else look at your feet if you cannot see them. Check for dry, cracked skin. Look for blisters, cuts, scratches, or other sores. Check for redness, increased warmth, or tenderness when touching any area of your feet. Check for ingrown toenails, corns, and calluses. If you get a blister or sore from your shoes, do not pop it. Apply a bandage and wear a differentpair of shoes. Take Care of Your Toenails Cut toenails after bathing, when they are soft. Cut toenails straight across and smooth with a nail file. Avoid cutting into the corners of toes. Do not cut cuticles. If you have neuropathy (or decreased sensation in your feet) a director data processing should always cut your toenails. Be Careful When Exercising Walk and exercise in comfortable shoes. Do not exercise when you have open sores on your feet. Protect Your Feet With Shoes and Socks Never go barefoot. Always protect your feet by wearing shoes or hard-soled slippers or footwear. Avoid shoes with high heels and pointed toes. Avoid shoes that expose your toes or heels (such as open-toed shoes or sandals). These types of shoes increase your risk for injury and potential infections. Try on new footwear with the type of socks you usually wear. Do not wear new shoes for more than an hour at a time. Change your socks daily. Look and feel inside your shoes before putting them on to make sure there are no foreign objects orrough areas. Avoid tight socks. Wear natural-fiber socks (cotton, wool, or a cotton-wool blend). Wear special shoes if your health care provider recommends them. Wear shoes/boots that will protect your feet from various weather conditions (cold, moisture, etc.). Make sure your shoes fit properly. If you have neuropathy (nerve damage), you may not notice that your shoes are too tight. Perform the footwear test described below. Footwear Test Use this simple test to see if your shoes fit correctly: Stand on a piece of paper. (Make sure you are standing and not sitting, because your foot changes shape when you stand.) Trace the outline of your foot. Trace the outline of your shoe. Compare the tracings: Is the shoe too narrow? Is your foot crammed into the shoe? The shoe should be at least 1/2 inch longer than your longest toe and as wide as your foot. Proper Shoe Choices The following types of shoes are best for people with diabetes Closed toes and heels Leather uppers without a seam inside At least 1/2 inch extra space at the end of your longest toe Inside of shoe should be soft with no rough areas Outer sole should be made of stiff material Shoes should be at least as wide as your feet Tips for Foot Care in Diabetes Don't wait to treat a minor foot problem if you have diabetes. Follow your health care provider's guidelines and first aid guidelines. Report foot injuries and infections to your health care provider immediately. Check water temperature with your elbow, not your foot. Do not use a heating pad on your feet. Do not cross your legs. Do not self-treat your corns, calluses, or other foot problems. Go to your health care provider or director data processing to treat these conditions. documented in this encounterPar[facility]10-30-2023 History of Present illness Narrative* Margarito Joseph - 07/26/2023 2:00 PM EDT Last saw pcp: 04/12/23 Subjective: Patient presents to clinic c/o painful toenails. They state that the nails are especially painful with shoe gear and pressure. Patient admits to being diabetic . Patient has order for diabetic shoes but has yet to get. No other pedal complaints at this time. Patient states no change in medications or medical history since last visit. Objective: Patient presents to clinic ambulating in high top sneakers Vasc: DP and PT pulses are nonpalpable bilateral. CFT is less than 5 seconds bilateral. Skin temperature is warm to cool proximal to distal bilateral. There is moderate edema or varicosities noted. Neuro: Protective sensation is intact to the foot and toes when tested with the 5.07 SWM bilateral.Vibratory sensation is decreased at the hallux IPJ bilateral. The hallux is downgoing bilateral. Derm: Nails 1-5 b/l are painful, discolored-yellow, thick, crumbly, dystrophic and with subungal debris. Skin is of normal turgor, texture and hair growth is absent bilateral. There are no hyperkeratosis, ulcerations, scars, verruca or other lesions noted. Ortho: Muscle strength is 5/5 for all pedal groups tested. Ankle joint DF is decreased with the knee extended with no pain or crepitus noted. 1st MPJ ROM is decreased bilateral. Bunion is present b/l Assessment: (B35.1) Onychomycosis (primary encounter diagnosis) (M79.675) Pain in toe of left foot (M79.674) Pain in toe of right foot (E08.42) Diabetic polyneuropathy associated with diabetes mellitus due to underlying condition (HCC) (M20.10) Acquired hallux valgus, unspecified laterality (M20.12) Hallux valgus of left foot Plan: Patient was seen and evaluated. Nails 1-5 bilateral were debrided in length and thickness. Patient was instructed on the continued importance of diabetic foot care along with proper diet andkeeping their blood sugar under control to prevent complications. Discussed findings of neuropathy.Recommend avoiding barefoot walking, wearing good protective shoes and daily foot inspection Due to bunion in a patient with neuropathy, will order diabetic shoes. Could consider bunion correction if having pain but would need to check vascular studies first. Patient is to RTC in 3-4 months. Margarito Joseph DPM * Lupis Ramirez LPN - 07/26/2023 1:55 PM EDT AMB ROOMING INTAKE FLOWSHEET DATA Patient presents with: Left Foot - Established Patient, Diabetic Foot Care Right Foot - Established Patient, Diabetic Foot Care Lupis Ramirez LPN documented in this encounterPar[facility]10-13-2023 Miscellaneous Notes* Telephone Encounter - Malia Arndt LPN - 07/09/2023 1:48 PM EDT Patient returned call and went over notes from Liat Emery SENIOR ORACLE DATABASE DEVELOPER and [facility]. * Telephone Encounter - Gerda Hsieh LPN - 07/09/2023 10:24 AM EDT 1st attempt to reach pt by phone was unsuccessful. Try pt later. Gerda Hsieh LPN * Telephone Encounter - Liat Emery APRN.CNP - 07/09/2023 6:38 AM EDT This is prescribed by [facility] Liat Emery APRN.BOB * Telephone Encounter - Johanny Palomo LPN - 07/08/2023 4:38 PM EDT Patient has been identified by name and date of : Yes Patient phones for refill(s): Requested Prescriptions Pending Prescriptions Disp Refills ranolazine SR (RANEXA) 1,000 mg tab ER 12 hr Sig: Take 1 tablet by mouth two times a day. Per CARDIOLOGY. Date of last office visit in primary care: Visit date not found Date of next office visit in primary care: Visit date not found Last 2 Encounter Wt Readings: Date: Wt: 04/02/2023 98.9 kg (218 lb) 12/16/2022 98 kg (216 lb) Previous labs/tests for medication: Blood Pressure: BUN (mg/dL) Date Value 04/02/2023 14 11/20/2020 14 Sodium (mmol/L) Date Value 04/02/2023 136 11/20/2020 142 Last 1 Encounter BP Readings: Date: BP: 04/02/2023 114/72 Please advise. Thank you. Johanny Palomo LPN. * Telephone Encounter - Layne Prajapati - 07/08/2023 10:39 AM EDT Patient has been identified by name and date of : Yes Last office visit in this department: Visit date not found RX INSTRUCTIONS: Patient aware RX will be sent to pharmacy. No need to notify patient. Patient phones requesting refills as follows: Requested Prescriptions Pending Prescriptions Disp Refills ranolazine SR (RANEXA) 1,000 mg tab ER 12 hr Sig: Take 1 tablet by mouth two times a day. Per CARDIOLOGY. Please review and advise. Layne Prajapati documented in this encounterPar[facility]09-01-2023 Miscellaneous Notes* Telephone Encounter - Hillary Flores LPN - 05/28/2023 2:53 PM EDT Last seen 04/02/23. Next appt is 10/04/23 * Telephone Encounter - Karishma Dukes - 05/28/2023 2:46 PM EDT Patient has been identified by name and date of : Yes Requested Prescriptions Pending Prescriptions Disp Refills metoprolol tartrate, short acting, (LOPRESSOR) 25 mg tablet 180 tablet 3 Sig: Take 1 tablet by mouth twice daily. RX INSTRUCTIONS: Patient aware RX will be sent to pharmacy. No need to notify patient. Karishma Taylor documented in this encounterParma [facility]08-14-2023 Miscellaneous Notes* Telephone Encounter - Marino Weiss Ma - 05/10/2023 1:06 PM EDT WALT: 04/02/2023 Last refill: 04/01/2022 QTY: 18 g Refills: 5 * Telephone Encounter - Clementina Wade - 05/10/2023 9:19 AM EDT [facility] Patient has been identified by name and date of : Yes Patient aware RX will be sent to pharmacy. No need to notify patient. Patient phones for refill(s): Requested Prescriptions Pending Prescriptions Disp Refills albuterol HFA (PROVENTIL HFA, VENTOLIN HFA) 90 mcg/actuation inhaler 18 g 5 Sig: Inhale 2 Puffs as instructed every 6 hours as needed for wheezing/shortness of breath. Date of last office visit : 04/02/2023 Date of next office visit : 10/04/2023 Last 2 Encounter Wt Readings: Date: Wt: 04/02/2023 98.9 kg (218 lb) 12/16/2022 98 kg (216 lb) Not applicable Please advise. Clementina Hopkins Pss documented in this encounterParma [facility]07-31-2023 History of Present illness Narrative* Nilda Kim PA-C - 04/26/2023 2:56 PM EDTAssociated Order(s): Large Joint Arthro/Inj: L knee joint Post-Procedure Diagnose(s): Primary osteoarthritis of left knee Large Joint Arthro/Inj: L knee joint Informed Consent Consent Obtained: Verbal [place] Protocol A moment to CARE was completed. SIGN IN Sign in communication not applicable due to emergent procedure. Personnel directly involved with the procedure wore the appropriate PPE. Special Equipment: N/A Patient/Surrogate Stated/Verified: Patient name, Date of , Relevant allergies and Intended procedure TIME OUT Intended patient and procedure match the source document(s). Relevant labs, photos, and/or imaging studies have been reviewed. Correct side/site marked and visible. Medications required for procedure verified. No fire risk assessment and interventions applicable. No implant(s) inserted. 04/26/2023 2:56 PM The procedure site was prepped in the usual sterile fashion. Site: L knee joint Medications: 6 mg betamethasone acetate-betamethasone sodium phosphate 6 mg/mL Anesthetics: 4 mL lidocaine (PF) 10 mg/mL (1 %) Outcome: Tolerated well, no immediate complications Post-injection instructions were reviewed with the patient and the patient voiced understanding of these instructions. SIGN OUT All instruments, equipment, possible retained foreign bodies accounted for. * Clementina Rudolph - 04/26/2023 2:15 PM EDT Patient presents with: Left Knee - Established Patient, Injections: 91 days post injection Patient reports achy pain that increases with weight bearing. He reports prior injections last about 80 days. Xrays were completed today. AMB ROOMING INTAKE FLOWSHEET DATA Pain Pain Level: 5 Pain Location: Knee-Left Description: Aching Duration Amount of Time: 2 Duration Units: Years Frequency: Intermittent [facility] Instructions* Patient Instructions* Margarito Joseph - 04/22/2023 2:06 PM EDT Diabetes Foot Care Instructions When you have diabetes, proper foot care is very important. Poor foot care may lead to amputation of a foot or leg. As a person with diabetes, you are more vulnerable to foot problems, because diabetes can damage your nerves and reduce blood flow to your feet. Here are some diabetes foot care tips to follow: Wash and Dry Your Feet Daily Use mild soaps Use warm water Pat your skin dry; do not rub. Thoroughly dry your feet. After washing, use lotion on your feet to prevent cracking. Do not put lotion between your toes. Examine Your Feet Each Day Check the tops and bottoms of your feet. Have someone else look at your feet if you cannot see them. Check for dry, cracked skin. Look for blisters, cuts, scratches, or other sores. Check for redness, increased warmth, or tenderness when touching any area of your feet. Check for ingrown toenails, corns, and calluses. If you get a blister or sore from your shoes, do not pop it. Apply a bandage and wear a differentpair of shoes. Take Care of Your Toenails Cut toenails after bathing, when they are soft. Cut toenails straight across and smooth with a nail file. Avoid cutting into the corners of toes. Do not cut cuticles. If you have neuropathy (or decreased sensation in your feet) a director data processing should always cut your toenails. Be Careful When Exercising Walk and exercise in comfortable shoes. Do not exercise when you have open sores on your feet. Protect Your Feet With Shoes and Socks Never go barefoot. Always protect your feet by wearing shoes or hard-soled slippers or footwear. Avoid shoes with high heels and pointed toes. Avoid shoes that expose your toes or heels (such as open-toed shoes or sandals). These types of shoes increase your risk for injury and potential infections. Try on new footwear with the type of socks you usually wear. Do not wear new shoes for more than an hour at a time. Change your socks daily. Look and feel inside your shoes before putting them on to make sure there are no foreign objects orrough areas. Avoid tight socks. Wear natural-fiber socks (cotton, wool, or a cotton-wool blend). Wear special shoes if your health care provider recommends them. Wear shoes/boots that will protect your feet from various weather conditions (cold, moisture, etc.). Make sure your shoes fit properly. If you have neuropathy (nerve damage), you may not notice that your shoes are too tight. Perform the footwear test described below. Footwear Test Use this simple test to see if your shoes fit correctly: Stand on a piece of paper. (Make sure you are standing and not sitting, because your foot changes shape when you stand.) Trace the outline of your foot. Trace the outline of your shoe. Compare the tracings: Is the shoe too narrow? Is your foot crammed into the shoe? The shoe should be at least 1/2 inch longer than your longest toe and as wide as your foot. Proper Shoe Choices The following types of shoes are best for people with diabetes Closed toes and heels Leather uppers without a seam inside At least 1/2 inch extra space at the end of your longest toe Inside of shoe should be soft with no rough areas Outer sole should be made of stiff material Shoes should be at least as wide as your feet Tips for Foot Care in Diabetes Don't wait to treat a minor foot problem if you have diabetes. Follow your health care provider's guidelines and first aid guidelines. Report foot injuries and infections to your health care provider immediately. Check water temperature with your elbow, not your foot. Do not use a heating pad on your feet. Do not cross your legs. Do not self-treat your corns, calluses, or other foot problems. Go to your health care provider or director data processing to treat these conditions. documented in this [facility] History of Present illness Narrative* Margarito Joseph - 04/22/2023 1:59 PM EDT Last saw pcp: 04/02/[address] Krause for an opinion regarding Diabetic foot exam. My final recommendations will be communicated back to the requesting physician by way of shared Medical record or letter to requesting physician via US mail. Initial Office Visit Subjective: This 68 year old male presents to clinic for diabetic foot check. Patient admits to being diabetic for 10+ years now. Patient -B/T/N in feet at this time. Patient -pain in legs when walking. No other pedal complaints at this time. No change in medications or medical history since last visit. PAIN EVALUATION No data found in the last 1 encounters. Hemoglobin A1C (%) Date Value 04/02/2023 7.5 09/22/2022 7.8 02/13/2022 6.7 06/27/2021 7.3 11/04/2020 8.2 06/11/2020 7.9 08/16/2019 7.7 04/07/2019 6.9 PCP: Grant Krause MD PAST MEDICAL HISTORY Diagnosis Date Alcohol abuse 03/05/2012 Arthritis Asthma CAD (coronary artery disease), squaxin coronary artery 03/05/2012 COPD (chronic obstructive pulmonary disease) ([facility]) COVID-19 04/24/2022 Hypertension Hypertrophy of prostate without urinary obstruction and other lower urinary tract symptoms (LUTS) 07/28/2007 Left knee pain Marijuana use Nocturnal hypoxia 10/06/2017 Obesity (BMI 30-39.9) Obstructive sleep apnea 10/06/2017 DME [place] Other and unspecified hyperlipidemia Stented coronary artery 03/08/2012 Tubular adenoma of colon 08/03/2012 Type 2 diabetes mellitus with stage 3a chronic kidney disease, without long-term current use of insulin ([facility]) 09/26/2022 Type II or unspecified type diabetes mellitus without mention of complication, not stated as uncontrolled 09/05/2007 Unstable angina ([facility]) 07/28/2013 Current Outpatient Medications Medication Sig rosuvastatin (CRESTOR) 40 mg tablet Take 1 tablet by mouth daily at bedtime. For cholesterol. glipiZIDE (GLUCOTROL XL) 2.5 mg 24 hr tablet Take 1 tablet by mouth once daily. lisinopril (ZESTRIL) 10 mg tablet Take 1 tablet by mouth once daily. sildenafil (VIAGRA) 50 mg tablet Take 1 tablet by mouth as needed. Take 1/2 hour before sexual activity, as directed for e.d. metFORMIN (GLUCOPHAGE) 500 mg tablet Take 2 tablets by mouth twice daily with meals. . tamsulosin (FLOMAX) 0.4 mg Take 1 capsule by mouth once daily. gabapentin (NEURONTIN) 100 mg capsule Take 1 capsule by mouth twice daily for 180 days. metoprolol tartrate, short acting, (LOPRESSOR) 25 mg tablet Take 1 tablet by mouth twice daily. empagliflozin (JARDIANCE) 25 mg tablet Take 1 tablet by mouth once daily. Take 1 tablet once daily in the morning ranolazine SR (RANEXA) 1,000 mg tab ER 12 hr Take 1 tablet by mouth twice daily. Per CARDIOLOGY. nitroglycerin sublingual (NITROQUICK) 0.4 mg SL tablet Dissolve 1 tablet under the tongue as neededfor chest pain. Fenofibrate (LOFIBRA) 160 mg tablet Take 1 tablet by mouth once daily. albuterol HFA (PROVENTIL HFA, VENTOLIN HFA) 90 mcg/actuation inhaler Inhale 2 Puffs as instructed every 6 hours as needed for wheezing/shortness of breath. CPAP Settings 5 - 15 cm H2O, suitable mask per pt preference, chin strap, head gear, humidity, tubing, lifetime supplies. G47.33 Obstructive Sleep Apnea aspirin, enteric coated (ECOTRIN LOW STRENGTH) 81 mg EC tablet Take 1 tablet by mouth once daily. No current facility-administered medications for this visit. ALLERGIES No Known Allergies PAST SURGICAL HISTORY Procedure Laterality Date COLONOSCOPY 09/23/2022 poor bowel prep-repeat in 1 year COLONOSCOPY FLX DX W/COLLJ SPEC WHEN PFRMD 08/03/2012 Colonoscopy COLONOSCOPY FLX DX W/COLLJ SPEC WHEN PFRMD 12/16/2016 Colonoscopy mac EYE SURGERY HX HERNIA REPAIR HX LEFT HEART CATH,PERCUTANEOUS 07/31/2013 Cardiac cath, L heart LEFT HEART CATH,PERCUTANEOUS 07/23/2015 Cardiac cath, L heart PAST SURGICAL HISTORY OF 1967 circumcision PAST SURGICAL HISTORY OF Left 1968 eye surgery left eye only PAST SURGICAL HISTORY OF 03/24/2004 Umbilical hernia repair TONSILLECTOMY & ADENOIDECTOMY <AGE 10 8 TONSILLECTOMY HX TRANSCATH STENT INIT VESSEL,PERCUT 03/07/2012 Transcath stent init vessel percut FAMILY HISTORY Problem Relation Age of Onset Heart Father of [place] approximately age 40s COPD Mother Diabetes Mother Hypertension Mother Arthritis Brother Diabetes Sister Social History Tobacco Use Smoking status: Never Smokeless tobacco: Never Vaping Use Vaping Use: Never used Substance Use Topics Alcohol use: Not Currently Comment: does not drink alcohol routinely Drug use: Not Currently REVIEW OF SYSTEMS GENERAL: Negative for Malaise, significant weight loss, fever RESPIRATORY: Negative for cough, wheezing and shortness of breath CARDIOVASCULAR: Negative for chest pain, leg swelling and palpitations GI: Negative for abdominal discomfort, blood in stools or black stools and change in bowel habits : Negative for dysuria, frequency and incontinence MUSCULOSKELETAL: Negative for joint pain or swelling, back pain, and muscle pain. SKIN: Negative for lesions, rash, and itching. HEMATOLOGY/LYMPHOLOGY Negative for prolonged bleeding, bruising easily, and swollen nodes. ENDOCRINE: Negative for cold or heat intolerance, polyuria, polydipsia and goiter. NEURO: negative The remainder of the review of systems is noncontributory. Objective: Patient presents to clinic ambulating in sneakers Constitutional: Pt is a well developed 68 year old male who is alert, oriented, cooperative and in no apparent distress. Eyes: Following during examination. No redness or drainage. Respiratory: RR normal and nonlabored. Even breathing. No evidence of distress. Psychology: Patient is engaged during conversation. Normal affect and mood. Does not appear depressed or anxious. Vasc: DP and PT pulses are faintly palpable bilateral. CFT is less than 5 seconds bilateral. Skin temperature is warm to cool proximal to distal bilateral. There is mild edema or varicosities noted. Hair growth absent. Neuro: Protective sensation is present to the foot and toes when tested with the 5.07 SWM bilateral. Vibratory sensation is absent at the hallux bilateral. + Significant neurological defecits. Derm: Inspection and palpation performed. Nails 1-5 b/l are painful, discolored- yellow, thick, crumbly, dystrophic and with subungal debris. Skin is of normal turgor and texture. Hyperkeratosis notedto not present. NO ulcerations, scars, verruca or other lesions noted. Ortho: Ankle joint DF is decreased with the knee extended and decreased with knee flexed. No pain or crepitus noted. STJ, MTJ ROM are full and free of pain or crepitus. Muscle strength is 5/5 for dorsiflexors, plantarflexors, inverters, everters. Digital deformities include large bunion b/l. Assessment: (E08.41) Diabetic mononeuropathy associated with diabetes mellitus due to underlying condition (HCC) (primary encounter diagnosis) (M20.10) Acquired hallux valgus, unspecified laterality (B35.1) Onychomycosis (M79.675) Pain in toe of left foot (M79.674) Pain in toe of right foot Plan: 1. Patient was seen and evaluated. 2. Patient was instructed on the continued importance of diabetic foot care along with proper diet and keeping their blood sugar under control to prevent complications. Instructions given both oral and written. 3. Discussed bunion of b/l feet. Would recommend wider shoes. Due to presence of diabetic neuropathy with deformity, will order diabetic shoes 4. Toenails 1-5 b/l debrided in length and thickness Margarito Joseph DPM * Camryn Portillo RN - 04/22/2023 1:53 PM EDT Patient presents with: Left Foot - New Patient, Diabetic Foot Care Right Foot - New Patient, Diabetic Foot Care Patient referred by PCP for a diabetic foot exam. Denies any open wounds. [facility] Miscellaneous Notes* Telephone Encounter - Johanny Palomo LPN - 04/07/2023 12:58 PM EDT Patient notified, he will picker operator RX from pharmacy Johanny Palomo LPN * Telephone Encounter - Johanny Palomo LPN - 04/07/2023 12:55 PM EDT ----- Message from Grant Krause MD sent at 04/06/2023 8:46 PM EDT ----- Test results are okay but diabetes is elevating. Add glipizide ER 2.5 mg every AM with meal. documented in this [facility]07-07-2023 Instructions* Patient Instructions* Grant Krause MD - 04/02/2023 1:34 PM EDT BLOOD WORK TODAY. documented in this [facility]07-07-2023 History of Present illness Narrative* Grant Krause MD - 04/02/2023 1:22 PM EDT This note was created using [employer]. Subjective Xavi Cabello is a 68 year old male. He was doing well. Weight was going up. He was not checking his blood sugars. [facility] see [facility]. Review of Systems Constitutional: Positive for unexpected weight change. Negative for appetite change, chills and fever. Respiratory: Negative for chest tightness and shortness of breath. Cardiovascular: Positive for leg swelling. Negative for chest pain and palpitations. Gastrointestinal: Negative for abdominal pain, nausea and vomiting. Genitourinary: Negative for difficulty urinating. ACTIVE PROBLEM LIST Mixed Hyperlipidemia Type 2 Diabetes Mellitus With Stage 3a Chronic Kidney Disease, Without Long-Term Current Use of Insulin (Hcc) Cad (Coronary Artery Disease), [place] Coronary Artery Stented Coronary Artery Benign Prostatic Hyperplasia Without Lower Urinary Tract Symptoms Marijuana Use Essential Hypertension Male Erectile Dysfunction, Unspecified Tubular Adenoma of Colon Obstructive Sleep Apnea Nocturnal Hypoxia Bronchitis With Bronchospasm Erectile Dysfunction Obesity, Class I, Bmi 30-34.9 Tinnitus Oral Dyskinesia Primary Osteoarthritis of Left Knee Social History Tobacco Use Smoking status: Never Smokeless tobacco: Never Vaping Use Vaping Use: Never used Substance Use Topics Alcohol use: Not Currently Comment: does not drink alcohol routinely Drug use: Not Currently Current Outpatient Medications Medication Sig lisinopril (ZESTRIL) 10 mg tablet Take 1 tablet by mouth once daily. sildenafil (VIAGRA) 50 mg tablet Take 1 tablet by mouth as needed. Take 1/2 hour before sexual activity, as directed for e.d. metFORMIN (GLUCOPHAGE) 500 mg tablet Take 2 tablets by mouth twice daily with meals. . tamsulosin (FLOMAX) 0.4 mg Take 1 capsule by mouth once daily. gabapentin (NEURONTIN) 100 mg capsule Take 1 capsule by mouth twice daily for 180 days. metoprolol tartrate, short acting, (LOPRESSOR) 25 mg tablet Take 1 tablet by mouth twice daily. empagliflozin (JARDIANCE) 25 mg tablet Take 1 tablet by mouth once daily. Take 1 tablet once daily in the morning rosuvastatin (CRESTOR) 40 mg tablet Take 1 tablet by mouth daily at bedtime. For cholesterol. ranolazine SR (RANEXA) 1,000 mg tab ER 12 hr Take 1 tablet by mouth twice daily. Per CARDIOLOGY. nitroglycerin sublingual (NITROQUICK) 0.4 mg SL tablet Dissolve 1 tablet under the tongue as neededfor chest pain. Fenofibrate (LOFIBRA) 160 mg tablet Take 1 tablet by mouth once daily. albuterol HFA (PROVENTIL HFA, VENTOLIN HFA) 90 mcg/actuation inhaler Inhale 2 Puffs as instructed every 6 hours as needed for wheezing/shortness of breath. CPAP Settings 5 - 15 cm H2O, suitable mask per pt preference, chin strap, head gear, humidity, tubing, lifetime supplies. G47.33 Obstructive Sleep Apnea aspirin, enteric coated (ECOTRIN LOW STRENGTH) 81 mg EC tablet Take 1 tablet by mouth once daily. No current facility-administered medications for this visit. Objective BP 114/72 Pulse 64 Resp 18 Wt 98.9 kg (218 lb) BMI 35.04 kg/m Physical Exam Constitutional: Appearance: He is obese. Cardiovascular: Rate and Rhythm: Normal rate and regular rhythm. Heart sounds: No murmur heard. No gallop. Pulmonary: Breath sounds: Normal breath sounds. No wheezing or rales. Abdominal: Palpations: Abdomen is soft. Tenderness: There is no abdominal tenderness. Musculoskeletal: Right lower le+ Pitting Edema present. Left lower le+ Pitting Edema present. Neurological: Mental Status: He is alert. Gait: Gait normal. Feet:Shoes and socks removed, No ulcers, calluses, normal distal pulses, sensitive to 10 gm monofilament, and nails notable for Deformed. Flat feet. Bunions bilateral with right sided erythema. Assessment and Plan 1. Type 2 diabetes mellitus with stage 3a chronic kidney disease, without long- term current use of insulin (HCC) - ICD9: 250.40, 585.3, ICD10: E11.22, N18.31 (primary diagnosis) - Controlled - Continue current medications - COMP METABOLIC PANEL - HGB A1C - CONSULT TO PODIATRY 2. Essential hypertension - ICD9: 401.9, ICD10: I10 - Controlled - CBC 3. Coronary artery disease involving squaxin coronary artery of squaxin heart without angina pectoris- ICD9: 414.01, ICD10: I25.10 [facility]. 4. Mixed hyperlipidemia - ICD9: 272.2, ICD10: E78.2 - Controlled - Continue current medications - LIPID PANEL BASIC 5. Obesity, Class II, BMI 35-39.9 - ICD9: 278.00, ICD10: E66.9 Weight increasing - Behavioral intervention 6. Bunion - ICD9: 727.1, ICD10: M21.619 - CONSULT TO PODIATRY Grant Krause MD documented [facility] Evaluation note* Diagnosis Type 2 diabetes mellitus with stage 3a chronic kidney disease, without long-term current use of insulin (HCC)- Primary Essential hypertension Unspecified essential hypertension Coronary artery disease involving squaxin coronary artery of squaxin heart without angina pectoris Mixed hyperlipidemia Obesity, Class II, BMI 35-39.9 Obesity, unspecified Bunion documented in this encounter [facility] Miscellaneous Notes* Telephone Encounter - Marino Weiss Ma - 03/23/2023 2:38 PM EDT [facility]: 12/16/2022 Last refill: 09/01/2022 QTY: 90 Refills: 1 * Telephone Encounter - Lesa Ledesma - 03/23/2023 2:03 PM EDT Patient has been identified by name and date of : Yes Requested Prescriptions Pending Prescriptions Disp Refills lisinopril (ZESTRIL) 10 mg tablet 90 tablet 1 Sig: Take 1 tablet by mouth once daily. RX INSTRUCTIONS: Patient aware RX will be sent to pharmacy. No need to notify patient. Lesa Ledesma documented in this [facility]Par[facility]04[facility]23 Miscellaneous Notes* Telephone Encounter - Marino Weiss Ma - 01/19/2023 4:20 PM EDT [place]: 12/16/2022 Last refill: 06/29/2022 QTY: 120 Refills: 5 * Telephone Encounter - Karishma Higginbotham Pss - 01/19/2023 4:13 PM EDT Patient has been identified by name and date of : Yes Requested Prescriptions Pending Prescriptions Disp Refills metFORMIN (GLUCOPHAGE) 500 mg tablet 120 tablet 11 Sig: Take 2 tablets by mouth twice daily with meals. . RX INSTRUCTIONS: Patient aware RX will be sent to pharmacy. No need to notify patient. Karishma Higginbotham Pss documented in this [facility]04[facility] History of Present illness Narrative* Nilda Kim PA-C - 2023 3:22 PM EDTAssociated Order(s): Large Joint Arthro/Inj: L knee joint Post-Procedure Diagnose(s): Primary osteoarthritis of left knee Nilda Kim PA-C Department of Orthopaedics Orthopaedics [address] [facility] [address] Dept: [phone] Dept 2023 CHIEF COMPLAINT: Follow Up of the Left Knee and 6 1/2 months post visit OA left knee with injectiongiven. ASSESSMENT: No diagnosis found. SUMMARY/PLAN: Patient presents for repeat left knee corticosteroid injection, his last injection was 6 months ago, he got several months of relief from his injection but tells me that he probably should have return sooner for a repeat injection. We will repeat today, I did advise him to make a follow-up for 91 days from now so that we can do another injection. Large Joint Arthro/Inj: L knee joint Informed Consent Consent Obtained: Verbal [place] Protocol A moment to CARE was completed. SIGN IN Sign in communication not applicable due to emergent procedure. Personnel directly involved with the procedure wore the appropriate PPE. Special Equipment: N/A Patient/Surrogate Stated/Verified: Patient name, Date of , Relevant allergies and Intended procedure TIME OUT Intended patient and procedure match the source document(s). Relevant labs, photos, and/or imaging studies have been reviewed. Correct side/site marked and visible. Medications required for procedure verified. No fire risk assessment and interventions applicable. No implant(s) inserted. 2023 3:23 PM The procedure site was prepped in the usual sterile fashion. Site: L knee joint Medications: 6 mg betamethasone acetate-betamethasone sodium phosphate 6 mg/mL Anesthetics: 4 mL lidocaine (PF) 10 mg/mL (1 %) Outcome: Tolerated well, no immediate complications Post-injection instructions were reviewed with the patient and the patient voiced understanding of these instructions. SIGN OUT All instruments, equipment, possible retained foreign bodies accounted for. Mr. Xavi Cabello was advised as to contrast therapies and/or to take analgesics/anti-inflammatories as needed and all contraindications were reviewed. Supporting Information Below: Medications: Current Outpatient Medications Medication Sig tamsulosin (FLOMAX) 0.4 mg Take 1 capsule by mouth once daily. gabapentin (NEURONTIN) 100 mg capsule Take 1 capsule by mouth twice daily for 180 days. metoprolol tartrate, short acting, (LOPRESSOR) 25 mg tablet Take 1 tablet by mouth twice daily. empagliflozin (JARDIANCE) 25 mg tablet Take 1 tablet by mouth once daily. Take 1 tablet once daily in the morning rosuvastatin (CRESTOR) 40 mg tablet Take 1 tablet by mouth daily at bedtime. For cholesterol. sildenafil (VIAGRA) 50 mg tablet Take 1 tablet by mouth as needed. Take 1/2 hour before sexual activity, as directed for e.d. ranolazine SR (RANEXA) 1,000 mg tab ER 12 hr Take 1 tablet by mouth twice daily. Per CARDIOLOGY. lisinopril (ZESTRIL, PRINIVIL) 10 mg tablet Take 1 tablet by mouth once daily. nitroglycerin sublingual (NITROQUICK) 0.4 mg SL tablet Dissolve 1 tablet under the tongue as neededfor chest pain. Fenofibrate (LOFIBRA) 160 mg tablet Take 1 tablet by mouth once daily. metFORMIN (GLUCOPHAGE) 500 mg tablet Take 2 tablets by mouth twice daily with meals. . albuterol HFA (PROVENTIL HFA, VENTOLIN HFA) 90 mcg/actuation inhaler Inhale 2 Puffs as instructed every 6 hours as needed for wheezing/shortness of breath. CPAP Settings 5 - 15 cm H2O, suitable mask per pt preference, chin strap, head gear, humidity, tubing, lifetime supplies. G47.33 Obstructive Sleep Apnea aspirin, enteric coated (ECOTRIN LOW STRENGTH) 81 mg EC tablet Take 1 tablet by mouth once daily. No current facility-administered medications for this visit. Allergies: Patient has no known allergies. This note was partially generated using [employer] voice recognition system, and there may be some incorrect words, spellings, and punctuation that were not noted in checking the note before saving. Nilda Kim PA-C * Madelin Bee Ma - 2023 2:21 PM EDT Patient presents with: Left Knee - Follow Up 6 1/2 months post visit OA left knee with injection given AMB ROOMING INTAKE FLOWSHEET DATA Pain Pain Level: 5 Pain Location: Knee-Left Description: Aching Duration Amount of Time: (Ongoing) Frequency: Intermittent Patient states injection helped. He would like injection today. Taking no med's for the pain. documented [facility]23 Miscellaneous Notes* Telephone Encounter - Ivonne Presley LPN - 12/28/2022 10:07 AM EDT Problem has been resolved. * Telephone Encounter - Malia Arndt LPN - 12/28/2022 9:59 AM EDT Patient calling he thinks he lost his Gabapentin 100 mg rx, he has looked all over for it. He is calling the pharmacy to make sure he did get the refill picked up. He will call office back. documented in this encounterPar[facility]03[facility]24-2023 Miscellaneous Notes* Telephone Encounter - Shanae Tam RN - 12/18/2022 2:26 PM EDT Patient has been identified by name and date of : Yes, Shanae Tam RN Date 12/18/2022 Time 2:25 pm Patient phones for refill(s): Requested Prescriptions Pending Prescriptions Disp Refills tamsulosin (FLOMAX) 0.4 mg 90 capsule 3 Sig: Take 1 capsule by mouth once daily. Date of last office visit with pcp: 12/16/2022 Future appt:03/24/2023 Last 2 Encounter Wt Readings: Date: Wt: 12/16/2022 98 kg (216 lb) 09/25/2022 94.3 kg (208 lb) Previous labs/tests for medication: Blood Pressure: BUN (mg/dL) Date Value 09/22/2022 24 11/20/2020 14 Sodium (mmol/L) Date Value 09/22/2022 138 11/20/2020 142 Last 1 Encounter BP Readings: Date: BP: 12/16/2022 113/77 Liver Function: ALT (U/L) Date Value 02/13/2022 12 11/04/2020 17 AST (U/L) Date Value 02/13/2022 16 11/04/2020 23 Please advise. Thank you. Shanae Tam RN documented in this encounterPar[facility]03-22-2023 Instructions* Patient Instructions* Liat Emery APRN.BRAKE MACHINE OPERATOR - 12/16/2022 3:24 PM EDT Have blood work completed that is ordered, you should be fasting for 10-12 hours for this. Water isokay. WHAT YOU CAN DO TO PREVENT FALLS Many falls can be prevented. By making some changes, you can lower your chances of falling. Four things YOU can do to prevent falls for you* and your caregiver 1. Begin a regular exercise program Exercise is one of the most important ways to lower your chances of falling. It makes you stronger and helps you feel better. Exercises that improve balance and coordination (like Richy Chi) are the most helpful. Lack of exercise leads to weakness and increases your chances of falling. Ask your doctor or health care provider about the best type of exercise program for you. 2. Have your health care provider review your medicines Have your doctor or pharmacist review all the medicines you take, even [id number] medicines. As you get older, the way medicines work in your body can change. Some medicines, or combinations of medicines, can make you sleepy or dizzy andcan cause you to fall. 3. Have your vision checked Have your eyes checked by an eye doctor at least once a year. You may be wearing the wrong glasses or have a condition like glaucoma or cataracts that limits your vision. Poor vision can increase your chances of falling. 4. Make your home safer About half of all falls happen at home. To make your home safer: Remove things you can trip over (like papers, books, clothes, and shoes) from stairs and places where you walk. Remove small throw rugs or use double-sided tape to keep the rugs from slipping. Keep items you use often in cabinets you can reach easily without using a step stool. Have grab bars put in next to your toilet and in the tub or shower. Use non-slip mats in the bathtub and on shower floors. Improve the lighting in your home. As you get older, you need brighter lights to see well. Hang light-weight curtains or shades to reduce glare. Have handrails and lights put in on all staircases. Wear shoes both inside and outside the house. Avoid going barefoot or wearing slippers. For more information, contact: Centers for Disease Control and Prevention www.cdc.gov/injury * This information may not apply if you have certain medical conditions. documented in this encounterPar[facility]03-22-2023 History of Present illness Narrative* Liat Emery APRN.CNP - 12/16/2022 3:22 PM EDT Xavi Cabello is a 67 year old male here for a Medicare Subsequent Annual Wellness Visit Health Risk Assessment In general, health is: Very good Concerns with balance:occasionally, no falls Concerns with teeth or dentures:needs dental implants Concerns with sexual function:Not at all [place] anxious, stressed, angry, irritable, lonely, isolated, or had thoughts of hurting themself: Not at all Has little interest or pleasure in doing things: Not at all Bothered by feeling down, depressed, or hopeless: Not at all Needs help with grocery shopping, cooking, housework, bathing, grooming, dressing, eating, sitting or standing, walking, using the toilet, handling finances, taking medications, using the telephone, or driving: No Following safety precautions in the home environment and vehicle: removed throw rugs from floors, installed grab bars in the bathroom, handrails in stairwells, having adequate lighting, wearing seatbelt at all times?: Yes Smokes cigarettes, vapes, or chew tobacco: No Eats healthy foods including fruits, vegetables, whole grains, and fiber-rich foods: Several days Number of days per week engages in exercise: denies routine aerobic exercise, sedentary lifestyle Average alcohol consumption: Never Current Providers Specialists: I have reviewed specialist-related care of the patient in the medical record. Current care team: Patient Care Team: Grant Krause MD as PCP - General Outside specialists seen: Mo Hatfield as Physician (Cardiology) Production Welder- unsure of name Orthopedics- [facility] Medical/Family history review Reviewed and updated problem list, medical/surgical/family/social history, medications, and allergies. Opioid use review Patient is not currently using opioids. Depression screening Depression Screening PHQ-2 Score PHQ-9 Score MAT-2 Total Score 12/16/2022 0 - - Depression screening tool completed and reviewed. Based on score and interview, patient is not at risk for depression. Screening tool discussed with patient, and I recommended no further interventionat this time. Cognitive screening Mini Cog Score: 5 Cognitive screening reviewed and no further action needed (score 3-5) Functional Observation Was the patient's timed Up & Go test unsteady or ? 12 seconds? No Advance Care Planning End of Life planning discussed, including patient's advanced directive wishes: Yes Measurements BP 113/77 Pulse 69 Resp 18 Ht 5' 6.142 (1.68m) Wt 216 lb (98.0kg) BMI 34.71 kg/(m^2). Visual acuity (required for Welcome to Medicare): follows with optometry/ophthalmology Hearing Evaluation: within normal limits ASSESSMENT/PLAN: 1. Medicare annual wellness visit, initial - ICD9: V70.0, ICD10: Z00.00 (primary diagnosis) The following prevention plan was discussed during the office visit and provided to the patient: - fall risk reduction - Counseled on healthy diet and regular exercise - Discussed need for and benefit of weight loss. BMI 34.71 kg/(m^2) - follow-up for medicare annual exam in one year 2. Oral dyskinesia - ICD9: 333.82, ICD10: G24.4 - GABAPENTIN 100 MG CAPSULE refilled documented in this encounterPar[facility]02-28-2023 Miscellaneous Notes* Telephone Encounter - Hillary Flores LPN - 11/24/2022 2:45 PM EST Last seen pcp 09/25/22. Next appt with SENIOR ORACLE DATABASE DEVELOPER 12/16/22. * Telephone Encounter - Symone Hsieh Pss - 11/24/2022 1:38 PM EST Patient has been identified by name and date of : Yes Requested Prescriptions Pending Prescriptions Disp Refills metoprolol tartrate, short acting, (LOPRESSOR) 25 mg tablet 60 tablet 1 Sig: Take 1 tablet by mouth twice daily. RX INSTRUCTIONS: Patient aware RX will be sent to pharmacy. No need to notify patient. Symone Hsieh Pss documented in this encounterPar[facility]02-20-2023 History of Present illness Narrative* Bri Strickland MA - 11/16/2022 1:47 PM EST POPULATION HEALTH NAVIGATION OUTREACH Action/FYI Unable to lm, notes added to upcoming ov. Letter mailed to review hcc gaps, diabetic retinal eye exam, colonoscopy Patient Identified by Name and : NO Outreach Outcome/Action Unable to reach patient: Phone number not valid / voicemail full Letter mailed Did you use a PCP flex slot to schedule this appointment? N/A Reason for Outreach Care Gap or Scheduling/Wellness visits Payer: Payor: [employer] MEDICARE / Plan: [employer] / Product Type: HMO / Care Gap Reviewed:: Colorectal Cancer Screening Diabetic Eye Exam Reminder: Reminder note to check Health Maintenance for items below Health Maintenance items due: DTAP,TDAP,TD(2 - Td or Tdap) due on 07/28/2017 BP CONTROLLED (<130/80) due on 01/03/2022 ADVANCE DIRECTIVE DISCUSSION Never done DEPRESSION ASSESSMENT Never done Navigation Signature: Bri Strickland MA November 16, 2022 1:47 PM documented in this encounterPar[facility]02-06-2023 Miscellaneous Notes* Telephone Encounter - Marino Weiss Ma - 11/02/2022 3:30 PM EST WALT: 09/25/2022 Last refill: 07/25/2022 QTY: 90 Refills: 1 * Telephone Encounter - [facility] - 11/02/2022 2:45 PM EST Patient has been identified by name and date of : Yes Requested Prescriptions Pending Prescriptions Disp Refills empagliflozin (JARDIANCE) 25 mg tablet 90 tablet 3 Sig: Take 1 tablet by mouth once daily. Take 1 tablet once daily in the morning RX INSTRUCTIONS: Patient aware RX will be sent to pharmacy. No need to notify patient. [facility] documented in this encounterPar[facility]01-05-2023 Miscellaneous Notes* Telephone Encounter - Shefali Arias - 10/01/2022 12:55 PM EST Patient is calling again in regards to the previous request for rosuvastatin. He states he only hasfour doses remaining and will need to refill prior to the weekend. * Telephone Encounter - Ese Bailey LPN - 09/30/2022 1:01 PM EST Patient has a current script for sildenafil at [facility] that was sent 09/28/22. Last office visit: 09/25/22 Next appointment scheduled: 12/16/22 Last labs: 02/13/22 Last lipid panel Patient phones requesting refills as follows: Requested Prescriptions Pending Prescriptions Disp Refills rosuvastatin (CRESTOR) 40 mg tablet 90 tablet 1 Sig: Take 1 tablet by mouth daily at bedtime. For cholesterol. Please review and advise. Ese Bailey LPN * Telephone Encounter - Shefali Arias - 09/30/2022 12:04 PM EST Patient has been identified by name and date of : Yes, Provider JIMI Patient phones for refill(s): Requested Prescriptions Pending Prescriptions Disp Refills sildenafil (VIAGRA) 50 mg tablet 5 tablet 5 Sig: Take 1 tablet by mouth as needed. Take 1/2 hour before sexual activity, as directed for e.d. rosuvastatin (CRESTOR) 40 mg tablet 90 tablet 1 Sig: Take 1 tablet by mouth daily at bedtime. For cholesterol. Date of last office visit in primary care: 09/25/22 Last 2 Encounter Wt Readings: Date: Wt: 09/25/2022 94.3 kg (208 lb) 08/05/2022 93.4 kg (206 lb) Previous labs/tests for medication: Not applicable Please advise. Thank you. Shefali Arias documented in this encounterPar[facility]01-02-2023 Miscellaneous Notes* Telephone Encounter - Grant Krause MD - 09/28/2022 10:55 PM EST Patient's request for medication is as follows Requested Prescriptions Signed Prescriptions Disp Refills sildenafil (VIAGRA) 50 mg tablet 5 tablet 5 Sig: Take 1 tablet by mouth as needed. Take 1/2 hour before sexual activity, as directed for e.d. Authorizing Provider: GRANT KRAUSE Refused Prescriptions Disp Refills ranolazine ER (RANEXA) 500 mg 12 hr tablet Sig: Take 1 tablet by mouth twice daily. 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 Grant Krause MD * Telephone Encounter - Fadumo Barnett - 09/25/2022 10:12 AM EST Patient has been identified by name and date of : Yes, Provider GRANT KRAUSE Date 09/25/22Time 1014 Patient phones for refill(s): Requested Prescriptions Pending Prescriptions Disp Refills ranolazine ER (RANEXA) 500 mg 12 hr tablet Sig: Take 1 tablet by mouth twice daily. sildenafil (VIAGRA) 50 mg tablet 5 tablet 5 Sig: Take 1 tablet by mouth as needed. Take 1/2 hour before sexual activity, as directed for e.d. Date of last office visit in primary care: 05/11/22 Last 2 Encounter Wt Readings: Date: Wt: 08/05/2022 93.4 kg (206 lb) 05/11/2022 88.4 kg (194 lb 12.8 oz) Previous labs/tests for medication: Not applicable PATIENT REQUESTED 1000 MG OF RANOLAZINE INSTEAD OF 500 MG. Please advise. Thank you. Fadumo Barnett documented in this encounterPar[facility]12-28-2022 Nurse Note* Nini Pierce RN - 09/23/2022 12:43 PM EST Patient arrived laying on his left side. States he is having 7/10 pain in abdomen. Abdomen appears to be slightly distended and soft to touch. Patient encouraged to pass gas or belch to relieve gas pain. documented in this encounterPar[facility]12-28-2022 History and physical note * Madelin Blanc MD - 09/23/2022 11:15 AM EST UPDATED PROCEDURAL SEDATION HISTORY AND PHYSICAL EXAMINATION SERVICE DATE: 09/23/2022 SERVICE TIME: 11:25 PHYSICAL EXAM MUST BE COMPLETED ON ADMISSION PROCEDURE: colonoscopy, possible biopsies Procedure Indications: screening for colon cancer The History and Physical (completed in the past 30 days) has been reviewed and the patient has beenexamined. The contents accurately reflect the patient's condition with the following additions or revisions since the H&P was completed. ASA Class: ASA Class:: Patient with mild systemic disease Examination indicates no changes. AIRWAY: Airway Visualization of Uvula: Yes Mouth opening greater than 2 fingerbreadths: Yes Neck Full Range of Motion: Yes LUNGS: Lungs clear to auscultation CARDIAC: Regular rhythm,Regular rate Provisional Diagnosis/Treatment Plan: colonoscopy, possible biopsies SEDATION GOAL: Moderate This H&P can be found in the Electronic Medical Record . SIGNATURE: Madelin Blanc MD PATIENT NAME: Xavi Cabello DATE: September 23, 2022 TIME: 11:25 AM Source Note - Madelin Blanc MD - 09/23/2022 11:15 AM EST HISTORY AND PHYSICAL Xavi Cabello 1955 REFERRING PHYSICIAN: Self CHIEF COMPLAINT: Consult (colonoscopy/) HPI: The patient is a 67 year old male referred for endoscopy. He was found to have tubular adenomaby colonoscopy in 2011. Xavi denies blood in stools, denies abdominal pain, and denies changes in bowel habits. He notes occasional blood on toilet paper. He notes loose stools with diary products. The patient notes no colon cancer in immediate family. The patient has had previous colonoscopy in 2017 - hyperplastic polyp found. Patient has multiple medical problems. He has poorly controlled diabetes as demonstrated by persistently elevated HgbA1c. He has hypertension, ALBAN, obesity and cardiac disease. Cardiac workup - ECHO EF 65% Nuclear stress test - area of diminished cardiomyocardial perfusion/tracer uptake A cardiac catheterization was recommended. Patient is pending follow up with cardiology to go over this. PAST MEDICAL HISTORY Diagnosis Date Alcohol abuse 03/05/2012 CAD (coronary artery disease), squaxin coronary artery 03/05/2012 COVID-19 04/24/2022 Hypertension Hypertrophy of prostate without urinary obstruction and other lower urinary tract symptoms (LUTS) 07/28/2007 Left knee pain Marijuana use Nocturnal hypoxia 10/06/2017 Obesity (BMI 30-39.9) Obstructive sleep apnea 10/06/2017 [facility] Other and unspecified hyperlipidemia Stented coronary artery 03/08/2012 Tubular adenoma of colon 08/03/2012 Type II or unspecified type diabetes mellitus without mention of complication, not stated as uncontrolled 09/05/2007 Unstable angina (HCC) 07/28/2013 PAST SURGICAL HISTORY Procedure Laterality Date COLONOSCOPY FLX DX W/COLLJ SPEC WHEN PFRMD 08/03/2012 Colonoscopy COLONOSCOPY FLX DX W/COLLJ SPEC WHEN PFRMD 12/16/2016 Colonoscopy mac LEFT HEART CATH,PERCUTANEOUS 07/31/2013 Cardiac cath, L heart LEFT HEART CATH,PERCUTANEOUS 07/23/2015 Cardiac cath, L heart PAST SURGICAL HISTORY OF 1968 circumcision PAST SURGICAL HISTORY OF Left 1968 eye surgery left eye only PAST SURGICAL HISTORY OF 03/24/04 Umbilical hernia repair TONSILLECTOMY & ADENOIDECTOMY <AGE 10 1957 TRANSCATH STENT INIT VESSEL,PERCUT 03/07/2012 Transcath stent init vessel percut Current Outpatient Medications Medication Sig empagliflozin (JARDIANCE) 25 mg tablet Take 1 tablet by mouth once daily. Take 1 tablet once daily in the morning metoprolol tartrate, short acting, (LOPRESSOR) 25 mg tablet Take 1 tablet by mouth twice daily. Fenofibrate (LOFIBRA) 160 mg tablet Take 1 tablet by mouth once daily. sildenafil (VIAGRA) 50 mg tablet Take 1 tablet by mouth as needed. Take 1/2 hour before sexual activity, as directed for e.d. metFORMIN (GLUCOPHAGE) 500 mg tablet Take 2 tablets by mouth twice daily with meals. . albuterol HFA (PROVENTIL HFA, VENTOLIN HFA) 90 mcg/actuation inhaler Inhale 2 Puffs as instructed every 6 hours as needed for wheezing/shortness of breath. rosuvastatin (CRESTOR) 40 mg tablet Take 1 tablet by mouth daily at bedtime. For cholesterol. lisinopril (ZESTRIL, PRINIVIL) 10 mg tablet Take 1 tablet by mouth once daily. tamsulosin (FLOMAX) 0.4 mg Take 1 capsule by mouth once daily. nitroglycerin sublingual (NITROQUICK) 0.4 mg SL tablet Dissolve 1 tablet under the tongue as neededfor chest pain. ranolazine ER (RANEXA) 500 mg 12 hr tablet Take 1 tablet by mouth twice daily. CPAP Settings 5 - 15 cm H2O, suitable mask per pt preference, chin strap, head gear, humidity, tubing, lifetime supplies. G47.33 Obstructive Sleep Apnea aspirin, enteric coated (ECOTRIN LOW STRENGTH) 81 mg EC tablet Take 1 tablet by mouth once daily. ALLERGIES: Patient has no known allergies. PERSONAL HISTORY: Social History Tobacco Use Smoking status: Never Smokeless tobacco: Never Vaping Use Vaping Use: Never used Substance Use Topics Alcohol use: Not Currently Comment: does not drink alcohol routinely Drug use: Not Currently Types: Marijuana Comment: not very often, less then weekly FAMILY HISTORY Problem Relation Age of Onset Heart Father of [place] approximately age 40s COPD Mother Diabetes Mother Hypertension Mother Arthritis Brother Diabetes Sister The review of systems data was entered by the nurse and reviewed by pr Nursing Notes: Peter LingYUN 08/05/2022 2:18 PM Signed REVIEW OF SYSTEMS: General: The patient notes fatigue, denies weight loss, denies weight gain, denies feeling hot, andnotes feelings of cold. Eyes: The patient denies glaucoma, notes eye injury/surgery, wears glasses or contacts. Ear/Nose/Throat: The patient denies allergies, denies hayfever, notes ear infections, and notes bloody noses. Cardiovascular: The patient notes chest pain, notes heart disease, notes high blood pressure,notes cardiac stent, denies prior heart attack, denies irregular heart beat, notes high cholesterol, denies poor circulation, denies heart failure, other cardiac issues, notes claudication, denies cold feet, denies peripheral arterial stent. Respiratory: The patient denies tuberculosis, notes pneumonia, notes frequent cough, denies pulmonary embolism, notes shortness of breath, and notes coughing up blood. Gastrointestinal: The patient denies difficulty swallowing, denies acid reflux, denies ulcers, notes vomiting, denies jaundice/hepatitis, denies gallbladder problems, denies black or tarry stools, notes hemorrhoids, notes bleeding from rectum, denies diverticulitis, denies constipation, notes diarrhea, notes loss of stool control, and notes hernias. Kidney/Bladder: The patient denies kidney stones, denies urine infections, and denies bloody urine. Skin: The patient denies a history of skin cancer, denies bleeding/changing moles, and denies a history of skin rash. Neurologic: The patient denies a history of epilepsy/convulsions, notes headaches, denies head/spinal injuries, and denies stroke/TIA. Psychiatric: The patient denies psychiatric medications, notes depression, and denies voices, notessubstance abuse. Endocrine: The patient denies thyroid disorders, notes diabetes, and denies hormonal problems. Hematologic: The patient denies a history of bruising, notes bleeding, and denies anemia, denies blood clots. Infections: The patient notes a history of measles and mumps, denies rheumatic fever, and denies sexually transmitted diseases. Musculoskeletal: The patient denies back pain/injury, notes back problems, notes sciatica, denies knee/foot trouble, denies arthritis, or denies gout. When was patient's last Mammogram screening? N/A Last Colonoscopy: 2016 Peter Ling LPN PHYSICAL EXAMINATION: General: The patient is 67 year old male, well nourished, well hydrated in no acute distress. The patient is oriented to time, place, and person. VITALS: Blood pressure 104/60, pulse 87, temperature 36.8 C (98.3 F), height 170.2 cm (5' 7), weight 93.4 kg (206 lb), SpO2 96 %. Body mass index is 32.26 kg/m . Head: Normal cephalic, atraumatic Eyes: pupils are equally round, sclera are clear/anicteric Neck is supple with no tracheal deviation Respiratory: Normal respiratory excursion and pattern. Abdominal exam: benign Extremities: no clubbing, cyanosis or edema. Neuro: non focal Psych: normal mood IMPRESSION: history of colon polyp PLAN: I have discussed the above with the patient. I have offered colonoscopy , possible biopsies I have explained the procedure to the patient. I have counseled the patient as to the risks of the procedure, including but not limited to: infection, bleeding, injury to any intrabdominal organs such as liver/spleen, perforation of the GI tract,inability to complete the procedure, complications of anesthesia, etc. - the patient understands. The patient wishes to proceed. I have answered all questions to the patient s satisfaction and the patient has no further questions. Diagnoses: (Z86.010) History of colonic polyps (primary encounter diagnosis) Madelin Blanc MD * Madelin Blanc MD - 09/23/2022 11:15 AM EST HISTORY AND PHYSICAL Xavi Oleary [place] 1955 REFERRING PHYSICIAN: Self CHIEF COMPLAINT: Consult (colonoscopy/) HPI: The patient is a 67 year old male referred for endoscopy. He was found to have tubular adenomaby colonoscopy in 2011. Xavi denies blood in stools, denies abdominal pain, and denies changes in bowel habits. He notes occasional blood on toilet paper. He notes loose stools with diary products. The patient notes no colon cancer in immediate family. The patient has had previous colonoscopy in 2017 - hyperplastic polyp found. Patient has multiple medical problems. He has poorly controlled diabetes as demonstrated by persistently elevated HgbA1c. He has hypertension, ALBAN, obesity and cardiac disease. Cardiac workup - ECHO EF 65% Nuclear stress test - area of diminished cardiomyocardial perfusion/tracer uptake A cardiac catheterization was recommended. Patient is pending follow up with cardiology to go over this. PAST MEDICAL HISTORY Diagnosis Date Alcohol abuse 03/05/2012 CAD (coronary artery disease), squaxin coronary artery 03/05/2012 COVID-19 04/24/2022 Hypertension Hypertrophy of prostate without urinary obstruction and other lower urinary tract symptoms (LUTS) 07/28/2007 Left knee pain Marijuana use Nocturnal hypoxia 10/06/2017 Obesity (BMI 30-39.9) Obstructive sleep apnea 10/06/2017 [facility] Other and unspecified hyperlipidemia Stented coronary artery 03/08/2012 Tubular adenoma of colon 08/03/2012 Type II or unspecified type diabetes mellitus without mention of complication, not stated as uncontrolled 09/05/2007 Unstable angina (HCC) 07/28/2013 PAST SURGICAL HISTORY Procedure Laterality Date COLONOSCOPY FLX DX W/COLLJ SPEC WHEN PFRMD 08/03/2012 Colonoscopy COLONOSCOPY FLX DX W/COLLJ SPEC WHEN PFRMD 12/16/2016 Colonoscopy mac LEFT HEART CATH,PERCUTANEOUS 07/31/2013 Cardiac cath, L heart LEFT HEART CATH,PERCUTANEOUS 07/23/2015 Cardiac cath, L heart PAST SURGICAL HISTORY OF 1968 circumcision PAST SURGICAL HISTORY OF Left 1968 eye surgery left eye only PAST SURGICAL HISTORY OF 03/24/04 Umbilical hernia repair TONSILLECTOMY & ADENOIDECTOMY <AGE 10 8 TRANSCATH STENT INIT VESSEL,PERCUT 03/07/2012 Transcath stent init vessel percut Current Outpatient Medications Medication Sig empagliflozin (JARDIANCE) 25 mg tablet Take 1 tablet by mouth once daily. Take 1 tablet once daily in the morning metoprolol tartrate, short acting, (LOPRESSOR) 25 mg tablet Take 1 tablet by mouth twice daily. Fenofibrate (LOFIBRA) 160 mg tablet Take 1 tablet by mouth once daily. sildenafil (VIAGRA) 50 mg tablet Take 1 tablet by mouth as needed. Take 1/2 hour before sexual activity, as directed for e.d. metFORMIN (GLUCOPHAGE) 500 mg tablet Take 2 tablets by mouth twice daily with meals. . albuterol HFA (PROVENTIL HFA, VENTOLIN HFA) 90 mcg/actuation inhaler Inhale 2 Puffs as instructed every 6 hours as needed for wheezing/shortness of breath. rosuvastatin (CRESTOR) 40 mg tablet Take 1 tablet by mouth daily at bedtime. For cholesterol. lisinopril (ZESTRIL, PRINIVIL) 10 mg tablet Take 1 tablet by mouth once daily. tamsulosin (FLOMAX) 0.4 mg Take 1 capsule by mouth once daily. nitroglycerin sublingual (NITROQUICK) 0.4 mg SL tablet Dissolve 1 tablet under the tongue as neededfor chest pain. ranolazine ER (RANEXA) 500 mg 12 hr tablet Take 1 tablet by mouth twice daily. CPAP Settings 5 - 15 cm H2O, suitable mask per pt preference, chin strap, head gear, humidity, tubing, lifetime supplies. G47.33 Obstructive Sleep Apnea aspirin, enteric coated (ECOTRIN LOW STRENGTH) 81 mg EC tablet Take 1 tablet by mouth once daily. ALLERGIES: Patient has no known allergies. PERSONAL HISTORY: Social History Tobacco Use Smoking status: Never Smokeless tobacco: Never Vaping Use Vaping Use: Never used Substance Use Topics Alcohol use: Not Currently Comment: does not drink alcohol routinely Drug use: Not Currently Types: Marijuana Comment: not very often, less then weekly FAMILY HISTORY Problem Relation Age of Onset Heart Father of [place] approximately age 40s COPD Mother Diabetes Mother Hypertension Mother Arthritis Brother Diabetes Sister The review of systems data was entered by the nurse and reviewed by pr Nursing Notes: Peter Ling LPN 08/05/2022 2:18 PM Signed REVIEW OF SYSTEMS: General: The patient notes fatigue, denies weight loss, denies weight gain, denies feeling hot, andnotes feelings of cold. Eyes: The patient denies glaucoma, notes eye injury/surgery, wears glasses or contacts. Ear/Nose/Throat: The patient denies allergies, denies hayfever, notes ear infections, and notes bloody noses. Cardiovascular: The patient notes chest pain, notes heart disease, notes high blood pressure,notes cardiac stent, denies prior heart attack, denies irregular heart beat, notes high cholesterol, denies poor circulation, denies heart failure, other cardiac issues, notes claudication, denies cold feet, denies peripheral arterial stent. Respiratory: The patient denies tuberculosis, notes pneumonia, notes frequent cough, denies pulmonary embolism, notes shortness of breath, and notes coughing up blood. Gastrointestinal: The patient denies difficulty swallowing, denies acid reflux, denies ulcers, notes vomiting, denies jaundice/hepatitis, denies gallbladder problems, denies black or tarry stools, notes hemorrhoids, notes bleeding from rectum, denies diverticulitis, denies constipation, notes diarrhea, notes loss of stool control, and notes hernias. Kidney/Bladder: The patient denies kidney stones, denies urine infections, and denies bloody urine. Skin: The patient denies a history of skin cancer, denies bleeding/changing moles, and denies a history of skin rash. Neurologic: The patient denies a history of epilepsy/convulsions, notes headaches, denies head/spinal injuries, and denies stroke/TIA. Psychiatric: The patient denies psychiatric medications, notes depression, and denies voices, notessubstance abuse. Endocrine: The patient denies thyroid disorders, notes diabetes, and denies hormonal problems. Hematologic: The patient denies a history of bruising, notes bleeding, and denies anemia, denies blood clots. Infections: The patient notes a history of measles and mumps, denies rheumatic fever, and denies sexually transmitted diseases. Musculoskeletal: The patient denies back pain/injury, notes back problems, notes sciatica, denies knee/foot trouble, denies arthritis, or denies gout. When was patient's last Mammogram screening? N/A Last Colonoscopy: 2016 Peter Ling LPN PHYSICAL EXAMINATION: General: The patient is 67 year old male, well nourished, well hydrated in no acute distress. The patient is oriented to time, place, and person. VITALS: Blood pressure 104/60, pulse 87, temperature 36.8 C (98.3 F), height 170.2 cm (5' 7), weight 93.4 kg (206 lb), SpO2 96 %. Body mass index is 32.26 kg/m . Head: Normal cephalic, atraumatic Eyes: pupils are equally round, sclera are clear/anicteric Neck is supple with no tracheal deviation Respiratory: Normal respiratory excursion and pattern. Abdominal exam: benign Extremities: no clubbing, cyanosis or edema. Neuro: non focal Psych: normal mood IMPRESSION: history of colon polyp PLAN: I have discussed the above with the patient. I have offered colonoscopy , possible biopsies I have explained the procedure to the patient. I have counseled the patient as to the risks of the procedure, including but not limited to: infection, bleeding, injury to any intrabdominal organs such as liver/spleen, perforation of the GI tract,inability to complete the procedure, complications of anesthesia, etc. - the patient understands. The patient wishes to proceed. I have answered all questions to the patient s satisfaction and the patient has no further questions. Diagnoses: (Z86.010) History of colonic polyps (primary encounter diagnosis) Madelin Blanc MD documented in [facility] encounterPar[facility]12[facility]22 Miscellaneous Notes* Telephone Encounter - Malia Arndt LPN - 09/16/2022 4:23 PM EST Patient calling had missed call, aware rx x 2 were sent to pharmacy for him, per notes below. * Telephone Encounter - Gerda Hsieh LPN - 09/16/2022 4:19 PM EST done Gerda Hsieh LPN * Telephone Encounter - Liat Emery APRN.BRAKE MACHINE OPERATOR - 09/16/2022 4:00 PM EST The following approved medication requests have been transmitted electronically. Requested Prescriptions Signed Prescriptions Disp Refills metoprolol tartrate, short acting, (LOPRESSOR) 25 mg tablet 60 tablet 1 Sig: Take 1 tablet by mouth twice daily. Authorizing Provider: LIAT EMERY peg 3350-electrolytes (COLYTE) 240-22.72-6.72 -5.84 gram solution 4000 mL 0 Sig: Take 4,000 mL by mouth one time only for 1 dose. Authorizing Provider: LIAT EMERY APRN.CNP * Telephone Encounter - Celso Espinal Pss - 09/16/2022 3:37 PM EST Patient has been identified by name and date of : Yes Last office visit in this department: 05/11/2022 RX INSTRUCTIONS: Patient states he will need the bowel prep for colonoscopy on 09/23 sent to this pharmacy as well. Patient aware RX will be sent to pharmacy. No need to notify patient. Patient phones requesting refills as follows: Requested Prescriptions Pending Prescriptions Disp Refills metoprolol tartrate, short acting, (LOPRESSOR) 25 mg tablet 60 tablet 1 Sig: Take 1 tablet by mouth twice daily. Please review and advise. Celso Espinal Pss documented in this encounterPar[facility]12-06-2022 Miscellaneous Notes* Telephone Encounter - Ese Bailey LPN - 09/01/2022 1:38 PM EST Last office visit: 05/11/22 Next appointment scheduled: 09/25/22 Last labs: 02/13/22 * Telephone Encounter - Christie Williamson Pss - 09/01/2022 1:35 PM EST Patient has been identified by name and date of : Yes Requested Prescriptions Pending Prescriptions Disp Refills lisinopril (ZESTRIL, PRINIVIL) 10 mg tablet 90 tablet 1 Sig: Take 1 tablet by mouth once daily. nitroglycerin sublingual (NITROQUICK) 0.4 mg SL tablet 25 tablet 0 Sig: Dissolve 1 tablet under the tongue as needed for chest pain. RX INSTRUCTIONS: Patient aware RX will be sent to pharmacy. No need to notify patient. Christie Williamson Pss documented in this encounterPar[facility]11-18-2022 Miscellaneous Notes* Telephone Encounter - Camryn Portillo RN - 08/14/2022 4:02 PM EST Phone call from patient. Advised of message below. He verbalized understanding. * Telephone Encounter - Yadira Neal - 08/14/2022 2:20 PM EST Attempted to reach patient to make aware that the 09/[address] Barakat is okay for procedure. Voicemail not set up Will attempt later Yadira Neal Automotive Machinist Apprentice * Telephone Encounter - Yadira Neal - 08/14/2022 2:18 PM EST Images from the original note were not included. Per Dr Blanc does not need formal clearance. Date will be okay as long as she can review his note prior Madelin Blanc MD You 23 minutes ago (3:25 PM) No, I don't need formal clearance - I can read Dr. Barakat's note and determine if OK, thanks * Telephone Encounter - Kaela Zuluaga RN - 08/14/2022 1:27 PM EST Images from the original note were not included. Madelin Blanc MD You 6 minutes ago (1:21 PM) Yes, he can contact [facility] for this, thanks Kaela Zuluaga RN * Telephone Encounter - Kaela Zuluaga RN - 08/14/2022 12:54 PM EST Xavi called. He states that he will be seeing Dr. Barakat on 09/10/2022 for cardiac clearance of his colonoscopy, which is scheduled for 09/23/2022. Xavi would like to know if that is okay with Dr. Blanc of if he needs to reschedule the colonoscopy to a later date. I advised that I believed it would be okay, but I would double check with Dr. Blanc. Kaela Zuluaga, RN documented in this encounterPar[facility]11-09-2022 Miscellaneous Notes* Telephone Encounter - Yadira Neal - 08/05/2022 3:49 PM EST Images from the original note were not included. Madelin Blanc MD You 23 minutes ago (3:25 PM) No, I don't need formal clearance - I can read Dr. Barakat's note and determine if OK, thanks * Telephone Encounter - Yadira Neal - 08/05/2022 3:20 PM EST 09/23/2022 colon asc Per [place] wants patient to have colonoscopy after he sees Dr. Barakat on 09/10. Dr. Blanc are you wanting clearance from Dr. Barakat prior to [facility] Please advise Yadira Neal Automotive Machinist Apprentice * Telephone Encounter - Shefali Arias - 08/03/2022 4:10 PM EST Patient called wanting to rescheduled his colonoscopy screening that was cancelled in April 2022 due to add[place] COVID. Please assist patient with scheduling/plan of care. documented in this encounterPar[facility]10-28-2022 Miscellaneous Notes* Telephone Encounter - Christie Taylor - 07/24/2022 3:02 PM EDT Patient has been identified by name and date of : Yes Requested Prescriptions Pending Prescriptions Disp Refills empagliflozin (JARDIANCE) 25 mg tablet 90 tablet 1 Sig: Take 1 tablet by mouth once daily. Take 1 tablet once daily in the morning RX INSTRUCTIONS: patient only has enough medication for today and tomorrow please send PAULINE. Patient aware RX will be sent to pharmacy. No need to notify patient. Christie Williamson Pss documented in this encounterPar[facility]10-14-2022 Miscellaneous Notes* Telephone Encounter - Johanny Palomo LPN - 07/10/2022 2:02 PM EDT Patient has been identified by name and date of : Yes Patient phones for refill(s): Requested Prescriptions Pending Prescriptions Disp Refills metoprolol tartrate, short acting, (LOPRESSOR) 25 mg tablet 60 tablet 1 Sig: Take 1 tablet by mouth twice daily. Date of last office visit in primary care: 05/11/2022 6 month follow-up: 09/25/2022 Last 2 Encounter Wt Readings: Date: Wt: 05/11/2022 88.4 kg (194 lb 12.8 oz) 03/26/2022 88.5 kg (195 lb) Previous labs/tests for medication: Blood Pressure: BUN (mg/dL) Date Value 02/13/2022 28 11/20/2020 14 Sodium (mmol/L) Date Value 02/13/2022 138 11/20/2020 142 Last 1 Encounter BP Readings: Date: BP: 05/11/2022 102/80 Please advise. Thank you. Johanny Palomo LPN * Telephone Encounter - Reba Ybarra Pss - 07/10/2022 12:56 PM EDT Patient has been identified by name and date of : Yes Last office visit in this department: 05/11/2022 RX INSTRUCTIONS: Patient aware RX will be sent to pharmacy. No need to notify patient. Patient phones requesting refills as follows: Requested Prescriptions Pending Prescriptions Disp Refills metoprolol tartrate, short acting, (LOPRESSOR) 25 mg tablet 60 tablet 1 Sig: Take 1 tablet by mouth twice daily. Please review and advise. Reba Ybarra Pss documented in this encounterPar[facility]10-03-2022 Miscellaneous Notes* Telephone Encounter - Clementina Hopkins Pss - 06/29/2022 9:13 AM EDT [facility] Patient has been identified by name and date of : Yes Patient aware RX will be sent to pharmacy. No need to notify patient. Patient phones for refill(s): Requested Prescriptions Pending Prescriptions Disp Refills Fenofibrate (LOFIBRA) 160 mg tablet 90 tablet 3 Sig: Take 1 tablet by mouth once daily. sildenafil (VIAGRA) 50 mg tablet 5 tablet 5 Sig: Take 1 tablet by mouth as needed. Take 1/2 hour before sexual activity, as directed for e.d. metFORMIN (GLUCOPHAGE) 500 mg tablet 120 tablet 5 Sig: Take 2 tablets by mouth twice daily with meals. . Date of last office visit : 05/11/2022 Date of next office visit : 07/10/2022 Last 2 Encounter Wt Readings: Date: Wt: 05/11/2022 88.4 kg (194 lb 12.8 oz) 03/26/2022 88.5 kg (195 lb) Please advise. Clementina Hopkins Pss documented in this encounterPar[facility]08-15-2022 History of Present illness Narrative* Grant Krause MD - 05/11/2022 2:23 PM EDT This note was created using NoteWriter. Subjective Xaiv Cabello is a 67 year old male. He continued to have intermittent involuntary tremors ofhis jaw. He had no tremors of the head, hands, or legs. He informed me he was being scheduled to have a coronary stent done. He was asking about a follow up steroid injection for his knee. Review of Systems Constitutional: Negative. Respiratory: Negative. Cardiovascular: Negative. Neurological: Negative for dizziness, tremors, seizures, syncope and headaches. ACTIVE PROBLEM LIST Mixed Hyperlipidemia Diabetes Mellitus Type 2, Controlled, Without Complications (Hcc) Cad (Coronary Artery Disease), [place] Coronary Artery Stented Coronary Artery Benign Prostatic Hyperplasia Without Lower Urinary Tract Symptoms Marijuana Use Essential Hypertension Male Erectile Dysfunction, Unspecified Tubular Adenoma of Colon Obstructive Sleep Apnea Nocturnal Hypoxia Bronchitis With Bronchospasm Erectile Dysfunction Obesity, Class I, Bmi 30-34.9 Tinnitus Current Outpatient Medications Medication Sig metoprolol tartrate, short acting, (LOPRESSOR) 25 mg tablet Take 1 tablet by mouth twice daily. sildenafil (VIAGRA) 50 mg tablet Take 1 tablet by mouth as needed. Take 1/2 hour before sexual activity, as directed for e.d. empagliflozin (JARDIANCE) 25 mg tablet Take 1 tablet by mouth once daily. Take 1 tablet once daily in the morning albuterol HFA (PROVENTIL HFA, VENTOLIN HFA) 90 mcg/actuation inhaler Inhale 2 Puffs as instructed every 6 hours as needed for wheezing/shortness of breath. rosuvastatin (CRESTOR) 40 mg tablet Take 1 tablet by mouth daily at bedtime. For cholesterol. lisinopril (ZESTRIL, PRINIVIL) 10 mg tablet Take 1 tablet by mouth once daily. metFORMIN (GLUCOPHAGE) 500 mg tablet Take 2 tablets by mouth twice daily with meals. . tamsulosin (FLOMAX) 0.4 mg Take 1 capsule by mouth once daily. nitroglycerin sublingual (NITROQUICK) 0.4 mg SL tablet Dissolve 1 tablet under the tongue as neededfor chest pain. Fenofibrate (LOFIBRA) 160 mg tablet Take 1 tablet by mouth once daily. ranolazine ER (RANEXA) 500 mg 12 hr tablet Take 1 tablet by mouth twice daily. CPAP Settings 5 - 15 cm H2O, suitable mask per pt preference, chin strap, head gear, humidity, tubing, lifetime supplies. G47.33 Obstructive Sleep Apnea aspirin, enteric coated (ECOTRIN LOW STRENGTH) 81 mg EC tablet Take 1 tablet by mouth once daily. No current facility-administered medications for this visit. Objective BP 102/80 (BP Site: Left Arm, BP Position: Sitting, BP Cuff Size: Large Adult) Pulse 80 Temp 36.7 C (98.1 F) (Temporal) Resp 16 Wt 88.4 kg (194 lb 12.8 oz) BMI 31.44 kg/m Physical Exam Constitutional: General: He is not in acute distress. Pulmonary: Effort: Pulmonary effort is normal. Neurological: General: No focal deficit present. Mental Status: He is alert and oriented to person, place, and time. Cranial Nerves: No dysarthria or facial asymmetry. Motor: No weakness, tremor or abnormal muscle tone. Gait: Gait normal. Comments: Oral dyskinesia involving jaw or masseter, intermittent. Assessment and Plan 1. Oral dyskinesia - ICD9: 333.82, ICD10: G24.4 (primary diagnosis) We discussed need for medication was not clear with intermittent symptoms. We agreed to consult neurology. - CONSULT TO NEUROLOGY 2. Coronary artery disease involving squaxin coronary artery of squaxin heart without angina pectoris- ICD9: 414.01, ICD10: I25.10 [facility]. 3. Stented coronary artery - ICD9: V45.82, ICD10: Z95.5 See HPI. 4. Primary osteoarthritis of left knee - ICD9: 715.16, ICD10: M17.12 He was advised to schedule with orthopedics. Grant Krause MD documented in this encounterPar[facility]08-05-2022 Miscellaneous Notes* Telephone Encounter - Shanae Tam RN - 05/01/2022 3:50 PM EDT Patient calls to request medication for tremor. Nurse triage completed. Protocol recommends see provider within 3 days. Patient requesting appointment with Dr. Krause. Scheduled for first available as after reviewing chart this is not a new complaint. Care advice and red flag symptoms reviewed with patient. Patient verbalizes understanding. Appointment will need rescheduled if provider not agre eable. Answer Assessment - Initial Assessment Questions 1. NAME of MEDICATION: Unknown. Something for Tremor. 2. QUESTION: Patient asking for provider to prescribe something for tremors. Patient reports once he had hand tremor while signing a receipt and 2 or 3 times all over body tremors. Patient vague withsymptoms, not currently having tremor, and not certain how long it lasts when he does have an episode. Denies chest pain, sob, palpitations, dizziness, weakness, headache, speech changes, vision changes, or unsteadiness. 3. PRESCRIBING HCP: NA 4. SYMPTOMS: Tremor 5. SEVERITY: once a hand tremor and 2 or 3 times body tremors. Patient unspecific. Protocols used: MEDICATION QUESTION [id number] documented in this encounterParma [facility]08-02-2022 Miscellaneous Notes* Telephone Encounter - Malia Arndt LPN - 04/28/2022 12:45 PM EDT Patient returned call and went over notes from Dr Krause with understanding. Patient said he is taking Paxlovid rx from the ER visit. He has contacted [facility] and left message of being COVID positive. May have to cancel stent placement procedure. * Telephone Encounter - Johanny Palomo LPN - 04/28/2022 10:47 AM EDT Attempted to call x2, vm has not been set up, will try again later. Johanny Palomo LPN * Telephone Encounter - Grant Krause MD - 04/28/2022 10:27 AM EDT Patient has risk factors of progressing to severe Covid infection, and may benefit from treatment with first line oral antivirals. Those not a candidate for oral medication may benefit from intravenous monoclonal antibody treatment. These are thru the Emergency use authorization (EUA) issued by the FDA for experimental treatment of Covid positive, non hospitalized, non oxygen needing patients, who have risk factors for severe disease. Treatment must be started within 5 days from the onset of symptoms for oral antivirals; or within 7days for infusions. A virtual visit or phone encounter is encouraged for discussion of treatment. Lab confirmation of Covid infection may be recommended. Prescription for oral medication or referral for intravenous treatment will be made. Implementation will depend on documentation of positive Covid test, meeting treatment criteria, timing limitations, and the availability of the treatment. * Telephone Encounter - Ese Bailey LPN - 04/27/2022 4:45 PM EDT Patient tested + at [facility]EL[facility] on around 04/24/22. Quarantine will be over for him on 05/01/2022. 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 documented in this encounterParma [facility]07-29-2022 Miscellaneous Notes* Telephone Encounter - Dania Steele LPN - 04/24/2022 10:14 AM EDT Patient has been identified by name and date of : Yes Patient phones for refill(s): Pending Prescriptions Disp Refills SILDENAFIL 50 MG TABLET 5 tablet 5 Sig: Take 1 tablet by mouth as needed. Take 1/2 hour before sexual activity, as directed for e.d. SILVIO: No Date of last office visit in primary care: 03/26/22 Last 2 Encounter Wt Readings: Date: Wt: 03/26/2022 88.5 kg (195 lb) 02/12/2022 84.4 kg (186 lb) Previous labs/tests for medication: Not applicable Please advise. Thank you. Dania Steele LPN * Telephone Encounter - Amanda Dallas - 04/24/2022 10:00 AM EDT Patient has been identified by name and date of : Yes Pending Prescriptions Disp Refills SILDENAFIL 50 MG TABLET 5 tablet 5 Sig: Take 1 tablet by mouth as needed. Take 1/2 hour before sexual activity, as directed for e.d. SILVIO: No RX INSTRUCTIONS: Patient aware RX will be sent to pharmacy. No need to notify patient. [facility] documented in this encounterPar[facility]07-11-2022 Miscellaneous Notes* Telephone Encounter - Rupali Villatoro RN - 04/06/2022 4:48 PM EDT Pt called and is notified of message results and instructions. Pt voices understanding. Rupali Villatoro RN * Telephone Encounter - Marino Weiss Ma - 04/06/2022 4:45 PM EDT Voicemail not set up yet - will try again later. * Telephone Encounter - Liat Emery APRN.CNP - 04/06/2022 4:29 PM EDT Ranolazine is prescribed by cardiology Liat Emery APRN.BOB * Telephone Encounter - Johanny Palomo LPN - 04/06/2022 2:37 PM EDT Patient has been identified by name and date of : Yes Patient phones for refill(s): Pending Prescriptions Disp Refills RANOLAZINE ER 500 MG TABLET,EXTENDED RELEASE,12 HR Sig: Take 1 tablet by mouth twice daily. SILVIO: No EMPAGLIFLOZIN 25 MG TABLET 90 tablet 1 Sig: Take 1 tablet by mouth once daily. Take 1 tablet once daily in the morning SILVIO: No Date of last office visit in primary care: 03/26/2022 Annual Medicare: 07/10/2022 Last 2 Encounter Wt Readings: Date: Wt: 03/26/2022 88.5 kg (195 lb) 02/12/2022 84.4 kg (186 lb) Previous labs/tests for medication: Diabetes: Hemoglobin A1C (%) Date Value 02/13/2022 6.7 06/27/2021 7.3 11/04/2020 8.2 Please advise. Thank you. Johanny Palomo LPN * Telephone Encounter - Clementina Taylor - 04/06/2022 12:57 PM EDT [facility] Patient has been identified by name and date of : Yes Patient aware RX will be sent to pharmacy. No need to notify patient. Patient phones for refill(s): Pending Prescriptions Disp Refills RANOLAZINE ER 500 MG TABLET,EXTENDED RELEASE,12 HR Sig: Take 1 tablet by mouth twice daily. SILVIO: No EMPAGLIFLOZIN 25 MG TABLET 90 tablet 1 Sig: Take 1 tablet by mouth once daily. Take 1 tablet once daily in the morning SILVIO: No Date of last office visit : 03/26/2022 Date of next office visit : 07/10/2022 Last 2 Encounter Wt Readings: Date: Wt: 03/26/2022 88.5 kg (195 lb) 02/12/2022 84.4 kg (186 lb) Please advise. Clementina Taylor documented in this encounterParma [facility]07-06-2022 Miscellaneous Notes* Telephone Encounter - Johanny Palomo LPN - 04/01/2022 1:17 PM EDT Patient has been identified by name and date of : Yes Patient phones for refill(s): Pending Prescriptions Disp Refills ALBUTEROL SULFATE HFA 90 MCG/ACTUATION AEROSOL INHALER 18 g 5 Sig: Inhale 2 Puffs as instructed every 6 hours as needed for wheezing/shortness of breath. SILVIO: No Date of last office visit in primary care: 03/26/2022 Annual Medicare: 07/10/2022 Last 2 Encounter Wt Readings: Date: Wt: 03/26/2022 88.5 kg (195 lb) 02/12/2022 84.4 kg (186 lb) Previous labs/tests for medication: Not applicable Please advise. Thank you. Johanny Palomo LPN * Telephone Encounter - Clementina Hopkins Pss - 04/01/2022 10:27 AM EDT [facility] Patient has been identified by name and date of : Yes Patient aware RX will be sent to pharmacy. No need to notify patient. Patient phones for refill(s): Pending Prescriptions Disp Refills ALBUTEROL SULFATE HFA 90 MCG/ACTUATION AEROSOL INHALER 18 g 5 Sig: Inhale 2 Puffs as instructed every 6 hours as needed for wheezing/shortness of breath. SILVIO: No Date of last office visit : Visit date not found Date of next office visit : Visit date not found Last 2 Encounter Wt Readings: Date: Wt: 03/26/2022 88.5 kg (195 lb) 02/12/2022 84.4 kg (186 lb) Please advise. Clementina Hopkins Pss documented in [facility] encounterPar[facility]22 Miscellaneous Notes* Telephone Encounter - Ivonne Presley LPN - 02/27/2022 10:10 AM EDT Patient has been identified by name and date of : Yes Patient phones for refill(s): Pending Prescriptions Disp Refills ROSUVASTATIN 40 MG TABLET 90 tablet 1 Sig: Take 1 tablet by mouth daily at bedtime. For cholesterol. SILVIO: No Date of last office visit in primary care: 02/12/22 Last 2 Encounter Wt Readings: Date: Wt: 02/12/2022 84.4 kg (186 lb) 11/28/2021 88.9 kg (196 lb) Previous labs/tests for medication: Not applicable Please advise. Thank you. Ivonne Presley LPN documented in this encounterPar[facility]05-24-2022 Miscellaneous Notes* Telephone Encounter - Johanny Palomo LPN - 02/17/2022 12:04 PM EDT Patient has been identified by name and date of : Yes Patient phones for refill(s): Pending Prescriptions Disp Refills METOPROLOL TARTRATE 25 MG TABLET 60 tablet 0 Sig: Take 1 tablet by mouth twice daily. SILVIO: No Date of last office visit in primary care: 02/12/2022 Appt: 03/26/2022 Last 2 Encounter Wt Readings: Date: Wt: 02/12/2022 84.4 kg (186 lb) 11/28/2021 88.9 kg (196 lb) Previous labs/tests for medication: Blood Pressure: BUN (mg/dL) Date Value 02/13/2022 28 11/20/2020 14 Sodium (mmol/L) Date Value 02/13/2022 138 11/20/2020 142 Last 1 Encounter BP Readings: Date: BP: 02/12/2022 85/53 Please advise. Thank you. Johanny Palomo LPN * Telephone Encounter - Amanda Del Real Radha - 02/17/2022 11:59 AM EDT Patient has been identified by name and date of : Yes Pending Prescriptions Disp Refills METOPROLOL TARTRATE 25 MG TABLET 60 tablet 0 Sig: Take 1 tablet by mouth twice daily. SILVIO: No RX INSTRUCTIONS: Patient aware RX will be sent to pharmacy. No need to notify patient. Amanda Hamathieu [facility] [place] documented in this encounterParma [facility]05-19-2022 History of Present illness Narrative* Angeles Davis RT(R) - 02/12/2022 4:10 PM EDT Radiology Service Progress Note PATIENT NAME: Xavi Cabello DATE OF SERVICE: February 12, 2022 TIME: 4:13 PM PATIENT IDENTITY VERIFICATION COMPLETED USING TWO (2) IDENTIFIERS: Name and Date of confirmedby patient verbally. FALL SCREENING: Has the patient had 2 falls in the last year or 1 fall with injury or currently using an Ambulatory Assistive Device (Walker, Cane, Wheelchair, Crutches, etc.)? No PATIENT GENDER DATA: Male PATIENT RELEVANT IMPLANT DATA REVIEWED: Yes RADIOLOGY DEPARTMENT: General X-ray: Exam(s) Completed: Chest X-Ray PERIPHERAL IV DATA: Not applicable SIGNED BY: RT Tru(R) February 12, 2022 4:13 PM documented in this encounterParma [facility]05-16-2022 Miscellaneous Notes* Telephone Encounter - Johanny Palomo LPN - 02/09/2022 3:33 PM EDT Patient has been identified by name and date of : Yes Patient phones for refill(s): Pending Prescriptions Disp Refills LISINOPRIL 10 MG TABLET 90 tablet 3 Sig: Take 1 tablet by mouth once daily. SILVIO: No Date of last office visit in primary care: 07/30/2021 [facility] ER follow-up: 02/12/2022 Last 2 Encounter Wt Readings: Date: Wt: 11/28/2021 88.9 kg (196 lb) 07/30/2021 92.1 kg (203 lb) Previous labs/tests for medication: Blood Pressure: BUN (mg/dL) Date Value 11/20/2020 14 Sodium (mmol/L) Date Value 11/20/2020 142 Last 1 Encounter BP Readings: Date: BP: 11/28/2021 116/76 Please advise. Thank you. Johanny Palomo LPN * Telephone Encounter - Lesa Ledesma - 02/09/2022 11:14 AM EDT Patient has been identified by name and date of : Yes Pending Prescriptions Disp Refills LISINOPRIL 10 MG TABLET 90 tablet 3 Sig: Take 1 tablet by mouth once daily. SILVIO: No RX INSTRUCTIONS: Patient aware RX will be sent to pharmacy. No need to notify patient. Lesa Ledesma documented in this encounterPar[facility]05-13-2022 Miscellaneous Notes* Telephone Encounter - Hillary Flores LPN - 02/06/2022 11:34 AM EDT Last appt with pcp 07/30/21. Next 02/12/22 ER follow up Next Routine is 03/26/22 * Telephone Encounter - Ivonne Taylor - 02/06/2022 10:49 AM EDT Patient wants to know if metformin script can be called in today. He will be completely out of medication today. Doesn't want to go the whole weekend without medication. * Telephone Encounter - Ivonne Taylor - 02/06/2022 10:49 AM EDT Patient has been identified by name and date of : Yes Pending Prescriptions Disp Refills METFORMIN 500 MG TABLET 120 tablet 0 Sig: Take 2 tablets by mouth twice daily with meals. . SILVIO: No RX INSTRUCTIONS: Patient aware RX will be sent to pharmacy. No need to notify patient. Ivonne Taylor documented in this encounterParma [facility]05-02-2022 History of Present illness Narrative* Nilda Kim PA-C - 01/26/2022 3:11 PM EDT Nilda Kim PA-C Department of Orthopaedics Orthopaedics [address] [facility] [address] Dept: [phone] Dept January 26, 2022 CHIEF COMPLAINT: New and Knee Pain of the Left Knee Mr. Xavi Cabello is a 67 year old male who presents with worsening left knee pain over the past 7 years. Pain today is a 3 out of 10 dull aching that is worse with activity. Pain today is anterior, he complains of a lot of locking or catching of the knee with overuse. He was walking several hours a day last summer [place] [employer] He is wanting to get back into his walking routine but is worried that his knee pain will hold him back. The patient has had a cardiac stent and is unable to take oral anti-inflammatories. He is a diabetic, his most recent hemoglobin A1c was 7.3. He tells me that his blood sugars are very well controlled. ASSESSMENT: M25.562, G89.29 Chronic pain of left knee (primary encounter diagnosis) M17.12 Primary osteoarthritis of left knee PLAN: He has medial compartment osteoarthritis. Considering that he is not a great candidate for anoral NSAID we discussed trying a corticosteroid injection today. Advised patient that he can have arepeat cortisone injection every 91 days. We also briefly discussed his surgical options. Mr. Xavi Cabello was advised as to contrast therapies and/or to take analgesics/anti-inflammatories as needed and all contraindications were reviewed. OBJECTIVE: Mr. Xavi Cabello is a pleasant 67 year old in no apparent distress. Gen:There were no vitals taken for this visit. nl development, obese, no deformities ENT: Normocephalic, normal hearing, moist mucosa CV: Pulses:DP/PT= 2+ and symmetric, capillary refill < 2 secs, no peripheral edema/varicosities Skin: no rash, bruising or lesions. Good turgor. Psych: cooperative and appropriate, alert and oriented x 3, good mood and affect. Musculoskeletal: KNEE EXAM: Left: Alignment: Fixed Varus Range of motion is lacking a few degrees secondary to tight hamstrings degrees in extension and 110 degrees of flexion. Extension La degrees Pain with ROM: No Effusion: Slight Tender to the palpation of Posterior Knee, Medial femoral condyle and Medial joint line Pain with patellar compression: No Stability: Anterior/Posterior stable and Varus/Valgus stable Hip Exam: flexion to 100+ degrees, full extension, internal/external rotation adequate and no pain with log roll Neurovascular Status: Sensation Intact, Moves foot and ankle up & down and 2+ dorsalis pedis Imaging: IMPRESSION: Degenerative changes as detailed in report. Small amount of left suprapatellar joint fluid. Care Companion: [facility] Transcribe Date/Time: Nov 28 2021 4:29P Dictated by : MALIA THOMAS MD This examination was interpreted and the report reviewed and electronically signed by: MALIA THOMAS MD on Nov 28 2021 4:32PM EST Results-Findings * * *Final Report* * * DATE OF EXAM: Nov 28 2021 4:26PM WOX [id number] - XR KNEE 4V AP/PA BOTH+LAT/ALANNA LT / PROCEDURE REASON: multiple diagnoses * * * * Physician Interpretation * * * * EXAMINATION: XR KNEE 4V AP/PA BOTH+LAT/ALANNA LT HISTORY: Chronic worsening left knee pain. Pain is anterior. Negative injury. TECHNIQUE: XR KNEE 4V AP/PA BOTH+LAT/ALANNA LT Laterality: LEFT Number of different views (projections): 4 M: XB_1 COMPARISON: Comparison is made to left knee dated 03 Feb 2013 RESULT: Standing frontal radiographs of the bilateral knees with bilateral PA flexion views, sunrise views and a lateral view of the left knee show no acute osseous or articular process. There is pancompartmental degenerative change present with periarticular osteophytosis and narrowing of the left medial tibiofemoral joint compartment. There is an associated mild varus deformity. There is left intercondylar and patellar spurring with preservation of the patellofemoral joint spaces. There is a small amount of left suprapatellar joint fluid. The soft tissues are unremarkable. Supporting Subjective Information Below: Past Surgical History: PAST SURGICAL HISTORY Procedure Laterality Date COLONOSCOPY FLX DX W/COLLJ SPEC WHEN PFRMD 08/03/2012 Colonoscopy COLONOSCOPY FLX DX W/COLLJ SPEC WHEN PFRMD 12/16/2016 Colonoscopy mac LEFT HEART CATH,PERCUTANEOUS 07/31/2013 Cardiac cath, L heart LEFT HEART CATH,PERCUTANEOUS 07/23/2015 Cardiac cath, L heart PAST SURGICAL HISTORY OF 1968 circumcision PAST SURGICAL HISTORY OF Left 1968 eye surgery left eye only PAST SURGICAL HISTORY OF 03/24/04 Umbilical hernia repair TONSILLECTOMY & ADENOIDECTOMY <AGE 10 8 TRANSCATH STENT INIT VESSEL,PERCUT 03/07/2012 Transcath stent init vessel percut Medications: Current Outpatient Medications Medication Sig sildenafil (VIAGRA) 50 mg tablet Take 1 tablet by mouth as needed. Take 1/2 hour before sexual activity, as directed for e.d. metFORMIN (GLUCOPHAGE) 500 mg tablet Take 2 tablets by mouth twice daily with meals. . metoprolol tartrate, short acting, (LOPRESSOR) 25 mg tablet Take 1 tablet by mouth twice daily. empagliflozin (JARDIANCE) 25 mg tablet Take 1 tablet by mouth once daily. Take 1 tablet once daily in the morning tamsulosin (FLOMAX) 0.4 mg Take 1 capsule by mouth once daily. nitroglycerin sublingual (NITROQUICK) 0.4 mg SL tablet Dissolve 1 tablet under the tongue as neededfor chest pain. rosuvastatin (CRESTOR) 40 mg tablet Take 1 tablet by mouth daily at bedtime. For cholesterol. Fenofibrate (LOFIBRA) 160 mg tablet Take 1 tablet by mouth once daily. lisinopril (ZESTRIL, PRINIVIL) 10 mg tablet Take 1 tablet by mouth once daily. albuterol HFA (PROVENTIL HFA, VENTOLIN HFA) 90 mcg/actuation inhaler Inhale 2 Puffs as instructed every 6 hours as needed for Wheezing/Shortness of Breath. ranolazine ER (RANEXA) 500 mg 12 hr tablet Take 1 tablet by mouth twice daily. CPAP Settings 5 - 15 cm H2O, suitable mask per pt preference, chin strap, head gear, humidity, tubing, lifetime supplies. G47.33 Obstructive Sleep Apnea aspirin, enteric coated (ECOTRIN LOW STRENGTH) 81 mg EC tablet Take 1 tablet by mouth once daily. No current facility-administered medications for this visit. Allergies: Patient has no known allergies. ROS: General (negative for fatigue, malaise, weight loss/gain) HEENT (negative for headache, earache, recent vision changes, sinus pain, sore throat) Respiratory (no recent shortness of breath, hemoptysis) CV (negative for chest tightness, palpitations) Musculoskeletal (see HPI) Psych (no depression, anxiety) This note was partially generated using [employer] voice recognition system, and there may be some incorrect words, spellings, and punctuation that were not noted in checking the note before saving. Nilda Kim PA-C * Gerda Ruiz - 01/26/2022 1:07 PM EDT AMB ROOMING INTAKE FLOWSHEET DATA Risk Screening Do you have concerns about personal safety or safety in the home?: No Pain Pain Level: 3 Pain Location: Knee-Left Description: Aching Duration Amount of Time: 2 Duration Units: Years Frequency: Intermittent Intervention/Comfort measure: Relaxation X-rays 11/28/2021 documented in this encounterPar[facility]04-18-2022 Miscellaneous Notes* Telephone Encounter - Hillary Flores LPN - 01/12/2022 2:50 PM EDT Pt last seen pcp 07/30/21. Next appt with pcp 03/26/22 * Telephone Encounter - Ashley Doe - 01/12/2022 2:45 PM EDT Patient has been identified by name and date of : Yes Pending Prescriptions Disp Refills SILDENAFIL 50 MG TABLET 5 tablet 5 Sig: Take 1 tablet by mouth as needed. Take 1/2 hour before sexual activity, as directed for e.d. SILVIO: No RX INSTRUCTIONS: Patient aware RX will be sent to pharmacy. No need to notify patient. Ashley Doe documented in this encounterParma [facility]04-06-2022 Miscellaneous Notes* Telephone Encounter - Emily Butt Pss - 12/31/2021 3:56 PM EDT Called and talked to patient and rescheduled his no show appointment to 03-26-22 Emily Butt Pss * Telephone Encounter - Liat Emery APRN.CNP - 12/31/2021 8:28 AM EDT He no showed appointment 12/26, will need to reschedule Liat Emery APRN.BOB * Telephone Encounter - Jovita Gonzales LPN - 12/30/2021 3:35 PM EDT See message below. Pt states he takes metformin 2 pills 2X daily, he says to his knowledge he has not missed any pills but he could have. Pt is also asking for a refill for metoprolol. WALT: 07/30/21 NOV: None scheduled Last Refill: 12/02/21 #60 0 refills Jovita Gonzales LPN * Telephone Encounter - Johanny Palomo LPN - 12/29/2021 4:04 PM EDT Attempted to call Patient, vm has not been set up. Last refill of Metformin 09/16/2020, x360 tablets, 3 refills. How is Patient taking? Is he taking? Johanny Stacia MALCOLM * Telephone Encounter - Christie Williamson Pss - 12/29/2021 2:51 PM EDT Patient has been identified by name and date of : Yes Pending Prescriptions Disp Refills METFORMIN 500 MG TABLET 360 tablet 3 Sig: Take 2 tablets by mouth twice daily with meals. . SILVIO: No RX INSTRUCTIONS: Patient aware RX will be sent to pharmacy. No need to notify patient. Christie Williamson Pss documented in this encounterParma [facility]03-30-2022 History of Present illness Narrative* Wendy Narvaez MA - 12/24/2021 8:53 AM EDT POPULATION HEALTH NAVIGATION OUTREACH Action/FYI Voice mail not set up. Letter mailed. Patient is on [employer] for the following HM care gaps: COLORECTAL CANCER SCREENING - Last done at [facility]. ADVANCE DIRECTIVE DISCUSSION - Scanned 09/04/13. MyChart Mailed letter 12/24/2021 MM Pt identified by name and : NO Outreach Outcome/Action Unable to reach patient: Phone number not valid / voicemail full Letter mailed Reason for Outreach Care Gap or Scheduling/Wellness visits Payer: Payor: [employer] MEDICARE / Plan: [employer] GOLD PLUS / Product Type: HMO / Care Gap Reviewed:: Colorectal Cancer Screening Reminder: Reminder note to check Health Maintenance for items below Health Maintenance items due: ADVANCE DIRECTIVE DISCUSSION Never done DIABETIC FOOT EXAM due on 11/04/2021 COLORECTAL CANCER SCREENING due on 12/16/2021 Message Sent to Practice: No Navigation Signature: Wendy Narvaez MA December 24, 2021 8:53 AM documented in this encounterParma [facility]03-04-2022 History of Present illness Narrative* Mala Ibarra RT(R) - 11/28/2021 4:00 PM EST Radiology Service Progress Note PATIENT NAME: Xavi Cabello DATE OF SERVICE: November 28, 2021 TIME: 4:10 PM PATIENT IDENTITY VERIFICATION COMPLETED USING TWO (2) IDENTIFIERS: Name and Date of confirmedby patient verbally. FALL SCREENING: Has the patient had 2 falls in the last year or 1 fall with injury or currently using an Ambulatory Assistive Device (Walker, Cane, Wheelchair, Crutches, etc.)? No PATIENT GENDER DATA: Male PATIENT RELEVANT IMPLANT DATA REVIEWED: Not Applicable RADIOLOGY DEPARTMENT: General X-ray: Exam(s) Completed: Lower Extremity X- Ray(s): Knee, AP / Lat / Tunne / Merchant Left and Wt. Bearing PERIPHERAL IV DATA: Not applicable SIGNED BY: RT Aaliyah(R) November 28, 2021 4:10 PM documented in this encounterParma [facility]11-20-2019 History of Past illness Narrative* Problem Noted Date Diagnosed Date Resolved Date Obesity, Class I, BMI 30-34.9 08/16/2019 10/08/2023 Lower urinary tract symptoms (LUTS) 12/11/2015 05/04/2018 Unstable angina 07/28/2013 09/06/2013 Overview: Atypical chest pain Negative cardiac enzymes EKG : Q wave in the inferior leads Myocardial perfusion imaging study: was done while in the OSH: it showed diminished tracer uptake in portions of the basal inferoseptal segments without significant change, following stress test there was also notation of diminished tracer uptake in portions of the brenna to mid inferior segments (findings suggestive of stress induced myocardial ischemia involving portions of the basal to mid inferior segments ). Risk factors : -Daily marijuana smoker. -DM type 2 ,last HbA1c 07/02/13 :6.8 -HTN -Hyperlipidemia : last fasting lipid panel 03/06/13 :Triglyceride 104, Cholesterol 197, HDL 55, LDL 121 -Hx of CAD S/P LHC in 03/07/12 :. Severe CAD of the mid circumflex. Chronically occluded right coronary artery. -Diet non compliant PLAN ---Telemetry ---BB ---ASA ---Statin ---Heparin gtt ---Serial cardiac enzymes LHC on 07/31/13 :The RCA is a large dominant vessel that is totally occluded in the proximal segment. The distal RCA, posterior descending artery, and posterior ventricular branches fill by robust [id number] collaterals from the LAD and LCx. Recommendations: 1) Continue aggressive risk factor modification 2) No need for intervention to RCA, given robust collaterals. Alcohol abuse 03/05/2012 03/16/2012 Overview: Drinks beer - three 24oz cans 2-3 times a day [facility] alcohol withdrawal protocol in house Advise to stop binge drinking Unstable angina 03/04/2012 03/15/2012 Overview: LHC ( 03/04/2012 ) at [facility] by Dr. Barakat LVEDP elevated LV; normal LV size, Wall motion, and sustolic function estimated VLVEF 65% LM : short/ angiographically normal LAD : diffuse MLI, mid to distal 10-25% stenosis LCx ; proximal 25 -50 % eccentric stenosis, distal diffuse MLI OM; large vessel: proximal 95-99% stenosis RCA : large/dominant vessel with proximal 100% occlusion and distal vessel filling from left to right collateral flow LHC at [facility] 03/07: 80% mid LCx stenosis, one BMS placed in mid LCx Chronically occluded RCA - ASA lifelong - Statin, BB - Plavix for at least 4 weeks - follow up with local farm machine operator as outpatient SUMMARY 03/04/2012 03/16/2012 Overview: 57 year old male with a PMH of DM, HTN, & HPL who was transferred from [facility] for further treatment of known 2 vessel CAD. Presented with chest pain, no acute change in EKG, no elevation in the cardiac enzymes, (+) nuclear stress test, and a LHC which showed OM1 95-99% stenosis and RCA 100% stenosis. Patient underwent LHC at [facility] on 6/11, which revealed severe stenosis in LCx, occluded RCA. One BMS is placed in LCx. Patient is on aspirin, Plavix, Toprol XL, Lipitor on discharge. Smoking 03/04/2012 03/04/2012 Hypertension 03/04/2012 10/06/2017 Hypertrophy of prostate with out urinary obstruction and other lower urinary tract symptoms (LUTS) 07/28/2007 03/04/2012 Obesity (BMI 30-39.9) 2020 documented as of this encounter (statuses as of 11/08/2023) [facility] History of Past illness Narrative* Problem Noted Date Diagnosed Date Resolved Date Obesity, Class I, BMI 30-34.9 08/16/2019 10/08/2023 Lower urinary tract symptoms (LUTS) 12/11/2015 05/04/2018 Unstable angina 07/28/2013 09/06/2013 Overview: Atypical chest pain Negative cardiac enzymes EKG : Q wave in the inferior leads Myocardial perfusion imaging study: was done while in the OSH: it showed diminished tracer uptake in portions of the basal inferoseptal segments without significant change, following stress test there was also notation of diminished tracer uptake in portions of the brenna to mid inferior segments (findings suggestive of stress induced myocardial ischemia involving portions of the basal to mid inferior segments ). Risk factors : -Daily marijuana smoker. -DM type 2 ,last HbA1c 07/02/13 :6.8 -HTN -Hyperlipidemia : last fasting lipid panel 03/06/13 :Triglyceride 104, Cholesterol 197, HDL 55, LDL 121 -Hx of CAD S/P LHC in 03/07/12 :. Severe CAD of the mid circumflex. Chronically occluded right coronary artery. -Diet non compliant PLAN ---Telemetry ---BB ---ASA ---Statin ---Heparin gtt ---Serial cardiac enzymes LHC on 07/31/13 :The RCA is a large dominant vessel that is totally occluded in the proximal segment. The distal RCA, posterior descending artery, and posterior ventricular branches fill by robust [id number]-[id number] collaterals from the LAD and LCx. Recommendations: 1) Continue aggressive risk factor modification 2) No need for intervention to RCA, given robust collaterals. Alcohol abuse 03/05/2012 03/16/2012 Overview: Drinks beer - three 24oz cans 2-3 times a day [facility] alcohol withdrawal protocol in house Advise to stop binge drinking Unstable angina 03/04/2012 03/15/2012 Overview: LHC ( 03/04/2012 ) at [facility] by Dr. Barakat LVEDP elevated LV; normal LV size, Wall motion, and sustolic function estimated VLVEF 65% LM : short/ angiographically normal LAD : diffuse MLI, mid to distal 10-25% stenosis LCx ; proximal 25 -50 % eccentric stenosis, distal diffuse MLI OM; large vessel: proximal 95-99% stenosis RCA : large/dominant vessel with proximal 100% occlusion and distal vessel filling from left to right collateral flow LHC at [facility] 03/07: 80% mid LCx stenosis, one BMS placed in mid LCx Chronically occluded RCA - ASA lifelong - Statin, BB - Plavix for at least 4 weeks - follow up with local farm machine operator as outpatient SUMMARY 03/04/2012 03/16/2012 Overview: 57 year old male with a PMH of DM, HTN, & HPL who was transferred from [facility] for further treatment of known 2 vessel CAD. Presented with chest pain, no acute change in EKG, no elevation in the cardiac enzymes, (+) nuclear stress test, and a LHC which showed OM1 95-99% stenosis and RCA 100% stenosis. Patient underwent LHC at [facility] on 03/07, which revealed severe stenosis in LCx, occluded RCA. One BMS is placed in LCx. Patient is on aspirin, Plavix, Toprol XL, Lipitor on discharge. Smoking 03/04/2012 03/04/2012 Hypertension 03/04/2012 10/06/2017 Hypertrophy of prostate with out urinary obstruction and other lower urinary tract symptoms (LUTS) 07/28/2007 03/04/2012 Obesity (BMI 30-39.9) 2020 documented as of this encounter (statuses as of 11/25/2023) [facility] illness Narrative* Problem Noted Date Diagnosed Date Resolved Date Obesity, Class I, BMI 30-34.9 08/16/2019 10/08/2023 Lower urinary tract symptoms (LUTS) 12/11/2015 05/04/2018 Unstable angina 07/28/2013 09/06/2013 Overview: Atypical chest pain Negative cardiac enzymes EKG : Q wave in the inferior leads Myocardial perfusion imaging study: was done while in the OSH: it showed diminished tracer uptake in portions of the basal inferoseptal segments without significant change, following stress test there was also notation of diminished tracer uptake in portions of the brenna to mid inferior segments (findings suggestive of stress induced myocardial ischemia involving portions of the basal to mid inferior segments ). Risk factors : -Daily marijuana smoker. -DM type 2 ,last HbA1c 07/02/13 :6.8 -HTN -Hyperlipidemia : last fasting lipid panel 03/06/13 :Triglyceride 104, Cholesterol 197, HDL 55, LDL 121 -Hx of CAD S/P LHC in 03/07/12 :. Severe CAD of the mid circumflex. Chronically occluded right coronary artery. -Diet non compliant PLAN ---Telemetry ---BB ---ASA ---Statin ---Heparin gtt ---Serial cardiac enzymes LHC on 07/31/13 :The RCA is a large dominant vessel that is totally occluded in the proximal segment. The distal RCA, posterior descending artery, and posterior ventricular branches fill by robust [id number] collaterals from the LAD and LCx. Recommendations: 1) Continue aggressive risk factor modification 2) No need for intervention to RCA, given robust collaterals. Alcohol abuse 03/05/2012 03/16/2012 Overview: Drinks beer - three 24oz cans 2-3 times a day [facility] alcohol withdrawal protocol in house Advise to stop binge drinking Unstable angina 03/04/2012 03/15/2012 Overview: [facility] ( 03/04/2012 ) at [place] by Dr. Barakat LVEDP elevated LV; normal LV size, Wall motion, and sustolic function estimated VLVEF 65% LM : short/ angiographically normal LAD : diffuse MLI, mid to distal 10-25% stenosis LCx ; proximal 25 -50 % eccentric stenosis, distal diffuse MLI OM; large vessel: proximal 95-99% stenosis RCA : large/dominant vessel with proximal 100% occlusion and distal vessel filling from left to right collateral flow LHC at [facility] 03/07: 80% mid LCx stenosis, one BMS placed in mid LCx Chronically occluded RCA - ASA lifelong - Statin, BB - Plavix for at least 4 weeks - follow up with local farm machine operator as outpatient SUMMARY 03/04/2012 03/16/2012 Overview: 57 year old male with a PMH of DM, HTN, & HPL who was transferred from [facility] for further treatment of known 2 vessel CAD. Presented with chest pain, no acute change in EKG, no elevation in the cardiac enzymes, (+) nuclear stress test, and a LHC which showed OM1 95-99% stenosis and RCA 100% stenosis. Patient underwent LHC at [facility] on 03/07, which revealed severe stenosis in LCx, occluded RCA. One BMS is placed in LCx. Patient is on aspirin, Plavix, Toprol XL, Lipitor on discharge. Smoking 03/04/2012 03/04/2012 Hypertension 03/04/2012 10/06/2017 Hypertrophy of prostate with out urinary obstruction and other lower urinary tract symptoms (LUTS) 07/28/2007 03/04/2012 Obesity (BMI 30-39.9) 2020 documented as of this encounter (statuses as of 12/09/2023) [facility]11-20-2019 History of Past illness Narrative* Problem Noted Date Diagnosed Date Resolved Date Obesity, Class I, BMI 30-34.9 08/16/2019 10/08/2023 Lower urinary tract symptoms (LUTS) 12/11/2015 05/04/2018 Unstable angina 07/28/2013 09/06/2013 Overview: Atypical chest pain Negative cardiac enzymes EKG : Q wave in the inferior leads Myocardial perfusion imaging study: was done while in the OSH: it showed diminished tracer uptake in portions of the basal inferoseptal segments without significant change, following stress test there was also notation of diminished tracer uptake in portions of the brenna to mid inferior segments (findings suggestive of stress induced myocardial ischemia involving portions of the basal to mid inferior segments ). Risk factors : -Daily marijuana smoker. -DM type 2 ,last HbA1c 07/02/13 :6.8 -HTN -Hyperlipidemia : last fasting lipid panel 03/06/13 :Triglyceride 104, Cholesterol 197, HDL 55, LDL 121 -Hx of CAD S/P LHC in 03/07/12 :. Severe CAD of the mid circumflex. Chronically occluded right coronary artery. -Diet non compliant PLAN ---Telemetry ---BB ---ASA ---Statin ---Heparin gtt ---Serial cardiac enzymes LHC on 07/31/13 :The RCA is a large dominant vessel that is totally occluded in the proximal segment. The distal RCA, posterior descending artery, and posterior ventricular branches fill by robust [id number]-[id number] collaterals from the LAD and LCx. Recommendations: 1) Continue aggressive risk factor modification 2) No need for intervention to RCA, given robust collaterals. Alcohol abuse 03/05/2012 03/16/2012 Overview: Drinks beer - three 24oz cans 2-3 times a day [facility] alcohol withdrawal protocol in house Advise to stop binge drinking Unstable angina 03/04/2012 03/15/2012 Overview: [facility] ( 03/04/2012 ) at [place] by Dr. Barakat LVEDP elevated LV; normal LV size, Wall motion, and sustolic function estimated VLVEF 65% LM : short/ angiographically normal LAD : diffuse MLI, mid to distal 10-25% stenosis LCx ; proximal 25 -50 % eccentric stenosis, distal diffuse MLI OM; large vessel: proximal 95-99% stenosis RCA : large/dominant vessel with proximal 100% occlusion and distal vessel filling from left to right collateral flow LHC at [facility] 03/07: 80% mid LCx stenosis, one BMS placed in mid LCx Chronically occluded RCA - ASA lifelong - Statin, BB - Plavix for at least 4 weeks - follow up with local farm machine operator as outpatient SUMMARY 03/04/2012 03/16/2012 Overview: 57 year old male with a PMH of DM, HTN, & HPL who was transferred from [facility] for further treatment of known 2 vessel CAD. Presented with chest pain, no acute change in EKG, no elevation in the cardiac enzymes, (+) nuclear stress test, and a LHC which showed OM1 95-99% stenosis and RCA 100% stenosis. Patient underwent LHC at [facility] on 03/07, which revealed severe stenosis in LCx, occluded RCA. One BMS is placed in LCx. Patient is on aspirin, Plavix, Toprol XL, Lipitor on discharge. Smoking 03/04/2012 03/04/2012 Hypertension 03/04/2012 10/06/2017 Hypertrophy of prostate with out urinary obstruction and other lower urinary tract symptoms (LUTS) 07/28/2007 03/04/2012 Obesity (BMI 30-39.9) 2020 documented as of this encounter (statuses as of 01/14/2024) [facility]03-16-2016 History of Past illness Narrative* Problem Noted Date Resolved Date Lower urinary tract symptoms (LUTS) 12/11/2015 05/04/2018 Unstable angina 07/28/2013 09/06/2013 Overview: Atypical chest pain Negative cardiac enzymes EKG : Q wave in the inferior leads Myocardial perfusion imaging study: was done while in the OSH: it showed diminished tracer uptake in portions of the basal inferoseptal segments without significant change, following stress test there was also notation of diminished tracer uptake in portions of the brenna to mid inferior segments (findings suggestive of stress induced myocardial ischemia involving portions of the basal to mid inferior segments ). Risk factors : -Daily marijuana smoker. -DM type 2 ,last HbA1c 07/02/13 :6.8 -HTN -Hyperlipidemia : last fasting lipid panel 03/06/13 :Triglyceride 104, Cholesterol 197, HDL 55, LDL 121 -Hx of CAD S/P LHC in 03/07/12 :. Severe CAD of the mid circumflex. Chronically occluded right coronary artery. -Diet non compliant PLAN ---Telemetry ---BB ---ASA ---Statin ---Heparin gtt ---Serial cardiac enzymes LHC on 07/31/13 :The RCA is a large dominant vessel that is totally occluded in the proximal segment. The distal RCA, posterior descending artery, and posterior ventricular branches fill by robust qovq-dh-pyzac collaterals from the LAD and LCx. Recommendations: 1) Continue aggressive risk factor modification 2) No need for intervention to RCA, given robust collaterals. Alcohol abuse 03/05/2012 03/16/2012 Overview: Drinks beer - three 24oz cans 2-3 times a day [facility] alcohol withdrawal protocol in house Advise to stop binge drinking Unstable angina 03/04/2012 03/15/2012 Overview: [facility] ( 03/04/2012 ) at [place] by Dr. Barakat LVEDP elevated LV; normal LV size, Wall motion, and sustolic function estimated VLVEF 65% LM : short/ angiographically normal LAD : diffuse MLI, mid to distal 10-25% stenosis LCx ; proximal 25 -50 % eccentric stenosis, distal diffuse MLI OM; large vessel: proximal 95-99% stenosis RCA : large/dominant vessel with proximal 100% occlusion and distal vessel filling from left to right collateral flow LHC at [facility] 03/07: 80% mid LCx stenosis, one BMS placed in mid LCx Chronically occluded RCA - ASA lifelong - Statin, BB - Plavix for at least 4 weeks - follow up with local farm machine operator as outpatient SUMMARY 03/04/2012 03/16/2012 Overview: 57 year old male with a PMH of DM, HTN, & HPL who was transferred from [facility] for further treatment of known 2 vessel CAD. Presented with chest pain, no acute change in EKG, no elevation in the cardiac enzymes, (+) nuclear stress test, and a LHC which showed OM1 95-99% stenosis and RCA 100% stenosis. Patient underwent LHC at [facility] on 03/07, which revealed severe stenosis in LCx, occluded RCA. One BMS is placed in LCx. Patient is on aspirin, Plavix, Toprol XL, Lipitor on discharge. Smoking 03/04/2012 03/04/2012 Hypertension 03/04/2012 10/06/2017 Hypertrophy of prostate with out urinary obstruction and other lower urinary tract symptoms (LUTS) 07/28/2007 03/04/2012 Obesity (BMI 30-39.9) 07/30/2021 documented as of this encounter (statuses as of 12/24/2021) [facility] History of Past illness Narrative* Problem Noted Date Resolved Date Lower urinary tract symptoms (LUTS) 12/11/2015 05/04/2018 Unstable angina 07/28/2013 09/06/2013 Overview: Atypical chest pain Negative cardiac enzymes EKG : Q wave in the inferior leads Myocardial perfusion imaging study: was done while in the OSH: it showed diminished tracer uptake in portions of the basal inferoseptal segments without significant change, following stress test there was also notation of diminished tracer uptake in portions of the brenna to mid inferior segments (findings suggestive of stress induced myocardial ischemia involving portions of the basal to mid inferior segments ). Risk factors : -Daily marijuana smoker. -DM type 2 ,last HbA1c 07/02/13 :6.8 -HTN -Hyperlipidemia : last fasting lipid panel 03/06/13 :Triglyceride 104, Cholesterol 197, HDL 55, LDL 121 -Hx of CAD S/P LHC in 03/07/12 :. Severe CAD of the mid circumflex. Chronically occluded right coronary artery. -Diet non compliant PLAN ---Telemetry ---BB ---ASA ---Statin ---Heparin gtt ---Serial cardiac enzymes LHC on 07/31/13 :The RCA is a large dominant vessel that is totally occluded in the proximal segment. The distal RCA, posterior descending artery, and posterior ventricular branches fill by robust rkqm-kq-gmshd collaterals from the LAD and LCx. Recommendations: 1) Continue aggressive risk factor modification 2) No need for intervention to RCA, given robust collaterals. Alcohol abuse 03/05/2012 03/16/2012 Overview: Drinks beer - three 24oz cans 2-3 times a day [facility] alcohol withdrawal protocol in house Advise to stop binge drinking Unstable angina 03/04/2012 03/15/2012 Overview: [facility] ( 03/04/2012 ) at [place] by Dr. Barakat LVEDP elevated LV; normal LV size, Wall motion, and sustolic function estimated VLVEF 65% LM : short/ angiographically normal LAD : diffuse MLI, mid to distal 10-25% stenosis LCx ; proximal 25 -50 % eccentric stenosis, distal diffuse MLI OM; large vessel: proximal 95-99% stenosis RCA : large/dominant vessel with proximal 100% occlusion and distal vessel filling from left to right collateral flow LHC at [facility] 03/07: 80% mid LCx stenosis, one BMS placed in mid LCx Chronically occluded RCA - ASA lifelong - Statin, BB - Plavix for at least 4 weeks - follow up with local farm machine operator as outpatient SUMMARY 03/04/2012 03/16/2012 Overview: 57 year old male with a PMH of DM, HTN, & HPL who was transferred from [facility] for further treatment of known 2 vessel CAD. Presented with chest pain, no acute change in EKG, no elevation in the cardiac enzymes, (+) nuclear stress test, and a LHC which showed OM1 95-99% stenosis and RCA 100% stenosis. Patient underwent LHC at [facility] on 03/07, which revealed severe stenosis in LCx, occluded RCA. One BMS is placed in LCx. Patient is on aspirin, Plavix, Toprol XL, Lipitor on discharge. Smoking 03/04/2012 03/04/2012 Hypertension 03/04/2012 10/06/2017 Hypertrophy of prostate with out urinary obstruction and other lower urinary tract symptoms (LUTS) 07/28/2007 03/04/2012 Obesity (BMI 30-39.9) 07/30/2021 documented as of this encounter (statuses as of 12/31/2021) [facility] History of Past illness Narrative* Problem Noted Date Resolved Date Lower urinary tract symptoms (LUTS) 12/11/2015 05/04/2018 Unstable angina 07/28/2013 09/06/2013 Overview: Atypical chest pain Negative cardiac enzymes EKG : Q wave in the inferior leads Myocardial perfusion imaging study: was done while in the OSH: it showed diminished tracer uptake in portions of the basal inferoseptal segments without significant change, following stress test there was also notation of diminished tracer uptake in portions of the brenna to mid inferior segments (findings suggestive of stress induced myocardial ischemia involving portions of the basal to mid inferior segments ). Risk factors : -Daily marijuana smoker. -DM type 2 ,last HbA1c 07/02/13 :6.8 -HTN -Hyperlipidemia : last fasting lipid panel 03/06/13 :Triglyceride 104, Cholesterol 197, HDL 55, LDL 121 -Hx of CAD S/P LHC in 03/07/12 :. Severe CAD of the mid circumflex. Chronically occluded right coronary artery. -Diet non compliant PLAN ---Telemetry ---BB ---ASA ---Statin ---Heparin gtt ---Serial cardiac enzymes LHC on 07/31/13 :The RCA is a large dominant vessel that is totally occluded in the proximal segment. The distal RCA, posterior descending artery, and posterior ventricular branches fill by robust bycz-yi-omeiw collaterals from the LAD and LCx. Recommendations: 1) Continue aggressive risk factor modification 2) No need for intervention to RCA, given robust collaterals. Alcohol abuse 03/05/2012 03/16/2012 Overview: Drinks beer - three 24oz cans 2-3 times a day [facility] alcohol withdrawal protocol in house Advise to stop binge drinking Unstable angina 03/04/2012 03/15/2012 Overview: LHC ( 03/04/2012 ) at [place] by Dr. Barakat LVEDP elevated LV; normal LV size, Wall motion, and sustolic function estimated VLVEF 65% LM : short/ angiographically normal LAD : diffuse MLI, mid to distal 10-25% stenosis LCx ; proximal 25 -50 % eccentric stenosis, distal diffuse MLI OM; large vessel: proximal 95-99% stenosis RCA : large/dominant vessel with proximal 100% occlusion and distal vessel filling from left to right collateral flow LHC at [facility] 03/07: 80% mid LCx stenosis, one BMS placed in mid LCx Chronically occluded RCA - ASA lifelong - Statin, BB - Plavix for at least 4 weeks - follow up with local farm machine operator as outpatient SUMMARY 03/04/2012 03/16/2012 Overview: 57 year old male with a PMH of DM, HTN, & HPL who was transferred from [facility] for further treatment of known 2 vessel CAD. Presented with chest pain, no acute change in EKG, no elevation in the cardiac enzymes, (+) nuclear stress test, and a LHC which showed OM1 95-99% stenosis and RCA 100% stenosis. Patient underwent LHC at [facility] on 03/07, which revealed severe stenosis in LCx, occluded RCA. One BMS is placed in LCx. Patient is on aspirin, Plavix, Toprol XL, Lipitor on discharge. Smoking 03/04/2012 03/04/2012 Hypertension 03/04/2012 10/06/2017 Hypertrophy of prostate with out urinary obstruction and other lower urinary tract symptoms (LUTS) 07/28/2007 03/04/2012 Obesity (BMI 30-39.9) 07/30/2021 documented as of this encounter (statuses as of 01/12/2022) [facility] History of Past illness Narrative* Problem Noted Date Resolved Date Lower urinary tract symptoms (LUTS) 12/11/2015 05/04/2018 Unstable angina 07/28/2013 09/06/2013 Overview: Atypical chest pain Negative cardiac enzymes EKG : Q wave in the inferior leads Myocardial perfusion imaging study: was done while in the OSH: it showed diminished tracer uptake in portions of the basal inferoseptal segments without significant change, following stress test there was also notation of diminished tracer uptake in portions of the brenna to mid inferior segments (findings suggestive of stress induced myocardial ischemia involving portions of the basal to mid inferior segments ). Risk factors : -Daily marijuana smoker. -DM type 2 ,last HbA1c 07/02/13 :6.8 -HTN -Hyperlipidemia : last fasting lipid panel 03/06/13 :Triglyceride 104, Cholesterol 197, HDL 55, LDL 121 -Hx of CAD S/P LHC in 03/07/12 :. Severe CAD of the mid circumflex. Chronically occluded right coronary artery. -Diet non compliant PLAN ---Telemetry ---BB ---ASA ---Statin ---Heparin gtt ---Serial cardiac enzymes LHC on 07/31/13 :The RCA is a large dominant vessel that is totally occluded in the proximal segment. The distal RCA, posterior descending artery, and posterior ventricular branches fill by robust [id number]-wtugp collaterals from the LAD and LCx. Recommendations: 1) Continue aggressive risk factor modification 2) No need for intervention to RCA, given robust collaterals. Alcohol abuse 03/05/2012 03/16/2012 Overview: Drinks beer - three 24oz cans 2-3 times a day [facility] alcohol withdrawal protocol in house Advise to stop binge drinking Unstable angina 03/04/2012 03/15/2012 Overview: LHC ( 03/04/2012 ) at [place] by Dr. [place]aw LVEDP elevated LV; normal LV size, Wall motion, and sustolic function estimated VLVEF 65% LM : short/ angiographically normal LAD : diffuse MLI, mid to distal 10-25% stenosis LCx ; proximal 25 -50 % eccentric stenosis, distal diffuse MLI OM; large vessel: proximal 95-99% stenosis RCA : large/dominant vessel with proximal 100% occlusion and distal vessel filling from left to right collateral flow LHC at [facility] 03/07: 80% mid LCx stenosis, one BMS placed in mid LCx Chronically occluded RCA - ASA lifelong - Statin, BB - Plavix for at least 4 weeks - follow up with local farm machine operator as outpatient SUMMARY 03/04/2012 03/16/2012 Overview: 57 year old male with a PMH of DM, HTN, & HPL who was transferred from [facility] for further treatment of known 2 vessel CAD. Presented with chest pain, no acute change in EKG, no elevation in the cardiac enzymes, (+) nuclear stress test, and a LHC which showed OM1 95-99% stenosis and RCA 100% stenosis. Patient underwent LHC at [facility] on 03/07, which revealed severe stenosis in LCx, occluded RCA. One BMS is placed in LCx. Patient is on aspirin, Plavix, Toprol XL, Lipitor on discharge. Smoking 03/04/2012 03/04/2012 Hypertension 03/04/2012 10/06/2017 Hypertrophy of prostate with out urinary obstruction and other lower urinary tract symptoms (LUTS) 07/28/2007 03/04/2012 Obesity (BMI 30-39.9) 07/30/2021 documented as of this encounter (statuses as of 01/26/2022) [facility] History of Past illness Narrative* Problem Noted Date Resolved Date Lower urinary tract symptoms (LUTS) 12/11/2015 05/04/2018 Unstable angina 07/28/2013 09/06/2013 Overview: Atypical chest pain Negative cardiac enzymes EKG : Q wave in the inferior leads Myocardial perfusion imaging study: was done while in the OSH: it showed diminished tracer uptake in portions of the basal inferoseptal segments without significant change, following stress test there was also notation of diminished tracer uptake in portions of the brenna to mid inferior segments (findings suggestive of stress induced myocardial ischemia involving portions of the basal to mid inferior segments ). Risk factors : -Daily marijuana smoker. -DM type 2 ,last HbA1c 07/02/13 :6.8 -HTN -Hyperlipidemia : last fasting lipid panel 03/06/13 :Triglyceride 104, Cholesterol 197, HDL 55, LDL 121 -Hx of CAD S/P LHC in 03/07/12 :. Severe CAD of the mid circumflex. Chronically occluded right coronary artery. -Diet non compliant PLAN ---Telemetry ---BB ---ASA ---Statin ---Heparin gtt ---Serial cardiac enzymes LHC on 07/31/13 :The RCA is a large dominant vessel that is totally occluded in the proximal segment. The distal RCA, posterior descending artery, and posterior ventricular branches fill by robust [id number]-[id number] collaterals from the LAD and LCx. Recommendations: 1) Continue aggressive risk factor modification 2) No need for intervention to RCA, given robust collaterals. Alcohol abuse 03/05/2012 03/16/2012 Overview: Drinks beer - three 24oz cans 2-3 times a day [facility] alcohol withdrawal protocol in house Advise to stop binge drinking Unstable angina 03/04/2012 03/15/2012 Overview: [facility] ( 03/04/2012 ) at [place] by Dr. Barakat LVEDP elevated LV; normal LV size, Wall motion, and sustolic function estimated VLVEF 65% LM : short/ angiographically normal LAD : diffuse MLI, mid to distal 10-25% stenosis LCx ; proximal 25 -50 % eccentric stenosis, distal diffuse MLI OM; large vessel: proximal 95-99% stenosis RCA : large/dominant vessel with proximal 100% occlusion and distal vessel filling from left to right collateral flow LHC at [facility] 03/07: 80% mid LCx stenosis, one BMS placed in mid LCx Chronically occluded RCA - ASA lifelong - Statin, BB - Plavix for at least 4 weeks - follow up with local farm machine operator as outpatient SUMMARY 03/04/2012 03/16/2012 Overview: 57 year old male with a PMH of DM, HTN, & HPL who was transferred from [facility] for further treatment of known 2 vessel CAD. Presented with chest pain, no acute change in EKG, no elevation in the cardiac enzymes, (+) nuclear stress test, and a LHC which showed OM1 95-99% stenosis and RCA 100% stenosis. Patient underwent LHC at [facility] on 03/07, which revealed severe stenosis in LCx, occluded RCA. One BMS is placed in LCx. Patient is on aspirin, Plavix, Toprol XL, Lipitor on discharge. Smoking 03/04/2012 03/04/2012 Hypertension 03/04/2012 10/06/2017 Hypertrophy of prostate with out urinary obstruction and other lower urinary tract symptoms (LUTS) 07/28/2007 03/04/2012 Obesity (BMI 30-39.9) 07/30/2021 documented as of this encounter (statuses as of 02/06/2022) [facility] History of Past illness Narrative* Problem Noted Date Resolved Date Lower urinary tract symptoms (LUTS) 12/11/2015 05/04/2018 Unstable angina 07/28/2013 09/06/2013 Overview: Atypical chest pain Negative cardiac enzymes EKG : Q wave in the inferior leads Myocardial perfusion imaging study: was done while in the OSH: it showed diminished tracer uptake in portions of the basal inferoseptal segments without significant change, following stress test there was also notation of diminished tracer uptake in portions of the brenna to mid inferior segments (findings suggestive of stress induced myocardial ischemia involving portions of the basal to mid inferior segments ). Risk factors : -Daily marijuana smoker. -DM type 2 ,last HbA1c 07/02/13 :6.8 -HTN -Hyperlipidemia : last fasting lipid panel 03/06/13 :Triglyceride 104, Cholesterol 197, HDL 55, LDL 121 -Hx of CAD S/P LHC in 03/07/12 :. Severe CAD of the mid circumflex. Chronically occluded right coronary artery. -Diet non compliant PLAN ---Telemetry ---BB ---ASA ---Statin ---Heparin gtt ---Serial cardiac enzymes LHC on 07/31/13 :The RCA is a large dominant vessel that is totally occluded in the proximal segment. The distal RCA, posterior descending artery, and posterior ventricular branches fill by robust [id number]-[id number] collaterals from the LAD and LCx. Recommendations: 1) Continue aggressive risk factor modification 2) No need for intervention to RCA, given robust collaterals. Alcohol abuse 03/05/2012 03/16/2012 Overview: Drinks beer - three 24oz cans 2-3 times a day [facility] alcohol withdrawal protocol in house Advise to stop binge drinking Unstable angina 03/04/2012 03/15/2012 Overview: LHC ( 03/04/2012 ) at [facility] by Dr. Barakat LVEDP elevated LV; normal LV size, Wall motion, and sustolic function estimated VLVEF 65% LM : short/ angiographically normal LAD : diffuse MLI, mid to distal 10-25% stenosis LCx ; proximal 25 -50 % eccentric stenosis, distal diffuse MLI OM; large vessel: proximal 95-99% stenosis RCA : large/dominant vessel with proximal 100% occlusion and distal vessel filling from left to right collateral flow LHC at [facility] 03/07: 80% mid LCx stenosis, one BMS placed in mid LCx Chronically occluded RCA - ASA lifelong - Statin, BB - Plavix for at least 4 weeks - follow up with local farm machine operator as outpatient SUMMARY 03/04/2012 03/16/2012 Overview: 57 year old male with a PMH of DM, HTN, & HPL who was transferred from [facility] for further treatment of known 2 vessel CAD. Presented with chest pain, no acute change in EKG, no elevation in the cardiac enzymes, (+) nuclear stress test, and a LHC which showed OM1 95-99% stenosis and RCA 100% stenosis. Patient underwent LHC at [facility] on 03/07, which revealed severe stenosis in LCx, occluded RCA. One BMS is placed in LCx. Patient is on aspirin, Plavix, Toprol XL, Lipitor on discharge. Smoking 03/04/2012 03/04/2012 Hypertension 03/04/2012 10/06/2017 Hypertrophy of prostate with out urinary obstruction and other lower urinary tract symptoms (LUTS) 07/28/2007 03/04/2012 Obesity (BMI 30-39.9) 07/30/2021 documented as of this encounter (statuses as of 02/10/2022) [facility]03-16[facility]2016 History of Past illness Narrative* Problem Noted Date Resolved Date Lower urinary tract symptoms (LUTS) 12/11/2015 05/04/2018 Unstable angina 07/28/2013 09/06/2013 Overview: Atypical chest pain Negative cardiac enzymes EKG : Q wave in the inferior leads Myocardial perfusion imaging study: was done while in the OSH: it showed diminished tracer uptake in portions of the basal inferoseptal segments without significant change, following stress test there was also notation of diminished tracer uptake in portions of the brenna to mid inferior segments (findings suggestive of stress induced myocardial ischemia involving portions of the basal to mid inferior segments ). Risk factors : -Daily marijuana smoker. -DM type 2 ,last HbA1c 07/02/13 :6.8 -HTN -Hyperlipidemia : last fasting lipid panel 03/06/13 :Triglyceride 104, Cholesterol 197, HDL 55, LDL 121 -Hx of CAD S/P LHC in 03/07/12 :. Severe CAD of the mid circumflex. Chronically occluded right coronary artery. -Diet non compliant PLAN ---Telemetry ---BB ---ASA ---Statin ---Heparin gtt ---Serial cardiac enzymes LHC on 07/31/13 :The RCA is a large dominant vessel that is totally occluded in the proximal segment. The distal RCA, posterior descending artery, and posterior ventricular branches fill by robust [id number] collaterals from the LAD and LCx. Recommendations: 1) Continue aggressive risk factor modification 2) No need for intervention to RCA, given robust collaterals. Alcohol abuse 03/05/2012 03/16/2012 Overview: Drinks beer - three 24oz cans 2-3 times a day [facility] alcohol withdrawal protocol in house Advise to stop binge drinking Unstable angina 03/04/2012 03/15/2012 Overview: C ( 03/04/2012 ) at [facility] by Dr. Barakat LVEDP elevated LV; normal LV size, Wall motion, and sustolic function estimated VLVEF 65% LM : short/ angiographically normal LAD : diffuse MLI, mid to distal 10-25% stenosis LCx ; proximal 25 -50 % eccentric stenosis, distal diffuse MLI OM; large vessel: proximal 95-99% stenosis RCA : large/dominant vessel with proximal 100% occlusion and distal vessel filling from left to right collateral flow LHC at [facility] 03/07: 80% mid LCx stenosis, one BMS placed in mid LCx Chronically occluded RCA - ASA lifelong - Statin, BB - Plavix for at least 4 weeks - follow up with local farm machine operator as outpatient SUMMARY 03/04/2012 03/16/2012 Overview: 57 year old male with a PMH of DM, HTN, & HPL who was transferred from [facility] for further treatment of known 2 vessel CAD. Presented with chest pain, no acute change in EKG, no elevation in the cardiac enzymes, (+) nuclear stress test, and a LHC which showed OM1 95-99% stenosis and RCA 100% stenosis. Patient underwent LHC at [facility] on 03/07, which revealed severe stenosis in LCx, occluded RCA. One BMS is placed in LCx. Patient is on aspirin, Plavix, Toprol XL, Lipitor on discharge. Smoking 03/04/2012 03/04/2012 Hypertension 03/04/2012 10/06/2017 Hypertrophy of prostate with out urinary obstruction and other lower urinary tract symptoms (LUTS) 07/28/2007 03/04/2012 Obesity (BMI 30-39.9) 07/30/2021 documented as of this encounter (statuses as of 02/13/2022) [facility] History of Past illness Narrative* Problem Noted Date Resolved Date Lower urinary tract symptoms (LUTS) 12/11/2015 05/04/2018 Unstable angina 07/28/2013 09/06/2013 Overview: Atypical chest pain Negative cardiac enzymes EKG : Q wave in the inferior leads Myocardial perfusion imaging study: was done while in the OSH: it showed diminished tracer uptake in portions of the basal inferoseptal segments without significant change, following stress test there was also notation of diminished tracer uptake in portions of the brenna to mid inferior segments (findings suggestive of stress induced myocardial ischemia involving portions of the basal to mid inferior segments ). Risk factors : -Daily marijuana smoker. -DM type 2 ,last HbA1c 07/02/13 :6.8 -HTN -Hyperlipidemia : last fasting lipid panel 03/06/13 :Triglyceride 104, Cholesterol 197, HDL 55, LDL 121 -Hx of CAD S/P LHC in 03/07/12 :. Severe CAD of the mid circumflex. Chronically occluded right coronary artery. -Diet non compliant PLAN ---Telemetry ---BB ---ASA ---Statin ---Heparin gtt ---Serial cardiac enzymes LHC on 07/31/13 :The RCA is a large dominant vessel that is totally occluded in the proximal segment. The distal RCA, posterior descending artery, and posterior ventricular branches fill by robust [id number] collaterals from the LAD and LCx. Recommendations: 1) Continue aggressive risk factor modification 2) No need for intervention to RCA, given robust collaterals. Alcohol abuse 03/05/2012 03/16/2012 Overview: Drinks beer - three 24oz cans 2-3 times a day [facility] alcohol withdrawal protocol in house Advise to stop binge drinking Unstable angina 03/04/2012 03/15/2012 Overview: LHC ( 03/04/2012 ) at [place] by Dr. Barakat LVEDP elevated LV; normal LV size, Wall motion, and sustolic function estimated VLVEF 65% LM : short/ angiographically normal LAD : diffuse MLI, mid to distal 10-25% stenosis LCx ; proximal 25 -50 % eccentric stenosis, distal diffuse MLI OM; large vessel: proximal 95-99% stenosis RCA : large/dominant vessel with proximal 100% occlusion and distal vessel filling from left to right collateral flow LHC at [facility] 03/07: 80% mid LCx stenosis, one BMS placed in mid LCx Chronically occluded RCA - ASA lifelong - Statin, BB - Plavix for at least 4 weeks - follow up with local farm machine operator as outpatient SUMMARY 03/04/2012 03/16/2012 Overview: 57 year old male with a PMH of DM, HTN, & HPL who was transferred from [facility] for further treatment of known 2 vessel CAD. Presented with chest pain, no acute change in EKG, no elevation in the cardiac enzymes, (+) nuclear stress test, and a LHC which showed OM1 95-99% stenosis and RCA 100% stenosis. Patient underwent LHC at [facility] on 03/07, which revealed severe stenosis in LCx, occluded RCA. One BMS is placed in LCx. Patient is on aspirin, Plavix, Toprol XL, Lipitor on discharge. Smoking 03/04/2012 03/04/2012 Hypertension 03/04/2012 10/06/2017 Hypertrophy of prostate with out urinary obstruction and other lower urinary tract symptoms (LUTS) 07/28/2007 03/04/2012 Obesity (BMI 30-39.9) 07/30/2021 documented as of this encounter (statuses as of 02/17/2022) [facility] History of Past illness Narrative* Problem Noted Date Resolved Date Lower urinary tract symptoms (LUTS) 12/11/2015 05/04/2018 Unstable angina 07/28/2013 09/06/2013 Overview: Atypical chest pain Negative cardiac enzymes EKG : Q wave in the inferior leads Myocardial perfusion imaging study: was done while in the OSH: it showed diminished tracer uptake in portions of the basal inferoseptal segments without significant change, following stress test there was also notation of diminished tracer uptake in portions of the brenna to mid inferior segments (findings suggestive of stress induced myocardial ischemia involving portions of the basal to mid inferior segments ). Risk factors : -Daily marijuana smoker. -DM type 2 ,last HbA1c 07/02/13 :6.8 -HTN -Hyperlipidemia : last fasting lipid panel 03/06/13 :Triglyceride 104, Cholesterol 197, HDL 55, LDL 121 -Hx of CAD S/P LHC in 03/07/12 :. Severe CAD of the mid circumflex. Chronically occluded right coronary artery. -Diet non compliant PLAN ---Telemetry ---BB ---ASA ---Statin ---Heparin gtt ---Serial cardiac enzymes LHC on 07/31/13 :The RCA is a large dominant vessel that is totally occluded in the proximal segment. The distal RCA, posterior descending artery, and posterior ventricular branches fill by robust [id number] collaterals from the LAD and LCx. Recommendations: 1) Continue aggressive risk factor modification 2) No need for intervention to RCA, given robust collaterals. Alcohol abuse 03/05/2012 03/16/2012 Overview: Drinks beer - three 24oz cans 2-3 times a day [facility] alcohol withdrawal protocol in house Advise to stop binge drinking Unstable angina 03/04/2012 03/15/2012 Overview: LHC ( 03/04/2012 ) at [place] by Dr. Barakat LVEDP elevated LV; normal LV size, Wall motion, and sustolic function estimated VLVEF 65% LM : short/ angiographically normal LAD : diffuse MLI, mid to distal 10-25% stenosis LCx ; proximal 25 -50 % eccentric stenosis, distal diffuse MLI OM; large vessel: proximal 95-99% stenosis RCA : large/dominant vessel with proximal 100% occlusion and distal vessel filling from left to right collateral flow LHC at [facility] 03/07: 80% mid LCx stenosis, one BMS placed in mid LCx Chronically occluded RCA - ASA lifelong - Statin, BB - Plavix for at least 4 weeks - follow up with local farm machine operator as outpatient SUMMARY 03/04/2012 03/16/2012 Overview: 57 year old male with a PMH of DM, HTN, & HPL who was transferred from [facility] for further treatment of known 2 vessel CAD. Presented with chest pain, no acute change in EKG, no elevation in the cardiac enzymes, (+) nuclear stress test, and a LHC which showed OM1 95-99% stenosis and RCA 100% stenosis. Patient underwent LHC at [facility] on 03/07, which revealed severe stenosis in LCx, occluded RCA. One BMS is placed in LCx. Patient is on aspirin, Plavix, Toprol XL, Lipitor on discharge. Smoking 03/04/2012 03/04/2012 Hypertension 03/04/2012 10/06/2017 Hypertrophy of prostate with out urinary obstruction and other lower urinary tract symptoms (LUTS) 07/28/2007 03/04/2012 Obesity (BMI 30-39.9) 07/30/2021 documented as of this encounter (statuses as of 02/27/2022) [facility] History of Past illness Narrative* Problem Noted Date Resolved Date Lower urinary tract symptoms (LUTS) 12/11/2015 05/04/2018 Unstable angina 07/28/2013 09/06/2013 Overview: Atypical chest pain Negative cardiac enzymes EKG : Q wave in the inferior leads Myocardial perfusion imaging study: was done while in the OSH: it showed diminished tracer uptake in portions of the basal inferoseptal segments without significant change, following stress test there was also notation of diminished tracer uptake in portions of the brenna to mid inferior segments (findings suggestive of stress induced myocardial ischemia involving portions of the basal to mid inferior segments ). Risk factors : -Daily marijuana smoker. -DM type 2 ,last HbA1c 07/02/13 :6.8 -HTN -Hyperlipidemia : last fasting lipid panel 03/06/13 :Triglyceride 104, Cholesterol 197, HDL 55, LDL 121 -Hx of CAD S/P LHC in 03/07/12 :. Severe CAD of the mid circumflex. Chronically occluded right coronary artery. -Diet non compliant PLAN ---Telemetry ---BB ---ASA ---Statin ---Heparin gtt ---Serial cardiac enzymes LHC on 07/31/13 :The RCA is a large dominant vessel that is totally occluded in the proximal segment. The distal RCA, posterior descending artery, and posterior ventricular branches fill by robust [id number] collaterals from the LAD and LCx. Recommendations: 1) Continue aggressive risk factor modification 2) No need for intervention to RCA, given robust collaterals. Alcohol abuse 03/05/2012 03/16/2012 Overview: Drinks beer - three 24oz cans 2-3 times a day [facility] alcohol withdrawal protocol in house Advise to stop binge drinking Unstable angina 03/04/2012 03/15/2012 Overview: C ( 03/04/2012 ) at [place] by Dr. Barakat LVEDP elevated LV; normal LV size, Wall motion, and sustolic function estimated VLVEF 65% LM : short/ angiographically normal LAD : diffuse MLI, mid to distal 10-25% stenosis LCx ; proximal 25 -50 % eccentric stenosis, distal diffuse MLI OM; large vessel: proximal 95-99% stenosis RCA : large/dominant vessel with proximal 100% occlusion and distal vessel filling from left to right collateral flow LHC at [facility] 03/07: 80% mid LCx stenosis, one BMS placed in mid LCx Chronically occluded RCA - ASA lifelong - Statin, BB - Plavix for at least 4 weeks - follow up with local farm machine operator as outpatient SUMMARY 03/04/2012 03/16/2012 Overview: 57 year old male with a PMH of DM, HTN, & HPL who was transferred from [facility] for further treatment of known 2 vessel CAD. Presented with chest pain, no acute change in EKG, no elevation in the cardiac enzymes, (+) nuclear stress test, and a LHC which showed OM1 95-99% stenosis and RCA 100% stenosis. Patient underwent LHC at [facility] on 03/07, which revealed severe stenosis in LCx, occluded RCA. One BMS is placed in LCx. Patient is on aspirin, Plavix, Toprol XL, Lipitor on discharge. Smoking 03/04/2012 03/04/2012 Hypertension 03/04/2012 10/06/2017 Hypertrophy of prostate with out urinary obstruction and other lower urinary tract symptoms (LUTS) 07/28/2007 03/04/2012 Obesity (BMI 30-39.9) 07/30/2021 documented as of this encounter (statuses as of 04/01/2022) [facility] History of Past illness Narrative* Problem Noted Date Resolved Date Lower urinary tract symptoms (LUTS) 12/11/2015 05/04/2018 Unstable angina 07/28/2013 09/06/2013 Overview: Atypical chest pain Negative cardiac enzymes EKG : Q wave in the inferior leads Myocardial perfusion imaging study: was done while in the OSH: it showed diminished tracer uptake in portions of the basal inferoseptal segments without significant change, following stress test there was also notation of diminished tracer uptake in portions of the brenna to mid inferior segments (findings suggestive of stress induced myocardial ischemia involving portions of the basal to mid inferior segments ). Risk factors : -Daily marijuana smoker. -DM type 2 ,last HbA1c 07/02/13 :6.8 -HTN -Hyperlipidemia : last fasting lipid panel 03/06/13 :Triglyceride 104, Cholesterol 197, HDL 55, LDL 121 -Hx of CAD S/P LHC in 03/07/12 :. Severe CAD of the mid circumflex. Chronically occluded right coronary artery. -Diet non compliant PLAN ---Telemetry ---BB ---ASA ---Statin ---Heparin gtt ---Serial cardiac enzymes LHC on 07/31/13 :The RCA is a large dominant vessel that is totally occluded in the proximal segment. The distal RCA, posterior descending artery, and posterior ventricular branches fill by robust [id number] collaterals from the LAD and LCx. Recommendations: 1) Continue aggressive risk factor modification 2) No need for intervention to RCA, given robust collaterals. Alcohol abuse 03/05/2012 03/16/2012 Overview: Drinks beer - three 24oz cans 2-3 times a day [facility] alcohol withdrawal protocol in house Advise to stop binge drinking Unstable angina 03/04/2012 03/15/2012 Overview: LHC ( 03/04/2012 ) at [place] by Dr. Barakat LVEDP elevated LV; normal LV size, Wall motion, and sustolic function estimated VLVEF 65% LM : short/ angiographically normal LAD : diffuse MLI, mid to distal 10-25% stenosis LCx ; proximal 25 -50 % eccentric stenosis, distal diffuse MLI OM; large vessel: proximal 95-99% stenosis RCA : large/dominant vessel with proximal 100% occlusion and distal vessel filling from left to right collateral flow LHC at [facility] 03/07: 80% mid LCx stenosis, one BMS placed in mid LCx Chronically occluded RCA - ASA lifelong - Statin, BB - Plavix for at least 4 weeks - follow up with local farm machine operator as outpatient SUMMARY 03/04/2012 03/16/2012 Overview: 57 year old male with a PMH of DM, HTN, & HPL who was transferred from [facility] for further treatment of known 2 vessel CAD. Presented with chest pain, no acute change in EKG, no elevation in the cardiac enzymes, (+) nuclear stress test, and a LHC which showed OM1 95-99% stenosis and RCA 100% stenosis. Patient underwent LHC at [facility] on 03/07, which revealed severe stenosis in LCx, occluded RCA. One BMS is placed in LCx. Patient is on aspirin, Plavix, Toprol XL, Lipitor on discharge. Smoking 03/04/2012 03/04/2012 Hypertension 03/04/2012 10/06/2017 Hypertrophy of prostate with out urinary obstruction and other lower urinary tract symptoms (LUTS) 07/28/2007 03/04/2012 Obesity (BMI 30-39.9) 07/30/2021 documented as of this encounter (statuses as of 04/06/2022) [facility] History of Past illness Narrative* Problem Noted Date Resolved Date Lower urinary tract symptoms (LUTS) 12/11/2015 05/04/2018 Unstable angina 07/28/2013 09/06/2013 Overview: Atypical chest pain Negative cardiac enzymes EKG : Q wave in the inferior leads Myocardial perfusion imaging study: was done while in the OSH: it showed diminished tracer uptake in portions of the basal inferoseptal segments without significant change, following stress test there was also notation of diminished tracer uptake in portions of the brenna to mid inferior segments (findings suggestive of stress induced myocardial ischemia involving portions of the basal to mid inferior segments ). Risk factors : -Daily marijuana smoker. -DM type 2 ,last HbA1c 07/02/13 :6.8 -HTN -Hyperlipidemia : last fasting lipid panel 03/06/13 :Triglyceride 104, Cholesterol 197, HDL 55, LDL 121 -Hx of CAD S/P LHC in 03/07/12 :. Severe CAD of the mid circumflex. Chronically occluded right coronary artery. -Diet non compliant PLAN ---Telemetry ---BB ---ASA ---Statin ---Heparin gtt ---Serial cardiac enzymes LHC on 07/31/13 :The RCA is a large dominant vessel that is totally occluded in the proximal segment. The distal RCA, posterior descending artery, and posterior ventricular branches fill by robust [id number] collaterals from the LAD and LCx. Recommendations: 1) Continue aggressive risk factor modification 2) No need for intervention to RCA, given robust collaterals. Alcohol abuse 03/05/2012 03/16/2012 Overview: Drinks beer - three 24oz cans 2-3 times a day [facility] alcohol withdrawal protocol in house Advise to stop binge drinking Unstable angina 03/04/2012 03/15/2012 Overview: LHC ( 03/04/2012 ) at [place] by Dr. Barakat LVEDP elevated LV; normal LV size, Wall motion, and sustolic function estimated VLVEF 65% LM : short/ angiographically normal LAD : diffuse MLI, mid to distal 10-25% stenosis LCx ; proximal 25 -50 % eccentric stenosis, distal diffuse MLI OM; large vessel: proximal 95-99% stenosis RCA : large/dominant vessel with proximal 100% occlusion and distal vessel filling from left to right collateral flow LHC at [facility] 03/07: 80% mid LCx stenosis, one BMS placed in mid LCx Chronically occluded RCA - ASA lifelong - Statin, BB - Plavix for at least 4 weeks - follow up with local farm machine operator as outpatient SUMMARY 03/04/2012 03/16/2012 Overview: 57 year old male with a PMH of DM, HTN, & HPL who was transferred from [facility] for further treatment of known 2 vessel CAD. Presented with chest pain, no acute change in EKG, no elevation in the cardiac enzymes, (+) nuclear stress test, and a LHC which showed OM1 95-99% stenosis and RCA 100% stenosis. Patient underwent LHC at [facility] on 03/07, which revealed severe stenosis in LCx, occluded RCA. One BMS is placed in LCx. Patient is on aspirin, Plavix, Toprol XL, Lipitor on discharge. Smoking 03/04/2012 03/04/2012 Hypertension 03/04/2012 10/06/2017 Hypertrophy of prostate with out urinary obstruction and other lower urinary tract symptoms (LUTS) 07/28/2007 03/04/2012 Obesity (BMI 30-39.9) 07/30/2021 documented as of this encounter (statuses as of 04/24/2022) [facility] History of Past illness Narrative* Problem Noted Date Resolved Date Lower urinary tract symptoms (LUTS) 12/11/2015 05/04/2018 Unstable angina 07/28/2013 09/06/2013 Overview: Atypical chest pain Negative cardiac enzymes EKG : Q wave in the inferior leads Myocardial perfusion imaging study: was done while in the OSH: it showed diminished tracer uptake in portions of the basal inferoseptal segments without significant change, following stress test there was also notation of diminished tracer uptake in portions of the brenna to mid inferior segments (findings suggestive of stress induced myocardial ischemia involving portions of the basal to mid inferior segments ). Risk factors : -Daily marijuana smoker. -DM type 2 ,last HbA1c 07/02/13 :6.8 -HTN -Hyperlipidemia : last fasting lipid panel 03/06/13 :Triglyceride 104, Cholesterol 197, HDL 55, LDL 121 -Hx of CAD S/P LHC in 03/07/12 :. Severe CAD of the mid circumflex. Chronically occluded right coronary artery. -Diet non compliant PLAN ---Telemetry ---BB ---ASA ---Statin ---Heparin gtt ---Serial cardiac enzymes LHC on 07/31/13 :The RCA is a large dominant vessel that is totally occluded in the proximal segment. The distal RCA, posterior descending artery, and posterior ventricular branches fill by robust [id number] collaterals from the LAD and LCx. Recommendations: 1) Continue aggressive risk factor modification 2) No need for intervention to RCA, given robust collaterals. Alcohol abuse 03/05/2012 03/16/2012 Overview: Drinks beer - three 24oz cans 2-3 times a day [facility] alcohol withdrawal protocol in house Advise to stop binge drinking Unstable angina 03/04/2012 03/15/2012 Overview: [facility] ( 03/04/2012 ) at [place] by Dr. Barakat LVEDP elevated LV; normal LV size, Wall motion, and sustolic function estimated VLVEF 65% LM : short/ angiographically normal LAD : diffuse MLI, mid to distal 10-25% stenosis LCx ; proximal 25 -50 % eccentric stenosis, distal diffuse MLI OM; large vessel: proximal 95-99% stenosis RCA : large/dominant vessel with proximal 100% occlusion and distal vessel filling from left to right collateral flow LHC at [facility] 03/07: 80% mid LCx stenosis, one BMS placed in mid LCx Chronically occluded RCA - ASA lifelong - Statin, BB - Plavix for at least 4 weeks - follow up with local farm machine operator as outpatient SUMMARY 03/04/2012 03/16/2012 Overview: 57 year old male with a PMH of DM, HTN, & HPL who was transferred from [facility] for further treatment of known 2 vessel CAD. Presented with chest pain, no acute change in EKG, no elevation in the cardiac enzymes, (+) nuclear stress test, and a LHC which showed OM1 95-99% stenosis and RCA 100% stenosis. Patient underwent LHC at [facility] on 03/07, which revealed severe stenosis in LCx, occluded RCA. One BMS is placed in LCx. Patient is on aspirin, Plavix, Toprol XL, Lipitor on discharge. Smoking 03/04/2012 03/04/2012 Hypertension 03/04/2012 10/06/2017 Hypertrophy of prostate with out urinary obstruction and other lower urinary tract symptoms (LUTS) 07/28/2007 03/04/2012 Obesity (BMI 30-39.9) 07/30/2021 documented as of this encounter (statuses as of 04/29/2022) [facility]03-16[facility]2016 History of Past illness Narrative* Problem Noted Date Resolved Date Lower urinary tract symptoms (LUTS) 12/11/2015 05/04/2018 Unstable angina 07/28/2013 09/06/2013 Overview: Atypical chest pain Negative cardiac enzymes EKG : Q wave in the inferior leads Myocardial perfusion imaging study: was done while in the OSH: it showed diminished tracer uptake in portions of the basal inferoseptal segments without significant change, following stress test there was also notation of diminished tracer uptake in portions of the brenna to mid inferior segments (findings suggestive of stress induced myocardial ischemia involving portions of the basal to mid inferior segments ). Risk factors : -Daily marijuana smoker. -DM type 2 ,last HbA1c 07/02/13 :6.8 -HTN -Hyperlipidemia : last fasting lipid panel 03/06/13 :Triglyceride 104, Cholesterol 197, HDL 55, LDL 121 -Hx of CAD S/P LHC in 03/07/12 :. Severe CAD of the mid circumflex. Chronically occluded right coronary artery. -Diet non compliant PLAN ---Telemetry ---BB ---ASA ---Statin ---Heparin gtt ---Serial cardiac enzymes LHC on 07/31/13 :The RCA is a large dominant vessel that is totally occluded in the proximal segment. The distal RCA, posterior descending artery, and posterior ventricular branches fill by robust [id number] collaterals from the LAD and LCx. Recommendations: 1) Continue aggressive risk factor modification 2) No need for intervention to RCA, given robust collaterals. Alcohol abuse 03/05/2012 03/16/2012 Overview: Drinks beer - three 24oz cans 2-3 times a day [facility] alcohol withdrawal protocol in house Advise to stop binge drinking Unstable angina 03/04/2012 03/15/2012 Overview: LHC ( 03/04/2012 ) at [place] by Dr. Barakat LVEDP elevated LV; normal LV size, Wall motion, and sustolic function estimated VLVEF 65% LM : short/ angiographically normal LAD : diffuse MLI, mid to distal 10-25% stenosis LCx ; proximal 25 -50 % eccentric stenosis, distal diffuse MLI OM; large vessel: proximal 95-99% stenosis RCA : large/dominant vessel with proximal 100% occlusion and distal vessel filling from left to right collateral flow LHC at [facility] 03/07: 80% mid LCx stenosis, one BMS placed in mid LCx Chronically occluded RCA - ASA lifelong - Statin, BB - Plavix for at least 4 weeks - follow up with local farm machine operator as outpatient SUMMARY 03/04/2012 03/16/2012 Overview: 57 year old male with a PMH of DM, HTN, & HPL who was transferred from [facility] for further treatment of known 2 vessel CAD. Presented with chest pain, no acute change in EKG, no elevation in the cardiac enzymes, (+) nuclear stress test, and a LHC which showed OM1 95-99% stenosis and RCA 100% stenosis. Patient underwent LHC at [facility] on 03/07, which revealed severe stenosis in LCx, occluded RCA. One BMS is placed in LCx. Patient is on aspirin, Plavix, Toprol XL, Lipitor on discharge. Smoking 03/04/2012 03/04/2012 Hypertension 03/04/2012 10/06/2017 Hypertrophy of prostate with out urinary obstruction and other lower urinary tract symptoms (LUTS) 07/28/2007 03/04/2012 Obesity (BMI 30-39.9) 07/30/2021 documented as of this encounter (statuses as of 05/01/2022) [facility] History of Past illness Narrative* Problem Noted Date Resolved Date Lower urinary tract symptoms (LUTS) 12/11/2015 05/04/2018 Unstable angina 07/28/2013 09/06/2013 Overview: Atypical chest pain Negative cardiac enzymes EKG : Q wave in the inferior leads Myocardial perfusion imaging study: was done while in the OSH: it showed diminished tracer uptake in portions of the basal inferoseptal segments without significant change, following stress test there was also notation of diminished tracer uptake in portions of the brenna to mid inferior segments (findings suggestive of stress induced myocardial ischemia involving portions of the basal to mid inferior segments ). Risk factors : -Daily marijuana smoker. -DM type 2 ,last HbA1c 07/02/13 :6.8 -HTN -Hyperlipidemia : last fasting lipid panel 03/06/13 :Triglyceride 104, Cholesterol 197, HDL 55, LDL 121 -Hx of CAD S/P LHC in 03/07/12 :. Severe CAD of the mid circumflex. Chronically occluded right coronary artery. -Diet non compliant PLAN ---Telemetry ---BB ---ASA ---Statin ---Heparin gtt ---Serial cardiac enzymes LHC on 07/31/13 :The RCA is a large dominant vessel that is totally occluded in the proximal segment. The distal RCA, posterior descending artery, and posterior ventricular branches fill by robust [id number] collaterals from the LAD and LCx. Recommendations: 1) Continue aggressive risk factor modification 2) No need for intervention to RCA, given robust collaterals. Alcohol abuse 03/05/2012 03/16/2012 Overview: Drinks beer - three 24oz cans 2-3 times a day [facility] alcohol withdrawal protocol in house Advise to stop binge drinking Unstable angina 03/04/2012 03/15/2012 Overview: LHC ( 03/04/2012 ) at [place] by Dr. Barakat LVEDP elevated LV; normal LV size, Wall motion, and sustolic function estimated VLVEF 65% LM : short/ angiographically normal LAD : diffuse MLI, mid to distal 10-25% stenosis LCx ; proximal 25 -50 % eccentric stenosis, distal diffuse MLI OM; large vessel: proximal 95-99% stenosis RCA : large/dominant vessel with proximal 100% occlusion and distal vessel filling from left to right collateral flow LHC at [facility] 03/07: 80% mid LCx stenosis, one BMS placed in mid LCx Chronically occluded RCA - ASA lifelong - Statin, BB - Plavix for at least 4 weeks - follow up with local farm machine operator as outpatient SUMMARY 03/04/2012 03/16/2012 Overview: 57 year old male with a PMH of DM, HTN, & HPL who was transferred from [facility] for further treatment of known 2 vessel CAD. Presented with chest pain, no acute change in EKG, no elevation in the cardiac enzymes, (+) nuclear stress test, and a LHC which showed OM1 95-99% stenosis and RCA 100% stenosis. Patient underwent LHC at [facility] on 03/07, which revealed severe stenosis in LCx, occluded RCA. One BMS is placed in LCx. Patient is on aspirin, Plavix, Toprol XL, Lipitor on discharge. Smoking 03/04/2012 03/04/2012 Hypertension 03/04/2012 10/06/2017 Hypertrophy of prostate with out urinary obstruction and other lower urinary tract symptoms (LUTS) 07/28/2007 03/04/2012 Obesity (BMI 30-39.9) 07/30/2021 documented as of this encounter (statuses as of 05/11/2022) [facility] History of Past illness Narrative* Problem Noted Date Resolved Date Lower urinary tract symptoms (LUTS) 12/11/2015 05/04/2018 Unstable angina 07/28/2013 09/06/2013 Overview: Atypical chest pain Negative cardiac enzymes EKG : Q wave in the inferior leads Myocardial perfusion imaging study: was done while in the OSH: it showed diminished tracer uptake in portions of the basal inferoseptal segments without significant change, following stress test there was also notation of diminished tracer uptake in portions of the brenna to mid inferior segments (findings suggestive of stress induced myocardial ischemia involving portions of the basal to mid inferior segments ). Risk factors : -Daily marijuana smoker. -DM type 2 ,last HbA1c 07/02/13 :6.8 -HTN -Hyperlipidemia : last fasting lipid panel 03/06/13 :Triglyceride 104, Cholesterol 197, HDL 55, LDL 121 -Hx of CAD S/P LHC in 03/07/12 :. Severe CAD of the mid circumflex. Chronically occluded right coronary artery. -Diet non compliant PLAN ---Telemetry ---BB ---ASA ---Statin ---Heparin gtt ---Serial cardiac enzymes LHC on 07/31/13 :The RCA is a large dominant vessel that is totally occluded in the proximal segment. The distal RCA, posterior descending artery, and posterior ventricular branches fill by robust [id number] collaterals from the LAD and LCx. Recommendations: 1) Continue aggressive risk factor modification 2) No need for intervention to RCA, given robust collaterals. Alcohol abuse 03/05/2012 03/16/2012 Overview: Drinks beer - three 24oz cans 2-3 times a day [facility] alcohol withdrawal protocol in house Advise to stop binge drinking Unstable angina 03/04/2012 03/15/2012 Overview: LHC ( 03/04/2012 ) at [place] by Dr. Barakat LVEDP elevated LV; normal LV size, Wall motion, and sustolic function estimated VLVEF 65% LM : short/ angiographically normal LAD : diffuse MLI, mid to distal 10-25% stenosis LCx ; proximal 25 -50 % eccentric stenosis, distal diffuse MLI OM; large vessel: proximal 95-99% stenosis RCA : large/dominant vessel with proximal 100% occlusion and distal vessel filling from left to right collateral flow LHC at [facility] 03/07: 80% mid LCx stenosis, one BMS placed in mid LCx Chronically occluded RCA - ASA lifelong - Statin, BB - Plavix for at least 4 weeks - follow up with local farm machine operator as outpatient SUMMARY 03/04/2012 03/16/2012 Overview: 57 year old male with a PMH of DM, HTN, & HPL who was transferred from [facility] for further treatment of known 2 vessel CAD. Presented with chest pain, no acute change in EKG, no elevation in the cardiac enzymes, (+) nuclear stress test, and a LHC which showed OM1 95-99% stenosis and RCA 100% stenosis. Patient underwent LHC at [facility] on 6/11, which revealed severe stenosis in LCx, occluded RCA. One BMS is placed in LCx. Patient is on aspirin, Plavix, Toprol XL, Lipitor on discharge. Smoking 03/04/2012 03/04/2012 Hypertension 03/04/2012 10/06/2017 Hypertrophy of prostate with out urinary obstruction and other lower urinary tract symptoms (LUTS) 07/28/2007 03/04/2012 Obesity (BMI 30-39.9) 07/30/2021 documented as of this encounter (statuses as of 06/29/2022) [facility] History of Past illness Narrative* Problem Noted Date Resolved Date Lower urinary tract symptoms (LUTS) 12/11/2015 05/04/2018 Unstable angina 07/28/2013 09/06/2013 Overview: Atypical chest pain Negative cardiac enzymes EKG : Q wave in the inferior leads Myocardial perfusion imaging study: was done while in the OSH: it showed diminished tracer uptake in portions of the basal inferoseptal segments without significant change, following stress test there was also notation of diminished tracer uptake in portions of the brenna to mid inferior segments (findings suggestive of stress induced myocardial ischemia involving portions of the basal to mid inferior segments ). Risk factors : -Daily marijuana smoker. -DM type 2 ,last HbA1c 07/02/13 :6.8 -HTN -Hyperlipidemia : last fasting lipid panel 03/06/13 :Triglyceride 104, Cholesterol 197, HDL 55, LDL 121 -Hx of CAD S/P LHC in 03/07/12 :. Severe CAD of the mid circumflex. Chronically occluded right coronary artery. -Diet non compliant PLAN ---Telemetry ---BB ---ASA ---Statin ---Heparin gtt ---Serial cardiac enzymes LHC on 07/31/13 :The RCA is a large dominant vessel that is totally occluded in the proximal segment. The distal RCA, posterior descending artery, and posterior ventricular branches fill by robust xcej-ie-eynjz collaterals from the LAD and LCx. Recommendations: 1) Continue aggressive risk factor modification 2) No need for intervention to RCA, given robust collaterals. Alcohol abuse 03/05/2012 03/16/2012 Overview: Drinks beer - three 24oz cans 2-3 times a day [facility] alcohol withdrawal protocol in house Advise to stop binge drinking Unstable angina 03/04/2012 03/15/2012 Overview: LHC ( 03/04/2012 ) at [place] by Dr. Barakta LVEDP elevated LV; normal LV size, Wall motion, and sustolic function estimated VLVEF 65% LM : short/ angiographically normal LAD : diffuse MLI, mid to distal 10-25% stenosis LCx ; proximal 25 -50 % eccentric stenosis, distal diffuse MLI OM; large vessel: proximal 95-99% stenosis RCA : large/dominant vessel with proximal 100% occlusion and distal vessel filling from left to right collateral flow LHC at [facility] 03/07: 80% mid LCx stenosis, one BMS placed in mid LCx Chronically occluded RCA - ASA lifelong - Statin, BB - Plavix for at least 4 weeks - follow up with local farm machine operator as outpatient SUMMARY 03/04/2012 03/16/2012 Overview: 57 year old male with a PMH of DM, HTN, & HPL who was transferred from [facility] for further treatment of known 2 vessel CAD. Presented with chest pain, no acute change in EKG, no elevation in the cardiac enzymes, (+) nuclear stress test, and a LHC which showed OM1 95-99% stenosis and RCA 100% stenosis. Patient underwent LHC at [facility] on 03/07, which revealed severe stenosis in LCx, occluded RCA. One BMS is placed in LCx. Patient is on aspirin, Plavix, Toprol XL, Lipitor on discharge. Smoking 03/04/2012 03/04/2012 Hypertension 03/04/2012 10/06/2017 Hypertrophy of prostate with out urinary obstruction and other lower urinary tract symptoms (LUTS) 07/28/2007 03/04/2012 Obesity (BMI 30-39.9) 07/30/2021 documented as of this encounter (statuses as of 07/10/2022) [facility] History of Past illness Narrative* Problem Noted Date Resolved Date Lower urinary tract symptoms (LUTS) 12/11/2015 05/04/2018 Unstable angina 07/28/2013 09/06/2013 Overview: Atypical chest pain Negative cardiac enzymes EKG : Q wave in the inferior leads Myocardial perfusion imaging study: was done while in the OSH: it showed diminished tracer uptake in portions of the basal inferoseptal segments without significant change, following stress test there was also notation of diminished tracer uptake in portions of the brenna to mid inferior segments (findings suggestive of stress induced myocardial ischemia involving portions of the basal to mid inferior segments ). Risk factors : -Daily marijuana smoker. -DM type 2 ,last HbA1c 07/02/13 :6.8 -HTN -Hyperlipidemia : last fasting lipid panel 03/06/13 :Triglyceride 104, Cholesterol 197, HDL 55, LDL 121 -Hx of CAD S/P LHC in 03/07/12 :. Severe CAD of the mid circumflex. Chronically occluded right coronary artery. -Diet non compliant PLAN ---Telemetry ---BB ---ASA ---Statin ---Heparin gtt ---Serial cardiac enzymes LHC on 07/31/13 :The RCA is a large dominant vessel that is totally occluded in the proximal segment. The distal RCA, posterior descending artery, and posterior ventricular branches fill by robust [id number] collaterals from the LAD and LCx. Recommendations: 1) Continue aggressive risk factor modification 2) No need for intervention to RCA, given robust collaterals. Alcohol abuse 03/05/2012 03/16/2012 Overview: Drinks beer - three 24oz cans 2-3 times a day [facility] alcohol withdrawal protocol in house Advise to stop binge drinking Unstable angina 03/04/2012 03/15/2012 Overview: C ( 03/04/2012 ) at [place] by Dr. Barakat LVEDP elevated LV; normal LV size, Wall motion, and sustolic function estimated VLVEF 65% LM : short/ angiographically normal LAD : diffuse MLI, mid to distal 10-25% stenosis LCx ; proximal 25 -50 % eccentric stenosis, distal diffuse MLI OM; large vessel: proximal 95-99% stenosis RCA : large/dominant vessel with proximal 100% occlusion and distal vessel filling from left to right collateral flow LHC at [facility] 03/07: 80% mid LCx stenosis, one BMS placed in mid LCx Chronically occluded RCA - ASA lifelong - Statin, BB - Plavix for at least 4 weeks - follow up with local farm machine operator as outpatient SUMMARY 03/04/2012 03/16/2012 Overview: 57 year old male with a PMH of DM, HTN, & HPL who was transferred from [facility] for further treatment of known 2 vessel CAD. Presented with chest pain, no acute change in EKG, no elevation in the cardiac enzymes, (+) nuclear stress test, and a LHC which showed OM1 95-99% stenosis and RCA 100% stenosis. Patient underwent LHC at [facility] on 03/07, which revealed severe stenosis in LCx, occluded RCA. One BMS is placed in LCx. Patient is on aspirin, Plavix, Toprol XL, Lipitor on discharge. Smoking 03/04/2012 03/04/2012 Hypertension 03/04/2012 10/06/2017 Hypertrophy of prostate with out urinary obstruction and other lower urinary tract symptoms (LUTS) 07/28/2007 03/04/2012 Obesity (BMI 30-39.9) 07/30/2021 documented as of this encounter (statuses as of 07/25/2022) [facility] History of Past illness Narrative* Problem Noted Date Resolved Date Lower urinary tract symptoms (LUTS) 12/11/2015 05/04/2018 Unstable angina 07/28/2013 09/06/2013 Overview: Atypical chest pain Negative cardiac enzymes EKG : Q wave in the inferior leads Myocardial perfusion imaging study: was done while in the OSH: it showed diminished tracer uptake in portions of the basal inferoseptal segments without significant change, following stress test there was also notation of diminished tracer uptake in portions of the brenna to mid inferior segments (findings suggestive of stress induced myocardial ischemia involving portions of the basal to mid inferior segments ). Risk factors : -Daily marijuana smoker. -DM type 2 ,last HbA1c 07/02/13 :6.8 -HTN -Hyperlipidemia : last fasting lipid panel 03/06/13 :Triglyceride 104, Cholesterol 197, HDL 55, LDL 121 -Hx of CAD S/P LHC in 03/07/12 :. Severe CAD of the mid circumflex. Chronically occluded right coronary artery. -Diet non compliant PLAN ---Telemetry ---BB ---ASA ---Statin ---Heparin gtt ---Serial cardiac enzymes LHC on 07/31/13 :The RCA is a large dominant vessel that is totally occluded in the proximal segment. The distal RCA, posterior descending artery, and posterior ventricular branches fill by robust [id number] collaterals from the LAD and LCx. Recommendations: 1) Continue aggressive risk factor modification 2) No need for intervention to RCA, given robust collaterals. Alcohol abuse 03/05/2012 03/16/2012 Overview: Drinks beer - three 24oz cans 2-3 times a day [facility] alcohol withdrawal protocol in house Advise to stop binge drinking Unstable angina 03/04/2012 03/15/2012 Overview: LHC ( 03/04/2012 ) at [place] by Dr. Barakat LVEDP elevated LV; normal LV size, Wall motion, and sustolic function estimated VLVEF 65% LM : short/ angiographically normal LAD : diffuse MLI, mid to distal 10-25% stenosis LCx ; proximal 25 -50 % eccentric stenosis, distal diffuse MLI OM; large vessel: proximal 95-99% stenosis RCA : large/dominant vessel with proximal 100% occlusion and distal vessel filling from left to right collateral flow LHC at [facility] 03/07: 80% mid LCx stenosis, one BMS placed in mid LCx Chronically occluded RCA - ASA lifelong - Statin, BB - Plavix for at least 4 weeks - follow up with local farm machine operator as outpatient SUMMARY 03/04/2012 03/16/2012 Overview: 57 year old male with a PMH of DM, HTN, & HPL who was transferred from [facility] for further treatment of known 2 vessel CAD. Presented with chest pain, no acute change in EKG, no elevation in the cardiac enzymes, (+) nuclear stress test, and a LHC which showed OM1 95-99% stenosis and RCA 100% stenosis. Patient underwent LHC at [facility] on 03/07, which revealed severe stenosis in LCx, occluded RCA. One BMS is placed in LCx. Patient is on aspirin, Plavix, Toprol XL, Lipitor on discharge. Smoking 03/04/2012 03/04/2012 Hypertension 03/04/2012 10/06/2017 Hypertrophy of prostate with out urinary obstruction and other lower urinary tract symptoms (LUTS) 07/28/2007 03/04/2012 Obesity (BMI 30-39.9) 07/30/2021 documented as of this encounter (statuses as of 08/17/2022) [facility] History of Past illness Narrative* Problem Noted Date Resolved Date Lower urinary tract symptoms (LUTS) 12/11/2015 05/04/2018 Unstable angina 07/28/2013 09/06/2013 Overview: Atypical chest pain Negative cardiac enzymes EKG : Q wave in the inferior leads Myocardial perfusion imaging study: was done while in the OSH: it showed diminished tracer uptake in portions of the basal inferoseptal segments without significant change, following stress test there was also notation of diminished tracer uptake in portions of the brenna to mid inferior segments (findings suggestive of stress induced myocardial ischemia involving portions of the basal to mid inferior segments ). Risk factors : -Daily marijuana smoker. -DM type 2 ,last HbA1c 07/02/13 :6.8 -HTN -Hyperlipidemia : last fasting lipid panel 03/06/13 :Triglyceride 104, Cholesterol 197, HDL 55, LDL 121 -Hx of CAD S/P LHC in 03/07/12 :. Severe CAD of the mid circumflex. Chronically occluded right coronary artery. -Diet non compliant PLAN ---Telemetry ---BB ---ASA ---Statin ---Heparin gtt ---Serial cardiac enzymes LHC on 07/31/13 :The RCA is a large dominant vessel that is totally occluded in the proximal segment. The distal RCA, posterior descending artery, and posterior ventricular branches fill by robust [id number]-rs-oxfid collaterals from the LAD and LCx. Recommendations: 1) Continue aggressive risk factor modification 2) No need for intervention to RCA, given robust collaterals. Alcohol abuse 03/05/2012 03/16/2012 Overview: Drinks beer - three 24oz cans 2-3 times a day [facility] alcohol withdrawal protocol in house Advise to stop binge drinking Unstable angina 03/04/2012 03/15/2012 Overview: LHC ( 03/04/2012 ) at [place] by Dr. Barakat LVEDP elevated LV; normal LV size, Wall motion, and sustolic function estimated VLVEF 65% LM : short/ angiographically normal LAD : diffuse MLI, mid to distal 10-25% stenosis LCx ; proximal 25 -50 % eccentric stenosis, distal diffuse MLI OM; large vessel: proximal 95-99% stenosis RCA : large/dominant vessel with proximal 100% occlusion and distal vessel filling from left to right collateral flow LHC at [facility] 03/07: 80% mid LCx stenosis, one BMS placed in mid LCx Chronically occluded RCA - ASA lifelong - Statin, BB - Plavix for at least 4 weeks - follow up with local farm machine operator as outpatient SUMMARY 03/04/2012 03/16/2012 Overview: 57 year old male with a PMH of DM, HTN, & HPL who was transferred from [facility] for further treatment of known 2 vessel CAD. Presented with chest pain, no acute change in EKG, no elevation in the cardiac enzymes, (+) nuclear stress test, and a LHC which showed OM1 95-99% stenosis and RCA 100% stenosis. Patient underwent LHC at [facility] on 03/07, which revealed severe stenosis in LCx, occluded RCA. One BMS is placed in LCx. Patient is on aspirin, Plavix, Toprol XL, Lipitor on discharge. Smoking 03/04/2012 03/04/2012 Hypertension 03/04/2012 10/06/2017 Hypertrophy of prostate with out urinary obstruction and other lower urinary tract symptoms (LUTS) 07/28/2007 03/04/2012 Obesity (BMI 30-39.9) 07/30/2021 documented as of this encounter (statuses as of 09/01/2022) [facility] History of Past illness Narrative* Problem Noted Date Resolved Date Lower urinary tract symptoms (LUTS) 12/11/2015 05/04/2018 Unstable angina 07/28/2013 09/06/2013 Overview: Atypical chest pain Negative cardiac enzymes EKG : Q wave in the inferior leads Myocardial perfusion imaging study: was done while in the OSH: it showed diminished tracer uptake in portions of the basal inferoseptal segments without significant change, following stress test there was also notation of diminished tracer uptake in portions of the brenna to mid inferior segments (findings suggestive of stress induced myocardial ischemia involving portions of the basal to mid inferior segments ). Risk factors : -Daily marijuana smoker. -DM type 2 ,last HbA1c 07/02/13 :6.8 -HTN -Hyperlipidemia : last fasting lipid panel 03/06/13 :Triglyceride 104, Cholesterol 197, HDL 55, LDL 121 -Hx of CAD S/P LHC in 03/07/12 :. Severe CAD of the mid circumflex. Chronically occluded right coronary artery. -Diet non compliant PLAN ---Telemetry ---BB ---ASA ---Statin ---Heparin gtt ---Serial cardiac enzymes LHC on 07/31/13 :The RCA is a large dominant vessel that is totally occluded in the proximal segment. The distal RCA, posterior descending artery, and posterior ventricular branches fill by robust [id number] collaterals from the LAD and LCx. Recommendations: 1) Continue aggressive risk factor modification 2) No need for intervention to RCA, given robust collaterals. Alcohol abuse 03/05/2012 03/16/2012 Overview: Drinks beer - three 24oz cans 2-3 times a day [facility] alcohol withdrawal protocol in house Advise to stop binge drinking Unstable angina 03/04/2012 03/15/2012 Overview: [facility] ( 03/04/2012 ) at [place] by Dr. Barakat LVEDP elevated LV; normal LV size, Wall motion, and sustolic function estimated VLVEF 65% LM : short/ angiographically normal LAD : diffuse MLI, mid to distal 10-25% stenosis LCx ; proximal 25 -50 % eccentric stenosis, distal diffuse MLI OM; large vessel: proximal 95-99% stenosis RCA : large/dominant vessel with proximal 100% occlusion and distal vessel filling from left to right collateral flow LHC at [facility] 03/07: 80% mid LCx stenosis, one BMS placed in mid LCx Chronically occluded RCA - ASA lifelong - Statin, BB - Plavix for at least 4 weeks - follow up with local farm machine operator as outpatient SUMMARY 03/04/2012 03/16/2012 Overview: 57 year old male with a PMH of DM, HTN, & HPL who was transferred from [facility] for further treatment of known 2 vessel CAD. Presented with chest pain, no acute change in EKG, no elevation in the cardiac enzymes, (+) nuclear stress test, and a LHC which showed OM1 95-99% stenosis and RCA 100% stenosis. Patient underwent LHC at [facility] on 03/07, which revealed severe stenosis in LCx, occluded RCA. One BMS is placed in LCx. Patient is on aspirin, Plavix, Toprol XL, Lipitor on discharge. Smoking 03/04/2012 03/04/2012 Hypertension 03/04/2012 10/06/2017 Hypertrophy of prostate with out urinary obstruction and other lower urinary tract symptoms (LUTS) 07/28/2007 03/04/2012 Obesity (BMI 30-39.9) 07/30/2021 documented as of this encounter (statuses as of 09/08/2022) [facility]2016 History of Past illness Narrative* Problem Noted Date Resolved Date Lower urinary tract symptoms (LUTS) 12/11/2015 05/04/2018 Unstable angina 07/28/2013 09/06/2013 Overview: Atypical chest pain Negative cardiac enzymes EKG : Q wave in the inferior leads Myocardial perfusion imaging study: was done while in the OSH: it showed diminished tracer uptake in portions of the basal inferoseptal segments without significant change, following stress test there was also notation of diminished tracer uptake in portions of the brenna to mid inferior segments (findings suggestive of stress induced myocardial ischemia involving portions of the basal to mid inferior segments ). Risk factors : -Daily marijuana smoker. -DM type 2 ,last HbA1c 07/02/13 :6.8 -HTN -Hyperlipidemia : last fasting lipid panel 03/06/13 :Triglyceride 104, Cholesterol 197, HDL 55, LDL 121 -Hx of CAD S/P LHC in 03/07/12 :. Severe CAD of the mid circumflex. Chronically occluded right coronary artery. -Diet non compliant PLAN ---Telemetry ---BB ---ASA ---Statin ---Heparin gtt ---Serial cardiac enzymes LHC on 07/31/13 :The RCA is a large dominant vessel that is totally occluded in the proximal segment. The distal RCA, posterior descending artery, and posterior ventricular branches fill by robust [id number] collaterals from the LAD and LCx. Recommendations: 1) Continue aggressive risk factor modification 2) No need for intervention to RCA, given robust collaterals. Alcohol abuse 03/05/2012 03/16/2012 Overview: Drinks beer - three 24oz cans 2-3 times a day [facility] alcohol withdrawal protocol in house Advise to stop binge drinking Unstable angina 03/04/2012 03/15/2012 Overview: LHC ( 03/04/2012 ) at [place] by Dr. Barakat LVEDP elevated LV; normal LV size, Wall motion, and sustolic function estimated VLVEF 65% LM : short/ angiographically normal LAD : diffuse MLI, mid to distal 10-25% stenosis LCx ; proximal 25 -50 % eccentric stenosis, distal diffuse MLI OM; large vessel: proximal 95-99% stenosis RCA : large/dominant vessel with proximal 100% occlusion and distal vessel filling from left to right collateral flow LHC at [facility] 03/07: 80% mid LCx stenosis, one BMS placed in mid LCx Chronically occluded RCA - ASA lifelong - Statin, BB - Plavix for at least 4 weeks - follow up with local farm machine operator as outpatient SUMMARY 03/04/2012 03/16/2012 Overview: 57 year old male with a PMH of DM, HTN, & HPL who was transferred from [facility] for further treatment of known 2 vessel CAD. Presented with chest pain, no acute change in EKG, no elevation in the cardiac enzymes, (+) nuclear stress test, and a LHC which showed OM1 95-99% stenosis and RCA 100% stenosis. Patient underwent LHC at [facility] on 03/07, which revealed severe stenosis in LCx, occluded RCA. One BMS is placed in LCx. Patient is on aspirin, Plavix, Toprol XL, Lipitor on discharge. Smoking 03/04/2012 03/04/2012 Hypertension 03/04/2012 10/06/2017 Hypertrophy of prostate with out urinary obstruction and other lower urinary tract symptoms (LUTS) 07/28/2007 03/04/2012 Obesity (BMI 30-39.9) 07/30/2021 documented as of this encounter (statuses as of 09/16/2022) [facility] History of Past illness Narrative* Problem Noted Date Resolved Date Lower urinary tract symptoms (LUTS) 12/11/2015 05/04/2018 Unstable angina 07/28/2013 09/06/2013 Overview: Atypical chest pain Negative cardiac enzymes EKG : Q wave in the inferior leads Myocardial perfusion imaging study: was done while in the OSH: it showed diminished tracer uptake in portions of the basal inferoseptal segments without significant change, following stress test there was also notation of diminished tracer uptake in portions of the brenna to mid inferior segments (findings suggestive of stress induced myocardial ischemia involving portions of the basal to mid inferior segments ). Risk factors : -Daily marijuana smoker. -DM type 2 ,last HbA1c 07/02/13 :6.8 -HTN -Hyperlipidemia : last fasting lipid panel 03/06/13 :Triglyceride 104, Cholesterol 197, HDL 55, LDL 121 -Hx of CAD S/P LHC in 03/07/12 :. Severe CAD of the mid circumflex. Chronically occluded right coronary artery. -Diet non compliant PLAN ---Telemetry ---BB ---ASA ---Statin ---Heparin gtt ---Serial cardiac enzymes LHC on 07/31/13 :The RCA is a large dominant vessel that is totally occluded in the proximal segment. The distal RCA, posterior descending artery, and posterior ventricular branches fill by robust [id number] collaterals from the LAD and LCx. Recommendations: 1) Continue aggressive risk factor modification 2) No need for intervention to RCA, given robust collaterals. Alcohol abuse 03/05/2012 03/16/2012 Overview: Drinks beer - three 24oz cans 2-3 times a day [facility] alcohol withdrawal protocol in house Advise to stop binge drinking Unstable angina 03/04/2012 03/15/2012 Overview: LHC ( 03/04/2012 ) at [place] by Dr. Barakat LVEDP elevated LV; normal LV size, Wall motion, and sustolic function estimated VLVEF 65% LM : short/ angiographically normal LAD : diffuse MLI, mid to distal 10-25% stenosis LCx ; proximal 25 -50 % eccentric stenosis, distal diffuse MLI OM; large vessel: proximal 95-99% stenosis RCA : large/dominant vessel with proximal 100% occlusion and distal vessel filling from left to right collateral flow LHC at [facility] 03/07: 80% mid LCx stenosis, one BMS placed in mid LCx Chronically occluded RCA - ASA lifelong - Statin, BB - Plavix for at least 4 weeks - follow up with local farm machine operator as outpatient SUMMARY 03/04/2012 03/16/2012 Overview: 57 year old male with a PMH of DM, HTN, & HPL who was transferred from [facility] for further treatment of known 2 vessel CAD. Presented with chest pain, no acute change in EKG, no elevation in the cardiac enzymes, (+) nuclear stress test, and a LHC which showed OM1 95-99% stenosis and RCA 100% stenosis. Patient underwent LHC at [facility] on 03/07, which revealed severe stenosis in LCx, occluded RCA. One BMS is placed in LCx. Patient is on aspirin, Plavix, Toprol XL, Lipitor on discharge. Smoking 03/04/2012 03/04/2012 Hypertension 03/04/2012 10/06/2017 Hypertrophy of prostate with out urinary obstruction and other lower urinary tract symptoms (LUTS) 07/28/2007 03/04/2012 Obesity (BMI 30-39.9) 07/30/2021 documented as of this encounter (statuses as of 10/02/2022) [facility] History of Past illness Narrative* Problem Noted Date Resolved Date Lower urinary tract symptoms (LUTS) 12/11/2015 05/04/2018 Unstable angina 07/28/2013 09/06/2013 Overview: Atypical chest pain Negative cardiac enzymes EKG : Q wave in the inferior leads Myocardial perfusion imaging study: was done while in the OSH: it showed diminished tracer uptake in portions of the basal inferoseptal segments without significant change, following stress test there was also notation of diminished tracer uptake in portions of the brenna to mid inferior segments (findings suggestive of stress induced myocardial ischemia involving portions of the basal to mid inferior segments ). Risk factors : -Daily marijuana smoker. -DM type 2 ,last HbA1c 07/02/13 :6.8 -HTN -Hyperlipidemia : last fasting lipid panel 03/06/13 :Triglyceride 104, Cholesterol 197, HDL 55, LDL 121 -Hx of CAD S/P LHC in 03/07/12 :. Severe CAD of the mid circumflex. Chronically occluded right coronary artery. -Diet non compliant PLAN ---Telemetry ---BB ---ASA ---Statin ---Heparin gtt ---Serial cardiac enzymes LHC on 07/31/13 :The RCA is a large dominant vessel that is totally occluded in the proximal segment. The distal RCA, posterior descending artery, and posterior ventricular branches fill by robust [id number] collaterals from the LAD and LCx. Recommendations: 1) Continue aggressive risk factor modification 2) No need for intervention to RCA, given robust collaterals. Alcohol abuse 03/05/2012 03/16/2012 Overview: Drinks beer - three 24oz cans 2-3 times a day [facility] alcohol withdrawal protocol in house Advise to stop binge drinking Unstable angina 03/04/2012 03/15/2012 Overview: LHC ( 03/04/2012 ) at [place] by Dr. Barakat LVEDP elevated LV; normal LV size, Wall motion, and sustolic function estimated VLVEF 65% LM : short/ angiographically normal LAD : diffuse MLI, mid to distal 10-25% stenosis LCx ; proximal 25 -50 % eccentric stenosis, distal diffuse MLI OM; large vessel: proximal 95-99% stenosis RCA : large/dominant vessel with proximal 100% occlusion and distal vessel filling from left to right collateral flow LHC at [facility] 03/07: 80% mid LCx stenosis, one BMS placed in mid LCx Chronically occluded RCA - ASA lifelong - Statin, BB - Plavix for at least 4 weeks - follow up with local farm machine operator as outpatient SUMMARY 03/04/2012 03/16/2012 Overview: 57 year old male with a PMH of DM, HTN, & HPL who was transferred from [facility] for further treatment of known 2 vessel CAD. Presented with chest pain, no acute change in EKG, no elevation in the cardiac enzymes, (+) nuclear stress test, and a LHC which showed OM1 95-99% stenosis and RCA 100% stenosis. Patient underwent LHC at [facility] on 03/07, which revealed severe stenosis in LCx, occluded RCA. One BMS is placed in LCx. Patient is on aspirin, Plavix, Toprol XL, Lipitor on discharge. Smoking 03/04/2012 03/04/2012 Hypertension 03/04/2012 10/06/2017 Hypertrophy of prostate with out urinary obstruction and other lower urinary tract symptoms (LUTS) 07/28/2007 03/04/2012 Obesity (BMI 30-39.9) 07/30/2021 documented as of this encounter (statuses as of 11/03/2022) [facility] History of Past illness Narrative* Problem Noted Date Resolved Date Lower urinary tract symptoms (LUTS) 12/11/2015 05/04/2018 Unstable angina 07/28/2013 09/06/2013 Overview: Atypical chest pain Negative cardiac enzymes EKG : Q wave in the inferior leads Myocardial perfusion imaging study: was done while in the OSH: it showed diminished tracer uptake in portions of the basal inferoseptal segments without significant change, following stress test there was also notation of diminished tracer uptake in portions of the brenna to mid inferior segments (findings suggestive of stress induced myocardial ischemia involving portions of the basal to mid inferior segments ). Risk factors : -Daily marijuana smoker. -DM type 2 ,last HbA1c 07/02/13 :6.8 -HTN -Hyperlipidemia : last fasting lipid panel 03/06/13 :Triglyceride 104, Cholesterol 197, HDL 55, LDL 121 -Hx of CAD S/P LHC in 03/07/12 :. Severe CAD of the mid circumflex. Chronically occluded right coronary artery. -Diet non compliant PLAN ---Telemetry ---BB ---ASA ---Statin ---Heparin gtt ---Serial cardiac enzymes [facility] on 07/31/13 :The RCA is a large dominant vessel that is totally occluded in the proximal segment. The distal RCA, posterior descending artery, and posterior ventricular branches fill by robust [id number] collaterals from the LAD and LCx. Recommendations: 1) Continue aggressive risk factor modification 2) No need for intervention to RCA, given robust collaterals. Alcohol abuse 03/05/2012 03/16/2012 Overview: Drinks beer - three 24oz cans 2-3 times a day [facility] alcohol withdrawal protocol in house Advise to stop binge drinking Unstable angina 03/04/2012 03/15/2012 Overview: LHC ( 03/04/2012 ) at [place] by Dr. Barakat LVEDP elevated LV; normal LV size, Wall motion, and sustolic function estimated VLVEF 65% LM : short/ angiographically normal LAD : diffuse MLI, mid to distal 10-25% stenosis LCx ; proximal 25 -50 % eccentric stenosis, distal diffuse MLI OM; large vessel: proximal 95-99% stenosis RCA : large/dominant vessel with proximal 100% occlusion and distal vessel filling from left to right collateral flow LHC at [facility] 03/07: 80% mid LCx stenosis, one BMS placed in mid LCx Chronically occluded RCA - ASA lifelong - Statin, BB - Plavix for at least 4 weeks - follow up with local farm machine operator as outpatient SUMMARY 03/04/2012 03/16/2012 Overview: 57 year old male with a PMH of DM, HTN, & HPL who was transferred from [facility] for further treatment of known 2 vessel CAD. Presented with chest pain, no acute change in EKG, no elevation in the cardiac enzymes, (+) nuclear stress test, and a LHC which showed OM1 95-99% stenosis and RCA 100% stenosis. Patient underwent LHC at [facility] on 03/07, which revealed severe stenosis in LCx, occluded RCA. One BMS is placed in LCx. Patient is on aspirin, Plavix, Toprol XL, Lipitor on discharge. Smoking 03/04/2012 03/04/2012 Hypertension 03/04/2012 10/06/2017 Hypertrophy of prostate with out urinary obstruction and other lower urinary tract symptoms (LUTS) 07/28/2007 03/04/2012 Obesity (BMI 30-39.9) 07/30/2021 documented as of this encounter (statuses as of 11/16/2022) [facility] History of Past illness Narrative* Problem Noted Date Resolved Date Lower urinary tract symptoms (LUTS) 12/11/2015 05/04/2018 Unstable angina 07/28/2013 09/06/2013 Overview: Atypical chest pain Negative cardiac enzymes EKG : Q wave in the inferior leads Myocardial perfusion imaging study: was done while in the OSH: it showed diminished tracer uptake in portions of the basal inferoseptal segments without significant change, following stress test there was also notation of diminished tracer uptake in portions of the brenna to mid inferior segments (findings suggestive of stress induced myocardial ischemia involving portions of the basal to mid inferior segments ). Risk factors : -Daily marijuana smoker. -DM type 2 ,last HbA1c 07/02/13 :6.8 -HTN -Hyperlipidemia : last fasting lipid panel 03/06/13 :Triglyceride 104, Cholesterol 197, HDL 55, LDL 121 -Hx of CAD S/P LHC in 03/07/12 :. Severe CAD of the mid circumflex. Chronically occluded right coronary artery. -Diet non compliant PLAN ---Telemetry ---BB ---ASA ---Statin ---Heparin gtt ---Serial cardiac enzymes LHC on 07/31/13 :The RCA is a large dominant vessel that is totally occluded in the proximal segment. The distal RCA, posterior descending artery, and posterior ventricular branches fill by robust [id number] collaterals from the LAD and LCx. Recommendations: 1) Continue aggressive risk factor modification 2) No need for intervention to RCA, given robust collaterals. Alcohol abuse 03/05/2012 03/16/2012 Overview: Drinks beer - three 24oz cans 2-3 times a day [facility] alcohol withdrawal protocol in house Advise to stop binge drinking Unstable angina 03/04/2012 03/15/2012 Overview: [facility] ( 03/04/2012 ) at [place] by Dr. Barakat LVEDP elevated LV; normal LV size, Wall motion, and sustolic function estimated VLVEF 65% LM : short/ angiographically normal LAD : diffuse MLI, mid to distal 10-25% stenosis LCx ; proximal 25 -50 % eccentric stenosis, distal diffuse MLI OM; large vessel: proximal 95-99% stenosis RCA : large/dominant vessel with proximal 100% occlusion and distal vessel filling from left to right collateral flow LHC at [facility] 03/07: 80% mid LCx stenosis, one BMS placed in mid LCx Chronically occluded RCA - ASA lifelong - Statin, BB - Plavix for at least 4 weeks - follow up with local farm machine operator as outpatient SUMMARY 03/04/2012 03/16/2012 Overview: 57 year old male with a PMH of DM, HTN, & HPL who was transferred from [facility] for further treatment of known 2 vessel CAD. Presented with chest pain, no acute change in EKG, no elevation in the cardiac enzymes, (+) nuclear stress test, and a LHC which showed OM1 95-99% stenosis and RCA 100% stenosis. Patient underwent LHC at [facility] on 03/07, which revealed severe stenosis in LCx, occluded RCA. One BMS is placed in LCx. Patient is on aspirin, Plavix, Toprol XL, Lipitor on discharge. Smoking 03/04/2012 03/04/2012 Hypertension 03/04/2012 10/06/2017 Hypertrophy of prostate with out urinary obstruction and other lower urinary tract symptoms (LUTS) 07/28/2007 03/04/2012 Obesity (BMI 30-39.9) 07/30/2021 documented as of this encounter (statuses as of 11/26/2022) [facility] History of Past illness Narrative* Problem Noted Date Resolved Date Lower urinary tract symptoms (LUTS) 12/11/2015 05/04/2018 Unstable angina 07/28/2013 09/06/2013 Overview: Atypical chest pain Negative cardiac enzymes EKG : Q wave in the inferior leads Myocardial perfusion imaging study: was done while in the OSH: it showed diminished tracer uptake in portions of the basal inferoseptal segments without significant change, following stress test there was also notation of diminished tracer uptake in portions of the brenna to mid inferior segments (findings suggestive of stress induced myocardial ischemia involving portions of the basal to mid inferior segments ). Risk factors : -Daily marijuana smoker. -DM type 2 ,last HbA1c 07/02/13 :6.8 -HTN -Hyperlipidemia : last fasting lipid panel 03/06/13 :Triglyceride 104, Cholesterol 197, HDL 55, LDL 121 -Hx of CAD S/P LHC in 03/07/12 :. Severe CAD of the mid circumflex. Chronically occluded right coronary artery. -Diet non compliant PLAN ---Telemetry ---BB ---ASA ---Statin ---Heparin gtt ---Serial cardiac enzymes LHC on 07/31/13 :The RCA is a large dominant vessel that is totally occluded in the proximal segment. The distal RCA, posterior descending artery, and posterior ventricular branches fill by robust [id number] collaterals from the LAD and LCx. Recommendations: 1) Continue aggressive risk factor modification 2) No need for intervention to RCA, given robust collaterals. Alcohol abuse 03/05/2012 03/16/2012 Overview: Drinks beer - three 24oz cans 2-3 times a day [facility] alcohol withdrawal protocol in house Advise to stop binge drinking Unstable angina 03/04/2012 03/15/2012 Overview: LHC ( 03/04/2012 ) at [place] by Dr. Barakat LVEDP elevated LV; normal LV size, Wall motion, and sustolic function estimated VLVEF 65% LM : short/ angiographically normal LAD : diffuse MLI, mid to distal 10-25% stenosis LCx ; proximal 25 -50 % eccentric stenosis, distal diffuse MLI OM; large vessel: proximal 95-99% stenosis RCA : large/dominant vessel with proximal 100% occlusion and distal vessel filling from left to right collateral flow LHC at [facility] 03/07: 80% mid LCx stenosis, one BMS placed in mid LCx Chronically occluded RCA - ASA lifelong - Statin, BB - Plavix for at least 4 weeks - follow up with local farm machine operator as outpatient SUMMARY 03/04/2012 03/16/2012 Overview: 57 year old male with a PMH of DM, HTN, & HPL who was transferred from [facility] for further treatment of known 2 vessel CAD. Presented with chest pain, no acute change in EKG, no elevation in the cardiac enzymes, (+) nuclear stress test, and a LHC which showed OM1 95-99% stenosis and RCA 100% stenosis. Patient underwent LHC at [facility] on 03/07, which revealed severe stenosis in LCx, occluded RCA. One BMS is placed in LCx. Patient is on aspirin, Plavix, Toprol XL, Lipitor on discharge. Smoking 03/04/2012 03/04/2012 Hypertension 03/04/2012 10/06/2017 Hypertrophy of prostate with out urinary obstruction and other lower urinary tract symptoms (LUTS) 07/28/2007 03/04/2012 Obesity (BMI 30-39.9) 07/30/2021 documented as of this encounter (statuses as of 12/16/2022) [facility] History of Past illness Narrative* Problem Noted Date Resolved Date Lower urinary tract symptoms (LUTS) 12/11/2015 05/04/2018 Unstable angina 07/28/2013 09/06/2013 Overview: Atypical chest pain Negative cardiac enzymes EKG : Q wave in the inferior leads Myocardial perfusion imaging study: was done while in the OSH: it showed diminished tracer uptake in portions of the basal inferoseptal segments without significant change, following stress test there was also notation of diminished tracer uptake in portions of the brenna to mid inferior segments (findings suggestive of stress induced myocardial ischemia involving portions of the basal to mid inferior segments ). Risk factors : -Daily marijuana smoker. -DM type 2 ,last HbA1c 07/02/13 :6.8 -HTN -Hyperlipidemia : last fasting lipid panel 03/06/13 :Triglyceride 104, Cholesterol 197, HDL 55, LDL 121 -Hx of CAD S/P LHC in 03/07/12 :. Severe CAD of the mid circumflex. Chronically occluded right coronary artery. -Diet non compliant PLAN ---Telemetry ---BB ---ASA ---Statin ---Heparin gtt ---Serial cardiac enzymes LHC on 07/31/13 :The RCA is a large dominant vessel that is totally occluded in the proximal segment. The distal RCA, posterior descending artery, and posterior ventricular branches fill by robust [id number]-[id number] collaterals from the LAD and LCx. Recommendations: 1) Continue aggressive risk factor modification 2) No need for intervention to RCA, given robust collaterals. Alcohol abuse 03/05/2012 03/16/2012 Overview: Drinks beer - three 24oz cans 2-3 times a day [facility] alcohol withdrawal protocol in house Advise to stop binge drinking Unstable angina 03/04/2012 03/15/2012 Overview: LHC ( 03/04/2012 ) at [place] by Dr. Barakat LVEDP elevated LV; normal LV size, Wall motion, and sustolic function estimated VLVEF 65% LM : short/ angiographically normal LAD : diffuse MLI, mid to distal 10-25% stenosis LCx ; proximal 25 -50 % eccentric stenosis, distal diffuse MLI OM; large vessel: proximal 95-99% stenosis RCA : large/dominant vessel with proximal 100% occlusion and distal vessel filling from left to right collateral flow LHC at [facility] 03/07: 80% mid LCx stenosis, one BMS placed in mid LCx Chronically occluded RCA - ASA lifelong - Statin, BB - Plavix for at least 4 weeks - follow up with local farm machine operator as outpatient SUMMARY 03/04/2012 03/16/2012 Overview: 57 year old male with a PMH of DM, HTN, & HPL who was transferred from [facility] for further treatment of known 2 vessel CAD. Presented with chest pain, no acute change in EKG, no elevation in the cardiac enzymes, (+) nuclear stress test, and a LHC which showed OM1 95-99% stenosis and RCA 100% stenosis. Patient underwent LHC at [facility] on 03/07, which revealed severe stenosis in LCx, occluded RCA. One BMS is placed in LCx. Patient is on aspirin, Plavix, Toprol XL, Lipitor on discharge. Smoking 03/04/2012 03/04/2012 Hypertension 03/04/2012 10/06/2017 Hypertrophy of prostate with out urinary obstruction and other lower urinary tract symptoms (LUTS) 07/28/2007 03/04/2012 Obesity (BMI 30-39.9) 07/30/2021 documented as of this encounter (statuses as of 12/18/2022) [facility]03-16[facility]2016 History of Past illness Narrative* Problem Noted Date Resolved Date Lower urinary tract symptoms (LUTS) 12/11/2015 05/04/2018 Unstable angina 07/28/2013 09/06/2013 Overview: Atypical chest pain Negative cardiac enzymes EKG : Q wave in the inferior leads Myocardial perfusion imaging study: was done while in the OSH: it showed diminished tracer uptake in portions of the basal inferoseptal segments without significant change, following stress test there was also notation of diminished tracer uptake in portions of the brenna to mid inferior segments (findings suggestive of stress induced myocardial ischemia involving portions of the basal to mid inferior segments ). Risk factors : -Daily marijuana smoker. -DM type 2 ,last HbA1c 07/02/13 :6.8 -HTN -Hyperlipidemia : last fasting lipid panel 03/06/13 :Triglyceride 104, Cholesterol 197, HDL 55, LDL 121 -Hx of CAD S/P LHC in 03/07/12 :. Severe CAD of the mid circumflex. Chronically occluded right coronary artery. -Diet non compliant PLAN ---Telemetry ---BB ---ASA ---Statin ---Heparin gtt ---Serial cardiac enzymes LHC on 07/31/13 :The RCA is a large dominant vessel that is totally occluded in the proximal segment. The distal RCA, posterior descending artery, and posterior ventricular branches fill by robust [id number] collaterals from the LAD and LCx. Recommendations: 1) Continue aggressive risk factor modification 2) No need for intervention to RCA, given robust collaterals. Alcohol abuse 03/05/2012 03/16/2012 Overview: Drinks beer - three 24oz cans 2-3 times a day [facility] alcohol withdrawal protocol in house Advise to stop binge drinking Unstable angina 03/04/2012 03/15/2012 Overview: [facility] ( 03/04/2012 ) at [place] by Dr. Barakat LVEDP elevated LV; normal LV size, Wall motion, and sustolic function estimated VLVEF 65% LM : short/ angiographically normal LAD : diffuse MLI, mid to distal 10-25% stenosis LCx ; proximal 25 -50 % eccentric stenosis, distal diffuse MLI OM; large vessel: proximal 95-99% stenosis RCA : large/dominant vessel with proximal 100% occlusion and distal vessel filling from left to right collateral flow LHC at [facility] 03/07: 80% mid LCx stenosis, one BMS placed in mid LCx Chronically occluded RCA - ASA lifelong - Statin, BB - Plavix for at least 4 weeks - follow up with local farm machine operator as outpatient SUMMARY 03/04/2012 03/16/2012 Overview: 57 year old male with a PMH of DM, HTN, & HPL who was transferred from [facility] for further treatment of known 2 vessel CAD. Presented with chest pain, no acute change in EKG, no elevation in the cardiac enzymes, (+) nuclear stress test, and a LHC which showed OM1 95-99% stenosis and RCA 100% stenosis. Patient underwent LHC at [facility] on 03/07, which revealed severe stenosis in LCx, occluded RCA. One BMS is placed in LCx. Patient is on aspirin, Plavix, Toprol XL, Lipitor on discharge. Smoking 03/04/2012 03/04/2012 Hypertension 03/04/2012 10/06/2017 Hypertrophy of prostate with out urinary obstruction and other lower urinary tract symptoms (LUTS) 07/28/2007 03/04/2012 Obesity (BMI 30-39.9) 07/30/2021 documented as of this encounter (statuses as of 12/28/2022) [facility] History of Past illness Narrative* Problem Noted Date Resolved Date Lower urinary tract symptoms (LUTS) 12/11/2015 05/04/2018 Unstable angina 07/28/2013 09/06/2013 Overview: Atypical chest pain Negative cardiac enzymes EKG : Q wave in the inferior leads Myocardial perfusion imaging study: was done while in the OSH: it showed diminished tracer uptake in portions of the basal inferoseptal segments without significant change, following stress test there was also notation of diminished tracer uptake in portions of the brenna to mid inferior segments (findings suggestive of stress induced myocardial ischemia involving portions of the basal to mid inferior segments ). Risk factors : -Daily marijuana smoker. -DM type 2 ,last HbA1c 07/02/13 :6.8 -HTN -Hyperlipidemia : last fasting lipid panel 03/06/13 :Triglyceride 104, Cholesterol 197, HDL 55, LDL 121 -Hx of CAD S/P LHC in 03/07/12 :. Severe CAD of the mid circumflex. Chronically occluded right coronary artery. -Diet non compliant PLAN ---Telemetry ---BB ---ASA ---Statin ---Heparin gtt ---Serial cardiac enzymes LHC on 07/31/13 :The RCA is a large dominant vessel that is totally occluded in the proximal segment. The distal RCA, posterior descending artery, and posterior ventricular branches fill by robust [id number] collaterals from the LAD and LCx. Recommendations: 1) Continue aggressive risk factor modification 2) No need for intervention to RCA, given robust collaterals. Alcohol abuse 03/05/2012 03/16/2012 Overview: Drinks beer - three 24oz cans 2-3 times a day [facility] alcohol withdrawal protocol in house Advise to stop binge drinking Unstable angina 03/04/2012 03/15/2012 Overview: LHC ( 03/04/2012 ) at [place] by Dr. Barakat LVEDP elevated LV; normal LV size, Wall motion, and sustolic function estimated VLVEF 65% LM : short/ angiographically normal LAD : diffuse MLI, mid to distal 10-25% stenosis LCx ; proximal 25 -50 % eccentric stenosis, distal diffuse MLI OM; large vessel: proximal 95-99% stenosis RCA : large/dominant vessel with proximal 100% occlusion and distal vessel filling from left to right collateral flow LHC at [facility] 03/07: 80% mid LCx stenosis, one BMS placed in mid LCx Chronically occluded RCA - ASA lifelong - Statin, BB - Plavix for at least 4 weeks - follow up with local farm machine operator as outpatient SUMMARY 03/04/2012 03/16/2012 Overview: 57 year old male with a PMH of DM, HTN, & HPL who was transferred from [facility] for further treatment of known 2 vessel CAD. Presented with chest pain, no acute change in EKG, no elevation in the cardiac enzymes, (+) nuclear stress test, and a LHC which showed OM1 95-99% stenosis and RCA 100% stenosis. Patient underwent LHC at [facility] on 03/07, which revealed severe stenosis in LCx, occluded RCA. One BMS is placed in LCx. Patient is on aspirin, Plavix, Toprol XL, Lipitor on discharge. Smoking 03/04/2012 03/04/2012 Hypertension 03/04/2012 10/06/2017 Hypertrophy of prostate with out urinary obstruction and other lower urinary tract symptoms (LUTS) 07/28/2007 03/04/2012 Obesity (BMI 30-39.9) 07/30/2021 documented as of this encounter (statuses as of 01/09/2023) [facility] History of Past illness Narrative* Problem Noted Date Resolved Date Lower urinary tract symptoms (LUTS) 12/11/2015 05/04/2018 Unstable angina 07/28/2013 09/06/2013 Overview: Atypical chest pain Negative cardiac enzymes EKG : Q wave in the inferior leads Myocardial perfusion imaging study: was done while in the OSH: it showed diminished tracer uptake in portions of the basal inferoseptal segments without significant change, following stress test there was also notation of diminished tracer uptake in portions of the brenna to mid inferior segments (findings suggestive of stress induced myocardial ischemia involving portions of the basal to mid inferior segments ). Risk factors : -Daily marijuana smoker. -DM type 2 ,last HbA1c 07/02/13 :6.8 -HTN -Hyperlipidemia : last fasting lipid panel 03/06/13 :Triglyceride 104, Cholesterol 197, HDL 55, LDL 121 -Hx of CAD S/P LHC in 03/07/12 :. Severe CAD of the mid circumflex. Chronically occluded right coronary artery. -Diet non compliant PLAN ---Telemetry ---BB ---ASA ---Statin ---Heparin gtt ---Serial cardiac enzymes LHC on 07/31/13 :The RCA is a large dominant vessel that is totally occluded in the proximal segment. The distal RCA, posterior descending artery, and posterior ventricular branches fill by robust [id number] collaterals from the LAD and LCx. Recommendations: 1) Continue aggressive risk factor modification 2) No need for intervention to RCA, given robust collaterals. Alcohol abuse 03/05/2012 03/16/2012 Overview: Drinks beer - three 24oz cans 2-3 times a day [facility] alcohol withdrawal protocol in house Advise to stop binge drinking Unstable angina 03/04/2012 03/15/2012 Overview: LHC ( 03/04/2012 ) at [place] by Dr. Barakat LVEDP elevated LV; normal LV size, Wall motion, and sustolic function estimated VLVEF 65% LM : short/ angiographically normal LAD : diffuse MLI, mid to distal 10-25% stenosis LCx ; proximal 25 -50 % eccentric stenosis, distal diffuse MLI OM; large vessel: proximal 95-99% stenosis RCA : large/dominant vessel with proximal 100% occlusion and distal vessel filling from left to right collateral flow LHC at [facility] 03/07: 80% mid LCx stenosis, one BMS placed in mid LCx Chronically occluded RCA - ASA lifelong - Statin, BB - Plavix for at least 4 weeks - follow up with local farm machine operator as outpatient SUMMARY 03/04/2012 03/16/2012 Overview: 57 year old male with a PMH of DM, HTN, & HPL who was transferred from [facility] for further treatment of known 2 vessel CAD. Presented with chest pain, no acute change in EKG, no elevation in the cardiac enzymes, (+) nuclear stress test, and a LHC which showed OM1 95-99% stenosis and RCA 100% stenosis. Patient underwent LHC at [facility] on 03/07, which revealed severe stenosis in LCx, occluded RCA. One BMS is placed in LCx. Patient is on aspirin, Plavix, Toprol XL, Lipitor on discharge. Smoking 03/04/2012 03/04/2012 Hypertension 03/04/2012 10/06/2017 Hypertrophy of prostate with out urinary obstruction and other lower urinary tract symptoms (LUTS) 07/28/2007 03/04/2012 Obesity (BMI 30-39.9) 07/30/2021 documented as of this encounter (statuses as of 01/12/2023) [facility] History of Past illness Narrative* Problem Noted Date Resolved Date Lower urinary tract symptoms (LUTS) 12/11/2015 05/04/2018 Unstable angina 07/28/2013 09/06/2013 Overview: Atypical chest pain Negative cardiac enzymes EKG : Q wave in the inferior leads Myocardial perfusion imaging study: was done while in the OSH: it showed diminished tracer uptake in portions of the basal inferoseptal segments without significant change, following stress test there was also notation of diminished tracer uptake in portions of the brenna to mid inferior segments (findings suggestive of stress induced myocardial ischemia involving portions of the basal to mid inferior segments ). Risk factors : -Daily marijuana smoker. -DM type 2 ,last HbA1c 07/02/13 :6.8 -HTN -Hyperlipidemia : last fasting lipid panel 03/06/13 :Triglyceride 104, Cholesterol 197, HDL 55, LDL 121 -Hx of CAD S/P LHC in 03/07/12 :. Severe CAD of the mid circumflex. Chronically occluded right coronary artery. -Diet non compliant PLAN ---Telemetry ---BB ---ASA ---Statin ---Heparin gtt ---Serial cardiac enzymes LHC on 07/31/13 :The RCA is a large dominant vessel that is totally occluded in the proximal segment. The distal RCA, posterior descending artery, and posterior ventricular branches fill by robust [id number] collaterals from the LAD and LCx. Recommendations: 1) Continue aggressive risk factor modification 2) No need for intervention to RCA, given robust collaterals. Alcohol abuse 03/05/2012 03/16/2012 Overview: Drinks beer - three 24oz cans 2-3 times a day [facility] alcohol withdrawal protocol in house Advise to stop binge drinking Unstable angina 03/04/2012 03/15/2012 Overview: LHC ( 03/04/2012 ) at [place] by Dr. Barakat LVEDP elevated LV; normal LV size, Wall motion, and sustolic function estimated VLVEF 65% LM : short/ angiographically normal LAD : diffuse MLI, mid to distal 10-25% stenosis LCx ; proximal 25 -50 % eccentric stenosis, distal diffuse MLI OM; large vessel: proximal 95-99% stenosis RCA : large/dominant vessel with proximal 100% occlusion and distal vessel filling from left to right collateral flow LHC at [facility] 03/07: 80% mid LCx stenosis, one BMS placed in mid LCx Chronically occluded RCA - ASA lifelong - Statin, BB - Plavix for at least 4 weeks - follow up with local farm machine operator as outpatient SUMMARY 03/04/2012 03/16/2012 Overview: 57 year old male with a PMH of DM, HTN, & HPL who was transferred from [facility] for further treatment of known 2 vessel CAD. Presented with chest pain, no acute change in EKG, no elevation in the cardiac enzymes, (+) nuclear stress test, and a LHC which showed OM1 95-99% stenosis and RCA 100% stenosis. Patient underwent LHC at [facility] on 03/07, which revealed severe stenosis in LCx, occluded RCA. One BMS is placed in LCx. Patient is on aspirin, Plavix, Toprol XL, Lipitor on discharge. Smoking 03/04/2012 03/04/2012 Hypertension 03/04/2012 10/06/2017 Hypertrophy of prostate with out urinary obstruction and other lower urinary tract symptoms (LUTS) 07/28/2007 03/04/2012 Obesity (BMI 30-39.9) 07/30/2021 documented as of this encounter (statuses as of 01/20/2023) [facility] History of Past illness Narrative* Problem Noted Date Resolved Date Lower urinary tract symptoms (LUTS) 12/11/2015 05/04/2018 Unstable angina 07/28/2013 09/06/2013 Overview: Atypical chest pain Negative cardiac enzymes EKG : Q wave in the inferior leads Myocardial perfusion imaging study: was done while in the OSH: it showed diminished tracer uptake in portions of the basal inferoseptal segments without significant change, following stress test there was also notation of diminished tracer uptake in portions of the brenna to mid inferior segments (findings suggestive of stress induced myocardial ischemia involving portions of the basal to mid inferior segments ). Risk factors : -Daily marijuana smoker. -DM type 2 ,last HbA1c 07/02/13 :6.8 -HTN -Hyperlipidemia : last fasting lipid panel 03/06/13 :Triglyceride 104, Cholesterol 197, HDL 55, LDL 121 -Hx of CAD S/P LHC in 03/07/12 :. Severe CAD of the mid circumflex. Chronically occluded right coronary artery. -Diet non compliant PLAN ---Telemetry ---BB ---ASA ---Statin ---Heparin gtt ---Serial cardiac enzymes [facility] on 07/31/13 :The RCA is a large dominant vessel that is totally occluded in the proximal segment. The distal RCA, posterior descending artery, and posterior ventricular branches fill by robust [id number] collaterals from the LAD and LCx. Recommendations: 1) Continue aggressive risk factor modification 2) No need for intervention to RCA, given robust collaterals. Alcohol abuse 03/05/2012 03/16/2012 Overview: Drinks beer - three 24oz cans 2-3 times a day [facility] alcohol withdrawal protocol in house Advise to stop binge drinking Unstable angina 03/04/2012 03/15/2012 Overview: LHC ( 03/04/2012 ) at [place] by Dr. Barakat LVEDP elevated LV; normal LV size, Wall motion, and sustolic function estimated VLVEF 65% LM : short/ angiographically normal LAD : diffuse MLI, mid to distal 10-25% stenosis LCx ; proximal 25 -50 % eccentric stenosis, distal diffuse MLI OM; large vessel: proximal 95-99% stenosis RCA : large/dominant vessel with proximal 100% occlusion and distal vessel filling from left to right collateral flow LHC at [facility] 03/07: 80% mid LCx stenosis, one BMS placed in mid LCx Chronically occluded RCA - ASA lifelong - Statin, BB - Plavix for at least 4 weeks - follow up with local farm machine operator as outpatient SUMMARY 03/04/2012 03/16/2012 Overview: 57 year old male with a PMH of DM, HTN, & HPL who was transferred from [facility] for further treatment of known 2 vessel CAD. Presented with chest pain, no acute change in EKG, no elevation in the cardiac enzymes, (+) nuclear stress test, and a LHC which showed OM1 95-99% stenosis and RCA 100% stenosis. Patient underwent LHC at [facility] on 03/07, which revealed severe stenosis in LCx, occluded RCA. One BMS is placed in LCx. Patient is on aspirin, Plavix, Toprol XL, Lipitor on discharge. Smoking 03/04/2012 03/04/2012 Hypertension 03/04/2012 10/06/2017 Hypertrophy of prostate with out urinary obstruction and other lower urinary tract symptoms (LUTS) 07/28/2007 03/04/2012 Obesity (BMI 30-39.9) 07/30/2021 documented as of this encounter (statuses as of 03/24/2023) [facility] History of Past illness Narrative* Problem Noted Date Resolved Date Lower urinary tract symptoms (LUTS) 12/11/2015 05/04/2018 Unstable angina 07/28/2013 09/06/2013 Overview: Atypical chest pain Negative cardiac enzymes EKG : Q wave in the inferior leads Myocardial perfusion imaging study: was done while in the OSH: it showed diminished tracer uptake in portions of the basal inferoseptal segments without significant change, following stress test there was also notation of diminished tracer uptake in portions of the brenna to mid inferior segments (findings suggestive of stress induced myocardial ischemia involving portions of the basal to mid inferior segments ). Risk factors : -Daily marijuana smoker. -DM type 2 ,last HbA1c 07/02/13 :6.8 -HTN -Hyperlipidemia : last fasting lipid panel 03/06/13 :Triglyceride 104, Cholesterol 197, HDL 55, LDL 121 -Hx of CAD S/P LHC in 03/07/12 :. Severe CAD of the mid circumflex. Chronically occluded right coronary artery. -Diet non compliant PLAN ---Telemetry ---BB ---ASA ---Statin ---Heparin gtt ---Serial cardiac enzymes LHC on 07/31/13 :The RCA is a large dominant vessel that is totally occluded in the proximal segment. The distal RCA, posterior descending artery, and posterior ventricular branches fill by robust [id number] collaterals from the LAD and LCx. Recommendations: 1) Continue aggressive risk factor modification 2) No need for intervention to RCA, given robust collaterals. Alcohol abuse 03/05/2012 03/16/2012 Overview: Drinks beer - three 24oz cans 2-3 times a day [facility] alcohol withdrawal protocol in house Advise to stop binge drinking Unstable angina 03/04/2012 03/15/2012 Overview: [facility] ( 03/04/2012 ) at [place] by Dr. Barakat LVEDP elevated LV; normal LV size, Wall motion, and sustolic function estimated VLVEF 65% LM : short/ angiographically normal LAD : diffuse MLI, mid to distal 10-25% stenosis LCx ; proximal 25 -50 % eccentric stenosis, distal diffuse MLI OM; large vessel: proximal 95-99% stenosis RCA : large/dominant vessel with proximal 100% occlusion and distal vessel filling from left to right collateral flow LHC at [facility] 03/07: 80% mid LCx stenosis, one BMS placed in mid LCx Chronically occluded RCA - ASA lifelong - Statin, BB - Plavix for at least 4 weeks - follow up with local farm machine operator as outpatient SUMMARY 03/04/2012 03/16/2012 Overview: 57 year old male with a PMH of DM, HTN, & HPL who was transferred from [facility] for further treatment of known 2 vessel CAD. Presented with chest pain, no acute change in EKG, no elevation in the cardiac enzymes, (+) nuclear stress test, and a LHC which showed OM1 95-99% stenosis and RCA 100% stenosis. Patient underwent LHC at [facility] on 03/07, which revealed severe stenosis in LCx, occluded RCA. One BMS is placed in LCx. Patient is on aspirin, Plavix, Toprol XL, Lipitor on discharge. Smoking 03/04/2012 03/04/2012 Hypertension 03/04/2012 10/06/2017 Hypertrophy of prostate with out urinary obstruction and other lower urinary tract symptoms (LUTS) 07/28/2007 03/04/2012 Obesity (BMI 30-39.9) 07/30/2021 documented as of this encounter (statuses as of 04/02/2023) [facility] History of Past illness Narrative* Problem Noted Date Diagnosed Date Resolved Date Lower urinary tract symptoms (LUTS) 12/11/2015 05/04/2018 Unstable angina 07/28/2013 09/06/2013 Overview: Atypical chest pain Negative cardiac enzymes EKG : Q wave in the inferior leads Myocardial perfusion imaging study: was done while in the OSH: it showed diminished tracer uptake in portions of the basal inferoseptal segments without significant change, following stress test there was also notation of diminished tracer uptake in portions of the brenna to mid inferior segments (findings suggestive of stress induced myocardial ischemia involving portions of the basal to mid inferior segments ). Risk factors : -Daily marijuana smoker. -DM type 2 ,last HbA1c 07/02/13 :6.8 -HTN -Hyperlipidemia : last fasting lipid panel 03/06/13 :Triglyceride 104, Cholesterol 197, HDL 55, LDL 121 -Hx of CAD S/P LHC in 03/07/12 :. Severe CAD of the mid circumflex. Chronically occluded right coronary artery. -Diet non compliant PLAN ---Telemetry ---BB ---ASA ---Statin ---Heparin gtt ---Serial cardiac enzymes LHC on 07/31/13 :The RCA is a large dominant vessel that is totally occluded in the proximal segment. The distal RCA, posterior descending artery, and posterior ventricular branches fill by robust [id number] collaterals from the LAD and LCx. Recommendations: 1) Continue aggressive risk factor modification 2) No need for intervention to RCA, given robust collaterals. Alcohol abuse 03/05/2012 03/16/2012 Overview: Drinks beer - three 24oz cans 2-3 times a day [facility] alcohol withdrawal protocol in house Advise to stop binge drinking Unstable angina 03/04/2012 03/15/2012 Overview: LHC ( 03/04/2012 ) at [place] by Dr. Barakat LVEDP elevated LV; normal LV size, Wall motion, and sustolic function estimated VLVEF 65% LM : short/ angiographically normal LAD : diffuse MLI, mid to distal 10-25% stenosis LCx ; proximal 25 -50 % eccentric stenosis, distal diffuse MLI OM; large vessel: proximal 95-99% stenosis RCA : large/dominant vessel with proximal 100% occlusion and distal vessel filling from left to right collateral flow LHC at [facility] 03/07: 80% mid LCx stenosis, one BMS placed in mid LCx Chronically occluded RCA - ASA lifelong - Statin, BB - Plavix for at least 4 weeks - follow up with local farm machine operator as outpatient SUMMARY 03/04/2012 03/16/2012 Overview: 57 year old male with a PMH of DM, HTN, & HPL who was transferred from [facility] for further treatment of known 2 vessel CAD. Presented with chest pain, no acute change in EKG, no elevation in the cardiac enzymes, (+) nuclear stress test, and a LHC which showed OM1 95-99% stenosis and RCA 100% stenosis. Patient underwent LHC at [facility] on 03/07, which revealed severe stenosis in LCx, occluded RCA. One BMS is placed in LCx. Patient is on aspirin, Plavix, Toprol XL, Lipitor on discharge. Smoking 03/04/2012 03/04/2012 Hypertension 03/04/2012 10/06/2017 Hypertrophy of prostate with out urinary obstruction and other lower urinary tract symptoms (LUTS) 07/28/2007 03/04/2012 Obesity (BMI 30-39.9) 2020 documented as of this encounter (statuses as of 04/08/2023) [facility]03[facility]2016 History of Past illness Narrative* Problem Noted Date Diagnosed Date Resolved Date Lower urinary tract symptoms (LUTS) 12/11/2015 05/04/2018 Unstable angina 07/28/2013 09/06/2013 Overview: Atypical chest pain Negative cardiac enzymes EKG : Q wave in the inferior leads Myocardial perfusion imaging study: was done while in the OSH: it showed diminished tracer uptake in portions of the basal inferoseptal segments without significant change, following stress test there was also notation of diminished tracer uptake in portions of the brenna to mid inferior segments (findings suggestive of stress induced myocardial ischemia involving portions of the basal to mid inferior segments ). Risk factors : -Daily marijuana smoker. -DM type 2 ,last HbA1c 07/02/13 :6.8 -HTN -Hyperlipidemia : last fasting lipid panel 03/06/13 :Triglyceride 104, Cholesterol 197, HDL 55, LDL 121 -Hx of CAD S/P LHC in 03/07/12 :. Severe CAD of the mid circumflex. Chronically occluded right coronary artery. -Diet non compliant PLAN ---Telemetry ---BB ---ASA ---Statin ---Heparin gtt ---Serial cardiac enzymes LHC on 07/31/13 :The RCA is a large dominant vessel that is totally occluded in the proximal segment. The distal RCA, posterior descending artery, and posterior ventricular branches fill by robust [id number] collaterals from the LAD and LCx. Recommendations: 1) Continue aggressive risk factor modification 2) No need for intervention to RCA, given robust collaterals. Alcohol abuse 03/05/2012 03/16/2012 Overview: Drinks beer - three 24oz cans 2-3 times a day [facility] alcohol withdrawal protocol in house Advise to stop binge drinking Unstable angina 03/04/2012 03/15/2012 Overview: LHC ( 03/04/2012 ) at [place] by Dr. Barakat LVEDP elevated LV; normal LV size, Wall motion, and sustolic function estimated VLVEF 65% LM : short/ angiographically normal LAD : diffuse MLI, mid to distal 10-25% stenosis LCx ; proximal 25 -50 % eccentric stenosis, distal diffuse MLI OM; large vessel: proximal 95-99% stenosis RCA : large/dominant vessel with proximal 100% occlusion and distal vessel filling from left to right collateral flow LHC at [facility] 03/07: 80% mid LCx stenosis, one BMS placed in mid LCx Chronically occluded RCA - ASA lifelong - Statin, BB - Plavix for at least 4 weeks - follow up with local farm machine operator as outpatient SUMMARY 03/04/2012 03/16/2012 Overview: 57 year old male with a PMH of DM, HTN, & HPL who was transferred from [facility] for further treatment of known 2 vessel CAD. Presented with chest pain, no acute change in EKG, no elevation in the cardiac enzymes, (+) nuclear stress test, and a LHC which showed OM1 95-99% stenosis and RCA 100% stenosis. Patient underwent LHC at [facility] on 03/07, which revealed severe stenosis in LCx, occluded RCA. One BMS is placed in LCx. Patient is on aspirin, Plavix, Toprol XL, Lipitor on discharge. Smoking 03/04/2012 03/04/2012 Hypertension 03/04/2012 10/06/2017 Hypertrophy of prostate with out urinary obstruction and other lower urinary tract symptoms (LUTS) 07/28/2007 03/04/2012 Obesity (BMI 30-39.9) 2020 documented as of this encounter (statuses as of 04/14/2023) [facility] History of Past illness Narrative* Problem Noted Date Diagnosed Date Resolved Date Lower urinary tract symptoms (LUTS) 12/11/2015 05/04/2018 Unstable angina 07/28/2013 09/06/2013 Overview: Atypical chest pain Negative cardiac enzymes EKG : Q wave in the inferior leads Myocardial perfusion imaging study: was done while in the OSH: it showed diminished tracer uptake in portions of the basal inferoseptal segments without significant change, following stress test there was also notation of diminished tracer uptake in portions of the brenna to mid inferior segments (findings suggestive of stress induced myocardial ischemia involving portions of the basal to mid inferior segments ). Risk factors : -Daily marijuana smoker. -DM type 2 ,last HbA1c 07/02/13 :6.8 -HTN -Hyperlipidemia : last fasting lipid panel 03/06/13 :Triglyceride 104, Cholesterol 197, HDL 55, LDL 121 -Hx of CAD S/P LHC in 03/07/12 :. Severe CAD of the mid circumflex. Chronically occluded right coronary artery. -Diet non compliant PLAN ---Telemetry ---BB ---ASA ---Statin ---Heparin gtt ---Serial cardiac enzymes LHC on 07/31/13 :The RCA is a large dominant vessel that is totally occluded in the proximal segment. The distal RCA, posterior descending artery, and posterior ventricular branches fill by robust [id number] collaterals from the LAD and LCx. Recommendations: 1) Continue aggressive risk factor modification 2) No need for intervention to RCA, given robust collaterals. Alcohol abuse 03/05/2012 03/16/2012 Overview: Drinks beer - three 24oz cans 2-3 times a day [facility] alcohol withdrawal protocol in house Advise to stop binge drinking Unstable angina 03/04/2012 03/15/2012 Overview: [facility] ( 03/04/2012 ) at [place] by Dr. Barakat LVEDP elevated LV; normal LV size, Wall motion, and sustolic function estimated VLVEF 65% LM : short/ angiographically normal LAD : diffuse MLI, mid to distal 10-25% stenosis LCx ; proximal 25 -50 % eccentric stenosis, distal diffuse MLI OM; large vessel: proximal 95-99% stenosis RCA : large/dominant vessel with proximal 100% occlusion and distal vessel filling from left to right collateral flow LHC at [facility] 03/07: 80% mid LCx stenosis, one BMS placed in mid LCx Chronically occluded RCA - ASA lifelong - Statin, BB - Plavix for at least 4 weeks - follow up with local farm machine operator as outpatient SUMMARY 03/04/2012 03/16/2012 Overview: 57 year old male with a PMH of DM, HTN, & HPL who was transferred from [facility] for further treatment of known 2 vessel CAD. Presented with chest pain, no acute change in EKG, no elevation in the cardiac enzymes, (+) nuclear stress test, and a LHC which showed OM1 95-99% stenosis and RCA 100% stenosis. Patient underwent LHC at [facility] on 03/07, which revealed severe stenosis in LCx, occluded RCA. One BMS is placed in LCx. Patient is on aspirin, Plavix, Toprol XL, Lipitor on discharge. Smoking 03/04/2012 03/04/2012 Hypertension 03/04/2012 10/06/2017 Hypertrophy of prostate with out urinary obstruction and other lower urinary tract symptoms (LUTS) 07/28/2007 03/04/2012 Obesity (BMI 30-39.9) 2020 documented as of this encounter (statuses as of 04/22/2023) [facility] History of Past illness Narrative* Problem Noted Date Diagnosed Date Resolved Date Lower urinary tract symptoms (LUTS) 12/11/2015 05/04/2018 Unstable angina 07/28/2013 09/06/2013 Overview: Atypical chest pain Negative cardiac enzymes EKG : Q wave in the inferior leads Myocardial perfusion imaging study: was done while in the OSH: it showed diminished tracer uptake in portions of the basal inferoseptal segments without significant change, following stress test there was also notation of diminished tracer uptake in portions of the brenna to mid inferior segments (findings suggestive of stress induced myocardial ischemia involving portions of the basal to mid inferior segments ). Risk factors : -Daily marijuana smoker. -DM type 2 ,last HbA1c 07/02/13 :6.8 -HTN -Hyperlipidemia : last fasting lipid panel 03/06/13 :Triglyceride 104, Cholesterol 197, HDL 55, LDL 121 -Hx of CAD S/P LHC in 03/07/12 :. Severe CAD of the mid circumflex. Chronically occluded right coronary artery. -Diet non compliant PLAN ---Telemetry ---BB ---ASA ---Statin ---Heparin gtt ---Serial cardiac enzymes LHC on 07/31/13 :The RCA is a large dominant vessel that is totally occluded in the proximal segment. The distal RCA, posterior descending artery, and posterior ventricular branches fill by robust [id number] collaterals from the LAD and LCx. Recommendations: 1) Continue aggressive risk factor modification 2) No need for intervention to RCA, given robust collaterals. Alcohol abuse 03/05/2012 03/16/2012 Overview: Drinks beer - three 24oz cans 2-3 times a day [facility] alcohol withdrawal protocol in house Advise to stop binge drinking Unstable angina 03/04/2012 03/15/2012 Overview: LHC ( 03/04/2012 ) at [place] by Dr. Barakat LVEDP elevated LV; normal LV size, Wall motion, and sustolic function estimated VLVEF 65% LM : short/ angiographically normal LAD : diffuse MLI, mid to distal 10-25% stenosis LCx ; proximal 25 -50 % eccentric stenosis, distal diffuse MLI OM; large vessel: proximal 95-99% stenosis RCA : large/dominant vessel with proximal 100% occlusion and distal vessel filling from left to right collateral flow LHC at [facility] 03/07: 80% mid LCx stenosis, one BMS placed in mid LCx Chronically occluded RCA - ASA lifelong - Statin, BB - Plavix for at least 4 weeks - follow up with local farm machine operator as outpatient SUMMARY 03/04/2012 03/16/2012 Overview: 57 year old male with a PMH of DM, HTN, & HPL who was transferred from [facility] for further treatment of known 2 vessel CAD. Presented with chest pain, no acute change in EKG, no elevation in the cardiac enzymes, (+) nuclear stress test, and a LHC which showed OM1 95-99% stenosis and RCA 100% stenosis. Patient underwent LHC at [facility] on 03/07, which revealed severe stenosis in LCx, occluded RCA. One BMS is placed in LCx. Patient is on aspirin, Plavix, Toprol XL, Lipitor on discharge. Smoking 03/04/2012 03/04/2012 Hypertension 03/04/2012 10/06/2017 Hypertrophy of prostate with out urinary obstruction and other lower urinary tract symptoms (LUTS) 07/28/2007 03/04/2012 Obesity (BMI 30-39.9) 2020 documented as of this encounter (statuses as of 04/27/2023) [facility] History of Past illness Narrative* Problem Noted Date Diagnosed Date Resolved Date Lower urinary tract symptoms (LUTS) 12/11/2015 05/04/2018 Unstable angina 07/28/2013 09/06/2013 Overview: Atypical chest pain Negative cardiac enzymes EKG : Q wave in the inferior leads Myocardial perfusion imaging study: was done while in the OSH: it showed diminished tracer uptake in portions of the basal inferoseptal segments without significant change, following stress test there was also notation of diminished tracer uptake in portions of the brenna to mid inferior segments (findings suggestive of stress induced myocardial ischemia involving portions of the basal to mid inferior segments ). Risk factors : -Daily marijuana smoker. -DM type 2 ,last HbA1c 07/02/13 :6.8 -HTN -Hyperlipidemia : last fasting lipid panel 03/06/13 :Triglyceride 104, Cholesterol 197, HDL 55, LDL 121 -Hx of CAD S/P LHC in 03/07/12 :. Severe CAD of the mid circumflex. Chronically occluded right coronary artery. -Diet non compliant PLAN ---Telemetry ---BB ---ASA ---Statin ---Heparin gtt ---Serial cardiac enzymes LHC on 07/31/13 :The RCA is a large dominant vessel that is totally occluded in the proximal segment. The distal RCA, posterior descending artery, and posterior ventricular branches fill by robust [id number] collaterals from the LAD and LCx. Recommendations: 1) Continue aggressive risk factor modification 2) No need for intervention to RCA, given robust collaterals. Alcohol abuse 03/05/2012 03/16/2012 Overview: Drinks beer - three 24oz cans 2-3 times a day [facility] alcohol withdrawal protocol in house Advise to stop binge drinking Unstable angina 03/04/2012 03/15/2012 Overview: [facility] ( 03/04/2012 ) at [place] by Dr. Barakat LVEDP elevated LV; normal LV size, Wall motion, and sustolic function estimated VLVEF 65% LM : short/ angiographically normal LAD : diffuse MLI, mid to distal 10-25% stenosis LCx ; proximal 25 -50 % eccentric stenosis, distal diffuse MLI OM; large vessel: proximal 95-99% stenosis RCA : large/dominant vessel with proximal 100% occlusion and distal vessel filling from left to right collateral flow LHC at [facility] 03/07: 80% mid LCx stenosis, one BMS placed in mid LCx Chronically occluded RCA - ASA lifelong - Statin, BB - Plavix for at least 4 weeks - follow up with local farm machine operator as outpatient SUMMARY 03/04/2012 03/16/2012 Overview: 57 year old male with a PMH of DM, HTN, & HPL who was transferred from [facility] for further treatment of known 2 vessel CAD. Presented with chest pain, no acute change in EKG, no elevation in the cardiac enzymes, (+) nuclear stress test, and a LHC which showed OM1 95-99% stenosis and RCA 100% stenosis. Patient underwent LHC at [facility] on 03/07, which revealed severe stenosis in LCx, occluded RCA. One BMS is placed in LCx. Patient is on aspirin, Plavix, Toprol XL, Lipitor on discharge. Smoking 03/04/2012 03/04/2012 Hypertension 03/04/2012 10/06/2017 Hypertrophy of prostate with out urinary obstruction and other lower urinary tract symptoms (LUTS) 07/28/2007 03/04/2012 Obesity (BMI 30-39.9) 2020 documented as of this encounter (statuses as of 05/12/2023) [facility] History of Past illness Narrative* Problem Noted Date Diagnosed Date Resolved Date Lower urinary tract symptoms (LUTS) 12/11/2015 05/04/2018 Unstable angina 07/28/2013 09/06/2013 Overview: Atypical chest pain Negative cardiac enzymes EKG : Q wave in the inferior leads Myocardial perfusion imaging study: was done while in the OSH: it showed diminished tracer uptake in portions of the basal inferoseptal segments without significant change, following stress test there was also notation of diminished tracer uptake in portions of the brenna to mid inferior segments (findings suggestive of stress induced myocardial ischemia involving portions of the basal to mid inferior segments ). Risk factors : -Daily marijuana smoker. -DM type 2 ,last HbA1c 07/02/13 :6.8 -HTN -Hyperlipidemia : last fasting lipid panel 03/06/13 :Triglyceride 104, Cholesterol 197, HDL 55, LDL 121 -Hx of CAD S/P LHC in 03/07/12 :. Severe CAD of the mid circumflex. Chronically occluded right coronary artery. -Diet non compliant PLAN ---Telemetry ---BB ---ASA ---Statin ---Heparin gtt ---Serial cardiac enzymes LHC on 07/31/13 :The RCA is a large dominant vessel that is totally occluded in the proximal segment. The distal RCA, posterior descending artery, and posterior ventricular branches fill by robust [id number] collaterals from the LAD and LCx. Recommendations: 1) Continue aggressive risk factor modification 2) No need for intervention to RCA, given robust collaterals. Alcohol abuse 03/05/2012 03/16/2012 Overview: Drinks beer - three 24oz cans 2-3 times a day [facility] alcohol withdrawal protocol in house Advise to stop binge drinking Unstable angina 03/04/2012 03/15/2012 Overview: LHC ( 03/04/2012 ) at [place] by Dr. Barakat LVEDP elevated LV; normal LV size, Wall motion, and sustolic function estimated VLVEF 65% LM : short/ angiographically normal LAD : diffuse MLI, mid to distal 10-25% stenosis LCx ; proximal 25 -50 % eccentric stenosis, distal diffuse MLI OM; large vessel: proximal 95-99% stenosis RCA : large/dominant vessel with proximal 100% occlusion and distal vessel filling from left to right collateral flow LHC at [facility] 03/07: 80% mid LCx stenosis, one BMS placed in mid LCx Chronically occluded RCA - ASA lifelong - Statin, BB - Plavix for at least 4 weeks - follow up with local farm machine operator as outpatient SUMMARY 03/04/2012 03/16/2012 Overview: 57 year old male with a PMH of DM, HTN, & HPL who was transferred from [facility] for further treatment of known 2 vessel CAD. Presented with chest pain, no acute change in EKG, no elevation in the cardiac enzymes, (+) nuclear stress test, and a LHC which showed OM1 95-99% stenosis and RCA 100% stenosis. Patient underwent LHC at [facility] on 6/11, which revealed severe stenosis in LCx, occluded RCA. One BMS is placed in LCx. Patient is on aspirin, Plavix, Toprol XL, Lipitor on discharge. Smoking 03/04/2012 03/04/2012 Hypertension 03/04/2012 10/06/2017 Hypertrophy of prostate with out urinary obstruction and other lower urinary tract symptoms (LUTS) 07/28/2007 03/04/2012 Obesity (BMI 30-39.9) 2020 documented as of this encounter (statuses as of 06/02/2023) [facility] History of Past illness Narrative* Problem Noted Date Diagnosed Date Resolved Date Lower urinary tract symptoms (LUTS) 12/11/2015 05/04/2018 Unstable angina 07/28/2013 09/06/2013 Overview: Atypical chest pain Negative cardiac enzymes EKG : Q wave in the inferior leads Myocardial perfusion imaging study: was done while in the OSH: it showed diminished tracer uptake in portions of the basal inferoseptal segments without significant change, following stress test there was also notation of diminished tracer uptake in portions of the brenna to mid inferior segments (findings suggestive of stress induced myocardial ischemia involving portions of the basal to mid inferior segments ). Risk factors : -Daily marijuana smoker. -DM type 2 ,last HbA1c 07/02/13 :6.8 -HTN -Hyperlipidemia : last fasting lipid panel 03/06/13 :Triglyceride 104, Cholesterol 197, HDL 55, LDL 121 -Hx of CAD S/P LHC in 03/07/12 :. Severe CAD of the mid circumflex. Chronically occluded right coronary artery. -Diet non compliant PLAN ---Telemetry ---BB ---ASA ---Statin ---Heparin gtt ---Serial cardiac enzymes LHC on 07/31/13 :The RCA is a large dominant vessel that is totally occluded in the proximal segment. The distal RCA, posterior descending artery, and posterior ventricular branches fill by robust [id number] collaterals from the LAD and LCx. Recommendations: 1) Continue aggressive risk factor modification 2) No need for intervention to RCA, given robust collaterals. Alcohol abuse 03/05/2012 03/16/2012 Overview: Drinks beer - three 24oz cans 2-3 times a day [facility] alcohol withdrawal protocol in house Advise to stop binge drinking Unstable angina 03/04/2012 03/15/2012 Overview: LHC ( 03/04/2012 ) at [place] by Dr. Barakat LVEDP elevated LV; normal LV size, Wall motion, and sustolic function estimated VLVEF 65% LM : short/ angiographically normal LAD : diffuse MLI, mid to distal 10-25% stenosis LCx ; proximal 25 -50 % eccentric stenosis, distal diffuse MLI OM; large vessel: proximal 95-99% stenosis RCA : large/dominant vessel with proximal 100% occlusion and distal vessel filling from left to right collateral flow LHC at [facility] 03/07: 80% mid LCx stenosis, one BMS placed in mid LCx Chronically occluded RCA - ASA lifelong - Statin, BB - Plavix for at least 4 weeks - follow up with local farm machine operator as outpatient SUMMARY 03/04/2012 03/16/2012 Overview: 57 year old male with a PMH of DM, HTN, & HPL who was transferred from [facility] for further treatment of known 2 vessel CAD. Presented with chest pain, no acute change in EKG, no elevation in the cardiac enzymes, (+) nuclear stress test, and a LHC which showed OM1 95-99% stenosis and RCA 100% stenosis. Patient underwent LHC at [facility] on 03/07, which revealed severe stenosis in LCx, occluded RCA. One BMS is placed in LCx. Patient is on aspirin, Plavix, Toprol XL, Lipitor on discharge. Smoking 03/04/2012 03/04/2012 Hypertension 03/04/2012 10/06/2017 Hypertrophy of prostate with out urinary obstruction and other lower urinary tract symptoms (LUTS) 07/28/2007 03/04/2012 Obesity (BMI 30-39.9) 2020 documented as of this encounter (statuses as of 07/09/2023) [facility] History of Past illness Narrative* Problem Noted Date Diagnosed Date Resolved Date Lower urinary tract symptoms (LUTS) 12/11/2015 05/04/2018 Unstable angina 07/28/2013 09/06/2013 Overview: Atypical chest pain Negative cardiac enzymes EKG : Q wave in the inferior leads Myocardial perfusion imaging study: was done while in the OSH: it showed diminished tracer uptake in portions of the basal inferoseptal segments without significant change, following stress test there was also notation of diminished tracer uptake in portions of the brenna to mid inferior segments (findings suggestive of stress induced myocardial ischemia involving portions of the basal to mid inferior segments ). Risk factors : -Daily marijuana smoker. -DM type 2 ,last HbA1c 07/02/13 :6.8 -HTN -Hyperlipidemia : last fasting lipid panel 03/06/13 :Triglyceride 104, Cholesterol 197, HDL 55, LDL 121 -Hx of CAD S/P LHC in 03/07/12 :. Severe CAD of the mid circumflex. Chronically occluded right coronary artery. -Diet non compliant PLAN ---Telemetry ---BB ---ASA ---Statin ---Heparin gtt ---Serial cardiac enzymes LHC on 07/31/13 :The RCA is a large dominant vessel that is totally occluded in the proximal segment. The distal RCA, posterior descending artery, and posterior ventricular branches fill by robust [id number] collaterals from the LAD and LCx. Recommendations: 1) Continue aggressive risk factor modification 2) No need for intervention to RCA, given robust collaterals. Alcohol abuse 03/05/2012 03/16/2012 Overview: Drinks beer - three 24oz cans 2-3 times a day [facility] alcohol withdrawal protocol in house Advise to stop binge drinking Unstable angina 03/04/2012 03/15/2012 Overview: [facility] ( 03/04/2012 ) at [place] by Dr. Barakat LVEDP elevated LV; normal LV size, Wall motion, and sustolic function estimated VLVEF 65% LM : short/ angiographically normal LAD : diffuse MLI, mid to distal 10-25% stenosis LCx ; proximal 25 -50 % eccentric stenosis, distal diffuse MLI OM; large vessel: proximal 95-99% stenosis RCA : large/dominant vessel with proximal 100% occlusion and distal vessel filling from left to right collateral flow LHC at [facility] 03/07: 80% mid LCx stenosis, one BMS placed in mid LCx Chronically occluded RCA - ASA lifelong - Statin, BB - Plavix for at least 4 weeks - follow up with local farm machine operator as outpatient SUMMARY 03/04/2012 03/16/2012 Overview: 57 year old male with a PMH of DM, HTN, & HPL who was transferred from [facility] for further treatment of known 2 vessel CAD. Presented with chest pain, no acute change in EKG, no elevation in the cardiac enzymes, (+) nuclear stress test, and a LHC which showed OM1 95-99% stenosis and RCA 100% stenosis. Patient underwent LHC at [facility] on 03/07, which revealed severe stenosis in LCx, occluded RCA. One BMS is placed in LCx. Patient is on aspirin, Plavix, Toprol XL, Lipitor on discharge. Smoking 03/04/2012 03/04/2012 Hypertension 03/04/2012 10/06/2017 Hypertrophy of prostate with out urinary obstruction and other lower urinary tract symptoms (LUTS) 07/28/2007 03/04/2012 Obesity (BMI 30-39.9) 2020 documented as of this encounter (statuses as of 07/27/2023) [facility] History of Past illness Narrative* Problem Noted Date Diagnosed Date Resolved Date Lower urinary tract symptoms (LUTS) 12/11/2015 05/04/2018 Unstable angina 07/28/2013 09/06/2013 Overview: Atypical chest pain Negative cardiac enzymes EKG : Q wave in the inferior leads Myocardial perfusion imaging study: was done while in the OSH: it showed diminished tracer uptake in portions of the basal inferoseptal segments without significant change, following stress test there was also notation of diminished tracer uptake in portions of the brenna to mid inferior segments (findings suggestive of stress induced myocardial ischemia involving portions of the basal to mid inferior segments ). Risk factors : -Daily marijuana smoker. -DM type 2 ,last HbA1c 07/02/13 :6.8 -HTN -Hyperlipidemia : last fasting lipid panel 03/06/13 :Triglyceride 104, Cholesterol 197, HDL 55, LDL 121 -Hx of CAD S/P LHC in 03/07/12 :. Severe CAD of the mid circumflex. Chronically occluded right coronary artery. -Diet non compliant PLAN ---Telemetry ---BB ---ASA ---Statin ---Heparin gtt ---Serial cardiac enzymes LHC on 07/31/13 :The RCA is a large dominant vessel that is totally occluded in the proximal segment. The distal RCA, posterior descending artery, and posterior ventricular branches fill by robust [id number] collaterals from the LAD and LCx. Recommendations: 1) Continue aggressive risk factor modification 2) No need for intervention to RCA, given robust collaterals. Alcohol abuse 03/05/2012 03/16/2012 Overview: Drinks beer - three 24oz cans 2-3 times a day [facility] alcohol withdrawal protocol in house Advise to stop binge drinking Unstable angina 03/04/2012 03/15/2012 Overview: LHC ( 03/04/2012 ) at [place] by Dr. Barakat LVEDP elevated LV; normal LV size, Wall motion, and sustolic function estimated VLVEF 65% LM : short/ angiographically normal LAD : diffuse MLI, mid to distal 10-25% stenosis LCx ; proximal 25 -50 % eccentric stenosis, distal diffuse MLI OM; large vessel: proximal 95-99% stenosis RCA : large/dominant vessel with proximal 100% occlusion and distal vessel filling from left to right collateral flow LHC at [facility] 03/07: 80% mid LCx stenosis, one BMS placed in mid LCx Chronically occluded RCA - ASA lifelong - Statin, BB - Plavix for at least 4 weeks - follow up with local farm machine operator as outpatient SUMMARY 03/04/2012 03/16/2012 Overview: 57 year old male with a PMH of DM, HTN, & HPL who was transferred from [facility] for further treatment of known 2 vessel CAD. Presented with chest pain, no acute change in EKG, no elevation in the cardiac enzymes, (+) nuclear stress test, and a LHC which showed OM1 95-99% stenosis and RCA 100% stenosis. Patient underwent LHC at [facility] on 03/07, which revealed severe stenosis in LCx, occluded RCA. One BMS is placed in LCx. Patient is on aspirin, Plavix, Toprol XL, Lipitor on discharge. Smoking 03/04/2012 03/04/2012 Hypertension 03/04/2012 10/06/2017 Hypertrophy of prostate with out urinary obstruction and other lower urinary tract symptoms (LUTS) 07/28/2007 03/04/2012 Obesity (BMI 30-39.9) 2020 documented as of this encounter (statuses as of 07/27/2023) [facility]03-16-2016 History of Past illness Narrative* Problem Noted Date Diagnosed Date Resolved Date Lower urinary tract symptoms (LUTS) 12/11/2015 05/04/2018 Unstable angina 07/28/2013 09/06/2013 Overview: Atypical chest pain Negative cardiac enzymes EKG : Q wave in the inferior leads Myocardial perfusion imaging study: was done while in the OSH: it showed diminished tracer uptake in portions of the basal inferoseptal segments without significant change, following stress test there was also notation of diminished tracer uptake in portions of the brenna to mid inferior segments (findings suggestive of stress induced myocardial ischemia involving portions of the basal to mid inferior segments ). Risk factors : -Daily marijuana smoker. -DM type 2 ,last HbA1c 07/02/13 :6.8 -HTN -Hyperlipidemia : last fasting lipid panel 03/06/13 :Triglyceride 104, Cholesterol 197, HDL 55, LDL 121 -Hx of CAD S/P LHC in 03/07/12 :. Severe CAD of the mid circumflex. Chronically occluded right coronary artery. -Diet non compliant PLAN ---Telemetry ---BB ---ASA ---Statin ---Heparin gtt ---Serial cardiac enzymes LHC on 07/31/13 :The RCA is a large dominant vessel that is totally occluded in the proximal segment. The distal RCA, posterior descending artery, and posterior ventricular branches fill by robust [id number] collaterals from the LAD and LCx. Recommendations: 1) Continue aggressive risk factor modification 2) No need for intervention to RCA, given robust collaterals. Alcohol abuse 03/05/2012 03/16/2012 Overview: Drinks beer - three 24oz cans 2-3 times a day [facility] alcohol withdrawal protocol in house Advise to stop binge drinking Unstable angina 03/04/2012 03/15/2012 Overview: LHC ( 03/04/2012 ) at [place] by Dr. Moodispaw LVEDP elevated LV; normal LV size, Wall motion, and sustolic function estimated VLVEF 65% LM : short/ angiographically normal LAD : diffuse MLI, mid to distal 10-25% stenosis LCx ; proximal 25 -50 % eccentric stenosis, distal diffuse MLI OM; large vessel: proximal 95-99% stenosis RCA : large/dominant vessel with proximal 100% occlusion and distal vessel filling from left to right collateral flow LHC at [facility] 03/07: 80% mid LCx stenosis, one BMS placed in mid LCx Chronically occluded RCA - ASA lifelong - Statin, BB - Plavix for at least 4 weeks - follow up with local farm machine operator as outpatient SUMMARY 03/04/2012 03/16/2012 Overview: 57 year old male with a PMH of DM, HTN, & HPL who was transferred from [facility] for further treatment of known 2 vessel CAD. Presented with chest pain, no acute change in EKG, no elevation in the cardiac enzymes, (+) nuclear stress test, and a LHC which showed OM1 95-99% stenosis and RCA 100% stenosis. Patient underwent LHC at [facility] on 03/07, which revealed severe stenosis in LCx, occluded RCA. One BMS is placed in LCx. Patient is on aspirin, Plavix, Toprol XL, Lipitor on discharge. Smoking 03/04/2012 03/04/2012 Hypertension 03/04/2012 10/06/2017 Hypertrophy of prostate with out urinary obstruction and other lower urinary tract symptoms (LUTS) 07/28/2007 03/04/2012 Obesity (BMI 30-39.9) 2020 documented as of this encounter (statuses as of 08/01/2023) [facility] History of Past illness Narrative* Problem Noted Date Diagnosed Date Resolved Date Lower urinary tract symptoms (LUTS) 12/11/2015 05/04/2018 Unstable angina 07/28/2013 09/06/2013 Overview: Atypical chest pain Negative cardiac enzymes EKG : Q wave in the inferior leads Myocardial perfusion imaging study: was done while in the OSH: it showed diminished tracer uptake in portions of the basal inferoseptal segments without significant change, following stress test there was also notation of diminished tracer uptake in portions of the brenna to mid inferior segments (findings suggestive of stress induced myocardial ischemia involving portions of the basal to mid inferior segments ). Risk factors : -Daily marijuana smoker. -DM type 2 ,last HbA1c 07/02/13 :6.8 -HTN -Hyperlipidemia : last fasting lipid panel 03/06/13 :Triglyceride 104, Cholesterol 197, HDL 55, LDL 121 -Hx of CAD S/P LHC in 03/07/12 :. Severe CAD of the mid circumflex. Chronically occluded right coronary artery. -Diet non compliant PLAN ---Telemetry ---BB ---ASA ---Statin ---Heparin gtt ---Serial cardiac enzymes LHC on 07/31/13 :The RCA is a large dominant vessel that is totally occluded in the proximal segment. The distal RCA, posterior descending artery, and posterior ventricular branches fill by robust [id number] collaterals from the LAD and LCx. Recommendations: 1) Continue aggressive risk factor modification 2) No need for intervention to RCA, given robust collaterals. Alcohol abuse 03/05/2012 03/16/2012 Overview: Drinks beer - three 24oz cans 2-3 times a day [facility] alcohol withdrawal protocol in house Advise to stop binge drinking Unstable angina 03/04/2012 03/15/2012 Overview: [facility] ( 03/04/2012 ) at [place] by Dr. Barakat LVEDP elevated LV; normal LV size, Wall motion, and sustolic function estimated VLVEF 65% LM : short/ angiographically normal LAD : diffuse MLI, mid to distal 10-25% stenosis LCx ; proximal 25 -50 % eccentric stenosis, distal diffuse MLI OM; large vessel: proximal 95-99% stenosis RCA : large/dominant vessel with proximal 100% occlusion and distal vessel filling from left to right collateral flow LHC at [facility] 03/07: 80% mid LCx stenosis, one BMS placed in mid LCx Chronically occluded RCA - ASA lifelong - Statin, BB - Plavix for at least 4 weeks - follow up with local farm machine operator as outpatient SUMMARY 03/04/2012 03/16/2012 Overview: 57 year old male with a PMH of DM, HTN, & HPL who was transferred from [facility] for further treatment of known 2 vessel CAD. Presented with chest pain, no acute change in EKG, no elevation in the cardiac enzymes, (+) nuclear stress test, and a LHC which showed OM1 95-99% stenosis and RCA 100% stenosis. Patient underwent LHC at [facility] on 03/07, which revealed severe stenosis in LCx, occluded RCA. One BMS is placed in LCx. Patient is on aspirin, Plavix, Toprol XL, Lipitor on discharge. Smoking 03/04/2012 03/04/2012 Hypertension 03/04/2012 10/06/2017 Hypertrophy of prostate with out urinary obstruction and other lower urinary tract symptoms (LUTS) 07/28/2007 03/04/2012 Obesity (BMI 30-39.9) 2020 documented as of this encounter (statuses as of 08/01/2023) [facility] History of Past illness Narrative* Problem Noted Date Diagnosed Date Resolved Date Lower urinary tract symptoms (LUTS) 12/11/2015 05/04/2018 Unstable angina 07/28/2013 09/06/2013 Overview: Atypical chest pain Negative cardiac enzymes EKG : Q wave in the inferior leads Myocardial perfusion imaging study: was done while in the OSH: it showed diminished tracer uptake in portions of the basal inferoseptal segments without significant change, following stress test there was also notation of diminished tracer uptake in portions of the brenna to mid inferior segments (findings suggestive of stress induced myocardial ischemia involving portions of the basal to mid inferior segments ). Risk factors : -Daily marijuana smoker. -DM type 2 ,last HbA1c 07/02/13 :6.8 -HTN -Hyperlipidemia : last fasting lipid panel 03/06/13 :Triglyceride 104, Cholesterol 197, HDL 55, LDL 121 -Hx of CAD S/P LHC in 03/07/12 :. Severe CAD of the mid circumflex. Chronically occluded right coronary artery. -Diet non compliant PLAN ---Telemetry ---BB ---ASA ---Statin ---Heparin gtt ---Serial cardiac enzymes LHC on 07/31/13 :The RCA is a large dominant vessel that is totally occluded in the proximal segment. The distal RCA, posterior descending artery, and posterior ventricular branches fill by robust [id number]-lufkt collaterals from the LAD and LCx. Recommendations: 1) Continue aggressive risk factor modification 2) No need for intervention to RCA, given robust collaterals. Alcohol abuse 03/05/2012 03/16/2012 Overview: Drinks beer - three 24oz cans 2-3 times a day [facility] alcohol withdrawal protocol in house Advise to stop binge drinking Unstable angina 03/04/2012 03/15/2012 Overview: LHC ( 03/04/2012 ) at [place] by Dr. Barakat LVEDP elevated LV; normal LV size, Wall motion, and sustolic function estimated VLVEF 65% LM : short/ angiographically normal LAD : diffuse MLI, mid to distal 10-25% stenosis LCx ; proximal 25 -50 % eccentric stenosis, distal diffuse MLI OM; large vessel: proximal 95-99% stenosis RCA : large/dominant vessel with proximal 100% occlusion and distal vessel filling from left to right collateral flow LHC at [facility] 03/07: 80% mid LCx stenosis, one BMS placed in mid LCx Chronically occluded RCA - ASA lifelong - Statin, BB - Plavix for at least 4 weeks - follow up with local farm machine operator as outpatient SUMMARY 03/04/2012 03/16/2012 Overview: 57 year old male with a PMH of DM, HTN, & HPL who was transferred from [facility] for further treatment of known 2 vessel CAD. Presented with chest pain, no acute change in EKG, no elevation in the cardiac enzymes, (+) nuclear stress test, and a LHC which showed OM1 95-99% stenosis and RCA 100% stenosis. Patient underwent LHC at [facility] on 03/07, which revealed severe stenosis in LCx, occluded RCA. One BMS is placed in LCx. Patient is on aspirin, Plavix, Toprol XL, Lipitor on discharge. Smoking 03/04/2012 03/04/2012 Hypertension 03/04/2012 10/06/2017 Hypertrophy of prostate with out urinary obstruction and other lower urinary tract symptoms (LUTS) 07/28/2007 03/04/2012 Obesity (BMI 30-39.9) 2020 documented as of this encounter (statuses as of 08/07/2023) [facility] History of Past illness Narrative* Problem Noted Date Diagnosed Date Resolved Date Lower urinary tract symptoms (LUTS) 12/11/2015 05/04/2018 Unstable angina 07/28/2013 09/06/2013 Overview: Atypical chest pain Negative cardiac enzymes EKG : Q wave in the inferior leads Myocardial perfusion imaging study: was done while in the OSH: it showed diminished tracer uptake in portions of the basal inferoseptal segments without significant change, following stress test there was also notation of diminished tracer uptake in portions of the brenna to mid inferior segments (findings suggestive of stress induced myocardial ischemia involving portions of the basal to mid inferior segments ). Risk factors : -Daily marijuana smoker. -DM type 2 ,last HbA1c 07/02/13 :6.8 -HTN -Hyperlipidemia : last fasting lipid panel 03/06/13 :Triglyceride 104, Cholesterol 197, HDL 55, LDL 121 -Hx of CAD S/P LHC in 03/07/12 :. Severe CAD of the mid circumflex. Chronically occluded right coronary artery. -Diet non compliant PLAN ---Telemetry ---BB ---ASA ---Statin ---Heparin gtt ---Serial cardiac enzymes C on 07/31/13 :The RCA is a large dominant vessel that is totally occluded in the proximal segment. The distal RCA, posterior descending artery, and posterior ventricular branches fill by robust [id number]-[id number] collaterals from the LAD and LCx. Recommendations: 1) Continue aggressive risk factor modification 2) No need for intervention to RCA, given robust collaterals. Alcohol abuse 03/05/2012 03/16/2012 Overview: Drinks beer - three 24oz cans 2-3 times a day [facility] alcohol withdrawal protocol in house Advise to stop binge drinking Unstable angina 03/04/2012 03/15/2012 Overview: [facility] ( 03/04/2012 ) at [place] by Dr. Barakat LVEDP elevated LV; normal LV size, Wall motion, and sustolic function estimated VLVEF 65% LM : short/ angiographically normal LAD : diffuse MLI, mid to distal 10-25% stenosis LCx ; proximal 25 -50 % eccentric stenosis, distal diffuse MLI OM; large vessel: proximal 95-99% stenosis RCA : large/dominant vessel with proximal 100% occlusion and distal vessel filling from left to right collateral flow LHC at [facility] 03/07: 80% mid LCx stenosis, one BMS placed in mid LCx Chronically occluded RCA - ASA lifelong - Statin, BB - Plavix for at least 4 weeks - follow up with local farm machine operator as outpatient SUMMARY 03/04/2012 03/16/2012 Overview: 57 year old male with a PMH of DM, HTN, & HPL who was transferred from [facility] for further treatment of known 2 vessel CAD. Presented with chest pain, no acute change in EKG, no elevation in the cardiac enzymes, (+) nuclear stress test, and a LHC which showed OM1 95-99% stenosis and RCA 100% stenosis. Patient underwent LHC at [facility] on 03/07, which revealed severe stenosis in LCx, occluded RCA. One BMS is placed in LCx. Patient is on aspirin, Plavix, Toprol XL, Lipitor on discharge. Smoking 03/04/2012 03/04/2012 Hypertension 03/04/2012 10/06/2017 Hypertrophy of prostate with out urinary obstruction and other lower urinary tract symptoms (LUTS) 07/28/2007 03/04/2012 Obesity (BMI 30-39.9) 2020 documented as of this encounter (statuses as of 08/26/2023) [facility] History of Past illness Narrative* Problem Noted Date Diagnosed Date Resolved Date Lower urinary tract symptoms (LUTS) 12/11/2015 05/04/2018 Unstable angina 07/28/2013 09/06/2013 Overview: Atypical chest pain Negative cardiac enzymes EKG : Q wave in the inferior leads Myocardial perfusion imaging study: was done while in the OSH: it showed diminished tracer uptake in portions of the basal inferoseptal segments without significant change, following stress test there was also notation of diminished tracer uptake in portions of the brenna to mid inferior segments (findings suggestive of stress induced myocardial ischemia involving portions of the basal to mid inferior segments ). Risk factors : -Daily marijuana smoker. -DM type 2 ,last HbA1c 07/02/13 :6.8 -HTN -Hyperlipidemia : last fasting lipid panel 03/06/13 :Triglyceride 104, Cholesterol 197, HDL 55, LDL 121 -Hx of CAD S/P LHC in 03/07/12 :. Severe CAD of the mid circumflex. Chronically occluded right coronary artery. -Diet non compliant PLAN ---Telemetry ---BB ---ASA ---Statin ---Heparin gtt ---Serial cardiac enzymes LHC on 07/31/13 :The RCA is a large dominant vessel that is totally occluded in the proximal segment. The distal RCA, posterior descending artery, and posterior ventricular branches fill by robust [id number] collaterals from the LAD and LCx. Recommendations: 1) Continue aggressive risk factor modification 2) No need for intervention to RCA, given robust collaterals. Alcohol abuse 03/05/2012 03/16/2012 Overview: Drinks beer - three 24oz cans 2-3 times a day [facility] alcohol withdrawal protocol in house Advise to stop binge drinking Unstable angina 03/04/2012 03/15/2012 Overview: LHC ( 03/04/2012 ) at [place] by Dr. Barakat LVEDP elevated LV; normal LV size, Wall motion, and sustolic function estimated VLVEF 65% LM : short/ angiographically normal LAD : diffuse MLI, mid to distal 10-25% stenosis LCx ; proximal 25 -50 % eccentric stenosis, distal diffuse MLI OM; large vessel: proximal 95-99% stenosis RCA : large/dominant vessel with proximal 100% occlusion and distal vessel filling from left to right collateral flow LHC at [facility] 03/07: 80% mid LCx stenosis, one BMS placed in mid LCx Chronically occluded RCA - ASA lifelong - Statin, BB - Plavix for at least 4 weeks - follow up with local farm machine operator as outpatient SUMMARY 03/04/2012 03/16/2012 Overview: 57 year old male with a PMH of DM, HTN, & HPL who was transferred from [facility] for further treatment of known 2 vessel CAD. Presented with chest pain, no acute change in EKG, no elevation in the cardiac enzymes, (+) nuclear stress test, and a LHC which showed OM1 95-99% stenosis and RCA 100% stenosis. Patient underwent LHC at [facility] on 03/07, which revealed severe stenosis in LCx, occluded RCA. One BMS is placed in LCx. Patient is on aspirin, Plavix, Toprol XL, Lipitor on discharge. 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 Essential hypertension chron ic Presence of stent in coronary artery March, chronic Pure hypercholesterolemia [facility] Work Phone: 1(306) 244-608807-01-2012 Evaluation note* Diagnosis Onset Date Resolution Status Leg edema, left acute 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 Essential hypertension chron ic Presence of stent in coronary artery March, chronic Pure hypercholesterolemia [facility] 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 Essential hypertension chron ic Presence of stent in coronary artery March, chronic Pure hypercholesterolemia [facility] Work Phone: [phone]) 255-542907-01-2012 Evaluation note* Diagnosis Onset Date Resolution Status 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 Grant Krause MD Status:R EG ER Location: ED HPI HPI - URI History of Present Illness Chief Complaint: Cold Sx Narrative Narrative: Male with history of COPD presenting with cough, cold symptoms. He states he had some rhinorrhea and a cough. Mild sputum production. No fevers or chills. No nausea or vomiting. Patient states has been ill for about 5 days. He stateshe came to the ER today to get a COVID test. ROS ROS ED Constitutional Constitutional ED: Denies chills, fever(s) or sweats Eyes Eyes: Denies blurry vision or change in vision ENT ENT ED: Reports rhinorrhea; Denies ear pain or sore throat Cardiovascular Cardiovascular: Denies chest pain, palpitations or racing heartbeat Respiratory/Chest Respiratory/Chest: Reports cough; Denies dyspnea or sputum Gastrointestinal Gastrointestinal: Denies abdominal pain, constipation, diarrhea, nausea or vomiting Genitourinary Genitourinary ED: Denies dysuria, hematuria or urinary frequency Musculoskeletal Musculoskeletal: Denies arthralgias, myalgias or neck pain Integumentary Denies abscess, Abrasions or rash Neurologic Neurologic: Denies headache(s), paresthesias or weakness Psychiatric Psychiatric: Denies anxiety, depression, suicidal ideation or suicidal thoughts Endocrine Endocrinology: Denies polydipsia or polyuria PFSH PFSH Medical History 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 Chest pain Essential hypertension Hyperlipidemia Hypertension [place] on CPAP Presence of stent in coronary artery (~04/05/12) Pure hypercholesterolemia Type II diabetes mellitus Home Medications aspirin 81 mg chewable tablet 81 mg PO DAILY@0800 07/20/15 [History Last Taken 05/26/22] nitroglycerin 0.4 mg sublingual tablet 0.4 mg sublingual Q5M PRN Chest Pain #25 tabs 07/23/15 [Rx Last Taken 01/03/19] tamsulosin 0.4 mg capsule 0.4 mg PO DAILY 09/08/16 [History Last Taken 01/03/19] fenofibrate 160 mg tablet 160 mg PO DAILY 09/10/16 [History Last Taken 01/03/19] sildenafil 50 mg tablet (Viagra) 50 mg PO DAILY PRN sexual activity 03/25/20 [History Last Taken Unknown] albuterol sulfate 90 mcg/actuation aerosol inhaler (ProAir HFA) 2 puff inhalation Q6H PRN Shortness Of Breath Or Wheezing 10/30/20 [History Last Taken Unknown] lisinopril 10 mg tablet 10 mg PO DAILY 10/30/20 [History Last Taken 05/26/22] metoprolol tartrate 25 mg tablet 25 mg PO BID 05/08/21 [History Last Taken 05/26/22] empagliflozin 25 mg tablet (Jardiance) 25 mg PO DAILY 12/04/21 [History Last Taken Unknown] metformin 500 mg tablet 1,000 mg PO BID 12/04/21 [History Last Taken 05/25/22] rosuvastatin 40 mg tablet 40 mg PO DAILY 12/04/21 [History Last Taken Unknown] ranolazine 1,000 mg tablet,extended release,12 hr (Ranexa) 1,000 mg PO BID #180 tabs 05/26/22 [Rx Last Taken Unknown] gabapentin 100 mg capsule 100 mg PO DAILY PRN 05/14/23 [History Last Taken Unknown] glipizide 2.5 mg tablet, extended release 24 hr 2.5 mg PO DAILY 05/14/23 [History Last Taken Unknown] Allergy/AdvReac Type Severity Reaction Status Date / Time No Known Allergies Allergy Verified 06/09/23 11:34 Family History Sister Hypertension Surgical History History of left heart catheterization (LHC) (~05/26/22) History of umbilical hernia repair Presence of coronary angioplasty implant and graft (~04/05/12) Social History Smoking Status: Never smoker alcohol intake: current alcohol intake frequency: a few times a week Alcohol type: beer substance use type: marijuana caffeine: Yes EXAM Physical Exam Const Vital Signs: 06/09/23 11:34 06/09/23 11:57 Temperature 97.2 F L Temperature Source Temporal Pulse Rate 68 Respiratory Rate 18 Respiratory Effort Normal Non-Labored Respiratory Pattern Normal Blood Pressure 131/81 H Blood Pressure Mean 97 Pulse Ox 96 Oxygen Delivery Method Room Air Positive well nourished General Appearance ED: NAD; Negative for pallor HEENT Reports moist mucous membranes normocephalic and atraumatic Eyes PERRL and EOMs intact bilaterally Resp normal respiratory effort and clear to auscultation bilaterally Auscultation: Negative for rales, rhonchi or wheezes Cardio Rate: regular rate Rhythm: regular rhythm Extremity normal to inspection Neuro oriented x3 and CN's II-XII intact bilaterally Sensorium / Orientation: alert Motor Exam: strength 5/5 throughout Psych mental status grossly normal Skin General Skin Exam: Negative for jaundice or pallor MDM MDM MDM Narrative Medical decision making narrative: Senting with URI symptoms for the last 5 days. Lungs are clear to auscultation bilaterally. Good rate and rhythm. Vital signs are stable he is afebrile. Is not hypoxic, tachypneic. Patient requested COVID test. Discussed with the patient that he is already been having symptoms for 5 days and this would not change the course of treatment but he still wants this. Flu are negative. Patient counseled on return precautions. I feel he stable for discharge at thistime. Impression: 1. Viral syndrome Lab Data Attestation: I reviewed the patient's lab results. Discharge Plan Triage Chief Complaint: Cold Sx ED Provider: Garry Warren Dx/Rx/DC Orders Instructions: ED Pharyngitis, Viral Prescriptions: No Action sildenafil [Viagra] 50 mg tablet 50 mg PO DAILY PRN (Reason: sexual activity) lisinopril 10 mg tablet 10 mg PO DAILY albuterol sulfate [ProAir HFA] 90 mcg/actuation HFA aerosol inhaler 2 puff INHALATION Q6H PRN (Reason: Shortness Of Breath Or Wheezing) rosuvastatin 40 mg tablet 40 mg PO DAILY Jardiance 25 mg tablet 25 mg PO DAILY glipizide 2.5 mg tablet extended release 24hr 2.5 mg PO DAILY Patient Comments: Take 1 tablet by mouth once daily. gabapentin 100 mg capsule 100 mg PO DAILY PRN aspirin 81 MG tablet,chewable 81 mg PO DAILY@0800 Patient Comments: antiplatelet nitroglycerin 0.4 MG tablet 0.4 mg SUBLINGUAL Q5M PRN (Reason: Chest Pain) Qty: 25 0RF Patient Comments: CHEST PAIN tamsulosin 0.4 MG capsule 0.4 mg PO DAILY fenofibrate 160 MG tablet 160 mg PO DAILY metoprolol tartrate 25 mg tablet 25 mg PO BID metformin 500 mg tablet 1,000 mg PO BID ranolazine [Ranexa] 1,000 mg tablet extended release 12 hr 1,000 mg PO BID Qty: 180 4RF Primary Care Provider: Grant Krause Referrals: Grant Krause MD [Primary Care Provider] - Disposition Disposition: Home, Self Care What to do if you have Problems For any increased pain, shortness of breath, bleeding, nausea or vomiting, chestpain, or any unexpected problems, contact your Primary Care Provider. Call [facility] ([phone]) or report to the closest Emergency Room. Call 911 if necessary. 06/09/23 1255 <Electronically signed by Garry Warren DO> Cosigner Signature (if applicable): CC: Dr. Grant Krause MD ~ Signed [facility] Work Phone: Evaluation note* Diagnosis Erectile dysfunction, unspecified erectile dysfunction type [facility] Diagnosis Chronic pain of left knee- Primary Pain in joint, lower leg Primary osteoarthritis of left knee Primary localized osteoarthrosis, lower leg [facility] Diagnosis Bronchitis with bronchospasm Bronchitis, not specified as acute or chronic [facility] Diagnosis Mixed hyperlipidemia [facility] Diagnosis Wheezing [facility] Diagnosis Controlled type 2 diabetes mellitus without complication, without long-term current use of insulin (HCC) [facility] Diagnosis Erectile dysfunction, unspecified erectile dysfunction type [facility] Diagnosis Oral dyskinesia- Primary Orofacial dyskinesia Coronary artery disease involving squaxin coronary artery of squaxin heart without angina pectoris Stented coronary artery Postsurgical percutaneous transluminal coronary angioplasty status Primary osteoarthritis of left knee Primary localized osteoarthrosis, lower leg [facility] Diagnosis Mixed hyperlipidemia Erectile dysfunction, unspecified erectile dysfunction type [facility] Diagnosis Controlled type 2 diabetes mellitus without complication, without long-term current use of insulin (HCC) [facility] Diagnosis Coronary artery disease involving squaxin coronary artery of squaxin heart without angina pectoris [facility] Diagnosis History of colonic polyps- Primary Personal history of colonic polyps [facility] Diagnosis Special screening for malignant neoplasms, colon [facility] Diagnosis Coronary artery disease involving squaxin coronary artery of squaxin heart without angina pectoris- Primary Erectile dysfunction, unspecified erectile dysfunction type [facility]* Diagnosis Controlled type 2 diabetes mellitus without complication, without long-term current use of insulin (HCC) [facility]* Diagnosis Medicare annual wellness visit, initial- Primary Routine general medical examination at a [facility] facility Oral dyskinesia Orofacial dyskinesia documented [facility]* Diagnosis Erectile dysfunction, unspecified erectile dysfunction type Mixed hyperlipidemia [facility] Diagnosis Primary osteoarthritis of left knee- Primary Primary localized osteoarthrosis, lower leg [facility]* Diagnosis Left knee pain, unspecified chronicity- Primary [facility]* Diagnosis Diabetic mononeuropathy associated with diabetes mellitus due to underlying condition (HCC)- Primary Acquired hallux valgus, unspecified laterality Onychomycosis Dermatophytosis of nail Pain in toe of left foot Pain in limb Pain in toe of right foot Pain in limb [facility] Diagnosis Primary osteoarthritis of left knee- Primary Primary localized osteoarthrosis, lower leg [facility]* Diagnosis Wheezing [facility]* Diagnosis Onset Date Resolution Status 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 Essential hypertension chron ic Pure hypercholesterolemia ch ronic Tinnitus [facility] Work Phone: Evaluation note* Diagnosis Coronary artery disease involving squaxin coronary artery of squaxin heart without angina pectoris [facility]* Diagnosis Onychomycosis- Primary Dermatophytosis of nail Pain in toe of left foot Pain in limb Pain in toe of right foot Pain in limb Diabetic polyneuropathy associated with diabetes mellitus due to underlying condition (HCC) Acquired hallux valgus, unspecified laterality Hallux valgus of left foot [facility]* Diagnosis Mixed hyperlipidemia [facility]* Diagnosis Left knee pain, unspecified chronicity [facility] Diagnosis Tubular adenoma of colon- Primary Benign neoplasm of colon History of colonic polyps Personal history of colonic polyps [facility] Diagnosis History of colonic polyps- Primary Personal history of colonic polyps [facility] Diagnosis Screening for colon cancer- Primary Special screening for malignant neoplasms, colon History of colonic polyps Personal history of colonic polyps documented [facility]* Diagnosis Coronary artery disease involving squaxin coronary artery of squaxin heart without angina pectoris [facility] Diagnosis Primary osteoarthritis of left knee- Primary Primary localized osteoarthrosis, lower leg [facility]* Diagnosis Controlled type 2 diabetes mellitus without complication, without long-term current use of insulin (HCC) [facility] Diagnosis Onset Date Resolution Status Bilateral lower extremity edema chronic Coronary artery disease 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 Dyslipidemia chronic Erectile dysfunction chronic Essential hypertension chron ic Obesity (BMI 30.0-34.9) 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 ALBAN on CPAP chronic Presence of stent in coronary artery March, chronic Type II diabetes mellitus [facility] Work Phone: Evaluation note* Diagnosis Medicare annual wellness visit, subsequent- Primary Routine general medical examination at a health care facility Renal insufficiency Unspecified disorder of kidney and ureter [facility] Diagnosis Primary osteoarthritis of left knee- Primary Primary localized osteoarthrosis, lower leg [facility]* Diagnosis Patient request for diagnostic testing- Primary Other specified examination [facility] Diagnosis Onychomycosis- Primary Dermatophytosis of nail Pain in toe of left foot Pain in limb Pain in toe of right foot Pain in limb Diabetic polyneuropathy associated with type 2 diabetes mellitus (HCC) Acquired hallux valgus, unspecified laterality Hallux valgus of left foot [facility] Diagnosis Oral dyskinesia Orofacial dyskinesia [facility]* Diagnosis Erectile dysfunction, unspecified erectile dysfunction type [facility]* Diagnosis Erectile dysfunction, unspecified erectile dysfunction type [facility] Diagnosis Mixed hyperlipidemia [facility] Diagnosis Primary osteoarthritis of left knee- Primary Primary localized osteoarthrosis, lower leg [facility] Diagnosis Fall, initial encounter- Primary Mixed hyperlipidemia Encounter for immunization Need for other specified prophylactic vaccination against single bacterial disease Type 2 diabetes mellitus with stage 3a chronic kidney disease, without long-term current use of insulin (HCC) Coronary artery disease involving squaxin coronary artery of squaxin heart without angina pectoris Oral dyskinesia Orofacial dyskinesia [facility]* Diagnosis Wheezing [facility]* Diagnosis Onychomycosis- Primary Dermatophytosis of nail Pain in toe of left foot Pain in limb Pain in toe of right foot Pain in limb Diabetic polyneuropathy associated with type 2 diabetes mellitus (HCC) Acquired hallux valgus, unspecified laterality [facility] Diagnosis Chronic pain of left knee Pain in joint, lower leg [facility]* Diagnosis Chest pain, unspecified type- Primary Coronary artery disease involving squaxin coronary artery of squaxin heart without angina pectoris Type 2 diabetes mellitus with stage 3a chronic kidney disease, without long-term current use of insulin (HCC) Mixed hyperlipidemia [facility] Diagnosis Acute cough- Primary [facility]* Diagnosis Erectile dysfunction, unspecified erectile dysfunction type [facility]* Diagnosis Coronary artery disease involving squaxin coronary artery of squaxin heart without angina pectoris [facility] Diagnosis Seborrheic keratosis- Primary Other seborrheic keratosis Controlled type 2 diabetes mellitus without complication, without long-term current use of insulin (HCC) Mixed hyperlipidemia Oral dyskinesia Orofacial dyskinesia [facility]* Diagnosis Primary osteoarthritis of left knee- Primary Primary localized osteoarthrosis, lower leg [facility] Diagnosis Wheezing [facility] Diagnosis ALBAN on CPAP- Primary Obstructive sleep apnea (adult) (pediatric) Controlled type 2 diabetes mellitus without complication, without long-term current use of insulin (HCC) BPH with obstruction/lower urinary tract symptoms Hypertrophy of prostate with urinary obstruction and other lower urinary tract symptoms (LUTS) Essential hypertension Unspecified essential hypertension [facility]* Diagnosis Onychomycosis- Primary Dermatophytosis of nail Pain in toe of left foot Pain in limb Pain in toe of right foot Pain in limb Diabetic polyneuropathy associated with type 2 diabetes mellitus (HCC) [facility] Diagnosis ALBAN on CPAP- Primary Obstructive sleep apnea (adult) (pediatric) documented [facility]* Diagnosis Primary osteoarthritis of left knee- Primary Primary localized osteoarthrosis, lower leg documented [facility]* Diagnosis BPH with obstruction/lower urinary tract symptoms Hypertrophy of prostate with urinary obstruction and other lower urinary tract symptoms (LUTS) [facility]* Diagnosis Erectile dysfunction, unspecified erectile dysfunction type documented in [facility]* Diagnosis Medicare annual wellness visit, subsequent- Primary Routine general medical examination at a health care facility Oral dyskinesia Orofacial dyskinesia Type 2 diabetes mellitus with stage 3a chronic kidney disease, without long-term current use of insulin ([facility]) Cognitive deficits Unspecified persistent mental disorders due to conditions classified elsewhere Essential hypertension Unspecified essential hypertension Encounter for screening examination for other mental health and behavioral disorders Screening for depression documented in this [facility]* Diagnosis Primary osteoarthritis of left knee- Primary Primary localized osteoarthrosis, lower leg documented [facility]* Diagnosis Cognitive impairment, mild, so stated- Primary Mild cognitive impairment, so stated Cognitive deficits Unspecified persistent mental disorders due to conditions classified elsewhere documented in this encounter [facility]No assessment [facility] Work Phone: Evaluation note* Diagnosis Onychomycosis- Primary Dermatophytosis of nail Pain in toe of left foot Pain in limb Pain in toe of right foot Pain in limb Diabetic polyneuropathy associated with type 2 diabetes mellitus (HCC) Acquired hallux valgus of right foot Hallux valgus (acquired) [facility] Work Phone: Hospital Discharge instructions Additional Instructions COVID-positive. Take medication as provided. Hold your Ranexa and your Flomax while taking this medication. You may want to hold your rosuvastatin to prevent possible increasing myalgias for up to 3 days.. Monitor your pulse oximeter. Return if any dyspnea with pulse ox less than 88%.[facility] Work Phone: Hospital Discharge instructionsWOhio[facility] Work Phone: Reason for referral (narrative)* Outpatient Procedure (Routine) - Authorized Specialty Diagnoses / Procedures Referred By Contac t Referred To Contact [facility] Diagnoses History of colonic polyps Procedures COLONOSCOPY SCREENING COLONOSCOPY FLX DX W/COLLJ SPEC WHEN Madelin Alegria MD [address] [facility] [place] [address] [facility] [address] [place] [address] Referral ID Status Reason Start Date Expiration Date Visits Requested Visits Authorized [id number] Authorized Auto-Generat ed Referral 2 10/23/2022 1 1 [facility] for referral (narrative)* Diagnostic Procedure Only (Routine) - Pending Review Specialty Diagnoses / Procedures Referred By Contac t Referred To Contact [facility] Diagnoses Left knee pain, unspecified chronicity Procedures XR KNEE GENERAL 4V AP BOTH/PA BOTH/LAT/MERC LEFT RADIOLOGIC EXAM KNEE COMPLETE 4/MORE VIEWS Nilda Kim PA-C [address] [place] [address] [facility] Referral ID Status Reason Start Date Expiration Date Visits Requested Visits Authorized [id number] Pending Review Auto-Generat ed Referral 04/13/2023 05/12/2024 1 1 [facility] for referral (narrative)* Diagnostic Procedure Only (Routine) - Closed Specialty Diagnoses / Procedures Referred By Contac t Referred To Contact [facility] IM[facility] Diagnoses Left knee pain, unspecified chronicity Procedures XR KNEE GENERAL 4V AP BOTH/PA BOTH/LAT/MERC LEFT RADIOLOGIC EXAM KNEE COMPLETE 4/MORE VIEWS Nilda Kim PA-C [address] [place] [address] [facility] [address] Referral ID Status Reason Start Date Expiration Date V isits Requested Visits Authorized [id number] Closed Auto-Generate d Referral 04/13/2023 05/12/2024 1 1 [facility] for referral (narrative)* Outpatient Procedure (Routine) - Closed Specialty Diagnoses / Procedures Referred By Contac t Referred To Contact [facility] Diagnoses History of colonic polyps Procedures COLONOSCOPY SCREENING COLONOSCOPY FLX DX W/COLLJ SPEC WHEN Madelin Alegria MD [address] [address] [facility] [address] [place] [address] Referral ID Status Reason Start Date Expiration Date V isits Requested Visits Authorized [id number] Closed Auto-Generate d Referral 09/23/2022 10/23/2022 1 1 [facility] for referral (narrative)* Outpatient Procedure (Routine) - Pending Review Specialty Diagnoses / Procedures Referred By Contac t Referred To Contact [facility] Diagnoses History of colonic polyps Procedures COLONOSCOPY SCREENING COLONOSCOPY FLX DX W/COLLJ SPEC WHEN Madelin Alegria MD [address] [place] [address] [facility] [address] [place] [address] Referral ID Status Reason Start Date Expiration Date Visits Requested Visits Authorized [id number] Pending Review Auto-Generat ed Referral 08/04/2023 08/04/2024 1 1 [facility] for referral (narrative)* Outpatient Procedure (Routine) - Closed Specialty Diagnoses / Procedures Referred By Contac t Referred To Contact [facility] Diagnoses History of colonic polyps Procedures COLONOSCOPY SCREENING COLONOSCOPY FLX DX W/COLLJ SPEC WHEN Madelin Alegria MD [address] [facility] [place] [address] [facility] [address] [place] [address] Referral ID Status Reason Start Date Expiration Date V isits Requested Visits Authorized [id number] Closed Auto-Generate d Referral 08/25/2023 11/20/2023 1 1 [facility] for referral (narrative)* Diagnostic Procedure Only (Urgent) - Closed Specialty Diagnoses / Procedures Referred By Contac t Referred To Contact XR IMAGING Diagnoses Chronic pain of left knee Procedures XR KNEE GENERAL 4V AP BOTH/PA BOTH/LAT/MERC LEFT RADIOLOGIC EXAM KNEE COMPLETE 4/MORE VIEWS Amanda Yap APRN.CNP [address] [place] [address] [place] [address] Referral ID Status Reason Start Date Expiration Date V isits Requested Visits Authorized [id number] Closed Auto-Generate d Referral 11/28/2021 12/28/2022 1 1 [facility] for referral (narrative)No reason for referral information availableWOhioHealth [facility] Work Phone: Reason for visit Narrative* Diagnostic Procedure Only (Routine) - Closed Specialty Diagnoses / Procedures Referred By Contac t Referred To Contact [facility] IMAG[facility] Diagnoses Left knee pain, unspecified chronicity Procedures XR KNEE GENERAL 4V AP BOTH/PA BOTH/LAT/MERC LEFT RADIOLOGIC EXAM KNEE COMPLETE 4/MORE VIEWS Nilda Kim PA-C [address] [place] [address] [place] [address] Referral ID Status Reason Start Date Expiration Date V isits Requested Visits Authorized [id number] Closed Auto-Generate d Referral 04/13/2023 05/12/2024 1 1 [facility] for visit Narrative* Outpatient Procedure (Routine) - Closed Specialty Diagnoses / Procedures Referred By Contac t Referred To Contact [facility] Diagnoses History of colonic polyps Procedures COLONOSCOPY SCREENING COLONOSCOPY FLX DX W/COLLJ SPEC WHEN Madelin Alegria MD [address] [facility] [place] [address] [facility] [address] [place] [address] Referral ID Status Reason Start Date Expiration Date V isits Requested Visits Authorized [id number] Closed Auto-Generate d Referral 09/23/2022 10/23/2022 1 1 [facility] for visit Narrative* Outpatient Procedure (Routine) - Closed Specialty Diagnoses / Procedures Referred By Contac t Referred To Contact [facility] Diagnoses History of colonic polyps Procedures COLONOSCOPY SCREENING COLONOSCOPY FLX DX W/COLLJ SPEC WHEN Madelin Alegria MD [address] [place] [address] [facility] [address] [place] [address] Referral ID Status Reason Start Date Expiration Date V isits Requested Visits Authorized [id number] Closed Auto-Generate d Referral 08/25/2023 11/20/2023 1 1 [facility] for visit Narrative* Diagnostic Procedure Only (Urgent) - Closed Specialty Diagnoses / Procedures [facility] Referred To Contact [facility] Diagnoses Chronic pain of left knee Procedures XR KNEE GENERAL 4V AP BOTH/PA BOTH/LAT/MERC LEFT RADIOLOGIC EXAM KNEE COMPLETE 4/MORE VIEWS Amanda Yap, 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 [address] [place] [address] [place] [address] Referral ID Status Reason Start Date Expiration Date V isits Requested Visits Authorized [id number] Closed Auto-Generate d Referral 11/28/2021 12/28/2022 1 1 [facility] Advance Directives No Advanced Directives Records FoundDocuments on File Type Date Recorded Patient Scientific Affairs Manager Expl anation Advance Directive(s) 12/16/2016 10:50 AM Advance Directive(s) 12/18/2015 2:03 PM Advance Directive(s) 12/12/2015 10:53 AM Advance Directive(s) 12/09/2015 2:28 PM Advance Directive(s) 09/14/2013 6:17 PM Advance Directive(s) 08/01/2013 6:46 PM Advance Directive Response Recorded Date/ Time Advance Directives No April 23 8:40am Living Will No January 29, 2022 3: 24pm Power of Federal District Clerk No January 29, 2022 3:24pm Advance Directive Response Recorded Date/ Time Advance Directives No April 23 8:40am Living Will No April 25, 2022 10:59pm Power of Federal District Clerk No April 25 10:59pm Documents on File Type Date Recorded Patient Scientific Affairs Manager Expl anation Advance Directive(s) 09/14/2013 6:17 PM Advance Directive(s) 08/01/2013 6:46 PM Advance Directive Response Recorded Date/ Time Advance Directives on File No 2021 7:44am Advance Directives No May 26, 2022 7:44am Living Will No May 26 7:44am Power of Federal District Clerk No May 26, 2 022 7:44am Documents on File Type Date Recorded Patient Scientific Affairs Manager Expl anation Advance Directive(s) 09/14/2013 6:17 PM Advance Directive(s) 08/01/2013 6:46 PM Advance Directive Response Recorded Date/ Time Advance Directives No May 26, 2022 6:44am Living Will No May 26 6:44am Power of Federal District Clerk No May 26, 2 022 6:44am Advance Directive Response Recorded Date/ Time Advance Directives No May 26, 2022 7:44am Living Will No June 09, 2023 12:17pm Power of Federal District Clerk No May 12:17pm Advance Directive Response Recorded Date/ Time Advance Directives No May 26, 2022 7:44am Chief Complaint and Reason for Visit Chief Complaint Amb Documentation 5 MO F/U FACIAL TWITCING Reason for Visit Leg edema, left 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 Essential hypertension Presence of stent in coronary artery Pure hypercholesterolemia Chief Complaint FACIAL TWITCING 10 MO F/U CAD Coronary artery disease Reason for Visit Leg edema, left 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 Essential hypertension Presence of stent in coronary artery Pure hypercholesterolemia Chief Complaint FACIAL TWITCING 10 MO F/U CAD Coronary artery disease UPDATE H&P FOR CATH 05/05 COLD SX Reason for Visit Leg edema, left 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 Essential hypertension Presence of stent in coronary artery Pure hypercholesterolemia 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 Essential hypertension Presence of stent in coronary artery Pure hypercholesterolemia Chief Complaint 10 MO F/U CAD Coronary artery disease UPDATE H&P FOR CATH 05/05 COLD SX ABN STRESS ABN STRESS Reason for Visit Leg edema, left 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 Essential hypertension Presence of stent in coronary artery Pure hypercholesterolemia 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 Essential hypertension Presence of stent in coronary artery Pure hypercholesterolemia Chief Complaint Amb Documentation 6 m fu E ORDERS Reason for Visit Atherosclerotic hear t disease of [place] coronary artery without angina pectoris Essential hypertension Presence of stent in coronary artery Pure hypercholesterolemia Chief Complaint 6 M FU COVID TEST Reason for Visit Atherosclerotic hear t disease of [place] coronary artery without angina pectoris Essential hypertension Pure hypercholesterolemia Tinnitus Chief Complaint 6 M FU EORDER Reason for Visit Bilateral lower extr emity edema Coronary artery disease Dyslipidemia Erectile dysfunction Essential hypertension Obesity (BMI 30.0-34.9) [place] on CPAP Presence of stent in coronary artery Type II diabetes mellitus Chief Complaint 6 M FU EORDER E-ORDER Reason for Visit Bilateral lower extr emity edema Coronary artery disease Dyslipidemia Erectile dysfunction Essential hypertension Obesity (BMI 30.0-34.9) [place] on CPAP Presence of stent in coronary artery Type II diabetes mellitus Chief Complaint 6 M FU EORDER E-ORDER CHEST PAIN Reason for Visit Bilateral lower extr emity edema Coronary artery disease Dyslipidemia Erectile dysfunction Essential hypertension Obesity (BMI 30.0-34.9) [place] on CPAP Presence of stent in coronary artery Type II diabetes mellitus Chief Complaint Admit Date [place] May 09, 2025 8: 01pm Reason for Referral Specialty Diagnoses / Procedures Referred By Gita frank Referred To Contact Neurology Diagnoses Oral dyskinesia Procedures CONSULT TO NEUROLOGY OFFICE/OUTPATIENT [facility] 60-74 MINUTES Grant Krause MD [address] [place] [address] Referral ID Status Reason Start Date Expiration Date Visits Requested Visits Authorized [id number] Pending Review PCP Requested Referral 05/11/2022 05/11/2023 1 1 Specialty Diagnoses / Procedures Referred By Gita frank Referred To Contact Podiatry Diagnoses Type 2 diabetes mellitus with stage 3a chronic kidney disease, without long-term current use of insulin (HCC) Bunion Procedures CONSULT TO PODIATRY OFFICE/OUTPATIENT [facility] 60-74 MINUTES Grant Krause MD [address] [place] [address] Referral ID Status Reason Start Date Expiration Date Visits Requested Visits Authorized [id number] Pending Review PCP Requested Referral 04/02/2023 04/01/2024 1 1 Medications Administered Section Inactive Administered Medications - up to 3 most recent administrations Medication Order MAR Action Action Date Dose Rate Site betamethasone acetate-betamethasone sodium phosphate 6 mg injection (CELESTONE) 6 mg, Injection - FOR ORTHO USE ONLY, ONE TIME INJECTION, 1 dose, Starting on Wed01/11/23 at 1523, Until Wed01/11/23 at 1523 Given 2023 3:23 PM EDT 6 mg Kn ee, Left lidocaine (PF) 10 mg/mL (1 %) 4 mL injection (XYLOCAINE) 4 mL, Injection - FOR ORTHO USE ONLY, ONE TIME INJECTION, 1 dose, Starting on Wed01/11/23 at 1523, Until Wed01/11/23 at 1523 Given 2023 3:23 PM EDT 4 mL Kn ee, Left Inactive Administered Medications - up to 3 most recent administrations Medication Order MAR Action Action Date Dose Rate Site betamethasone acetate-betamethasone sodium phosphate 6 mg injection (CELESTONE) 6 mg, Injection - FOR ORTHO USE ONLY, ONE TIME INJECTION, 1 dose, Starting on Wed04/26/23 at 1456, Until Wed04/26/23 at 1456 Given 04/26/2023 2:56 PM EDT 6 mg Kn ee, Left lidocaine (PF) 10 mg/mL (1 %) 4 mL injection (XYLOCAINE) 4 mL, Injection - FOR ORTHO USE ONLY, ONE TIME INJECTION, 1 dose, Starting on Wed04/26/23 at 1456, Until Wed04/26/23 at 1456 Given 04/26/2023 2:56 PM EDT 4 mL Kn ee, Left Inactive Administered Medications - up to 3 most recent administrations Medication Order MAR Action Action Date Dose Rate Site diphenhydrAMINE 12.5-50 mg injection (BENADRYL) 12.5-50 mg, INTRAVENOUS, DIRECTED, Starting on Wed09/23/22 at 1230, Until Wed09/23/22 at 1629, DOSING DIRECTED BY PHYSICIAN FOR PROCEDURAL SEDATION ONLY, Intraprocedure Given 09/23/2022 12:24 PM EST 50 mg fentaNYL 50 mcg/mL 25-100 mcg injection (SUBLIMAZE) 25-100 mcg, INTRAVENOUS, DIRECTED, Starting on Wed09/23/22 at 1230, Until Wed09/23/22 at 1629, DOSING DIRECTED BY PHYSICIAN FOR PROCEDURAL SEDATION ONLY, Intraprocedure Given 09/23/2022 12:21 PM EST 50 mcg lactated ringers iv infusion 75 mL/hr, INTRAVENOUS, CONTINUOUS, Starting on Wed09/23/22 at 1130, Until Wed09/23/22 at 1251, Preprocedure New Bag/Syringe/Bottle 09/23/2022 11:10 AM EST 75 mL/hr 75 mL/hr midazolam 1-5 mg injection (VERSED) 1-5 mg, INTRAVENOUS, DIRECTED, Starting on Wed09/23/22 at 1230, Until Wed09/23/22 at 1629, DOSING DIRECTED BY PHYSICIAN FOR PROCEDURAL SEDATION ONLY, Intraprocedure Given 09/23/2022 12:21 PM EST 3 mg Inactive Administered Medications - up to 3 most recent administrations Medication Order MAR Action Action Date Dose Rate Site diphenhydrAMINE 12.5-50 mg injection (BENADRYL) 12.5-50 mg, INTRAVENOUS, DIRECTED, Starting on Wed08/25/23 at 0900, Until Wed08/25/23 at 1259, DOSING DIRECTED BY PHYSICIAN FOR PROCEDURAL SEDATION ONLY, Intraprocedure Given 08/25/2023 8:45 AM EST 50 mg fentaNYL 50 mcg/mL 25-100 mcg injection (SUBLIMAZE) 25-100 mcg, INTRAVENOUS, DIRECTED, Starting on Wed08/25/23 at 0900, Until Wed08/25/23 at 1259, DOSING DIRECTED BY PHYSICIAN FOR PROCEDURAL SEDATION ONLY, Intraprocedure Given 08/25/2023 8:42 AM EST 50 mcg lactated ringers iv infusion 75 mL/hr, INTRAVENOUS, CONTINUOUS, Starting on Wed08/25/23 at 0800, Until Wed08/25/23 at 0942, Preprocedure New Bag/Syringe/Tae le 08/25/2023 8:10 AM EST 75 mL/hr 75 mL/hr Arm, Right midazolam 1-5 mg injection (VERSED) 1-5 mg, INTRAVENOUS, DIRECTED, Starting on Wed08/25/23 at 0900, Until Wed08/25/23 at 1259, DOSING DIRECTED BY PHYSICIAN FOR PROCEDURAL SEDATION ONLY, Intraprocedure Given 08/25/2023 8:42 AM EST 3 mg Summary Purpose Family History No Family History Records Found Additional Source Comments Source Comments (unrecognize d section and content) In the event this informatio n is protected by the Federal Confidentiality of Alcohol and Drug Abuse Patient Records regulations: The Federal rules restrict any use of the information to criminally investigate or prosecute any alcohol or drug abuse patient.[facility] the event this information is protected by the Federal Confidentiality of Alcohol and Drug Abuse Patient Records regulations: The Federal rules restrict any use of the information to criminally investigate or prosecute any alcohol or drug abuse patient.[facility]In the event this information is protected by the Federal Confidentiality of Alcohol and Drug Abuse Patient Records regulations: The Federal rules restrict any use of the information to criminally investigate or prosecute any alcohol or drug abuse patient.[facility]In the event this information is protected by the Federal Confidentiality of Alcohol and Drug Abuse Patient Records regulations: The Federal rules restrict any use of the information to criminally investigate or prosecute any alcohol or drug abuse patient.[facility]In the event this information is protected by the Federal Confidentiality of Alcohol and Drug Abuse Patient Records regulations: The Federal rules restrict any use of the information to criminally investigate or prosecute any alcohol or drug abuse patient.[facility]In the event this information is protected by the Federal Confidentiality of Alcohol and Drug Abuse Patient Records regulations: The Federal rules restrict any use of the information to criminally investigate or prosecute any alcohol or drug abuse patient.[facility] HospitalIn the event this information is protected by the Federal Confidentiality of Alcohol and Drug Abuse Patient Records regulations: The Federal rules restrict any use of the information to criminally investigate or prosecute any alcohol or drug abuse patient.[facility] HospitalIn the event this information is protected by the Federal Confidentiality of Alcohol and Drug Abuse Patient Records regulations: The Federal rules restrict any use of the information to criminally investigate or prosecute any alcohol or drug abuse patient.[facility]In the event this information is protected by the Federal Confidentiality of Alcohol and Drug Abuse Patient Records regulations: The Federal rules restrict any use of the information to criminally investigate or prosecute any alcohol or drug abuse patient.[facility] HospitalIn the event this information is protected by the Federal Confidentiality of Alcohol and Drug Abuse Patient Records regulations: The Federal rules restrict any use of the information to criminally investigate or prosecute any alcohol or drug abuse patient.[facility] HospitalIn the event this information is protected by the Federal Confidentiality of Alcohol and Drug Abuse Patient Records regulations: The Federal rules restrict any use of the information to criminally investigate or prosecute any alcohol or drug abuse patient.[facility] HospitalIn the event this information is protected by the Federal Confidentiality of Alcohol and Drug Abuse Patient Records regulations: The Federal rules restrict any use of the information to criminally investigate or prosecute any alcohol or drug abuse patient.[facility] HospitalIn the event this information is protected by the Federal Confidentiality of Alcohol and Drug Abuse Patient Records regulations: The Federal rules restrict any use of the information to criminally investigate or prosecute any alcohol or drug abuse patient.[facility] HospitalIn the event this information is protected by the Federal Confidentiality of Alcohol and Drug Abuse Patient Records regulations: The Federal rules restrict any use of the information to criminally investigate or prosecute any alcohol or drug abuse patient.[facility] HospitalIn the event this information is protected by the Federal Confidentiality of Alcohol and Drug Abuse Patient Records regulations: The Federal rules restrict any use of the information to criminally investigate or prosecute any alcohol or drug abuse patient.[facility] HospitalIn the event this information is protected by the Federal Confidentiality of Alcohol and Drug Abuse Patient Records regulations: The Federal rules restrict any use of the information to criminally investigate or prosecute any alcohol or drug abuse patient.[facility] HospitalIn the event this information is protected by the Federal Confidentiality of Alcohol and Drug Abuse Patient Records regulations: The Federal rules restrict any use of the information to criminally investigate or prosecute any alcohol or drug abuse patient.[facility] HospitalIn the event this information is protected by the Federal Confidentiality of Alcohol and Drug Abuse Patient Records regulations: The Federal rules restrict any use of the information to criminally investigate or prosecute any alcohol or drug abuse patient.[facility] HospitalIn the event this information is protected by the Federal Confidentiality of Alcohol and Drug Abuse Patient Records regulations: The Federal rules restrict any use of the information to criminally investigate or prosecute any alcohol or drug abuse patient.[facility] HospitalIn the event this information is protected by the Federal Confidentiality of Alcohol and Drug Abuse Patient Records regulations: The Federal rules restrict any use of the information to criminally investigate or prosecute any alcohol or drug abuse patient.[facility] HospitalIn the event this information is protected by the Federal Confidentiality of Alcohol and Drug Abuse Patient Records regulations: The Federal rules restrict any use of the information to criminally investigate or prosecute any alcohol or drug abuse patient.[facility] HospitalIn the event this information is protected by the Federal Confidentiality of Alcohol and Drug Abuse Patient Records regulations: The Federal rules restrict any use of the information to criminally investigate or prosecute any alcohol or drug abuse patient.[facility] HospitalIn the event this information is protected by the Federal Confidentiality of Alcohol and Drug Abuse Patient Records regulations: The Federal rules restrict any use of the information to criminally investigate or prosecute any alcohol or drug abuse patient.[facility] HospitalIn the event this information is protected by the Federal Confidentiality of Alcohol and Drug Abuse Patient Records regulations: The Federal rules restrict any use of the information to criminally investigate or prosecute any alcohol or drug abuse patient.[facility] HospitalIn the event this information is protected by the Federal Confidentiality of Alcohol and Drug Abuse Patient Records regulations: The Federal rules restrict any use of the information to criminally investigate or prosecute any alcohol or drug abuse patient.[facility] HospitalIn the event this information is protected by the Federal Confidentiality of Alcohol and Drug Abuse Patient Records regulations: The Federal rules restrict any use of the information to criminally investigate or prosecute any alcohol or drug abuse patient.[facility] HospitalIn the event this information is protected by the Federal Confidentiality of Alcohol and Drug Abuse Patient Records regulations: The Federal rules restrict any use of the information to criminally investigate or prosecute any alcohol or drug abuse patient.[facility] HospitalIn the event this information is protected by the Federal Confidentiality of Alcohol and Drug Abuse Patient Records regulations: The Federal rules restrict any use of the information to criminally investigate or prosecute any alcohol or drug abuse patient.[facility] HospitalIn the event this information is protected by the Federal Confidentiality of Alcohol and Drug Abuse Patient Records regulations: The Federal rules restrict any use of the information to criminally investigate or prosecute any alcohol or drug abuse patient.[facility] HospitalIn the event this information is protected by the Federal Confidentiality of Alcohol and Drug Abuse Patient Records regulations: The Federal rules restrict any use of the information to criminally investigate or prosecute any alcohol or drug abuse patient.[facility] HospitalIn the event this information is protected by the Federal Confidentiality of Alcohol and Drug Abuse Patient Records regulations: The Federal rules restrict any use of the information to criminally investigate or prosecute any alcohol or drug abuse patient.[facility] HospitalIn the event this information is protected by the Federal Confidentiality of Alcohol and Drug Abuse Patient Records regulations: The Federal rules restrict any use of the information to criminally investigate or prosecute any alcohol or drug abuse patient.[facility] HospitalIn the event this information is protected by the Federal Confidentiality of Alcohol and Drug Abuse Patient Records regulations: The Federal rules restrict any use of the information to criminally investigate or prosecute any alcohol or drug abuse patient.[facility] HospitalIn the event this information is protected by the Federal Confidentiality of Alcohol and Drug Abuse Patient Records regulations: The Federal rules restrict any use of the information to criminally investigate or prosecute any alcohol or drug abuse patient.[facility] HospitalIn the event this information is protected by the Federal Confidentiality of Alcohol and Drug Abuse Patient Records regulations: The Federal rules restrict any use of the information to criminally investigate or prosecute any alcohol or drug abuse patient.[facility] HospitalIn the event this information is protected by the Federal Confidentiality of Alcohol and Drug Abuse Patient Records regulations: The Federal rules restrict any use of the information to criminally investigate or prosecute any alcohol or drug abuse patient.[facility] HospitalIn the event this information is protected by the Federal Confidentiality of Alcohol and Drug Abuse Patient Records regulations: The Federal rules restrict any use of the information to criminally investigate or prosecute any alcohol or drug abuse patient.[facility] HospitalIn the event this information is protected by the Federal Confidentiality of Alcohol and Drug Abuse Patient Records regulations: The Federal rules restrict any use of the information to criminally investigate or prosecute any alcohol or drug abuse patient.[facility] HospitalIn the event this information is protected by the Federal Confidentiality of Alcohol and Drug Abuse Patient Records regulations: The Federal rules restrict any use of the information to criminally investigate or prosecute any alcohol or drug abuse patient.[facility] HospitalIn the event this information is protected by the Federal Confidentiality of Alcohol and Drug Abuse Patient Records regulations: The Federal rules restrict any use of the information to criminally investigate or prosecute any alcohol or drug abuse patient.[facility] HospitalIn the event this information is protected by the Federal Confidentiality of Alcohol and Drug Abuse Patient Records regulations: The Federal rules restrict any use of the information to criminally investigate or prosecute any alcohol or drug abuse patient.[facility] HospitalIn the event this information is protected by the Federal Confidentiality of Alcohol and Drug Abuse Patient Records regulations: The Federal rules restrict any use of the information to criminally investigate or prosecute any alcohol or drug abuse patient.[facility] HospitalIn the event this information is protected by the Federal Confidentiality of Alcohol and Drug Abuse Patient Records regulations: The Federal rules restrict any use of the information to criminally investigate or prosecute any alcohol or drug abuse patient.[facility] HospitalIn the event this information is protected by the Federal Confidentiality of Alcohol and Drug Abuse Patient Records regulations: The Federal rules restrict any use of the information to criminally investigate or prosecute any alcohol or drug abuse patient.[facility] HospitalIn the event this information is protected by the Federal Confidentiality of Alcohol and Drug Abuse Patient Records regulations: The Federal rules restrict any use of the information to criminally investigate or prosecute any alcohol or drug abuse patient.[facility] HospitalIn the event this information is protected by the Federal Confidentiality of Alcohol and Drug Abuse Patient Records regulations: The Federal rules restrict any use of the information to criminally investigate or prosecute any alcohol or drug abuse patient.[facility] HospitalIn the event this information is protected by the Federal Confidentiality of Alcohol and Drug Abuse Patient Records regulations: The Federal rules restrict any use of the information to criminally investigate or prosecute any alcohol or drug abuse patient.[facility] HospitalIn the event this information is protected by the Federal Confidentiality of Alcohol and Drug Abuse Patient Records regulations: The Federal rules restrict any use of the information to criminally investigate or prosecute any alcohol or drug abuse patient.[facility] HospitalIn the event this information is protected by the Federal Confidentiality of Alcohol and Drug Abuse Patient Records regulations: The Federal rules restrict any use of the information to criminally investigate or prosecute any alcohol or drug abuse patient.[facility] HospitalIn the event this information is protected by the Federal Confidentiality of Alcohol and Drug Abuse Patient Records regulations: The Federal rules restrict any use of the information to criminally investigate or prosecute any alcohol or drug abuse patient.[facility] HospitalIn the event this information is protected by the Federal Confidentiality of Alcohol and Drug Abuse Patient Records regulations: The Federal rules restrict any use of the information to criminally investigate or prosecute any alcohol or drug abuse patient.[facility] HospitalIn the event this information is protected by the Federal Confidentiality of Alcohol and Drug Abuse Patient Records regulations: The Federal rules restrict any use of the information to criminally investigate or prosecute any alcohol or drug abuse patient.[facility] HospitalIn the event this information is protected by the Federal Confidentiality of Alcohol and Drug Abuse Patient Records regulations: The Federal rules restrict any use of the information to criminally investigate or prosecute any alcohol or drug abuse patient.[facility] HospitalIn the event this information is protected by the Federal Confidentiality of Alcohol and Drug Abuse Patient Records regulations: The Federal rules restrict any use of the information to criminally investigate or prosecute any alcohol or drug abuse patient.[facility] HospitalIn the event this information is protected by the Federal Confidentiality of Alcohol and Drug Abuse Patient Records regulations: The Federal rules restrict any use of the information to criminally investigate or prosecute any alcohol or drug abuse patient.[facility] HospitalIn the event this information is protected by the Federal Confidentiality of Alcohol and Drug Abuse Patient Records regulations: The Federal rules restrict any use of the information to criminally investigate or prosecute any alcohol or drug abuse patient.[facility] HospitalIn the event this information is protected by the Federal Confidentiality of Alcohol and Drug Abuse Patient Records regulations: The Federal rules restrict any use of the information to criminally investigate or prosecute any alcohol or drug abuse patient.[facility] HospitalIn the event this information is protected by the Federal Confidentiality of Alcohol and Drug Abuse Patient Records regulations: The Federal rules restrict any use of the information to criminally investigate or prosecute any alcohol or drug abuse patient.[facility] HospitalIn the event this information is protected by the Federal Confidentiality of Alcohol and Drug Abuse Patient Records regulations: The Federal rules restrict any use of the information to criminally investigate or prosecute any alcohol or drug abuse patient.[facility] HospitalIn the event this information is protected by the Federal Confidentiality of Alcohol and Drug Abuse Patient Records regulations: The Federal rules restrict any use of the information to criminally investigate or prosecute any alcohol or drug abuse patient.[facility] HospitalIn the event this information is protected by the Federal Confidentiality of Alcohol and Drug Abuse Patient Records regulations: The Federal rules restrict any use of the information to criminally investigate or prosecute any alcohol or drug abuse patient.[facility] HospitalIn the event this information is protected by the Federal Confidentiality of Alcohol and Drug Abuse Patient Records regulations: The Federal rules restrict any use of the information to criminally investigate or prosecute any alcohol or drug abuse patient.[facility] HospitalIn the event this information is protected by the Federal Confidentiality of Alcohol and Drug Abuse Patient Records regulations: The Federal rules restrict any use of the information to criminally investigate or prosecute any alcohol or drug abuse patient.[facility] HospitalIn the event this information is protected by the Federal Confidentiality of Alcohol and Drug Abuse Patient Records regulations: The Federal rules restrict any use of the information to criminally investigate or prosecute any alcohol or drug abuse patient.[facility] HospitalIn the event this information is protected by the Federal Confidentiality of Alcohol and Drug Abuse Patient Records regulations: The Federal rules restrict any use of the information to criminally investigate or prosecute any alcohol or drug abuse patient.[facility] HospitalIn the event this information is protected by the Federal Confidentiality of Alcohol and Drug Abuse Patient Records regulations: The Federal rules restrict any use of the information to criminally investigate or prosecute any alcohol or drug abuse patient.[facility] HospitalIn the event this information is protected by the Federal Confidentiality of Alcohol and Drug Abuse Patient Records regulations: The Federal rules restrict any use of the information to criminally investigate or prosecute any alcohol or drug abuse patient.[facility] HospitalIn the event this information is protected by the Federal Confidentiality of Alcohol and Drug Abuse Patient Records regulations: The Federal rules restrict any use of the information to criminally investigate or prosecute any alcohol or drug abuse patient.[facility] HospitalIn the event this information is protected by the Federal Confidentiality of Alcohol and Drug Abuse Patient Records regulations: The Federal rules restrict any use of the information to criminally investigate or prosecute any alcohol or drug abuse patient.[facility] HospitalIn the event this information is protected by the Federal Confidentiality of Alcohol and Drug Abuse Patient Records regulations: The Federal rules restrict any use of the information to criminally investigate or prosecute any alcohol or drug abuse patient.[facility] HospitalIn the event this information is protected by the Federal Confidentiality of Alcohol and Drug Abuse Patient Records regulations: The Federal rules restrict any use of the information to criminally investigate or prosecute any alcohol or drug abuse patient.[facility] HospitalIn the event this information is protected by the Federal Confidentiality of Alcohol and Drug Abuse Patient Records regulations: The Federal rules restrict any use of the information to criminally investigate or prosecute any alcohol or drug abuse patient.[facility] HospitalIn the event this information is protected by the Federal Confidentiality of Alcohol and Drug Abuse Patient Records regulations: The Federal rules restrict any use of the information to criminally investigate or prosecute any alcohol or drug abuse patient.[facility] HospitalIn the event this information is protected by the Federal Confidentiality of Alcohol and Drug Abuse Patient Records regulations: The Federal rules restrict any use of the information to criminally investigate or prosecute any alcohol or drug abuse patient.[facility] HospitalIn the event this information is protected by the Federal Confidentiality of Alcohol and Drug Abuse Patient Records regulations: The Federal rules restrict any use of the information to criminally investigate or prosecute any alcohol or drug abuse patient.[facility] HospitalIn the event this information is protected by the Federal Confidentiality of Alcohol and Drug Abuse Patient Records regulations: The Federal rules restrict any use of the information to criminally investigate or prosecute any alcohol or drug abuse patient.[facility] HospitalIn the event this information is protected by the Federal Confidentiality of Alcohol and Drug Abuse Patient Records regulations: The Federal rules restrict any use of the information to criminally investigate or prosecute any alcohol or drug abuse patient.[facility] HospitalIn the event this information is protected by the Federal Confidentiality of Alcohol and Drug Abuse Patient Records regulations: The Federal rules restrict any use of the information to criminally investigate or prosecute any alcohol or drug abuse patient.[facility] HospitalIn the event this information is protected by the Federal Confidentiality of Alcohol and Drug Abuse Patient Records regulations: The Federal rules restrict any use of the information to criminally investigate or prosecute any alcohol or drug abuse patient.[facility] HospitalIn the event this information is protected by the Federal Confidentiality of Alcohol and Drug Abuse Patient Records regulations: The Federal rules restrict any use of the information to criminally investigate or prosecute any alcohol or drug abuse patient.[facility] HospitalIn the event this information is protected by the Federal Confidentiality of Alcohol and Drug Abuse Patient Records regulations: The Federal rules restrict any use of the information to criminally investigate or prosecute any alcohol or drug abuse patient.[facility] HospitalIn the event this information is protected by the Federal Confidentiality of Alcohol and Drug Abuse Patient Records regulations: The Federal rules restrict any use of the information to criminally investigate or prosecute any alcohol or drug abuse patient.[facility] HospitalIn the event this information is protected by the Federal Confidentiality of Alcohol and Drug Abuse Patient Records regulations: The Federal rules restrict any use of the information to criminally investigate or prosecute any alcohol or drug abuse patient.[facility] HospitalIn the event this information is protected by the Federal Confidentiality of Alcohol and Drug Abuse Patient Records regulations: The Federal rules restrict any use of the information to criminally investigate or prosecute any alcohol or drug abuse patient.[facility] HospitalIn the event this information is protected by the Federal Confidentiality of Alcohol and Drug Abuse Patient Records regulations: The Federal rules restrict any use of the information to criminally investigate or prosecute any alcohol or drug abuse patient.[facility] HospitalIn the event this information is protected by the Federal Confidentiality of Alcohol and Drug Abuse Patient Records regulations: The Federal rules restrict any use of the information to criminally investigate or prosecute any alcohol or drug abuse patient.[facility] HospitalIn the event this information is protected by the Federal Confidentiality of Alcohol and Drug Abuse Patient Records regulations: The Federal rules restrict any use of the information to criminally investigate or prosecute any alcohol or drug abuse patient.[facility] HospitalIn the event this information is protected by the Federal Confidentiality of Alcohol and Drug Abuse Patient Records regulations: The Federal rules restrict any use of the information to criminally investigate or prosecute any alcohol or drug abuse patient.[facility] HospitalIn the event this information is protected by the Federal Confidentiality of Alcohol and Drug Abuse Patient Records regulations: The Federal rules restrict any use of the information to criminally investigate or prosecute any alcohol or drug abuse patient.[facility] HospitalIn the event this information is protected by the Federal Confidentiality of Alcohol and Drug Abuse Patient Records regulations: The Federal rules restrict any use of the information to criminally investigate or prosecute any alcohol or drug abuse patient.[facility] HospitalIn the event this information is protected by the Federal Confidentiality of Alcohol and Drug Abuse Patient Records regulations: The Federal rules restrict any use of the information to criminally investigate or prosecute any alcohol or drug abuse patient.[facility] HospitalIn the event this information is protected by the Federal Confidentiality of Alcohol and Drug Abuse Patient Records regulations: The Federal rules restrict any use of the information to criminally investigate or prosecute any alcohol or drug abuse patient.[facility] HospitalIn the event this information is protected by the Federal Confidentiality of Alcohol and Drug Abuse Patient Records regulations: The Federal rules restrict any use of the information to criminally investigate or prosecute any alcohol or drug abuse patient.[facility] HospitalIn the event this information is protected by the Federal Confidentiality of Alcohol and Drug Abuse Patient Records regulations: The Federal rules restrict any use of the information to criminally investigate or prosecute any alcohol or drug abuse patient.[facility] HospitalIn the event this information is protected by the Federal Confidentiality of Alcohol and Drug Abuse Patient Records regulations: The Federal rules restrict any use of the information to criminally investigate or prosecute any alcohol or drug abuse patient.[facility] HospitalIn the event this information is protected by the Federal Confidentiality of Alcohol and Drug Abuse Patient Records regulations: The Federal rules restrict any use of the information to criminally investigate or prosecute any alcohol or drug abuse patient.[facility] HospitalIn the event this information is protected by the Federal Confidentiality of Alcohol and Drug Abuse Patient Records regulations: The Federal rules restrict any use of the information to criminally investigate or prosecute any alcohol or drug abuse patient.[facility] HospitalIn the event this information is protected by the Federal Confidentiality of Alcohol and Drug Abuse Patient Records regulations: The Federal rules restrict any use of the information to criminally investigate or prosecute any alcohol or drug abuse patient.[facility] HospitalIn the event this information is protected by the Federal Confidentiality of Alcohol and Drug Abuse Patient Records regulations: The Federal rules restrict any use of the information to criminally investigate or prosecute any alcohol or drug abuse patient.[facility] Reason for Visit (unrecogniz ed section and content) Reason Onset Date Comments Population Health Navigation Outreach 12/24/2021 [employer] Care Gaps Reason Onset Date Comments Refill Request 12/29/2021 Reason Onset Date Comments Refill Request 01/12/2022 Reason Comments New Knee Pain Specialty Diagnoses / Procedures Referred By Contac t Referred To Contact Orthopedics Diagnoses Chronic pain of left knee Procedures CONSULT TO ORTHOPAEDICS OFFICE/OUTPATIENT NEW HIGH MDM 60-74 MINUTES Amanda Yap APRN.BRAKE MACHINE OPERATOR [address] [place] [address] Referral ID Status Reason Start Date Expiration Date Visits Requested Visits Authorized [id number] Pending Review PCP Requested Referral 11/28/2021 11/28/2022 1 1 Reason Onset Date Comments Refill Request 02/06/2022 Reason Onset Date Comments Refill Request 02/09/2022 Reason Comments Refill Request Reason Onset Date Comments Refill Request 02/27/2022 Reason Onset Date Comments Refill Request 04/01/2022 Reason Onset Date Comments Refill Request 04/06/2022 Reason Comments Covid19 Concern test + Reason Comments Tremor Reason Comments Discussion Reason Onset Date Comments Refill Request 06/29/2022 Reason Onset Date Comments Refill Request 07/10/2022 Reason Onset Date Comments Refill Request 07/24/2022 Reason Comments Patient Question Cardiac clearance fo r colonoscopy Reason Onset Date Comments Refill Request 09/01/2022 Reason Comments 09/23/2022 cololn asc Reason Onset Date Comments Refill Request 09/16/2022 Reason Onset Date Comments Refill Request 09/25/2022 Refill Request 09/30/2022 Reason Onset Date Comments Population Health Navigation Outreach 11/16/2022 [employer] care gaps Reason Comments Medicare Wellness Exam Reason Onset Date Comments Refill Request 12/18/2022 Reason Comments Medication Problem Reason Comments Follow Up 6 1/2 months post visit OA left knee wit h injection given Reason Onset Date Comments Refill Request 01/19/2023 Reason Onset Date Comments Refill Request 03/23/2023 Reason Comments F/U 6 months Reason Comments Results Reason Comments New Patient Diabetic Foot Care Reason Comments Established Patient 91 days post injecti on Injections 91 days post injecti on Reason Onset Date Comments Refill Request 05/10/2023 Reason Onset Date Comments Refill Request 05/28/2023 Reason Comments Established Patient Diabetic Foot Care Reason Onset Date Comments Refill Request 07/26/2023 Reason Comments Consult Colonoscopy Reason Onset Date Comments Refill Request 08/26/2023 Reason Comments Established Patient Knee Pain Injections Reason Onset Date Comments Refill Request 11/23/2023 Reason Comments Patient Update Reason Onset Date Comments Refill Request 01/12/2024 Reason Onset Date Comments Refill Request 01/14/2024 Reason Comments Established Patient Follow Up Injections Knee Pain Reason Comments Kidney Problem Wants an update on h is kidney issues, also asking for brain xrays. Reason Onset Date Comments Refill Request 02/25/2024 Reason Onset Date Comments Refill Request 04/10/2024 Reason Onset Date Comments Refill Request 04/12/2024 Reason Onset Date Comments Refill Request 04/18/2024 Reason Onset Date Comments Refill Request 04/27/2024 Reason Onset Date Comments Refill Request 05/05/2024 Reason Comments Established Patient Follow Up Reason Comments Follow Up 4 month Fall 06/02/24 Reason Onset Date Comments Refill Request 06/20/2024 Reason Comments Hospital Discharge Reason Comments Cough Chest congestion, ST , runny nose, watery eyes x2 weeks Reason Comments 08/25/2023 COLON ASC Reason Onset Date Comments Refill Request 08/03/2024 Reason Onset Date Comments Allied Health Visit 08/14/2024 Statin Use R eview Reason Onset Date Comments Refill Request 09/18/2024 Reason Onset Date Comments Refill Request 10/09/2024 Reason Comments F/U 3 Month Reason Comments Established Patient Follow Up Injections Reason Onset Date Comments Refill Request 10/24/2024 Reason Onset Date Comments Refill Request 10/24/2024 Medication Problem 10/24/2024 Patient is ou t of his inhaler. Reason Comments Patient Update CPAP supplies Reason Onset Date Comments Refill Request 11/01/2024 Reason Comments Equipment Question New CPAP Reason Comments Appointment Reason Comments New Patient Evaluation Reason Onset Date Comments Refill Request 02/05/2025 Reason Onset Date Comments Refill Request 03/12/2025 Reason Onset Date Comments Refill Request 04/02/2025 Reason Comments Medicare Wellness Exam 4 months Reason Comments Follow Up Reason Comments New Patient Evaluation Cognitive deficit s [R41.89] Specialty Diagnoses / Procedures Referred By Contac t Referred To Contact Gerontology Diagnoses Cognitive deficits Procedures OFFICE/OUTPATIENT [facility] 60 MINUTES Liat Smith, [employer]IGH 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 [address] [place] [address] Phone: tel: fax: Referral ID Status Reason Start Date Expiration Date V isits Requested Visits Authorized [id number] Closed PCP Requested Referral 04/10/2025 04/10/2026 1 1 Reason Comments Established Patient Follow Up Diabetic Foot Care Care Teams (unrecognized sec tion and content) Jeweler Apprentice Relationship Specialty Start Date End Date Grant Krause MD [address] [place] [address] PCP - General 07/18/02 Alysia, [place] S [address] [place] [address] Physician Cardiology 01/25/19 Jeweler Apprentice Relationship Specialty Start Date End Date Grant Krause MD [address] [place] [address] PCP - General 07/18/02 Alysia, [place] S [address] [place] [id number] Physician Cardiology 01/25/19 Jeweler Apprentice Relationship Specialty Start Date End Date Grant Krause MD [address] [place] [address] PCP - General 07/18/02 Alysia, Mo S [address] [place] [address] Physician Cardiology 01/25/19 Jeweler Apprentice Relationship Specialty Start Date End Date Grant Krause MD [address] [place] [address] PCP - General 07/18/02 Alysia, [place] S [address] [place] [address] Physician Cardiology 01/25/19 Jeweler Apprentice Relationship Specialty Start Date End Date Grant Krause MD [address] [facility] [place] [address] PCP - General 07/18/02 Alysia, [place] S [address] [place] [address] Physician Cardiology 01/25/19 Jeweler Apprentice Relationship Specialty Start Date End Date Grant Krause MD [address] [place] [address] PCP - General 07/18/02 Alysia, [place] S [address] [place] [address] Physician Cardiology 01/25/19 Jeweler Apprentice Relationship Specialty Start Date End Date Grant Krause MD [address] [place] [address] PCP - General 07/18/02 Alysia, [place] S [address] [place] [address] Physician Cardiology 01/25/19 Jeweler Apprentice Relationship Specialty Start Date End Date Grant Krause MD [address] [place] [address] PCP - General 07/18/02 Alysia, [place] S [address] [place] [address] Physician Cardiology 01/25/19 Jeweler Apprentice Relationship Specialty Start Date End Date Grant Krause MD [address] [place] [address] PCP - General 07/18/02 Alysia, [place] S [address] [place] [address] Physician Cardiology 01/25/19 Jeweler Apprentice Relationship Specialty Start Date End Date Grant Krause MD [address] [facility] [place] [address] PCP - General 07/18/02 Alysia, [place] S [address] [place] [address] Physician Cardiology 01/25/19 Jeweler Apprentice Relationship Specialty Start Date End Date Grant Krause MD [address] [place] [address] PCP - General 07/18/02 Alysia, [place] S [address] [place] [address] Physician Cardiology 01/25/19 Jeweler Apprentice Relationship Specialty Start Date End Date Grant Krause MD [address] [place] [address] PCP - General 07/18/02 Alysia, [place] S [address] [place] [address] Physician Cardiology 01/25/19 Jeweler Apprentice Relationship Specialty Start Date End Date Grant Krause MD [address] [place] [address] PCP - General 07/18/02 Alysia, [place] S [address] [place] [address] Physician Cardiology 01/25/19 Jeweler Apprentice Relationship Specialty Start Date End Date Grant Krause MD [address] [place] [address] PCP - General 07/18/02 Alysia, [place] S [address] [place] [address] Physician Cardiology 01/25/19 Jeweler Apprentice Relationship Specialty Start Date End Date Grant Krause MD [address] [facility] [place] [address] PCP - General 07/18/02 Alysia, Mo S [address] [place] [address] Physician Cardiology 01/25/19 Jeweler Apprentice Relationship Specialty Start Date End Date Grant Krause MD [address] [facility] [place] [address] PCP - General 07/18/02 Alysia, [place] S [address] [place] [address] Physician Cardiology 01/25/19 Jeweler Apprentice Relationship Specialty Start Date End Date Grant Krause MD [address] [facility] [place] [address] PCP - General 07/18/02 Alysia, [place] S [address] [place] [address] Physician Cardiology 01/25/19 Team Status: Active Member Role Status Dates Dr. Grant Krause MD Family Provider Active Dr. Grant Krause MD Primary Care Provider Active Team Status: Inactive Member Role Status Dates Dr. Grant Krause MD Primary Care Provider, Refer ring Provider Active Dr. Chirag Barakat MD Attending Provider Active Team Status: Active Member Role Status Dates Dr. Grant Krause MD Primary Care Provider Active Rosana Shirley Attending Provider Active Team Status: Inactive Member Role Status Dates Dr. Grant Kruase MD Primary Care Provider Active Dr. Chirag Barakat MD Attending Provider, Referring Provider Active Jeweler Apprentice Relationship Specialty Start Date End Date Grant Krause MD [address] [place] [address] PCP - General 07/18/02 Alysia, Mo S [address] [place] [address] Physician Cardiology 01/25/19 Jeweler Apprentice Relationship Specialty Start Date End Date Grant Krause MD [address] [facility] [place] [address] PCP - General 07/18/02 Alysia, Mo S [address] [place] [address] Physician Cardiology 01/25/19 Jeweler Apprentice Relationship Specialty Start Date End Date Grant Krause MD [address] [facility] [place] [address] PCP - General 07/18/02 Alysia, [place] S [address] [place] [address] Physician Cardiology 01/25/19 Jeweler Apprentice Relationship Specialty Start Date End Date Grant Krause MD [address] [facility] [place] [address] PCP - General 07/18/02 Alysia, [place] S [address] [place] [address] Physician Cardiology 01/25/19 Jeweler Apprentice Relationship Specialty Start Date End Date Grant Krause MD [address] [facility] [place] [address] PCP - General 07/18/02 Alysia, [place] S [address] [address] Physician Cardiology 01/25/19 Jeweler Apprentice Relationship Specialty Start Date End Date Grant Krause MD [address] [place] [address] PCP - General 07/18/02 Alysia, [place] S [address] [address] Physician Cardiology 01/25/19 Jeweler Apprentice Relationship Specialty Start Date End Date Grant Krause MD [address] [place] [address] PCP - General 07/18/02 Alysia, [place] S [address] [address] Physician Cardiology 01/25/19 Jeweler Apprentice Relationship Specialty Start Date End Date Grant Krause MD [address] [place] [address] PCP - General 07/18/02 Alysia, [place] S [address] [address] Physician Cardiology 01/25/19 Jeweler Apprentice Relationship Specialty Start Date End Date Grant Krause MD [address] [place] [address] PCP - General 07/18/02 Mo Hatfield [address] [address] Physician Cardiology 01/25/19 Team Status: Inactive Member Role Status Dates Dr. Grant Krause MD Primary Care Provider, Refer ring Provider Active Nagi Gan SENIOR ORACLE DATABASE DEVELOPER, SENIOR ORACLE DATABASE DEVELOPER-C Attending Provider Active Team Status: Inactive Member Role Status Dates Dr. Grant Krause MD Primary Care Provider Active Dr. Garry Warren DO Emergency Provider Active Jeweler Apprentice Relationship Specialty Start Date End Date Grant Krause MD [address] [place] [address] PCP - General 07/18/02 Mo Hatfield MD [address] [address] Physician Cardiology 01/25/19 Jeweler Apprentice Relationship Specialty Start Date End Date Grant Krause MD [address] [place] [address] PCP - General 07/18/02 Mo Hatfield MD [address] [address] Physician Cardiology 01/25/19 Jeweler Apprentice Relationship Specialty Start Date End Date Grant Krause MD [address] [place] [address] PCP - General 07/18/02 Mo Hatfield MD [address] [address] Physician Cardiology 01/25/19 Jeweler Apprentice Relationship Specialty Start Date End Date Grant Krause MD [address] [place] [address] PCP - General 07/18/02 Mo Hatfield MD [address] [place] [address] Physician Cardiology 01/25/19 Jeweler Apprentice Relationship Specialty Start Date End Date Grant Krause MD [address] [place] [address] PCP - General 07/18/02 Mo Hatfield MD [address] [address] Physician Cardiology 01/25/19 Jeweler Apprentice Relationship Specialty Start Date End Date Grant Krause MD [address] [place] [address] PCP - General 07/18/02 Mo Hatfield MD [address] [address] Physician Cardiology 01/25/19 Jeweler Apprentice Relationship Specialty Start Date End Date Grant Krause MD [address] [place] [address] PCP - General 07/18/02 Mo Hatfield MD [address] [address] Physician Cardiology 01/25/19 Jeweler Apprentice Relationship Specialty Start Date End Date Grant Krause MD [address] [place] [address] PCP - General 07/18/02 Mo Hatfield MD [address] [place] [address] Physician Cardiology 01/25/19 Jeweler Apprentice Relationship Specialty Start Date End Date Grant Krause MD [address] [place] [address] PCP - General 07/18/02 Mo Hatfield MD [address] [address] Physician Cardiology 01/25/19 Team Status: Inactive Member Role Status Dates Dr. Grant Krause MD Primary Care Provider, Refer ring Provider Active Dr. Calderon Cordova MD Attending Provider Active Team Status: Inactive Member Role Status Dates Dr. Grant Krause MD Primary Care Provider Active Dr. Calderon Cordova MD Attending Provider, Referring Pr ovider Active Team Status: Active Member Role Status Dates Dr. Grant Krause MD Primary Care Provider Active Dr. Calderon Cordova MD Attending Provider Active Jeweler Apprentice Relationship Specialty Start Date End Date Grant Krause MD [address] [place] [address] PCP - General 07/18/02 Mo Hatfield MD [address] [address] Physician Cardiology 01/25/19 Jeweler Apprentice Relationship Specialty Start Date End Date Grant Krause MD [address] [place] [address] PCP - General 07/18/02 Mo Hatfield MD [address] [address] Physician Cardiology 01/25/19 Jeweler Apprentice Relationship Specialty Start Date End Date Grant Krause MD [address] [place] [address] PCP - General 07/18/02 Mo Hatfield MD [address] [address] Physician Cardiology 01/25/19 Jeweler Apprentice Relationship Specialty Start Date End Date Grant Krause MD [address] [place] [address] PCP - General 07/18/02 Mo Hatfield MD [address] [address] Physician Cardiology 01/25/19 Jeweler Apprentice Relationship Specialty Start Date End Date Grant Krause MD [address] [place] [address] PCP - General 07/18/02 Mo Hatfield MD [address] [address] Physician Cardiology 01/25/19 Jeweler Apprentice Relationship Specialty Start Date End Date Grant Krause MD [address] [place] [address] PCP - General 07/18/02 Mo Hatfield MD [address] [address] Physician Cardiology 01/25/19 Jeweler Apprentice Relationship Specialty Start Date End Date Grant Krause MD [address] [place] [address] PCP - General 07/18/02 Mo Hatfield MD [address] [address] Physician Cardiology 01/25/19 Jeweler Apprentice Relationship Specialty Start Date End Date Grant Krause MD [address] [place] [address] PCP - General 07/18/02 Mo Hatfield MD [address] [address] Physician Cardiology 01/25/19 Jeweler Apprentice Relationship Specialty Start Date End Date Grant Krause MD [address] [place] [address] PCP - General 07/18/02 Mo Hatfield MD [address] [address] Physician Cardiology 01/25/19 Jeweler Apprentice Relationship Specialty Start Date End Date Grant Krause MD [address] [place] [address] PCP - General 07/18/02 Mo Hatfield MD [address] [place] [address] Physician Cardiology 01/25/19 Jeweler Apprentice Relationship Specialty Start Date End Date Grant Krause MD [address] [place] [address] PCP - General 07/18/02 Mo Hatfield MD [address] [place] [address] Physician Cardiology 01/25/19 Jeweler Apprentice Relationship Specialty Start Date End Date Grant Krause MD [address] [place] [address] PCP - General 07/18/02 Mo Hatfield MD [address] [place] [address] Physician Cardiology 01/25/19 Jeweler Apprentice Relationship Specialty Start Date End Date Grant Krause MD [address] [place] [address] PCP - General 07/18/02 Mo Hatfield MD [address] [address] Physician Cardiology 01/25/19 Liat Smith, HIGH 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 [address] [place] [address] Cover Operator Internal Medicine 09/04/24 Jeweler Apprentice Relationship Specialty Start Date End Date Grant Krause MD [address] [place] [address] PCP - General 07/18/02 Mo Hatfield MD [address] [place] [address] Physician Cardiology 01/25/19 Liat Smith, HIGH 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 [address] [place] [address] Cover Operator Internal Medicine 09/04/24 Jeweler Apprentice Relationship Specialty Start Date End Date Grant Krause MD [address] [place] [address] PCP - General 07/18/02 Mo Hatfield MD [address] [place] [address], [place] [address] Physician Cardiology 01/25/19 Liat Smith, HIGH 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 [address] [place] [address] Cover Operator Internal Medicine 09/04/24 Jeweler Apprentice Relationship Specialty Start Date End Date Grant Krause MD [address] [place] [address] PCP - General 07/18/02 Mo Hatfield MD [address] [place] [address], [place] [address] Physician Cardiology 01/25/19 Liat Smith, HIGH 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 [address] [place] [address] Cover Operator Internal Medicine 09/04/24 Jeweler Apprentice Relationship Specialty Start Date End Date Grant Krause MD [address] [facility] [place] [address] PCP - General 07/18/02 Mo Hatfield MD [address] [place] [address] Physician Cardiology 01/25/19 Liat Smith, HIGH 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 [address] [facility] [place] [address] Cover Operator Internal Medicine 09/04/24 Jeweler Apprentice Relationship Specialty Start Date End Date Grant Krause MD [address] [facility] [place] [address] PCP - General 07/18/02 Mo Hatfield MD [address] [place] [address] Physician Cardiology 01/25/19 Lita Smith, HIGH 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 [address] [facility] [place] [address] Cover Operator Internal Medicine 09/04/24 Jeweler Apprentice Relationship Specialty Start Date End Date Grant Krause MD [address] [facility] [place] [address] PCP - General 07/18/02 Mo Hatfield MD [address] [place] [address] Physician Cardiology 01/25/19 Liat Smith, HIGH 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 [address] [place] [address] Cover Operator Internal Medicine 09/04/24 Jeweler Apprentice Relationship Specialty Start Date End Date Grant Krause MD [address] [place] [address] PCP - General 07/18/02 Mo Hatfield MD [address] [facility] [address] [place] [address] Physician Cardiology 01/25/19 Liat Smith, HIGH 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 [address] [place] [address] Cover Operator Internal Medicine 09/04/24 Jeweler Apprentice Relationship Specialty Start Date End Date Grant Krause MD [address] [place] [address] PCP - General 07/18/02 Mo Hatfield MD [address] [place] [address] Physician Cardiology 01/25/19 Liat Smith, HIGH 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 [address] [place] [address] [facility] Internal Medicine 09/04/24 Jeweler Apprentice Relationship Specialty Start Date End Date Grant Krause MD [address] [place] [address] PCP - General 07/18/02 Mo Hatfield MD [address] [place] [address] Physician Cardiology 01/25/19 Liat Smith, HIGH 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 [address] [place] [address] Cover Operator Internal Medicine 09/04/24 Jeweler Apprentice Relationship Specialty Start Date End Date Grant Krause MD [address] [place] [address] PCP - General 07/18/02 Mo Hatfield MD [address] [facility] [address] [place] [address] Physician Cardiology 01/25/19 Liat Smith, HIGH 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 [address] [place] [address] Cover Operator Internal Medicine 09/04/24 Jeweler Apprentice Relationship Specialty Start Date End Date Grant Krause MD [address] [place] [address] PCP - General 07/18/02 Mo Hatfield MD [address] [facility] [address] [place] [address] Physician Cardiology 01/25/19 Liat Smith, HIGH 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 [address] [place] [address] Cover Operator Internal Medicine 09/04/24 Team Status: Active Member Role/Relationship Status Dates Dr. Grant Krause MD Primary Care Provider Active Team Status: Inactive Member Role/Relationship Status Dates Dr. Grant Krause MD Primary Care Provider Active Start: May 09, 2025 End: May 09, 2025 Tito Evans SENIOR ORACLE DATABASE DEVELOPER, SENIOR ORACLE DATABASE DEVELOPER-C Attending Provider Active Start: May 09, 2025 End: May 09, 2025 Tito Evans SENIOR ORACLE DATABASE DEVELOPER, SENIOR ORACLE DATABASE DEVELOPER-C Referring Provider Active Start: May 09, 2025 End: May 09, 2025 Jeweler Apprentice Relationship Specialty Start Date End Date Grant Krause MD [address] [place] [address] PCP - General 07/18/02 Mo Hatfield MD [address] [id number] Physician Cardiology 01/25/19 Liat Smith, HIGH 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 [address] [place], [place] [address] Cover Operator Internal Medicine 09/04/24 Goals (unrecognized section and content) Goals may be documented in a n alternate sectionGoals may be documented in an alternate sectionGoals may be documented in an alternate sectionGoals may be documented in an alternate sectionGoals may be documented in an alternate sectionGoals may be documented in an alternate sectionGoals may be documented in an alternate sectionGoals may be documented in an alternate sectionGoals may be documented in an alternate sectionGoals may be documented in an alternate sectionGoals may be documented in an alternate section Inactive Administered Medications - up to 3 most recent administrations Administered Medications (un recognized section and content) Medication Order MAR Action Action Date Dose Rate Site betamethasone acetate-betamethasone sodium phosphate 6 mg injection (CELESTONE) 6 mg, Injection - FOR ORTHO USE ONLY, ONCE, 1 dose, Starting on 11/08/23 at 1417, Until 11/08/23 at 1417 Given 11/08/2023 2:17 PM EST 6 mg Knee, Left lidocaine (PF) 10 mg/mL (1 %) 4 mL injection (XYLOCAINE) 4 mL, Injection - FOR ORTHO USE ONLY, ONCE, 1 dose, Starting on 11/08/23 at 1417, Until 11/08/23 at 1417 Given 11/08/2023 2:17 PM EST 4 mL Knee, Left (unrecognized sect ion and content) No Status Records FoundNo Status Records FoundNo Status Records Found INFORMATION SOURCE (unrecogn ized section and content) DATE CREATED AUTHOR 05/15/2025 [facility] DATE CREATED AUTHOR AUTHOR'S ORGANIZ ATION 07/12/2025 [facility] nt DATE CREATED AUTHOR AUTHOR'S ORGANIZ ATION 08/06/2025 [facility] FOR RECORDS PERTAINING TO PATIENTS WHO ARE OR HAVE BEEN ENROLLED IN A CHEMICAL DEPENDENCY/SUBSTANCEABUSE PROGRAM, SOME INFORMATION MAY BE OMITTED. This clinical summary was aggregated from multiple sources. Caution should be exercised in using it in the provision of clinical care. This summary normalizes information from multiple sources, and as a consequence, information in this document may materially change the coding, format and clinical context of patient data. In addition, data may be omitted in some cases. CLINICAL DECISIONS SHOULD BE BASED ON THE PRIMARY CLINICAL RECORDS. [employer] [facility]. provides no warranty or guarantee of the accuracy or completeness of information in this document.
[2025-09-23 02:31] LABS: Troponin T High Sensitivity 18 ng/L (<=22)
[2025-09-23 02:48] VITALS: BP 132/94; PULSE 86; RESP 18; O2SAT 93
[2025-09-23 03:04] VITALS: BP 132/94; PULSE 84; RESP 18; TEMP 36.4; O2SAT 95
== END 2025-09-23 03:15 | disposition home or self-care (01) ==
PROVIDERS: Emergency Provider Specialist/Technologist Athletic Trainer; PCP Internal Medicine; Visit Provider Specialist/Technologist Athletic Trainer
DX: J10.1 Influenza due to other identified influenza virus with other respiratory manifestations (principal); E11.9 Type 2 diabetes mellitus without complications; E78.00 Pure hypercholesterolemia, unspecified; I10 Essential (primary) hypertension; M79.10 Myalgia, unspecified site; B34.9 Viral infection, unspecified; R19.7 Diarrhea, unspecified; R11.0 Nausea; I25.10 Atherosclerotic heart disease of native coronary artery without angina pectoris
CPT/HCPCS: 71046; 80053; 84484; 85025; 87631; 93005; 96361; 96374; 99283; A4216; J2405

== ENCOUNTER 2025-09-26 16:50 | Emergency (ER) | payer MEDICARE, MEDICAID, SELFPAY ==
[2025-09-26 16:53] VITALS: BP 99/83; PULSE 91; RESP 18; TEMP 36.1; O2SAT 94
[2025-09-26 17:50] VITALS: BMI 34.8
[2025-09-26 17:51] VITALS: BP 91/70; PULSE 83; RESP 16; TEMP 36.8; O2SAT 96
[2025-09-26 17:56] VITALS: BP 91/70; PULSE 84; RESP 16; TEMP 36.8; O2SAT 96
[2025-09-26 18:00] VITALS: BP 119/82; PULSE 82; RESP 16; TEMP 36.8; O2SAT 96
--- NOTE | 2025-09-26 18:12 | RAD_ITS ---
PROCEDURE: CHEST PA AND LATERAL 09/26/2025 REASON FOR EXAM: COUGH, SOB, COPD TECHNIQUE: Procedure Code: RADCXR Modality: DX Procedure: CHEST PA AND LATERAL COMPARISON: 09/23/2025 FINDINGS: Lungs/Pleura: Clear. No focal consolidation, pneumothorax or pleural effusion. Chronic interstitial emphysematous lung changes with hyperinflated lungs/flattened diaphragms reflecting COPD. Heart/Mediastinum: Within normal limits. No vascular congestion. Bones/Soft tissues: Degenerative changes of the spine. RAD/Chest PA and Lateral IMPRESSION: No acute pulmonary disease. COPD/emphysema. Reading Location: [id number]
--- NOTE | 2025-09-26 18:12 | EX.ED.VIS.UR ---
HPI HPI - URI History of Present Illness Chief Complaint: Cough Informant: patient Narrative Narrative: Patient is a 70-year-old male with a history of COPD presenting with cough and dyspnea. - Reports cough for approximately one week, with associated pharyngitis and mild dyspnea. - Denies hemoptysis or fever. Reports chest congestion with phlegm production and some mild dyspnea. - Evaluated in the ED three days ago, diagnosed with influenza, and had a negative CXR. - Symptoms have not worsened since the last visit, but he had an unrelated outpatient appointment today and he states that the nurse advised that he go to urgent care and get checked out. Urgent care was closed so we ended up here in the ED. - Uses daily inhalers and a rescue inhaler; reports no significant relief from the rescue inhaler. - Has a scheduled appointment next week for diabetes management and Inspire device evaluation for sleep apnea. ROS ROS ED Constitutional Constitutional ED: Denies chills or fever(s) ENT ENT ED: Reports nasal congestion, rhinorrhea and sore throat; Denies ear pain Cardiovascular Cardiovascular: Denies chest pain or palpitations Respiratory/Chest Respiratory/Chest: Reports cough, dyspnea, dyspnea on exertion and wheezing Gastrointestinal Gastrointestinal: Denies abdominal pain, diarrhea, nausea or vomiting Genitourinary Genitourinary ED: Denies dysuria or hematuria Musculoskeletal Musculoskeletal: Denies myalgias or neck pain Integumentary Denies abscess or rash Neurologic Neurologic: Denies headache(s), paresthesias or weakness Psychiatric Psychiatric: Denies depression or suicidal thoughts Endocrine Endocrinology: Denies polydipsia or polyuria [facility] Medical History (Updated 09/26/25 @ 19:[address] Allen Dias MD) COPD (chronic obstructive pulmonary disease) Obesity (BMI 30.0-34.9) Tinnitus COVID-19 virus infection Leg edema, left ALBAN on CPAP Presence of stent in coronary artery (~04/05/12) Pure hypercholesterolemia Essential hypertension Atherosclerotic heart disease of [place] coronary artery without angina pectoris Chest pain Type II diabetes mellitus Hyperlipidemia Hypertension Home Medications ?Medication ?Instructions ?Recorded ?Last Taken ?Type aspirin 81 mg chewable tablet 81 mg PO DAILY@0800 heart [facility] 07/20/15 05/26/22 History nitroglycerin 0.4 mg sublingual 0.4 mg sublingual Q5M PRN Chest 07/23/15 01/03/19 Rx tablet Pain #25 tabs tamsulosin 0.4 mg capsule 0.4 mg PO DAILY 09/08/16 01/03/19 History fenofibrate 160 mg tablet 160 mg PO DAILY cholesterol 09/10/16 01/03/19 History albuterol sulfate 90 mcg/actuation 2 puff inhalation Q6H PRN 10/30/20 Unknown History aerosol inhaler (ProAir HFA) Shortness Of Breath Or Wheezing lisinopril 10 mg tablet 10 mg PO DAILY blood pressure 10/30/20 05/26/22 History metoprolol tartrate 25 mg tablet 25 mg PO BID blood pressure 05/08/21 05/26/22 History empagliflozin 25 mg tablet 25 mg PO DAILY diabetes 12/04/21 Unknown History (Jardiance) metformin 500 mg tablet 1,000 mg PO BID diabetes 12/04/21 05/25/22 History rosuvastatin 40 mg tablet 40 mg PO DAILY cholesterol 12/04/21 Unknown History glipizide 2.5 mg tablet, extended 2.5 mg PO DAILY diabetes 05/14/23 Unknown History release 24 hr gabapentin 100 mg capsule 100 mg PO BID nerve pain 12/06/23 Unknown History sildenafil 50 mg tablet (Viagra) 50 mg PO QDAY PRN sexual activity 06/06/24 Unknown History ranolazine 1,000 mg 1,000 mg PO BID #180 tabs 09/18/24 Unknown Rx tablet,extended release,12 hr potassium chloride 10 mEq 10 meq PO DAILY #90 TABLETS 10/18/24 Unknown Rx tablet,extended release furosemide 20 mg tablet 20 mg PO DAILY #30 TABLETS 09/07/25 Unknown Rx prednisone 20 mg tablet 40 mg (2 x 20 mg) PO DAILY 5 days 09/26/25 Unknown Rx #10 tabs Allergy/AdvReac Type Severity Reaction Status Date / Time No Known Allergies Allergy Verified 09/26/25 16:53 Family History Sister Hypertension Surgical History History of left heart catheterization (LHC) (~05/26/22) History of umbilical hernia repair Presence of coronary angioplasty implant and graft (~04/05/12) Social History Smoking Status: Never smoker alcohol intake: former substance use type: former substance user Date of last use: stopped marijuana caffeine: Yes EXAM Physical Exam Const Vital Signs: 09/26/25 16:53 09/26/25 17:51 09/26/25 17:56 Temperature 96.9 F L 98.3 F 98.3 F Temperature Source Temporal Oral Oral Pulse Rate 91 83 84 Respiratory Rate 18 16 16 Respiratory Effort Respiratory Depth Respiratory Pattern Blood Pressure 99/83 H 91/70 91/70 Blood Pressure Mean 88 77 77 Pulse Ox 94 96 96 Oxygen Delivery Method Room Air Room Air Room Air 09/26/25 18:00 09/26/25 18:26 09/26/25 18:27 Temperature 98.3 F Temperature Source Oral Pulse Rate 82 80 Respiratory Rate 16 16 Respiratory Effort Normal Non-Labored Respiratory Depth Normal Respiratory Pattern Normal Normal Blood Pressure 119/82 H Blood Pressure Mean 94 Pulse Ox 96 Oxygen Delivery Method Room Air Positive well nourished and well developed Constitutional Narrative: Converses in full sentences no distress General Appearance ED: well developed and NAD HEENT Reports moist mucous membranes normocephalic and atraumatic Throat: Negative for posterior oropharynx abnormal Eyes PERRL and EOMs intact bilaterally Neck no lymphadenopathy, supple and no meningeal signs Resp normal respiratory effort Resp Narrative: Diffuse mild expiratory wheezes with mildly prolonged expiratory phase. Sounds a little diminished on the right. Trachea midline. Effort and Inspection: Negative for retractions Cardio no murmurs Rate: regular rate Rhythm: regular rhythm Extremity normal to inspection and full ROM Extremity Narrative: No edema Neuro oriented x3, CN's II-XII intact bilaterally and no sensory deficits noted Sensorium / Orientation: alert Motor Exam: strength 5/5 throughout Psych mental status grossly normal Skin Lesions: no lesions Rashes: no rashes MDM MDM MDM Narrative Medical decision making narrative: Assessment: The patient is a 70-year-old male with PMH of COPD presenting for one-week history of cough, chest congestion, and mild dyspnea after testing positive for influenza three days ago. Repeat chest x-ray today again shows no infiltrate, making pneumonia unlikely. Clinical picture most consistent with influenza infection with superimposed COPD exacerbation causing wheeze and cough. Plan: - Nebulized breathing treatment administered in ED with symptomatic improvement - Single ED dose prednisone given; prescription for short outpatient course sent to [facility] to start tomorrow - Tamiflu not indicated due to timing since patient has had symptoms for about a week. - Encouraged use of home rescue inhaler as needed - Discharged home in stable condition Diagnostics: - Chest x-ray 2v: clear lung barrett, no consolidation or infiltrate; no radiographic evidence of pneumonia. Independently interpreted by Allen carrasco. Reevaluations: - Patient reassessed after breathing treatment; reports mild improvement, remains hemodynamically stable, chest x-ray reviewed with patient. Diagnoses: Influenza due to other identified influenza virus with other respiratory manifestations; Chronic obstructive pulmonary disease with (acute) exacerbation Radiography Diagnostic Testing: Clinical Impression(s) from Imaging Studies Chest X-Ray 09/26/25 18:12 IMPRESSION: No acute pulmonary disease. COPD/emphysema. Reading Location: [id number] Discharge Plan Triage Chief Complaint: Cough Other Complaint: Diarrhea ED Provider: Allen Dias Dx/Rx/DC Orders Clinical Impression: Influenza A, Acute exacerbation of chronic obstructive pulmonary disease (COPD) Instructions: ED COPD Flare Prescriptions: New prednisone 20 mg tablet 40 mg PO DAILY 5 Days Qty: 10 0RF No Action lisinopril 10 mg tablet 10 mg PO DAILY albuterol sulfate [ProAir HFA] 90 mcg/actuation HFA aerosol inhaler 2 puff INHALATION Q6H PRN (Reason: Shortness Of Breath Or Wheezing) rosuvastatin 40 mg tablet 40 mg PO DAILY Jardiance 25 mg tablet 25 mg PO DAILY glipizide 2.5 mg tablet extended release 24hr 2.5 mg PO DAILY Patient Comments: Take 1 tablet by mouth once daily. gabapentin 100 mg capsule 100 mg PO BID sildenafil [Viagra] 50 mg tablet 50 mg PO QDAY PRN (Reason: sexual activity) Rx Instructions: administer 30 minutes to 4 hours before activity aspirin 81 MG tablet,chewable 81 mg PO DAILY@0800 Patient Comments: antiplatelet nitroglycerin 0.4 MG tablet 0.4 mg SUBLINGUAL Q5M PRN (Reason: Chest Pain) Qty: 25 0RF Patient Comments: CHEST PAIN tamsulosin 0.4 MG capsule 0.4 mg PO DAILY fenofibrate 160 MG tablet 160 mg PO DAILY metoprolol tartrate 25 mg tablet 25 mg PO BID metformin 500 mg tablet 1,000 mg PO BID ranolazine 1,000 mg tablet extended release 12 hr 1,000 mg PO BID Qty: 180 4RF potassium chloride 10 mEq tablet extended release 10 meq PO DAILY Qty: 90 3RF furosemide 20 mg tablet 20 mg PO DAILY Qty: 30 1RF Primary Care Provider: Grant Krause Referrals: Grant Krause MD [Primary Care Provider, Internal Medicine] - 3-5 Days if not improving Activity Restrictions/Additional Instructions: - Prednisone short course for COPD flare: you received today?s dose in clinic and your prescription has been sent to [facility]; start the medication tomorrow. - Use your albuterol rescue inhaler as needed to relieve wheezing. - Continue your daily COPD inhalers exactly as prescribed. Print Language: Sami Disposition Disposition: Home, Self Care
--- OUTSIDE RECORDS SUMMARY | 2025-09-26 18:20 | XMS RPT_ITS | CCD ---
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 Grant Krause Primary Care Provider Hortencia Mathis Attending Provider Unavailable Dr. Grant Krause Referring Provider Roof CUSTOMER RELATIONS SPECIALIST, CUSTOMER RELATIONS SPECIALIST-Carmen Chao Attending Provider Dr. Grant Krause Primary Care Provider Dr. Grant Krause Referring Provider Dr. Chirag Barakat Attending Provider Dr. Chirag Barakat Referring Provider Dr. Chirag Barakat Other Provider Roof CUSTOMER RELATIONS SPECIALIST, IVELISSE-Carmen Chao Attending Provider Grant Krause MD Primary Care Provider Alysia, Mo S Unavailable Alysia, Mo S Unavailable Grant Krause MD Primary Care Provider Alysia, Joseph S Unavailable Dr. Grant Krause Primary Care Provider Rosana Shirley Attending Provider Unavailable Dr. Grant Krause Referring Provider Dr. Chirag Barakat Attending Provider Alysia Joseph S Unavailable Dr. Grant Krause Primary Care Provider Jimi, Dr. Burns Referring Provider Roof CUSTOMER RELATIONS SPECIALIST, CUSTOMER RELATIONS SPECIALIST-C Nagi Chao Attending Provider Alysia FRENCH, Mo S Unavailable Dr. Grant Krause Primary Care Provider Dr. Grant Krause Referring Provider Art, Dr. Mancera Attending Provider Jimi FRENCH, Grant Chao Primary Care Provider Mary WHALEN.Liat ROJAS Unavailable Jimi FRENCH, Dr. Burns Primary Care Provider Nathan CUSTOMER RELATIONS SPECIALIST-C, Tito Howell Attending Provider Nathan CUSTOMER RELATIONS SPECIALIST-C, Tito Howell Referring Provider Grant Krause Primary Care Unavailable Grant Krause Referring Unavailable ArtCalderon calabrese Attending Unavailable Jimi, Grant Primary Care Unavailable Chirag Cristina Attending Unavailable Alysia, Joseph Attending Unavailable Jimi, Grant Primary Care Unavailable CristinaChirag Admitting Unavailable Chirag Cristina Consulting Unavailable Quyen Broussard Consulting Unavailable Grant Krause Primary Care Unavailable Calderon Cordova Attending Unavailable ArtCalderon calabrese Referring Unavailable Jimi, Grant Primary Care Unavailable Nathan CUSTOMER RELATIONS SPECIALIST, Tito M Attending Unavailable Nathan CUSTOMER RELATIONS SPECIALIST, Tito M Referring Unavailable Jimi, Grant Primary [...] Drug Class(es) Dates Sig (Normalized) Sig (Original) [id number] 200 actuat albuterol 0.09 mg/actuat metered dose [...] Comment on above: Take 1 tablet by luam th once daily. Take 1 tablet once [...] Comment on above: Take 1 capsule by [facility] twice daily for 90 days. Take 1 capsule by mo [facility] twice daily for 180 days. Take 1 capsule by mo [facility] two times a day for 180 days. [...] on above: Take 2 tablets by mo [facility] twice daily with meals. . metoprolol tartrate [...] luma once daily TOPROL XL 50 MG [id number] One tablet by mouth daily METOPROLOL SUCCINATE [id number] Anita Dietrich RN Start: 07-22-2015 End: 07-23-2015 [...] 3 as needed for chest pain. NITROGLYCERIN [id number] Rosana Shirley RN Start: 07-22-2015 End: 09-18-2024 nitroglycerin sublingual (NI TROQUICK) 0.4 mg SL tablet Indications: Coronary artery disease involving match-e-be-nash-she-wish band coronary artery of match-e-be-nash-[place]wish band heart without angina pectoris Dissolve 1 tablet [...] 12 hr Indications: Coronary artery disease involving match-e-be-nash-she-wish band coronary artery of match-e-be-nash-she-wish band heart without angina pectoris Take 1 tablet [...] on above: Take 1 capsule by mo [facility] once daily. Completed/Discontinued Medications Medication Drug Class(es) Dates Sig (Normalized) Sig (Original) aspirin 81 mg oral strip (20 sources) Nonsteroidal Anti-inflammatory Drug Start: 07-30-2015 take 1 tablet by mouth once daily ASPIRIN 81 MG TABS One tablet by mouth daily ASPIRIN [id number] Anita Dietrich RN Start: 07-20-2015 take 1 [...] tablet by mouth every evening ATORVASTATIN CALCIUM [id number] Anita Dietrich RN Start: 07-22-2015 End: 07-23-2015 [...] sodium phosphate 6 mg injection (CELESTONE) C,E,Copper,Zinc 78-Jcvvv0p-U ut (Ocuvite Adult 50 Plus) 250-5-1 mg capsule (1 source) Start: 11-11-2020 End: 12-04-2021 C,E,Copper,Zinc 26-Qabvx1z-F ut (Ocuvite Adult 50 Plus) 250-5-1 mg capsule Discontinued 1 NMA PO DAILY November 11, 2020 1:00am December 04, 2021 5:42pm C,E,Zinc,Copper 63-Jfket6g-H ut (Ocuvite Adult 50 Plus) 250-5-1 mg capsule (10 sources) Start: 11-11-2020 End: 12-04-2021 C,E,Zinc,Copper 78-Rhllw9j-Z ut (Ocuvite Adult 50 Plus) 250-5-1 mg capsule Discontinued 1 CAP PO DAILY November 11, 2020 5:42pm December 04, 2021 5:42pm Start: 11-11-2020 End: 12-04-2021 C,E,Zinc,Copper 86-Ststl7q-H ut (Ocuvite Adult 50 Plus) 250-5-1 mg capsule Discontinued 1 CAP PO DAILY November 11, 2020 12:00am December 04, 2021 4:42pm Start: 11-11-2020 End: 12-04-2021 C,E,Zinc,Copper 65-Gfbff4z-V ut (Ocuvite Adult 50 Plus) 250-5-1 mg [...] once daily ISOSORBIDE MONONITRATE ER 120 MG MD34I-SAY (Imdur) One tablet by mouth daily ISOSORBIDE MONONITRATE [id number] Rosana Shirley RN 10 ml lidocaine hydrochloride [...] daily for 5 days polyethylene glycol 3350 038400 mg / potassium chloride 2970 mg / sodium bicarbonate 6740 mg / sodium chloride 5860 mg / sodium sulfate 34784 mg powder for oral solution (2 sources) [...] Coronary atherosclerosis; Translations: [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] Onset: 03-04-2012 [...] 10-14-2016 Episodic Other aftercare (2 sources) Other fci (current) drug therapy; Translations: [Other intermission coordinator (current) drug therapy] Onset: 07-30-2015 07-30-2015 Episodic [...] % Stenosis, Previously placed stent has an - 25 % restenosis; OM 2: Proximal [...] Test Name Value Interpretation Reference Range Facility [facility] 07-30-2025 CNOV Office Visit (ORTHWS ) XAVI CABELLO ([id number]) 1955 Date Time Provider Department 07/30/25 11:45 [...] these instructions. Informed Consent Consent Obtained: Verbal Hamilton Protocol A moment to CARE was completed. [...] No implant(s) inserted. Referring Provider: NILDA KIM [[id number]] Allergies As of Date: 07/30/2025 (No Known Allergies) Date Reviewed: 07/30/2025 Reviewed by: Arabella Cohen MA - Fully Assessed Reason for Visit: Follow Up [171] Primary Visit Diagnosis:Primary osteoarthritis of left knee [M17.12] Order(s):Large Joint Arthro/Inj: L knee joint [QSV520] Order #: [id number] [] betamethasone acetate-betamethasone sodium phosphate 6 mg [...] 03/04/2012 03/15/2012 SUMMARY [V999.95] 03/04/2012 03/16/2012 Smoking [ZFA7910] 03/04/2012 03/04/2012 Hypertension [I10] 03/04/2012 10/06/2017 Alcohol abuse [F10.10] 03/05/2012 03/16/2012 CAD (coronary artery disease), match-e-be-nash-she-wish band coronary *03/05/2012 Stented coronary artery [Z95.5] 03/08/2012 Unstable angina [I20.0] 07/28/2013 09/06/2013 BPH with obstruction/lower urinary tract sympto*12/11/2015 Lower urinary tract symptoms (LUTS) [R39.9] 12/11/2015 05/04/2018 Marijuana use [F12.90] Obesity (BMI 30-39.9) [E66.9] 07/30/2021 Essential hypertension [I10] 12/13/2015 Male erectile dysfun (more content not included)... Normal [facility] MRI 3D BRAIN QUANTon -14-2 025 MRI 3D BRAIN QUANT * * *Final Report* * * DATE OF EXAM: Jul 10 2025 3:27PM [facility] 7867 - MRI 3D BRAIN QUANT [...] = Focal Lesions 2 = Beginning of Republic 3 = Diffuse Involvement of Entire Region [...] results from the analysis charts for details. Social And Political Studies Professor: CYNTHIA Transcribe Date/Time: Jul 10 2025 3:33P Dictated by : CHACHA VILLANUEVA MD This examination was interpreted and the report reviewed and electronically signed by: CHACHA VILLANUEVA MD on Jul 10 2025 4:44PM EST [id number] [facility] MRI BRAIN W QUANT WO IVCONon 07-10-2025 MRI BRAIN W QUANT WO IVCON * * *Final Report* * * DATE OF EXAM: Jul 10 2025 3:27PM [facility] 3015 - MRI BRAIN W QUANT [...] dementia protocol and 3-D post-processing using the Figment software at an independent workstation with concurrent [...] = Focal Lesions 2 = Beginning of [place] 3 = Diffuse Involvement of Entire Region [...] results from the analysis charts for details. Social And Political Studies Professor: CYNTHIA Transcribe Date/Time: Jul 10 2025 3:33P Dictated by : CHACHA VILLANUEVA MD This examination was interpreted and the report reviewed and electronically signed by: CHACHA VILLANUEVA MD on Jul 10 2025 4:44PM EST [id number] [facility] CNOVon 06-27-2025 CNOV Office Visit (CHRISTINAR ) XAVI CABELLO ([id number]) 1955 M Date Time Provider Department 06/27/25 [...] - You may need to visit the [facility] twice a year for follow-up care [...] Inspire device, please contact our office. Terri Aguirer MD 06/27/2025 5:49 PM Signed Reason for [...] nerves II-XII (more content not included)... Normal [facility] CNOVon 06-01-2025 CNOV Office Visit (PODIWS ) XAVI CABELLO ([id number]) 1955 M Date Time Provider Department 06/01/25 [...] (or decreased sensation in your feet) a bottom hoop driver should always cut your toenails. Be Careful [...] Go to your health care provider or bottom hoop driver to treat these conditions. Margarito Joseph 06/01/2025 [...] pulses are (more content not included)... Normal [facility] CNOVon 05-10-2025 CNOV Office Visit (CHRISTINAR ) XAVI CABELLO ([id number]) 1955 M Date Time Provider Department 05/10/25 1:30 PM TERRI AGUIRRE During your visit today, we recorded the following information about you: Pulse Respiration Blood pressure Weight Normal [facility] TSH SerPl-aCncon 05-10-2025 TSH Qn 1.700 m[IU]/L Normal 0.270-4.[address] [facility] Comment on above: Order Comment: Speci men Type: BLOOD SPECIMENOrdering Facility: [facility] Address: [address] [place] [address] Performed By: #### 3 016-3, 2132-9 ####[facility] LABCLIA [id number] [place] [address] [place] Vit [facility]25 Cobalamin (Vitamin B12) [Mass/Vol] 530 pg/mL Normal 232-[address] [facility] Comment on above: Order Comment: Speci men Type: BLOOD SPECIMENOrdering Facility: [facility] Address: [address] [place] [address] Performed By: #### 3 016-3, 2132-9 ####[facility] LABCLIA [id number] [facility]ENTERJennifer [address] CNOVon 04-23-2025 CNOV Office Visit (ORTHWS ) XAVI CABELLO ([id number]) 1955 Date Time Provider Department 04/23/25 2:30 [...] these instructions. Informed Consent Consent Obtained: Verbal Hamilton Protocol A moment to CARE was completed. [...] hospitalized patients) applicable. Referring Provider: NILDA KIM [[id number]] Allergies As of Date: 04/23/2025 (No Known Allergies) Date Reviewed: 04/23/2025 Reviewed by: Arabella Cohen MA - Fully Assessed Reason for Visit: Follow Up [171] Primary Visit Diagnosis:Primary osteoarthritis of left knee [M17.12] Order(s):Large Joint Arthro/Inj: L knee joint [IGJ555] Order #: [id number] [] betamethasone acetate-betamethasone sodium phosphate 6 mg [...] 03/04/2012 03/15/2012 SUMMARY [V999.95] 03/04/2012 03/16/2012 Smoking [RSB1270] 03/04/2012 03/04/2012 Hypertension [I10] 03/04/2012 10/06/2017 Alcohol abuse [F10.10] 03/05/2012 03/16/2012 CAD (coronary artery disease), match-e-be-nash-she-wish band coronary *03/05/2012 Stented coronary artery [Z95.5] 03/08/2012 Unstable angina [I20.0] 07/28/2013more content not included)... Normal [facility] Large Joint Arthro/Inj: L nicolle ee jointon [...] these instructions. Informed Consent Consent Obtained: Verbal Hamilton Protocol A moment to CARE was completed. [...] the bedside nurse for hospitalized patients) applicable. [facility] CNOVon 04-10-2025 CNOV Office Visit (INTMWS ) XAVI CABELLO ([id number]) 1955 M Date Time Provider Department 04/10/25 1:40 PM LIAT SMITH INTMWS During your visit today, we recorded the following information about you: Pulse Respiration Blood pressure Weight 68/minute 14/minute 126/72 99.9 kg Height 1.69 m Liat Smith, GAME PRESERVE MANAGER.SUPPORT ANALYST 04/10/2025 2:24 PM Signed Xavi Dempseybull is [...] as Physician (Cardiology) Liat Smith APRN.BOB as Medical Voucher Clerk (Internal Medicine) Dr. Joseph-podiatry [facility] Medical/Family history review Reviewed and updated problem [...] 6. Enco (more content not included)... Normal [facility] Comprehensive metabolic 2000 panelon 04-10-2025 Albumin [Mass/Vol] 4.2 g/dL 3.9 - 4.9 g/dL [facility] ALP [Catalytic activity/Vol] 42 U/L 38 - 113 U/L [facility] ALT [Catalytic activity/Vol] 15 U/L 10 - 54 U/L [facility] Anion gap [Moles/Vol] 13 mmol/L 8 - 15 mmol/L [facility] AST [Catalytic activity/Vol] 26 U/L 14 - 40 U/L [facility] Bilirubin [Mass/Vol] 0.4 mg/dL 0.2 - 1 .3 mg/dL [facility] Calcium [Mass/Vol] 9.5 mg/dL 8.5 - 10. 2 mg/dL [facility] Chloride [Moles/Vol] 101 mmol/L 98 - 10 7 mmol/L [facility] CO2 [Moles/Vol] 24 mmol/L 22 - 30 mmol/L [facility] Creatinine [Mass/Vol] 1.21 mg/dL 0.73 - 1.22 mg/dL [facility] GFR/1.73 sq M.predicted among non-blacks MDRD (S/P/Bld) [Vol rate/Area] 64 mL/min/{1.73_m2} - PINF [facility] Comment on above: Estimated Glomerular Filtration [...] 141 mg/dL High 74 - 99 mg/dL [facility] Comment on above: The [place] Diabete s Association (ADA) provides guidance for [...] Standards of Medical Care in Diabetes 2016, [place] Diabetes Association. Diabetes Care. 2016.39(Suppl 1). Interpretation and review of laboratory results Abnormal [facility] Potassium [Moles/Vol] 4.9 mmol/L 3.7 - 5.1 mmol/L [facility] Protein [Mass/Vol] 6.9 g/dL 6.3 - 8.0 g/dL [facility] Sodium [Moles/Vol] 138 mmol/L 136 - 144 mmol/L [facility] Urea nitrogen [Mass/Vol] 19 mg/dL 9 - 24 mg/dL [facility] Albumin [Mass/Vol] 4.2 g/dL Normal 3.9-4.9 [facility] Comment on above: Order Comment: Speci men Type: BLOOD SPECIMENOrdering Facility: [facility] Address: [address] [place] [address] Performed By: #### 2 4323-8 ####[facility] LABCLIA [id number] [place] [address] [place] ALP [Catalytic activity/Vol] 42 U/L Normal 38-[address] [facility] Comment on above: Order Comment: Speci men Type: BLOOD SPECIMENOrdering Facility: [facility] Address: [address] [place] [address] Performed By: #### 2 4323-8 ####[facility] LABCLIA [id number] [place] [address] [place] ALT [Catalytic activity/Vol] 15 U/L Normal 10-[address] [facility] Comment on above: Order Comment: Speci men Type: BLOOD SPECIMENOrdering Facility: [facility] Address: [address] [place] [address] Performed By: #### 2 4323-8 ####[facility] LABCLIA [id number] [facility] [place] [id number] [place] Anion gap [Moles/Vol] 13 mmol/L Normal 8-15 [facility] Comment on above: Order Comment: Speci men Type: BLOOD SPECIMENOrdering Facility: [facility] Address: [address] [place] [address] Performed By: #### 2 4323-8 ####[facility] LABCLIA [id number] [address] [place] [address] [place] AST [Catalytic activity/Vol] 26 U/L Normal 14-[address] [facility] Comment on above: Order Comment: Speci men Type: BLOOD SPECIMENOrdering Facility: [facility] Address: [address] [place] [address] Performed By: #### 2 4323-8 ####[facility] LABCLIA [id number] [place] [id number] [place] Bilirubin [Mass/Vol] 0.4 mg/dL Normal 0.2-1.3 [facility] Comment on above: Order Comment: Speci men Type: BLOOD SPECIMENOrdering Facility: [facility] Address: [address] [place] [address] Performed By: #### 2 4323-8 ####[facility] LABCLIA [id number] [place] [address] [place] Calcium [Mass/Vol] 9.5 mg/dL Normal 8.5-10.2 [facility] Comment on above: Order Comment: Speci men Type: BLOOD SPECIMENOrdering Facility: [facility] Address: [address] [place] [address] Performed By: #### 2 4323-8 ####[facility] LABCLIA [id number] [facility] [place] [id number] [place] Chloride [Moles/Vol] 101 mmol/L Normal 98-107 [facility] Comment on above: Order Comment: Speci men Type: BLOOD SPECIMENOrdering Facility: [facility] Address: [address] [place] [address] Performed By: #### 2 4323-8 ####[facility] LABCLIA [id number] [facility] [place] [id number] [place] CO2 [Moles/Vol] 24 mmol/L Normal 22-[address] [facility] Comment on above: Order Comment: Speci men Type: BLOOD SPECIMENOrdering Facility: [facility] Address: [address] [place] [place] [id number] Performed By: #### 2 4323-8 ####[facility] LABIA [id number] [place] [address] [place] Creatinine [Mass/Vol] 1.21 mg/dL Normal 0.73-1.22 [facility] Comment on above: Order Comment: Speci men Type: BLOOD SPECIMENOrdering Facility: [facility] Address: [address] [place] [address] Performed By: #### 2 4323-8 ####[facility] LABIA [id number] [place] [address] [place] eGFRcr SerPlBld CKD-EPI 2020 64 mL/min/1.73m??? Normal >=[address] [facility] Comment on above: Order Comment: Speci men Type: BLOOD SPECIMENOrdering Facility: [facility] Address: [address] [place] [address] Result Comment: Arlyn mated Glomerular Filtration Rate [...] actual GFR. Performed By: #### 2 4323-8 ####[facility] LABIA [id number] [place] [id number] [place] Glucose [Mass/Vol] 141 mg/dL High 74-99 [facility] Comment on above: Order Comment: Speci men Type: BLOOD SPECIMENOrdering Facility: [facility] Address: [address] [place] [address] Result Comment: The [place] Diabetes Association (ADA) provides guidance for cutoff [...] Standards of Medical Care in Diabetes 2016, [place] Diabetes Association. Diabetes Care. 2016.39(Suppl 1). Performed By: #### 2 4323-8 ####[facility] LABCLIA [id number] [address] [address] [place] Potassium [Moles/Vol] 4.9 mmol/L Normal 3.7-5.1 [facility] Comment on above: Order Comment: Speci men Type: BLOOD SPECIMENOrdering Facility: [facility] Address: [address] [place] [address] Performed By: #### 2 4323-8 ####[facility] LABIA [id number] [place] [address] [place] Protein [Mass/Vol] 6.9 g/dL Normal 6.3-8.0 [facility] Comment on above: Order Comment: Speci men Type: BLOOD SPECIMENOrdering Facility: [facility] Address: [address] [place] [address] Performed By: #### 2 4323-8 ####[facility] LABCLIA [id number] [address] [address] [place] Sodium [Moles/Vol] 138 mmol/L Normal 136-144 [facility] Comment on above: Order Comment: Speci men Type: BLOOD SPECIMENOrdering Facility: [facility] Address: [address] [place] [address] Performed By: #### 2 4323-8 ####[facility] LABCLIA [id number] [address] [address] [place] Urea nitrogen [Mass/Vol] 19 mg/dL Normal 9-[address] [facility] Comment on above: Order Comment: Mariana sinclair Type: BLOOD SPECIMENOrdering Facility: [facility] Address: [address] [place] [address] Performed By: #### 2 4323-8 ####[facility] LABIA [id number] [place] [id number] [facility] HbA1c (Bld)on 04-10-2025 Average glucose Estimated from glycated hemoglobin (Bld) [Mass/Vol] 157 mg/dL Normal [facility] Comment on above: Order Comment: Mariana sinclair Type: BLOOD SPECIMENOrdering Facility: [facility] Address: [address] [place] [address] Result Comment: eAG: (Estimated average glucose) is a calculated value from HgbA1c and is chemical sales representative of the average blood glucose level in the last 2-3 month period. Performed By: #### 5 5454-3 ####[facility] [id number] [address] STATES [facility] HbA1c (Bld) [Mass fraction] 7.1 % High 4.3-5.[address] [facility] Comment on above: Order Comment: Mariana sinclair Type: BLOOD SPECIMENOrdering Facility: [facility] Address: [address] [place] [address] Result Comment: Shadia ican Diabetes Association guidelines indicate that patients with HgbA1c in the range 5.7-6.4% are at increased risk for development of diabetes, and intervention by lifestyle modification may be beneficial. HgbA1c greater or equal to 6.5% is considered diagnostic of diabetes. Performed By: #### 5 5454-3 ####[facility] [id number] [place] [id number] [facility] CNOVon 02-15-2025 CNOV Office Visit (SLEWST ) XAVI CABELLO ([id number]) 1955 M Date Time Provider Department 02/15/25 2:30 PM TITO EVANS During your visit today, we recorded the following information about you: Pulse Respiration Blood pressure Weight 78/minute 16/minute 119/80 101.3 kg Tito Evans APRN.CNP 02/15/2025 5:39 PM Signed [facility] Follow up/ Established [...] 31-90 day PAP compliance visit Tito Evans APRN.SUPPORT ANALYST Recording using [employer] software for draft documentation of the visit was discussed with the patient/authorized chemical sales representative; all questions welcomed and answered. Patient/authorized chemical sales representative agreed to proceed Here for follow [...] trouble sleeping. - He uses gummies from [employer] to help fall asleep, initially taking one [...] Index (AHI): 15.1 (3%) in [address] [facility] Treatment : PAP therapy DME: Madiha Current [...] 2 tab (more content not included)... Normal [facility] CNOVon 01-15-2025 CNOV Office Visit (ORTHWS ) XAVI CABELLO ([id number]) 1955 Date Time Provider Department 01/15/25 1:30 [...] these instructions. Informed Consent Consent Obtained: Verbal Hamilton Protocol A moment to CARE was completed. [...] hospitalized patients) applicable. Referring Provider: NILDA KIM [[id number]] Allergies As of Date: 01/15/2025 (No Known Allergies) Date Reviewed: 01/15/2025 Reviewed by: Arabella Cohen MA - Fully Assessed Reason for Visit: Established Patient [175] Follow Up [171] Primary Visit Diagnosis:Primary osteoarthritis of left knee [M17.12] Order(s):Large Joint Arthro/Inj: L knee joint [CIN284] Order #: [id number] [] betamethasone acetate-betamethasone sodium phosphate 6 mg [...] SUMMARY [V999.95] (more content not included)... Normal [facility] Large Joint Arthro/Inj: L nicolle ee jointon [...] these instructions. Informed Consent Consent Obtained: Verbal Hamilton Protocol A moment to CARE was completed. [...] the bedside nurse for hospitalized patients) applicable. [facility] CNOVon 12-04-2024 CNOV Office Visit (SLEWST ) XAVI CABELLO ([id number]) 1955 M Date Time Provider Department 12/04/24 2:30 PM TITO EVANS During your visit today, we recorded the following information about you: Pulse Respiration Blood pressure Weight 74/minute 18/minute 103/72 100.9 kg Tito Evans APRN.CNP 12/04/2024 3:06 PM Signed [facility] New Patient Evaluation PATIENT NAME: Xavi Cabello DATE OF SERVICE: December 03, 2024 CONSULTING PROVIDER: Grant Krause [address] [facility] [address] REASON FOR CONSULT: Grant Krause sends the [...] says he is picking it up from [facility] today. He says he uses his CPAP [...] cmH2O PRIOR SLEEP STUDIES: 08/30/[address] 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 CAD (coronary artery disease), match-[place] coronary artery 03/05/2012 COPD (chronic obstructive pulmonary disease) ([facility]) COVID-19 04/24/2022 Hypertension Hypertrophy of prostate without urinary obstruction and other lower urinary tract symptoms (LUTS) 07/28/2007 Left knee pain Marijuana use Nocturnal hypoxia 10/06/2017 Obesity (BMI 30-39.9) Obstructive sleep apnea 10/06/2017 [facility] Other and unspecified hyperlipidemia Stented coronary artery 03/08/2012 Tubular adenoma of colon 08/03/2012 Type 2 diabetes mellitus with stage 3a chronic kidney disease, without long-term current use of insulin ([facility]) 09/26/2022 Type II or unspecified type diabetes mellitus without mention of complication, not stated as uncontrolled 09/05/2007 Unstable angina ([facility]) 07/28/2013 PAST SURGICAL HISTORY Procedure Laterality Date [...] Disease, Without Long-Term Current Use of Insulin ([facility]) Cad (Coronary Artery Disease), [place] Coronary Artery Stented Coronary Artery Bph With Obstruction/Lower Urinary Tract Symptoms Anastasia (more content not included)... Normal [facility] CNOVon 11-28-2024 CNOV Office Visit (PODIWS ) XAVI CABELLO ([id number]) 1955 M Date Time Provider Department 11/28/24 [...] (or decreased sensation in your feet) a bottom hoop driver should always cut your toenails. Be Careful [...] Go to your health care provider or bottom hoop driver to treat these conditions. Margarito Joseph 11/28/2024 [...] 5 secon (more content not included)... Normal [facility] 11-09-2024 CNPN Telephone (PODIWS) XAVI CABELLO ([id number]) 1955 M Date Time Provider Department 11/09/24 MARGARITO JOSEPH PODIWS During your visit today, we recorded the following information about you: Martha Meza LPN 11/09/2024 10:14 AM Signed Patient calling with influenza-like symptoms. Would like to reschedule his appointment this afternoon to next week if possible? He prefers afternoons. He is reachable at [phone]. YUN Garcia Amelia, LPN 11/09/2024 10:40 AM [...] [F10.10] 03/05/2012 03/16/2012 CAD (coronary artery disease), [place] coronary *03/05/2012 Stented coronary artery [Z95.5] 03/08/2012 [...] Status:Closed by LUPIS RAMIREZ on 11/09/[address] [facility] CNOVon 11-02-2024 CNOV Office Visit (INTMWS ) XAVI CABELLO ([id number]) 1955 M Date Time Provider Department 11/02/24 2:00 PM GRANT KRAUSE INTMWS During your visit today, we recorded the following information about you: Temperature Pulse Respiration Blood pressure Normal [facility] CNPNon 10-24-2024 CNPN Telephone (4CQ) XAVI CABELLO ([id number]) 1955 M Date Time Provider Department 10/24/24 GRANT KRAUSE 4CQ During your visit today, we recorded the following information about you: Olga Oquendo 10/24/2024 4:36 PM Signed Patient is in need of CPAP supplies and possibly a new machine as his was making a noise and after taking it to [facility] Brady advised patient that he may need a new machine. Patient was also told that he would need to transfer his CPAP and supplies over to [facility] due to insurance. Patient did schedule with [...] [F10.10] 03/05/2012 03/16/2012 CAD (coronary artery disease), match-[place] coronary *03/05/2012 Stented coronary artery [Z95.5] 03/08/2012 [...] [Z86.0100] 08/25/2023 (more content not included)... Normal [facility] ALBUMIN/CREATININE RATIO, UR INEon 10-09-2024 Albumin DL <= 20 mg/L (U) [Mass/Vol] mg/dL Normal [facility] Comment on above: Order Comment: Speci men Type: URINE SPECIMENOrdering Facility: [facility] Address: [address] [place] [address] Performed By: #### U ACR ####[facility] LABCLIA [id number] [place] [address] [place] Albumin/Creatinine (U) [Mass ratio] <12 Normal <[address] [facility] Comment on above: Order Comment: Chrisi men Type: URINE SPECIMENOrdering Facility: [facility] Address: [address] [place] [address] Result Comment: Adul t Male and Female Nephrotic Criteria: <30 mg/g is considered normal to mildly increased 30-300 mg/g is considered moderately increased >300 mg/g is considered severely increased KDIGO. (2013). KDIGO 2012 Clinical Practice Guideline for the Evaluation and Management of Chronic Kidney Disease. Official Journal of the International Society of Nephrology, 3(1), 1-150. Performed By: #### U ACR ####[facility] LABCLIA [id number] [place] [address] [place] Creatinine (U) [Mass/Vol] 102.9 mg/dL Normal 20.0-300.[address] [facility] Comment on above: Order Comment: Chrisi men Type: URINE SPECIMENOrdering Facility: [facility] Address: [address] [id number] Performed By: #### U ACR ####[facility] LABCLIA [id number] [facility] [place] [address] [place] Basic metabolic 2000 panelon 10-09-2024 Anion gap [Moles/Vol] 8 mmol/L Normal 8-15 [facility] Comment on above: Order Comment: Speci men Type: BLOOD SPECIMENOrdering Facility: [facility] Address: [address] [place] [address] Performed By: #### 2 4321-2 ####[facility] MILLTOWNCLIA [id number] [place] [address] [place] Calcium [Mass/Vol] 9.8 mg/dL Normal 8.5-10.2 [facility] Comment on above: Order Comment: Speci men Type: BLOOD SPECIMENOrdering Facility: [facility] Address: [address] [place] [address] Performed By: #### 2 4321-2 ####[facility] MILLTOWNCLIA [id number] [place] [address] [place] Chloride [Moles/Vol] 100 mmol/L Normal 98-107 [facility] Comment on above: Order Comment: Speci men Type: BLOOD SPECIMENOrdering Facility: [facility] Address: [address] [place] [address] Performed By: #### 2 4321-2 ####[facility] MILLTOWNCLIA [id number] [place] [address] [place] CO2 [Moles/Vol] 28 mmol/L Normal 22-[address] [facility] Comment on above: Order Comment: Speci men Type: BLOOD SPECIMENOrdering Facility: [facility] Address: [address] [place] [address] Performed By: #### 2 4321-2 ####[facility] MILLTOWNCLIA [id number] [place] [address] [place] Creatinine [Mass/Vol] 1.21 mg/dL Normal 0.73-1.22 [facility] Comment on above: Order Comment: Mariana sinclair Type: BLOOD SPECIMENOrdering Facility: [facility] Address: [address] [place] [address] Performed By: #### 2 4321-2 ####[facility] [id number] [place] [address] [place] Creatinine and Glomerular filtration rate.predicted panel (S/P/Bld) 64 mL/min/1.73m??? Normal >=[address] [facility] Comment on above: Order Comment: Mariana sinlcair Type: BLOOD SPECIMENOrdering Facility: [facility] Address: [address] [place] [address] Result Comment: Arlyn mated Glomerular Filtration Rate [...] actual GFR. Performed By: #### 2 4321-2 ####[facility] [id number] [place] [address] [place] Glucose [Mass/Vol] 120 mg/dL High 74-99 [facility] Comment on above: Order Comment: Mariana sinclair Type: BLOOD SPECIMENOrdering Facility: [facility] Address: [address] [place] [address] Result Comment: The [place] Diabetes Association (ADA) provides guidance for cutoff [...] Standards of Medical Care in Diabetes 2016, [place] Diabetes Association. Diabetes Care. 2016.39(Suppl 1). Performed By: #### 2 4321-2 ####[facility] [id number] [place] [address] [place] Potassium [Moles/Vol] 4.7 mmol/L Normal 3.7-5.1 [facility] Comment on above: Order Comment: Mariana sinclair Type: BLOOD SPECIMENOrdering Facility: [facility] Address: [address] [place] [address] Performed By: #### 2 4321-2 ####[facility] [id number] [place] [address] [place] Sodium [Moles/Vol] 136 mmol/L Normal 136-144 [facility] Comment on above: Order Comment: Mariana sinclair Type: BLOOD SPECIMENOrdering Facility: [facility] Address: [address] [place] [address] Performed By: #### 2 4321-2 ####[facility] [id number] [place] [address] [place] Urea nitrogen [Mass/Vol] 20 mg/dL Normal 9-[address] [facility] Comment on above: Order Comment: Mariana sinclair Type: BLOOD SPECIMENOrdering Facility: [facility] Address: [address] [place] [address] Performed By: #### 2 4321-2 ####[facility] [id number] [place] [address] [place] CNOVon 10-09-2024 CNOV Office Visit (ORTHWS ) DESTINEYXAVI Mamta ([id number]) 1955 M Date Time Provider Department 10/09/24 [...] knee joint Informed Consent Consent Obtained: Verbal Hamilton Protocol A moment to CARE was completed. [...] completed when applicable Referring Provider: NILDA KIM [[id number]] Allergies As of Date: 10/09/2024 (No Known Allergies) Date Reviewed: 10/09/2024 Reviewed by: Lupis Ramirez LPN - Fully Assessed Reason for Visit: Established Patient [175] Follow Up [171] Injections [199] Primary Visit Diagnosis:Primary osteoarthritis of left knee [M17.12] Order(s):Large Joint Arthro/Inj: L knee joint [YHW504] Order #: [id number] [] betamethasone acetate-betamethasone sodium phosphate 6 mg [...] [F10.10] 03/05/2012 03/16/2012 CAD (coronary artery disease), match-[place]-be[place] band coronary *03/05/2012 Stented coronary artery [Z95.5] 03/08/2012 Unstable angina [I20.0] 07/28/2013 09/06/2013 Benign pro (more content not included)... Normal [facility] Office Visit (INTMWS ) XAVI CABELLO ([id number]) 1955 M Date Time Provider Department 10/09/24 [...] of Insulin (Hcc) Cad (Coronary Artery Disease), [place] Coronary Artery Stented Coronary Artery Benign Prostatic [...] undetermined, du (more content not included)... Normal [facility] HbA1c (Bld)on 10-09-2024 Average glucose Estimated from glycated hemoglobin (Bld) [Mass/Vol] 131 mg/dL Normal [facility] Comment on above: Order Comment: Mariana sinclair Type: BLOOD SPECIMENOrdering Facility: [facility] Address: [address] [place] [address] Result Comment: eAG: (Estimated average glucose) is a calculated value from HgbA1c and is chemical sales representative of the average blood glucose level in the last 2-3 month period. Performed By: #### 5 5454-3 ####[facility] LABCLIA [id number] [place] [address] [place] [facility] HbA1c (Bld) [Mass fraction] 6.2 % High 4.3-5.[address] [facility] Comment on above: Order Comment: Mariana sinclair Type: BLOOD SPECIMENOrdering Facility: [facility] Address: [address] [place] [address] Result Comment: Amer [place] Diabetes Association guidelines indicate that patients with HgbA1c in the range 5.7-6.4% are at increased risk for development of diabetes, and intervention by lifestyle modification may be beneficial. HgbA1c greater or equal to 6.5% is considered diagnostic of diabetes. Performed By: #### 5 5454-3 ####[facility] LABCLIA [id number] [address] [place] Large Joint Arthro/Inj: L kn ee jointon 10-09-2024 Nilda Kim PA -C 10/09/2024 3:36 PM Large Joint Arthro/Inj: L knee joint Informed Consent Consent Obtained: Verbal Hamilton Protocol A moment to CARE was completed. [...] Plan of Care Visit completed when applicable [facility] Lipid 1996 panelon 5 Cholesterol [Mass/Vol] 154 mg/dL Normal <[address] [facility] Comment on above: Order Comment: Mariana sinclair Type: BLOOD SPECIMENOrdering Facility: [facility] Address: [address] [place] [address] Result Comment: <200 mg/dL, Desirable 200-239 mg/dL, Borderline high >239 mg/dL, High Performed By: #### 2 4331-1 ####[facility] LABCLIA [id number] [address] [id number] [place] [address] [place] Cholesterol in HDL [Mass/Vol] 52 mg/dL Normal >[address] [facility] Comment on above: Order Comment: Mariana sinclair Type: BLOOD SPECIMENOrdering Facility: [facility] Address: [address] [place] [address] Result Comment: 40-5 9 mg/dL, Acceptable >59 mg/dL, High: Negative risk factor for coronary heart disease <40 mg/dL, Low: Positive risk factor for coronary heart disease Performed By: #### 2 4331-1 ####[facility] LABCLIA [id number] [address] [id number] [place] [address] [place] Cholesterol in LDL [Mass/Vol] 79 mg/dL Normal <[address] [facility] Comment on above: Order Comment: Speci men Type: BLOOD SPECIMENOrdering Facility: [facility] Address: [address] [place] [address] Result Comment: <100 mg/dL, Optimal 100-129 mg/dL, Near optimal/above optimal 130-159 mg/dL, Borderline high 160-189 mg/dL, High >189 mg/dL, Very high Secondary prevention optimal LDL Cholesterol levels are recommended to be < 70 mg/dL Performed By: #### 2 4331-1 ####[facility] LABIA [id number] [address] [id number] [place] [address] [place] Cholesterol in LDL/Cholesterol in HDL [Mass ratio] 1.52 {ratio} Normal <2.[address] [facility] Comment on above: Order Comment: Mariana men Type: BLOOD SPECIMENOrdering Facility: [facility] Address: [address] [place] [address] Result Comment: Refe rence: 1. National Cholesterol Education Program ATP III Guideline At-A-Glance Quick Desk Reference: National Heart, Lung, and Blood [place]. National Institutes of Health. 2001: NIH Publication No. 01-3305. 2. An International Atherosclerosis Society position paper: global recommendations for the management of dyslipidemia: executive summary, Atherosclerosis. 2014: 232(2):410-413. Performed By: #### 2 4331-1 ####[facility] LABCLIA [id number] [address] [id number] [place] [address] [place] Cholesterol in VLDL [Mass/Vol] 23 mg/dL Normal <[address] [facility] Comment on above: Order Comment: Chrisi men Type: BLOOD SPECIMENOrdering Facility: [facility] Address: [address] [place] [address] Performed By: #### 2 4331-1 ####[facility] LABCLIA [id number] [place] [id number] [facility] [id number] [place] [address] [place] Cholesterol non HDL [Mass/Vol] 102 mg/dL Normal <[address] [facility] Comment on above: Order Comment: Speci men Type: BLOOD SPECIMENOrdering Facility: [facility] Address: [address] [place] [address] Result Comment: <130 mg/dL, Optimal 130-159 mg/dL, Near optimal/above optimal 160-189 mg/dL, Borderline high 190-219 mg/dL, High >219 mg/dL, Very high Secondary prevention optimal non HDL Cholesterol levels are recommended to be <100 mg/dL Performed By: #### 2 4331-1 ####[facility] LABCLIA [id number] [address] [id number] [place] [address] [place] Cholesterol.total/Cho lesterol in HDL [Mass ratio] 2.96 {ratio} Normal <5.[address] [facility] Comment on above: Order Comment: Speci men Type: BLOOD SPECIMENOrdering Facility: [facility] Address: [address] [place] [address] Performed By: #### 2 4331-1 ####[facility] LABCLIA [id number] [address] [id number] [place] [address] [place] FASTING TIME 13 hrs Normal [facility] Comment on above: Order Comment: Speci men Type: BLOOD SPECIMENOrdering Facility: [facility] Address: [address] [place] [address] Performed By: #### 2 4331-1 ####[facility] LABCLIA [id number] [place] [id number] [facility] [id number] [place] [address] [place] Triglyceride [Mass/Vol] 116 mg/dL Normal <[address] [facility] Comment on above: Order Comment: Speci men Type: BLOOD SPECIMENOrdering Facility: [facility] Address: [address] [place] [address] Result Comment: <150 mg/dL, Normal 150-199 mg/dL, Borderline high 200-499 mg/dL, High >499 mg/dL, Very high Performed By: #### 2 4331-1 ####[facility] LABCLIA [id number] [address] [id number] [address] [place] CNOVon 10-06-2024 CNOV Office Visit (PODIWS ) XAVI CABELLO ([id number]) 1955 M Date Time Provider Department 10/06/24 [...] Objective: Patient presents to clinic ambulating in [facility] Vasc: DP and PT pulses are palpable [...] (or decreased sensation in your feet) a bottom hoop driver should always cut your toenails. Be Careful [...] health care (more content not included)... Normal [facility] L5000.0010on 07-18-2024 Natriuretic peptide B (Bld) [Mass/Vol] 77.5 pg/mL Normal 0.0-100.0 [facility] Comment on above: Order Comment: Speci men Comment: A duplicate report has been generated due to demographic Specimen Comment: updates. Result Comment: Siem ens ADVIA Centaur XP methodology Performed at: [address] [id number] Groundman/Lineman: Patrick Rosales PhD, Phone: [phone] Performed By: #### L 500.2500, L501.5200, L100.0100, L501.5425, L5000.0010 #### [facility] [address] [place], [address] Basic Metabolic Profile (BMP )on 07-11-2024 BUN/CRE 21.1 RATIO High 10-20 [facility] Comment on above: Performed By: #### L 100.0100, L500.2500 ####[facility] [address] [place], [address] CA,Total 9.2 mg/dL Normal 8.5-10.1 [facility] Comment on above: Performed By: #### L 100.0100, L500.2500 ####[facility] [address] [place], [address] Chloride [Moles/Vol] 108 mmol/L High 98-107 [facility] Comment on above: Performed By: #### L 100.0100, L500.2500 ####[facility] [address] [place], [address] CO2 [Moles/Vol] 27.0 mmol/L Normal 21.0-32.0 [facility] Comment on above: Performed By: #### L 100.0100, L500.2500 ####[facility] [address] [place], [address] Creatinine [Mass/Vol] 1.09 mg/dL Normal 0.70-1.30 [facility] Comment on above: Result Comment: The validity of the calculated GFR GFRAA in patients over 70 years has not been determined. Clinical correlation is essential. Performed By: #### L 100.0100, L500.2500 ####[facility] [address] [place], [address] ECRCL 70.85 ml/min Normal [facility] Comment on above: Performed By: #### L 100.0100, L500.2500 ####[facility] [address] [place], [address] EST GFR - AA 86 mL/min Normal >60 [facility] Comment on above: Result Comment: Afri can Turkish GFR Calc Performed By: #### L 100.0100, L500.2500 ####[facility] [address] [place], [address] GAP 4 Low 5-15 [facility] Comment on above: Performed By: #### L 100.0100, L500.2500 ####[facility] [address] [place], [address] GFR/1.73 sq M.predicted among non-blacks MDRD (S/P/Bld) [Vol rate/Area] 71 mL/min/{1.73_m2} Normal >60 [facility] Comment on above: Result Comment: Non- GFR Calc Performed By: #### L 100.0100, L500.2500 ####[facility] [address] [place], [address] Glucose [Mass/Vol] 123 mg/dL High 74-106 [facility] Comment on above: Result Comment: Fast ing Glucose result from 100 to 125 mg/dL suggests IMPAIRED HOMEOSTASIS per A.D.A. criteria. Performed By: #### L 100.0100, L500.2500 ####[facility] [address] [place], [address] Potassium [Moles/Vol] 4.2 mmol/L Normal 3.5-5.1 [facility] Comment on above: Performed By: #### L 100.0100, L500.2500 ####[facility] [address] [place], [address] Sodium [Moles/Vol] 140 mmol/L Normal 136-145 [facility] Comment on above: Performed By: #### L 100.0100, L500.2500 ####[facility] [address] [place], [address] Urea nitrogen [Mass/Vol] 23 mg/dL High 7-18 [facility] Comment on above: Performed By: #### L 100.0100, L500.2500 ####[facility] [address] [place], [address] BUN/CRE 17.9 RATIO Normal 10-20 [facility] Comment on above: Order Comment: 1 Y Performed By: #### L 500.2500, L501.5200, L100.0100, L501.5425, L5000.0010 #### [facility] [address] [place], [address] CA,Total 9.0 mg/dL Normal 8.5-10.1 [facility] Comment on above: Order Comment: 1 Y Performed By: #### L 500.2500, L501.5200, L100.0100, L501.5425, L5000.0010 #### [facility] [address] [place], [address] Chloride [Moles/Vol] 107 mmol/L Normal 98-107 [facility] Comment on above: Order Comment: 1 Y Performed By: #### L 500.2500, L501.5200, L100.0100, L501.5425, L5000.0010 #### [facility] [address] [place], [address] CO2 [Moles/Vol] 27.0 mmol/L Normal 21.0-32.0 [facility] Comment on above: Order Comment: 1 Y Performed By: #### L 500.2500, L501.5200, L100.0100, L501.5425, L5000.0010 #### [facility] [address] [place], [address] Creatinine [Mass/Vol] 1.23 mg/dL Normal 0.70-1.30 [facility] Comment on above: Order Comment: 1 Y Result Comment: The validity of the calculated GFR GFRAA in patients over 70 years has not been determined. Clinical correlation is essential. Performed By: #### L 500.2500, L501.5200, L100.0100, L501.5425, L5000.0010 #### [facility] [address] [place], [address] ECRCL 63.59 ml/min Normal [facility] Comment on above: Order Comment: 1 Y Performed By: #### L 500.2500, L501.5200, L100.0100, L501.5425, L5000.0010 #### [facility] [address] [place], [address] EST GFR - AA 75 mL/min Normal >60 [facility] Comment on above: Order Comment: 1 Y Result Comment: Afri can Turkish GFR Calc Performed By: #### L 500.2500, L501.5200, L100.0100, L501.5425, L5000.0010 #### [facility] [address] [place], [address] GAP 6 Normal 5-15 [facility] Comment on above: Order Comment: 1 Y Performed By: #### L 500.2500, L501.5200, L100.0100, L501.5425, L5000.0010 #### [facility] [address] [place], [address] GFR/1.73 sq M.predicted among non-blacks MDRD (S/P/Bld) [Vol rate/Area] 62 mL/min/{1.73_m2} Normal >60 [facility] Comment on above: Order Comment: 1 Y Result Comment: Non- GFR Calc Performed By: #### L 500.2500, L501.5200, L100.0100, L501.5425, L5000.0010 #### [facility] [address] [place], [address] Glucose [Mass/Vol] 166 mg/dL High 74-106 [facility] Comment on above: Order Comment: 1 Y Result Comment: Fast ing Glucose result greater than or equal to 126 mg/dL suggests DIABETES MELLITUS per A.D.A. criteria. Performed By: #### L 500.2500, L501.5200, L100.0100, L501.5425, L5000.0010 #### [facility] [address] [place], [address] Potassium [Moles/Vol] 4.1 mmol/L Normal 3.5-5.1 [facility] Comment on above: Order Comment: 1 Y Performed By: #### L 500.2500, L501.5200, L100.0100, L501.5425, L5000.0010 #### [facility] [address] [place], [address] Sodium [Moles/Vol] 140 mmol/L Normal 136-145 [facility] Comment on above: Order Comment: 1 Y Performed By: #### L 500.2500, L501.5200, L100.0100, L501.5425, L5000.0010 #### [facility] [address] [place], [address] Urea nitrogen [Mass/Vol] 22 mg/dL High 7-18 [facility] Comment on above: Order Comment: 1 Y Performed By: #### L 500.2500, L501.5200, L100.0100, L501.5425, L5000.0010 #### [facility] [address] [place], [address] Bedside Glucoseon 07-11-2024 FINGERSTICK GLU 169 mg/dL High 74-106 [facility] Comment on above: Result Comment: SHAHRAM WILKERSON OF PATIENT CARE PER NURSING PROTOCOL Performed By: #### L 501.080 ####[facility] [address] [place], [address] CBC W/Diff, Automatedon 06-27 Absolute Lymph 2.14 X10 3/uL Normal 0.83-4.51 [facility] Comment on above: Performed By: #### L 100.0100, L500.2500 #### [facility] [address] [place], [address] Absolute Neut 4.1 X10 3/uL Normal 2.0-7.7 [facility] Comment on above: Performed By: #### L 100.0100, L500.2500 #### [facility] [address] [place], [address] Basophils/100 WBC (Bld) 0.7 % Normal 0-1 [facility] Comment on above: Performed By: #### L 100.0100, L500.2500 #### [facility] [address] [place], [address] Eosinophils/100 WBC (Bld) 3.8 % Normal 0-5 [facility] Comment on above: Performed By: #### L 100.0100, L500.2500 #### [facility] [address] [place], [address] Erythrocyte distribution width (RBC) [Ratio] 13.4 % Normal 11.6-14.6 [facility] Comment on above: Performed By: #### L 100.0100, L500.2500 #### [facility] [address] [place], [address] Hematocrit (Bld) [Volume fraction] 42.1 % Normal 40-54 [facility] Comment on above: Performed By: #### L 100.0100, L500.2500 #### [facility] [address] [place], [address] Hemoglobin (Bld) [Mass/Vol] 13.7 g/dL Normal 13.0-16.5 [facility] Comment on above: Performed By: #### L 100.0100, L500.2500 #### [facility] [address] [place], [address] IG% 0.500 Normal 0.0-0.9 [facility] Comment on above: Result Comment: IG% - Immature Granulocytes (promyelocytes, myelocytes and metamyelocytes) > 1% indicates that a LEFT SHIFT is Present. Performed By: #### L 100.0100, L500.2500 #### [facility] [address] [place], [address] Lymphocytes/100 WBC (Bld) 29.0 % Normal 19-41 [facility] Comment on above: Performed By: #### L 100.0100, L500.2500 #### [facility] [address] [place], [address] MCH (RBC) [Entitic mass] 32.1 pg High 27.0-32.0 [facility] Comment on above: Performed By: #### L 100.0100, L500.2500 #### [facility] [address] [place], [address] MCHC (RBC) [Mass/Vol] 32.5 g/dL Normal 32-36 [facility] Comment on above: Performed By: #### L 100.0100, L500.2500 #### [facility] [address] [place], [address] MCV (RBC) [Entitic vol] 98.6 fL High 80-94 [facility] Comment on above: Performed By: #### L 100.0100, L500.2500 #### [facility] [address] [place], [address] Monocytes/100 WBC (Bld) 10.0 % Normal 0-10 [facility] Comment on above: Performed By: #### L 100.0100, L500.2500 #### [facility] [address] [place], [address] Neutrophils/100 WBC (Bld) 56.0 % Normal 47-70 [facility] Comment on above: Performed By: #### L 100.0100, L500.2500 #### [facility] [address] [place], [address] Nucleated RBC (Bld) [#/Vol] 0 10*3/uL Normal 0-5 [facility] Comment on above: Performed By: #### L 100.0100, L500.2500 #### [facility] [address] [place], [address] Platelet mean volume (Bld) [Entitic vol] 10.4 fL Normal 6.2-12.0 [facility] Comment on above: Performed By: #### L 100.0100, L500.2500 #### [facility] [address] [place], [address] Platelets (Bld) [#/Vol] 279 10*3/uL Normal 150-450 [facility] Comment on above: Performed By: #### L 100.0100, L500.2500 #### [facility] [address] [place], [address] RBC (Bld) [#/Vol] 4.27 10*6/uL Low 4.6-6.2 [facility] Comment on above: Performed By: #### L 100.0100, L500.2500 #### [facility] [address] [place], [address] RDW SD 47.9 fl High 35.1-43.9 [facility] Comment on above: Performed By: #### L 100.0100, L500.2500 #### [facility] [address] [place], [address] WBC (Bld) [#/Vol] 7.4 10*3/uL Normal 4.4-11.0 [facility] Comment on above: Performed By: #### L 100.0100, L500.2500 #### [facility] [address] [facility] [place], [address] Absolute Lymph 1.75 X10 3/uL Normal 0.83-4.51 [facility] Comment on above: Performed By: #### L 500.2500, L501.5200, L100.0100, L501.5425, L5000.0010 #### [facility] [address] [place], [address] Absolute Neut 5.0 X10 3/uL Normal 2.0-7.7 [facility] Comment on above: Performed By: #### L 500.2500, L501.5200, L100.0100, L501.5425, L5000.0010 #### [facility] [address] [place], [address] Basophils/100 WBC (Bld) 0.5 % Normal 0-1 [facility] Comment on above: Performed By: #### L 500.2500, L501.5200, L100.0100, L501.5425, L5000.0010 #### [facility] [address] [place], [address] Eosinophils/100 WBC (Bld) 2.9 % Normal 0-5 [facility] Comment on above: Performed By: #### L 500.2500, L501.5200, L100.0100, L501.5425, L5000.0010 #### [facility] [address] [place], [address] Erythrocyte distribution width (RBC) [Ratio] 13.3 % Normal 11.6-14.6 [facility] Comment on above: Performed By: #### L 500.2500, L501.5200, L100.0100, L501.5425, L5000.0010 #### [facility] [address] [place], [address] Hematocrit (Bld) [Volume fraction] 44.0 % Normal 40-54 [facility] Comment on above: Performed By: #### L 500.2500, L501.5200, L100.0100, L501.5425, L5000.0010 #### [facility] [address] [place], [address] Hemoglobin (Bld) [Mass/Vol] 14.2 g/dL Normal 13.0-16.5 [facility] Comment on above: Performed By: #### L 500.2500, L501.5200, L100.0100, L501.5425, L5000.0010 #### [facility] [address] [facility] [place], [address] IG% 0.500 Normal 0.0-0.9 [facility] Comment on above: Result Comment: IG% - Immature Granulocytes (promyelocytes, myelocytes and metamyelocytes) > 1% indicates that a LEFT SHIFT is Present. Performed By: #### L 500.2500, L501.5200, L100.0100, L501.5425, L5000.0010 #### [facility] [address] [facility] [place], [address] Lymphocytes/100 WBC (Bld) 22.3 % Normal 19-41 [facility] Comment on above: Performed By: #### L 500.2500, L501.5200, L100.0100, L501.5425, L5000.0010 #### [facility] [address] [place], [address] MCH (RBC) [Entitic mass] 31.8 pg Normal 27.0-32.0 [facility] Comment on above: Performed By: #### L 500.2500, L501.5200, L100.0100, L501.5425, L5000.0010 #### [facility] [address] [place], [address] MCHC (RBC) [Mass/Vol] 32.3 g/dL Normal 32-36 [facility] Comment on above: Performed By: #### L 500.2500, L501.5200, L100.0100, L501.5425, L5000.0010 #### [facility] [address] [place], [address] MCV (RBC) [Entitic vol] 98.4 fL High 80-94 [facility] Comment on above: Performed By: #### L 500.2500, L501.5200, L100.0100, L501.5425, L5000.0010 #### [facility] [address] [place], [address] Monocytes/100 WBC (Bld) 9.6 % Normal 0-10 [facility] Comment on above: Performed By: #### L 500.2500, L501.5200, L100.0100, L501.5425, L5000.0010 #### [facility] [address] [place], [address] Neutrophils/100 WBC (Bld) 64.2 % Normal 47-70 [facility] Comment on above: Performed By: #### L 500.2500, L501.5200, L100.0100, L501.5425, L5000.0010 #### [facility] [address] [place], [address] Nucleated RBC (Bld) [#/Vol] 0 10*3/uL Normal 0-5 [facility] Comment on above: Performed By: #### L 500.2500, L501.5200, L100.0100, L501.5425, L5000.0010 #### [facility] [address] [place], [address] Platelet mean volume (Bld) [Entitic vol] 10.3 fL Normal 6.2-12.0 [facility] Comment on above: Performed By: #### L 500.2500, L501.5200, L100.0100, L501.5425, L5000.0010 #### [facility] [address] [place], [address] Platelets (Bld) [#/Vol] 292 10*3/uL Normal 150-450 [facility] Comment on above: Performed By: #### L 500.2500, L501.5200, L100.0100, L501.5425, L5000.0010 #### [facility] [address] [place], [address] RBC (Bld) [#/Vol] 4.47 10*6/uL Low 4.6-6.2 [facility] Comment on above: Performed By: #### L 500.2500, L501.5200, L100.0100, L501.5425, L5000.0010 #### [facility] [address] [place], [address] RDW SD 48.2 fl High 35.1-43.9 [facility] Comment on above: Performed By: #### L 500.2500, L501.5200, L100.0100, L501.5425, L5000.0010 #### [facility] [address] [place], [address] WBC (Bld) [#/Vol] 7.8 10*3/uL Normal 4.4-11.0 [facility] Comment on above: Performed By: #### L 500.2500, L501.5200, L100.0100, L501.5425, L5000.0010 #### [facility] [address] [place], [address] Chest 1 View (Portable)on Chest 1 View (Portable) [facility] Imaging Services [address] [place] [address] Chest 1 View (Portable) MR#: [id number] Acct: [id number] Name: XAVI CABELLO Rep #: [id number] : 1955 M 69 From: Rudolph Ambrosio MD PCP: Dr. Grant Krause MD Status: REG ER Study: Chest 1 View (Portable) Date of Exam: 07/11/24 Exam# [id number] Ordering Dr: [place] [id number] EXAM: XR Chest 1 View INDICATION: Male, [...] Jere Fabian DO; Dr. 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 Grant Krause MD Signed Normal [facility] Emergency Department Summary on 07-11-2024 Emergency Department Summary [facility] Medical Records Department [address] [place] [address] Emergency Department Summary 07/11/24 MR#: [id number] Acct: [id number] Name: XAVI CABELLO Rep #: [id number] : 1955 69 From: Jere Fabian DO [...] that this feels similar to his previous [place]. 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 Normal [facility] L501.4020on 07-11-2024 TROPONIN-I HS 8 pg/mL Normal 3.0-78.0 [facility] Comment on above: Order Comment: 'TROP ' Serial specimen #1, #2 or #3: 3 Result Comment: Arabella banks Note: New Test Units and Gender Specific Reference Ranges. For more information see Policy Stat Procedure Mamou High Sensitivity Troponin (TNIH) and attachments. Performed By: #### L 501.4020 #### [facility] [address] [place], [address] TROPONIN-I HS 5 pg/mL Normal 3.0-78.0 [facility] Comment on above: Result Comment: Plea se Note: New Test Units and Gender Specific Reference Ranges. For more information see Policy Stat Procedure Mamou High Sensitivity Troponin (TNIH) and attachments. Performed By: #### L 501.4020 #### [facility] [address] [place], [address] L501.5425on 07-11-2024 TROPONIN-I HS 4 pg/mL Normal 3.0-78.0 [facility] Comment on above: Order Comment: 1 Y Result Comment: Plea se Note: New Test Units and Gender Specific Reference Ranges. For more information see Policy Stat Procedure Mamou High Sensitivity Troponin (TNIH) and attachments. Performed By: #### L 500.2500, L501.5200, L100.0100, L501.5425, L5000.0010 #### [facility] [address] [place], [address] Magnesiumon 07-11-2024 Magnesium [Mass/Vol] 1.9 mg/dL Normal 1.6-2.6 [facility] Comment on above: Order Comment: 1 Y Performed By: #### L 500.2500, L501.5200, L100.0100, L501.5425, L5000.0010 #### [facility] [address] [place], [address] Stress Reporton 07-11-2024 Stress Report [facility] Cardiovascular Services [address] [place] [address] MR#: [id number] Acct: [id number] Name: XAVI CABELLO Rep #: [id number] : 1955 69 From: Mo Hatfield MD [...] MD Date Dictated: 07/11/241130 Date Transcribed: 07/11/241130 Social And Political Studies Professor: [place] Signed Normal [facility] Cardiology Visit Reporton Cardiology Visit Report [facility] [address] [place] [address]. [address] [place] [address] OFFICE VISIT Date of Service: 06/06/24 MR#: [id number] Acct: [id number] Name: XAVI CABELLO Rep #: [id number] : 1955 Provider: Dr. Calderon Cordova MD Age/Sex: 69/M Location: [facility] Status: Signed [facility] History of Present Illness Details: Denies any [...] NIBP Intake Visit Reasons: 6 M [employer] Manager Required: No Accompanied by: Self Is patient [...] PFSH Medical History 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 Chest pain [...] Supplemental Informat (more content not included)... Normal [facility] Comprehensive Metabolic Prof ilon 06-06-2024 Albumin [Mass/Vol] 3.5 g/dL Normal 3.2-5.0 [facility] Comment on above: Performed By: #### L 500.4100, L500.4050 ####[facility] [address] [place], [address] Albumin/Globulin [Mass ratio] 1.0 {ratio} Normal 0.9-2.4 [facility] Comment on above: Performed By: #### L 500.4100, L500.4050 ####[facility] [address] [place], [address] ALK P 35 U/L Low 45-117 [facility] Comment on above: Performed By: #### L 500.4100, L500.4050 ####[facility] [address] [place], [address] ALT [Catalytic activity/Vol] 23 U/L Normal 16-61 [facility] Comment on above: Performed By: #### L 500.4100, L500.4050 ####[facility] [address] [place], [address] AST [Catalytic activity/Vol] 19 U/L Normal 15-37 [facility] Comment on above: Performed By: #### L 500.4100, L500.4050 ####[facility] [address] [place], [address] Bilirubin [Mass/Vol] 0.40 mg/dL Normal 0.20-1.00 [facility] Comment on above: Result Comment: For patients on eltrombopag therapy, use of Dimension Mamou TBIL is not recommended. Performed By: #### L 500.4100, L500.4050 ####[facility] [address] [place], [address] BUN/CRE 19.0 RATIO Normal 10-20 [facility] Comment on above: Performed By: #### L 500.4100, L500.4050 ####[facility] [address] [place], [address] CA,Total 9.5 mg/dL Normal 8.5-10.1 [facility] Comment on above: Performed By: #### L 500.4100, L500.4050 ####[facility] [address] [place], [address] Chloride [Moles/Vol] 105 mmol/L Normal 98-107 [facility] Comment on above: Performed By: #### L 500.4100, L500.4050 ####[facility] [address] [place], [address] CO2 [Moles/Vol] 26.0 mmol/L Normal 21.0-32.0 [facility] Comment on above: Performed By: #### L 500.4100, L500.4050 ####[facility] [address] [place], [address] Creatinine [Mass/Vol] 1.53 mg/dL High 0.70-1.30 [facility] Comment on above: Result Comment: The validity of the calculated GFR GFRAA in patients over 70 years has not been determined. Clinical correlation is essential. Performed By: #### L 500.4100, L500.4050 ####[facility] [address] [place], [address] EST GFR - AA 58 mL/min Low >60 [facility] Comment on above: Result Comment: Afri can Turkish GFR Calc Performed By: #### L 500.4100, L500.4050 ####[facility] [address] [place], [address] GAP 7 Normal 5-15 [facility] Comment on above: Performed By: #### L 500.4100, L500.4050 ####[facility] [address] [place], [address] GFR/1.73 sq M.predicted among non-blacks MDRD (S/P/Bld) [Vol rate/Area] 48 mL/min/{1.73_m2} Low >60 [facility] Comment on above: Result Comment: Non- GFR Calc Performed By: #### L 500.4100, L500.4050 ####[facility] [address] [place], [address] Globulin (S) [Mass/Vol] 3.5 g/dL Normal 2.2-4.2 [facility] Comment on above: Performed By: #### L 500.4100, L500.4050 ####[facility] [address] [place], [address] Glucose [Mass/Vol] 196 mg/dL High 74-106 [facility] Comment on above: Result Comment: Fast ing Glucose result greater than or equal to 126 mg/dL suggests DIABETES MELLITUS per A.D.A. criteria. Performed By: #### L 500.4100, L500.4050 ####[facility] [address] [place], [address] Potassium [Moles/Vol] 4.5 mmol/L Normal 3.5-5.1 [facility] Comment on above: Performed By: #### L 500.4100, L500.4050 ####[facility] [address] [place], [address] Sodium [Moles/Vol] 138 mmol/L Normal 136-145 [facility] Comment on above: Performed By: #### L 500.4100, L500.4050 ####[facility] [address] [place], [address] T PROT 7.0 g/dL Normal 6.4-8.2 [facility] Comment on above: Performed By: #### L 500.4100, L500.4050 ####[facility] [address] [place], [address] Urea nitrogen [Mass/Vol] 29 mg/dL High 7-18 [facility] Comment on above: Performed By: #### L 500.4100, L500.4050 ####[facility] [address] [place], [address] Lipid Profileon 06-06-2024 Cholesterol [Mass/Vol] 150 mg/dL Normal 200 [facility] Comment on above: Result Comment: <200 mg/dL Desirable 200-240 mg/dL Borderline >240 mg/dL High Risk Performed By: #### L 500.4100, L500.4050 ####[facility] [address] [place], [address] Cholesterol in HDL [Mass/Vol] 59 mg/dL Normal [facility] Comment on above: Result Comment: The drugs N-Acetylcysteine and Metamizole may falsely depress this assay. Reference Range HDL <40 mg/dL Low HDL Cholesterol HDL >or= 60 mg/dL High HDL Cholesterol Performed By: #### L 500.4100, L500.4050 ####[facility] [address] [place], [address] Cholesterol in LDL [Mass/Vol] 72 mg/dL Normal 0-130 [facility] Comment on above: Performed By: #### L 500.4100, L500.4050 ####[facility] [address] [place], [address] Cholesterol in VLDL [Mass/Vol] 19 mg/dL Normal 5-40 [facility] Comment on above: Performed By: #### L 500.4100, L500.4050 ####[facility] [address] [place], [address] Triglyceride [Mass/Vol] 95 mg/dL Normal [facility] Comment on above: Result Comment: The drugs N-Acetylcysteine and Metamizole may falsely depress this assay. Serum Triglycerides Reference Interval Normal <150 mg/dL Borderline high 150 - 199 mg/dL High 200 - 499 mg/dL Very High > or = 500 mg/dL Performed By: #### L 500.4100, L500.4050 ####[facility] [address] [place], [address] Large Joint Arthro/Inj: L kn ee jointon 06-05-2024 Nilda Kim PA -C 06/05/2024 2:34 PM Large Joint Arthro/Inj: L knee joint Informed Consent Consent Obtained: Verbal Hamilton Protocol A moment to CARE was completed. [...] Plan of Care Visit completed when applicable [facility] Large Joint Arthro/Inj: L kn ee jointon 02-14-2024 Nilda Kim PA -C 02/14/2024 1:53 PM Large Joint Arthro/Inj: L knee joint Informed Consent Consent Obtained: Verbal [place] Protocol A moment to CARE was completed. [...] equipment, possible retained foreign bodies accounted for. [facility] Basophil percentageOrdered B y: Calderon Cordova on 12-14-2023 Chloride [Moles/Vol] 104 mmol/L 98-107 [facility] Glucose [Mass/Vol] 146 mg/dL 74-106 [facility] Comment on above: Fasting Glucose resu lt greater than or equal to 126 mg/dL suggests DIABETES MELLITUS per A.D.A. criteria. Potassium [Moles/Vol] 4.5 mmol/L 3.5-5.1 [facility] Sodium [Moles/Vol] 138 mmol/L 136-145 [facility] Laboratory - Chemistry and C hemistry - challengeOrdered By: Calderon Cordova on 12-14-2023 CO2 [Moles/Vol] 27.0 mmol/L 21.0-32.0 [facility] Urea nitrogen/Creatinine [Mass ratio] 20.5 mg/mg 10-20 [facility] No Panel InformationOrdered By: Calderon Cordova on 12-14-2023 Estimated GFR (MDRD) Amer 51 mL/min >60 [facility] Comment on above: GFR Calc Estimated GFR (MDRD) Non-Af Amer 42 mL/min >60 [facility] Comment on above: Non- GFR Calc Serum or plasma calcium rony urement (mass/volume)Ordered By: Calderon Cordova on 12-14-2023 Calcium [Mass/Vol] 9.6 mg/dL 8.5-10.1 [facility] Serum or plasma creatinine m easurement (mass/volume)Ordered By: Calderon Cordova on 12-14-2023 Creatinine [Mass/Vol] 1.71 mg/dL 0.70-1.30 [facility] Comment on above: The validity of the calculated GFR & GFRAA in patients over 70 years has not been determined. Clinical correlation is essential. Serum or plasma urea nitroge n measurement (mass/volume)Ordered By: Calderon Cordova on 12-14-2023 Urea nitrogen [Mass/Vol] 35 mg/dL 7-18 [facility] Thin prep Papanicolaou smear with manual screeningOrdered By: Calderon Cordova on 12-14-2023 Thin prep Papanicolaou smear with manual screening 7 5-15 [facility] Basophil percentageOrdered B y: Calderon Cordova on 12-06-2023 Bilirubin [Mass/Vol] 0.50 mg/dL 0.20-1.00 [facility] Comment on above: For patients on eltr ombopag therapy, use of Dimension Mamou TBIL is not recommended. Chloride [Moles/Vol] 109 mmol/L 98-107 [facility] Glucose [Mass/Vol] 122 mg/dL 74-106 [facility] Comment on above: Fasting Glucose resu lt from 100 to 125 mg/dL suggests IMPAIRED HOMEOSTASIS per A.D.A. criteria. Potassium [Moles/Vol] 4.3 mmol/L 3.5-5.1 [facility] Protein [Mass/Vol] 6.9 g/dL 6.4-8.2 [facility] Sodium [Moles/Vol] 140 mmol/L 136-145 [facility] Laboratory - Chemistry and C hemistry - challengeOrdered By: Calderon Cordova on 12-06-2023 Albumin/Globulin [Mass ratio] 1.0 {ratio} 0.9-2.4 [facility] ALP [Catalytic activity/Vol] 35 U/L 45-117 [facility] ALT [Catalytic activity/Vol] 18 U/L 16-61 [facility] CO2 [Moles/Vol] 29.0 mmol/L 21.0-32.0 [facility] Globulin (S) [Mass/Vol] 3.4 g/dL 2.2-4.2 [facility] Urea nitrogen/Creatinine [Mass ratio] 21.3 mg/mg 10-20 [facility] No Panel InformationOrdered By: Calderon Cordova on 12-06-2023 Estimated GFR (MDRD) Amer 67 mL/min >60 [facility] Comment on above: GFR Calc Estimated GFR (MDRD) Non-Af Amer 55 mL/min >60 [facility] Comment on above: Non- GFR Calc Serum or plasma calcium rony urement (mass/volume)Ordered By: Calderon Cordova on 12-06-2023 Calcium [Mass/Vol] 9.3 mg/dL 8.5-10.1 [facility] Serum or plasma creatinine m easurement (mass/volume)Ordered By: Calderon Cordova on 12-06-2023 Creatinine [Mass/Vol] 1.36 mg/dL 0.70-1.30 [facility] Comment on above: The validity of the calculated GFR & GFRAA in patients over 70 years has not been determined. Clinical correlation is essential. Serum or plasma urea nitroge n measurement (mass/volume)Ordered By: Calderon Cordova on 12-06-2023 Urea nitrogen [Mass/Vol] 29 mg/dL 7-18 [facility] Thin prep Papanicolaou smear with manual screeningOrdered By: Calderon Cordova on 12-06-2023 Thin prep Papanicolaou smear with manual screening 3.5 g/dL 3.2-5.0 [facility] Thin prep Papanicolaou smear with manual screening 17 U/L 15-37 [facility] Thin prep Papanicolaou smear with manual screening 2 5-15 [facility] COLONOSCOPY SCREENINGon 11-2 [facility] Influenza virus A and B and SARS-CoV-2 (COVID-19) Ag panel - Upper respiratory specimOrdered By: Garry Warren on 06-09-2023 SARS-CoV-2 (COVID-19) RNA CHUY+probe Ql (Resp) [facility] XR KNEE GENERAL 4V AP BOTH/P A BOTH/LAT/MERC LEFTon 04-26-2023 [facility] CBC panel Auto (Bld)on 04-02 Erythrocyte distribution width (RBC) [Ratio] 13.0 % 11.5 - 15.0 % [facility] Hematocrit (Bld) [Volume fraction] 47.6 % 39.0 - 51.0 % [facility] Hemoglobin (Bld) [Mass/Vol] 15.2 g/dL 13.0 - 17.0 g/dL [facility] MCH (RBC) [Entitic mass] 31.1 pg 26.0 - 34.0 pg [facility] MCHC (RBC) [Mass/Vol] 31.9 g/dL 30.5 - 36.0 g/dL [facility] MCV (RBC) [Entitic vol] 97.3 fL 80.0 - 100.0 fL [facility] Nucleated RBC (Bld) [#/Vol] <0.01 k/uL [facility] Platelet mean volume (Bld) [Entitic vol] 10.6 fL 9.0 - 12.7 fL [facility] Platelets (Bld) [#/Vol] 312 10*3/uL 150 - 400 k/uL [facility] RBC (Bld) [#/Vol] 4.89 10*6/uL 4.20 - 6.0 0 m/uL [facility] WBC (Bld) [#/Vol] 9.97 10*3/uL 3.70 - 11. 00 k/uL [facility] HbA1c (Bld)on 04-02-2023 Average glucose Estimated from glycated hemoglobin (Bld) [Mass/Vol] 169 mg/dL [facility] HbA1c (Bld) [Mass fraction] 7.5 % High 4.3 - 5.6 % [facility] Basophil percentageOrdered B y: Dr. Barakat on 11-13-2022 Bilirubin [Mass/Vol] 0.30 mg/dL 0.20-1.00 [facility] Comment on above: For patients on eltr ombopag therapy, use of Dimension Mamou TBIL is not recommended. Cholesterol [Mass/Vol] 135 mg/dL <200 [facility] Comment on above: <200 mg/dL Desirable 200-240 mg/dL Borderline >240 mg/dL High Risk Protein [Mass/Vol] 7.0 g/dL 6.4-8.2 [facility] Triglyceride [Mass/Vol] 79 mg/dL <199 [facility] Comment on above: The drugs N-Acetylcy steine and Metamizole may falsely depress this assay.Serum Triglycerides Reference Interval Normal <150 mg/dL Borderline high 150 - 199 mg/dL High 200 - 499 mg/dL Very High > or = 500 mg/dL Direct bilirubinOrdered By: Dr. Barakat on 11-13-2022 Bilirubin.direct [Mass/Vol] 0.12 mg/dL 0.00-0.30 [facility] Laboratory - Chemistry and C hemistry - challengeOrdered By: Dr. Barakat on 11-13-2022 ALP [Catalytic activity/Vol] 42 U/L 45-117 [facility] ALT [Catalytic activity/Vol] 22 U/L 16-61 [facility] Globulin (S) [Mass/Vol] 3.5 g/dL 2.2-4.2 [facility] Serum or plasma albumin rony urement (mass/volume)Ordered By: Dr. Barakat on 11-13-2022 Albumin [Mass/Vol] 3.5 g/dL 3.2-5.0 [facility] Serum or plasma cholesterol in HDL measurement (mass/volume)Ordered By: Dr. Barakat on 11-13-2022 Cholesterol in HDL [Mass/Vol] 54 mg/dL >40 [facility] Comment on above: The drugs N-Acetylcy steine and Metamizole may falsely depress this assay. Reference Range HDL <40 mg/dL Low HDL Cholesterol HDL >or= 60 mg/dL High HDL Cholesterol Serum or plasma cholesterol in VLDL measurement (mass/volume)Ordered By: Dr. Barakat on 11-13-2022 Cholesterol in VLDL [Mass/Vol] 16 mg/dL 5-40 [facility] Serum or plasma low density lipoprotein (LDL) cholesterol measurement (mass/volume)Ordered By: Dr. Barakat on 11-13-2022 Cholesterol in LDL [Mass/Vol] 65 mg/dL 0-130 [facility] Thin prep Papanicolaou smear with manual screeningOrdered By: Dr. Barakat on 11-13-2022 Thin prep Papanicolaou smear with manual screening 18 U/L 15-37 [facility] SURGICAL PATHOLOGYon 022 Case Report Surgical Pathology Report Case: [id number] Authorizing Provider: Madelin Blanc MD Collected: 09/23/2022 12:35 PM Ordering Location: Ambulatory Surgery Received: 09/23/2022 01:34 PM Pathologist: Fracisco David MD Specimen: TRANSVERSE COLON POLYP [facility] FINAL DIAGNOSIS Transverse colon june yp, biopsy: - Tubular adenoma. JEL 09/25/2022 [facility] Gross Description A. TRANSVERSE COLON POLYP Received in formalin is one piece of snow, soft tissue measuring 0.4 x 0.2 x 0.2 cm. Totally submitted in one cassette. Gross examination performed at [facility], [address] [place] [address] TTN 09/23/2022 11:34 PM [facility] Performing Lab Diagnostic interpretation performed at [facility], [address] [place] [address] CLIA# [id number] Photo Booth Operator: Damien Golden M.D. [facility] COLONOSCOPY SCREENINGon 08-28 [facility] Basophil percentageon 2021 Chloride [Moles/Vol] 107 mmol/L 98-107 [facility] Work Phone: Glucose [Mass/Vol] 126 mg/dL 74-106 [facility] Work Phone: Comment on above: Fasting Glucose resu lt greater than or equal to 126 mg/dL suggests DIABETES MELLITUS per A.D.A. criteria. Potassium [Moles/Vol] 4.3 mmol/L 3.5-5.1 [facility] Work Phone: Sodium [Moles/Vol] 138 mmol/L 136-145 [facility] Work Phone: Laboratory - Chemistry and C hemistry - challengeon 05-28-2022 CO2 [Moles/Vol] 25.0 mmol/L 21.0-32.0 [facility] Work Phone: Urea nitrogen/Creatinine [Mass ratio] 14.4 mg/mg 10-20 [facility] Work Phone: No Panel Informationon 05-28 Estimated GFR (MDRD) Amer 79 mL/min >60 [facility] Work Phone: Comment on above: GFR Calc Estimated GFR (MDRD) Non-Af Amer 65 mL/min >60 [facility] Work Phone: Comment on above: Non- GFR Calc Serum or plasma calcium rony urement (mass/volume)on 05-28-2022 Calcium [Mass/Vol] 9.3 mg/dL 8.5-10.1 [facility] Work Phone: Serum or plasma creatinine m easurement (mass/volume)on 05-28-2022 Creatinine [Mass/Vol] 1.18 mg/dL 0.70-1.30 [facility] Work Phone: Comment on above: The validity of the calculated GFR & GFRAA in patients over 70 years has not been determined. Clinical correlation is essential. Serum or plasma urea nitroge n measurement (mass/volume)on 05-28-2022 Urea nitrogen [Mass/Vol] 17 mg/dL 7-18 [facility] Work Phone: Thin prep Papanicolaou smear with manual screeningon 05-28-2022 Thin prep Papanicolaou smear with manual screening 6 5-15 [facility] Work Phone: Basophil percentageon 2021 Chloride [Moles/Vol] 106 mmol/L 98-107 [facility] Work Phone: Glucose [Mass/Vol] 147 mg/dL 74-106 [facility] Work Phone: Comment on above: Fasting Glucose resu lt greater than or equal to 126 mg/dL suggests DIABETES MELLITUS per A.D.A. criteria. Potassium [Moles/Vol] 4.4 mmol/L 3.5-5.1 [facility] Work Phone: Sodium [Moles/Vol] 140 mmol/L 136-145 [facility] Work Phone: WBC (Bld) [#/Vol] 9.8 10*3/uL 4.4-11.0 [facility] Work Phone: [phone] Blood erythrocytes count (nu mber/volume)on 05-11-2022 RBC (Bld) [#/Vol] 4.80 10*6/uL 4.6-6.2 [facility] Work Phone: Blood hemoglobin measurement (mass/volume)on 05-11-2022 Hemoglobin (Bld) [Mass/Vol] 15.2 g/dL 13.0-16.5 [facility] Work Phone: Blood platelet mean volumeon 05-11-2022 Platelet mean volume (Bld) [Entitic vol] 9.8 fL 6.2-12.0 [facility] Work Phone: Determination of erythrocyte mean corpuscular volume (MCV)on 05-11-2022 MCV (RBC) [Entitic vol] 95.6 fL 80-94 [facility] Work Phone: Hematocrit Auto (Bld) [Volum e fraction]on 05-11-2022 Hematocrit (Bld) [Volume fraction] 45.9 % 40-54 [facility] Work Phone: INR in Blood by Coagulation assayon 05-11-2022 INR Coag (Bld) [Relative time] 0.9 {INR} [facility] Work Phone: Laboratory - Chemistry and C hemistry - challengeon 05-11-2022 CO2 [Moles/Vol] 29.0 mmol/L 21.0-32.0 [facility] Work Phone: Urea nitrogen/Creatinine [Mass ratio] 22.0 mg/mg 10-20 [facility] Work Phone: Laboratory - Coagulationon 0 05-11-2022 aPTT Coag (Bld) [Time] 24.9 s 24.1-36.2 [facility] Work Phone: [phone] PT Coag (PPP) [Time] 12.3 s 11.7-14.9 [facility] Work Phone: Laboratory - Hematology and Cell countson 05-11-2022 Erythrocyte distribution width (RBC) [Entitic vol] 43.6 fL 35.1-43.9 [facility] Work Phone: [phone] Erythrocyte distribution width (RBC) [Ratio] 12.3 % 11.6-14.6 [facility] Work Phone: MCH (RBC) [Entitic mass] 31.7 pg 27.0-32.0 [facility] Work Phone: MCHC Auto (RBC) [Mass/Vol]on 05-11-2022 MCHC (RBC) [Mass/Vol] 33.1 g/dL 32-36 [facility] Work Phone: No Panel Informationon 05-11 Estimated GFR (MDRD) Amer 72 mL/min >60 [facility] Work Phone: Comment on above: GFR Calc Estimated GFR (MDRD) Non-Af Amer 60 mL/min >60 [facility] Work Phone: Comment on above: Non- GFR Calc Platelets bldon 05-11-2022 Platelets (Bld) [#/Vol] 313 10*3/uL 150-450 [facility] Work Phone: Serum or plasma calcium rony urement (mass/volume)on 05-11-2022 Calcium [Mass/Vol] 9.3 mg/dL 8.5-10.1 [facility] Work Phone: Serum or plasma creatinine m easurement (mass/volume)on 05-11-2022 Creatinine [Mass/Vol] 1.27 mg/dL 0.70-1.30 [facility] Work Phone: Comment on above: The validity of the calculated GFR & GFRAA in patients over 70 years has not been determined. Clinical correlation is essential. Serum or plasma urea nitroge n measurement (mass/volume)on 05-11-2022 Urea nitrogen [Mass/Vol] 28 mg/dL 7-18 [facility] Work Phone: Thin prep Papanicolaou smear with manual screeningon 05-11-2022 Thin prep Papanicolaou smear with manual screening 5 5-15 [facility] Work Phone: Absolute lymphocyte counton 04-22-2022 Lymphocytes Auto (Unsp spec) [#/Vol] 1.31 10*3/uL 0.83-4.51 [facility] Work Phone: Basophil percentageon 2021 Basophils/100 WBC (Bld) 0.7 % 0-1 [facility] Work Phone: Eosinophils/100 WBC (Bld) 3.2 % 0-5 [facility] Work Phone: Neutrophils (Bld) [#/Vol] 4.8 10*3/uL 2.0-7.7 [facility] Work Phone: Neutrophils/100 WBC (Bld) 67.8 % 47-70 [facility] Work Phone: Blood lymphocytes/100 leukoc yteson 04-22-2022 Lymphocytes/100 WBC (Bld) 18.4 % 19-41 [facility] Work Phone: Blood monocytes/100 leukocyt eson 04-22-2022 Monocytes/100 WBC (Bld) 9.8 % 0-10 [facility] Work Phone: Laboratory - Hematology and Cell countson 04-22-2022 Immature granulocytes/100 WBC (Bld) 0.100 % 0.0-0.9 [facility] Work Phone: Comment on above: IG% - Immature Granu locytes (promyelocytes, myelocytes and metamyelocytes) > 1% indicates that a LEFT SHIFT is Present. Nucleated RBC/100 WBC (Bld) [Ratio] 0 % 0-5 [facility] Work Phone: Basophil percentageon 2021 Bilirubin [Mass/Vol] 0.30 mg/dL 0.20-1.00 [facility] Work Phone: [phone] Comment on above: For patients on eltr ombopag therapy, use of Dimension Mamou TBIL is not recommended. Cholesterol [Mass/Vol] 162 mg/dL <200 [facility] Work Phone: [phone] Comment on above: <200 mg/dL Desirable 200-240 mg/dL Borderline >240 mg/dL High Risk Protein [Mass/Vol] 6.7 g/dL 6.4-8.2 [facility] Work Phone: [phone] Triglyceride [Mass/Vol] 74 mg/dL <199 [facility] Work Phone: [phone] Comment on above: The drugs N-Acetylcy steine and Metamizole may falsely depress this assay.Serum Triglycerides Reference Interval Normal <150 mg/dL Borderline high 150 - 199 mg/dL High 200 - 499 mg/dL Very High > or = 500 mg/dL Direct bilirubinon 2 Bilirubin.direct [Mass/Vol] 0.16 mg/dL 0.00-0.30 [facility] Work Phone: [phone] Laboratory - Chemistry and C hemistry - challengeon 04-14-2022 ALP [Catalytic activity/Vol] 41 U/L 45-117 [facility] Work Phone: [phone] ALT [Catalytic activity/Vol] 26 U/L 16-61 [facility] Work Phone: [phone] Globulin (S) [Mass/Vol] 3.1 g/dL 2.2-4.2 [facility] Work Phone: [phone] Serum or plasma albumin rony urement (mass/volume)on 04-14-2022 Albumin [Mass/Vol] 3.6 g/dL 3.2-5.0 [facility] Work Phone: Serum or plasma cholesterol in HDL measurement (mass/volume)on 04-14-2022 Cholesterol in HDL [Mass/Vol] 55 mg/dL >40 [facility] Work Phone: Comment on above: The drugs N-Acetylcy steine and Metamizole may falsely depress this assay. Reference Range HDL <40 mg/dL Low HDL Cholesterol HDL >or= 60 mg/dL High HDL Cholesterol Serum or plasma cholesterol in VLDL measurement (mass/volume)on 04-14-2022 Cholesterol in VLDL [Mass/Vol] 15 mg/dL 5-40 [facility] Work Phone: Serum or plasma low density lipoprotein (LDL) cholesterol measurement (mass/volume)on 04-14-2022 Cholesterol in LDL [Mass/Vol] 92 mg/dL 0-130 [facility] Work Phone: Thin prep Papanicolaou smear with manual screeningon 04-14-2022 Thin prep Papanicolaou smear with manual screening 19 U/L 15-37 [facility] Work Phone: XR Chest PA and Lateralon IMPRESSION: No acute radiographic abnormality. Social And Political Studies Professor: PSCB Transcribe Date/Time: Feb 13 2022 10:04A [...] thoracic spine. [id number] _DIVISION OF RADIOLOGY Provider, [facility] Mitchel brumfield [place] - 02/13/2022 * * *Final Report* * [...] spine. IMPRESSION IMPRESSION: No acute radiographic abnormality. Social And Political Studies Professor: CYNTHIA Transcribe Date/Time: Feb 13 2022 10:04A Dictated by : SARY GENTILE MD This examination was interpreted and the report reviewed and electronically signed by: SARY GENTILE MD on Feb 13 2022 10:13AM EST [facility] XR Chest PA and LateralOrder ed By: [facility] Provider on 02-13-2022 [facility] XR Chest PA and Lateralon Radiology Study observation (narrative) [facility] XR Knee - left 4 Viewson IMPRESSION: Degenerative changes as detailed in report. Small amount of left suprapatellar joint fluid. Social And Political Studies Professor: [facility] Transcribe Date/Time: Nov 28 2021 4:29P Dictated by : MALIA THOMAS MD This examination was interpreted and the report reviewed and electronically signed by: MALIA THOMAS MD on Nov 28 2021 4:32PM [facility] DIVISION OF RADIOLOGY * * *Final [...] tissues are unremarkable. DIVISION OF RADIOLOGY Provider, [facility] - 11/28/2021 * * *Final Report* * [...] Small amount of left suprapatellar joint fluid. 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 Left ventricular Ejection fraction 57 % Invalid Interpretation Code [facility] Work Phone: [phone] Office Visit: [facility] 10-30-19 17 Dietary management education, guidance, and counseling (procedure) yes Invalid Interpretation Code [facility] Work Phone: [phone] Documentation of current medications (procedure) Done Invalid Interpretation Code [facility] Work Phone: [phone] 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 Anion gap 5 mmol/L Invalid Interpretation Code [facility] Work Phone: [phone] BUN/Creatinine Ratio 17.9 mg/mg Invalid Interpretation Code [facility] Work Phone: [phone] Calcium 8.9 mg/dL Invalid Interpretation Code [facility] Work Phone: [phone] Chloride 107 mmol/L Invalid Interpretation Code [facility] Work Phone: [phone] CO2 27 mmol/L Invalid Interpretation Code [facility] Work Phone: [phone] Creatinine 0.78 mg/dL Invalid Interpretation Code [facility] Work Phone: [phone] Glucose 130 mg/dL High [facility] Work Phone: [phone] Potassium 4.0 mmol/L Invalid Interpretation Code [facility] Work Phone: [phone] Sodium 139 mmol/L Invalid Interpretation Code [facility] Work Phone: [phone] Tobacco use [facility] Current every day smoker Invalid Interpretation Code [facility] Work Phone: [phone] Urea nitrogen 14 mg/dL Invalid Interpretation Code [facility] Work Phone: [phone] 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 Cholesterol 243 mg/dL Invalid Interpretation Code [facility] Work Phone: [phone] Erythrocytes (RBC) 4.46 10*6/uL [facility]: [phone] HDL Cholesterol 47 mg/dL Invalid Interpretation Code [facility] Work Phone: [phone] Hematocrit (HCT) 42.5 % Invalid Interpretation Code [facility] Work Phone: [phone] Hemoglobin (HGB) 13.9 g/dL Invalid Interpretation Code [facility] Work Phone: [phone] LDL Cholesterol 166 mg/dL Invalid Interpretation Code [facility] Work Phone: [phone] Platelets 255 10*3/mm3 Invalid Interpretation Code [facility] Work Phone: [phone] Triglyceride 149 mg/dL Invalid Interpretation Code [facility] Work Phone: [phone] WBC (Leukocytes) 7.6 10*3/uL Invalid Interpretation Code [facility] Work Phone: [phone] 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 rapid Ql (Resp) SARS-CoV-2 Antigen (Rapid) SARS-CoV-2 (COVID 19) [facility] Work Phone: Vital Signs Date Time Vital Sign Value Performing Clinician Deb brown 05-10-2025 13:24-0400 Body mass index (BMI) [Ratio] 35.23 kg/m2 Terri Aguirre MD Work Phone: [facility] 05-10-2025 13:24-0400 Body weight 100.61 kg Terri Aguirre MD Work Phone: [facility] 05-10-2025 13:24-0400 Diastolic blood pressure 77 mm[Hg] Terri Aguirre MD Work Phone: [facility] 05-10-2025 13:24-0400 Heart rate 89 /min Terri Aguirre MD Work Phone: [facility] 05-10-2025 13:24-0400 Respiratory rate 16 /min Terri Aguirre MD Work Phone: [facility] 05-10-2025 13:24-0400 Systolic blood pressure 126 mm[Hg] Terri Aguirre MD Work Phone: [facility] 04-10-2025 13:50-0400 Body height 169 cm Liat Mary GAME PRESERVE MANAGER.SUPPORT ANALYST Work Phone: [facility] 04-10-2025 13:50-0400 Body mass index (BMI) [Ratio] 34.98 kg/m2 Liat Mary GAME PRESERVE MANAGER.SUPPORT ANALYST Work Phone: [facility] 04-10-2025 13:50-0400 Body weight 99.9 kg Liat Mary GAME PRESERVE MANAGER.SUPPORT ANALYST Work Phone: [facility] 04-10-2025 13:50-0400 Diastolic blood pressure 72 mm[Hg] Liat Mary GAME PRESERVE MANAGER.SUPPORT ANALYST Work Phone: [facility] 04-10-2025 13:50-0400 Heart rate 68 /min Liat Mary GAME PRESERVE MANAGER.SUPPORT ANALYST Work Phone: [facility] 04-10-2025 13:50-0400 Respiratory rate 14 /min Liat Mary GAME PRESERVE MANAGER.SUPPORT ANALYST Work Phone: [facility] 04-10-2025 13:50-0400 SaO2% (BldA) [Mass fraction] 96 % Liat Mary GAME PRESERVE MANAGER.SUPPORT ANALYST Work Phone: [facility] 04-10-2025 13:50-0400 Systolic blood pressure 126 mm[Hg] Liat Mary GAME PRESERVE MANAGER.SUPPORT ANALYST Work Phone: [facility] 12-04-2024 14:28-0400 Body mass index (BMI) [Ratio] 35.63 kg/m2 Tito Evans GAME PRESERVE MANAGER.SUPPORT ANALYST Work Phone: [facility] 12-04-2024 14:28-0400 Body weight 100.88 kg Tito Nathan GAME PRESERVE MANAGER.SUPPORT ANALYST Work Phone: [facility] 12-04-2024 14:28-0400 Diastolic blood pressure 72 mm[Hg] Tito Nathan GAME PRESERVE MANAGER.SUPPORT ANALYST Work Phone: [facility] 12-04-2024 14:28-0400 Heart rate 74 /min Tito Nathan GAME PRESERVE MANAGER.SUPPORT ANALYST Work Phone: [facility] 12-04-2024 14:28-0400 Respiratory rate 18 /min Tito Nathan GAME PRESERVE MANAGER.SUPPORT ANALYST Work Phone: [facility] 12-04-2024 14:28-0400 SaO2% (BldA) [Mass fraction] 93 % Tito Nathan GAME PRESERVE MANAGER.SUPPORT ANALYST Work Phone: [facility] 12-04-2024 14:28-0400 Systolic blood pressure 103 mm[Hg] Tito Nathan GAME PRESERVE MANAGER.SUPPORT ANALYST Work Phone: [facility] 11-02-2024 14:06-0500 Body mass index (BMI) [Ratio] 35.81 kg/m2 Grant Krause MD Work Phone: [facility] 11-02-2024 14:06-0500 Body temperature 98.29 [degF] Grant Krause MD Work Phone: [facility] 11-02-2024 14:06-0500 Body weight 101.4 kg Grant Krause MD Work Phone: [facility] 11-02-2024 14:06-0500 Diastolic blood pressure 66 mm[Hg] Grant Krause MD Work Phone: [facility] 11-02-2024 14:06-0500 Heart rate 76 /min Garnt Krause MD Work Phone: [facility] 11-02-2024 14:06-0500 Respiratory rate 16 /min Grant Krause MD Work Phone: [facility] 11-02-2024 14:06-0500 Systolic blood pressure 110 mm[Hg] Grant Krause MD Work Phone: [facility] 10-09-2024 12:59-0500 Body mass index (BMI) [Ratio] 35.67 kg/m2 Grant Krause MD Work Phone: [facility] 10-09-2024 12:59-0500 Body temperature 98.1 [degF] Grant Krause MD Work Phone: [facility] 10-09-2024 12:59-0500 Body weight 101 kg Grant Krause MD Work Phone: [facility] 10-09-2024 12:59-0500 Diastolic blood pressure 76 mm[Hg] Grant Krause MD Work Phone: [facility] 10-09-2024 12:59-0500 Heart rate 64 /min Grant Krause MD Work Phone: [facility] 10-09-2024 12:59-0500 Respiratory rate 16 /min Grant Krause MD Work Phone: [facility] 10-09-2024 12:59-0500 Systolic blood pressure 118 mm[Hg] Grant Krause MD Work Phone: [facility] 07-21-2024 15:41-0400 Body mass index (BMI) [Ratio] 35.46 kg/m2 Tad Moomaw GAME PRESERVE MANAGER.SUPPORT ANALYST Work Phone: [facility] 07-21-2024 15:41-0400 Body temperature 99.61 [degF] Tad Moomaw GAME PRESERVE MANAGER.SUPPORT ANALYST Work Phone: [facility] 07-21-2024 15:41-0400 Body weight 100.4 kg Tad Moomaw GAME PRESERVE MANAGER.SUPPORT ANALYST Work Phone: [facility] 07-21-2024 15:41-0400 Diastolic blood pressure 78 mm[Hg] Tad Moomaw GAME PRESERVE MANAGER.SUPPORT ANALYST Work Phone: [facility] 07-21-2024 15:41-0400 Heart rate 102 /min Tad Moomaw GAME PRESERVE MANAGER.SUPPORT ANALYST Work Phone: [facility] 07-21-2024 15:41-0400 Respiratory rate 18 /min Tad Moomaw GAME PRESERVE MANAGER.SUPPORT ANALYST Work Phone: [facility] 07-21-2024 15:41-0400 SaO2% (BldA) [Mass fraction] 96 % Tad Moomaw GAME PRESERVE MANAGER.SUPPORT ANALYST Work Phone: [facility] 07-21-2024 15:41-0400 Systolic blood pressure 128 mm[Hg] Tad Moomaw GAME PRESERVE MANAGER.SUPPORT ANALYST Work Phone: [facility] 07-19-2024 14:18-0400 Body mass index (BMI) [Ratio] 35.88 kg/m2 Grant Krause MD Work Phone: [facility] 07-19-2024 14:18-0400 Body temperature 98.01 [degF] Grant Krause MD Work Phone: [facility] 07-19-2024 14:18-0400 Body weight 101.6 kg Grant Krause MD Work Phone: [facility] 07-19-2024 14:18-0400 Diastolic blood pressure 60 mm[Hg] Grant Krause MD Work Phone: [facility] 07-19-2024 14:18-0400 Heart rate 64 /min Grant Krause MD Work Phone: [facility] 07-19-2024 14:18-0400 Respiratory rate 16 /min Grant Krause MD Work Phone: [facility] 07-19-2024 14:18-0400 Systolic blood pressure 102 mm[Hg] Grant Krause MD Work Phone: [facility] 06-16-2024 14:45-0400 Body mass index (BMI) [Ratio] 35.03 kg/m2 Grant Krause MD Work Phone: [facility] 06-16-2024 14:45-0400 Body temperature 97.39 [degF] Grant Krause MD Work Phone: [facility] 06-16-2024 14:45-0400 Body weight 99.2 kg Grant Krause MD Work Phone: [facility] 06-16-2024 14:45-0400 Diastolic blood pressure 82 mm[Hg] Grant Krause MD Work Phone: [facility] 06-16-2024 14:45-0400 Heart rate 72 /min Grant Krause MD Work Phone: [facility] 06-16-2024 14:45-0400 Respiratory rate 18 /min Grant Krause MD Work Phone: [facility] 06-16-2024 14:45-0400 SaO2% (BldA) [Mass fraction] 96 % Grant Krause MD Work Phone: [facility] 06-16-2024 14:45-0400 Systolic blood pressure 118 mm[Hg] Grant Krause MD Work Phone: [facility] 02-22-2024 12:51-0400 Body mass index (BMI) [Ratio] 35.34 kg/m2 Liat Mary GAME PRESERVE MANAGER.SUPPORT ANALYST Work Phone: [facility] 02-22-2024 12:51-0400 Body weight 100.06 kg Liat Mary GAME PRESERVE MANAGER.SUPPORT ANALYST Work Phone: [facility] 02-22-2024 12:51-0400 Diastolic blood pressure 60 mm[Hg] Liat Mary GAME PRESERVE MANAGER.SUPPORT ANALYST Work Phone: [facility] 02-22-2024 12:51-0400 Heart rate 60 /min Liat Mary GAME PRESERVE MANAGER.SUPPORT ANALYST Work Phone: [facility] 02-22-2024 12:51-0400 Respiratory rate 20 /min Liat Mary GAME PRESERVE MANAGER.SUPPORT ANALYST Work Phone: [facility] 02-22-2024 12:51-0400 Systolic blood pressure 106 mm[Hg] Liat Mary GAME PRESERVE MANAGER.SUPPORT ANALYST Work Phone: [facility] 02-07-2024 12:49-0400 Body height 168.3 cm Liat Mary GAME PRESERVE MANAGER.SUPPORT ANALYST Work Phone: [facility] 02-07-2024 12:49-0400 Body mass index (BMI) [Ratio] 36.04 kg/m2 Liat Mary GAME PRESERVE MANAGER.SUPPORT ANALYST Work Phone: [facility] 02-07-2024 12:49-0400 Body weight 102.06 kg Liat Mary GAME PRESERVE MANAGER.SUPPORT ANALYST Work Phone: [facility] 02-07-2024 12:49-0400 Diastolic blood pressure 68 mm[Hg] Liat Mary GAME PRESERVE MANAGER.SUPPORT ANALYST Work Phone: [facility] 02-07-2024 12:49-0400 Heart rate 69 /min Liat Mary GAME PRESERVE MANAGER.SUPPORT ANALYST Work Phone: [facility] 02-07-2024 12:49-0400 Respiratory rate 16 /min [facility] Mary GAME PRESERVE MANAGER.SUPPORT ANALYST Work Phone: [facility] 02-07-2024 12:49-0400 SaO2% (BldA) [Mass fraction] 94 % [facility] Mary GAME PRESERVE MANAGER.SUPPORT ANALYST Work Phone: [facility] 02-07-2024 12:49-0400 Systolic blood pressure 110 mm[Hg] Liat Mary GAME PRESERVE MANAGER.SUPPORT ANALYST Work Phone: [facility] 12-06-2023 14:44-0400 Body height 170.[address] Grant Krause Work Phone: [facility] 12-06-2023 14:44-0400 Body mass index (BMI) [Ratio] 34.9 kg/m2 Dr. Grant Krause Work Phone: [facility] 12-06-2023 14:44-0400 Body weight 101.[address] Grant Krause Work Phone: [facility] 12-06-2023 14:44-0400 Diastolic blood pressure 81 mm[Hg] Dr. Grant Krause Work Phone: [facility] 12-06-2023 14:44-0400 Heart rate 74 /min Dr. Grant Krause Work Phone: [facility] 12-06-2023 14:44-0400 Respiratory rate 16 /min Dr. Grant Krause Work Phone: [facility] 12-06-2023 14:44-0400 Systolic blood pressure 128 mm[Hg] Dr. Grant Krause Work Phone: [facility] 08-25-2023 09:56-0500 Diastolic blood pressure 78 mm[Hg] Madelin Blanc MD Work Phone: [facility] 08-25-2023 09:56-0500 Heart rate 82 /min Madelin Blanc MD Work Phone: [facility] 08-25-2023 09:56-0500 Respiratory rate 16 /min Madelin Blanc MD Work Phone: [facility] 08-25-2023 09:56-0500 SaO2% (BldA) [Mass fraction] 96 % Madelin Blanc MD Work Phone: [facility] 08-25-2023 09:56-0500 Systolic blood pressure 148 mm[Hg] Madelin Blanc MD Work Phone: [facility] 08-25-2023 08:14-0500 Body temperature 97.11 [degF] Madelin Blanc MD Work Phone: [facility] 08-25-2023 08:14-0500 Body weight 100.6 kg Madelin Blanc MD Work Phone: [facility] 08-04-2023 15:40-0500 Body height 170.2 cm Madelin Blanc MD Work Phone: [facility] 08-04-2023 15:40-0500 Body temperature 98.6 [degF] Madelin Blanc MD Work Phone: [facility] 08-04-2023 15:40-0500 Body weight 100.61 kg Madeiln Blanc MD Work Phone: [facility] 08-04-2023 15:40-0500 Diastolic blood pressure 82 mm[Hg] Madelin Blanc MD Work Phone: [facility] 08-04-2023 15:40-0500 Heart rate 77 /min Madelin Blanc MD Work Phone: [facility] 08-04-2023 15:40-0500 SaO2% (BldA) [Mass fraction] 96 % Madelin Blanc MD Work Phone: [facility] 08-04-2023 15:40-0500 Systolic blood pressure 126 mm[Hg] Madelin Blanc MD Work Phone: [facility] 06-09-2023 11:34-0400 Body height 170.[address] Grant Krause Work Phone: 8(827)593-718687 [place] [address] 06-09-2023 11:34-0400 Body mass index (BMI) [Ratio] 34.4 kg/m2 Dr. Grant Krause Work Phone: 0(170)733-876887 [place] [address] 06-09-2023 11:34-0400 Body temperature 97.2 [degF] Dr. Grant Krause Work Phone: 6(918)408-839892 [place] [address] 06-09-2023 11:34-0400 Body weight 99.[address] Grant Krause Work Phone: 0(527)719-573387 [place] [address] 06-09-2023 11:34-0400 Diastolic blood pressure 81 mm[Hg] Dr. Grant Krause Work Phone: 6(982)293-975787 [place] [address] 06-09-2023 11:34-0400 Heart rate 68 /min Dr. Grant Krause Work Phone: 0(146)430-670487 [place] [address] 06-09-2023 11:34-0400 Respiratory rate 18 /min Dr. Grant Krause Work Phone: 9(012)544-236187 [place] [address] 06-09-2023 11:34-0400 SaO2% (BldA) [Mass fraction] 96 % Dr. Grant Krause Work Phone: 2(096)269-743087 [place] [address] 06-09-2023 11:34-0400 Systolic blood pressure 131 mm[Hg] Dr. Grant Krause Work Phone: [facility] 05-14-2023 11:20-0400 Body mass index (BMI) [Ratio] 33.3 kg/m2 Dr. Grant Krause Work Phone: [facility] 05-14-2023 11:20-0400 Body weight 96.[address] Grant Krause Work Phone: [facility] 05-14-2023 11:20-0400 Diastolic blood pressure 67 mm[Hg] Dr. Grant Krause Work Phone: [facility] 05-14-2023 11:20-0400 Heart rate 62 /min Dr. Grant Krause Work Phone: 7(633)397-443887 [place] [address] 05-14-2023 11:20-0400 Respiratory rate 18 /min Dr. Grant Krause Work Phone: [facility] 05-14-2023 11:20-0400 Systolic blood pressure 109 mm[Hg] Dr. Grant Krause Work Phone: [facility] 04-02-2023 13:11-0400 Body weight 98.88 kg Grant Krause MD Work Phone: [facility] 04-02-2023 13:11-0400 Diastolic blood pressure 72 mm[Hg] Grant Krause MD Work Phone: [facility] 04-02-2023 13:11-0400 Heart rate 64 /min Grant Krause MD Work Phone: [facility] 04-02-2023 13:11-0400 Respiratory rate 18 /min Grant Krause MD Work Phone: [facility] 04-02-2023 13:11-0400 Systolic blood pressure 114 mm[Hg] Grant Krause MD Work Phone: [facility] 12-16-2022 15:18-0400 Body height 168 cm Liat Older GAME PRESERVE MANAGER.SUPPORT ANALYST Work Phone: [facility] 12-16-2022 15:18-0400 Body weight 97.98 kg Liat Older GAME PRESERVE MANAGER.SUPPORT ANALYST Work Phone: [facility] 12-16-2022 15:18-0400 Diastolic blood pressure 77 mm[Hg] Liat Older GAME PRESERVE MANAGER.SUPPORT ANALYST Work Phone: [facility] 12-16-2022 15:18-0400 Heart rate 69 /min Liat Older GAME PRESERVE MANAGER.SUPPORT ANALYST Work Phone: [facility] 12-16-2022 15:18-0400 Respiratory rate 18 /min Liat Older GAME PRESERVE MANAGER.SUPPORT ANALYST Work Phone: [facility] 12-16-2022 15:18-0400 Systolic blood pressure 113 mm[Hg] Liat Older GAME PRESERVE MANAGER.SUPPORT ANALYST Work Phone: [facility] 11-13-2022 11:03-0500 Body height 170.[address] Grant Krause Work Phone: [facility] 11-13-2022 11:03-0500 Body mass index (BMI) [Ratio] 34.1 kg/m2 Dr. Grant Krause Work Phone: [facility] 11-13-2022 11:03-0500 Body weight 98.[address] Grant Krause Work Phone: [facility] 11-13-2022 11:03-0500 Diastolic blood pressure 72 mm[Hg] Dr. Grant Krause Work Phone: [facility] 11-13-2022 11:03-0500 Heart rate 64 /min Dr. Grant Krause Work Phone: [facility] 11-13-2022 11:03-0500 Respiratory rate 18 /min Dr. Grant Krause Work Phone: [facility] 11-13-2022 11:03-0500 Systolic blood pressure 118 mm[Hg] Dr. Grant Krause Work Phone: [facility] 09-23-2022 13:13-0500 Diastolic blood pressure 73 mm[Hg] Madelin Blanc MD Work Phone: [facility] 09-23-2022 13:13-0500 Heart rate 76 /min Madelin Blanc MD Work Phone: [facility] 09-23-2022 13:13-0500 Respiratory rate 16 /min Madelin Blanc MD Work Phone: [facility] 09-23-2022 13:13-0500 SaO2% (BldA) [Mass fraction] 93 % Madelin Blanc MD Work Phone: [facility] 09-23-2022 13:13-0500 Systolic blood pressure 117 mm[Hg] Madelin Blanc MD Work Phone: [facility] 09-23-2022 11:05-0500 Body temperature 97.5 [degF] Madelin Blanc MD Work Phone: [facility] 05-26-2022 07:44-0400 Body height 170.[address] Grant Krause Work Phone: [facility] Work Phone: 05-26-2022 07:44-0400 Body weight 90.[address] Grant Krause Work Phone: [facility] Work Phone: 05-25-2022 08:13-0400 Body mass index (BMI) [Ratio] 31.3 kg/m2 Dr. Grant Krause Work Phone: [facility] Work Phone: 05-11-2022 13:58-0400 Body temperature 98.1 [degF] Grant Krause MD Work Phone: [facility] 05-11-2022 13:58-0400 Body weight 88.36 kg Grant Krause MD Work Phone: [facility] 05-11-2022 13:58-0400 Diastolic blood pressure 80 mm[Hg] Grant Krause MD Work Phone: [facility] 05-11-2022 13:58-0400 Heart rate 80 /min Grant Krause MD Work Phone: [facility] 05-11-2022 13:58-0400 Respiratory rate 16 /min Grant Krause MD Work Phone: [facility] 05-11-2022 13:58-0400 Systolic blood pressure 102 mm[Hg] Grant Krause MD Work Phone: [facility] 04-26-2022 00:21-0400 Heart rate 94 /min Dr. Grant Krause Work Phone: [facility] Work Phone: 04-26-2022 00:21-0400 Respiratory rate 17 /min Dr. Grant Krause Work Phone: [facility] Work Phone: 04-26-2022 00:21-0400 SaO2% (BldA) [Mass fraction] 99 % Dr. Grant Krause Work Phone: [facility] Work Phone: 04-25-2022 22:42-0400 Body height 170.[address] Grant Krause Work Phone: [facility] Work Phone: 04-25-2022 22:42-0400 Body mass index (BMI) [Ratio] 29 kg/m2 Dr. Grant Krause Work Phone: [facility] Work Phone: 04-25-2022 22:42-0400 Body temperature 98.9 [degF] Dr. Grant Krause Work Phone: [facility] Work Phone: 04-25-2022 22:42-0400 Body weight 83.[address] Grant Krause Work Phone: [facility] Work Phone: 04-25-2022 22:42-0400 Diastolic blood pressure 88 mm[Hg] Dr. Grant Krause Work Phone: [facility] Work Phone: 04-25-2022 22:42-0400 Systolic blood pressure 158 mm[Hg] Dr. Grant Krause Work Phone: [facility] Work Phone: 04-22-2022 09:07-0400 Body mass index (BMI) [Ratio] 31.4 kg/m2 Dr. Grant Krause Work Phone: [facility] Work Phone: 04-22-2022 09:07-0400 Body weight 90.[address] Grant Krause Work Phone: [facility] Work Phone: 04-22-2022 09:07-0400 Diastolic blood pressure 78 mm[Hg] Dr. Grant Krause Work Phone: [facility] Work Phone: 04-22-2022 09:07-0400 Heart rate 60 /min Dr. Grant Krause Work Phone: [facility] Work Phone: 04-22-2022 09:07-0400 Respiratory rate 16 /min Dr. Grant Krause Work Phone: [facility] Work Phone: 04-22-2022 09:07-0400 Systolic blood pressure 122 mm[Hg] Dr. Grant Krause Work Phone: [facility] Work Phone: 03-16-2022 13:36-0400 Body height 170.[address] Grant Krause Work Phone: [facility] Work Phone: 03-16-2022 13:36-0400 Body mass index (BMI) [Ratio] 30.6 kg/m2 Dr. Grant Krause Work Phone: [facility] Work Phone: 03-16-2022 13:36-0400 Body weight 88.[address] Grant Krause Work Phone: [facility] Work Phone: 03-16-2022 13:36-0400 Diastolic blood pressure 62 mm[Hg] Dr. Grant Krause Work Phone: [facility] Work Phone: 03-16-2022 13:36-0400 Heart rate 60 /min Dr. Grant Krause Work Phone: [facility] Work Phone: 03-16-2022 13:36-0400 Respiratory rate 16 /min Dr. Grant Krause Work Phone: [facility] Work Phone: 03-16-2022 13:36-0400 Systolic blood pressure 96 mm[Hg] Dr. Grant Krause Work Phone: [facility] Work Phone: 01-29-2022 14:41-0400 Body height 170.[address] Grant Krause Work Phone: [facility] Work Phone: 01-29-2022 14:41-0400 Body mass index (BMI) [Ratio] 31.1 kg/m2 Dr. Grant Krause Work Phone: [facility] Work Phone: 01-29-2022 14:41-0400 Body temperature 98.1 [degF] Dr. Grant Krause Work Phone: [facility] Work Phone: 01-29-2022 14:41-0400 Body weight 90.[address] Grant Krause Work Phone: [facility] Work Phone: 01-29-2022 14:41-0400 Diastolic blood pressure 73 mm[Hg] Dr. Grant Krause Work Phone: [facility] Work Phone: 01-29-2022 14:41-0400 Heart rate 76 /min Dr. Grant Krause Work Phone: [facility] Work Phone: 01-29-2022 14:41-0400 Respiratory rate 15 /min Dr. Grant Krause Work Phone: [facility] Work Phone: 01-29-2022 14:41-0400 SaO2% (BldA) [Mass fraction] 97 % Dr. Grant Krause Work Phone: [facility] Work Phone: 01-29-2022 14:41-0400 Systolic blood pressure 143 mm[Hg] Dr. Grant Krause Work Phone: [facility] Work Phone: 12-08-2021 15:15-0400 Body mass index (BMI) [Ratio] 30.2 kg/m2 Dr. Grant Krause Work Phone: [facility] Work Phone: 12-08-2021 15:15-0400 Body weight 87.[address] Grant Krause Work Phone: [facility] Work Phone: 12-08-2021 15:15-0400 Diastolic blood pressure 58 mm[Hg] Dr. Grant Krause Work Phone: [facility] Work Phone: 12-08-2021 15:15-0400 Heart rate 66 /min Dr. Grant Krause Work Phone: [facility] Work Phone: 12-08-2021 15:15-0400 Respiratory rate 18 /min Dr. Grant Krause Work Phone: [facility] Work Phone: 12-08-2021 15:15-0400 Systolic blood pressure 96 mm[Hg] Dr. Grant Krause Work Phone: [facility] Work Phone: 10-30-2016 15:58-0500 BMI (Body Mass Index) 32.04 kg/m2 Jovita Mckeon RN [facility] Work Phone: 10-30-2016 15:58-0500 BP Diastolic 74 mm[Hg] Jovita Mckeon RN [facility] Work Phone: 10-30-2016 15:58-0500 BP Systolic 110 mm[Hg] Jovita Mckeon RN [facility] Work Phone: 10-30-2016 15:58-0500 BSA (Body Surface Area) 2.04 m2 Jovita Mckeon RN [facility] Work Phone: 10-30-2016 15:58-0500 Height 170.18 cm Jovita Mckeon RN [facility] Work Phone: 10-30-2016 15:58-0500 Pulse (Heart Rate) 72 /min Jovita Mckeon RN [facility] Work Phone: 10-30-2016 15:58-0500 Respiratory Rate 18 /min Jovita Mckeon RN [facility] Work Phone: 10-30-2016 15:58-0500 Weight 92.81 kg Jovita Mckeon RN [facility] Work Phone: Encounters Encounter Date Encounter Type Care Provider Facility Start: 08-02-2025 End: 08-02-2025 ambulatory GRANT KRAUSE Facility:[facility] Start: 07-30-2025 End: 07-30-2025 ambulatory GRANT KRAUSE Facility:[facility] Start: 07-10-2025 ambulatory TERRI AGUIRRE Facility:[id number] Start: 06-27-2025 End: 06-27-2025 ambulatory GRANT KRAUSE Facility:[facility] Start: 06-01-2025 End: 06-01-2025 Patient encounter procedure Margarito Opal Work Phone: Podiatry Comment on above: Onychomycosis (Prima ry Dx); Pain in toe of left foot; Pain in toe of right foot; Diabetic polyneuropathy associated with type 2 diabetes mellitus (HCC); Acquired hallux valgus of right foot Start: 06-01-2025 End: 06-01-2025 ambulatory GRANT KRAUSE Facility:[facility] Start: 05-10-2025 End: 05-10-2025 ambulatory GRANT KRAUSE Facility:[facility] Start: 05-10-2025 End: 05-10-2025 Office consultation new/estab patient 60 min Terri Aguirre MD Work Phone: Geriatrics Comment on above: Cognitive impairment , mild, so stated (Primary Dx); Cognitive deficits Start: 05-10-2025 End: 05-10-2025 ambulatory GRANT KRAUSE Facility:[facility] Start: 05-09-2025 End: 05-09-[address] Grant Krause MD Work Phone: -Sleep Lab Start: 05-09-2025 End: 05-09-2025 Patient encounter procedure Tito Evans C[employer]OMER [employer] [facility] Work Phone: Start: 05-09-2025 End: 05-09-2025 ambulatory Grant Krause Facility:[facility] Start: 04-23-2025 End: 04-23-2025 Patient encounter procedure Nilda Kim PA-C Work Phone: Orthopaedics Comment on above: Primary osteoarthrit is of left knee (Primary Dx) Start: 04-23-2025 End: 04-23-2025 ambulatory GRANT KRAUSE Facility:[facility] Start: 04-11-2025 End: 04-11-2025 Follow-up encounter Liat Smith APRN.CNP Work Phone: [facility] Start: 04-10-2025 End: 04-10-2025 Office outpatient visit 25 minutes Liat Smith APRN.CNP Work Phone: [facility] Comment on above: Medicare annual well ness visit, subsequent (Primary Dx); Oral dyskinesia; Type 2 diabetes mellitus with stage 3a chronic kidney disease, without long-term current use of insulin (HCC); Cognitive deficits; Essential hypertension; Encounter for screening examination for other mental health and behavioral disorders; Screening for depression Start: 04-10-2025 End: 04-10-2025 ambulatory GRANT KRAUSE Facility:[facility] Start: 04-10-2025 End: 04-10-2025 Patient encounter procedure Liat Smith APRN.SUPPORT ANALYST Work Phone: [facility] Start: 04-02-2025 End: 04-03-2025 Refill Grant Krause MD Work Phone: [facility] Comment on above: Refill Request Start: 03-12-2025 End: 03-12-2025 Refill Grant Krause MD Work Phone: [facility] Comment on above: Refill Request Start: 02-15-2025 End: 02-15-2025 ambulatory GRANT KRAUSE Facility:[facility] Start: 02-05-2025 End: 02-05-2025 Refill Grant Krause MD Work Phone: [facility] Comment on above: Refill Request Start: 01-15-2025 End: 01-15-2025 Patient encounter procedure Nilda Kim PA-C Work Phone: Orthopaedics Comment on above: Primary osteoarthrit is of left knee (Primary Dx) Start: 01-15-2025 End: 01-15-2025 ambulatory GRANT KRAUSE Facility:[facility] Start: 12-04-2024 End: 12-04-2024 Patient encounter procedure Tito Evans APRN.SUPPORT ANALYST Work Phone: Neurology Comment on above: ALBAN on CPAP (Primary Dx) Start: 12-04-2024 End: 12-04-2024 ambulatory GRANT KRAUSE Facility:[facility] Start: 11-28-2024 End: 11-28-2024 ambulatory GRANT KRAUSE Facility:[facility] Start: 11-28-2024 End: 11-28-2024 Patient encounter procedure Margarito Joseph Work Phone: Podiatry Comment on above: Onychomycosis (Prima ry Dx); Pain in toe of left foot; Pain in toe of right foot; Diabetic polyneuropathy associated with type 2 diabetes mellitus (HCC) Start: 11-09-2024 End: 11-09-2024 Telephone encounter Margarito Kimblesahara Work Phone: Podiatry Comment on above: Appointment Start: 11-02-2024 End: 11-02-2024 ambulatory GRANT KRAUSE Facility:[facility] Start: 11-02-2024 End: 11-02-2024 Office outpatient visit 25 minutes Grant Krause MD Work Phone: [facility] Comment on above: ALBAN on CPAP (Primary Dx); Controlled type 2 diabetes mellitus without complication, without long-term current use of insulin ([facility]); BPH with obstruction/lower urinary tract symptoms; Essential hypertension Start: 11-01-2024 End: 11-01-2024 Refill Grant Krause MD Work Phone: [facility] Comment on above: Refill Request Start: 10-24-2024 End: 10-30-2024 Refill Grant Krause MD Work Phone: [facility] Comment on above: Refill Request Refill Request; Medi cation Problem (Patient is out of his inhaler.) Patient Update (CPAP supplies) Start: 10-09-2024 End: 10-09-2024 Office outpatient visit 15 minutes Grant Krause MD Work Phone: [facility] Comment on above: Seborrheic keratosis (Primary Dx); Controlled type 2 diabetes mellitus without complication, without long-term current use of insulin (HCC); Mixed hyperlipidemia; Oral dyskinesia Start: 10-09-2024 End: 10-09-2024 Refill Grant Krause MD Work Phone: [facility] Comment on above: Refill Request Primary osteoarthrit is of left knee (Primary Dx) Start: 10-06-2024 End: 10-06-2024 ambulatory GRANT KRAUSE Facility:[facility] Start: 09-18-2024 End: 09-18-2024 Refill Grant Krause MD Work Phone: Internal Medicine [place] Comment on above: Refill Request Start: 08-14-2024 End: 08-14-2024 [facility] Work Phone: [facility] Start: 08-14-2024 End: 08-14-2024 Patient encounter procedure Teressa Pansiacasio [facility] Work Phone: [facility] Comment on above: Allied Health Visit (Statin Use Review) Start: 08-03-2024 End: 08-04-2024 Refill Grant Krause MD Work Phone: Internal Medicine [place] Comment on above: Refill Request Start: 07-27-2024 End: 07-27-2024 ambulatory Grant Krause MD Work Phone: Pharm [facility] Start: 07-21-2024 End: 07-21-2024 Patient encounter procedure Tad Stratton GAME PRESERVE MANAGER.SUPPORT ANALYST Work Phone: [facility] Comment on above: Acute cough (Primary Dx) Start: 07-19-2024 End: 07-19-2024 Office outpatient visit 15 minutes Grant Krause MD Work Phone: Internal Medicine [place] Comment on above: Chest pain, unspecif ied type (Primary Dx); Coronary artery disease involving match-e[place]be[place]she[place]ish band coronary artery of match-e-be[place]nash[place]ish band heart without angina pectoris; Type 2 diabetes mellitus with stage 3a chronic kidney disease, without long-term current use of insulin (HCC); Mixed hyperlipidemia Start: 07-11-2024 End: 07-11-2024 ambulatory Grant Krause Facility:[facility] Start: 06-23-2024 End: 06-23-2024 Patient encounter procedure Margarito Joseph Work Phone: Podiatry Comment on above: Onychomycosis (Prima ry Dx); Pain in toe of left foot; Pain in toe of right foot; Diabetic polyneuropathy associated with type 2 diabetes mellitus (HCC); Acquired hallux valgus, unspecified laterality Start: 06-21-2024 End: 06-21-2024 Refill Grant Krause MD Work Phone: Family [facility] Comment on above: Refill Request Start: 06-20-2024 [...] of insulin (HCC); Coronary artery disease involving match-e[place]be[place]ish band coronary artery of match-e-be[place]ish band heart without angina pectoris; Oral dyskinesia Start: 06-06-2024 End: 06-06-2024 ambulatory Grant Krause Facility:[facility] Start: 06-06-2024 End: 06-06-2024 ambulatory Grant Krause Facility:[facility] Start: 06-05-2024 End: 06-05-2024 Patient encounter procedure Nilda Kim PA-C Work Phone: Orthopaedics Comment on above: Primary osteoarthrit is of left knee (Primary Dx) Start: 05-05-2024 Refill Grant allen MD Work Phone: Internal Medicine [place] Comment on above: Refill Request Start: 04-27-2024 Refill Grant allen MD Work Phone: Internal [facility] [place] Comment on above: Refill Request Start: 04-18-2024 Refill Grant allen MD Work Phone: Internal [facility] [place] Comment on above: Refill Request Start: 04-12-2024 [...] Grant allen MD Work Phone: Internal [facility] [place] Comment on above: Refill Request Start: 02-22-2024 End: 02-22-2024 Patient encounter procedure Liat Smith APRN.SUPPORT ANALYST Work Phone: Internal [facility] [place] Comment on above: Patient request for diagnostic testing (Primary Dx) Start: 02-22-2024 End: 02-22-2024 Patient requested procedure Liat Smith APRN.SUPPORT ANALYST Work Phone: [facility] Work Phone: Start: 02-14-2024 End: 02-14-2024 Patient encounter procedure Nilda Kim PA-C Work Phone: Orthopaedics Comment on above: Primary osteoarthrit is of left knee (Primary Dx) Start: 02-09-2024 Telephone encounter Grant connell MD Work Phone: Internal [facility] [place] Comment on above: Results Start: 02-07-2024 End: 02-07-2024 Patient encounter procedure Liathiro Smith APRN.CNP Work Phone: Internal [facility] [place] Comment on above: Medicare annual well ness visit, subsequent (Primary Dx); Renal insufficiency Start: 01-14-2024 Refill Grant allen MD Work Phone: Internal Medicine [place] Comment on above: Refill Request Start: 01-13-2024 Non-patient / Non-visit Dr. Radha Krause Work Phone: [facility] Start: 01-13-2024 End: 01-13-[address] Grant Krause Work Phone: [facility] Work Phone: Start: 01-13-2024 End: 01-13-[address] Grant Krause Work Phone: [facility]-Cardiovascula r Services Work Phone: Start: 01-12-2024 Refill Grant allen MD Work Phone: Internal [facility] [place] Comment on above: Refill Request Start: 12-14-2023 End: 12-14-[address] Grant Krause Work Phone: [facility] Work Phone: Start: 12-14-2023 End: 12-14-[address] Grant Krause Work Phone: [facility]-Laboratory Work Phone: Start: 12-07-2023 Telephone encounter Grant connell MD Work Phone: Internal [facility] [place] Comment on above: Patient Update Start: 12-06-2023 End: 12-06-[address] Grant Krause Work Phone: [facility] Work Phone: Start: 12-06-2023 End: 12-06-[address] Grant Krause Work Phone: [facility] Work Phone: Start: 12-06-2023 End: 12-06-[address] Grant Krause Work Phone: [facility] Work Phone: Start: 11-23-2023 Refill Grant allen MD Work Phone: Internal [facility] [place] Comment on above: Refill Request Start: 11-08-2023 End: 11-08-2023 Patient encounter procedure Nilda Kim PA-C Work Phone: Orthopaedics Comment on above: Primary osteoarthrit is of left knee (Primary Dx) Start: 08-26-2023 Refill Grant allen MD Work Phone: Internal [facility] [place] Comment on above: Refill Request Start: 08-25-2023 [...] Refill Grant allen MD Work Phone: Family [facility] Comment on above: Refill Request Start: 06-09-2023 End: 06-09-2023 Emergency department patient visit Dr. Grant Krause Work Phone: [facility]Emergency Department Work Phone: Start: 05-28-2023 Refill Grant allen MD Work Phone: Internal [facility] Comment on above: Refill Request Start: 05-14-2023 End: 05-14-[address] Grant Krause Work Phone: [facility] Work Phone: Start: 05-10-2023 Refill Grant allen MD Work Phone: Internal [facility] Comment on above: Refill Request Start: 04-26-2023 End: 04-26-2023 Patient encounter procedure Nilda CA-C Work Phone: Orthopaedics Comment on above: Primary osteoarthrit is of left knee (Primary Dx) Start: 04-26-2023 End: 04-26-2023 Subsequent hospital visit by physician Nakul [facility] [place] Work Phone: Radiology Comment on [...] Grant connell MD Work Phone: [facility] [place] Comment on above: Results Start: 04-02-2023 End: 04-02-2023 Patient encounter procedure Grant Krause MD Work Phone: Internal Medicine [place] Comment on above: Type 2 diabetes octaviano itus with stage 3a chronic kidney disease, without long-term current use of insulin (HCC) (Primary Dx); Essential hypertension; Coronary artery disease involving match-e[place]be[place]she[place]ish band coronary artery of match[place] band heart without angina pectoris; Mixed hyperlipidemia; Obesity, Class II, BMI 35-39.9; Bunion Start: 03-23-2023 Refill Grant allen MD Work Phone: Internal Medicine [place] Comment on above: Refill Request Start: 01-19-2023 Refill Grant allen MD Work Phone: [facility] [place] Comment on above: Refill Request Start: 2023 End: 2023 Patient encounter procedure Nilda Kim PA-C Work Phone: Orthopaedics Comment on above: Primary osteoarthrit is of left knee (Primary Dx) Start: 12-28-2022 Telephone encounter Grant connell MD Work Phone: [facility] [place] Comment on above: Medication Problem Start: 12-18-2022 Refill Grant allen MD Work Phone: [facility] [place] Comment on above: Refill Request Start: 12-16-2022 End: 12-16-2022 Patient encounter procedure Liat Emery APRN.SUPPORT ANALYST Work Phone: Internal Medicine [place] Comment on above: Medicare annual well ness visit, initial (Primary Dx); Oral dyskinesia Start: 11-24-2022 Refill Gratn allen MD Work Phone: Internal Medicine [place] Comment on above: Refill Request Start: 11-16-2022 ambulatory [facility] [place] Comment on above: Population Health Na vigation Outreach ([employer] care gaps) Start: 11-13-2022 End: 11-13-[address] Grant Krause Work Phone: [facility] Work Phone: Start: 11-13-2022 End: 11-13-[address] Grant Krause Work Phone: [facility] Start: 11-13-2022 End: 11-13-[address] Grant Krause Work Phone: [facility] Start: 11-02-2022 Refill Grant allen MD Work Phone: [facility] Comment on above: Refill Request Start: 10-30-2022 Non-patient / Non-visit Dr. Radha Krause Work Phone: [facility] Start: 09-30-2022 Refill Grant allen MD Work Phone: Internal [facility] Start: 09-25-2022 Refill Grant allen MD Work Phone: Internal [facility] Comment on above: Refill Request; Refi ll Request Start: 09-23-2022 End: 09-23-2022 Subsequent hospital visit by physician Madelin Blanc MD Work Phone: Ambulatory Surgery Comment on above: History of colonic p olyps [Z86.010] Start: 09-16-2022 Refill Grant allen MD Work Phone: Internal [facility] Comment on above: Refill Request Start: 09-01-2022 Refill Grant allen MD Work Phone: [facility] [place] Comment on above: Refill Request Start: 08-14-2022 Telephone encounter Madelin Zapata MD Work Phone: General Surgery Comment on above: Patient Question (Ca rdiac clearance for colonoscopy) Start: 08-03-2022 Telephone encounter Madelin Zapata MD Work Phone: General Surgery Comment on above: 09/23/2022 cololn as c Start: 07-24-2022 Refill Liat Older GAME PRESERVE MANAGER .SUPPORT ANALYST Work Phone: Internal [facility] Comment on above: Refill Request Start: 07-10-2022 Refill Grant allen MD Work Phone: Internal [facility] Comment on above: Refill Request Start: 06-29-2022 Refill Grant allen MD Work Phone: Internal [facility] Comment on above: Refill Request Start: 05-28-2022 End: 05-28-[address] Grant Krause Work Phone: [facility] Work Phone: Start: 05-28-2022 End: 05-28-[address] Grant Krause Work Phone: [facility] Start: 05-26-2022 End: 05-26-2022 Admission to same day surgery center Dr. Grant Krause Work Phone: [facility]-[employer] Carp[employer] Molder/Special Procedures Start: 05-25-2022 Non-patient / Non-visit Dr. Radha Krause Work Phone: [facility] Start: 05-11-2022 End: 05-11-2022 Patient encounter procedure Grant Krause MD Work Phone: [facility] Comment on above: Oral dyskinesia (Danita peter Dx); Coronary artery disease involving match-[place]be[place]ish band coronary artery of match-e-be[place] band heart without angina pectoris; Stented coronary artery; Primary osteoarthritis of left knee Start: 05-01-2022 ambulatory Grant allen MD Work Phone: Internal [facility] Comment on above: Tremor Start: 04-27-2022 Telephone encounter Grant connell MD Work Phone: Internal [facility] Comment on above: Covid19 Concern (shayy t + ) Start: 04-25-2022 End: 04-26-2022 Emergency department patient visit Dr. Grant Krause Work Phone: [facility]-Emergency Department Start: 04-24-2022 Refill Grant allen MD Work Phone: [facility] Comment on above: Refill Request Start: 04-22-2022 End: 04-22-[address] Grant Krause Work Phone: [facility] Start: 04-14-2022 Non-patient / Non-visit Dr. Radha Krause Work Phone: [facility] Start: 04-14-2022 End: 04-14-[address] Grant Krause Work Phone: [facility]-Cardiovascula r Services Start: 04-06-2022 Refill Grant allen MD Work Phone: [facility] Comment on above: Refill Request Start: 04-01-2022 Refill Grant allen MD Work Phone: [facility] Comment on above: Refill Request Start: 03-16-2022 End: 03-16-[address] Grant Krause Work Phone: [facility] Start: 02-27-2022 Refill Grant allen MD Work Phone: [facility] Comment on above: Refill Request Start: 02-17-2022 Refill Grant allen MD Work Phone: [facility] Comment on above: Refill Request Start: 02-12-2022 End: 02-12-2022 Subsequent hospital visit by physician Xr [facility] Work Phone: Radiology Comment on above: Canceled (CC cx: Err or or Template Change) Bronchitis with bron chospasm [J20.9] Start: 02-09-2022 Refill Grant allen MD Work Phone: Internal [facility] Comment on above: Refill Request Start: 02-06-2022 Refill Liat Emery APRN, .CNP Work Phone: [facility] Comment on above: Refill Request Start: 01-29-2022 End: 01-29-2022 Emergency department patient visit Dr. Grant Krause Work Phone: [facility]-Emergency Department Start: 01-26-2022 End: 01-26-2022 Patient encounter procedure Nilda Kim PA-C Work Phone: Orthopaedics Comment on above: Chronic pain of left knee (Primary Dx); Primary osteoarthritis of left knee Start: 01-12-2022 Refill Grant allen MD Work Phone: Internal [facility] Comment on above: Refill Request Start: 12-29-2021 Refill Grant allen MD Work Phone: [facility] Comment on above: Refill Request Start: 12-24-2021 ambulatory Wendy Narvaez [facility] [place] Comment on above: Population Health Na vigation Outreach ([employer] Care Gaps) Start: 12-08-2021 End: 12-08-[address] Grant Krause Work Phone: [facility] Start: 12-04-2021 Non-patient / Non-visit Dr. Radha Krause Work Phone: [facility] Start: 11-28-2021 End: 11-28-2021 Subsequent hospital visit by physician Xr [facility] Work Phone: Radiology Comment on above: Chronic pain of left knee [M25.562, G89.29] Procedures Date Procedure Procedure Detail Performing Clinician Start: 04-23-2025 Arthrocentesis aspir &/inj major jt/bursa w/o us Nilda Kim PA-C Work Phone: Start: 04-10-2025 Adult depression scr eening sobeida Smith APRN.SUPPORT ANALYST Work Phone: Start: 01-15-2025 Arthrocentesis aspir &/inj [...] Wendy Narvaez MA Start: 10-30-2016 End: 10-30-2016 CAUST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 Rosana Grace PA-C Work Phone: Start: 10-30-2016 End: 10-30-2016 Follow Up Appt 6 months Rosana bone PA-C Work Phone: Viral antigen assay Dr. Mary Krause Work Phone: Plan of Treatment Date Care Activity Detail Author Start: 08-25-2028 Screening for malign ant neoplasm of colon [facility] Start: 09-23-2027 Colonoscopy COLONOSCOPY [facility] Start: 09-23-2027 COLORECTAL CANCER SCREENING COLORECTAL CANCER SCREENING [facility] Start: 04-10-2026 Annual PCP Team Field Aide saumya Disease Visit Annual PCP Team Chronic Disease Visit [facility] Start: 04-10-2026 Anxiety Screening Anxiety Screening [facility] Start: 04-10-2026 Creatinine measurement Serum Creatin ine [facility] Start: 04-10-2026 Depression Screening Depression Scre ening [facility] Start: 04-10-2026 Urine microalbumin profile DTaP,Tdap,Td Vaccine (2 - Td or Tdap) [facility] Comment on above: Postponed from 07/28 (Declined at this time) Start: 01-03-2026 PROSTATE CANCER SCREENING DISCUSSION PROSTATE CANCER SCREENING DISCUSSION [facility] Start: 12-26-2025 Glaucoma screening Dilated Retinal E xam [facility] Start: 12-04-2025 BP Controlled (<130/80) BP Controlle d (<130/80) [facility] Start: 11-28-2025 Diabetic foot examination Diabetic Foot Exam [facility] Start: 11-02-2025 Annual PCP Team Field Aide saumya Disease Visit Annual PCP Team Chronic Disease Visit [facility] Start: 11-02-2025 BP Controlled (<130/80) BP Controlle d (<130/80) [facility] Start: 10-11-2025 End: 10-11-2025 Patient encounter procedure 10/11/2025 3:00 PM EST Office Visit Internal Medicine [place] [address] [place] [address] Grant Krause MD [address] [place] [address] follow up 6 months Internal Medicine [place] Comment on above: follow up 6 months Start: 10-11-2025 Hemoglobin A1c measurement HbA1C [facility] Start: 10-09-2025 Annual PCP Team Cynthia saumya Disease Visit Annual PCP Team Chronic Disease Visit [facility] Start: 10-09-2025 BP Controlled (<130/80) BP Controlle d (<130/80) [facility] Start: 10-09-2025 Creatinine measurement Serum Creatin ine [facility] Start: 10-09-2025 Hepatitis B screening Urine Al bumin:Creatinine Ratio [facility] Start: 10-09-2025 Hepatitis B surface antibody level LDL Cholesterol [facility] Start: 10-01-2025 End: 10-01-2025 Patient encounter procedure 10/01/2025 1:00 PM EST Office Visit Podiatry [address] [place], [place] [address] Margarito Joseph [address] [address] 4 month follow up nail care Podiatry Comment on above: 4 month follow up na il care Start: 07-30-2025 End: 07-30-2025 Patient encounter procedure 07/30/2025 11:45 AM EST Office Visit Orthopaedics [address] [place] [address] Nilda Kim PA-C [address] [place] [address] L knee injection 91 day follow up Orthopaedics Comment on above: L knee injection 91 day follow up Start: 07-21-2025 BP Controlled (<130/80) BP Controlle d (<130/80) [facility] Start: 07-19-2025 Annual PCP Team Field Aide saumya Disease Visit Annual PCP Team Chronic Disease Visit [facility] Start: 07-19-2025 BP Controlled (<130/80) BP Controlle d (<130/80) [facility] Start: 07-05-2025 End: 07-05-2025 Patient encounter procedure 07/05/2025 2:30 PM EDT Office Visit Neurology [address] [place] [address] Tito Evans APRN.SUPPORT ANALYST [address] [place] [address] follow up after sleep test Neurology Comment on above: follow up after slee p test Start: 06-21-2025 End: 06-21-2025 Patient encounter procedure 06/21/2025 3:30 PM EDT Office Visit Geriatrics [address] [place], [place] [id number] Terri Aguirre MD [address] [place], [place] [id number] MRI Follow up Geriatrics Comment on above: MRI Follow up Start: 06-16-2025 Annual PCP Team Field Aide saumya Disease Visit Annual PCP Team Chronic Disease Visit [facility] Start: 06-16-2025 Complete blood count Hemoglobin/Lonnie tocrit [facility] Start: 06-16-2025 Covid-19 Vaccine ( season) Covid-19 Vaccine () [facility] Comment on above: Postponed from 05/28 (Declined at this time) Start: 06-16-2025 Covid-19 Vaccine () Covid-19 Vaccine () [facility] Comment on above: Postponed from 05/28 (Declined at this time) Start: 06-16-2025 Creatinine measurement Serum Creatin ine [facility] Start: 06-08-2025 End: 06-08-2025 Patient encounter procedure 06/08/2025 2:30 PM EDT Appointment RADIO [facility] [address] [place] [address] Cognitive impairment, mild, so stated [G31.84] RADIO MRI [facility] Comment on above: Cognitive impairment , mild, so stated [G31.84] Start: 06-01-2025 End: 06-01-2025 Patient encounter procedure 06/01/2025 2:20 PM EDT Office Visit Podiatry [address] [place] [address] [facility]arito Joseph [address] [place], [place] [id number] f/u Podiatry Comment on above: f/u Start: 05-28-2025 Influenza vaccination Influenza Vacc ine (#1) [facility] Start: 05-10-2025 End: 08-09-2025 Cobalamin (Vitamin B12) [Mass/volume] in Serum or Plasma [facility] Comment on above: Expected: 05/10/2025 , Expires: 08/09/2025 Start: 05-10-2025 End: 08-09-2025 Thyrotropin [Units/volume] in Serum or Plasma [facility] Comment on above: Expected: 05/10/2025 , Expires: 08/09/2025 Start: 05-10-2025 End: 05-10-2025 Patient encounter procedure 05/10/2025 1:30 PM EDT Office Visit Geriatrics [address] [place] [address] Terri Aguirre MD [address] [place] [address] Cognitive deficits [R41.89] Geriatrics Comment on above: Cognitive deficits [ R41.89] Start: 04-23-2025 End: 04-23-2025 Patient encounter procedure 04/23/2025 2:30 PM EDT Office Visit Orthopaedics [address] [place] [address] Nilda Kim PA-C [address] [place] [address] L knee 91 day follow up injection Orthopaedics Comment on above: L knee 91 day follow up injection Start: 04-10-2025 End: 07-10-2025 Hemoglobin A1c in Blood [facility] Work Phone: Comment on above: Expected: 04/10/2025 , Expires: 07/10/2025 Start: 04-10-2025 End: 04-10-2025 Patient encounter procedure 04/10/2025 1:40 PM EDT Office Visit Internal Medicine [place] [address] [place] [address] Liat Smith, GAME PRESERVE MANAGER.SUPPORT ANALYST [address] [place] [address] rescheduled for 02-06 Internal Medicine [place] Comment on above: rescheduled for 01-25 3 Start: 04-08-2025 Hemoglobin A1c measurement HbA1C [facility] Start: 04-06-2025 End: 04-06-2025 Patient encounter procedure Podiatry Comment on above: 4 month follow up na sly care Start: 03-23-2025 Diabetic foot examination Diabetic Foot Exam [facility] Start: 02-21-2025 Annual PCP Team Field Aide saumya Disease Visit Annual PCP Team Chronic Disease Visit [facility] Start: 02-21-2025 BP Controlled (<130/80) BP Controlle d (<130/80) [facility] Start: 02-15-2025 End: 02-15-2025 Patient encounter procedure 02/15/2025 2:30 PM EDT Office Visit Neurology [address] [facility] [address] Tito Evans APRN.SUPPORT ANALYST [address] [place] [address] 2 month follow up Neurology Comment on above: 2 month follow up Start: 02-06-2025 End: 02-06-2025 Patient encounter procedure 02/06/2025 2:20 PM EDT Office Visit Internal Medicine [place] [address] [facility] [place], [place] [id number] Liat Smith APRN.SUPPORT ANALYST [address] [facility] [place] [address] Annual Medicare Wellness w/4 month follow-up [facility] [place] Comment on above: Annual Medicare Well ness w/4 month follow-up Start: 02-06-2025 Annual PCP Team Field Aide saumya Disease Visit Annual PCP Team Chronic Disease Visit [facility] Start: 02-06-2025 Anxiety Screening Anxiety Screening [facility] Start: 02-06-2025 BP Controlled (<130/80) BP Controlle d (<130/80) [facility] Start: 02-06-2025 Covid-19 Vaccine () Covid-19 Vaccine () [facility] Comment on above: Postponed from 05/28 (Declined at this time) Start: 02-06-2025 Creatinine measurement Serum Creatin ine [facility] Start: 02-06-2025 Depression Screening Depression Scre ening [facility] Start: 02-06-2025 Urine microalbumin profile DTaP,Tdap,Td Vaccine (2 - Td or Tdap) [facility] Comment on above: Postponed from 07/28 (Declined at this time) Start: 01-15-2025 End: 01-15-2025 Patient encounter procedure 01/15/2025 1:30 PM EDT Office Visit Orthopaedics [address] [place], [place] [id number] Nilda Kim PA-C [address] [place] [address] L knee 91 day follow up injection Orthopaedics Comment on above: L knee 91 day follow up injection Start: 12-14-2024 Hemoglobin A1c measurement HbA1C [facility] Start: 12-04-2024 End: 12-04-2024 Patient encounter procedure Neurology Comment on above: consult for [facility] [employer] consult fo r [facility] Start: 11-28-2024 End: 11-28-2024 Patient encounter procedure 11/28/2024 1:45 PM EST Office Visit Podiatry [address] [place] [address] Margarito Joseph [address] [address] 3 month follow up nail care Podiatry Comment on above: 3 month follow up na il care Start: 11-09-2024 End: 11-09-2024 Patient encounter procedure 11/09/2024 1:15 PM EST Office Visit Podiatry [address] [place] [address] Margarito Joseph [address] [address] 3 month follow up nail care Podiatry Comment on above: 3 month follow up na il care Start: 11-02-2024 End: 11-02-2024 Patient encounter procedure 11/02/2024 2:00 PM EST Office Visit Internal Medicine [facility] [address] [place] [address] Grant Krause MD [address] [place], [place] [id number] discuss CPAP issues [facility] Comment on above: discuss CPAP issues Start: 11-01-2024 End: 11-01-2024 Patient encounter procedure 11/01/2024 2:00 PM EST Office Visit [facility] [address] [facility] [place] [address] Grant Krause MD [address] [facility] [place] [place] [address] discuss CPAP issues Internal Medicine [place] Comment on above: discuss CPAP issues Start: 10-19-2024 Glaucoma screening Dilated Retinal E xam [facility] Start: 10-09-2024 End: 10-09-2024 Patient encounter procedure Internal Medicine [facility] Comment on above: follow up L knee 91 day follow up injection Start: 10-08-2024 Annual PCP Team Field Aide saumya Disease Visit Annual PCP Team Chronic Disease Visit [facility] Start: 10-08-2024 BP Controlled (<130/80) BP Controlle d (<130/80) [facility] Start: 10-08-2024 Creatinine measurement Serum Creatin ine [facility] Start: 10-08-2024 Hepatitis B screening Urine Al bumin:Creatinine Ratio [facility] Start: 10-08-2024 Hepatitis B surface antibody level LDL Cholesterol [facility] Start: 10-06-2024 End: 10-06-2024 Patient encounter procedure Podiatry Comment on above: 3 month follow up na il care Start: 09-28-2024 End: 12-28-2024 Basic metabolic 2000 panel - Serum or Plasma BASIC METABOLIC PANEL Lab Routine Type 2 diabetes mellitus with stage 3a chronic kidney disease, without long-term current use of insulin (HCC) Expected: 09/28/2024, Expires: 12/28/2024 [facility] Work Phone: Comment on above: Expected: 09/28/2024 , Expires: 12/28/2024 Start: 09-28-2024 End: 12-28-2024 Hemoglobin A1c in Blood HEMOGLOBIN A1C Lab Routine Type 2 diabetes mellitus with stage 3a chronic kidney disease, without long-term current use of insulin (HCC) Expected: 09/28/2024, Expires: 12/28/2024 [facility] Comment on above: Expected: 09/28/2024 , Expires: 12/28/2024 Start: 09-28-2024 End: 12-28-2024 Lipid 1996 panel - Serum or Plasma LIPID PANEL BASIC Lab Routine Mixed hyperlipidemia Expected: 09/28/2024, Expires: 12/28/2024 [facility] Comment on above: Expected: 09/28/2024 , Expires: 12/28/2024 Start: 09-28-2024 End: 12-28-2024 Microalbumin/Creatinine [Mass Ratio] in Urine ALBUMIN/CREATININE RATIO, URINE Lab Routine Type 2 diabetes mellitus with stage 3a chronic kidney disease, without long-term current use of insulin (HCC) Expected: 09/28/2024, Expires: 12/28/2024 [facility] Comment on above: Expected: 09/28/2024 , Expires: 12/28/2024 Start: 09-27-2024 Advance Directive Discussion Advance Directive Discussion [facility] Start: 09-27-2024 Medicare Advantage Annual Wellness Visit Medicare Advantage Annual Wellness Visit [facility] Start: 09-11-2024 End: 09-11-2024 Patient encounter procedure 09/11/2024 2:30 PM EST Office Visit Orthopaedics [address] [place], [place] [id number] Nilda Kim PA-C [address] [place] [address] L knee 91 day follow up injection Orthopaedics Comment on above: L knee 91 day follow up injection Start: 08-25-2024 Colonoscopy Colonoscopy [facility] Start: 08-25-2024 Colorectal Cancer Screening Colorectal Cancer Screening [facility] Start: 06-23-2024 End: 06-23-2024 Patient encounter procedure 06/23/2024 3:20 PM EDT Office Visit Podiatry [address] [place] [address] Margarito Joseph [address] [place] [place] [address] 3 month follow up nail care Podiatry Comment on above: 3 month follow up na il care Start: 06-16-2024 End: 09-15-2024 Basic metabolic 2000 panel - Serum or Plasma [facility] Comment on above: Expected: 06/16/2024 , Expires: 09/15/2024 Start: 06-16-2024 End: 09-15-2024 CBC panel - Blood by Automated count [facility] Work Phone: Comment on above: Expected: 06/16/2024 , Expires: 09/15/2024 Start: 06-16-2024 End: 09-15-2024 Hemoglobin A1c in Blood [facility] Comment on above: Expected: 06/16/2024 , Expires: 09/15/2024 Start: 06-16-2024 End: 06-16-2024 Patient encounter procedure Internal Medicine [facility] Comment on above: 4 month follow up Start: 06-05-2024 End: 06-05-2024 Patient encounter procedure 06/05/2024 2:00 PM EDT Office Visit Orthopaedics [address] [place] [place] [address] Nilda Kim PA-C [address] [place] [address] 91 days injection L knee Orthopaedics Comment on above: 91 days injection L knee Start: 05-28-2024 Covid-19 Vaccine ( season) Covid-19 Vaccine ( season) [facility] Start: 05-28-2024 Influenza vaccination Influenza Vacc ine (#1) [facility] Start: 04-07-2024 Hemoglobin A1c measurement HbA1C [facility] Start: 04-02-2024 3 comp foot exam completed DIABETIC FOOT EXAM [facility] Start: 04-02-2024 ANNUAL PCP TEAM DISPATCHER CHIEF OIL SAUMYA DISEASE VISIT ANNUAL PCP TEAM CHRONIC DISEASE VISIT [facility] Start: 04-02-2024 BP CONTROLLED (<130/80) BP CONTROLLE D (<130/80) [facility] Start: 04-02-2024 Complete blood count Hemoglobin/Lonnie tocrit [facility] Start: 04-02-2024 Diabetic foot examination Diabetic Foot Exam [facility] Start: 04-02-2024 HEMOGLOBIN/HEMATOCRIT HEMOGLOBIN/HEM ATOCRIT [facility] Start: 04-02-2024 Hepatitis B surface antibody level LDL CHOLESTEROL [facility] Start: 04-02-2024 SERUM CREATININE SERUM CREATININE Cl [facility] Start: 03-24-2024 End: 03-24-2024 Patient encounter procedure 03/24/2024 1:40 PM EDT Office Visit Podiatry [address] [place] [address] Margarito Joseph [address] [place] [address] RESCHEDULED FROM 03/03 4 month follow up nail care Podiatry Comment on above: RESCHEDULED FROM 03/03 4 month follow up nail care Start: 03-23-2024 End: 03-23-2024 Patient encounter procedure 03/23/2024 2:00 PM EDT Office Visit Podiatry [address] [place] [address] Margarito Joseph [address] [place] [address] RESCHEDULED FROM 03/03 4 month follow up nail care Podiatry Comment on above: RESCHEDULED FROM 03/03 4 month follow up nail care Start: 02-22-2024 End: 02-22-2024 Patient encounter procedure 02/22/2024 1:00 PM EDT Office Visit Internal Medicine [place] [address] [facility] [place] [address] Liat Smith, GAME PRESERVE MANAGER.SUPPORT ANALYST [address] [place] [address] Follow up for multi medication [facility] Comment on above: Follow up for multi medication Start: 02-14-2024 End: 02-14-2024 Patient encounter procedure 02/14/2024 1:30 PM EDT Office Visit Orthopaedics [address] [place] [address] Nilda Kim PA-C [address] [place] [address] 91 days injection L knee Orthopaedics Comment on above: 91 days injection L knee Start: 02-07-2024 End: 05-08-2024 Basic metabolic 2000 panel - Serum or Plasma [facility] Work Phone: Comment on above: Expected: 02/07/2024 , Expires: 05/08/2024 Start: 12-17-2023 ANNUAL PCP TEAM DISPATCHER CHIEF OIL SAUMYA DISEASE VISIT ANNUAL PCP TEAM CHRONIC DISEASE VISIT [facility] Start: 12-17-2023 BP CONTROLLED (<130/80) BP CONTROLLE D (<130/80) [facility] Start: 12-17-2023 Urine microalbumin profile [facility] Comment on above: Postponed from 07/28 (Declined at this time) Start: 10-03-2023 Hemoglobin A1c/Hemoglobin.total in Blood HBA1C [facility] Start: 09-27-2023 Advance Directive Discussion Advance Directive Discussion [facility] Start: 09-27-2023 Behavioral Health Screening Behavioral Health Screening [facility] Start: 09-27-2023 Depression Assessment Depression Ass essment [facility] Start: 09-25-2023 ANNUAL PCP TEAM DISPATCHER CHIEF OIL SAUMYA DISEASE VISIT ANNUAL PCP TEAM CHRONIC DISEASE VISIT [facility] Start: 09-23-2023 Colonoscopy COLONOSCOPY [facility] Start: 09-23-2023 COLORECTAL CANCER SCREENING COLORECTAL CANCER SCREENING [facility] Start: 09-22-2023 Hepatitis B screening URINE AL BUMIN:CREATININE RATIO [facility] Start: 09-22-2023 SERUM CREATININE SERUM CREATININE Cl [facility] Start: 09-14-2023 Hepatitis C antibody , confirmatory test DILATED RETINAL EXAM [facility] Start: 08-05-2023 BP CONTROLLED (<130/80) BP CONTROLLE D (<130/80) [facility] Start: 06-09-2023 [facility] Start: 05-28-2023 Covid-19 Vaccine ( season) Covid-19 Vaccine ( season) [facility] Start: 05-28-2023 Influenza vaccination [facility] Start: 05-11-2023 ANNUAL PCP TEAM DISPATCHER CHIEF OIL SAUMYA DISEASE VISIT ANNUAL PCP TEAM CHRONIC DISEASE VISIT [facility] Start: 04-02-2023 End: 06-02-2023 Comprehensive metabolic 2000 panel - Serum or Plasma [facility] Work Phone: Comment on above: Expected: 04/02/2023 , Expires: 06/02/2023 Start: 04-02-2023 End: 06-02-2023 Lipid 1996 panel - Serum or Plasma [facility] Work Phone: Comment on above: Expected: 04/02/2023 , Expires: 06/02/2023 Start: 03-26-2023 Adult depression screening assessment DEPRESSION SCREENING [facility] Start: 03-26-2023 ANNUAL PCP TEAM DISPATCHER CHIEF OIL SAUMYA DISEASE VISIT ANNUAL PCP TEAM CHRONIC DISEASE VISIT [facility] Start: 03-26-2023 BP CONTROLLED (<130/80) BP CONTROLLE D (<130/80) [facility] Start: 03-23-2023 Hemoglobin A1c/Hemoglobin.total in Blood HBA1C [facility] Start: 02-13-2023 HEMOGLOBIN/HEMATOCRIT HEMOGLOBIN/HEM ATOCRIT [facility] Start: 02-13-2023 Hepatitis B surface antibody level LDL CHOLESTEROL [facility] Start: 02-12-2023 3 comp foot exam completed DIABETIC FOOT EXAM [facility] Start: 02-12-2023 ANNUAL PCP TEAM DISPATCHER CHIEF OIL SAUMYA DISEASE VISIT ANNUAL PCP TEAM CHRONIC DISEASE VISIT [facility] Start: 02-12-2023 BP CONTROLLED (<130/80) BP CONTROLLE D (<130/80) [facility] Start: 01-24-2023 COVID-19 VACCINE (6 - Pfizer series) COVID-19 VACCINE (6 - Pfizer series) [facility] Start: 11-28-2022 BP CONTROLLED (<130/80) BP CONTROLLE D (<130/80) [facility] Start: 10-09-2022 Hepatitis C antibody , confirmatory test DILATED RETINAL EXAM [facility] Start: 09-27-2022 ADVANCE DIRECTIVE DISCUSSION ADVANCE DIRECTIVE DISCUSSION [facility] Start: 09-27-2022 DEPRESSION ASSESSMENT DEPRESSION ASS ESSMENT [facility] Start: 08-16-2022 Hemoglobin A1c/Hemoglobin.total in Blood HBA1C [facility] Start: 07-30-2022 ANNUAL PCP TEAM DISPATCHER CHIEF OIL SAUMYA DISEASE VISIT ANNUAL PCP TEAM CHRONIC DISEASE VISIT [facility] Start: 07-14-2022 COVID-19 VACCINE (5 - Booster for Pfizer series) COVID-19 VACCINE (5 - Booster for Pfizer series) [facility] Start: 06-30-2022 Hepatitis B screening URINE AL BUMIN:CREATININE RATIO [facility] Start: 06-27-2022 Hepatitis B surface antibody level LDL CHOLESTEROL [facility] Start: 06-27-2022 Urine microalbumin profile DTAP,TDAP,TD (2 - Td or Tdap) [facility] Comment on above: Postponed from 07/28 (Declined at this time) Start: 05-28-2022 Influenza vaccination INFLUENZA (#1) [facility] Start: 04-25-2022 [facility] Work Phone: Start: 01-03-2022 Adult depression screening assessment DEPRESSION SCREENING [facility] Start: 01-03-2022 BP CONTROLLED (<130/80) BP CONTROLLE D (<130/80) [facility] Start: 12-26-2021 Hemoglobin A1c/Hemoglobin.total in Blood HBA1C [facility] Start: 12-16-2021 Colonoscopy COLONOSCOPY [facility] Start: 12-16-2021 COLORECTAL CANCER SCREENING COLORECTAL CANCER SCREENING [facility] Start: 12-16-2021 COVID-19 VACCINE (4 - Booster for Pfizer series) COVID-19 VACCINE (4 - Booster for Pfizer series) [facility] Start: 11-04-2021 3 comp foot exam completed DIABETIC FOOT EXAM [facility] Start: 09-27-2021 ADVANCE DIRECTIVE DISCUSSION ADVANCE DIRECTIVE DISCUSSION [facility] Start: 09-27-2021 DEPRESSION ASSESSMENT DEPRESSION ASS ESSMENT [facility] Start: 07-28-2017 Urine microalbumin profile [facility] Start: 05-04-2017 End: 05-04-2017 Appointment Appointment [facility] Work Phone: Start: 10-30-2016 End: 10-30-2016 [employer]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 [facility] Work Phone: Start: 10-30-2016 End: 10-30-2016 Follow Up Appt 6 months Follow Up Appt 6 months [facility] Work Phone: Start: 2013 Hepatitis B Vaccine (1 of 3 - Risk 3-dose series) Hepatitis B Vaccine (1 of 3 - Risk 3-dose series) [facility] Start: 2013 RSV Vaccine (1 - 1-d ose 60+ series) RSV Vaccine (1 - 1-dose 60+ series) [facility] Start: 1998 COLOGUARD (FIT-DNA) COLOGUARD (FIT-D NA) [facility] Start: [address] COLONOGRAPHY [facility] Start: 1998 FECAL OCCULT BLOOD FECAL OCCULT BLOO D [facility] Start: 1998 Screening for malign ant neoplasm of colon [facility] Start: 1998 [facility] Start: 1961 PNEUMOCOCCAL: 65+ (1 - PCV) PNEUMOCOCCAL: 65+ (1 - PCV) [facility] Blood chemistry [facility] End: 06-09-2026 MR Brain WO contrast MRI BRAIN W QUANT WO IVCON Radiology Routine Cognitive impairment, mild, so stated 1 Occurrences starting 05/10/2025 until 06/09/2026 [facility] Work Phone: Comment on above: 1 Occurrences starti ng 05/10/2025 until 06/09/2026 End: 06-09-2026 MR Unspecified body region 3D post processing MRI 3D BRAIN QUANT Radiology Routine Cognitive impairment, mild, so stated 1 Occurrences starting 05/10/2025 until 06/09/2026 [facility] Comment on above: 1 Occurrences starti ng 05/10/2025 until 06/09/2026 Patient Education [facility] Work Phone: Patient referral [facility] Work Phone: Radiologic exam ches t 2 views XR CHEST 2V FRONTAL/LAT Radiology Routine Bronchitis with bronchospasm 02/12/2022 4:20 PM EDT [facility] Work Phone: End: 08-05-2023 Screening colonoscopy COLONOSCOPY SCREENING Endoscopy Routine History of colonic polyps 1 Occurrences starting 08/05/2022 until 08/05/2023 [facility] Work Phone: Comment on above: 1 Occurrences starti ng 08/05/2022 until 08/05/2023 End: 08-04-2024 Screening colonoscopy COLONOSCOPY SCREENING Endoscopy Routine History of colonic polyps 1 Occurrences starting 08/04/2023 until 08/04/2024 [facility] Work Phone: Comment on above: 1 Occurrences starti ng 08/04/2023 until 08/04/2024 [facility] End: 05-12-2024 XR KNEE GENERAL 4V AP BOTH/PA BOTH/LAT/MERC LEFT XR KNEE GENERAL 4V AP BOTH/PA BOTH/LAT/MERC LEFT Radiology Routine Left knee pain, unspecified chronicity 1 Occurrences starting 04/13/2023 until 05/12/2024 [facility] Work Phone: Comment on above: 1 Occurrences starti ng 04/13/2023 until 05/12/2024 [facility] Immunizations Immunization Date Immunization Notes Care Provider [facility] 06-16-2024 influenza, high dose seasonal, preservative-free Grant Krause MD Work Phone: [facility] 06-16-2024 influenza virus vacc ine, unspecified formulation Grant Krause MD Work Phone: [facility] 07-08-2023 influenza (HD-IIV4) vaccine, age 65+ yr, high dose, quadrivalent, PF (FLUZONE HIGH-DOSE) Nilda Kim PA-C Work Phone: [facility] Work Phone: 07-08-2023 influenza virus vacc ine, unspecified formulation Grant Krause MD Work Phone: [facility] 09-25-2022 COVID-19 booster vaccine, age 12+ yr, bivalent ([employer]) Grant Krause MD Work Phone: [facility] Work Phone: 07-29-2022 influenza, high-dose , quadrivalent vaccine (FLUZONE HIGH DOSE QUADRIVALENT) Grant Krause MD Work Phone: [facility] Work Phone: 07-29-2022 influenza virus vacc ine, unspecified formulation Grant Krause MD Work Phone: [facility] 06-27-2021 influenza, high-dose , quadrivalent vaccine (FLUZONE HIGH DOSE QUADRIVALENT) Wendy Narvaez MA [facility] 01-27-2021 zoster vaccine recombinant Wendy Narvaez [facility] Work Phone: 12-27-2020 COVID-19 vaccine, ag e 12+ yr (PFIZER-BIONTECH - PURPLE TOP) Wendy Narvaez [facility] Work Phone: 12-06-2020 COVID-19 vaccine, ag e 12+ yr (PFIZER-BIONTECH - PURPLE TOP) Wendy Narvaez MA [facility] Work Phone: 07-20-2020 influenza, high-dose , quadrivalent vaccine (FLUZONE HIGH DOSE QUADRIVALENT) Wendy Narvaez MA [facility] 07-03-2020 zoster vaccine recombinant Wendy Narvaez [facility] Work Phone: 08-16-2019 influenza, high dose seasonal, preservative-free Wendy Narvaez [facility] Work Phone: 08-16-2019 pneumococcal polysaccharide vaccine, 23 valent Wendy Narvaez [facility] Work Phone: 07-21-2019 influenza, high dose seasonal, preservative-free Wendy Narvaez [facility] 07-28-[address] Grant Krause Work Phone: [facility] 07-28-2018 influenza, seasonal, injectable, preservative free Wendy Narvaez [facility] Work Phone: 06-01-2018 influenza, high dose seasonal, preservative-free Wendy Narvaez MA [facility] 06-01-2018 pneumococcal conjuga te vaccine, 13 valent Wendy Narvaez MA [facility] 05-28-2018 pneumococcal conjuga te vaccine, [address] Grant Krause Work Phone: [facility] 06-17-2017 influenza, injectabl e, quadrivalent, contains preservative Wendy Narvaez ALY [facility] Work Phone: 06-27-[address] Grant Krause Work Phone: [facility] 06-27-2016 influenza, seasonal, injectable, preservative free Wendy Narvaez [facility] Work Phone: 06-11-2016 influenza, injectabl e, quadrivalent, contains preservative Wendy Narvaez MA [facility] 08-13-2015 influenza, seasonal, injectable Wendy Narvaez ALY [facility] 06-27-2013 influenza virus vacc ine, unspecified formulation Wendy Maurerer [facility] Work Phone: 08-10-2011 influenza virus vacc ine, unspecified formulation Wendy Maurerer [facility] Work Phone: 07-31-2008 pneumococcal polysaccharide vaccine, 23 valent Wendy Maurerer [facility] Work Phone: 08-11-2007 influenza virus vacc ine, unspecified formulation Wendy Narvaez [facility] Work Phone: 07-28-2007 tetanus toxoid, redu miky diphtheria toxoid, and acellular pertussis vaccine, adsorbed Wendy Narvaez [facility] Work Phone: Payers Date Payer Category Payer Self-pay [id number] 2024 Medicare (Managed Care) LORNA ESCOTO O [id number] 2024 Unknown [employer]UE [employer] S AND BLUE SHIELD [employer]M MEDICARE ADVANTAGE HMO [id number] 2024-Present [phone] [address] [place] [address] HMO [id number] 2024 Medicare [id number] 2020 Medicare HUMANA MEDICARE HUMANA GOLD PLUS [id number] 2020-Present [phone] [address] [address] [place] [address] HMO [id number] 2020 Medicare [id number] 2018 Medicaid MEDICAID [facility] MEDICAID [id number] 2018-Present [phone] [address] [place] [address] Medicaid [id number] 2018 Medicaid [id number] 2017 Medicaid [id number] Medicare [id number] Private Health Insurance [id number] Unknown [id number] Unknown [id number] Unknown [id number] Unknown [id number] Unknown [id number] Unknown [id number] Social History Date Type Detail Facility Start: 03-13-2011 End: 08-05-2022 Tobacco smoking status NHIS Never smoked tobacco [facility] Start: 11-28-2021 End: 02-12-2022 Alcohol intake Current drinker of alcohol (finding) [facility] Start: 06-27-2021 History SDOH Alcohol Comment does not drink alcohol routinely [facility] Start: 1955 Sex Assigned At Not on file [facility] Start: 10-29-2021 End: 08-05-2022 Exposure to SARS-CoV-2 (event) Not sure [facility] Start: 01-29-2022 End: 12-06-2023 Tobacco smoking status MEIS Unknown if ever smoked [facility] Start: 07-20-2015 Heavy [facility] Start: 09-25-2016 Marijuana [facility] Start: 07-26-2013 With Family [facility] Start: 09-25-2016 Non-smoker [facility] Start: 1955 Sex Assigned At Male [facility] Start: 03-26-2022 End: 06-01-2025 Alcohol intake Ex-drinker (finding) [facility] Start: 03-13-2011 End: 08-05-2022 Tobacco use and exposure Smokeless tobacco non-user [facility] Work Phone: Start: 03-24-2023 End: 04-02-2023 History of Social function [facility] Work Phone: Start: 03-24-2023 End: 04-02-2023 Tobacco use panel [facility] Work Phone: Start: 08-28-2012 Adult Depression Screening Assessment 0 [facility] Work Phone: Start: 07-26-2023 Alcohol Comment sober over year [facility] How often to you hav e a drink containing alcohol? Never [facility] Functional Status Date Assessment Result Facility 04-10-2025 Total score [AUDIT-C] 0 04/10/20 25 1:00 PM EDT Alena Mendes MA [facility] 01-04-2014 Are you deaf, or do you have serious difficulty hearing No 01/04/2014 4:32 PM EDT Roseann Cummings Ma No [facility] 01-04-2014 Are you blind, or do you have serious difficulty seeing, even when wearing glasses No 01/04/2014 4:32 PM EDT Roseann Cummings Ma No [facility] 01-04-2014 Do you have serious difficulty walking or climbing stairs No 01/04/2014 4:32 PM EDT Roseann Cummings Ma No [facility] 01-04-2014 Do you have difficul ty dressing or bathing No 01/04/2014 4:32 PM EDT Roseann Cummings Ma No [facility] 01-04-2014 Because of a physica l, mental, or emotional condition, do you have difficulty doing errands alone such as visiting a physician's office or shopping No 01/04/2014 4:32 PM EDT Roseann Cummings Ma No [facility] Mental Status Date Assessment Result Facility 06-09-2023 Cognitive function Level Of Cons ciousness Awake;Alert;Appropriate;Fol lows Commands [facility] Work Phone: 04-25-2022 Cognitive function Level Of Cons ciousness Awake;Alert;Appropriate;Fol lows Commands [facility] Work Phone: 01-29-2022 Cognitive function Level Of Cons ciousness Awake;Alert;Appropriate;Fol lows Commands [facility] Work Phone: 01-04-2014 Because of a physica l, mental, or emotional condition, do you have serious difficulty concentrating, remembering, or making decisions No 01/04/2014 4:32 PM EDT Roseann Cummings Ma No [facility] Clinical Notes 03-27-2012 to 07-30-2025 Margarito Joseph - 06/01/2025 2:25 PM Rupali Bingham RN - 06/01/2025 2:17 PM EDTPatient InstructionsPatient Terri Abarca MD - 05/10/2025 2:33 PM EDTPatient Instructions Note Date & Type Note Facility 07-30-2025 Note HNO ID: [id number] Author: NILDA KIM PA-C Service: ? Author Type: Physician Manager Process Improvement Type: Progress Notes Filed: 07/30/2025 12:03 Note [...] these instructions. Informed Consent Consent Obtained: Verbal [place] Protocol A moment to CARE was completed. [...] assessment and interventions applicable. No implant(s) inserted. [facility] 07-30-2025 Note HNO ID: [id number] Author: ARABELLA COHEN MA Service: ? Author Type: Hydrotreater Operator Type: Progress Notes Filed: 07/30/2025 12:03 Note Text: AMB ROOMING INTAKE FLOWSHEET DATA Pain Pain Level: 4 Pain Location: Knee-Left Description: Sharp, Dull, Aching Duration Amount of Time: (ongoing) Frequency: Intermittent Intervention/Comfort measure: Medication [facility] 07-10-2025 Note HNO ID: [id number] Author: CELSO PICKERING RT(R) Service: ? Author [...] PATIENT PRESENTS WITH AN IMPLANTABLE OR ATTACHED HEALTH PROMOTION SPECIALIST: No RADIOLOGY DEPARTMENT: MR; Exam(s) Completed: Head: Routine Brain. Anesthesia: No. Aromatherapy Administered: No PERIPHERAL IV DATA: Not applicable 3d brain QUANT SIGNED BY: RT Zully(R) July 10, 2025 2:47 PM [facility] 06-27-2025 Note HNO ID: [id number] Author: TERRI AGUIRRE MD Service: ? Author [...] any unintended typographical errors. Recording using ambient Tutto software for draft documentation of the visit was discussed with the patient/authorized chemical sales representative; all questions welcomed and answered. Patient/authorized chemical sales representative agreed to proceed Terri Aguirre MD [1] Social History Tobacco Use Smoking status: Never Smokeless tobacco: Never Vaping Use Vaping status: Never Used Substance Use Topics Alcohol use: Not Currently Comment: sober over year Drug use: Not Currently Types: Marijuana Comment: sober over year [facility] 06-01-2025 Note HNO ID: [id number] Author: MARGARITO JOSEPH, ? Service: ? Author [...] RTC in 3-4 months. Margarito Joseph DPM [facility] 06-01-2025 History of Presen t illness Narrative [...] care. WALT 11/28/24 documented in this encounter [facility] 06-01-2025 Instructions Margarito Joseph - 06/01/2025 [...] (or decreased sensation in your feet) a bottom hoop driver should always cut your toenails. Be Careful [...] Go to your health care provider or bottom hoop driver to treat these conditions. documented in this encounter [facility] 06-01-2025 Note HNO ID: [id number] Author: RUPALI PENDLETON RN Service: ? Author Type: Registered Nurse Type: Progress Notes Filed: 06/01/2025 14:37 Note Text: Patient presents with: Left Foot - Established Patient, Follow Up, Diabetic Foot Care Right Foot - Established Patient, Follow Up, Diabetic Foot Care Patient presents for follow up diabetic foot/nail care. WALT 11/28/[address] [facility] 05-10-2025 Instructions Terri Aguirre MD - 05/10/2025 [...] This will need to be done in [place]. Please arrange transportation if needed. - I [...] surgical procedure and follow-up visits at the [facility]. If you decide to pursue this, please contact Dr. Wright and your insurance provider to discuss coverage and next steps. Follow-Up: - Please complete the lab work today and schedule the MRI in [place]. Once the MRI is completed, we will review the results together at your next visit. - Continue your current medications and lifestyle adjustments as discussed. Let me know if you experience any new or worsening symptoms. documented in this encounter [facility] 05-10-2025 Note HNO ID: [id number] Author: TERRI AGUIRRE MD Service: ? Author Type: Physician Type: Progress Notes Filed: 05/10/2025 16:48 Note Text: [facility] Initial Consult Xavi Cabello [...] as his sister is currently in a prison with a form of dementia. Xavi reports [...] to visit his nephew, who works at [employer], but has had difficulty reaching him. Any [...] the home? No Social History: Primary language: Stateless Marital Status: Single Living situation: with friend Socially engaged? (participates in activities such as clubs, catholic, community center, sports, games, visiting friends/relatives, etc?): YES meets his cousin once in a while. Caregiver [place] and Stress Are your feeling overwhelmed? NO [...] N/a B-ADLs: (I=independent,A=assistance,D=d (more content not included)... [facility] 05-10-2025 History of Presen t illness Narrative [facility] Initial Consult Xavi Cabello [...] as his sister is currently in a prison with a form of dementia. Xavi reports [...] to visit his nephew, who works at [employer], but has had difficulty reaching him. Any [...] the home? No Social History: Primary language: Stateless Marital Status: Single Living situation: with friend Socially engaged? (participates in activities such as clubs, catholic, community center, sports, games, visiting friends/relatives, etc?): YES meets his cousin once in a while. Caregiver [place] and Stress Are your feeling overwhelmed? NO [...] Diagnosis Date Alcohol abuse 03/05/2012 Arthritis Asthma ([facility]) BPH with obstruction/lower urinary tract symptoms 12/11/2015 CAD (coronary artery disease), [place] coronary artery 03/05/2012 COPD (chronic obstructive pulmonary disease) ([facility]) COVID-19 04/24/2022 Hypertension Hypertrophy of prostate without urinary obstruction and other lower urinary tract symptoms (LUTS) 07/28/2007 Left knee pain Marijuana use Nocturnal hypoxia 10/06/2017 Obesity (BMI 30-39.9) Obstructive sleep apnea 10/06/2017 DME [employer] Other and unspecified hyperlipidemia Stented coronary artery 03/08/2012 Tubular adenoma of colon 08/03/2012 Type 2 diabetes mellitus with stage 3a chronic kidney disease, without long-term current use of insulin ([facility]) 09/26/2022 Type II or unspecified type diabetes mellitus without mention of complication, not stated as uncontrolled 09/05/2007 Unstable angina ([facility]) 07/28/2013 PSHx: PAST SURGICAL HISTORY Procedure Laterality [...] 10/07/25, Taking? Yes, Authorizing Provider Liat Smith, GAME PRESERVE MANAGER.SUPPORT ANALYST Medication glipiZIDE (GLUCOTROL XL) 2.5 mg 24 hr tablet, Sig Take 1 tablet by mouth once daily. Taking Diabetes, Start Date 04/10/25, Taking? Yes, Authorizing Provider Liat Smith, GAME PRESERVE MANAGER.SUPPORT ANALYST Medication metFORMIN (GLUCOPHAGE) 500 mg tablet, Sig Take 1 tablet by mouth two times a day with meals. ., Start Date 04/10/25, Taking? Yes, Authorizing Provider Liat Smith, GAME PRESERVE MANAGER.SUPPORT ANALYST Medication sildenafil (VIAGRA) 100 mg tablet, Sig Take 1 tablet by mouth once daily as needed. Take 30-60 minutes before sexual activity., Start Date 04/03/25, Taking? Yes, Authorizing Provider Liat Smith, GAME PRESERVE MANAGER.SUPPORT ANALYST Medication empagliflozin (JARDIANCE) 25 mg tablet, Sig [...] 10/24/24, Taking? Yes, Authorizing Provider Liat Smith, GAME PRESERVE MANAGER.SUPPORT ANALYST Medication albuterol HFA (PROVENTIL HFA, VENTOLIN HFA) 90 mcg/actuation inhaler, Sig Inhale 2 Puffs as instructed every 6 hours as needed for wheezing/shortness of breath., Start Date 10/24/24, Taking? Yes, Authorizing Provider Liat Smith, GAME PRESERVE MANAGER.SUPPORT ANALYST Medication rosuvastatin (CRESTOR) 40 mg tablet, Sig Take 1 tablet by mouth daily at bedtime. For cholesterol., Start Date 10/09/24, Taking? Yes, Authorizing Provider Grant Krause MD Medication nitroglycerin sublingual (NITROQUICK) 0.4 mg SL tablet, Sig Dissolve 1 tablet under the tongue as needed for chest pain., Start Date 09/18/24, Taking? Yes, Authorizing Provider Liat Smith, GAME PRESERVE MANAGER.SUPPORT ANALYST Medication metoprolol tartrate, short acting, (LOPRESSOR) 25 mg tablet, Sig Take 1 tablet by mouth two times a day., Start Date 06/20/24, Taking? Yes, Authorizing Provider Liat Smith, GAME PRESERVE MANAGER.SUPPORT ANALYST Medication Fenofibrate (LOFIBRA) 160 mg tablet, Sig [...] Vision No vision problems reported Follows with dance coach:NO Hearing - Hearing aid : Hearing impairment, [...] impairment; patient to have MRI done in [place]. - Ordered lab work, including Vitamin B12 [...] any unintended typographical errors. Terri Aguirre MD [place] [facility] documented in this encounter [facility] 04-23-2025 Note HNO ID: [id number] Author: NILDA KIM PA-C Service: ? Author Type: Physician Manager Process Improvement Type: Progress Notes Filed: 04/23/2025 14:40 Note [...] these instructions. Informed Consent Consent Obtained: Verbal Hamilton Protocol A moment to CARE was completed. [...] the bedside nurse for hospitalized patients) applicable. [facility] 04-23-2025 History of Presen t illness Narrative [...] these instructions. Informed Consent Consent Obtained: Verbal Hamilton Protocol A moment to CARE was completed. [...] See comment (none) documented in this encounter [facility] 04-23-2025 Note HNO ID: [id number] Author: ARABELLA COHEN MA Service: ? Author Type: Hydrotreater Operator Type: Progress Notes Filed: 04/23/2025 14:40 Note Text: AMB ROOMING INTAKE FLOWSHEET DATA Pain Pain Level: 3 Pain Location: Knee-Left Description: Dull, Aching Duration Amount of Time: (ongoing) Frequency: Intermittent Intervention/Comfort measure: Other: See comment (none) [facility] 04-10-2025 Note HNO ID: [id number] Author: LIAT SMITH APRN.CNP Service: ? Author [...] as Physician (Cardiology) Liat Smith APRN.BOB as Medical Voucher Clerk (Internal Medicine) Dr. Joseph-podiatry [facility] Medical/Family history review Reviewed and updated problem [...] applicable. Potential red (more content not included)... [facility] 04-10-2025 History of Presen t illness Narrative [...] as Physician (Cardiology) Liat Smith APRN.BOB as Medical Voucher Clerk (Internal Medicine) Dr. Joseph-podiatry [facility] Medical/Family history review Reviewed and updated problem [...] Patient agreeable to treatment plan. Liat Smith APRN.SUPPORT ANALYST documented in this encounter [facility] 04-10-2025 Instructions Liat Smith APRN.BOB - [...] review all the medicines you take, even scil-myo-lazhwxj medicines. As you get older, the way [...] certain medical conditions. documented in this encounter [facility] 04-02-2025 Telephone encounter Note Prescription Refill [...] Roberson LPN April 02, 2025 4:38 PM [facility] 04-02-2025 Miscellaneous Notes Prescription Refill Information [...] 2025 4:38 PM documented in this encounter [facility] 03-12-2025 Telephone encounter Note Prescription Refill [...] Jovita Taylor March 12, 2025 9:21 AM [facility] Work Phone: 03-12-2025 Miscellaneous Notes Prescription [...] 2025 9:21 AM documented in this encounter [facility] 02-15-2025 Note HNO ID: [id number] Author: TITO EVANS APRN.SUPPORT ANALYST Service: ? Author Type: Nurse Practitioner Type: Progress Notes Filed: 02/15/2025 17:39 Note Text: [facility] Follow up/ Established [...] for 31-90 day PAP compliance visit Tito Evasn APRN.SUPPORT ANALYST Recording using BotanoCap software for draft documentation of the visit was discussed with the patient/authorized chemical sales representative; all questions welcomed and answered. Patient/authorized chemical sales representative agreed to proceed Here for follow [...] trouble sleeping. - He uses gummies from [employer] to help fall asleep, initially taking one [...] Index (AHI): 15.1 (3%) in [address] [facility] Treatment : PAP therapy DME: [employer] Current [...] SR (RANEXA) 1,00 (more content not included)... [facility] 02-05-2025 Telephone encounter Note Pt states he checked with pharmacy and everything has been taken care of. Olga Rivers RN [facility] 02-05-2025 Miscellaneous Notes Pt states he [...] 2025 10:35 AM documented in this encounter [facility] 02-05-2025 Telephone encounter Note Patient notified, RX sent to [facility] 11/02/2024, he will check with pharmacy. Johanny Palomo LPN [facility] 02-05-2025 Telephone encounter Note Prescription Refill [...] Shefali Arias February 05, 2025 10:35 AM [facility] 01-15-2025 Note HNO ID: [id number] Author: NILDA KIM PA-C Service: ? Author Type: Physician Manager Process Improvement Type: Progress Notes Filed: 01/15/2025 13:43 Note [...] these instructions. Informed Consent Consent Obtained: Verbal Hamilton Protocol A moment to CARE was completed. [...] the bedside nurse for hospitalized patients) applicable. [facility] 01-15-2025 History of Presen t illness Narrative [...] these instructions. Informed Consent Consent Obtained: Verbal Hamilton Protocol A moment to CARE was completed. [...] a repeat injection. documented in this encounter [facility] 01-15-2025 Note HNO ID: [id number] Author: ARABELLA COHEN MA Service: ? Author Type: Hydrotreater Operator Type: Progress Notes Filed: 01/15/2025 13:43 Note Text: AMB ROOMING INTAKE FLOWSHEET DATA Pain Pain Level: 3 Pain Location: Knee-Left Description: Aching Duration Amount of Time: (ongoing) Frequency: Continuous Intervention/Comfort measure: Other: See comment (none) 14 weeks post visit OA left knee with injection given. He got good relief and would like a repeat injection. [facility] 12-04-2024 History of Presen t illness Narrative Images from the original note were not included. [facility] New Patient Evaluation PATIENT NAME: Xavi Cabello DATE OF SERVICE: December 03, 2024 CONSULTING PROVIDER: Grant Krause [address] [facility] [address] REASON FOR CONSULT: Grant Krause sends the [...] says he is picking it up from [facility] today. He says he uses his CPAP [...] cmH2O PRIOR SLEEP STUDIES: 08/30/[address] 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 CAD (coronary artery disease), [place] coronary artery 03/05/2012 COPD (chronic obstructive pulmonary disease) ([facility]) COVID-19 04/24/2022 Hypertension Hypertrophy of prostate without urinary obstruction and other lower urinary tract symptoms (LUTS) 07/28/2007 Left knee pain Marijuana use Nocturnal hypoxia 10/06/2017 Obesity (BMI 30-39.9) Obstructive sleep apnea 10/06/2017 D[facility] [employer] Other and unspecified hyperlipidemia Stented coronary artery 03/08/2012 Tubular adenoma of colon 08/03/2012 Type 2 diabetes mellitus with stage 3a chronic kidney disease, without long-term current use of insulin ([facility]) 09/26/2022 Type II or unspecified type diabetes [...] Disease, Without Long-Term Current Use of Insulin ([facility]) Cad (Coronary Artery Disease), [place] Coronary Artery Stented Coronary Artery Bph With [...] Relation Age of Onset Heart Father of [place] approximately age 40s COPD Mother Diabetes Mother [...] Tito Evans APRN.BOB documented in this encounter [facility] 12-04-2024 Note HNO ID: [id number] Author: TITO EVANS APRN.CNP Service: ? Author Type: Nurse Practitioner Type: Progress Notes Filed: 12/04/2024 15:06 Note Text: [facility] New Patient Evaluation PATIENT NAME: Xavi Cabello DATE OF SERVICE: December 03, 2024 CONSULTING PROVIDER: Grant Krause [address] [place] [id number] REASON FOR CONSULT: Grant Krause sends the [...] says he is picking it up from [facility] today. He says he uses his CPAP [...] cmH2O PRIOR SLEEP STUDIES: 08/30/[address] 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 CAD (coronary artery disease), [place] coronary artery 03/05/2012 COPD (chronic obstructive pulmonary [...] disease, without long-term current use of insulin ([facility]) 09/26/2022 Type II or unspecified type diabetes mellitus without mention of complication, not stated as uncontrolled 09/05/2007 Unstable angina ([facility]) 07/28/2013 PAST SURGICAL HISTORY Procedure Laterality Date [...] Disease, Without Long-Term Current Use of Insulin ([facility]) Cad (Coronary Artery Disease), [place] Coronary Artery Stented Coronary Artery Bph With Obstruction/Lower Urinary Tract Symptoms Marijuana Use Essential Hypertension Male Erectile Dysfunction, Unspecified Tubular Adenoma of Colon [place] On Cpap Nocturnal Hypoxia Bronchitis With Bronchospasm Erectile Dysfunction Tinnitus Oral Dyskinesia Primary Osteoarthritis of Left Knee Obesity, C (more content not included)... [facility] 11-28-2024 Note HNO ID: [id number] Author: MARGARITO JOSEPH, ? Service: ? Author [...] Objective: Patient presents to clinic ambulating in [facility] Vasc: DP and PT pulses are palpable [...] RTC in 3-4 months. Margarito Joseph DPM [facility] 11-28-2024 History of Presen t illness Narrative [...] Lupis Ramirez LPN documented in this encounter [facility] 11-28-2024 Instructions Margarito Joseph - 11/28/2024 [...] (or decreased sensation in your feet) a bottom hoop driver should always cut your toenails. Be Careful [...] Go to your health care provider or bottom hoop driver to treat these conditions. documented in this encounter [facility] 11-28-2024 Note HNO ID: [id number] Author: LUPIS RAMIREZ LPN Service: ? Author Type: LICENSED NURSE Type: Progress Notes Filed: 11/28/2024 14:39 Note Text: AMB ROOMING INTAKE FLOWSHEET DATA Patient presents with: Left Foot - Established Patient, Diabetic Foot Care Right Foot - Established Patient, Diabetic Foot Care Lupis Ramirez LPN [facility] 11-09-2024 Telephone encounter Note Patient is rescheduled for 11/28/2024. Lupis Ramirez LPN [facility] Work Phone: 11-09-2024 Miscellaneous Notes Patient is rescheduled for 11/28/2024. Lupis Ramirez LPN Patient calling with influenza-like symptoms. Would like to reschedule his appointment this afternoon to next week if possible? He prefers afternoons. He is reachable at [phone]. Martha Meza LPN documented in this encounter [facility] 11-09-2024 Telephone encounter Note Patient calling with influenza-like symptoms. Would like to reschedule his appointment this afternoon to next week if possible? He prefers afternoons. He is reachable at [phone]. Martha Meza LPN [facility] 11-02-2024 Note HNO ID: [id number] Author: GRANT KRAUSE MD Service: ? Author Type: Physician Type: Progress Notes Filed: 11/02/2024 15:17 Note Text: This note was created using Engiverriter. Subjective Patient presents with: Equipment Question: New [...] of Insulin ([facility]) Cad (Coronary Artery Disease), [place] Coronary Artery Stented Coronary Artery Bph With [...] Neurological: Mental Status: He is alert. 11/02/2024 [place] People tell me that I snore No [...] [place] on CP (more content not included)... [facility] 11-02-2024 History of Presen t illness Narrative This note was created using Engiverriter. Subjective Patient presents with: Equipment Question: New [...] of Insulin ([facility]) Cad (Coronary Artery Disease), [place] Coronary Artery Stented Coronary Artery Bph With [...] Neurological: Mental Status: He is alert. 11/02/2024 [place] People tell me that I snore No [...] Grant Krause MD documented in this encounter [facility] 11-01-2024 Telephone encounter Note Patient notified and will check with pharmacy and if still needed he will ask pcp at office visit today. Dania Jovel LPN [facility] 11-01-2024 Miscellaneous Notes Patient notified and will check with pharmacy and if still needed he will ask pcp at office visit today. Dania Jovel LPN Attempted to reach pt by phone with out success. Records show valid rx at the pharmacy for Glipizide and Furosemide comes from pt's wood pile driver operator. Try later. Gerda Hsieh LPN Prescription [...] 2024 9:20 AM documented in this encounter [facility] 11-01-2024 Telephone encounter Note Attempted to reach pt by phone with out success. Records show valid rx at the pharmacy for Glipizide and Furosemide comes from pt's wood pile driver operator. Try later. Gerda Hsieh LPN [facility] 11-01-2024 Telephone encounter Note Prescription Refill [...] [facility] November 01, 2024 9:20 AM [facility] 11-01-2024 Evaluation note Diagnosis Type 2 diabetes mellitus with stage 3a chronic kidney disease, without long-term current use of insulin (HCC) documented in this encounter [facility]25 Telephone encounter Note* Telephone Encounter - Amber Valdes OCCA - 10/30/2024 2:01 PM EST In review of chart, patient is scheduled with PCP to discuss CPAP issues on 11/01. MELINDA Sauceda [facility]02-03-2025 Miscellaneous Notes* Telephone Encounter - Amber [...] a noise and after taking it to [facility] advised patient that he may need a new machine. Patient was also told that he would need to transfer his CPAP and supplies over to [facility] due to insurance. Patient did schedule with Tito Evans for 12/04 as he has not been seen by them since 2018 [facility] Tele[facility] encounter Note * Telephone Encounter - Grant Krause MD - 10/27/2024 1:16 PM EST Schedule PCP appointment if CPAP is inoperable. [facility]2025 Telephone encounter Note* Telephone Encounter - [...] in the mean time? Rufina Jerome MA [facility]01-30-2025 Telephone encounter Note* Telephone Encounter - Grant Krause MD - 10/26/2024 5:24 PM EST Schedule sooner appointment with sleep medicine or here if machine is not operational. [facility]28[facility]2025 Telephone encounter Note* Telephone Encounter - Olga Oquendo - 10/24/2024 4:30 PM EST Patient is in need of CPAP supplies and possibly a new machine as his was making a noise and after taking it to [facility] advised patient that he may need a new machine. Patient was also told that he would need to transfer his CPAP and supplies over to [facility] due to insurance. Patient did schedule with Tito Evans for 12/04 as he has not been seen by them since 2018 [facility]01-28-2025 Telephone encounter Note* Telephone Encounter - Olga Oquendo - 10/24/2024 4:23 PM EST Patient returned call and advised medication is at the pharmacy. [facility]01-28-2025 Miscellaneous Notes* Telephone Encounter - Olga [...] Thank you. Lisa Gillespie. [facility] Telephone encounter Note * Telephone Encounter - Amber Valdes OCCA - 10/24/2024 4:14 PM EST TC to patient, no answer. Unable to leave VM. Please try again later. MELINDA Sauceda [facility]01-28-2025 Telephone encounter Note* Telephone Encounter - [...] 02/06/2025 Please advise. Thank you. Lisa Gillespie. [facility]-28-2025 Telephone encounter Note* Telephone Encounter - [...] Symone Taylor October 24, 2024 9:31 AM [facility]28[facility]2025 Miscellaneous Notes* Telephone Encounter - Symone [...] 24, 2024 9:31 AM [facility] History of Present illness Narrative* Nilda Kim PA-C - 10/09/2024 3:35 PM ESTAssociated Order(s): Large Joint Arthro/Inj: L knee joint Post-Procedure Diagnose(s): Primary osteoarthritis of left knee Large Joint Arthro/Inj: L knee joint Informed Consent Consent Obtained: Verbal Hamilton Protocol A moment to CARE was completed. [...] Injections Lupis Ramirez LPN [facility]25 NoteHNO ID: [id number] Author: NILDA KIM PA-C Service: ? Author Type: Physician Manager Process Improvement Type: Progress Notes Filed: 10/09/2024 15:36 Note Text: Large Joint Arthro/Inj: L knee joint Informed Consent Consent Obtained: Verbal Hamilton Protocol A moment to CARE was completed. [...] and Plan of Care Visit completed when applicableMer[facility]2025 NoteHNO ID: [id number] Author: LUPIS RAMIREZ LPN Service: ? Author Type: LICENSED NURSE Type: Progress Notes Filed: 10/09/2024 15:36 Note Text: AMB ROOMING INTAKE FLOWSHEET DATA Patient presents with: Left Knee - Established Patient, Follow Up, Injections [facility] Instructions* Patient Instructions* Grant Krause MD - 10/09/2024 1:36 PM EST Do fasting blood work today. documented in this encounterGreen Cross Hospital01-13-2025 NoteHNO ID: [id number] Author: GRANT KRAUSE MD Service: ? Author Type: Physician Type: Progress Notes Filed: 10/09/2024 13:45 Note Text: This note was created using [employer]. Subjective Xavi Cabello is a 69 year [...] of Insulin (Hcc) Cad (Coronary Artery Disease), [place] Coronary Artery Stented Coronary Artery Benign Prostatic [...] - GABAPENTIN 100 MG CAPSULE Grant Krause [facility]01-13-2025 History of Present illness Narrative* Grant Krause MD - 10/09/2024 1:20 PM EST This note was created using Engiverriter. Subjective Xavi Cabello is a 69 year [...] of Insulin (Hcc) Cad (Coronary Artery Disease), [place] Coronary Artery Stented Coronary Artery Benign Prostatic [...] CAPSULE Grant Krause MD documented in this encounterGreen Cross Hospital01-13-2025 Telephone encounter Note * Telephone Encounter [...] Dickens RN October 09, 2024 9:41 AM [facility]01-13-2025 Miscellaneous Notes* Telephone Encounter - Lynda [...] 09, 2024 9:41 AM documented in this encounterGreen Cross Hospital01-13-2025 Evaluation note* Diagnosis Type 2 diabetes mellitus with stage 3a chronic kidney disease, without long-term current use of insulin (HCC) documented in this encounter [facility]01-10-2025 NoteHNO ID: [id number] Author: MARGARITO JOSEPH, ? Service: ? Author [...] to RTC in 3-4 months. Margarito Joseph, [facility]01-10-2025 NoteHNO ID: [id number] Author: LUPIS RAMIREZ LPN Service: ? Author Type: LICENSED NURSE Type: Progress Notes Filed: 10/06/2024 13:17 Note Text: AMB ROOMING INTAKE FLOWSHEET DATA Patient presents with: Left Foot - Established Patient, Diabetic Foot Care, Swelling Right Foot - Established Patient, Diabetic Foot Care [facility] Telephone encounter Note* Telephone Encounter - [...] Hsieh LPN September 18, 2024 2:58 PM [facility]12-23-2024 Miscellaneous Notes* Telephone Encounter - Gerda [...] 18, 2024 2:58 PM documented in this encounterGreen Cross Hospital11-18-2024 History of Present illness Narrative* Evelin Maldonadoarnold [facility] - 08/14/2024 2:58 PM EST Pt chart reviewed as part of population health initiative focused on statin use in patients with diabetes (DM) or cardiovascular disease (CVD). Xavi Cabello is identified through data from [employer] (insurer) as a potential candidate for statin [...] 03/05/2012 Arthritis Asthma CAD (coronary artery disease), [place] coronary artery 03/05/2012 COPD (chronic obstructive pulmonary [...] disease, without long-term current use of insulin ([facility]) 09/26/2022 Type II or unspecified type diabetes mellitus without mention of complication, not stated as uncontrolled 09/05/2007 Unstable angina ([facility]) 07/28/2013 Cholesterol, Total (mg/dL) Date Value 10/08/2023 150 06/27/2021 208 HDL Cholesterol (mg/dL) Date Value 10/08/2023 40 06/27/2021 50 LDL Cholesterol (mg/dL) Date Value 10/08/2023 80 06/27/2021 130 Triglyceride (mg/dL) Date Value 10/08/2023 149 06/27/2021 138 Outcome of review: Confirmed pickup by pharmacy Teressa Maldonado PharmEvelyn, BCACP Primary Care Clinical Materials Planner documented in this encounterGreen Cross Hospital11-18-2024 NoteHNO ID: [id number] Author: TERESSA MALDONADO RPh Service: ? Author Type: Pharmacist Type: Progress Notes Filed: 08/14/2024 15:00 Note Text: Pt chart reviewed as part of population health initiative focused on statin use in patients with diabetes (DM) or cardiovascular disease (CVD). Xavi Cabello is identified through data from [employer] (insurer) as a potential candidate for statin [...] 03/05/2012 Arthritis Asthma CAD (coronary artery disease), [place] coronary artery 03/05/2012 COPD (chronic obstructive pulmonary disease) ([facility]) COVID-19 04/24/2022 Hypertension Hypertrophy of prostate without urinary obstruction and other lower urinary tract symptoms (LUTS) 07/28/2007 Left knee pain Marijuana use Nocturnal hypoxia 10/06/2017 Obesity (BMI 30-39.9) Obstructive sleep apnea 10/06/2017 [employer] Other and unspecified hyperlipidemia Stented coronary artery 03/08/2012 Tubular adenoma of colon 08/03/2012 Type 2 diabetes mellitus with stage 3a chronic kidney disease, without long-term current use of insulin ([facility]) 09/26/2022 Type II or unspecified type diabetes mellitus without mention of complication, not stated as uncontrolled 09/05/2007 Unstable angina ([facility]) 07/28/2013 Cholesterol, Total (mg/dL) Date Value 10/08/2023 150 06/27/2021 208 HDL Cholesterol (mg/dL) Date Value 10/08/2023 40 06/27/2021 50 LDL Cholesterol (mg/dL) Date Value 10/08/2023 80 06/27/2021 130 Triglyceride (mg/dL) Date Value 10/08/2023 149 06/27/2021 138 Outcome of review: Confirmed pickup by pharmacy Teressa Maldonado PharmD, BCACP Primary Care Clinical Pharmacy SpecialistMercy Health St. [facility]11-18-2024 NotePatient Outreach ([facility]) XAVI CABELLO ([id number]) 1955 M Date Time Provider Department 08/14/24 TERESSA MALDONADO [facility] During your visit today, we recorded the following information about you: Teressa Maldonado [facility] 08/14/2024 3:00 PM Signed Pt chart reviewed as part of population health initiative focused on statin use in patients with diabetes (DM) or cardiovascular disease (CVD). Xavi Cabello is identified through data from [employer] (insurer) as a potential candidate for statin [...] 03/05/2012 Arthritis Asthma CAD (coronary artery disease), [place] coronary artery 03/05/2012 COPD (chronic obstructive pulmonary disease) ([facility]) COVID-19 04/24/2022 Hypertension Hypertrophy of prostate without urinary obstruction and other lower urinary tract symptoms (LUTS) 07/28/2007 Left knee pain Marijuana use Nocturnal hypoxia 10/06/2017 Obesity (BMI 30-39.9) Obstructive sleep apnea 10/06/2017 [employer] Other and unspecified hyperlipidemia Stented coronary artery 03/08/2012 Tubular adenoma of colon 08/03/2012 Type 2 diabetes mellitus with stage 3a chronic kidney disease, without long-term current use of insulin ([facility]) 09/26/2022 Type II or unspecified type diabetes mellitus without mention of complication, not stated as uncontrolled 09/05/2007 Unstable angina ([facility]) 07/28/2013 Cholesterol, Total (mg/dL) Date Value 10/08/2023 150 06/27/2021 208 HDL Cholesterol (mg/dL) Date Value 10/08/2023 40 06/27/2021 50 LDL Cholesterol (mg/dL) Date Value 10/08/2023 80 06/27/2021 130 Triglyceride (mg/dL) Date Value 10/08/2023 149 06/27/2021 138 Outcome of review: Confirmed pickup by pharmacy Teressa Maldonado, PharmD, BCACP Primary Care Clinical Materials Planner Allergies As of Date: 08/14/2024 (No Known Allergies) Date Reviewed: 07/21/2024 Reviewed by: Tad Stratton, GAME PRESERVE MANAGER.SUPPORT ANALYST - Fully Assessed Reason for Visit: Allied [...] Type 2 diabetes mellit (more content not included)...[facility] 08-03-2024 Telephone encounter Note* Telephone Encounter - [...] Reeves RN August 03, 2024 2:33 PM [facility]11-07-2024 Miscellaneous Notes* Telephone Encounter - Marbella [...] 03, 2024 2:33 PM documented in this encounterGreen Cross Hospital10-31-2024 History of Present illness Narrative* Suzanne Krueger - 07/27/2024 1:45 PM EDT Xavi Cabello is identified through a medication adherence outreach initiative based on pharmacy claims data from [employer] (insurer) for Non-insulin DM medication(s). Patient is [...] and status) - Called pt [facility] to [facility] Suzanne Krueger Ct Technologist documented in this encounterGreen Cross Hospital10-25-2024 History of Present illness Narrative* Tad Stratton, GAME PRESERVE MANAGER.SUPPORT ANALYST - 07/21/2024 3:46 PM EDT This note was created using Engiverriter. Subjective Xavi Cabello is a 69 year [...] - BENZONATATE 100 MG CAPSULE Tad Stratton APRN.SUPPORT ANALYST documented in this encounterGreen Cross Hospital10-23-2024 Instructions* Patient Instructions* Grant Krause MD - 07/19/2024 2:34 PM EDT FASTING BLOOD WORK AND URINE TEST IN SEPTEMBER. documented in this encounterGreen Cross Hospital10-23-2024 History of Present illness Narrative* Grant Krause MD - 07/19/2024 2:27 PM EDT This note was created using Engiverriter. Subjective Xavi Cabello is a 69 year [...] of Insulin (Hcc) Cad (Coronary Artery Disease), [place] Coronary Artery Stented Coronary Artery Benign Prostatic [...] risk factor(s). 2. Coronary artery disease involving match-[place]ish [place] coronary artery of match-[place] heart without angina pectoris- ICD9: 414.01, ICD10: [...] BASIC Grant Krause MD documented in this encounterGreen Cross Hospital10-15-2024 [facility] Medical Records Department [address] [place] [id number] Discharge Summary 07/11/24 1330 MR#: [id number] Acct: [id number] Name: XAVI CABELLO Rep #: [id number] : 1955 69 From: Quyen Broussard MD PCP: Dr. Grant Krause MD Status:ADM NHUNG Location: [place] [address] Providers Date of Admission: 07/11/24 Date of [...] 35.3 ABG / Lab (more content not included)...[facility]10-15-2024 [facility] Medical Records Department [address] [place] [address] History Physical Exam 07/11/24 0352 MR#: [id number] Acct: [id number] Name: XAVI CABELLO Rep #: [id number] : 1955 69 From: Chirag Cristina MD [...] for observation and rule out cardiac etiology. [facility] Medical History 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 Chest pain [...] 95 Oxygen Delivery M (more content not included)...[facility] 06-23-2024 History of Present illness Narrative* Margarito [...] Objective: Patient presents to clinic ambulating in [facility] Vasc: DP and PT pulses are palpable [...] Care Lupis Ramirez LPN documented in this encounterGreen Cross Hospital09-27-2024 Instructions* Patient Instructions* Margarito Joseph - [...] (or decreased sensation in your feet) a bottom hoop driver should always cut your toenails. Be Careful [...] Go to your health care provider or bottom hoop driver to treat these conditions. documented in this encounterGreen Cross Hospital09-25-2024 Telephone encounter Note * Telephone Encounter - Hillary Flores LPN - 06/21/2024 4:00 PM EDT Pt notified. [facility]09-25-2024 Miscellaneous Notes* Telephone Encounter - Hillary [...] 21, 2024 2:12 PM documented in this encounterGreen Cross Hospital09-25-2024 Telephone encounter Note * Telephone Encounter - Liat Smith APRN.CNP - 06/21/2024 3:58 PM EDT Please remind patient regarding time line for medication refills Liat Smith APRN.CNP [facility]09-25-2024 Telephone encounter Note* Telephone Encounter - [...] Amanda Dallas June 21, 2024 2:12 PM [facility]09-24-2024 Telephone encounter Note* Telephone Encounter - [...] Gonzales LPN June 20, 2024 1:28 PM [facility]09-24-2024 Miscellaneous Notes* Telephone Encounter - Jovita [...] 20, 2024 1:28 PM documented in this encounterGreen Cross Hospital09-23-2024 Telephone encounter Note * Telephone Encounter - Johanny Palomo LPN - 06/19/2024 7:03 PM EDT Patient notified, verbalized understanding. Johanny Palomo LPN [facility]09-23-2024 Miscellaneous Notes* Telephone Encounter - Johanny [...] kidney disease. Overall okay. documented in this encounterGreen Cross Hospital09-23-2024 Telephone encounter Note * Telephone Encounter - Johanny Palomo LPN - 06/19/2024 4:01 PM EDT TC, Patient is unavailable, will try again later. Johanny Palomo LPN [facility]09-23-2024 Telephone encounter Note* Telephone Encounter - Marino Weiss MA - 06/19/2024 11:21 AM EDT TC to pt. Unable to reach. No option to LM. Will try again at a later time. [facility]09-23-[facility]24 Telephone encounter Note* Telephone Encounter - Mraino Weiss MA - 06/19/2024 11:20 AM EDT ----- Message from Grant Krause MD sent at 06/17/2024 11:00 AM EDT ----- Stable kidney disease. Overall okay. [facility]09-20-20[facility] History of Present illness Narrative* Grant [...] of Insulin (Hcc) Cad (Coronary Artery Disease), [place] Coronary Artery Stented Coronary Artery Benign Prostatic [...] HEMOGLOBIN A1C 5. Coronary artery disease involving match-[place]ish [place] coronary artery of match[place] heart without angina pectoris- ICD9: 414.01, ICD10: I25.10 - Stable. 6. Oral dyskinesia - ICD9: 333.82, ICD10: G24.4 - Controlled. Grant Krause MD documented in this encounterGreen Cross Hospital09-09-2024 History of Present illness Narrative* Nilda Kim PA-C - 06/05/2024 2:33 PM EDTAssociated Order(s): Large Joint Arthro/Inj: L knee joint Post-Procedure Diagnose(s): Primary osteoarthritis of left knee Large Joint Arthro/Inj: L knee joint Informed Consent Consent Obtained: Verbal Hamilton Protocol A moment to CARE was completed. [...] like an injection today. documented in this encounterGreen Cross Hospital08-09-2024 Telephone encounter Note * Telephone Encounter [...] Villatoro RN May 05, 2024 12:39 PM [facility]08-09-2024 Miscellaneous Notes* Telephone Encounter - Rupali [...] 05, 2024 12:39 PM documented in this encounterGreen Cross Hospital08-01-2024 Telephone encounter Note * Telephone Encounter [...] Lesa Ledesma April 27, 2024 10:30 AM [facility]08-01-2024 Miscellaneous Notes* Telephone Encounter - Lesa [...] 27, 2024 10:30 AM documented in this encounterGreen Cross Hospital08-01-2024 Evaluation note* Diagnosis Type 2 diabetes mellitus with stage 3a chronic kidney disease, without long-term current use of insulin (HCC) documented in this encounter [facility]07-23-2024 Telephone encounter Note* Telephone Encounter - Grant Krause MD - 04/18/2024 6:48 PM EDT The following approved medication requests have been transmitted electronically. Requested Prescriptions Signed Prescriptions Disp Refills sildenafil (VIAGRA) 100 mg tablet 5 tablet 2 Sig: Take 1 tablet by mouth once daily as needed. Take 30-60 minutes before sexual activity. Authorizing Provider: GRANT KRAUSE MD [facility]07-23-2024 Miscellaneous Notes* Telephone Encounter - Grant [...] 18, 2024 4:13 PM documented in this encounterGreen Cross Hospital07-23-2024 Telephone encounter Note * Telephone Encounter - Johanny Palomo LPN - 04/18/2024 4:30 PM EDT Spoke to Xavi, he is wanting an increase in strength, he is taking 30 minutes prior to sexual intercourse, states sometimes it does not seem like the medications works. Please review/advise. Johanny Palomo LPN [facility]07-23-2024 Telephone encounter Note* Telephone Encounter - [...] Lesa Ledesma April 18, 2024 4:13 PM [facility]07-17-[facility] Telephone encounter Note* Telephone Encounter - [...] Ivonne Taylor April 12, 2024 4:14 PM [facility]07-17-2024 Miscellaneous Notes* Telephone Encounter - Ivonne [...] 12, 2024 4:14 PM documented in this encounterGreen Cross Hospital07-15-2024 Telephone encounter Note * Telephone Encounter [...] 06/16/2024 Please advise. Thank you. Lisa Gillespie. [facility]07-15-2024 Miscellaneous Notes* Telephone Encounter - Lisa [...] Thank you. Lisa Gillespie. documented in this encounterGreen Cross Hospital06-27-2024 History of Present illness Narrative* Margarito [...] Care Lupis Ramirez LPN documented in this encounterGreen Cross Hospital05-31-2024 Telephone encounter Note * Telephone Encounter [...] 06/16/2024 Please advise. Thank you. Lisa Gillespie. [facility]05-31-2024 Miscellaneous Notes* Telephone Encounter - Lisa [...] Thank you. Lisa Gillespie. documented in this encounterGreen Cross Hospital05-28-2024 History of Present illness Narrative* Liat Smith, GAME PRESERVE MANAGER.SUPPORT ANALYST - 02/22/2024 1:02 PM EDT Patient was [...] appointment Liat Smith APRN.BOB documented in this encounterGreen Cross Hospital05-20-2024 History of Present illness Narrative* Nilda Kim PA-C - 02/14/2024 1:53 PM EDTAssociated Order(s): Large Joint Arthro/Inj: L knee joint Post-Procedure Diagnose(s): Primary osteoarthritis of left knee Large Joint Arthro/Inj: L knee joint Informed Consent Consent Obtained: Verbal Hamilton Protocol A moment to CARE was completed. [...] injection. Lupis Ramirez LPN documented in this encounterGreen Cross Hospital05-15-2024 Telephone encounter Note * Telephone Encounter - Marbella Reeves RN - 02/09/2024 1:44 PM EDT Spoke with patient. Given message from provider's office. Patient verbalizes understanding. Marbella Reeves RN [facility]05-15-2024 Miscellaneous Notes* Telephone Encounter - Marbella Reeves RN - 02/09/2024 1:44 PM EDT Spoke with patient. Given message from provider's office. Patient verbalizes understanding. Marbella Reeves RN * Telephone Encounter - Gerda Hsieh LPN - 02/09/2024 8:26 AM EDT Attempted to reach pt by phone without success. No voicemail. Try later. Gerda Hsieh LPN * Telephone Encounter - Gerda Hsieh LPN - 02/09/2024 8:26 AM EDT ----- Message from Liat Smith APRN.SUPPORT ANALYST sent at 02/09/2024 7:33 AM EDT ----- Please let the patient know kidney function remains decreased but better than previous in November. Stress importance of staying hydrated, limiting salt intake, keeping BP controlled and avoiding NSAID's Liat Smith APRN.SUPPORT ANALYST documented in this encounterGreen Cross Hospital05-15-2024 Telephone encounter Note * Telephone Encounter - Gerda Hiseh LPN - 02/09/2024 8:26 AM EDT Attempted to reach pt by phone without success. No voicemail. Try later. Gerda Hsieh LPN [facility]05-15-2024 Telephone encounter Note* Telephone Encounter - Gerda Hsieh LPN - 02/09/2024 8:26 AM EDT ----- Message from Liat Smith APRN.SUPPORT ANALYST sent at 02/09/2024 7:33 AM EDT ----- Please let the patient know kidney function remains decreased but better than previous in November. Stress importance of staying hydrated, limiting salt intake, keeping BP controlled and avoiding NSAID's Liat Smith APRN.SUPPORT ANALYST [facility]05-13-2024 Instructions* Patient Instructions* Liat Smith APRN.SUPPORT ANALYST - 02/07/2024 1:03 PM EDT Screening schedule [...] review all the medicines you take, even qdae-rbf-ncypjst medicines. As you get older, the way [...] have certain medical conditions. documented in this encounterGreen Cross Hospital05-13-2024 History of Present illness Narrative* Liat [...] PCP - General Dr. Joseph- Podiatry [facility] Outside specialists seen: [facility], [facility] [place] [facility]/Family history review Reviewed and updated problem [...] recheck BASIC METABOLIC PANEL today Liat Smith APRN.SUPPORT ANALYST documented in this encounterGreen Cross Hospital04-19-2024 Miscellaneous Notes* Telephone Encounter - Malia [...] you. Malia Arndt LPN. documented in this encounterGreen Cross Hospital04-17-2024 Miscellaneous Notes* Telephone Encounter - Gerda [...] you. Gerda Hsieh LPN. documented in this encounterGreen Cross Hospital03-12-2024 Miscellaneous Notes* Telephone Encounter - Lynda Dickens RN - 12/07/2023 4:29 PM EDT Pt wanted to let pcp know: he saw [facility] yesterday, and they prescribed him 2 new medications: Furosemide 20 mg 1 tab daily Potassium CL (Klor con) 10 mEq 1 tab daily documented in this encounterGreen Cross Hospital02-29-2024 Miscellaneous Notes* Telephone Encounter - Ivonne [...] Thank you. Ivonne Taylor. documented in this encounterGreen Cross Hospital02-12-2024 History of Present illness Narrative* Nilda Kim PA-C - 11/08/2023 2:17 PM ESTAssociated Order(s): Large Joint Arthro/Inj: L knee joint Post-Procedure Diagnose(s): Primary osteoarthritis of left knee Large Joint Arthro/Inj: L knee joint Informed Consent Consent Obtained: Verbal Hamilton Protocol A moment to CARE was completed. [...] intermittent. Requesting injection today. documented in this encounterGreen Cross Hospital12-01-2023 Miscellaneous Notes* Telephone Encounter - Marino [...] notify patient. Christie Taylor documented in this encounterGreen Cross Hospital11-29-2023 Nurse Note* Destiny Fierro RN - 08/25/2023 9:26 AM EST Arrived in phase II via cart. Left lateral position. Sedated, but responds to verbal stimuli. Colornormal; skin warm and dry. Respirations wnl and unlabored. Abdomen soft and with + bowel sounds in quads X 4. Patient resting comfortably. Family at bedside. Destiny Fierro RN documented in this encounterGreen Cross Hospital11-29-2023 History and physical note * Madelin [...] 03/05/2012 Arthritis Asthma CAD (coronary artery disease), [place] coronary artery 03/05/2012 COPD (chronic obstructive pulmonary disease) ([facility]) COVID-19 04/24/2022 Hypertension Hypertrophy of prostate without urinary obstruction and other lower urinary tract symptoms (LUTS) 07/28/2007 Left knee pain Marijuana use Nocturnal hypoxia 10/06/2017 Obesity (BMI 30-39.9) Obstructive sleep apnea 10/06/2017 [employer] Other and unspecified hyperlipidemia Stented coronary artery 03/08/2012 Tubular adenoma of colon 08/03/2012 Type 2 diabetes mellitus with stage 3a chronic kidney disease, without long-term current use of insulin ([facility]) 09/26/2022 Type II or unspecified type diabetes mellitus without mention of complication, not stated as uncontrolled 09/05/2007 Unstable angina ([facility]) 07/28/2013 PAST SURGICAL HISTORY PAST SURGICAL HISTORY [...] Relation Age of Onset Heart Father of [place] approximately age 40s COPD Mother Diabetes Mother Hypertension Mother Arthritis Brother Diabetes Sister The review of systems data was entered by the nurse and reviewed by ky Nursing Notes: Scarlet Geller LPN 08/04/2023 3:42 [...] (98.6 F), height 170.2 cm (5' 7), opkhvi604.6 kg (221 lb 12.8 oz), SpO2 96 [...] 03/05/2012 Arthritis Asthma CAD (coronary artery disease), match[place] coronary artery 03/05/2012 COPD (chronic obstructive pulmonary disease) ([facility]) COVID-19 04/24/2022 Hypertension Hypertrophy of prostate without urinary obstruction and other lower urinary tract symptoms (LUTS) 07/28/2007 Left knee pain Marijuana use Nocturnal hypoxia 10/06/2017 Obesity (BMI 30-39.9) Obstructive sleep apnea 10/06/2017 [employer] Other and unspecified hyperlipidemia Stented coronary artery 03/08/2012 Tubular adenoma of colon 08/03/2012 Type 2 diabetes mellitus with stage 3a chronic kidney disease, without long-term current use of insulin ([facility]) 09/26/2022 Type II or unspecified type diabetes mellitus without mention of complication, not stated as uncontrolled 09/05/2007 Unstable angina ([facility]) 07/28/2013 PAST SURGICAL HISTORY PAST SURGICAL HISTORY [...] Relation Age of Onset Heart Father of [place] approximately age 40s COPD Mother Diabetes Mother Hypertension Mother Arthritis Brother Diabetes Sister The review of systems data was entered by the nurse and reviewed by ky Nursing Notes: Scarlet Geller LPN 08/04/2023 3:42 [...] (98.6 F), height 170.2 cm (5' 7), rlwaig475.6 kg (221 lb 12.8 oz), SpO2 96 [...] diagnosis) Madelin Blanc MD documented [facility] Telephone encounter Note * Telephone Encounter - Yadira Neal - 08/12/2023 10:57 AM EST Patient notified [facility] Telephone encounter Note* Telephone Encounter - Yadira Neal - 08/12/2023 10:57 AM EST Images from the original note were not included. Madelin Blanc MD You 9 minutes ago (10:48 AM) He can take all his medications as he normally would. [facility]11-16-2023 Miscellaneous Notes* Telephone Encounter - Yadira [...] in [facility] Please advise Yadira Neal Video Game Programmer * Telephone Encounter - Yadira Neal - 08/04/2023 4:27 PM EST 08/25/[address] Blanc patient to be on 2 days clear liquids prior to procedure as well as to take 4 dulcolaxtablets the night before procedure Yadira Neal Video Game Programmer documented in this encounterGreen Cross Hospital11-16-2023 Telephone encounter Note * Telephone Encounter - Yadira Neal - 08/12/2023 8:35 AM EST Patient asking in regards to medication list and what can and cannot be taken prior to procedure on08/25/2023 in [facility] Please advise Yadira Neal Video Game Programmer [facility]11-08-2023 Telephone encounter Note* Telephone Encounter - Yadira Neal - 08/04/2023 4:27 PM EST 08/25/[address] Blanc patient to be on 2 days clear liquids prior to procedure as well as to take 4 dulcolaxtablets the night before procedure Yadira Neal Video Game Programmer [facility]11-08-2023 Instructions* Patient Instructions* Madelin Blanc MD [...] If you do not have a responsible wood pile driver operator (family member or friend) [...] your exam. 2 08/2019 documented in this encounterGreen Cross Hospital11-08-2023 History of Present illness Narrative* Madelin [...] 03/05/2012 Arthritis Asthma CAD (coronary artery disease), match-[place]be[place]ish band coronary artery 03/05/2012 COPD (chronic obstructive pulmonary disease) ([facility]) COVID-19 04/24/2022 Hypertension Hypertrophy of prostate without urinary obstruction and other lower urinary tract symptoms (LUTS) 07/28/2007 Left knee pain Marijuana use Nocturnal hypoxia 10/06/2017 Obesity (BMI 30-39.9) Obstructive sleep apnea 10/06/2017 [facility] Other and unspecified hyperlipidemia Stented coronary artery 03/08/2012 Tubular adenoma of colon 08/03/2012 Type 2 diabetes mellitus with stage 3a chronic kidney disease, without long-term current use of insulin ([facility]) 09/26/2022 Type II or unspecified type diabetes mellitus without mention of complication, not stated as uncontrolled 09/05/2007 Unstable angina ([facility]) 07/28/2013 PAST SURGICAL HISTORY Procedure Laterality Date [...] Relation Age of Onset Heart Father of [place] approximately age 40s COPD Mother Diabetes Mother Hypertension Mother Arthritis Brother Diabetes Sister The review of systems data was entered by the nurse and reviewed by ky Nursing Notes: Scarlet Geller LPN 08/04/2023 3:42 [...] will be scheduled for the procedure at [facility]. Diagnoses: (Z86.010) History of colonic polyps (primary encounter diagnosis) I have confirmed and edited as necessary, the PFSH and ROS obtained by others. I spent a total of 26 minutes on the date of the service which included preparing to see the patient with review of any pertinent laboratory studies/radiological imaging/medical records, ccaf-le-jnfbeywciei care, obtaining oral medical history from the patient in this encounter, counseling and educating the patient/family/caregiver, and ordering and/or scheduling of medications/tests/procedures,and completing appropriate medical documentation. Madelin Blanc MD documented in this encounterGreen Cross Hospital11-08-2023 Nurse Note* Scarlet Geller LPN - [...] 2021 Scarlet Geller LPN documented in this encounterGreen Cross Hospital10-30-2023 Miscellaneous Notes* Telephone Encounter - Marino [...] notify patient. Karishma Taylor documented in this encounterGreen Cross Hospital10-30-2023 Instructions* Patient Instructions* Margarito Joseph - [...] (or decreased sensation in your feet) a bottom hoop driver should always cut your toenails. Be Careful [...] Go to your health care provider or bottom hoop driver to treat these conditions. documented in this encounterGreen Cross Hospital10-30-2023 History of Present illness Narrative* Margarito [...] Care Lupis Ramirez LPN documented in this encounterGreen Cross Hospital10-13-2023 Miscellaneous Notes* Telephone Encounter - Malia Arndt LPN - 07/09/2023 1:48 PM EDT Patient returned call and went over notes from Liat Emery CUSTOMER RELATIONS SPECIALIST and [facility] will call the [facility] for [facility]. * Telephone Encounter - Gerda Hsieh LPN - 07/09/2023 10:24 AM EDT 1st attempt to reach pt by phone was unsuccessful. Try pt later. Gerda Hsieh LPN * Telephone Encounter - Liat Emery APRN.CNP - 07/09/2023 6:38 AM EDT This is prescribed by [facility] Liat Emery APRN.BOB * Telephone [...] and advise. Layne Prajapati documented in this encounterGreen Cross Hospital09-01-2023 Miscellaneous Notes* Telephone Encounter - Hillary [...] notify patient. Karishma Taylor documented in this encounterGreen Cross Hospital08-14-2023 Miscellaneous Notes* Telephone Encounter - Marino Weiss Ma - 05/10/2023 1:06 PM EDT WALT: 04/02/2023 Last refill: 04/01/2022 QTY: 18 g Refills: 5 * Telephone Encounter - Clementina Wade - 05/10/2023 9:19 AM EDT Pharmacy verified in [facility] Patient has been identified by [...] advise. Clementina Hopkins Pss documented in this encounterGreen Cross Hospital07-31-2023 History of Present illness Narrative* Nilda Kim PA-C - 04/26/2023 2:56 PM EDTAssociated Order(s): Large Joint Arthro/Inj: L knee joint Post-Procedure Diagnose(s): Primary osteoarthritis of left knee Large Joint Arthro/Inj: L knee joint Informed Consent Consent Obtained: Verbal [place] Protocol A moment to CARE was completed. [...] Units: Years Frequency: Intermittent documented in this encounterGreen Cross Hospital07-27-2023 Instructions* Patient Instructions* Margarito Joseph - [...] (or decreased sensation in your feet) a bottom hoop driver should always cut your toenails. Be Careful [...] Go to your health care provider or bottom hoop driver to treat these conditions. documented in this encounterGreen Cross Hospital07-27-2023 History of Present illness Narrative* Margarito [...] 03/05/2012 Arthritis Asthma CAD (coronary artery disease), match[place] coronary artery 03/05/2012 COPD (chronic obstructive pulmonary disease) ([facility]) COVID-19 04/24/2022 Hypertension Hypertrophy of prostate without urinary obstruction and other lower urinary tract symptoms (LUTS) 07/28/2007 Left knee pain Marijuana use Nocturnal hypoxia 10/06/2017 Obesity (BMI 30-39.9) Obstructive sleep apnea 10/06/2017 [facility] Other and unspecified hyperlipidemia Stented coronary artery 03/08/2012 Tubular adenoma of colon 08/03/2012 Type 2 diabetes mellitus with stage 3a chronic kidney disease, without long-term current use of insulin ([facility]) 09/26/2022 Type II or unspecified type diabetes mellitus without mention of complication, not stated as uncontrolled 09/05/2007 Unstable angina ([facility]) 07/28/2013 Current Outpatient Medications Medication Sig rosuvastatin [...] Relation Age of Onset Heart Father of [place] approximately age 40s COPD Mother Diabetes Mother [...] Denies any open wounds. documented in this encounterGreen Cross Hospital07-12-2023 Miscellaneous Notes* Telephone Encounter - Johanny Palomo LPN - 04/07/2023 12:58 PM EDT Patient notified, he will parts picker RX from pharmacy Johanny Palomo LPN * Telephone Encounter - Johanny Palomo LPN - 04/07/2023 12:55 PM EDT ----- Message from Grant Krause MD sent at 04/06/2023 8:46 PM EDT ----- Test results are okay but diabetes is elevating. Add glipizide ER 2.5 mg every AM with meal. documented in this [facility]07-07-2023 Instructions* Patient Instructions* Grant Krause MD - 04/02/2023 1:34 PM EDT BLOOD WORK TODAY. documented in this [facility]07-07-2023 History of Present illness Narrative* Grant Krause MD - 04/02/2023 1:22 PM EDT This note was created using Engiverriter. Subjective Xavi Cabello is a 68 year [...] of Insulin (Hcc) Cad (Coronary Artery Disease), [place] Coronary Artery Stented Coronary Artery Benign Prostatic [...] - CBC 3. Coronary artery disease involving match-e[place]be[place]nash[place]she[place]wish band coronary artery of match-e-be[place]wish band heart without angina pectoris- ICD9: 414.01, ICD10: I25.10 [facility]. 4. Mixed hyperlipidemia - ICD9: 272.2, ICD10: E78.2 - Controlled - Continue current medications - LIPID PANEL BASIC 5. Obesity, Class II, BMI 35-39.9 - ICD9: 278.00, ICD10: E66.9 Weight increasing - Behavioral intervention 6. Bunion - ICD9: 727.1, ICD10: M21.619 - CONSULT TO PODIATRY Grant Krause MD documented in this encounterGreen Cross Hospital07-07-2023 Evaluation note* Diagnosis Type 2 diabetes mellitus with stage 3a chronic kidney disease, without long-term current use of insulin (HCC)- Primary Essential hypertension Unspecified essential hypertension Coronary artery disease involving match-e[place]be[place]nash[place]wish band coronary artery of match-e[place]be[place]ish band heart without angina pectoris Mixed hyperlipidemia Obesity, Class II, BMI 35-39.9 Obesity, unspecified Bunion documented in this encounter [facility]06-[facility] Miscellaneous Notes* Telephone Encounter - Marino [...] notify patient. Lesa Ledesma documented in this encounterGreen Cross Hospital04-25-2023 Miscellaneous Notes* Telephone Encounter - Marino [...] patient. Karishma Higginbotham Pss documented in this encounterGreen Cross Hospital04-17-2023 History of Present illness Narrative* Nilda Kim PA-C - 2023 3:22 PM EDTAssociated Order(s): Large Joint Arthro/Inj: L knee joint Post-Procedure Diagnose(s): Primary osteoarthritis of left knee Nilda Kim PA-C Department of Orthopaedics Orthopaedics [address] [address] Dept: [phone] Dept 2023 CHIEF COMPLAINT: Follow Up of [...] knee joint Informed Consent Consent Obtained: Verbal [place] Protocol A moment to CARE was completed. [...] allergies. This note was partially generated using E-Generator voice recognition system, and there may be [...] med's for the pain. documented in this encounterGreen Cross Hospital04-03-2023 Miscellaneous Notes* Telephone Encounter - Ivonne [...] will call office back. documented in this encounterGreen Cross Hospital03-24-2023 Miscellaneous Notes* Telephone Encounter - Shanae [...] you. Shanae Tam RN documented in this encounterGreen Cross Hospital03-22-2023 Instructions* Patient Instructions* Liat Emery APRN.SUPPORT ANALYST - 12/16/2022 3:24 PM EDT Have blood [...] review all the medicines you take, even rdmn-mlw-vggmksq medicines. As you get older, the way [...] have certain medical conditions. documented in this encounterGreen Cross Hospital03-22-2023 History of Present illness Narrative* Liat Emery APRN.CNP - 12/16/2022 3:22 PM EDT Xavi Cabello is a 67 year old male here for a Medicare Subsequent Annual Wellness Visit Health Risk Assessment In general, health is: Very good Concerns with balance:occasionally, no falls Concerns with teeth or dentures:needs dental implants Concerns with sexual function:Not at all [place] anxious, stressed, angry, irritable, lonely, isolated, or [...] specialists seen: Mo Hatfield as Physician (Cardiology) Blind Slat Stapling Machine Operator- unsure of name Orthopedics- [facility]/Family history review Reviewed and updated problem [...] 100 MG CAPSULE refilled documented in this encounterGreen Cross Hospital02-28-2023 Miscellaneous Notes* Telephone Encounter - Hillary Flores LPN - 11/24/2022 2:45 PM EST Last seen pcp 09/25/22. Next appt with CUSTOMER RELATIONS SPECIALIST 12/16/22. * Telephone Encounter - Symone Hsieh [...] patient. Symone Hsieh Pss documented in this encounterGreen Cross Hospital02-20-2023 History of Present illness Narrative* Bri [...] visits Payer: Payor: [employer] MEDICARE / Plan: [employer] / Product Type: HMO / Care Gap [...] 16, 2022 1:47 PM documented in this encounterGreen Cross Hospital02-06-2023 Miscellaneous Notes* Telephone Encounter - Marino Weiss Ma - 11/02/2022 3:30 PM EST [facility]: 09/25/2022 Last refill: 07/25/2022 QTY: 90 Refills: 1 * Telephone Encounter - [facility] - 11/02/2022 2:45 PM EST Patient has been identified by name and date of : Yes Requested Prescriptions Pending Prescriptions Disp Refills empagliflozin (JARDIANCE) 25 mg tablet 90 tablet 3 Sig: Take 1 tablet by mouth once daily. Take 1 tablet once daily in the morning RX INSTRUCTIONS: Patient aware RX will be sent to pharmacy. No need to notify patient. [facility] documented in this encounterGreen Cross Hospital01-05-2023 Miscellaneous Notes* Telephone Encounter - Shefali Arias - 10/01/2022 12:55 PM EST Patient is calling again in regards to the previous request for rosuvastatin. He states he only hasfour doses remaining and will need to refill prior to the weekend. * Telephone Encounter - Ese Bailey LPN - 09/30/2022 1:01 PM EST Patient has a current script for sildenafil at [facility] that was sent 09/28/22. Last office visit: [...] Thank you. Shefali Arias documented in this encounterGreen Cross Hospital01-02-2023 Miscellaneous Notes* Telephone Encounter - Grant [...] contact Prescriber first YOON is from his wood pile driver operator. Grant Krause MD * Telephone Encounter [...] Thank you. Fadumo Barnett documented in this encounterGreen Cross Hospital12-28-2022 Nurse Note* Nini Pierce RN - 09/23/2022 12:43 PM EST Patient arrived laying on his left side. States he is having 7/10 pain in abdomen. Abdomen appears to be slightly distended and soft to touch. Patient encouraged to pass gas or belch to relieve gas pain. documented in this encounterGreen Cross Hospital12-28-2022 History and physical note * Madelin [...] 2022 TIME: 11:25 AM Source Note - Mdaelin Blanc MD - 09/23/2022 11:15 AM EST [...] Alcohol abuse 03/05/2012 CAD (coronary artery disease), [place] coronary artery 03/05/2012 COVID-19 04/24/2022 Hypertension Hypertrophy [...] Relation Age of Onset Heart Father of [place] approximately age 40s COPD Mother Diabetes Mother Hypertension Mother Arthritis Brother Diabetes Sister The review of systems data was entered by the nurse and reviewed by ky Nursing Notes: Peter LingYUN 08/05/2022 2:18 PM [...] Alcohol abuse 03/05/2012 CAD (coronary artery disease), [place] coronary artery 03/05/2012 COVID-19 04/24/2022 Hypertension Hypertrophy [...] Relation Age of Onset Heart Father of [place] approximately age 40s COPD Mother Diabetes Mother Hypertension Mother Arthritis Brother Diabetes Sister The review of systems data was entered by the nurse and reviewed by ky Nursing Notes: Peter Ling LPN 08/05/2022 2:18 [...] diagnosis) Madelin Blanc MD documented in this encounterGreen Cross Hospital12-21-2022 Miscellaneous Notes* Telephone Encounter - Malia Arndt LPN - 09/16/2022 4:23 PM EST Patient calling had missed call, aware rx x 2 were sent to pharmacy for him, per notes below. * Telephone Encounter - Gerda Hsieh LPN - 09/16/2022 4:19 PM EST done Gerda Hsieh LPN * Telephone Encounter - Liat Emery APRN.SUPPORT ANALYST - 09/16/2022 4:00 PM EST The following [...] advise. Celso Espinal Pss documented in this encounterGreen Cross Hospital12-06-2022 Miscellaneous Notes* Telephone Encounter - Ese [...] patient. Christie Williamson Pss documented in this encounterGreen Cross Hospital11-18-2022 Miscellaneous Notes* Telephone Encounter - Camryn [...] set up Will attempt later Yadira Neal Video Game Programmer * Telephone Encounter - Yadira Neal - [...] ago (1:21 PM) Yes, he can contact [facility] for this, thanks Kaela Zuluaga RN [...] Blanc. Kaela Zuluaga, RN documented in this encounterGreen Cross Hospital11-09-2022 Miscellaneous Notes* Telephone Encounter - Yadira [...] you at theASC Please advise Yadira Neal Video Game Programmer * Telephone Encounter - Shefali Arias - 08/03/2022 4:10 PM EST Patient called wanting to rescheduled his colonoscopy screening that was cancelled in April 2022 due to addison COVID. Please assist patient with scheduling/plan of care. documented in this encounterGreen Cross Hospital10-28-2022 Miscellaneous Notes* Telephone Encounter - Christie [...] patient. Christie Williamson Pss documented in this encounterGreen Cross Hospital10-14-2022 Miscellaneous Notes* Telephone Encounter - Johanny [...] advise. Reba Ybarra Pss documented in this encounterGreen Cross Hospital10-03-2022 Miscellaneous Notes* Telephone Encounter - Clementina Hopkins Pss - 06/29/2022 9:13 AM EDT Pharmacy verified in [facility] Patient has been identified by [...] advise. Clementina Hopkins Pss documented in this encounterGreen Cross Hospital08-15-2022 History of Present illness Narrative* Grant Krause MD - 05/11/2022 2:23 PM EDT This note was created using NoteWriter. Subjective Xavi Cabello is a 67 year old male. [...] Without Complications (Hcc) Cad (Coronary Artery Disease), [place] Coronary Artery Stented Coronary Artery Benign Prostatic [...] TO NEUROLOGY 2. Coronary artery disease involving match-[place]be[place]ish band coronary artery of match-e[place]be[place] band heart without angina pectoris- ICD9: 414.01, ICD10: I25.10 Per [facility]. 3. Stented coronary artery - ICD9: V45.82, ICD10: Z95.5 See HPI. 4. Primary osteoarthritis of left knee - ICD9: 715.16, ICD10: M17.12 He was advised to schedule with orthopedics. Grant Krause MD documented in this encounterGreen Cross Hospital08-05-2022 Miscellaneous Notes* Telephone Encounter - Shanae [...] tremors. Patient unspecific. Protocols used: MEDICATION QUESTION [id number] documented in this encounterGreen Cross Hospital08-02-2022 Miscellaneous Notes* Telephone Encounter - Malia Arndt LPN - 04/28/2022 12:45 PM EDT Patient returned call and went over notes from Dr Krause with understanding. Patient said he is taking Paxlovid rx from the ER visit. He has contacted Information Technology Technician office [facility] and left message of [...] 4:45 PM EDT Patient tested + at [facility] lupillo FELIPE on around 04/24/22. Quarantine will be over for him on 05/01/2022. He is to have a cardiac stent placed on 05/05/2022 which maybe postponed he has yet to updated the wood pile driver operator with + results. documented in this encounterGreen Cross Hospital07-29-2022 Miscellaneous Notes* Telephone Encounter - Dania [...] pharmacy. No need to notify patient. [facility] Electronically signed by Amanda Del Real [facility] at 04/24/2022 10:02 AM EDT documented in this encounterGreen Cross Hospital07-11-2022 Miscellaneous Notes* Telephone Encounter - Rupali [...] 04/06/2022 12:57 PM EDT Pharmacy verified in [facility] Patient has been identified by [...] Please advise. Clementina Taylor documented in this encounterGreen Cross Hospital07-06-2022 Miscellaneous Notes* Telephone Encounter - Johanny [...] 04/01/2022 10:27 AM EDT Pharmacy verified in [facility] Patient has been identified by [...] advise. Clementina Hopkins Pss documented in this encounterGreen Cross Hospital06-03-2022 Miscellaneous Notes* Telephone Encounter - Ivonne [...] you. Ivonne Presley LPN documented in this encounterGreen Cross Hospital05-24-2022 Miscellaneous Notes* Telephone Encounter - Johanny [...] No need to notify patient. Amanda Hamathieu [facility] Electronically signed by Amanda Del Real [facility] at 02/17/2022 12:00 PM EDT documented in this encounterGreen Cross Hospital05-19-2022 History of Present illness Narrative* Angeles [...] 12, 2022 4:13 PM documented in this encounterGreen Cross Hospital05-16-2022 Miscellaneous Notes* Telephone Encounter - Johanny Palomo LPN - 02/09/2022 3:33 PM EDT Patient has been identified by name and date of : Yes Patient phones for refill(s): Pending Prescriptions Disp Refills LISINOPRIL 10 MG TABLET 90 tablet 3 Sig: Take 1 tablet by mouth once daily. SILVIO: No Date of last office visit in primary care: 07/30/2021 [facility] ER follow-up: 02/12/2022 Last 2 Encounter Wt [...] notify patient. Lesa Ledesma documented in this encounterGreen Cross Hospital05-13-2022 Miscellaneous Notes* Telephone Encounter - Hillary [...] notify patient. Ivonne Taylor documented in this encounterGreen Cross Hospital05-02-2022 History of Present illness Narrative* Nilda Kim PA-C - 01/26/2022 3:11 PM EDT Nilda Kim PA-C Department of Orthopaedics Orthopaedics [address] [address] Dept: [phone] Dept January 26, 2022 CHIEF COMPLAINT: New [...] hours a day last summer along the [employer]. He is wanting to get back into [...] Small amount of left suprapatellar joint fluid. Social And Political Studies Professor: [facility] Transcribe Date/Time: Nov 28 2021 4:29P Dictated [...] anxiety) This note was partially generated using E-Generator voice recognition system, and there may be [...] measure: Relaxation X-rays 11/28/2021 documented in this encounterGreen Cross Hospital04-18-2022 Miscellaneous Notes* Telephone Encounter - Hillary [...] notify patient. Ashley Doe documented in this encounterGreen Cross Hospital04-06-2022 Miscellaneous Notes* Telephone Encounter - Emily [...] patient. Christie Williamson Pss documented in this encounterGreen Cross Hospital03-30-2022 History of Present illness Narrative* Wendy Narvaez MA - 12/24/2021 8:53 AM EDT POPULATION HEALTH NAVIGATION OUTREACH Action/FYI Voice mail not set up. Letter mailed. Patient is on [employer] for the following HM care gaps: COLORECTAL CANCER SCREENING - Last done at [facility]. ADVANCE DIRECTIVE DISCUSSION - Scanned 09/04/13. MyChart [...] 24, 2021 8:53 AM documented in this encounterGreen Cross Hospital03-04-2022 History of Present illness Narrative* Mala [...] 28, 2021 4:10 PM documented in this encounterGreen Cross Hospital11-20-2019 History of Past illness Narrative* Problem [...] and posterior ventricular branches fill by robust glyk-nd-zfurw collaterals from the LAD and LCx. Recommendations: 1) Continue aggressive risk factor modification 2) No need for intervention to RCA, given robust collaterals. Alcohol abuse 03/05/2012 03/16/2012 Overview: Drinks beer - three 24oz cans 2-3 times a day [facility] alcohol withdrawal protocol in house Advise to stop binge drinking Unstable angina 03/04/2012 03/15/2012 Overview: LHC ( 03/04/2012 ) at [facility] by Dr. 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 Presented with chest pain, no acute change in EKG, no elevation in the cardiac enzymes, (+) nuclear stress test, and a LHC which showed OM1 95-99% stenosis and RCA 100% stenosis. Patient underwent LHC at [facility] on 6/11, which revealed severe stenosis in LCx, occluded RCA. One BMS is placed in LCx. Patient is on aspirin, Plavix, Toprol XL, Lipitor on discharge. Smoking 03/04/2012 03/04/2012 Hypertension 03/04/2012 10/06/2017 Hypertrophy of prostate with out urinary obstruction and other lower urinary tract symptoms (LUTS) 07/28/2007 03/04/2012 Obesity (BMI 30-39.9) 2020 documented as of this encounter (statuses as of 11/08/2023) [facility]11-20-2019 History of Past illness Narrative* Problem [...] and posterior ventricular branches fill by robust ehaj-gs-ysdcq collaterals from the LAD and LCx. Recommendations: 1) Continue aggressive risk factor modification 2) No need for intervention to RCA, given robust collaterals. Alcohol abuse 03/05/2012 03/16/2012 Overview: Drinks beer - three 24oz cans 2-3 times a day [facility] alcohol withdrawal protocol in house Advise to stop binge drinking Unstable angina 03/04/2012 03/15/2012 Overview: LHC ( 03/04/2012 ) at [place] by Dr. 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 Presented with chest pain, no acute change in EKG, no elevation in the cardiac enzymes, (+) nuclear stress test, and a LHC which showed OM1 95-99% stenosis and RCA 100% stenosis. Patient underwent LHC at [facility] on 03/07, which revealed severe stenosis in LCx, occluded RCA. One BMS is placed in LCx. Patient is on aspirin, Plavix, Toprol XL, Lipitor on discharge. Smoking 03/04/2012 03/04/2012 Hypertension 03/04/2012 10/06/2017 Hypertrophy of prostate with out urinary obstruction and other lower urinary tract symptoms (LUTS) 07/28/2007 03/04/2012 Obesity (BMI 30-39.9) 2020 documented as of this encounter (statuses as of 11/25/2023) [facility]-20[facility]2019 History of Past illness Narrative* Problem [...] and posterior ventricular branches fill by robust [id number]-co-rlglp collaterals from the LAD and LCx. Recommendations: 1) Continue aggressive risk factor modification 2) No need for intervention to RCA, given robust collaterals. Alcohol abuse 03/05/2012 03/16/2012 Overview: Drinks beer - three 24oz cans 2-3 times a day [facility] alcohol withdrawal protocol in house Advise to stop binge drinking Unstable angina 03/04/2012 03/15/2012 Overview: [facility] ( 03/04/2012 ) at [place] by Dr. 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 Presented with chest pain, no acute change in EKG, no elevation in the cardiac enzymes, (+) nuclear stress test, and a LHC which showed OM1 95-99% stenosis and RCA 100% stenosis. Patient underwent LHC at [facility] on 03/07, which revealed severe stenosis in LCx, occluded RCA. One BMS is placed in LCx. Patient is on aspirin, Plavix, Toprol XL, Lipitor on discharge. Smoking 03/04/2012 03/04/2012 Hypertension 03/04/2012 10/06/2017 Hypertrophy of prostate with out urinary obstruction and other lower urinary tract symptoms (LUTS) 07/28/2007 03/04/2012 Obesity (BMI 30-39.9) 2020 documented as of this encounter (statuses as of 12/09/2023) [facility]2019 History of Past illness Narrative* Problem [...] and posterior ventricular branches fill by robust jwgs-jg-gknrv collaterals from the LAD and LCx. Recommendations: 1) Continue aggressive risk factor modification 2) No need for intervention to RCA, given robust collaterals. Alcohol abuse 03/05/2012 03/16/2012 Overview: Drinks beer - three 24oz cans 2-3 times a day [facility] alcohol withdrawal protocol in house Advise to stop binge drinking Unstable angina 03/04/2012 03/15/2012 Overview: LHC ( 03/04/2012 ) at [place] by Dr. 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 Presented with chest pain, no acute change in EKG, no elevation in the cardiac enzymes, (+) nuclear stress test, and a LHC which showed OM1 95-99% stenosis and RCA 100% stenosis. Patient underwent LHC at [facility] on 03/07, which revealed severe stenosis in LCx, occluded RCA. One BMS is placed in LCx. Patient is on aspirin, Plavix, Toprol XL, Lipitor on discharge. Smoking 03/04/2012 03/04/2012 Hypertension 03/04/2012 10/06/2017 Hypertrophy of prostate with out urinary obstruction and other lower urinary tract symptoms (LUTS) 07/28/2007 03/04/2012 Obesity (BMI 30-39.9) 2020 documented as of this encounter (statuses as of 01/14/2024) [facility]03-16[facility]2016 History of Past illness Narrative* Problem [...] and posterior ventricular branches fill by robust vzbo-cm-ahjqd collaterals from the LAD and LCx. Recommendations: 1) Continue aggressive risk factor modification 2) No need for intervention to RCA, given robust collaterals. Alcohol abuse 03/05/2012 03/16/2012 Overview: Drinks beer - three 24oz cans 2-3 times a day [facility] alcohol withdrawal protocol in house Advise to stop binge drinking Unstable angina 03/04/2012 03/15/2012 Overview: LHC ( 03/04/2012 ) at [place] by Dr. 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 Presented with chest pain, no acute change in EKG, no elevation in the cardiac enzymes, (+) nuclear stress test, and a LHC which showed OM1 95-99% stenosis and RCA 100% stenosis. Patient underwent LHC at [facility] on 03/07, which revealed severe stenosis in LCx, occluded RCA. One BMS is placed in LCx. Patient is on aspirin, Plavix, Toprol XL, Lipitor on discharge. Smoking 03/04/2012 03/04/2012 Hypertension 03/04/2012 10/06/2017 Hypertrophy of prostate with out urinary obstruction and other lower urinary tract symptoms (LUTS) 07/28/2007 03/04/2012 Obesity (BMI 30-39.9) 07/30/2021 documented as of this encounter (statuses as of 12/24/2021) [facility] History of Past illness Narrative* Problem [...] and posterior ventricular branches fill by robust glpe-oc-pvvyq collaterals from the LAD and LCx. Recommendations: 1) Continue aggressive risk factor modification 2) No need for intervention to RCA, given robust collaterals. Alcohol abuse 03/05/2012 03/16/2012 Overview: Drinks beer - three 24oz cans 2-3 times a day [facility] alcohol withdrawal protocol in house Advise to stop binge drinking Unstable angina 03/04/2012 03/15/2012 Overview: C ( 03/04/2012 ) at [place] by Dr. 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 Presented with chest pain, no acute change in EKG, no elevation in the cardiac enzymes, (+) nuclear stress test, and a LHC which showed OM1 95-99% stenosis and RCA 100% stenosis. Patient underwent LHC at [facility] on 03/07, which revealed severe stenosis in LCx, occluded RCA. One BMS is placed in LCx. Patient is on aspirin, Plavix, Toprol XL, Lipitor on discharge. Smoking 03/04/2012 03/04/2012 Hypertension 03/04/2012 10/06/2017 Hypertrophy of prostate with out urinary obstruction and other lower urinary tract symptoms (LUTS) 07/28/2007 03/04/2012 Obesity (BMI 30-39.9) 07/30/2021 documented as of this encounter (statuses as of 12/31/2021) [facility]2016 History of Past illness Narrative* Problem [...] and posterior ventricular branches fill by robust gmdz-ws-jxvpt collaterals from the LAD and LCx. Recommendations: 1) Continue aggressive risk factor modification 2) No need for intervention to RCA, given robust collaterals. Alcohol abuse 03/05/2012 03/16/2012 Overview: Drinks beer - three 24oz cans 2-3 times a day [facility] alcohol withdrawal protocol in house Advise to stop binge drinking Unstable angina 03/04/2012 03/15/2012 Overview: LHC ( 03/04/2012 ) at [place] by Dr. 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 Presented with chest pain, no acute change in EKG, no elevation in the cardiac enzymes, (+) nuclear stress test, and a LHC which showed OM1 95-99% stenosis and RCA 100% stenosis. Patient underwent LHC at [facility] on 03/07, which revealed severe stenosis in LCx, occluded RCA. One BMS is placed in LCx. Patient is on aspirin, Plavix, Toprol XL, Lipitor on discharge. Smoking 03/04/2012 03/04/2012 Hypertension 03/04/2012 10/06/2017 Hypertrophy of prostate with out urinary obstruction and other lower urinary tract symptoms (LUTS) 07/28/2007 03/04/2012 Obesity (BMI 30-39.9) 07/30/2021 documented as of this encounter (statuses as of 01/12/2022) [facility] History of Past illness Narrative* Problem [...] and posterior ventricular branches fill by robust rarz-iy-myloo collaterals from the LAD and LCx. Recommendations: 1) Continue aggressive risk factor modification 2) No need for intervention to RCA, given robust collaterals. Alcohol abuse 03/05/2012 03/16/2012 Overview: Drinks beer - three 24oz cans 2-3 times a day [facility] alcohol withdrawal protocol in house Advise to stop binge drinking Unstable angina 03/04/2012 03/15/2012 Overview: LHC ( 03/04/2012 ) at [place] by Dr. 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 Presented with chest pain, no acute change in EKG, no elevation in the cardiac enzymes, (+) nuclear stress test, and a LHC which showed OM1 95-99% stenosis and RCA 100% stenosis. Patient underwent LHC at [facility] on 03/07, which revealed severe stenosis in LCx, occluded RCA. One BMS is placed in LCx. Patient is on aspirin, Plavix, Toprol XL, Lipitor on discharge. Smoking 03/04/2012 03/04/2012 Hypertension 03/04/2012 10/06/2017 Hypertrophy of prostate with out urinary obstruction and other lower urinary tract symptoms (LUTS) 07/28/2007 03/04/2012 Obesity (BMI 30-39.9) 07/30/2021 documented as of this encounter (statuses as of 01/26/2022) [facility] History of Past illness Narrative* Problem [...] and posterior ventricular branches fill by robust xbzk-pv-xfbfj collaterals from the LAD and LCx. Recommendations: 1) Continue aggressive risk factor modification 2) No need for intervention to RCA, given robust collaterals. Alcohol abuse 03/05/2012 03/16/2012 Overview: Drinks beer - three 24oz cans 2-3 times a day [facility] alcohol withdrawal protocol in house Advise to stop binge drinking Unstable angina 03/04/2012 03/15/2012 Overview: [facility] ( 03/04/2012 ) at [place] by Dr. 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 Presented with chest pain, no acute change in EKG, no elevation in the cardiac enzymes, (+) nuclear stress test, and a LHC which showed OM1 95-99% stenosis and RCA 100% stenosis. Patient underwent LHC at [facility] on 03/07, which revealed severe stenosis in LCx, occluded RCA. One BMS is placed in LCx. Patient is on aspirin, Plavix, Toprol XL, Lipitor on discharge. Smoking 03/04/2012 03/04/2012 Hypertension 03/04/2012 10/06/2017 Hypertrophy of prostate with out urinary obstruction and other lower urinary tract symptoms (LUTS) 07/28/2007 03/04/2012 Obesity (BMI 30-39.9) 07/30/2021 documented as of this encounter (statuses as of 02/06/2022) [facility] History of Past illness Narrative* Problem [...] and posterior ventricular branches fill by robust chna-[id number]-lplmx collaterals from the LAD and LCx. Recommendations: 1) Continue aggressive risk factor modification 2) No need for intervention to RCA, given robust collaterals. Alcohol abuse 03/05/2012 03/16/2012 Overview: Drinks beer - three 24oz cans 2-3 times a day [facility] alcohol withdrawal protocol in house Advise to stop binge drinking Unstable angina 03/04/2012 03/15/2012 Overview: LHC ( 03/04/2012 ) at [place] by Dr. 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 Presented with chest pain, no acute change in EKG, no elevation in the cardiac enzymes, (+) nuclear stress test, and a LHC which showed OM1 95-99% stenosis and RCA 100% stenosis. Patient underwent LHC at [facility] on 03/07, which revealed severe stenosis in LCx, occluded RCA. One BMS is placed in LCx. Patient is on aspirin, Plavix, Toprol XL, Lipitor on discharge. Smoking 03/04/2012 03/04/2012 Hypertension 03/04/2012 10/06/2017 Hypertrophy of prostate with out urinary obstruction and other lower urinary tract symptoms (LUTS) 07/28/2007 03/04/2012 Obesity (BMI 30-39.9) 07/30/2021 documented as of this encounter (statuses as of 02/10/2022) [facility] History of Past illness Narrative* Problem [...] and posterior ventricular branches fill by robust pnji-ro-rbrfp collaterals from the LAD and LCx. Recommendations: 1) Continue aggressive risk factor modification 2) No need for intervention to RCA, given robust collaterals. Alcohol abuse 03/05/2012 03/16/2012 Overview: Drinks beer - three 24oz cans 2-3 times a day [facility] alcohol withdrawal protocol in house Advise to stop binge drinking Unstable angina 03/04/2012 03/15/2012 Overview: C ( 03/04/2012 ) at [place] by Dr. 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 Presented with chest pain, no acute change in EKG, no elevation in the cardiac enzymes, (+) nuclear stress test, and a LHC which showed OM1 95-99% stenosis and RCA 100% stenosis. Patient underwent LHC at [facility] on 03/07, which revealed severe stenosis in LCx, occluded RCA. One BMS is placed in LCx. Patient is on aspirin, Plavix, Toprol XL, Lipitor on discharge. Smoking 03/04/2012 03/04/2012 Hypertension 03/04/2012 10/06/2017 Hypertrophy of prostate with out urinary obstruction and other lower urinary tract symptoms (LUTS) 07/28/2007 03/04/2012 Obesity (BMI 30-39.9) 07/30/2021 documented as of this encounter (statuses as of 02/13/2022) [facility] History of Past illness Narrative* Problem [...] and posterior ventricular branches fill by robust vvvi-ji-trxty collaterals from the LAD and LCx. Recommendations: 1) Continue aggressive risk factor modification 2) No need for intervention to RCA, given robust collaterals. Alcohol abuse 03/05/2012 03/16/2012 Overview: Drinks beer - three 24oz cans 2-3 times a day [facility] alcohol withdrawal protocol in house Advise to stop binge drinking Unstable angina 03/04/2012 03/15/2012 Overview: LHC ( 03/04/2012 ) at [place] by Dr. Barakat LVEDP elevated LV; normal [...] left to right collateral flow LHC at [facility] 03/07: 80% mid LCx stenosis, one BMS placed in mid LCx Chronically occluded RCA - ASA lifelong - Statin, BB - Plavix for at least 4 weeks - follow up with local wood pile driver operator as outpatient SUMMARY 03/04/2012 03/16/2012 Overview: 57 year old male with a PMH of DM, HTN, & HPL who was transferred from [facility] for further treatment of known 2 vessel [...] of this encounter (statuses as of 02/17/2022) [facility] History of Past illness Narrative* Problem [...] and posterior ventricular branches fill by robust pxul-sf-hfwdg collaterals from the LAD and LCx. Recommendations: 1) Continue aggressive risk factor modification 2) No need for intervention to RCA, given robust collaterals. Alcohol abuse 03/05/2012 03/16/2012 Overview: Drinks beer - three 24oz cans 2-3 times a day [facility] alcohol withdrawal protocol in house Advise to stop binge drinking Unstable angina 03/04/2012 03/15/2012 Overview: LHC ( 03/04/2012 ) at [place] by Dr. 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 Presented with chest pain, no acute change in EKG, no elevation in the cardiac enzymes, (+) nuclear stress test, and a LHC which showed OM1 95-99% stenosis and RCA 100% stenosis. Patient underwent LHC at [facility] on 03/07, which revealed severe stenosis in LCx, occluded RCA. One BMS is placed in LCx. Patient is on aspirin, Plavix, Toprol XL, Lipitor on discharge. Smoking 03/04/2012 03/04/2012 Hypertension 03/04/2012 10/06/2017 Hypertrophy of prostate with out urinary obstruction and other lower urinary tract symptoms (LUTS) 07/28/2007 03/04/2012 Obesity (BMI 30-39.9) 07/30/2021 documented as of this encounter (statuses as of 02/27/2022) [facility] History of Past illness Narrative* Problem [...] and posterior ventricular branches fill by robust nlmh-ti-qstoy collaterals from the LAD and LCx. Recommendations: 1) Continue aggressive risk factor modification 2) No need for intervention to RCA, given robust collaterals. Alcohol abuse 03/05/2012 03/16/2012 Overview: Drinks beer - three 24oz cans 2-3 times a day [facility] alcohol withdrawal protocol in house Advise to stop binge drinking Unstable angina 03/04/2012 03/15/2012 Overview: C ( 03/04/2012 ) at [place] by Dr. 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 Presented with chest pain, no acute change in EKG, no elevation in the cardiac enzymes, (+) nuclear stress test, and a LHC which showed OM1 95-99% stenosis and RCA 100% stenosis. Patient underwent LHC at [facility] on 03/07, which revealed severe stenosis in LCx, occluded RCA. One BMS is placed in LCx. Patient is on aspirin, Plavix, Toprol XL, Lipitor on discharge. Smoking 03/04/2012 03/04/2012 Hypertension 03/04/2012 10/06/2017 Hypertrophy of prostate with out urinary obstruction and other lower urinary tract symptoms (LUTS) 07/28/2007 03/04/2012 Obesity (BMI 30-39.9) 07/30/2021 documented as of this encounter (statuses as of 04/01/2022) [facility] History of Past illness Narrative* Problem [...] and posterior ventricular branches fill by robust pymn-yw-idrmc collaterals from the LAD and LCx. Recommendations: 1) Continue aggressive risk factor modification 2) No need for intervention to RCA, given robust collaterals. Alcohol abuse 03/05/2012 03/16/2012 Overview: Drinks beer - three 24oz cans 2-3 times a day [facility] alcohol withdrawal protocol in house Advise to stop binge drinking Unstable angina 03/04/2012 03/15/2012 Overview: LHC ( 03/04/2012 ) at [place] by Dr. 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 Presented with chest pain, no acute change in EKG, no elevation in the cardiac enzymes, (+) nuclear stress test, and a LHC which showed OM1 95-99% stenosis and RCA 100% stenosis. Patient underwent LHC at [facility] on 03/07, which revealed severe stenosis in LCx, occluded RCA. One BMS is placed in LCx. Patient is on aspirin, Plavix, Toprol XL, Lipitor on discharge. Smoking 03/04/2012 03/04/2012 Hypertension 03/04/2012 10/06/2017 Hypertrophy of prostate with out urinary obstruction and other lower urinary tract symptoms (LUTS) 07/28/2007 03/04/2012 Obesity (BMI 30-39.9) 07/30/2021 documented as of this encounter (statuses as of 04/06/2022) [facility]03-16-2016 History of Past illness Narrative* Problem [...] and posterior ventricular branches fill by robust vbcp-te-fzunh collaterals from the LAD and LCx. Recommendations: 1) Continue aggressive risk factor modification 2) No need for intervention to RCA, given robust collaterals. Alcohol abuse 03/05/2012 03/16/2012 Overview: Drinks beer - three 24oz cans 2-3 times a day [facility] alcohol withdrawal protocol in house Advise to stop binge drinking Unstable angina 03/04/2012 03/15/2012 Overview: LHC ( 03/04/2012 ) at [place] by Dr. 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 Presented with chest pain, no acute change in EKG, no elevation in the cardiac enzymes, (+) nuclear stress test, and a LHC which showed OM1 95-99% stenosis and RCA 100% stenosis. Patient underwent LHC at [facility] on 03/07, which revealed severe stenosis in LCx, occluded RCA. One BMS is placed in LCx. Patient is on aspirin, Plavix, Toprol XL, Lipitor on discharge. Smoking 03/04/2012 03/04/2012 Hypertension 03/04/2012 10/06/2017 Hypertrophy of prostate with out urinary obstruction and other lower urinary tract symptoms (LUTS) 07/28/2007 03/04/2012 Obesity (BMI 30-39.9) 07/30/2021 documented as of this encounter (statuses as of 04/24/2022) [facility]2016 History of Past illness Narrative* Problem [...] and posterior ventricular branches fill by robust ipvo-av-rsefs collaterals from the LAD and LCx. Recommendations: 1) Continue aggressive risk factor modification 2) No need for intervention to RCA, given robust collaterals. Alcohol abuse 03/05/2012 03/16/2012 Overview: Drinks beer - three 24oz cans 2-3 times a day [facility] alcohol withdrawal protocol in house Advise to stop binge drinking Unstable angina 03/04/2012 03/15/2012 Overview: [facility] ( 03/04/2012 ) at [place] by Dr. 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 Presented with chest pain, no acute change in EKG, no elevation in the cardiac enzymes, (+) nuclear stress test, and a LHC which showed OM1 95-99% stenosis and RCA 100% stenosis. Patient underwent LHC at [facility] on 03/07, which revealed severe stenosis in LCx, occluded RCA. One BMS is placed in LCx. Patient is on aspirin, Plavix, Toprol XL, Lipitor on discharge. Smoking 03/04/2012 03/04/2012 Hypertension 03/04/2012 10/06/2017 Hypertrophy of prostate with out urinary obstruction and other lower urinary tract symptoms (LUTS) 07/28/2007 03/04/2012 Obesity (BMI 30-39.9) 07/30/2021 documented as of this encounter (statuses as of 04/29/2022) [facility]2016 History of Past illness Narrative* Problem [...] and posterior ventricular branches fill by robust xkmr-ge-swotp collaterals from the LAD and LCx. Recommendations: 1) Continue aggressive risk factor modification 2) No need for intervention to RCA, given robust collaterals. Alcohol abuse 03/05/2012 03/16/2012 Overview: Drinks beer - three 24oz cans 2-3 times a day [facility] alcohol withdrawal protocol in house Advise to stop binge drinking Unstable angina 03/04/2012 03/15/2012 Overview: LHC ( 03/04/2012 ) at [place] by Dr. 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 Presented with chest pain, no acute change in EKG, no elevation in the cardiac enzymes, (+) nuclear stress test, and a LHC which showed OM1 95-99% stenosis and RCA 100% stenosis. Patient underwent LHC at [facility] on 03/07, which revealed severe stenosis in LCx, occluded RCA. One BMS is placed in LCx. Patient is on aspirin, Plavix, Toprol XL, Lipitor on discharge. Smoking 03/04/2012 03/04/2012 Hypertension 03/04/2012 10/06/2017 Hypertrophy of prostate with out urinary obstruction and other lower urinary tract symptoms (LUTS) 07/28/2007 03/04/2012 Obesity (BMI 30-39.9) 07/30/2021 documented as of this encounter (statuses as of 05/01/2022) [facility] History of Past illness Narrative* Problem [...] and posterior ventricular branches fill by robust ktqe-fl-imvev collaterals from the LAD and LCx. Recommendations: 1) Continue aggressive risk factor modification 2) No need for intervention to RCA, given robust collaterals. Alcohol abuse 03/05/2012 03/16/2012 Overview: Drinks beer - three 24oz cans 2-3 times a day [facility] alcohol withdrawal protocol in house Advise to stop binge drinking Unstable angina 03/04/2012 03/15/2012 Overview: LHC ( 03/04/2012 ) at [place] by Dr. 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 Presented with chest pain, no acute change in EKG, no elevation in the cardiac enzymes, (+) nuclear stress test, and a LHC which showed OM1 95-99% stenosis and RCA 100% stenosis. Patient underwent LHC at [facility] on 03/07, which revealed severe stenosis in LCx, occluded RCA. One BMS is placed in LCx. Patient is on aspirin, Plavix, Toprol XL, Lipitor on discharge. Smoking 03/04/2012 03/04/2012 Hypertension 03/04/2012 10/06/2017 Hypertrophy of prostate with out urinary obstruction and other lower urinary tract symptoms (LUTS) 07/28/2007 03/04/2012 Obesity (BMI 30-39.9) 07/30/2021 documented as of this encounter (statuses as of 05/11/2022) [facility] History of Past illness Narrative* Problem [...] and posterior ventricular branches fill by robust aznq-uk-masmp collaterals from the LAD and LCx. Recommendations: 1) Continue aggressive risk factor modification 2) No need for intervention to RCA, given robust collaterals. Alcohol abuse 03/05/2012 03/16/2012 Overview: Drinks beer - three 24oz cans 2-3 times a day [facility] alcohol withdrawal protocol in house Advise to stop binge drinking Unstable angina 03/04/2012 03/15/2012 Overview: LHC ( 03/04/2012 ) at [place] by Dr. 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 Presented with chest pain, no acute change in EKG, no elevation in the cardiac enzymes, (+) nuclear stress test, and a LHC which showed OM1 95-99% stenosis and RCA 100% stenosis. Patient underwent LHC at [facility] on 6/11, which revealed severe stenosis in LCx, occluded RCA. One BMS is placed in LCx. Patient is on aspirin, Plavix, Toprol XL, Lipitor on discharge. Smoking 03/04/2012 03/04/2012 Hypertension 03/04/2012 10/06/2017 Hypertrophy of prostate with out urinary obstruction and other lower urinary tract symptoms (LUTS) 07/28/2007 03/04/2012 Obesity (BMI 30-39.9) 07/30/2021 documented as of this encounter (statuses as of 06/29/2022) [facility] History of Past illness Narrative* Problem [...] and posterior ventricular branches fill by robust rccu-pt-zfxnr collaterals from the LAD and LCx. Recommendations: 1) Continue aggressive risk factor modification 2) No need for intervention to RCA, given robust collaterals. Alcohol abuse 03/05/2012 03/16/2012 Overview: Drinks beer - three 24oz cans 2-3 times a day [facility] alcohol withdrawal protocol in house Advise to stop binge drinking Unstable angina 03/04/2012 03/15/2012 Overview: LHC ( 03/04/2012 ) at [place] by Dr. 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 Presented with chest pain, no acute change in EKG, no elevation in the cardiac enzymes, (+) nuclear stress test, and a LHC which showed OM1 95-99% stenosis and RCA 100% stenosis. Patient underwent LHC at [facility] on 03/07, which revealed severe stenosis in LCx, occluded RCA. One BMS is placed in LCx. Patient is on aspirin, Plavix, Toprol XL, Lipitor on discharge. Smoking 03/04/2012 03/04/2012 Hypertension 03/04/2012 10/06/2017 Hypertrophy of prostate with out urinary obstruction and other lower urinary tract symptoms (LUTS) 07/28/2007 03/04/2012 Obesity (BMI 30-39.9) 07/30/2021 documented as of this encounter (statuses as of 07/10/2022) [facility]2016 History of Past illness Narrative* Problem [...] and posterior ventricular branches fill by robust njhy-go-qters collaterals from the LAD and LCx. Recommendations: 1) Continue aggressive risk factor modification 2) No need for intervention to RCA, given robust collaterals. Alcohol abuse 03/05/2012 03/16/2012 Overview: Drinks beer - three 24oz cans 2-3 times a day [facility] alcohol withdrawal protocol in house Advise to stop binge drinking Unstable angina 03/04/2012 03/15/2012 Overview: C ( 03/04/2012 ) at [place] by Dr. 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 Presented with chest pain, no acute change in EKG, no elevation in the cardiac enzymes, (+) nuclear stress test, and a LHC which showed OM1 95-99% stenosis and RCA 100% stenosis. Patient underwent LHC at [facility] on 03/07, which revealed severe stenosis in LCx, occluded RCA. One BMS is placed in LCx. Patient is on aspirin, Plavix, Toprol XL, Lipitor on discharge. Smoking 03/04/2012 03/04/2012 Hypertension 03/04/2012 10/06/2017 Hypertrophy of prostate with out urinary obstruction and other lower urinary tract symptoms (LUTS) 07/28/2007 03/04/2012 Obesity (BMI 30-39.9) 07/30/2021 documented as of this encounter (statuses as of 07/25/2022) [facility]2016 History of Past illness Narrative* Problem [...] and posterior ventricular branches fill by robust dfri-he-rapyv collaterals from the LAD and LCx. Recommendations: 1) Continue aggressive risk factor modification 2) No need for intervention to RCA, given robust collaterals. Alcohol abuse 03/05/2012 03/16/2012 Overview: Drinks beer - three 24oz cans 2-3 times a day [facility] alcohol withdrawal protocol in house Advise to stop binge drinking Unstable angina 03/04/2012 03/15/2012 Overview: LHC ( 03/04/2012 ) at [place] by Dr. 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 Presented with chest pain, no acute change in EKG, no elevation in the cardiac enzymes, (+) nuclear stress test, and a LHC which showed OM1 95-99% stenosis and RCA 100% stenosis. Patient underwent LHC at [facility] on 03/07, which revealed severe stenosis in LCx, occluded RCA. One BMS is placed in LCx. Patient is on aspirin, Plavix, Toprol XL, Lipitor on discharge. Smoking 03/04/2012 03/04/2012 Hypertension 03/04/2012 10/06/2017 Hypertrophy of prostate with out urinary obstruction and other lower urinary tract symptoms (LUTS) 07/28/2007 03/04/2012 Obesity (BMI 30-39.9) 07/30/2021 documented as of this encounter (statuses as of 08/17/2022) [facility] History of Past illness Narrative* Problem [...] and posterior ventricular branches fill by robust xznf-wn-lhajm collaterals from the LAD and LCx. Recommendations: 1) Continue aggressive risk factor modification 2) No need for intervention to RCA, given robust collaterals. Alcohol abuse 03/05/2012 03/16/2012 Overview: Drinks beer - three 24oz cans 2-3 times a day [facility] alcohol withdrawal protocol in house Advise to stop binge drinking Unstable angina 03/04/2012 03/15/2012 Overview: LHC ( 03/04/2012 ) at [place] by Dr. 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 Presented with chest pain, no acute change in EKG, no elevation in the cardiac enzymes, (+) nuclear stress test, and a LHC which showed OM1 95-99% stenosis and RCA 100% stenosis. Patient underwent LHC at [facility] on 03/07, which revealed severe stenosis in LCx, occluded RCA. One BMS is placed in LCx. Patient is on aspirin, Plavix, Toprol XL, Lipitor on discharge. Smoking 03/04/2012 03/04/2012 Hypertension 03/04/2012 10/06/2017 Hypertrophy of prostate with out urinary obstruction and other lower urinary tract symptoms (LUTS) 07/28/2007 03/04/2012 Obesity (BMI 30-39.9) 07/30/2021 documented as of this encounter (statuses as of 09/01/2022) [facility] History of Past illness Narrative* Problem [...] and posterior ventricular branches fill by robust usnj-rb-mfhwd collaterals from the LAD and LCx. Recommendations: 1) Continue aggressive risk factor modification 2) No need for intervention to RCA, given robust collaterals. Alcohol abuse 03/05/2012 03/16/2012 Overview: Drinks beer - three 24oz cans 2-3 times a day [facility] alcohol withdrawal protocol in house Advise to stop binge drinking Unstable angina 03/04/2012 03/15/2012 Overview: [facility] ( 03/04/2012 ) at [place] by Dr. 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 Presented with chest pain, no acute change in EKG, no elevation in the cardiac enzymes, (+) nuclear stress test, and a LHC which showed OM1 95-99% stenosis and RCA 100% stenosis. Patient underwent LHC at [facility] on 03/07, which revealed severe stenosis in LCx, occluded RCA. One BMS is placed in LCx. Patient is on aspirin, Plavix, Toprol XL, Lipitor on discharge. Smoking 03/04/2012 03/04/2012 Hypertension 03/04/2012 10/06/2017 Hypertrophy of prostate with out urinary obstruction and other lower urinary tract symptoms (LUTS) 07/28/2007 03/04/2012 Obesity (BMI 30-39.9) 07/30/2021 documented as of this encounter (statuses as of 09/08/2022) [facility] History of Past illness Narrative* Problem [...] and posterior ventricular branches fill by robust ekew-gq-wvnwr collaterals from the LAD and LCx. Recommendations: 1) Continue aggressive risk factor modification 2) No need for intervention to RCA, given robust collaterals. Alcohol abuse 03/05/2012 03/16/2012 Overview: Drinks beer - three 24oz cans 2-3 times a day [facility] alcohol withdrawal protocol in house Advise to stop binge drinking Unstable angina 03/04/2012 03/15/2012 Overview: LHC ( 03/04/2012 ) at [place] by Dr. 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 Presented with chest pain, no acute change in EKG, no elevation in the cardiac enzymes, (+) nuclear stress test, and a LHC which showed OM1 95-99% stenosis and RCA 100% stenosis. Patient underwent LHC at [facility] on 03/07, which revealed severe stenosis in LCx, occluded RCA. One BMS is placed in LCx. Patient is on aspirin, Plavix, Toprol XL, Lipitor on discharge. Smoking 03/04/2012 03/04/2012 Hypertension 03/04/2012 10/06/2017 Hypertrophy of prostate with out urinary obstruction and other lower urinary tract symptoms (LUTS) 07/28/2007 03/04/2012 Obesity (BMI 30-39.9) 07/30/2021 documented as of this encounter (statuses as of 09/16/2022) [facility] History of Past illness Narrative* Problem [...] and posterior ventricular branches fill by robust hdmn-zl-kfjct collaterals from the LAD and LCx. Recommendations: 1) Continue aggressive risk factor modification 2) No need for intervention to RCA, given robust collaterals. Alcohol abuse 03/05/2012 03/16/2012 Overview: Drinks beer - three 24oz cans 2-3 times a day [facility] alcohol withdrawal protocol in house Advise to stop binge drinking Unstable angina 03/04/2012 03/15/2012 Overview: LHC ( 03/04/2012 ) at [place] by Dr. 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 Presented with chest pain, no acute change in EKG, no elevation in the cardiac enzymes, (+) nuclear stress test, and a LHC which showed OM1 95-99% stenosis and RCA 100% stenosis. Patient underwent LHC at [facility] on 03/07, which revealed severe stenosis in LCx, occluded RCA. One BMS is placed in LCx. Patient is on aspirin, Plavix, Toprol XL, Lipitor on discharge. Smoking 03/04/2012 03/04/2012 Hypertension 03/04/2012 10/06/2017 Hypertrophy of prostate with out urinary obstruction and other lower urinary tract symptoms (LUTS) 07/28/2007 03/04/2012 Obesity (BMI 30-39.9) 07/30/2021 documented as of this encounter (statuses as of 10/02/2022) [facility] History of Past illness Narrative* Problem [...] and posterior ventricular branches fill by robust gyga-zy-vlsrm collaterals from the LAD and LCx. Recommendations: 1) Continue aggressive risk factor modification 2) No need for intervention to RCA, given robust collaterals. Alcohol abuse 03/05/2012 03/16/2012 Overview: Drinks beer - three 24oz cans 2-3 times a day [facility] alcohol withdrawal protocol in house Advise to stop binge drinking Unstable angina 03/04/2012 03/15/2012 Overview: LHC ( 03/04/2012 ) at [place] by Dr. 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 Presented with chest pain, no acute change in EKG, no elevation in the cardiac enzymes, (+) nuclear stress test, and a LHC which showed OM1 95-99% stenosis and RCA 100% stenosis. Patient underwent LHC at [facility] on 03/07, which revealed severe stenosis in LCx, occluded RCA. One BMS is placed in LCx. Patient is on aspirin, Plavix, Toprol XL, Lipitor on discharge. Smoking 03/04/2012 03/04/2012 Hypertension 03/04/2012 10/06/2017 Hypertrophy of prostate with out urinary obstruction and other lower urinary tract symptoms (LUTS) 07/28/2007 03/04/2012 Obesity (BMI 30-39.9) 07/30/2021 documented as of this encounter (statuses as of 11/03/2022) [facility] History of Past illness Narrative* Problem [...] ---ASA ---Statin ---Heparin gtt ---Serial cardiac enzymes [facility] on 07/31/13 :The RCA is a large dominant vessel that is totally occluded in the proximal segment. The distal RCA, posterior descending artery, and posterior ventricular branches fill by robust zedi-th-sedwr collaterals from the LAD and LCx. Recommendations: 1) Continue aggressive risk factor modification 2) No need for intervention to RCA, given robust collaterals. Alcohol abuse 03/05/2012 03/16/2012 Overview: Drinks beer - three 24oz cans 2-3 times a day [facility] alcohol withdrawal protocol in house Advise to stop binge drinking Unstable angina 03/04/2012 03/15/2012 Overview: LHC ( 03/04/2012 ) at [place] by Dr. 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 Presented with chest pain, no acute change in EKG, no elevation in the cardiac enzymes, (+) nuclear stress test, and a LHC which showed OM1 95-99% stenosis and RCA 100% stenosis. Patient underwent LHC at [facility] on 03/07, which revealed severe stenosis in LCx, occluded RCA. One BMS is placed in LCx. Patient is on aspirin, Plavix, Toprol XL, Lipitor on discharge. Smoking 03/04/2012 03/04/2012 Hypertension 03/04/2012 10/06/2017 Hypertrophy of prostate with out urinary obstruction and other lower urinary tract symptoms (LUTS) 07/28/2007 03/04/2012 Obesity (BMI 30-39.9) 07/30/2021 documented as of this encounter (statuses as of 11/16/2022) [facility]2016 History of Past illness Narrative* Problem [...] and posterior ventricular branches fill by robust [id number] collaterals from the LAD and LCx. Recommendations: 1) Continue aggressive risk factor modification 2) No need for intervention to RCA, given robust collaterals. Alcohol abuse 03/05/2012 03/16/2012 Overview: Drinks beer - three 24oz cans 2-3 times a day [facility] alcohol withdrawal protocol in house Advise to stop binge drinking Unstable angina 03/04/2012 03/15/2012 Overview: C ( 03/04/2012 ) at [place] by Dr. 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 Presented with chest pain, no acute change in EKG, no elevation in the cardiac enzymes, (+) nuclear stress test, and a LHC which showed OM1 95-99% stenosis and RCA 100% stenosis. Patient underwent LHC at [facility] on 03/07, which revealed severe stenosis in LCx, occluded RCA. One BMS is placed in LCx. Patient is on aspirin, Plavix, Toprol XL, Lipitor on discharge. Smoking 03/04/2012 03/04/2012 Hypertension 03/04/2012 10/06/2017 Hypertrophy of prostate with out urinary obstruction and other lower urinary tract symptoms (LUTS) 07/28/2007 03/04/2012 Obesity (BMI 30-39.9) 07/30/2021 documented as of this encounter (statuses as of 11/26/2022) [facility]2016 History of Past illness Narrative* Problem [...] and posterior ventricular branches fill by robust chhp-iu-bcpce collaterals from the LAD and LCx. Recommendations: 1) Continue aggressive risk factor modification 2) No need for intervention to RCA, given robust collaterals. Alcohol abuse 03/05/2012 03/16/2012 Overview: Drinks beer - three 24oz cans 2-3 times a day [facility] alcohol withdrawal protocol in house Advise to stop binge drinking Unstable angina 03/04/2012 03/15/2012 Overview: LHC ( 03/04/2012 ) at [place] by Dr. 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 Presented with chest pain, no acute change in EKG, no elevation in the cardiac enzymes, (+) nuclear stress test, and a LHC which showed OM1 95-99% stenosis and RCA 100% stenosis. Patient underwent LHC at [facility] on 03/07, which revealed severe stenosis in LCx, occluded RCA. One BMS is placed in LCx. Patient is on aspirin, Plavix, Toprol XL, Lipitor on discharge. Smoking 03/04/2012 03/04/2012 Hypertension 03/04/2012 10/06/2017 Hypertrophy of prostate with out urinary obstruction and other lower urinary tract symptoms (LUTS) 07/28/2007 03/04/2012 Obesity (BMI 30-39.9) 07/30/2021 documented as of this encounter (statuses as of 12/16/2022) [facility] History of Past illness Narrative* Problem [...] and posterior ventricular branches fill by robust ervy-fn-vlhaj collaterals from the LAD and LCx. Recommendations: 1) Continue aggressive risk factor modification 2) No need for intervention to RCA, given robust collaterals. Alcohol abuse 03/05/2012 03/16/2012 Overview: Drinks beer - three 24oz cans 2-3 times a day [facility] alcohol withdrawal protocol in house Advise to stop binge drinking Unstable angina 03/04/2012 03/15/2012 Overview: LHC ( 03/04/2012 ) at [place] by Dr. 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 Presented with chest pain, no acute change in EKG, no elevation in the cardiac enzymes, (+) nuclear stress test, and a LHC which showed OM1 95-99% stenosis and RCA 100% stenosis. Patient underwent LHC at [facility] on 03/07, which revealed severe stenosis in LCx, occluded RCA. One BMS is placed in LCx. Patient is on aspirin, Plavix, Toprol XL, Lipitor on discharge. Smoking 03/04/2012 03/04/2012 Hypertension 03/04/2012 10/06/2017 Hypertrophy of prostate with out urinary obstruction and other lower urinary tract symptoms (LUTS) 07/28/2007 03/04/2012 Obesity (BMI 30-39.9) 07/30/2021 documented as of this encounter (statuses as of 12/18/2022) [facility] History of Past illness Narrative* Problem [...] and posterior ventricular branches fill by robust ipef-ai-wybvu collaterals from the LAD and LCx. Recommendations: 1) Continue aggressive risk factor modification 2) No need for intervention to RCA, given robust collaterals. Alcohol abuse 03/05/2012 03/16/2012 Overview: Drinks beer - three 24oz cans 2-3 times a day [facility] alcohol withdrawal protocol in house Advise to stop binge drinking Unstable angina 03/04/2012 03/15/2012 Overview: [facility] ( 03/04/2012 ) at [place] by Dr. 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 Presented with chest pain, no acute change in EKG, no elevation in the cardiac enzymes, (+) nuclear stress test, and a LHC which showed OM1 95-99% stenosis and RCA 100% stenosis. Patient underwent LHC at [facility] on 03/07, which revealed severe stenosis in LCx, occluded RCA. One BMS is placed in LCx. Patient is on aspirin, Plavix, Toprol XL, Lipitor on discharge. Smoking 03/04/2012 03/04/2012 Hypertension 03/04/2012 10/06/2017 Hypertrophy of prostate with out urinary obstruction and other lower urinary tract symptoms (LUTS) 07/28/2007 03/04/2012 Obesity (BMI 30-39.9) 07/30/2021 documented as of this encounter (statuses as of 12/28/2022) [facility] History of Past illness Narrative* Problem [...] and posterior ventricular branches fill by robust rbit-[id number]-mogzu collaterals from the LAD and LCx. Recommendations: 1) Continue aggressive risk factor modification 2) No need for intervention to RCA, given robust collaterals. Alcohol abuse 03/05/2012 03/16/2012 Overview: Drinks beer - three 24oz cans 2-3 times a day [facility] alcohol withdrawal protocol in house Advise to stop binge drinking Unstable angina 03/04/2012 03/15/2012 Overview: LHC ( 03/04/2012 ) at [place] by Dr. 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 Presented with chest pain, no acute change in EKG, no elevation in the cardiac enzymes, (+) nuclear stress test, and a LHC which showed OM1 95-99% stenosis and RCA 100% stenosis. Patient underwent LHC at [facility] on 03/07, which revealed severe stenosis in LCx, occluded RCA. One BMS is placed in LCx. Patient is on aspirin, Plavix, Toprol XL, Lipitor on discharge. Smoking 03/04/2012 03/04/2012 Hypertension 03/04/2012 10/06/2017 Hypertrophy of prostate with out urinary obstruction and other lower urinary tract symptoms (LUTS) 07/28/2007 03/04/2012 Obesity (BMI 30-39.9) 07/30/2021 documented as of this encounter (statuses as of 01/09/2023) [facility] History of Past illness Narrative* Problem [...] and posterior ventricular branches fill by robust xxzn-[id number]-joevn collaterals from the LAD and LCx. Recommendations: 1) Continue aggressive risk factor modification 2) No need for intervention to RCA, given robust collaterals. Alcohol abuse 03/05/2012 03/16/2012 Overview: Drinks beer - three 24oz cans 2-3 times a day [facility] alcohol withdrawal protocol in house Advise to stop binge drinking Unstable angina 03/04/2012 03/15/2012 Overview: LHC ( 03/04/2012 ) at [place] by Dr. 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 Presented with chest pain, no acute change in EKG, no elevation in the cardiac enzymes, (+) nuclear stress test, and a LHC which showed OM1 95-99% stenosis and RCA 100% stenosis. Patient underwent LHC at [facility] on 03/07, which revealed severe stenosis in LCx, occluded RCA. One BMS is placed in LCx. Patient is on aspirin, Plavix, Toprol XL, Lipitor on discharge. Smoking 03/04/2012 03/04/2012 Hypertension 03/04/2012 10/06/2017 Hypertrophy of prostate with out urinary obstruction and other lower urinary tract symptoms (LUTS) 07/28/2007 03/04/2012 Obesity (BMI 30-39.9) 07/30/2021 documented as of this encounter (statuses as of 01/12/2023) [facility] History of Past illness Narrative* Problem [...] and posterior ventricular branches fill by robust tzln-cd-jlqik collaterals from the LAD and LCx. Recommendations: 1) Continue aggressive risk factor modification 2) No need for intervention to RCA, given robust collaterals. Alcohol abuse 03/05/2012 03/16/2012 Overview: Drinks beer - three 24oz cans 2-3 times a day [facility] alcohol withdrawal protocol in house Advise to stop binge drinking Unstable angina 03/04/2012 03/15/2012 Overview: LHC ( 03/04/2012 ) at [place] by Dr. 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 Presented with chest pain, no acute change in EKG, no elevation in the cardiac enzymes, (+) nuclear stress test, and a LHC which showed OM1 95-99% stenosis and RCA 100% stenosis. Patient underwent LHC at [facility] on 03/07, which revealed severe stenosis in LCx, occluded RCA. One BMS is placed in LCx. Patient is on aspirin, Plavix, Toprol XL, Lipitor on discharge. Smoking 03/04/2012 03/04/2012 Hypertension 03/04/2012 10/06/2017 Hypertrophy of prostate with out urinary obstruction and other lower urinary tract symptoms (LUTS) 07/28/2007 03/04/2012 Obesity (BMI 30-39.9) 07/30/2021 documented as of this encounter (statuses as of 01/20/2023) [facility] History of Past illness Narrative* Problem [...] ---ASA ---Statin ---Heparin gtt ---Serial cardiac enzymes [facility] on 07/31/13 :The RCA is a large dominant vessel that is totally occluded in the proximal segment. The distal RCA, posterior descending artery, and posterior ventricular branches fill by robust kfmi-nf-tiarl collaterals from the LAD and LCx. Recommendations: 1) Continue aggressive risk factor modification 2) No need for intervention to RCA, given robust collaterals. Alcohol abuse 03/05/2012 03/16/2012 Overview: Drinks beer - three 24oz cans 2-3 times a day [facility] alcohol withdrawal protocol in house Advise to stop binge drinking Unstable angina 03/04/2012 03/15/2012 Overview: LHC ( 03/04/2012 ) at [place] by Dr. 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 Presented with chest pain, no acute change in EKG, no elevation in the cardiac enzymes, (+) nuclear stress test, and a LHC which showed OM1 95-99% stenosis and RCA 100% stenosis. Patient underwent LHC at [facility] on 03/07, which revealed severe stenosis in LCx, occluded RCA. One BMS is placed in LCx. Patient is on aspirin, Plavix, Toprol XL, Lipitor on discharge. Smoking 03/04/2012 03/04/2012 Hypertension 03/04/2012 10/06/2017 Hypertrophy of prostate with out urinary obstruction and other lower urinary tract symptoms (LUTS) 07/28/2007 03/04/2012 Obesity (BMI 30-39.9) 07/30/2021 documented as of this encounter (statuses as of 03/24/2023) [facility] History of Past illness Narrative* Problem [...] and posterior ventricular branches fill by robust bflb-[id number]-hwahi collaterals from the LAD and LCx. Recommendations: 1) Continue aggressive risk factor modification 2) No need for intervention to RCA, given robust collaterals. Alcohol abuse 03/05/2012 03/16/2012 Overview: Drinks beer - three 24oz cans 2-3 times a day [facility] alcohol withdrawal protocol in house Advise to stop binge drinking Unstable angina 03/04/2012 03/15/2012 Overview: C ( 03/04/2012 ) at [place] by Dr. 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 Presented with chest pain, no acute change in EKG, no elevation in the cardiac enzymes, (+) nuclear stress test, and a LHC which showed OM1 95-99% stenosis and RCA 100% stenosis. Patient underwent LHC at [facility] on 03/07, which revealed severe stenosis in LCx, occluded RCA. One BMS is placed in LCx. Patient is on aspirin, Plavix, Toprol XL, Lipitor on discharge. Smoking 03/04/2012 03/04/2012 Hypertension 03/04/2012 10/06/2017 Hypertrophy of prostate with out urinary obstruction and other lower urinary tract symptoms (LUTS) 07/28/2007 03/04/2012 Obesity (BMI 30-39.9) 07/30/2021 documented as of this encounter (statuses as of 04/02/2023) [facility] History of Past illness Narrative* Problem [...] and posterior ventricular branches fill by robust swmk-[id number]-tkqof collaterals from the LAD and LCx. Recommendations: 1) Continue aggressive risk factor modification 2) No need for intervention to RCA, given robust collaterals. Alcohol abuse 03/05/2012 03/16/2012 Overview: Drinks beer - three 24oz cans 2-3 times a day [facility] alcohol withdrawal protocol in house Advise to stop binge drinking Unstable angina 03/04/2012 03/15/2012 Overview: LHC ( 03/04/2012 ) at [place] by Dr. 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 Presented with chest pain, no acute change in EKG, no elevation in the cardiac enzymes, (+) nuclear stress test, and a LHC which showed OM1 95-99% stenosis and RCA 100% stenosis. Patient underwent LHC at [facility] on 03/07, which revealed severe stenosis in LCx, occluded RCA. One BMS is placed in LCx. Patient is on aspirin, Plavix, Toprol XL, Lipitor on discharge. Smoking 03/04/2012 03/04/2012 Hypertension 03/04/2012 10/06/2017 Hypertrophy of prostate with out urinary obstruction and other lower urinary tract symptoms (LUTS) 07/28/2007 03/04/2012 Obesity (BMI 30-39.9) 2020 documented as of this encounter (statuses as of 04/08/2023) [facility] History of Past illness Narrative* Problem [...] and posterior ventricular branches fill by robust pgog-jw-padge collaterals from the LAD and LCx. Recommendations: 1) Continue aggressive risk factor modification 2) No need for intervention to RCA, given robust collaterals. Alcohol abuse 03/05/2012 03/16/2012 Overview: Drinks beer - three 24oz cans 2-3 times a day [facility] alcohol withdrawal protocol in house Advise to stop binge drinking Unstable angina 03/04/2012 03/15/2012 Overview: LHC ( 03/04/2012 ) at [place] by Dr. 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 Presented with chest pain, no acute change in EKG, no elevation in the cardiac enzymes, (+) nuclear stress test, and a LHC which showed OM1 95-99% stenosis and RCA 100% stenosis. Patient underwent LHC at [facility] on 03/07, which revealed severe stenosis in LCx, occluded RCA. One BMS is placed in LCx. Patient is on aspirin, Plavix, Toprol XL, Lipitor on discharge. Smoking 03/04/2012 03/04/2012 Hypertension 03/04/2012 10/06/2017 Hypertrophy of prostate with out urinary obstruction and other lower urinary tract symptoms (LUTS) 07/28/2007 03/04/2012 Obesity (BMI 30-39.9) 2020 documented as of this encounter (statuses as of 04/14/2023) [facility] History of Past illness Narrative* Problem [...] and posterior ventricular branches fill by robust ozea-re-iaoyy collaterals from the LAD and LCx. Recommendations: 1) Continue aggressive risk factor modification 2) No need for intervention to RCA, given robust collaterals. Alcohol abuse 03/05/2012 03/16/2012 Overview: Drinks beer - three 24oz cans 2-3 times a day [facility] alcohol withdrawal protocol in house Advise to stop binge drinking Unstable angina 03/04/2012 03/15/2012 Overview: [facility] ( 03/04/2012 ) at [place] by Dr. 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 Presented with chest pain, no acute change in EKG, no elevation in the cardiac enzymes, (+) nuclear stress test, and a LHC which showed OM1 95-99% stenosis and RCA 100% stenosis. Patient underwent LHC at [facility] on 03/07, which revealed severe stenosis in LCx, occluded RCA. One BMS is placed in LCx. Patient is on aspirin, Plavix, Toprol XL, Lipitor on discharge. Smoking 03/04/2012 03/04/2012 Hypertension 03/04/2012 10/06/2017 Hypertrophy of prostate with out urinary obstruction and other lower urinary tract symptoms (LUTS) 07/28/2007 03/04/2012 Obesity (BMI 30-39.9) 2020 documented as of this encounter (statuses as of 04/22/2023) [facility] History of Past illness Narrative* Problem [...] and posterior ventricular branches fill by robust vnyg-so-eefky collaterals from the LAD and LCx. Recommendations: 1) Continue aggressive risk factor modification 2) No need for intervention to RCA, given robust collaterals. Alcohol abuse 03/05/2012 03/16/2012 Overview: Drinks beer - three 24oz cans 2-3 times a day [facility] alcohol withdrawal protocol in house Advise to stop binge drinking Unstable angina 03/04/2012 03/15/2012 Overview: LHC ( 03/04/2012 ) at [place] by Dr. 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 Presented with chest pain, no acute change in EKG, no elevation in the cardiac enzymes, (+) nuclear stress test, and a LHC which showed OM1 95-99% stenosis and RCA 100% stenosis. Patient underwent LHC at [facility] on 03/07, which revealed severe stenosis in LCx, occluded RCA. One BMS is placed in LCx. Patient is on aspirin, Plavix, Toprol XL, Lipitor on discharge. Smoking 03/04/2012 03/04/2012 Hypertension 03/04/2012 10/06/2017 Hypertrophy of prostate with out urinary obstruction and other lower urinary tract symptoms (LUTS) 07/28/2007 03/04/2012 Obesity (BMI 30-39.9) 2020 documented as of this encounter (statuses as of 04/27/2023) [facility]2016 History of Past illness Narrative* Problem [...] and posterior ventricular branches fill by robust ntkg-[id number] collaterals from the LAD and LCx. Recommendations: 1) Continue aggressive risk factor modification 2) No need for intervention to RCA, given robust collaterals. Alcohol abuse 03/05/2012 03/16/2012 Overview: Drinks beer - three 24oz cans 2-3 times a day [facility] alcohol withdrawal protocol in house Advise to stop binge drinking Unstable angina 03/04/2012 03/15/2012 Overview: C ( 03/04/2012 ) at [place] by Dr. 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 Presented with chest pain, no acute change in EKG, no elevation in the cardiac enzymes, (+) nuclear stress test, and a LHC which showed OM1 95-99% stenosis and RCA 100% stenosis. Patient underwent LHC at [facility] on 03/07, which revealed severe stenosis in LCx, occluded RCA. One BMS is placed in LCx. Patient is on aspirin, Plavix, Toprol XL, Lipitor on discharge. Smoking 03/04/2012 03/04/2012 Hypertension 03/04/2012 10/06/2017 Hypertrophy of prostate with out urinary obstruction and other lower urinary tract symptoms (LUTS) 07/28/2007 03/04/2012 Obesity (BMI 30-39.9) 2020 documented as of this encounter (statuses as of 05/12/2023) [facility] History of Past illness Narrative* Problem [...] and posterior ventricular branches fill by robust ulvp-er-[id number] collaterals from the LAD and LCx. Recommendations: 1) Continue aggressive risk factor modification 2) No need for intervention to RCA, given robust collaterals. Alcohol abuse 03/05/2012 03/16/2012 Overview: Drinks beer - three 24oz cans 2-3 times a day [facility] alcohol withdrawal protocol in house Advise to stop binge drinking Unstable angina 03/04/2012 03/15/2012 Overview: LHC ( 03/04/2012 ) at [place] by Dr. 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 Presented with chest pain, no acute change in EKG, no elevation in the cardiac enzymes, (+) nuclear stress test, and a LHC which showed OM1 95-99% stenosis and RCA 100% stenosis. Patient underwent LHC at [facility] on 6/11, which revealed severe stenosis in LCx, occluded RCA. One BMS is placed in LCx. Patient is on aspirin, Plavix, Toprol XL, Lipitor on discharge. Smoking 03/04/2012 03/04/2012 Hypertension 03/04/2012 10/06/2017 Hypertrophy of prostate with out urinary obstruction and other lower urinary tract symptoms (LUTS) 07/28/2007 03/04/2012 Obesity (BMI 30-39.9) 2020 documented as of this encounter (statuses as of 06/02/2023) [facility] History of Past illness Narrative* Problem [...] and posterior ventricular branches fill by robust kaks-oj-oupcb collaterals from the LAD and LCx. Recommendations: 1) Continue aggressive risk factor modification 2) No need for intervention to RCA, given robust collaterals. Alcohol abuse 03/05/2012 03/16/2012 Overview: Drinks beer - three 24oz cans 2-3 times a day [facility] alcohol withdrawal protocol in house Advise to stop binge drinking Unstable angina 03/04/2012 03/15/2012 Overview: LHC ( 03/04/2012 ) at [place] by Dr. 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 Presented with chest pain, no acute change in EKG, no elevation in the cardiac enzymes, (+) nuclear stress test, and a LHC which showed OM1 95-99% stenosis and RCA 100% stenosis. Patient underwent LHC at [facility] on 03/07, which revealed severe stenosis in LCx, occluded RCA. One BMS is placed in LCx. Patient is on aspirin, Plavix, Toprol XL, Lipitor on discharge. Smoking 03/04/2012 03/04/2012 Hypertension 03/04/2012 10/06/2017 Hypertrophy of prostate with out urinary obstruction and other lower urinary tract symptoms (LUTS) 07/28/2007 03/04/2012 Obesity (BMI 30-39.9) 2020 documented as of this encounter (statuses as of 07/09/2023) [facility] History of Past illness Narrative* Problem [...] and posterior ventricular branches fill by robust enjj-tf-[id number] collaterals from the LAD and LCx. Recommendations: 1) Continue aggressive risk factor modification 2) No need for intervention to RCA, given robust collaterals. Alcohol abuse 03/05/2012 03/16/2012 Overview: Drinks beer - three 24oz cans 2-3 times a day [facility] alcohol withdrawal protocol in house Advise to stop binge drinking Unstable angina 03/04/2012 03/15/2012 Overview: C ( 03/04/2012 ) at [place] by Dr. 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 Presented with chest pain, no acute change in EKG, no elevation in the cardiac enzymes, (+) nuclear stress test, and a LHC which showed OM1 95-99% stenosis and RCA 100% stenosis. Patient underwent LHC at [facility] on 03/07, which revealed severe stenosis in LCx, occluded RCA. One BMS is placed in LCx. Patient is on aspirin, Plavix, Toprol XL, Lipitor on discharge. Smoking 03/04/2012 03/04/2012 Hypertension 03/04/2012 10/06/2017 Hypertrophy of prostate with out urinary obstruction and other lower urinary tract symptoms (LUTS) 07/28/2007 03/04/2012 Obesity (BMI 30-39.9) 2020 documented as of this encounter (statuses as of 07/27/2023) [facility] History of Past illness Narrative* Problem [...] and posterior ventricular branches fill by robust [id number]-udeks collaterals from the LAD and LCx. Recommendations: 1) Continue aggressive risk factor modification 2) No need for intervention to RCA, given robust collaterals. Alcohol abuse 03/05/2012 03/16/2012 Overview: Drinks beer - three 24oz cans 2-3 times a day [facility] alcohol withdrawal protocol in house Advise to stop binge drinking Unstable angina 03/04/2012 03/15/2012 Overview: LHC ( 03/04/2012 ) at [place] by Dr. 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 Presented with chest pain, no acute change in EKG, no elevation in the cardiac enzymes, (+) nuclear stress test, and a LHC which showed OM1 95-99% stenosis and RCA 100% stenosis. Patient underwent LHC at [facility] on 03/07, which revealed severe stenosis in LCx, occluded RCA. One BMS is placed in LCx. Patient is on aspirin, Plavix, Toprol XL, Lipitor on discharge. Smoking 03/04/2012 03/04/2012 Hypertension 03/04/2012 10/06/2017 Hypertrophy of prostate with out urinary obstruction and other lower urinary tract symptoms (LUTS) 07/28/2007 03/04/2012 Obesity (BMI 30-39.9) 2020 documented as of this encounter (statuses as of 07/27/2023) [facility] History of Past illness Narrative* Problem [...] and posterior ventricular branches fill by robust ievj-hx-mfmik collaterals from the LAD and LCx. Recommendations: 1) Continue aggressive risk factor modification 2) No need for intervention to RCA, given robust collaterals. Alcohol abuse 03/05/2012 03/16/2012 Overview: Drinks beer - three 24oz cans 2-3 times a day [facility] alcohol withdrawal protocol in house Advise to stop binge drinking Unstable angina 03/04/2012 03/15/2012 Overview: LHC ( 03/04/2012 ) at [place] by Dr. 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 Presented with chest pain, no acute change in EKG, no elevation in the cardiac enzymes, (+) nuclear stress test, and a LHC which showed OM1 95-99% stenosis and RCA 100% stenosis. Patient underwent LHC at [facility] on 03/07, which revealed severe stenosis in LCx, occluded RCA. One BMS is placed in LCx. Patient is on aspirin, Plavix, Toprol XL, Lipitor on discharge. Smoking 03/04/2012 03/04/2012 Hypertension 03/04/2012 10/06/2017 Hypertrophy of prostate with out urinary obstruction and other lower urinary tract symptoms (LUTS) 07/28/2007 03/04/2012 Obesity (BMI 30-39.9) 2020 documented as of this encounter (statuses as of 08/01/2023) [facility] History of Past illness Narrative* Problem [...] and posterior ventricular branches fill by robust [id number]-cq-[id number] collaterals from the LAD and LCx. Recommendations: 1) Continue aggressive risk factor modification 2) No need for intervention to RCA, given robust collaterals. Alcohol abuse 03/05/2012 03/16/2012 Overview: Drinks beer - three 24oz cans 2-3 times a day [facility] alcohol withdrawal protocol in house Advise to stop binge drinking Unstable angina 03/04/2012 03/15/2012 Overview: [facility] ( 03/04/2012 ) at [place] by Dr. 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 Presented with chest pain, no acute change in EKG, no elevation in the cardiac enzymes, (+) nuclear stress test, and a LHC which showed OM1 95-99% stenosis and RCA 100% stenosis. Patient underwent LHC at [facility] on 03/07, which revealed severe stenosis in LCx, occluded RCA. One BMS is placed in LCx. Patient is on aspirin, Plavix, Toprol XL, Lipitor on discharge. Smoking 03/04/2012 03/04/2012 Hypertension 03/04/2012 10/06/2017 Hypertrophy of prostate with out urinary obstruction and other lower urinary tract symptoms (LUTS) 07/28/2007 03/04/2012 Obesity (BMI 30-39.9) 2020 documented as of this encounter (statuses as of 08/01/2023) [facility] History of Past illness Narrative* Problem [...] and posterior ventricular branches fill by robust hiio-uz-ypkna collaterals from the LAD and LCx. Recommendations: 1) Continue aggressive risk factor modification 2) No need for intervention to RCA, given robust collaterals. Alcohol abuse 03/05/2012 03/16/2012 Overview: Drinks beer - three 24oz cans 2-3 times a day [facility] alcohol withdrawal protocol in house Advise to stop binge drinking Unstable angina 03/04/2012 03/15/2012 Overview: LHC ( 03/04/2012 ) at [place] by Dr. 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 Presented with chest pain, no acute change in EKG, no elevation in the cardiac enzymes, (+) nuclear stress test, and a LHC which showed OM1 95-99% stenosis and RCA 100% stenosis. Patient underwent LHC at [facility] on 03/07, which revealed severe stenosis in LCx, occluded RCA. One BMS is placed in LCx. Patient is on aspirin, Plavix, Toprol XL, Lipitor on discharge. Smoking 03/04/2012 03/04/2012 Hypertension 03/04/2012 10/06/2017 Hypertrophy of prostate with out urinary obstruction and other lower urinary tract symptoms (LUTS) 07/28/2007 03/04/2012 Obesity (BMI 30-39.9) 2020 documented as of this encounter (statuses as of 08/07/2023) [facility] History of Past illness Narrative* Problem [...] and posterior ventricular branches fill by robust gwal-us-nwqeb collaterals from the LAD and LCx. Recommendations: 1) Continue aggressive risk factor modification 2) No need for intervention to RCA, given robust collaterals. Alcohol abuse 03/05/2012 03/16/2012 Overview: Drinks beer - three 24oz cans 2-3 times a day [facility] alcohol withdrawal protocol in house Advise to stop binge drinking Unstable angina 03/04/2012 03/15/2012 Overview: [facility] ( 03/04/2012 ) at [place] by Dr. 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 Presented with chest pain, no acute change in EKG, no elevation in the cardiac enzymes, (+) nuclear stress test, and a LHC which showed OM1 95-99% stenosis and RCA 100% stenosis. Patient underwent LHC at [facility] on 03/07, which revealed severe stenosis in LCx, occluded RCA. One BMS is placed in LCx. Patient is on aspirin, Plavix, Toprol XL, Lipitor on discharge. Smoking 03/04/2012 03/04/2012 Hypertension 03/04/2012 10/06/2017 Hypertrophy of prostate with out urinary obstruction and other lower urinary tract symptoms (LUTS) 07/28/2007 03/04/2012 Obesity (BMI 30-39.9) 2020 documented as of this encounter (statuses as of 08/26/2023) [facility] History of Past illness Narrative* Problem [...] and posterior ventricular branches fill by robust xqxo-mq-qilwe collaterals from the LAD and LCx. Recommendations: 1) Continue aggressive risk factor modification 2) No need for intervention to RCA, given robust collaterals. Alcohol abuse 03/05/2012 03/16/2012 Overview: Drinks beer - three 24oz cans 2-3 times a day [facility] alcohol withdrawal protocol in house Advise to stop binge drinking Unstable angina 03/04/2012 03/15/2012 Overview: LHC ( 03/04/2012 ) at [place] by Dr. 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 Presented with chest pain, no acute change in EKG, no elevation in the cardiac enzymes, (+) nuclear stress test, and a LHC which showed OM1 95-99% stenosis and RCA 100% stenosis. Patient underwent LHC at [facility] on 03/07, which revealed severe stenosis in LCx, occluded RCA. One BMS is placed in LCx. Patient is on aspirin, Plavix, Toprol XL, Lipitor on discharge. Smoking 03/04/2012 03/04/2012 Hypertension 03/04/2012 10/06/2017 Hypertrophy of prostate with out urinary obstruction and other lower urinary tract symptoms (LUTS) 07/28/2007 03/04/2012 Obesity (BMI 30-39.9) 2020 documented as of this encounter (statuses as of 08/27/2023) [facility] Evaluation note* Diagnosis Onset Date Resolution Status Leg edema, left acute Atherosclerotic heart diseas e of 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 chronic Essential hypertension chron ic Presence of stent in coronary artery March, chronic Pure hypercholesterolemia [facility] Work Phone: 1(689) 345-817507-01-2012 Evaluation note* Diagnosis Onset Date Resolution Status Leg edema, left acute Atherosclerotic heart diseas e of 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 chronic Essential hypertension chron ic Presence of stent in coronary artery March, chronic Pure hypercholesterolemia [facility] Atherosclerotic heart diseas e of 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 chronic Essential hypertension chron ic Presence of stent in coronary artery March, chronic Pure hypercholesterolemia [facility] Work Phone: 1(629) 360-652807-01-2012 Evaluation note* Diagnosis Onset Date Resolution Status Atherosclerotic heart diseas e of 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 chronic Essential hypertension chron ic Presence of stent in coronary artery March, chronic Pure hypercholesterolemia [facility] Work Phone: Discharge summary Author Garry Warren [facility] June 09, 2023 12:55pm Note Date/Time June 09, 2023 11:49am [facility] Medical Records Department [address] [place] [address] Emergency Department Summary 06/09/23 MR#: [id number] Acct: [id number] Name: XAVI CABELLO Rep #:[id number] : 1955 68 From: Garry Warren DO [...] PFSH Medical History 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 Chest pain [...] your Primary Care Provider. Call [facility] ([phone]) or report to the closest Emergency Room. Call 911 if necessary. 06/09/23 [id number] <Electronically signed by Garry Warren DO> Cosigner Signature (if applicable): CC: Dr. Grant Krause MD ~ Signed [facility] Work Phone: Evaluation note* Diagnosis Erectile dysfunction, unspecified erectile dysfunction type [facility] Chronic pain of left knee- Primary Pain in joint, lower leg Primary osteoarthritis of left knee Primary localized osteoarthrosis, lower leg [facility] Bronchitis with bronchospasm Bronchitis, not specified as acute or chronic [facility] Mixed hyper[facility] Wheezing [facility] Diagnosis Controlled type 2 diabetes mellitus without complication, without long-term current use of insulin (HCC) [facility] Diagnosis Erectile dysfunction, unspecified erectile dysfunction type [facility] Diagnosis Oral dyskinesia- Primary Orofacial dyskinesia Coronary artery disease involving [place] coronary artery of [place] heart without angina pectoris Stented coronary artery Postsurgical percutaneous transluminal coronary angioplasty status Primary osteoarthritis of left knee Primary localized osteoarthrosis, lower leg [facility] Diagnosis Mixed hyperlipidemia Erectile dysfunction, unspecified erectile dysfunction type [facility] Diagnosis Controlled type 2 diabetes mellitus without complication, without long-term current use of insulin (HCC) [facility] Diagnosis Coronary artery disease involving [place] coronary artery of [place] heart without angina pectoris [facility] Diagnosis History of colonic polyps- Primary Personal history of colonic polyps [facility] [place] [facility] Diagnosis Special screening for malignant neoplasms, colon [facility] [place] [facility] Diagnosis Coronary artery disease involving [place] coronary artery of [place] heart without angina pectoris- Primary Erectile dysfunction, unspecified erectile dysfunction type [facility] [place] [facility]* Diagnosis Controlled type 2 diabetes mellitus without complication, without long-term current use of insulin (HCC) [facility] [place] [facility]* Diagnosis Medicare annual wellness visit, initial- Primary [facility]ine [facility] Oral dyskinesia Orofacial dyskinesia [facility] [place] [facility]* Diagnosis Erectile dysfunction, unspecified erectile dysfunction type Mixed hyperlipidemia [facility] [place] [facility]* Diagnosis Primary osteoarthritis of left knee- Primary Primary localized osteoarthrosis, lower leg [facility] [place] [facility]* Diagnosis Left knee pain, unspecified chronicity- Primary [facility] [place] [facility]* Diagnosis Diabetic mononeuropathy associated with diabetes mellitus due to underlying condition (HCC)- Primary Acquired hallux valgus, unspecified laterality Onychomycosis Dermatophytosis of nail Pain in toe of left foot Pain in limb Pain in toe of right foot Pain in limb [facility] [facility], [place] note* Diagnosis Primary osteoarthritis of left knee- Primary Primary localized osteoarthrosis, lower leg [facility] [place] [facility]* Diagnosis Wheezing [facility] [place] [facility]* Diagnosis Onset Date Resolution Status Atherosclerotic heart diseas e of match-e-be-[employer]ash-she-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 chronic Essential hypertension chron ic Pure hypercholesterolemia ch ronic Tinnitus [facility] Work Phone: Evaluation note* Diagnosis Coronary artery disease involving match-e-be-nash-she-wish band coronary artery of match-e-be-nash-she-wish band heart without angina pectoris documented [facility] [place] [facility]* Diagnosis Onychomycosis- Primary Dermatophytosis of nail Pain in toe of left foot Pain in limb Pain in toe of right foot Pain in limb Diabetic polyneuropathy associated with diabetes mellitus due to underlying condition (HCC) Acquired hallux valgus, unspecified laterality Hallux valgus of left foot [facility] [place] [facility]* Diagnosis Mixed hyperlipidemia [facility] [place] [facility]* Diagnosis Left knee pain, unspecified chronicity [facility] Diagnosis Tubular adenoma of colon- Primary Benign neoplasm of colon History of colonic polyps Personal history of colonic polyps [facility] Diagnosis History of colonic polyps- Primary Personal history of colonic polyps [facility] Diagnosis Screening for colon cancer- Primary Special screening for malignant neoplasms, colon History of colonic polyps Personal history of colonic polyps documented [facility] [place] [facility]* Diagnosis Coronary artery disease involving match-e-be[employer]nash-she-wish band coronary artery of match-e-be[place]ish band heart without angina pectoris [facility] Diagnosis Primary osteoarthritis of left knee- Primary Primary localized osteoarthrosis, lower leg documented [facility] [place] [facility]* Diagnosis Controlled type 2 diabetes mellitus without complication, without long-term current use of insulin (HCC) [facility] Diagnosis Onset Date Resolution Status Bilateral lower extremity edema chronic 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 Dyslipidemia chronic Erectile dysfunction chronic Essential hypertension chron ic Obesity (BMI 30.0-34.9) 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 [place] on CPAP chronic Presence of stent in coronary artery March, chronic Type II diabetes mellitus [facility] Work Phone: Evaluation note* Diagnosis Medicare annual wellness visit, subsequent- Primary Routine general medical examination at a health care facility Renal insufficiency Unspecified disorder of kidney and ureter [facility] Primary osteoarthritis of left knee- Primary Primary localized osteoarthrosis, lower leg [facility] [place] [facility]* Diagnosis Patient request for diagnostic testing- Primary Other specified examination [facility] Diagnosis Onychomycosis- Primary Dermatophytosis of nail Pain in toe of left foot Pain in limb Pain in toe of right foot Pain in limb Diabetic polyneuropathy associated with type 2 diabetes mellitus (HCC) Acquired hallux valgus, unspecified laterality Hallux valgus of left foot [facility] Diagnosis Oral dyskinesia Orofacial dyskinesia [facility]* Diagnosis Erectile dysfunction, unspecified erectile dysfunction type [facility] Diagnosis Erectile dysfunction, unspecified erectile dysfunction type [facility] Diagnosis Mixed [facility] Diagnosis Primary osteoarthritis of left knee- Primary Primary localized osteoarthrosis, lower leg [facility] Fall, initial encounter- Primary Mixed hyperlipidemia Encounter for immunization Need for other specified prophylactic vaccination against single bacterial disease Type 2 diabetes mellitus with stage 3a chronic kidney disease, without long-term current use of insulin (HCC) Coronary artery disease involving match-e-be-nash[place]she-wish band coronary artery of match-e-be-nash-she-wish band heart without angina pectoris Oral dyskinesia Orofacial dyskinesia [facility] [place] [facility]* Diagnosis Wheezing [facility] [place] [facility]* Diagnosis Onychomycosis- Primary Dermatophytosis of nail Pain in toe of left foot Pain in limb Pain in toe of right foot Pain in limb Diabetic polyneuropathy associated with type 2 diabetes mellitus (HCC) Acquired hallux valgus, unspecified laterality [facility] Diagnosis Chronic pain of left knee Pain in joint, lower leg [facility] [place] [facility]* Diagnosis Chest pain, unspecified type- Primary Coronary artery disease involving match-e-be-nash[employer]she-wish band coronary artery of match-e-be[place]nash-she-wish band heart without angina pectoris Type 2 diabetes mellitus with stage 3a chronic kidney disease, without long-term current use of insulin (HCC) Mixed hyperlipidemia [facility] Acute cough- Primary [facility]* Diagnosis Erectile dysfunction, unspecified erectile dysfunction type [facility] Diagnosis Coronary artery disease involving match-e-be-nash-she-wish band coronary artery of match-e-be-nash-she-wish band heart without angina pectoris [facility] Diagnosis Seborrheic keratosis- Primary Other seborrheic keratosis Controlled type 2 diabetes mellitus without complication, without long-term current use of insulin (HCC) Mixed hyperlipidemia Oral dyskinesia Orofacial dyskinesia [facility] [place] [facility]* Diagnosis Primary osteoarthritis of left knee- Primary Primary localized osteoarthrosis, lower leg [facility] Diagnosis Wheezing [facility] Diagnosis ALBAN on CPAP- Primary Obstructive sleep apnea (adult) (pediatric) Controlled type 2 diabetes mellitus without complication, without long-term current use of insulin (HCC) BPH with obstruction/lower urinary tract symptoms Hypertrophy of prostate with urinary obstruction and other lower urinary tract symptoms (LUTS) Essential hypertension Unspecified essential hypertension [facility] [place] [facility]* Diagnosis Onychomycosis- Primary Dermatophytosis of nail Pain in toe of left foot Pain in limb Pain in toe of right foot Pain in limb Diabetic polyneuropathy associated with type 2 diabetes mellitus (HCC) [facility] Diagnosis ALBAN on CPAP- Primary Obstructive sleep apnea (adult) (pediatric) documented [facility] this [facility] [place] [facility]* Diagnosis Primary osteoarthritis of left knee- Primary Primary localized osteoarthrosis, lower leg documented [facility] this [facility] [place] [facility]* Diagnosis BPH with obstruction/lower urinary tract symptoms Hypertrophy of prostate with urinary obstruction and other lower urinary tract symptoms (LUTS) [facility]* Diagnosis Erectile dysfunction, unspecified erectile dysfunction type documented [facility] this [facility] [place] [facility]* Diagnosis Medicare annual wellness visit, subsequent- Primary Routine general medical examination at a health care facility Oral dyskinesia Orofacial dyskinesia Type 2 diabetes mellitus with stage 3a chronic kidney disease, without long-term current use of insulin ([facility]) Cognitive deficits Unspecified persistent mental disorders due to conditions classified elsewhere Essential hypertension Unspecified essential hypertension Encounter for screening examination for other mental health and behavioral disorders Screening for depression documented [facility] [place] [facility]* Diagnosis Primary osteoarthritis of left knee- Primary Primary localized osteoarthrosis, lower leg documented [facility] this [facility] [place] [facility]* Diagnosis Cognitive impairment, mild, so stated- Primary Mild cognitive impairment, so stated Cognitive deficits Unspecified persistent mental disorders due to conditions classified elsewhere documented in this encounter [facility] noteNo assessment information availableWestern [facility] Work Phone: Evaluation note* Diagnosis Onychomycosis- Primary Dermatophytosis of nail Pain in toe of left foot Pain in limb Pain in toe of right foot Pain in limb Diabetic polyneuropathy associated with type 2 diabetes mellitus (HCC) Acquired hallux valgus of right foot Hallux valgus (acquired) [facility] Discharge instructions Additional Instructions COVID-positive. Take medication as provided. Hold your Ranexa and your Flomax while taking this medication. You may want to hold your rosuvastatin to prevent possible increasing myalgias for up to 3 days.. Monitor your pulse oximeter. Return if any dyspnea with pulse ox less than 88%.[facility] Work Phone: [facility] Work Phone: Reason for referral (narrative)* Outpatient Procedure (Routine) - Authorized Specialty Diagnoses / Procedures Referred By Contac t Referred To Contact [facility] Diagnoses History of colonic polyps Procedures COLONOSCOPY SCREENING COLONOSCOPY FLX DX W/COLLJ SPEC WHEN Madelin Alegria MD [address] [place] [address] [facility] [address] [place] [address] Referral ID Status Reason Start Date Expiration Date Visits Requested Visits Authorized [id number] Authorized Auto-Generat ed Referral 2 10/23/2022 1 1 [facility] for referral (narrative)* Diagnostic Procedure Only (Routine) - Pending Review Specialty Diagnoses / Procedures Referred By Contac t Referred To Contact XR IMAGING Diagnoses Left knee pain, unspecified chronicity Procedures XR KNEE GENERAL 4V AP BOTH/PA BOTH/LAT/MERC LEFT RADIOLOGIC EXAM KNEE COMPLETE 4/MORE VIEWS Nilda Kim PA-C [address] [place] [address] Xr Imaging Referral ID Status Reason Start Date Expiration Date Visits Requested Visits Authorized [id number] Pending Review Auto-Generat ed Referral 04/13/2023 05/12/2024 1 1 [facility] for referral (narrative)* Diagnostic Procedure Only (Routine) - Closed Specialty Diagnoses / Procedures Referred By Contac t Referred To Contact XR IMAGING Diagnoses Left knee pain, unspecified chronicity Procedures XR KNEE GENERAL 4V AP BOTH/PA BOTH/LAT/MERC LEFT RADIOLOGIC EXAM KNEE COMPLETE 4/MORE VIEWS Nilda Kim PA-C [address] [place] [address] [facility] [address] Referral ID Status Reason Start Date Expiration Date V isits Requested Visits Authorized [id number] Closed Auto-Generate d Referral 04/13/2023 05/12/2024 1 1 [facility] for referral (narrative)* Outpatient Procedure (Routine) - Closed Specialty Diagnoses / Procedures Referred By Contac t Referred To Contact [facility] Diagnoses History of colonic polyps Procedures COLONOSCOPY SCREENING COLONOSCOPY FLX DX W/COLLJ SPEC WHEN Madelin Alegria MD [address] [place] [address] [facility] [address] [place] [address] Referral ID Status Reason Start Date Expiration Date V isits Requested Visits Authorized [id number] Closed Auto-Generate d Referral 09/23/2022 10/23/2022 1 1 [facility] for referral (narrative)* Outpatient Procedure (Routine) - Pending Review Specialty Diagnoses / Procedures Referred By Contac t Referred To Contact [facility] Diagnoses History of colonic polyps Procedures COLONOSCOPY SCREENING COLONOSCOPY FLX DX W/COLLJ SPEC WHEN Madelin Alegria MD [address] [place] [address] [facility] [address] [place] [address] Referral ID Status Reason Start Date Expiration Date Visits Requested Visits Authorized [id number] Pending Review Auto-Generat ed Referral 08/04/2023 08/04/2024 1 1 [facility] for referral (narrative)* Outpatient Procedure (Routine) - Closed Specialty Diagnoses / Procedures Referred By Contac t Referred To Contact [facility] Diagnoses History of colonic polyps Procedures COLONOSCOPY SCREENING COLONOSCOPY FLX DX W/COLLJ SPEC WHEN Madelin Alegria MD [address] [place] [address] [facility] [address] [place] [address] Referral ID Status Reason Start Date Expiration Date V isits Requested Visits Authorized [id number] Closed Auto-Generate d Referral 08/25/2023 11/20/2023 1 1 [facility] for referral (narrative)* Diagnostic Procedure Only (Urgent) - Closed Specialty Diagnoses / Procedures Referred By Contac t Referred To Contact XR IMAGING Diagnoses Chronic pain of left knee Procedures XR KNEE GENERAL 4V AP BOTH/PA BOTH/LAT/MERC LEFT RADIOLOGIC EXAM KNEE COMPLETE 4/MORE VIEWS Amanda Yap APRN.CNP [address] [place] [address] [id number] [id number] Referral ID Status Reason Start Date Expiration Date V isits Requested Visits Authorized [id number] Closed Auto-Generate d Referral 11/28/2021 12/28/2022 1 1 [facility] for referral (narrative)No reason for referral information availableW[facility] Work Phone: Reason for visit Narrative* Diagnostic Procedure Only (Routine) - Closed Specialty Diagnoses / Procedures Referred By Contac t Referred To Contact XR IMAGING Diagnoses Left knee pain, unspecified chronicity Procedures XR KNEE GENERAL 4V AP BOTH/PA BOTH/LAT/MERC LEFT RADIOLOGIC EXAM KNEE COMPLETE 4/MORE VIEWS Nilda Kim PA-C [address] [place] [address] [place] [id number] Referral ID Status Reason Start Date Expiration Date V isits Requested Visits Authorized [id number] Closed Auto-Generate d Referral 04/13/2023 05/12/2024 1 1 [facility] for visit Narrative* Outpatient Procedure (Routine) - Closed Specialty Diagnoses / Procedures Referred By Contac t Referred To Contact [facility] Diagnoses History of colonic polyps Procedures COLONOSCOPY SCREENING COLONOSCOPY FLX DX W/COLLJ SPEC WHEN Madelin Alegria MD [address] [place] [address] [facility] [address] [place] [address] Referral ID Status Reason Start Date Expiration Date V isits Requested Visits Authorized [id number] Closed Auto-Generate d Referral 09/23/2022 10/23/2022 1 1 [facility] for visit Narrative* Outpatient Procedure (Routine) - Closed Specialty Diagnoses / Procedures Referred By Contac t Referred To Contact [facility] Diagnoses History of colonic polyps Procedures COLONOSCOPY SCREENING COLONOSCOPY FLX DX W/COLLJ SPEC WHEN Madelin Alegria MD [address] [place] [address] [facility] [address] [place] [address] Referral ID Status Reason Start Date Expiration Date V isits Requested Visits Authorized [id number] Closed Auto-Generate d Referral 08/25/2023 11/20/2023 1 1 [facility] for visit Narrative* Diagnostic Procedure Only (Urgent) - Closed Specialty Diagnoses / Procedures [facility] To Contact X[facility] IM[facility] Diagnoses Chronic pain of left knee Procedures XR KNEE GENERAL 4V AP BOTH/PA BOTH/LAT/MERC LEFT RADIOLOGIC EXAM KNEE COMPLETE 4/MORE VIEWS Amanda Yap, GAME PRESERVE MANAGER.SUPPORT ANALYST [address] [place] [address] [place] [id number] Referral ID Status Reason Start Date Expiration Date V isits Requested Visits Authorized [id number] Closed Auto-Generate d Referral 11/28/2021 12/28/2022 1 1 [facility] Advance Directives No Advanced Directives Records FoundDocuments on File Type Date 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 Advance Directive(s) 12/16/2016 10:50 AM Advance Directive(s) 12/18/2015 2:03 PM Advance Directive(s) 12/12/2015 10:53 AM Advance Directive(s) 12/09/2015 2:28 PM Advance Directive(s) 09/14/2013 6:17 PM Advance Directive(s) 08/01/2013 6:46 PM Advance Directive Response Recorded Date/ Time Advance Directives No April 23 8:40am Living Will No January 29, 2022 3: 24pm Power of Business Data Analyst No January 29, 2022 3:24pm Advance Directive Response Recorded Date/ Time Advance Directives No April 23 8:40am Living Will No April 25, 2022 10:59pm Power of Business Data Analyst No April 25 10:59pm Documents on File Type Date 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 Advance Directive(s) 09/14/2013 6:17 PM Advance Directive(s) 08/01/2013 6:46 PM Advance Directive Response Recorded Date/ Time Advance Directives on File No 2021 7:44am Advance Directives No May 26, 2022 7:44am Living Will No May 26 7:44am Power of Business Data Analyst No May 26, 2 022 7:44am Documents on File Type Date 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 Advance Directive(s) 09/14/2013 6:17 PM Advance Directive(s) 08/01/2013 6:46 PM Advance Directive Response Recorded Date/ Time Advance Directives No May 26, 2022 6:44am Living Will No May 26 6:44am Power of Business Data Analyst No May 26, 2 022 6:44am Advance Directive Response Recorded Date/ Time Advance Directives No May 26, 2022 7:44am Living Will No June 09, 2023 12:17pm Power of Business Data Analyst No May 12:17pm Advance Directive Response Recorded Date/ Time Advance Directives No May 26, 2022 7:44am Chief Complaint and Reason for Visit Chief Complaint Amb Documentation 5 MO F/U FACIAL TWITCING Reason for Visit Leg edema, left 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 Essential hypertension Presence of stent in coronary artery Pure hypercholesterolemia Chief Complaint FACIAL TWITCING 10 MO F/U CAD Coronary artery disease Reason for Visit Leg edema, left 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 Essential hypertension Presence of stent in coronary artery Pure hypercholesterolemia Chief Complaint FACIAL TWITCING 10 MO F/U CAD Coronary artery disease UPDATE H&P FOR CATH 05/05 COLD SX Reason for Visit Leg edema, left 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 Essential hypertension Presence of stent in coronary artery Pure hypercholesterolemia 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 Essential hypertension Presence of stent in coronary artery Pure hypercholesterolemia Chief Complaint 10 MO F/U CAD Coronary artery disease UPDATE H&P FOR CATH 05/05 COLD SX ABN STRESS ABN STRESS Reason for Visit Leg edema, left 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 Essential hypertension Presence of stent in coronary artery Pure hypercholesterolemia 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 Essential hypertension Presence of stent in coronary artery Pure hypercholesterolemia Chief Complaint Amb Documentation 6 m fu E ORDERS Reason for Visit Atherosclerotic hear t disease of match-e-be-nash-she-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 Essential hypertension Presence of stent in coronary artery Pure hypercholesterolemia Chief Complaint 6 M FU COVID TEST Reason for Visit Atherosclerotic hear t disease of match-e-be-nash-she-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 Essential hypertension [...] Oral dyskinesia Procedures CONSULT TO NEUROLOGY OFFICE/OUTPATIENT [facility] 60-74 MINUTES Grant Krause MD [address] [place] [address] Referral ID Status Reason Start Date Expiration Date Visits Requested Visits Authorized [id number] Pending Review PCP Requested Referral 05/11/2022 05/11/2023 1 1 Specialty Diagnoses / Procedures Referred By Gita frank Referred To Contact Podiatry Diagnoses Type 2 diabetes mellitus with stage 3a chronic kidney disease, without long-term current use of insulin (HCC) Bunion Procedures CONSULT TO PODIATRY OFFICE/OUTPATIENT [facility] 60-74 MINUTES Grant Krause MD [address] [place] [address] Referral ID Status Reason Start Date Expiration Date Visits Requested Visits Authorized [id number] Pending Review PCP Requested Referral 04/02/2023 04/01/2024 [...] or prosecute any alcohol or drug abuse patient.[facility] the event this information is protected by the Federal Confidentiality of Alcohol and Drug Abuse Patient Records regulations: The Federal rules restrict any use of the information to criminally investigate or prosecute any alcohol or drug abuse patient.[facility] the event this information is protected by the Federal Confidentiality of Alcohol and Drug Abuse Patient Records regulations: The Federal rules restrict any use of the information to criminally investigate or prosecute any alcohol or drug abuse patient.[facility] HospitalIn the event this information is protected by the Federal Confidentiality of Alcohol and Drug Abuse Patient Records regulations: The Federal rules restrict any use of the information to criminally investigate or prosecute any alcohol or drug abuse patient.[facility] Hospital[facility] the event this information is protected by the Federal Confidentiality of Alcohol and Drug Abuse Patient Records regulations: The Federal rules restrict any use of the information to criminally investigate or prosecute any alcohol or drug abuse patient.[facility] HospitalIn the event this information is protected by the Federal Confidentiality of Alcohol and Drug Abuse Patient Records regulations: The Federal rules restrict any use of the information to criminally investigate or prosecute any alcohol or drug abuse patient.[facility] HospitalIn the event this information is protected by the Federal Confidentiality of Alcohol and Drug Abuse Patient Records regulations: The Federal rules restrict any use of the information to criminally investigate or prosecute any alcohol or drug abuse patient.[facility] Hospital[facility] the event this information is protected by the Federal Confidentiality of Alcohol and Drug Abuse Patient Records regulations: The Federal rules restrict any use of the information to criminally investigate or prosecute any alcohol or drug abuse patient.[facility] the event this information is protected by the Federal Confidentiality of Alcohol and Drug Abuse Patient Records regulations: The Federal rules restrict any use of the information to criminally investigate or prosecute any alcohol or drug abuse patient.[facility] HospitalIn the event this information is protected by the Federal Confidentiality of Alcohol and Drug Abuse Patient Records regulations: The Federal rules restrict any use of the information to criminally investigate or prosecute any alcohol or drug abuse patient.[facility] HospitalIn the event this information is protected by the Federal Confidentiality of Alcohol and Drug Abuse Patient Records regulations: The Federal rules restrict any use of the information to criminally investigate or prosecute any alcohol or drug abuse patient.[facility] HospitalIn the event this information is protected by the Federal Confidentiality of Alcohol and Drug Abuse Patient Records regulations: The Federal rules restrict any use of the information to criminally investigate or prosecute any alcohol or drug abuse patient.[facility] HospitalIn the event this information is protected by the Federal Confidentiality of Alcohol and Drug Abuse Patient Records regulations: The Federal rules restrict any use of the information to criminally investigate or prosecute any alcohol or drug abuse patient.[facility] HospitalIn the event this information is protected by the Federal Confidentiality of Alcohol and Drug Abuse Patient Records regulations: The Federal rules restrict any use of the information to criminally investigate or prosecute any alcohol or drug abuse patient.[facility] HospitalIn the event this information is protected by the Federal Confidentiality of Alcohol and Drug Abuse Patient Records regulations: The Federal rules restrict any use of the information to criminally investigate or prosecute any alcohol or drug abuse patient.[facility] HospitalIn the event this information is protected by the Federal Confidentiality of Alcohol and Drug Abuse Patient Records regulations: The Federal rules restrict any use of the information to criminally investigate or prosecute any alcohol or drug abuse patient.[facility] HospitalIn the event this information is protected by the Federal Confidentiality of Alcohol and Drug Abuse Patient Records regulations: The Federal rules restrict any use of the information to criminally investigate or prosecute any alcohol or drug abuse patient.[facility] HospitalIn the event this information is protected by the Federal Confidentiality of Alcohol and Drug Abuse Patient Records regulations: The Federal rules restrict any use of the information to criminally investigate or prosecute any alcohol or drug abuse patient.[facility] HospitalIn the event this information is protected by the Federal Confidentiality of Alcohol and Drug Abuse Patient Records regulations: The Federal rules restrict any use of the information to criminally investigate or prosecute any alcohol or drug abuse patient.[facility] HospitalIn the event this information is protected by the Federal Confidentiality of Alcohol and Drug Abuse Patient Records regulations: The Federal rules restrict any use of the information to criminally investigate or prosecute any alcohol or drug abuse patient.[facility] HospitalIn the event this information is protected by the Federal Confidentiality of Alcohol and Drug Abuse Patient Records regulations: The Federal rules restrict any use of the information to criminally investigate or prosecute any alcohol or drug abuse patient.[facility] HospitalIn the event this information is protected by the Federal Confidentiality of Alcohol and Drug Abuse Patient Records regulations: The Federal rules restrict any use of the information to criminally investigate or prosecute any alcohol or drug abuse patient.[facility] HospitalIn the event this information is protected by the Federal Confidentiality of Alcohol and Drug Abuse Patient Records regulations: The Federal rules restrict any use of the information to criminally investigate or prosecute any alcohol or drug abuse patient.[facility] HospitalIn the event this information is protected by the Federal Confidentiality of Alcohol and Drug Abuse Patient Records regulations: The Federal rules restrict any use of the information to criminally investigate or prosecute any alcohol or drug abuse patient.[facility] HospitalIn the event this information is protected by the Federal Confidentiality of Alcohol and Drug Abuse Patient Records regulations: The Federal rules restrict any use of the information to criminally investigate or prosecute any alcohol or drug abuse patient.[facility] HospitalIn the event this information is protected by the Federal Confidentiality of Alcohol and Drug Abuse Patient Records regulations: The Federal rules restrict any use of the information to criminally investigate or prosecute any alcohol or drug abuse patient.[facility] HospitalIn the event this information is protected by the Federal Confidentiality of Alcohol and Drug Abuse Patient Records regulations: The Federal rules restrict any use of the information to criminally investigate or prosecute any alcohol or drug abuse patient.[facility] HospitalIn the event this information is protected by the Federal Confidentiality of Alcohol and Drug Abuse Patient Records regulations: The Federal rules restrict any use of the information to criminally investigate or prosecute any alcohol or drug abuse patient.[facility] HospitalIn the event this information is protected by the Federal Confidentiality of Alcohol and Drug Abuse Patient Records regulations: The Federal rules restrict any use of the information to criminally investigate or prosecute any alcohol or drug abuse patient.[facility] HospitalIn the event this information is protected by the Federal Confidentiality of Alcohol and Drug Abuse Patient Records regulations: The Federal rules restrict any use of the information to criminally investigate or prosecute any alcohol or drug abuse patient.[facility] HospitalIn the event this information is protected by the Federal Confidentiality of Alcohol and Drug Abuse Patient Records regulations: The Federal rules restrict any use of the information to criminally investigate or prosecute any alcohol or drug abuse patient.[facility] HospitalIn the event this information is protected by the Federal Confidentiality of Alcohol and Drug Abuse Patient Records regulations: The Federal rules restrict any use of the information to criminally investigate or prosecute any alcohol or drug abuse patient.[facility] HospitalIn the event this information is protected by the Federal Confidentiality of Alcohol and Drug Abuse Patient Records regulations: The Federal rules restrict any use of the information to criminally investigate or prosecute any alcohol or drug abuse patient.[facility] HospitalIn the event this information is protected by the Federal Confidentiality of Alcohol and Drug Abuse Patient Records regulations: The Federal rules restrict any use of the information to criminally investigate or prosecute any alcohol or drug abuse patient.[facility] HospitalIn the event this information is protected by the Federal Confidentiality of Alcohol and Drug Abuse Patient Records regulations: The Federal rules restrict any use of the information to criminally investigate or prosecute any alcohol or drug abuse patient.[facility] HospitalIn the event this information is protected by the Federal Confidentiality of Alcohol and Drug Abuse Patient Records regulations: The Federal rules restrict any use of the information to criminally investigate or prosecute any alcohol or drug abuse patient.[facility] HospitalIn the event this information is protected by the Federal Confidentiality of Alcohol and Drug Abuse Patient Records regulations: The Federal rules restrict any use of the information to criminally investigate or prosecute any alcohol or drug abuse patient.[facility] HospitalIn the event this information is protected by the Federal Confidentiality of Alcohol and Drug Abuse Patient Records regulations: The Federal rules restrict any use of the information to criminally investigate or prosecute any alcohol or drug abuse patient.[facility] HospitalIn the event this information is protected by the Federal Confidentiality of Alcohol and Drug Abuse Patient Records regulations: The Federal rules restrict any use of the information to criminally investigate or prosecute any alcohol or drug abuse patient.[facility] HospitalIn the event this information is protected by the Federal Confidentiality of Alcohol and Drug Abuse Patient Records regulations: The Federal rules restrict any use of the information to criminally investigate or prosecute any alcohol or drug abuse patient.[facility] HospitalIn the event this information is protected by the Federal Confidentiality of Alcohol and Drug Abuse Patient Records regulations: The Federal rules restrict any use of the information to criminally investigate or prosecute any alcohol or drug abuse patient.[facility] HospitalIn the event this information is protected by the Federal Confidentiality of Alcohol and Drug Abuse Patient Records regulations: The Federal rules restrict any use of the information to criminally investigate or prosecute any alcohol or drug abuse patient.[facility] HospitalIn the event this information is protected by the Federal Confidentiality of Alcohol and Drug Abuse Patient Records regulations: The Federal rules restrict any use of the information to criminally investigate or prosecute any alcohol or drug abuse patient.[facility] HospitalIn the event this information is protected by the Federal Confidentiality of Alcohol and Drug Abuse Patient Records regulations: The Federal rules restrict any use of the information to criminally investigate or prosecute any alcohol or drug abuse patient.[facility] HospitalIn the event this information is protected by the Federal Confidentiality of Alcohol and Drug Abuse Patient Records regulations: The Federal rules restrict any use of the information to criminally investigate or prosecute any alcohol or drug abuse patient.[facility] HospitalIn the event this information is protected by the Federal Confidentiality of Alcohol and Drug Abuse Patient Records regulations: The Federal rules restrict any use of the information to criminally investigate or prosecute any alcohol or drug abuse patient.[facility] HospitalIn the event this information is protected by the Federal Confidentiality of Alcohol and Drug Abuse Patient Records regulations: The Federal rules restrict any use of the information to criminally investigate or prosecute any alcohol or drug abuse patient.[facility] HospitalIn the event this information is protected by the Federal Confidentiality of Alcohol and Drug Abuse Patient Records regulations: The Federal rules restrict any use of the information to criminally investigate or prosecute any alcohol or drug abuse patient.[facility] HospitalIn the event this information is protected by the Federal Confidentiality of Alcohol and Drug Abuse Patient Records regulations: The Federal rules restrict any use of the information to criminally investigate or prosecute any alcohol or drug abuse patient.[facility] HospitalIn the event this information is protected by the Federal Confidentiality of Alcohol and Drug Abuse Patient Records regulations: The Federal rules restrict any use of the information to criminally investigate or prosecute any alcohol or drug abuse patient.[facility] HospitalIn the event this information is protected by the Federal Confidentiality of Alcohol and Drug Abuse Patient Records regulations: The Federal rules restrict any use of the information to criminally investigate or prosecute any alcohol or drug abuse patient.[facility] HospitalIn the event this information is protected by the Federal Confidentiality of Alcohol and Drug Abuse Patient Records regulations: The Federal rules restrict any use of the information to criminally investigate or prosecute any alcohol or drug abuse patient.[facility] HospitalIn the event this information is protected by the Federal Confidentiality of Alcohol and Drug Abuse Patient Records regulations: The Federal rules restrict any use of the information to criminally investigate or prosecute any alcohol or drug abuse patient.[facility] HospitalIn the event this information is protected by the Federal Confidentiality of Alcohol and Drug Abuse Patient Records regulations: The Federal rules restrict any use of the information to criminally investigate or prosecute any alcohol or drug abuse patient.[facility] HospitalIn the event this information is protected by the Federal Confidentiality of Alcohol and Drug Abuse Patient Records regulations: The Federal rules restrict any use of the information to criminally investigate or prosecute any alcohol or drug abuse patient.[facility] HospitalIn the event this information is protected by the Federal Confidentiality of Alcohol and Drug Abuse Patient Records regulations: The Federal rules restrict any use of the information to criminally investigate or prosecute any alcohol or drug abuse patient.[facility] HospitalIn the event this information is protected by the Federal Confidentiality of Alcohol and Drug Abuse Patient Records regulations: The Federal rules restrict any use of the information to criminally investigate or prosecute any alcohol or drug abuse patient.[facility] HospitalIn the event this information is protected by the Federal Confidentiality of Alcohol and Drug Abuse Patient Records regulations: The Federal rules restrict any use of the information to criminally investigate or prosecute any alcohol or drug abuse patient.[facility] HospitalIn the event this information is protected by the Federal Confidentiality of Alcohol and Drug Abuse Patient Records regulations: The Federal rules restrict any use of the information to criminally investigate or prosecute any alcohol or drug abuse patient.[facility] HospitalIn the event this information is protected by the Federal Confidentiality of Alcohol and Drug Abuse Patient Records regulations: The Federal rules restrict any use of the information to criminally investigate or prosecute any alcohol or drug abuse patient.[facility] HospitalIn the event this information is protected by the Federal Confidentiality of Alcohol and Drug Abuse Patient Records regulations: The Federal rules restrict any use of the information to criminally investigate or prosecute any alcohol or drug abuse patient.[facility] HospitalIn the event this information is protected by the Federal Confidentiality of Alcohol and Drug Abuse Patient Records regulations: The Federal rules restrict any use of the information to criminally investigate or prosecute any alcohol or drug abuse patient.[facility] HospitalIn the event this information is protected by the Federal Confidentiality of Alcohol and Drug Abuse Patient Records regulations: The Federal rules restrict any use of the information to criminally investigate or prosecute any alcohol or drug abuse patient.[facility] HospitalIn the event this information is protected by the Federal Confidentiality of Alcohol and Drug Abuse Patient Records regulations: The Federal rules restrict any use of the information to criminally investigate or prosecute any alcohol or drug abuse patient.[facility] HospitalIn the event this information is protected by the Federal Confidentiality of Alcohol and Drug Abuse Patient Records regulations: The Federal rules restrict any use of the information to criminally investigate or prosecute any alcohol or drug abuse patient.[facility] HospitalIn the event this information is protected by the Federal Confidentiality of Alcohol and Drug Abuse Patient Records regulations: The Federal rules restrict any use of the information to criminally investigate or prosecute any alcohol or drug abuse patient.[facility] HospitalIn the event this information is protected by the Federal Confidentiality of Alcohol and Drug Abuse Patient Records regulations: The Federal rules restrict any use of the information to criminally investigate or prosecute any alcohol or drug abuse patient.[facility] HospitalIn the event this information is protected by the Federal Confidentiality of Alcohol and Drug Abuse Patient Records regulations: The Federal rules restrict any use of the information to criminally investigate or prosecute any alcohol or drug abuse patient.[facility] HospitalIn the event this information is protected by the Federal Confidentiality of Alcohol and Drug Abuse Patient Records regulations: The Federal rules restrict any use of the information to criminally investigate or prosecute any alcohol or drug abuse patient.[facility] HospitalIn the event this information is protected by the Federal Confidentiality of Alcohol and Drug Abuse Patient Records regulations: The Federal rules restrict any use of the information to criminally investigate or prosecute any alcohol or drug abuse patient.[facility] HospitalIn the event this information is protected by the Federal Confidentiality of Alcohol and Drug Abuse Patient Records regulations: The Federal rules restrict any use of the information to criminally investigate or prosecute any alcohol or drug abuse patient.[facility] HospitalIn the event this information is protected by the Federal Confidentiality of Alcohol and Drug Abuse Patient Records regulations: The Federal rules restrict any use of the information to criminally investigate or prosecute any alcohol or drug abuse patient.[facility] HospitalIn the event this information is protected by the Federal Confidentiality of Alcohol and Drug Abuse Patient Records regulations: The Federal rules restrict any use of the information to criminally investigate or prosecute any alcohol or drug abuse patient.[facility] HospitalIn the event this information is protected by the Federal Confidentiality of Alcohol and Drug Abuse Patient Records regulations: The Federal rules restrict any use of the information to criminally investigate or prosecute any alcohol or drug abuse patient.[facility] HospitalIn the event this information is protected by the Federal Confidentiality of Alcohol and Drug Abuse Patient Records regulations: The Federal rules restrict any use of the information to criminally investigate or prosecute any alcohol or drug abuse patient.[facility] HospitalIn the event this information is protected by the Federal Confidentiality of Alcohol and Drug Abuse Patient Records regulations: The Federal rules restrict any use of the information to criminally investigate or prosecute any alcohol or drug abuse patient.[facility] HospitalIn the event this information is protected by the Federal Confidentiality of Alcohol and Drug Abuse Patient Records regulations: The Federal rules restrict any use of the information to criminally investigate or prosecute any alcohol or drug abuse patient.[facility] HospitalIn the event this information is protected by the Federal Confidentiality of Alcohol and Drug Abuse Patient Records regulations: The Federal rules restrict any use of the information to criminally investigate or prosecute any alcohol or drug abuse patient.[facility] HospitalIn the event this information is protected by the Federal Confidentiality of Alcohol and Drug Abuse Patient Records regulations: The Federal rules restrict any use of the information to criminally investigate or prosecute any alcohol or drug abuse patient.[facility] HospitalIn the event this information is protected by the Federal Confidentiality of Alcohol and Drug Abuse Patient Records regulations: The Federal rules restrict any use of the information to criminally investigate or prosecute any alcohol or drug abuse patient.[facility] HospitalIn the event this information is protected by the Federal Confidentiality of Alcohol and Drug Abuse Patient Records regulations: The Federal rules restrict any use of the information to criminally investigate or prosecute any alcohol or drug abuse patient.[facility] HospitalIn the event this information is protected by the Federal Confidentiality of Alcohol and Drug Abuse Patient Records regulations: The Federal rules restrict any use of the information to criminally investigate or prosecute any alcohol or drug abuse patient.[facility]In the event this information is protected by the Federal Confidentiality of Alcohol and Drug Abuse Patient Records regulations: The Federal rules restrict any use of the information to criminally investigate or prosecute any alcohol or drug abuse patient.[facility] HospitalIn the event this information is protected by the Federal Confidentiality of Alcohol and Drug Abuse Patient Records regulations: The Federal rules restrict any use of the information to criminally investigate or prosecute any alcohol or drug abuse patient.[facility] HospitalIn the event this information is protected by the Federal Confidentiality of Alcohol and Drug Abuse Patient Records regulations: The Federal rules restrict any use of the information to criminally investigate or prosecute any alcohol or drug abuse patient.[facility] HospitalIn the event this information is protected by the Federal Confidentiality of Alcohol and Drug Abuse Patient Records regulations: The Federal rules restrict any use of the information to criminally investigate or prosecute any alcohol or drug abuse patient.[facility] HospitalIn the event this information is protected by the Federal Confidentiality of Alcohol and Drug Abuse Patient Records regulations: The Federal rules restrict any use of the information to criminally investigate or prosecute any alcohol or drug abuse patient.[facility] HospitalIn the event this information is protected by the Federal Confidentiality of Alcohol and Drug Abuse Patient Records regulations: The Federal rules restrict any use of the information to criminally investigate or prosecute any alcohol or drug abuse patient.[facility]In the event this information is protected by the Federal Confidentiality of Alcohol and Drug Abuse Patient Records regulations: The Federal rules restrict any use of the information to criminally investigate or prosecute any alcohol or drug abuse patient.[facility] HospitalIn the event this information is protected by the Federal Confidentiality of Alcohol and Drug Abuse Patient Records regulations: The Federal rules restrict any use of the information to criminally investigate or prosecute any alcohol or drug abuse patient.[facility] HospitalIn the event this information is protected by the Federal Confidentiality of Alcohol and Drug Abuse Patient Records regulations: The Federal rules restrict any use of the information to criminally investigate or prosecute any alcohol or drug abuse patient.[facility] HospitalIn the event this information is protected by the Federal Confidentiality of Alcohol and Drug Abuse Patient Records regulations: The Federal rules restrict any use of the information to criminally investigate or prosecute any alcohol or drug abuse patient.[facility] HospitalIn the event this information is protected by the Federal Confidentiality of Alcohol and Drug Abuse Patient Records regulations: The Federal rules restrict any use of the information to criminally investigate or prosecute any alcohol or drug abuse patient.[facility] HospitalIn the event this information is protected by the Federal Confidentiality of Alcohol and Drug Abuse Patient Records regulations: The Federal rules restrict any use of the information to criminally investigate or prosecute any alcohol or drug abuse patient.[facility] HospitalIn the event this information is protected by the Federal Confidentiality of Alcohol and Drug Abuse Patient Records regulations: The Federal rules restrict any use of the information to criminally investigate or prosecute any alcohol or drug abuse patient.[facility] HospitalIn the event this information is protected by the Federal Confidentiality of Alcohol and Drug Abuse Patient Records regulations: The Federal rules restrict any use of the information to criminally investigate or prosecute any alcohol or drug abuse patient.[facility] HospitalIn the event this information is protected by the Federal Confidentiality of Alcohol and Drug Abuse Patient Records regulations: The Federal rules restrict any use of the information to criminally investigate or prosecute any alcohol or drug abuse patient.[facility] HospitalIn the event this information is protected by the Federal Confidentiality of Alcohol and Drug Abuse Patient Records regulations: The Federal rules restrict any use of the information to criminally investigate or prosecute any alcohol or drug abuse patient.[facility] HospitalIn the event this information is protected by the Federal Confidentiality of Alcohol and Drug Abuse Patient Records regulations: The Federal rules restrict any use of the information to criminally investigate or prosecute any alcohol or drug abuse patient.[facility] Reason for Visit (unrecogniz ed section [...] NEW HIGH MDM 60-74 MINUTES Amanda Yap APRN.SUPPORT ANALYST [address] [place] [address] Referral ID Status Reason Start Date Expiration Date Visits Requested Visits Authorized [id number] Pending Review PCP Requested Referral 11/28/2021 11/28/2022 [...] Contact Gerontology Diagnoses Cognitive deficits Procedures OFFICE/OUTPATIENT [facility] 60 MINUTES Liat Smith, GAME PRESERVE MANAGER.SUPPORT ANALYST [address] [place] [address] Phone: tel: fax: Referral ID Status Reason Start Date Expiration Date V isits Requested Visits Authorized [id number] Closed PCP Requested Referral 04/10/2025 04/10/2026 1 1 Reason Comments Established Patient Follow Up Diabetic Foot Care Care Teams (unrecognized sec tion and content) Department Store Door Greeter Relationship Specialty Start Date End Date rGant Krause MD [address] [place] [address] PCP - General 07/18/02 Alysia, Joseph S [address] [place] [address] Physician Cardiology 01/25/19 Department Store Door Greeter Relationship Specialty Start Date End Date Grant Krause MD [address] [place] [address] PCP - General 07/18/02 Alysia, Mo S [address] [place] [address] Physician Cardiology 01/25/19 Department Store Door Greeter Relationship Specialty Start Date End Date Grant Krause MD [address] [place] [address] PCP - General 07/18/02 Alysia, Mo S [address] [place] [address] Physician Cardiology 01/25/19 Department Store Door Greeter Relationship Specialty Start Date End Date Grant Krause MD [address] [place] [address] PCP - General 07/18/02 Alysia, Joseph S [address] [place] [address] Physician Cardiology 01/25/19 Department Store Door Greeter Relationship Specialty Start Date End Date Grant Krause MD [address] [facility] [place] [address] PCP - General 07/18/02 Alsyia, Joseph S [address] [place] [address] Physician Cardiology 01/25/19 Department Store Door Greeter Relationship Specialty Start Date End Date Grant Krause MD [address] [facility] [place] [place] [address] PCP - General 07/18/02 Alysia, Joseph S [address] [place] [address] Physician Cardiology 01/25/19 Department Store Door Greeter Relationship Specialty Start Date End Date Grant Krause MD [address] [facility] [place] [place] [address] PCP - General 07/18/02 Alysia, Mo S [address] [place] [address] Physician Cardiology 01/25/19 Department Store Door Greeter Relationship Specialty Start Date End Date Grant Krause MD [address] [facility] [place] [place] [address] PCP - General 07/18/02 Alysia, Joseph S [address] [place] [address] Physician Cardiology 01/25/19 Department Store Door Greeter Relationship Specialty Start Date End Date Grant Krause MD [address] [facility] [place] [place] [address] PCP - General 07/18/02 Alysia, Mo S [address] [place] [address] Physician Cardiology 01/25/19 Department Store Door Greeter Relationship Specialty Start Date End Date Grant Krause MD [address] [facility] [place] [address] PCP - General 07/18/02 Alysia, Joseph S [address] [place] [address] Physician Cardiology 01/25/19 Department Store Door Greeter Relationship Specialty Start Date End Date Grant Krause MD [address] [facility] [place] [place] [address] PCP - General 07/18/02 Alysia, Joseph S [address] [place] [address] Physician Cardiology 01/25/19 Department Store Door Greeter Relationship Specialty Start Date End Date Grant Krause MD [address] [facility] [place] [address] PCP - General 07/18/02 Alysia, Joseph S [address] [place] [address] Physician Cardiology 01/25/19 Department Store Door Greeter Relationship Specialty Start Date End Date Grant Krause MD [address] [facility] [place] [address] PCP - General 07/18/02 Alysia, Joseph S [address] [place] [address] Physician Cardiology 01/25/19 Department Store Door Greeter Relationship Specialty Start Date End Date Grant Krause MD [address] [place] [address] PCP - General 07/18/02 Alysia, Om S [address] [place] [address] Physician Cardiology 01/25/19 Department Store Door Greeter Relationship Specialty Start Date End Date Grant Krause MD [address] [facility] [place] [address] PCP - General 07/18/02 Alysia, Mo S [address] [place] [address] Physician Cardiology 01/25/19 Department Store Door Greeter Relationship Specialty Start Date End Date Grant Krause MD [address] [facility] [place] [address] PCP - General 07/18/02 Alysia, Joseph S [address] [place] [address] Physician Cardiology 01/25/19 Department Store Door Greeter Relationship Specialty Start Date End Date Grant Krause MD [address] [facility] [place] [address] PCP - General 07/18/02 Alysia, Joseph S [address] [place] [address] Physician Cardiology 01/25/19 Team Status: Active Member [...] Krause MD Primary Care Provider Active Dr. Chirag Barakat MD Attending Provider, Referring Provider Active Department Store Door Greeter Relationship Specialty Start Date End Date Grant Krause MD [address] [place] [address] PCP - General 07/18/02 Alysia, Mo S [address] [place] [address] Physician Cardiology 01/25/19 Department Store Door Greeter Relationship Specialty Start Date End Date Grant Krause MD [address] [facility] [place] [address] PCP - General 07/18/02 Alysia, Mo S [address] [place] [address] Physician Cardiology 01/25/19 Department Store Door Greeter Relationship Specialty Start Date End Date Grant Krause MD [address] [facility] [place] [address] PCP - General 07/18/02 Alysia, Mo S [address] [place] [address] Physician Cardiology 01/25/19 Department Store Door Greeter Relationship Specialty Start Date End Date Grant Krause MD [address] [facility] [place] [address] PCP - General 07/18/02 Alysia, Joseph S [address] [place] [address] Physician Cardiology 01/25/19 Department Store Door Greeter Relationship Specialty Start Date End Date Grant Krause MD [address] [facility] [place] [address] PCP - General 07/18/02 Alysia, Joseph S [address] [address] Physician Cardiology 01/25/19 Department Store Door Greeter Relationship Specialty Start Date End Date Grant Krause MD [address] [place] [address] PCP - General 07/18/02 Alysia, Mo S [address] [address] Physician Cardiology 01/25/19 Department Store Door Greeter Relationship Specialty Start Date End Date Grant Krause MD [address] [place] [address] PCP - General 07/18/02 Alysia, Mo S [address] [address] Physician Cardiology 01/25/19 Department Store Door Greeter Relationship Specialty Start Date End Date Grant Krause MD [address] [place] [address] PCP - General 07/18/02 Alysia, Mo S [address] [address] Physician Cardiology 01/25/19 Department Store Door Greeter Relationship Specialty Start Date End Date Grant Krause MD [address] [place] [address] PCP - General 07/18/[address] [address] Physician Cardiology 01/25/19 Team Status: Inactive Member Role Status Dates Dr. Grant Krause MD Primary Care Provider, Refer ring Provider Active Nagi Gan CUSTOMER RELATIONS SPECIALIST, CUSTOMER RELATIONS SPECIALIST-C Attending Provider Active Team Status: Inactive Member Role Status Dates Dr. Grant Krause MD Primary Care Provider Active Dr. Garry Warren DO Emergency Provider Active Department Store Door Greeter Relationship Specialty Start Date End Date Grant Krause MD [address] [place] [address] PCP - General 07/18/02 Mo Hatfield MD [address] [address] Physician Cardiology 01/25/19 Department Store Door Greeter Relationship Specialty Start Date End Date Grant Krause MD [address] [place] [address] PCP - General 07/18/02 Mo Hatfield MD [address] [address] Physician Cardiology 01/25/19 Department Store Door Greeter Relationship Specialty Start Date End Date Grant Krause MD [address] [place] [address] PCP - General 07/18/02 Mo Hatfield MD [address] [address] Physician Cardiology 01/25/19 Department Store Door Greeter Relationship Specialty Start Date End Date Grant Krause MD [address] [facility] [place] [address] PCP - General 07/18/02 Mo Hatfield MD [address] [place] [address] Physician Cardiology 01/25/19 Department Store Door Greeter Relationship Specialty Start Date End Date Grant Krause MD [address] [place] [address] PCP - General 07/18/02 Mo Hatfield MD [address] [address] Physician Cardiology 01/25/19 Department Store Door Greeter Relationship Specialty Start Date End Date Grant Krause MD [address] [place] [address] PCP - General 07/18/02 Mo Hatfield MD [address] [address] Physician Cardiology 01/25/19 Department Store Door Greeter Relationship Specialty Start Date End Date Grant Krause MD [address] [place] [address] PCP - General 07/18/02 Mo Hatfield MD [address] [address] Physician Cardiology 01/25/19 Department Store Door Greeter Relationship Specialty Start Date End Date Grant Krause MD [address] [facility] [place] [place] [address] PCP - General 07/18/02 Mo Hatfield MD [address] [place] [address] Physician Cardiology 01/25/19 Department Store Door Greeter Relationship Specialty Start Date End Date Grant Krause MD [address] [facility] [place] [place] [address] PCP - General 07/18/02 Mo Hatfield MD [address] [address] Physician Cardiology 01/25/19 Team Status: Inactive Member [...] Dr. Calderon Cordova MD Attending Provider Active Department Store Door Greeter Relationship Specialty Start Date End Date Grant Krause MD [address] [facility] [place] [place] [address] PCP - General 07/18/02 Mo Hatfield MD [address] [address] Physician Cardiology 01/25/19 Department Store Door Greeter Relationship Specialty Start Date End Date Grant Krause MD [address] [place] [address] PCP - General 07/18/02 Mo Hatfield MD [address] [address] Physician Cardiology 01/25/19 Department Store Door Greeter Relationship Specialty Start Date End Date Grant Krause MD [address] [place] [address] PCP - General 07/18/02 Mo Hatfield MD [address] [address] Physician Cardiology 01/25/19 Department Store Door Greeter Relationship Specialty Start Date End Date Grant Krause MD [address] [place] [address] PCP - General 07/18/02 Mo Hatfield MD [address] [address] Physician Cardiology 01/25/19 Department Store Door Greeter Relationship Specialty Start Date End Date Grant Krause MD [address] [place] [address] PCP - General 07/18/02 Mo Hatfield MD [address] [address] Physician Cardiology 01/25/19 Department Store Door Greeter Relationship Specialty Start Date End Date Grant Krause MD [address] [place] [address] PCP - General 07/18/02 Mo Hatfield MD [address] [address] Physician Cardiology 01/25/19 Department Store Door Greeter Relationship Specialty Start Date End Date Grant Krause MD [address] [place] [address] PCP - General 07/18/02 Mo Hatfield MD [address] [address] Physician Cardiology 01/25/19 Department Store Door Greeter Relationship Specialty Start Date End Date Grant Krause MD [address] [place] [address] PCP - General 07/18/02 Mo Hatfield MD [address] [address] Physician Cardiology 01/25/19 Department Store Door Greeter Relationship Specialty Start Date End Date Grant Krause MD [address] [place] [address] PCP - General 07/18/02 Mo Hatfield MD [address] [address] Physician Cardiology 01/25/19 Department Store Door Greeter Relationship Specialty Start Date End Date Grant Krause MD [address] [place] [address] PCP - General 07/18/02 Mo Hatfield MD [address] [place] [address] Physician Cardiology 01/25/19 Department Store Door Greeter Relationship Specialty Start Date End Date Grant Krause MD [address] [facility] [place] [place] [address] PCP - General 07/18/02 Mo Hatfield MD [address] [place] [address] Physician Cardiology 01/25/19 Department Store Door Greeter Relationship Specialty Start Date End Date Grant Krause MD [address] [place] [address] PCP - General 07/18/02 Mo Hatfield MD [address] [place] [address] Physician Cardiology 01/25/19 Department Store Door Greeter Relationship Specialty Start Date End Date Grant Krause MD [address] [place] [address] PCP - General 07/18/02 Mo Hatfield MD [address] [address] Physician Cardiology 01/25/19 Liat Smith, GAME PRESERVE MANAGER.SUPPORT ANALYST [address] [place] [address] Medical Voucher Clerk Internal Medicine 09/04/24 Department Store Door Greeter Relationship Specialty Start Date End Date Grant Krause MD [address] [facility] [place] [address] PCP - General 07/18/02 Mo Hatfield MD [address] [place] [address] Physician Cardiology 01/25/19 Liat Smith, GAME PRESERVE MANAGER.SUPPORT ANALYST [address] [facility] [place] [place] [address] Medical Voucher Clerk Internal Medicine 09/04/24 Department Store Door Greeter Relationship Specialty Start Date End Date Grant Krause MD [address] [facility] [place] [address] PCP - General 07/18/02 Mo Hatfield MD [address] [place] [address], [place] [address] Physician Cardiology 01/25/19 Liat Smith, GAME PRESERVE MANAGER.SUPPORT ANALYST [address] [facility] [place] [place] [address] Medical Voucher Clerk Internal Medicine 09/04/24 Department Store Door Greeter Relationship Specialty Start Date End Date Grant Krause MD [address] [facility] [place] [address] PCP - General 07/18/02 Mo Hatfield MD [address] [place] [address], [place] [address] Physician Cardiology 01/25/19 Liat Smith, GAME PRESERVE MANAGER.SUPPORT ANALYST [address] [facility] [place] [place] [address] Medical Voucher Clerk Internal Medicine 09/04/24 Department Store Door Greeter Relationship Specialty Start Date End Date Grant Krause MD [address] [facility] [place] [address] PCP - General 07/18/02 Mo Hatfield MD [address] [place] [address] Physician Cardiology 01/25/19 Liat Smith, GAME PRESERVE MANAGER.SUPPORT ANALYST [address] [facility] [place] [address] Medical Voucher Clerk Internal Medicine 09/04/24 Department Store Door Greeter Relationship Specialty Start Date End Date Grant Krause MD [address] [facility] [place] [address] PCP - General 07/18/02 Mo Hatfield MD [address] [place] [address] Physician Cardiology 01/25/19 Liat Smith, GAME PRESERVE MANAGER.SUPPORT ANALYST [address] [facility] [place] [address] Medical Voucher Clerk Internal Medicine 09/04/24 Department Store Door Greeter Relationship Specialty Start Date End Date Grant Krause MD [address] [facility] [place] [address] PCP - General 07/18/02 Mo Hatfield MD [address] [place] [address] Physician Cardiology 01/25/19 Liat Smith, GAME PRESERVE MANAGER.SUPPORT ANALYST [address] [facility] [place] [place] [address] Medical Voucher Clerk Internal Medicine 09/04/24 Department Store Door Greeter Relationship Specialty Start Date End Date Grant Krause MD [address] [place] [address] PCP - General 07/18/02 Mo Hatfield MD [address] [facility] [address] [place] [address] Physician Cardiology 01/25/19 Liat Smith, GAME PRESERVE MANAGER.SUPPORT ANALYST [address] [place] [address] Medical Voucher Clerk Internal Medicine 09/04/24 Department Store Door Greeter Relationship Specialty Start Date End Date Grant Krause MD [address] [place] [address] PCP - General 07/18/02 Mo Hatfield MD [address] [place] [address] Physician Cardiology 01/25/19 Liat Smith, GAME PRESERVE MANAGER.SUPPORT ANALYST [address] [place] [address] [facility] Internal Medicine 09/04/24 Department Store Door Greeter Relationship Specialty Start Date End Date Grant Krause MD [address] [place] [address] PCP - General 07/18/02 Mo Hatfield MD [address] [place] [address] Physician Cardiology 01/25/19 Liat Smith, GAME PRESERVE MANAGER.SUPPORT ANALYST [address] [facility] [place] [place] [address] Medical Voucher Clerk Internal Medicine 09/04/24 Department Store Door Greeter Relationship Specialty Start Date End Date Grant Krause MD [address] [facility] [place] [address] PCP - General 07/18/02 Mo Hatfield MD [address] [facility] [address] [place] [address] Physician Cardiology 01/25/19 Liat Smith, GAME PRESERVE MANAGER.SUPPORT ANALYST [address] [facility] [place] [place] [address] Medical Voucher Clerk Internal Medicine 09/04/24 Department Store Door Greeter Relationship Specialty Start Date End Date Grant Krause MD [address] [facility] [place] [address] PCP - General 07/18/02 Mo Hatfield MD [address] [facility] [address] [place] [address] Physician Cardiology 01/25/19 Liat Smith, GAME PRESERVE MANAGER.SUPPORT ANALYST [address] [facility] [place] [address] Medical Voucher Clerk Internal Medicine 09/04/24 Team Status: Active Member Role/Relationship Status Dates Dr. Grant Krause MD Primary Care Provider Active Team Status: Inactive Member Role/Relationship Status Dates Dr. Grant Krause MD Primary Care Provider Active Start: May 09, 2025 End: May 09, 2025 Tito Evans CUSTOMER RELATIONS SPECIALIST, CUSTOMER RELATIONS SPECIALIST-C Attending Provider Active Start: May 09, 2025 End: May 09, 2025 Tito Evans CUSTOMER RELATIONS SPECIALIST, CUSTOMER RELATIONS SPECIALIST-C Referring Provider Active Start: May 09, 2025 End: May 09, 2025 Department Store Door Greeter Relationship Specialty Start Date End Date Grant Krause MD [address] [place] [address] PCP - General 07/18/02 Mo Hatfield MD [address] [id number] Physician Cardiology 01/25/19 Liat Smith, GAME PRESERVE MANAGER.SUPPORT ANALYST [address] [place], [place] [address] Medical Voucher Clerk Internal Medicine 09/04/24 Goals (unrecognized section and [...] section and content) DATE CREATED AUTHOR 05/15/2025 [facility] DATE CREATED AUTHOR AUTHOR'S ORGANIZ ATION 07/12/2025 [facility] nt DATE CREATED AUTHOR AUTHOR'S ORGANIZ ATION 08/06/[address] [facility] FOR RECORDS PERTAINING TO PATIENTS WHO ARE [...] BE BASED ON THE PRIMARY CLINICAL RECORDS. [facility]. provides no warranty or guarantee of the accuracy or completeness of information in this document.
[2025-09-26 18:26] VITALS: PULSE 80; RESP 16
[2025-09-26 20:33] VITALS: BP 124/69; PULSE 71; RESP 15; RESP 16; TEMP 36.8; O2SAT 95
== END 2025-09-26 20:35 | disposition home or self-care (01) ==
PROVIDERS: Emergency Provider Emergency Medicine; PCP Internal Medicine; Visit Provider Emergency Medicine
DX: J44.1 Chronic obstructive pulmonary disease with (acute) exacerbation (principal); J44.0 Chronic obstructive pulmonary disease with (acute) lower respiratory infection; J10.1 Influenza due to other identified influenza virus with other respiratory manifestations
CPT/HCPCS: 71046; 94640; 99283